=== PATIENT | male | born 1955 | race Caucasian/White ===

== ENCOUNTER 2016-12-16 14:08 | Inpatient (IN) | payer MEDICARE, MEDICAID ==
[~2016-12-16] VITALS: Ht 167.6 cm; Wt 58.5 kg
[~2016-12-16 14:08] MED LIST: AC325T PO; ACET650S13 RC; ALBU0.8322 IH; AZTH250C PO; CRANBERRY PO; DCS100C PO; MAGN64TA8 PO; MULT-963 PO; NF-ESOM40C PO; OLN10T PO; ONDAN4ODT PO; PHEN64.8 PO; PNT40TEC PO; SULF-109 PO
--- OUTSIDE RECORDS SUMMARY | 2016-12-16 14:15 | XMS REPORT | Continuity of Care Document ---
Author Author [facility] Organization [facility] Address Unknown Phone Unavailable Care Team Providers Care [employer] Helper Name Role Phone JUSTIN DUNBAR DO PP Insurance Providers Payer Name Policy Number Subscriber Name Relationship [facility] [id number] PuraJimd Bravo Self / Same As Patient [employer] Medicare [id number] [place]ha[place] Bravo Self / Same As Patient Advance Directives Directive Response Recorded Date Advance Directives N 08/20/13 7:43pm Problems No Known Problems or Medical conditions. Social History History Response Recorded Date/Time Alcohol Use Denies Use 08/08/13 12:52pm Recreational Drug Use N 08/08/13 12:52pm Allergies, Adverse Reactions, Alerts Allergen Type Severity Reaction Last Updated No Known Drug Allergies 08/08/13 Medications Medication Dose Units Route Sig Qty Days Acetaminophen (Tylenol) 650 Mg RC Q4H PRN Albuterol Sulfate (Proventil 2.5 Mg/3 Ml Ns) 2.5 Mg IH QID Pantoprazole Sodium (Protonix) 40 Mg PO DAILY Ondansetron HCl (Zofran Oral Dissolve) 4 Mg PO TID PRN Multivitamin (Multi-Vitamin Daily) 1 Each PO DAILY Phenobarbital (PHENobarbital Tab) 64.8 Mg PO TID Olanzapine (Zyprexa 10 Mg Tab) 10 Mg PO HS Esomeprazole Magnesium (Nexium) 1 Cap PO DAILY 30 Acetaminophen (Tylenol) 325 Mg PO Q6H PRN Sulfamethoxazole/Trimethoprim (Septra Ds Tablet) 1 Tab PO BID Magnesium Chloride (Mag-Sr 64) 1 Each PO TID Docusate Sodium (Colace Cap) 100 Mg PO DAILY Azithromycin (Zithromax) 1 Tab PO DAILY 5 Immunizations Name Given Type Date of Pneumonia Vaccine 08/29/09 H Date of Influenza Vaccine 08/29/13 H influenza, split (incl. purified surface antigen) 08/29/13 A influenza, split (incl. purified surface antigen) 08/29/13 A Response Recorded Date/Time Status not known Unknown Results Test Date Result Interp. Ref. Range Alanine Aminotransferase (ALT/SGPT) August 08, 2013 10: 45am 103 U/L H 30-65 Albumin August 08, 2013 10:45am 2.1 G /DL L 3.4-5.0 Alkaline Phosphatase August 08, 2013 10:45am 183 U/L H 50-136 Amylase Level August 08, 2013 10:45am 291 U/L H 25-115 Anisocytosis August 08, 2013 10:45am MODERATE - Aspartate Amino Transf (AST/SGOT) August 08, 2013 10: 45am 53 U/L H 15-37 BUN/Creatinine Ratio August 08, 2013 10:45am 19 - Band Neutrophils August 08, 2013 10:45am 38 % - Basophils # (Auto) August 08, 2013 10:45am 0.0 10^3/uL N 0.0-0.1 Basophils % (Manual) August 08, 2013 10:45am 0 % - Basophils (%) (Auto) August 08, 2013 10:45am 0 % N 0-10 Blood Urea Nitrogen August 08, 2013 10:45am 30 MG/DL H 7-18 C-Reactive Protein August 08, 2013 10:45am 13.8 MG/DL H 0.2-0.9 Calcium Level August 08, 2013 10:45am 7.6 MG/DL L 8.5-10.1 Carbon Dioxide Level August 08, 2013 10:45am 24 MMOL/L N 21-32 Chloride Level August 08, 2013 10:45am 118 MMOL/L H 101-110 Creatinine August 08, 2013 10:45am 1.6 MG/DL H 0.6-1.3 Eosinophils # (Auto) August 08, 2013 10:45am 0.0 10^3/uL N 0.0-0.3 Eosinophils % (Manual) August 08, 2013 10:45am 0 % - Eosinophils (%) (Auto) August 08, 2013 10:45am 0 % N 0-10 Glucose Level August 08, 2013 10:45am 90 MG/DL N 74-106 Hematocrit August 08, 2013 10:45am 29 % L 40-54 Hemoglobin August 08, 2013 10:45am 9.8 G/DL L 13.3-17.7 Lactic Acid Level August 08, 2013 10:45am 0.8 MMOL/L N 0.4-2.0 Lymphocytes # (Auto) August 08, 2013 10:45am 0.2 X 10^3 L 1.0-4.0 Lymphocytes % (Manual) August 08, 2013 10:45am 4 % - Lymphocytes (%) (Auto) August 08, 2013 10:45am 4 % L 12-44 Macrocytosis August 08, 2013 10:45am MODERATE - Magnesium Level August 08, 2013 10:45am 3.6 MG/DL H 1.8-2.4 Mean Corpuscular Hemoglobin August 08, 2013 10:45am 33 PG N 25-34 Mean Corpuscular Hemoglobin Concent August 08, 2013 10: 45am 33 G/DL N 32-36 Mean Corpuscular Volume August 08, 2013 10:45am 99 FL N 80-99 Mean Platelet Volume August 08, 2013 10:45am 11.6 FL H 7.4-10.4 Monocytes # (Auto) August 08, 2013 10:45am 0.3 X 10^3 N 0.0-1.0 Monocytes % (Manual) August 08, 2013 10:45am 3 % - Monocytes (%) (Auto) August 08, 2013 10:45am 6 % N 0-12 Neutrophils # (Auto) August 08, 2013 10:45am 5.0 X 10^3 N 1.8-7.8 Neutrophils % (Manual) August 08, 2013 10:45am 55 % - Neutrophils (%) (Auto) August 08, 2013 10:45am 90 % H 42-75 Platelet Count August 08, 2013 10:45am 90 10^3/uL L 130-400 Potassium Level August 08, 2013 10:45am 5.1 MMOL/L H 3.6-5.0 Red Blood Count August 08, 2013 10:45am 2.96 10^6/uL L 4.35-5.85 Red Cell Distribution Width August 08, 2013 10:45am 16.6 % H 10.0-14.5 Sodium Level August 08, 2013 10:45am 146 MMOL/L H 135-145 Total Bilirubin August 08, 2013 10:45am 0.3 MG/DL N 0.0-1.0 Total Protein August 08, 2013 10:45am 5.7 G/DL L 6.4-8.2 Urine Amorphous Sediment August 08, 2013 10:53am LARGE TITO URATES /LPF H - Urine Bacteria August 08, 2013 10:53am FEW /HPF H - Urine Bilirubin August 08, 2013 10:53am NEGATIVE - Urine Calcium Oxalate Crystals August 08, 2013 10:53am FEW /LPF H - Urine Casts August 08, 2013 10:53am NONE /LPF - Urine Clarity August 08, 2013 10:53am VERY CLOUDY H - Urine Color August 08, 2013 10:53am YELLOW - Urine Crystals August 08, 2013 10:53am NONE /LPF - Urine Culture Indicated August 08, 2013 10:53am YES - Urine Glucose (UA) August 08, 2013 10:53am NEGATIVE - Urine Hyaline Casts August 08, 2013 9:14am 0-2 /LPF H - Urine Ketones August 08, 2013 10:53am 2+ H - Urine Leukocyte Esterase August 08, 2013 10:53am 1+ H - Urine Mucus August 08, 2013 10:53am NEGATIVE /LPF - Urine Nitrite August 08, 2013 10:53am NEGATIVE - Urine Protein August 08, 2013 10:53am 2+ H - Urine RBC August 08, 2013 10:53am NONE /HPF - Urine Specific [place] August 08, 2013 10:53am 1.020 - Urine Squamous Epithelial Cells August 08, 2013 10:53am RARE /HPF - Urine Urobilinogen August 08, 2013 10:53am 1 MG/DL - Urine WBC August 08, 2013 10:53am 5- 10 /HPF H - Urine pH August 08, 2013 10:53am 6.5 - White Blood Count August 08, 2013 10:45am 5.5 10^3/uL N 4.3-11.0 Estimat Glomerular Filtration Rate August 08, 2013 10: 45am 44 - Urine RBC (Auto) August 08, 2013 10:53am NEGATIVE - Procedures Procedure Code Date EXC FACE-MM B9+FANG >4 [place] [id number] 09/05/07 Encounters Encounter Location Date/Time Discharged Inpatient [facility] 11:36am Departed Emergency Room [facility] 12 :00am
[2016-12-16] MEDS ORDERED: NS IV 1000 ML 1,000 ML IV ONE (14:38)
--- NOTE | 2016-12-16 15:00 | ED GI ---
General Chief Complaint: Abdominal/GI Problems Stated Complaint: VOMITING BLOOD Nursing Triage Note: PT BROUGHT IN BY STAFF WITH C/O VOMITING THIS AM. STAFF REPORTS THAT IT WAS DARK AND LOOKED "BLOODY". PT IS MR AND IS UNABLE TO GIVE HX OR C/O Sepsis Screen: No Definite Risk Source of Information: Caregiver Exam Limitations: Physical Impairments History of Present Illness Time Seen By Provider: 14:44 Initial Comments Patient has significant MR disease and is not able to answer questions for self. He is somewhat self functional with assistance. He apparently had red or brown vomitus this morning. She does have history of reflux disease and does take PPI for this. He has not had anything to eat today. Seen by provider today who recommended evaluation in the ER. He is here for evaluation. Does have mild fever. Caregivers report that he has had increased behaviors of acting out but is alert and walked in on his own accord. No report of breathing problems. No report of diarrhea. Timing/Duration: 4-6 Hours Severity/Quality: Mild, Moderate, Other (vomiting. Does not appear to be tender anywhere.) Modifying Factors: Worsens With Eating Associated Symptoms: Fever/Chills Nausea/VomitingNo Shortness of Air Allergies and Home Medications Allergies Coded Allergies: No Known Drug Allergies (Unverified , 08/08/13) Home Medications 1 EA PO UD Prescribed by: TIMOTHY DODGE on 02/21/14 1103 Acetaminophen 650 Mg/Supp.rect Supp 650 MG RC Q4H PRN PRN (Reported) Esomeprazole Mag Trihydrate 40 Mg Capsule. #30 1 CAP PO DAILY (Reported) Multivitamin 1 Each Tablet 1 EACH PO DAILY (Reported) Olanzapine 10 Mg Tab 10 MG PO HS (Reported) Review of Systems Constitutional: see HPINo chills, fever EENTM: No Symptoms Reported Respiratory: No Symptoms Reported Cardiovascular: No Symptoms Reported Gastrointestinal: See HPI Vomiting Musculoskeletal: no symptoms reported Other Comments Unable to complete review of systems due to patient's underlying mental condition. Past Bxwiiav-Yayctl-Otxqze Hx Patient Social History Alcohol Use: Denies Use Recreational Drug Use: No Smoking Status: Never a Smoker Recent Foreign Travel: No Contact w/Someone Who Travel: No Recent Infectious Disease Expo: No Recent Hopitalizations: No Physical Abuse Screen: No Sexual Abuse: No Immunizations Up To Date Date of Pneumonia Vaccine: Aug 29, 2009 Date of Influenza Vaccine: Aug 29, 2013 Seasonal Allergies Seasonal Allergies: No Surgeries HX Surgeries: No Respiratory Hx Respiratory Disorders: No Cardiovascular Hx Cardiac Disorders: No Neurological Hx Neurological Disorders: Yes Genitourinary Hx Genitourinary Disorders: No Gastrointestinal Hx Gastrointestinal Disorders: Yes Gastrointestinal Disorders: Gastroesophageal Reflux Musculoskeletal Hx Musculoskeletal Disorders: No Endocrine Hx Endocrine Disorders: No HEENT HX ENT Disorders: No Cancer Hx Cancer: No Psychosocial Hx Psychiatric Problems: Yes Behavioral Health Disorders: Anxiety Integumentary HX Skin/Integumentary Disorder: No Blood Transfusions Hx Blood Disorders: No Reviewed Nursing Assessment Reviewed/Agree w Nursing PMH: Yes Family Medical History Significant Family History: No Pertinent Family Hx Physical Exam Vital Signs VS - Last 72 Hours, by Label 12/16/16 14:35 Temp 99.1 Pulse 116 Resp 16 B/P 98/65 Pulse Ox 94 O2 Delivery Room Air Capillary Refill : Less Than 3 Seconds General Appearance: WD/WN no apparent distress HEENT: PERRL/EOMI TMs normal Neck: full range of motion supple Respiratory: lungs clear normal breath sounds Cardiovascular: No no murmur, tachycardia Peripheral Pulses: 2+ Dorsalis Pedis (R), 2+ Left Dors-Pedis (L), 2+ Radial Pulses (R), 2+ Radial Pulses (L) Gastrointestinal: non tender soft Extremities: non-tender normal inspection Back: normal inspection no CVA tenderness no vertebral tenderness Neurologic/Psychiatric: alert oriented x 3 Skin: normal color warm/dry Progress/Results/Core Measures Results/Orders Lab Results Laboratory Tests Test 12/16/16 15:00 Range/Units Alanine Aminotransferase (ALT/SGPT) 8 0-55 U/L Albumin 3.9 3.2-4.5 G/DL Alkaline Phosphatase 75 40-136 U/L Anion Gap 11 5-14 MMOL/L Aspartate Amino Transf (AST/SGOT) 12 5-34 U/L BUN/Creatinine Ratio 30 Basophils # (Auto) 0.0 0.0-0.1 10^3/uL Basophils (%) (Auto) 0 0-10 % Blood Urea Nitrogen 36 H 7-18 MG/DL C-Reactive Protein High Sensitivity 0.45 0.00-0.50 MG/DL Calcium Level 9.7 8.5-10.1 MG/DL Carbon Dioxide Level 26 21-32 MMOL/L Chloride Level 103 98-107 MMOL/L Creatinine 1.19 0.60-1.30 MG/DL Eosinophils # (Auto) 0.0 0.0-0.3 10^3/uL Eosinophils (%) (Auto) 0 0-10 % Estimat Glomerular Filtration Rate > 60 Glucose Level 144 H 70-105 MG/DL Hematocrit 39 L 40-54 % Hemoglobin 13.3 13.3-17.7 G/DL Lactic Acid Level 2.7 *H 0.5-2.0 MMOL/L Lymphocytes # (Auto) 1.1 1.0-4.0 X 10^3 Lymphocytes (%) (Auto) 9 L 12-44 % Mean Corpuscular Hemoglobin 31 25-34 PG Mean Corpuscular Hemoglobin Concent 34 32-36 G/DL Mean Corpuscular Volume 92 80-99 FL Mean Platelet Volume 10.5 H 7.4-10.4 FL Monocytes # (Auto) 1.4 H 0.0-1.0 X 10^3 Monocytes (%) (Auto) 12 0-12 % Neutrophils # (Auto) 9.7 H 1.8-7.8 X 10^3 Neutrophils (%) (Auto) 79 H 42-75 % Platelet Count 298 130-400 10^3/uL Potassium Level 3.8 3.6-5.0 MMOL/L Red Blood Count 4.25 L 4.35-5.85 10^6/uL Red Cell Distribution Width 12.8 10.0-14.5 % Sodium Level 140 135-145 MMOL/L Total Bilirubin 0.5 0.1-1.0 MG/DL Total Protein 7.1 6.4-8.2 G/DL White Blood Count 12.3 H 4.3-11.0 10^3/uL My Orders Orders-TALHA GILL MD Cbc With Automated Diff (12/16/16 14:38) Comprehensive Metabolic Panel (12/16/16 14:38) Hs C Reactive Protein (12/16/16 14:38) Lactic Acid Analyzer (12/16/16 14:38) Blood Culture (12/16/16 14:38) Saline Lock/Iv-Start (12/16/16 14:38) Ns Iv 1000 Ml (Sodium Chloride 0.9%) (12/16/16 14:38) Chest 1 View, Ap/Pa Only (12/16/16 14:38) Pantoprazole Injection (Protonix Injecti (12/16/16 16:00) Levofloxacin 750 Mg/150 Ml Iv (Levaquin (12/16/16 16:00) Rocephin 1g Iv (12/16/16 16:15) Medications Given in ED Current Medications Medications Dose Ordered Sig/Yoel Route Start Time Stop Time Status Last Admin Dose Admin Sodium Chloride 1,000 ml @ 0 mls/hr Q0M ONCE IV 12/16/16 14:38 12/16/16 14:40 DC 12/16/16 15:13 0 MLS/HR Vital Signs/I&O Vital Sign - Last 12Hours 12/16/16 14:35 Temp 99.1 Pulse 116 Resp 16 B/P 98/65 Pulse Ox 94 O2 Delivery Room Air Blood Pressure Mean: 76 Progress Note : Progress Note Seen and evaluated. IV, labs and chest x-ray ordered. Reviewed UA done yesterday. No acute findings on that at all and no indication of urinary tract infection. Normal saline 1 L bolus. Monitor patient. 1556: Lactic acid is elevated. Question of pneumonia. We will treat as such. Patient is in a prison. He will get IV antibiotics plus control for possible GI bleed via IV Protonix twice a day. Case discussed with Dr. Dunbar who accepts patient for admission, inpatient status. Consult Dr. Conner. 1875, discussed with Dr. Conner and he agrees with plan. Caregivers agreement with plan. Diagnostic Imaging Diagonstic Imaging: Xray Plain Films/CT/US/NM/MRI: chest Comments VIA [facility]. [place], [place] NAME: KIRT THOMPSON [facility] REC#: [id number] PT STATUS: REG ER : 1955 PHYSICIAN: TALHA GILL MD ADMIT DATE: 12/16/16/ER Draft Date of Exam:12/16/16 CHEST 1 VIEW, AP/PA ONLY Clinical indication: Patient complains of vomiting this morning. Staff reports that it was dark and looked bloody. Exam: Portable chest x-ray upright view. Comparisons: Portable chest x-ray dated 09/12/2013. Findings: Lungs/pleura: There is mild bibasilar atelectasis or scarring. There is an interval development of a small infiltrate or atelectasis in the right midlung field/lung base region. The remainder of the lungs are clear. There is no pneumothorax or pleural effusion. Pulmonary vasculature and cardiac silhouette are within normal limits. There is hypertrophic spurs seen throughout the thoracic spine. IMPRESSION: 1: There is mild atelectasis versus infiltrate involving the right midlung field/right lung base region. 2: Otherwise, there is superimposed mild bibasilar atelectasis or scarring. 3: The remainder of the exam shows no significant abnormality. Dictated on workstation # [id number] Dict: 12/16/16 1506 Trans: 12/16/16 1515 [facility] [id number] Interpreted by: ERICA LIU MD Electronically signed by: Departure Communication Time/Spoke to Admitting Phy: 16:00 Time/Spoke to Consulting Physi: 16:05 Impression Impression: Primary Impression: Pneumonia involving right lung Qualified Code: J18.1 - Lobar pneumonia, unspecified organism Additional Impression: Vomiting Qualified Code: K92.0 - Hematemesis Disposition: ADMITTED INPATIENT Condition: Stable Decision to Admit Reason: Admit from ER (General) Decision to Admit/Date: Dec 16, 2016 Time/Decision to Admit Time: 16:00 Departure-Patient Inst. Referrals: JUSTIN DUNBAR DO (PCP/Family) Primary Care Physician TALHA GLIL MD Dec 16, 2016 15:00
[2016-12-16 15:13] LABS: BASOPHILS % (AUTO) 0 % (0-10); EOSINOPHILS % (AUTO) 0 % (0-10); LYMPHOCYTES # (AUTO) 1.1 X 10^3 (1.0-4.0); LYMPHOCYTES % (AUTO) 9 % (12-44); MEAN CORPUSCULAR HEMOGLOBIN 31 PG (25-34); MEAN CORPUSCULAR HGB CONC 34 G/DL (32-36); MEAN CORPUSCULAR VOLUME 92 FL (80-99); MEAN PLATELET VOLUME 10.5 FL (7.4-10.4); MONOCYTES # (AUTO) 1.4 X 10^3 (0.0-1.0); MONOCYTES % (AUTO) 12 % (0-12); NEUTROPHILS # (AUTO) 9.7 X 10^3 (1.8-7.8); NEUTROPHILS % (AUTO) 79 % (42-75); PLATELET COUNT 298 10^3/uL (130-400); RED BLOOD COUNT 4.25 10^6/uL (4.35-5.85); RED CELL DISTRIBUTION WIDTH 12.8 % (10.0-14.5); WHITE BLOOD COUNT 12.3 10^3/uL (4.3-11.0)
--- NOTE | 2016-12-16 15:15 | Diagnostic Imaging Report ---
Clinical indication: Patient complains of vomiting this morning. Staff reports that it was dark and looked bloody. Exam: Portable chest x-ray upright view. Comparisons: Portable chest x-ray dated 09/12/2013. Findings: Lungs/pleura: There is mild bibasilar atelectasis or scarring. There is an interval development of a small infiltrate or atelectasis in the right midlung field/lung base region. The remainder of the lungs are clear. There is no pneumothorax or pleural effusion. Pulmonary vasculature and cardiac silhouette are within normal limits. There is hypertrophic spurs seen throughout the thoracic spine. IMPRESSION: 1: There is mild atelectasis versus infiltrate involving the right midlung field/right lung base region. 2: Otherwise, there is superimposed mild bibasilar atelectasis or scarring. 3: The remainder of the exam shows no significant abnormality. Dictated by: Dictated on workstation # [id number]
[2016-12-16 15:33] LABS: ALANINE AMINOTRANSFERASE 8 U/L (0-55); ALBUMIN 3.9 G/DL (3.2-4.5); ANION GAP 11 MMOL/L (5-14); ASPARTATE AMINO TRANSFERASE 12 U/L (5-34); BILIRUBIN,TOTAL 0.5 MG/DL (0.1-1.0); BLOOD UREA NITROGEN 36 MG/DL (7-18); BUN/CREATININE RATIO 30; CALCIUM 9.7 MG/DL (8.5-10.1); CARBON DIOXIDE 26 MMOL/L (21-32); CHLORIDE 103 MMOL/L (98-107); CREATININE SERUM 1.19 MG/DL (0.60-1.30); GFR ESTIMATED > 60; GLUCOSE 144 MG/DL (70-105); POTASSIUM 3.8 MMOL/L (3.6-5.0); SODIUM 140 MMOL/L (135-145); TOTAL PROTEIN 7.1 G/DL (6.4-8.2); hs C REACTIVE PROTEIN 0.45 MG/DL (0.00-0.50)
[2016-12-16] MEDS ORDERED: LEVOFLOXACIN 750 MG/150 ML IV 150 ML IV ONE (16:00)
[2016-12-16] MEDS ORDERED: PANTOPRAZOLE 40 MG/10 ML (PROTONIX) VIAL IV ONE (16:00)
[2016-12-16] MEDS ORDERED: cefTRIAXone INJECTION 1,000 MG in NORMAL SALINE (BAXTER MINI) 50 ML IV ONE (16:15)
[2016-12-16] MEDS ORDERED: ONDANSETRON 4 MG/2 ML (SDV) Z0FRAN IV ONE (18:00)
[2016-12-16] MEDS ORDERED: AZITHROMYCIN 500 MG/NS 250 ML IVPB IV NR ×2 (18:00)
[2016-12-16] MEDS ORDERED: CATHETER FLUSH 10 ML SYR IV PRN (18:00)
[2016-12-16] MEDS: NS IV 1000 ML 1,000 ML IV SCH (19:21)
[2016-12-16 20:00] VITALS: BP 118/70
[2016-12-16] MEDS ORDERED: MELA1TAB8 PO (20:21)
[2016-12-16] MEDS ORDERED: POLY17PO6 PO (20:22)
[2016-12-16] MEDS ORDERED: OMEP20CA12 PO (20:22)
[2016-12-16] MEDS ORDERED: ONDANSETRON 4 MG/2 ML (SDV) Z0FRAN ONE (21:22)
[2016-12-16] MEDS ORDERED: ACETAMINOPHEN 650 MG SUPP (TYLENOL) RC PRN (21:30)
[2016-12-16] MEDS ORDERED: RT-ALBUTEROL SULF 2.5 MG/3 ML PRE-MIX VIAL INH PRN (22:00)
[2016-12-16] MEDS: OLANZapine 5 MG (ZyPREXA) TAB PO SCH (23:22)
[2016-12-16] MEDS: MELATONIN 3 MG TABLET PO SCH (23:22)
[2016-12-16] MEDS: PANTOPRAZOLE 40 MG/10 ML (PROTONIX) VIAL IV SCH (23:56)
[2016-12-17] VITALS: BP 96/59
[2016-12-17 04:00] VITALS: BP 120/72
[2016-12-17 06:26] LABS: BASOPHILS % (AUTO) 0 % (0-10); EOSINOPHILS % (AUTO) 0 % (0-10); LYMPHOCYTES # (AUTO) 1.5 X 10^3 (1.0-4.0); LYMPHOCYTES % (AUTO) 19 % (12-44); MEAN CORPUSCULAR HEMOGLOBIN 31 PG (25-34); MEAN CORPUSCULAR HGB CONC 33 G/DL (32-36); MEAN CORPUSCULAR VOLUME 93 FL (80-99); MEAN PLATELET VOLUME 10.1 FL (7.4-10.4); MONOCYTES # (AUTO) 0.9 X 10^3 (0.0-1.0); MONOCYTES % (AUTO) 12 % (0-12); NEUTROPHILS # (AUTO) 5.5 X 10^3 (1.8-7.8); NEUTROPHILS % (AUTO) 69 % (42-75); PLATELET COUNT 195 10^3/uL (130-400)
[2016-12-17 06:45] LABS: ALANINE AMINOTRANSFERASE 10 U/L (0-55); ALBUMIN 3.3 G/DL (3.2-4.5); ANION GAP 5 MMOL/L (5-14); ASPARTATE AMINO TRANSFERASE 15 U/L (5-34); BILIRUBIN,TOTAL 0.4 MG/DL (0.1-1.0); BLOOD UREA NITROGEN 33 MG/DL (7-18); BUN/CREATININE RATIO 37; CALCIUM 8.3 MG/DL (8.5-10.1); CARBON DIOXIDE 21 MMOL/L (21-32); CHLORIDE 113 MMOL/L (98-107); CREATININE SERUM 0.89 MG/DL (0.60-1.30); GFR ESTIMATED > 60; GLUCOSE 88 MG/DL (70-105); POTASSIUM 4.1 MMOL/L (3.6-5.0); SODIUM 139 MMOL/L (135-145); TOTAL PROTEIN 5.8 G/DL (6.4-8.2)
[2016-12-17] MEDS: NS IV 1000 ML 1,000 ML IV SCH ×3 (07:05→22:29)
--- NOTE | 2016-12-17 08:18 | Progress Note-Pre Operative ---
Pre-Operative Progress Note H&P Reviewed The H&P was reviewed, patient examined and no changes noted. Date H&P Reviewed: Dec 17, 2016 Time H&P Reviewed: 08:15 Pre-Operative Diagnosis: hematamesis STEVE THOMAS MD Dec 17, 2016 08:18
--- NOTE | 2016-12-17 08:19 | Conscious Sedation/ASA ---
Conscious Sedation Pre-Proced Time Reviewed: 08:15 ASA Class: 2 Airway Mallampati Classification: (alturas appropriate class) I. II. III, IV Lungs Heart ASA score ASA 1: a normal healthy patient ASA 2: a patient with a mild systemic disease (mid diabetes, controlled hypertension, obesity ASA 3: a patient with a severe systemic disease that limits activity (angina , COPD, prior Myocardial infarction) ASA 4: a patient with an incapacitating disease that is a constant threat to life (CHF, renal failure) ASA 5: a moribund patient not expected to survive 24 hrs. (ruptured aneurysm) ASA 6: a declared brain patient whose organs are being harvested. For emergent operations, add the letter E after the classification Grade 2 Sedation Plan: Analgesia, Amnesia, Plan communicated to team members, Discussed options with patient/fam, Discussed risks with patient/fam Note The patient is an appropriate candidate to undergo the planned procedure, sedation, and anesthesia. The patient immediately re-assessed prior to indication. STEVE THOMAS MD Dec 17, 2016 08:19
[2016-12-17 08:28] VITALS: BP 137/77
--- NOTE | 2016-12-17 08:29 | History & Physicial ---
History of Present Illness History of Present Illness Reason for visit/HPI patient is resident sam Davies. Patient is MR. Patient unable to give any history. According to staff the patient vomited up which looked like blood. Patient sent out to the emergency room. Chest x-ray shows right lung pneumonia. Patient admitted Date of Admission Dec 16, 2016 at 16:14 I consulted on this patient on 12/17/16 08:27 Attending Physician Ben Dunbar DO Admitting Physician Ben Dunbar DO Consult Allergies and Home Medications Allergies Coded Allergies: No Known Drug Allergies (Unverified , 08/08/13) Home Medications Acetaminophen 650 Mg/Supp.rect Supp 650 MG RC Q4H PRN PRN (Reported) Melatonin 1 Mg Tablet 1 MG PO HS (Reported) Multivitamin 1 Each Tablet 1 EACH PO DAILY (Reported) Olanzapine 10 Mg Tab 10 MG PO HS (Reported) Omeprazole 20 Mg Capsule.dr 20 MG PO DAILY (Reported) Polyethylene Glycol 3350 17 Gm Powd.pack 17 GM PO DAILY (Reported) Past Sybnnsw-Kqguej-Kmbkuh Hx Patient Social History Marrital Status: single Employed/Student: unemployed Alcohol Use: Denies Use Recreational Drug Use: No Smoking Status: Never a Smoker Physical Abuse Screen: No Sexual Abuse: No Recent Foreign Travel: No Contact w/other who traveled: No Recent Hopitalizations: No Recent Infectious Disease Expo: No Immunizations Up To Date Date of Pneumonia Vaccine: Aug 29, 2009 Date of Influenza Vaccine: Sep 29, 2016 Seasonal Allergies Seasonal Allergies: No Surgeries HX Surgeries: No Respiratory Hx Respiratory Disorders: No Cardiovascular Hx Cardiovascular Disorders: No Neurological Hx Neurological Disorders: Yes Reproductive System Sexually Transmitted Disease: No HIV/AIDS: No Genitourinary Hx Genitourinary Disorders: No Gastrointestinal Hx Gastrointestinal Disorders: Yes Gastrointestinal Disorders: Gastroesophageal Reflux, Chronic Constipation Musculoskeletal Hx Musculoskeletal Disorders: No Endocrine Hx Endocrine Disorders: No HEENT HX ENT Disorders: No Loss of Vision: Denies Cancer Hx Cancer: No Psychosocial Hx Psychiatric Problems: Yes Behavioral Health Disorders: Anxiety Integumentary HX Skin/Integumentary Disorder: No Blood Transfusions Hx Blood Disorders: No Reviewed Nursing Assessment Reviewed/Agree w Nursing PMH: Yes Family Medical History Significant Family History: No Pertinent Family Hx Family Hx: Patient reports no known family medical history. Constitutional: no symptoms reported EENTM: no symptoms reported Respiratory: no symptoms reported Cardiovascular: no symptoms reported Gastrointestinal: vomiting other (metastasis) Genitourinary: no symptoms reported Physical Exam Vital Signs Vital Sign - Last 12Hours 12/16/16 14:35 Temp 99.1 Pulse 116 Resp 16 B/P 98/65 Pulse Ox 94 O2 Delivery Room Air Capillary Refill : Less Than 3 Seconds General Appearance: No Apparent Distress Thin Eyes: Bilateral Eye Normal Inspection HEENT: TMs Normal Normal ENT Inspection Neck: Full Range of Motion Normal Inspection Respiratory: Chest Non Tender No Accessory Muscle Use No Respiratory Distress Cardiovascular: Regular Rate, Rhythm No Murmur Gastrointestinal: No Pulsatile Mass Non Tender Soft Assessment/Plan Assessment and Plan vomiting. Hematemesis. Pneumonia. Mentally challenged. Clinical Quality Measures DVT/VTE Risk/Contraindication: Risk Factor Score Per Nursin RFS Level Per Nursing on Admit: 2=Moderate BEN DUNBAR DO Dec 17, 2016 08:29
[2016-12-17] MEDS ORDERED: AZITHROMYCIN 250 MG TAB (ZITHROMAX) PO SCH (09:00)
[2016-12-17] MEDS ORDERED: NORMAL SALINE (BAXTER MINI) 50 ML IV ONE (09:25)
[2016-12-17] MEDS ORDERED: cefTRIAXone 1 GM (ROCEPHIN) VIAL ONE (09:25)
--- NOTE | 2016-12-17 09:38 | CONSULTATION REPORT ---
DATE OF ADMISSION: 12/16/2016 DATE OF CONSULTATION: 12/16/[address] PHYSICIAN [address]. Ben Parker. Mr. Jd Neves is a 61-year-old male with history of mental developmental delay and does need assistance. He was brought in to the emergency department today by his caregivers due to nausea and vomiting and he apparently had some red or coffee-ground material within what he threw up. He does have a history of gastroesophageal reflux disease and has been taking Nexium for this. He has also had issues with weight loss and malnutrition and has had a gastrostomy tube placed in 2012 however, he did better and this was removed approximately one year later. An x-ray was performed, which did potentially show an area of consolidation, which may indicate a potential pneumonia as well. The caregivers do not report any issues with red blood per rectum or any dark tarry stools, as well as no diarrhea or constipation. PAST MEDICAL HISTORY: 1. Mental developmental delay. 2. Gastroesophageal reflux disease. 3. Anxiety. PAST SURGERIES: Gastrostomy tube placement. ALLERGIES: No known drug allergies. MEDICATIONS: 1. Nexium 40 mg daily, 2. Olanzapine 10 mg daily. 3. Acetaminophen 650 mg q.4 hours p.r.n. SOCIAL HISTORY: Negative smoke. Negative alcohol. FAMILY HISTORY: Noncontributory. VITAL SIGNS: Temperature 99.1, blood pressure 98/65, pulse 116, respirations 16, pulse oximetry is 94% on room air. REVIEW OF SYSTEMS: This is slightly thin appearing male in no acute distress. He is not experiencing shortness of breath or difficulty breathing. No chest pain, palpitations, diaphoresis. Nausea and vomiting earlier today with potential hematemesis versus coffee-ground emesis. No diarrhea, constipation. No red blood per rectum. No dark tarry stools. No fever, chills, no recent inadvertent weight loss. PHYSICAL EXAMINATION: CHEST: Good breath sounds bilaterally. HEART: Regular. EXTREMITIES: No lower extremity edema. Negative Eric sign. HEENT: No scleral icterus. No cervical lymphadenopathy. ABDOMEN: Soft, nontender, nondistended. LABS: WBC 12.3, hemoglobin 13.3, hematocrit 39, platelets 298, total bilirubin 0.5, AST 12, ALT 8. ASSESSMENT AND PLAN: 61-year-old male with possible upper GI bleed, as well as nausea and vomiting. We will continue with IV hydration as well as PPI IV on a b.i.d. basis. We will also proceed with EGD on this admission as well as biopsies as appropriate. Job ID: [id number] Dictated Date: 12/16/2016 16:50:59 Quantity Surveyor Date: 12/17/2016 09:28:44/jennifer
[2016-12-17] MEDS: PANTOPRAZOLE 40 MG/10 ML (PROTONIX) VIAL IV SCH ×2 (09:40→20:42)
[2016-12-17] MEDS: cefTRIAXone 1 GM/NS 50 ML IVPB IV SCH ×2 (09:40)
[2016-12-17] MEDS ORDERED: ACET325T38 PO (09:50)
[2016-12-17] MEDS ORDERED: CARB15DR87 EACH EAR (09:50)
[2016-12-17] MEDS ORDERED: LIDOCAINE JELLY 2% (XYLOCAINE) 5 ML TUBE ONE (10:26)
[2016-12-17] MEDS ORDERED: MIDAZOLAM 2 MG/2 ML (VERSED) VIAL ONE ×4 (10:26→10:27)
[2016-12-17] MEDS ORDERED: fentaNYL INJECTION 100 MCG/2 ML AMP ONE (10:26)
[2016-12-17] MEDS ORDERED: NS IV 500 ML 500 ML ONE (10:27)
[2016-12-17] MEDS ORDERED: HURRICAINE EXT TUBE (BENZOCAINE) ONE (10:27)
[2016-12-17] MEDS ORDERED: NS IV 500 ML 500 ML IV PRN (10:30)
[2016-12-17] MEDS: fentaNYL INJECTION 100 MCG/2 ML AMP IVP PRN ×2 (10:37→10:39)
[2016-12-17] MEDS: MIDAZOLAM 2 MG/2 ML (VERSED) VIAL IVP PRN ×2 (10:38→10:41)
--- NOTE | 2016-12-17 11:02 | Progress Note-Post Operative ---
Post-Operative Progess Note Pre-Operative Diagnosis hematamesis Post-Operative Diagnosis reflux esophagitis(class C) with previous bleed, moderate-large HH(4-5cm), moderate gastritis with linear erosion, antral polyp Post-Op Procedure Note Date of Procedure: Dec 17, 2016 Name of Procedure: EGD with bx Anesthesia Type CS Estimated blood loss (mL): minimal Specimen(s) collected GE jxn, antrum, antral polyp STEVE THOMAS MD Dec 17, 2016 11:02 am
[2016-12-17] MEDS ORDERED: PANT40TA2 PO (11:04)
[2016-12-17] MEDS ORDERED: SUCR1TAB36 PO (11:04)
--- NOTE | 2016-12-17 11:06 | Discharge Inst-Surgical ---
D/C Lap Instructions-KIDO New, Converted, or Re-Newed RX: RX on Chart Follow Up 1 year Activity as tolerated High Fiber Diet 25g or more per day Avoid Alcohol, Caffeine, Spicy [place] and Acid foods. Drink 64 fluid oz or more of fluids per day. Symptoms to Report: Fever over 101 degree F, Nausea/Vomiting If any problems/questions: Contact your physician or go to Emergency Room STEVE THOMAS MD Dec 17, 2016 11:06
[2016-12-17] MEDS ORDERED: HURRICAINE EXT TUBE (BENZOCAINE) XX PRN (11:15)
[2016-12-17] MEDS ORDERED: FLUMAZENIL (ROMAZICON) 0.1 MG/ML 5 ML VIAL INJ PRN (11:15)
[2016-12-17] MEDS ORDERED: NALOXONE 0.4 MG/ML 1 ML (NARCAN) VIAL IVP PRN (11:15)
[2016-12-17] MEDS ORDERED: LIDOCAINE JELLY 2% (XYLOCAINE) 5 ML TUBE MM PRN (11:15)
[2016-12-17 11:56] VITALS: BP 107/69
[2016-12-17 16:10] VITALS: BP 100/59
[2016-12-17] MEDS: SUCRALFATE 1 GM (CARAFATE) TAB PO SCH ×2 (17:26→20:43)
[2016-12-17 20:00] VITALS: BP 111/64
[2016-12-17] MEDS: OLANZapine 5 MG (ZyPREXA) TAB PO SCH (20:43)
[2016-12-17] MEDS: MELATONIN 3 MG TABLET PO SCH (20:43)
[2016-12-17] MEDS ORDERED: NON-FORMULARY MEDICATION 1 EA EA (Melatonin 1 MG) PO SCH (21:00)
[2016-12-17] MEDS ORDERED: OLANZAPINE 10 MG PO SCH (21:00)
[2016-12-18] VITALS: BP 121/64
[2016-12-18 03:53] VITALS: BP 123/80
[2016-12-18 04:39] LABS: BASOPHILS % (AUTO) 0 % (0-10); EOSINOPHILS # (AUTO) 0.2 10^3/uL (0.0-0.3); EOSINOPHILS % (AUTO) 3 % (0-10); LYMPHOCYTES # (AUTO) 1.9 X 10^3 (1.0-4.0); LYMPHOCYTES % (AUTO) 32 % (12-44); MEAN CORPUSCULAR HEMOGLOBIN 31 PG (25-34); MEAN CORPUSCULAR HGB CONC 33 G/DL (32-36); MEAN CORPUSCULAR VOLUME 94 FL (80-99); MONOCYTES # (AUTO) 0.7 X 10^3 (0.0-1.0); MONOCYTES % (AUTO) 11 % (0-12); NEUTROPHILS # (AUTO) 3.3 X 10^3 (1.8-7.8); NEUTROPHILS % (AUTO) 54 % (42-75); PLATELET COUNT 171 10^3/uL (130-400); RED BLOOD COUNT 3.39 10^6/uL (4.35-5.85); WHITE BLOOD COUNT 6.1 10^3/uL (4.3-11.0)
[2016-12-18 05:05] LABS: ALANINE AMINOTRANSFERASE 12 U/L (0-55); ALBUMIN 3.3 G/DL (3.2-4.5); ANION GAP 8 MMOL/L (5-14); ASPARTATE AMINO TRANSFERASE 22 U/L (5-34); BILIRUBIN,TOTAL 0.3 MG/DL (0.1-1.0); BLOOD UREA NITROGEN 18 MG/DL (7-18); BUN/CREATININE RATIO 21; CALCIUM 8.3 MG/DL (8.5-10.1); CARBON DIOXIDE 21 MMOL/L (21-32); CHLORIDE 111 MMOL/L (98-107); CREATININE SERUM 0.85 MG/DL (0.60-1.30); GFR ESTIMATED > 60; GLUCOSE 78 MG/DL (70-105); SODIUM 140 MMOL/L (135-145); TOTAL PROTEIN 5.9 G/DL (6.4-8.2)
[2016-12-18] MEDS: SUCRALFATE 1 GM (CARAFATE) TAB PO SCH ×4 (05:35→20:31)
[2016-12-18 08:00] VITALS: BP 133/78
[2016-12-18] MEDS: PANTOPRAZOLE 40 MG/10 ML (PROTONIX) VIAL IV SCH (08:31)
[2016-12-18] MEDS: cefTRIAXone 1 GM/NS 50 ML IVPB IV SCH ×2 (08:32)
--- NOTE | 2016-12-18 08:39 | Diagnostic Imaging Report ---
EXAMINATION: Portable upright radiograph of the chest. INDICATION: Followup pneumonia. COMPARISON: 12/16/2016. FINDINGS: There is increased bibasilar atelectasis or infiltrate. The heart size is normal. No effusion or pneumothorax is seen. The mediastinum and summer appear unremarkable. IMPRESSION: Increased bibasilar infiltrates and/or atelectasis. Dictated by: Dictated on workstation # [id number]
--- NOTE | 2016-12-18 08:43 | Progress Note (SOAP) ---
Subjective Subjective/Events-last exam patient doing better today. Patient had EGD. Plan to discharge today on medications. Waiting for chest x-ray report Objective Exam Vital Signs Date Time Temp Pulse Resp B/P Pulse Ox O2 Delivery O2 Flow Rate FiO2 12/18/16 03:53 98.3 87 20 123/80 95 Room Air 12/18/16 00:00 97.9 81 20 121/64 96 Room Air 12/17/16 20:40 Room Air 12/17/16 20:00 97.8 90 18 111/64 95 Room Air 12/17/16 16:10 99.3 84 20 100/59 94 Room Air 12/17/16 11:56 97.0 84 20 107/69 93 Room Air I & O 12/18/16 07:00 Intake Total 2444 ml Output Total 0 ml Balance 2444 ml Capillary Refill : Less Than 3 Seconds General Appearance: No Apparent Distress WD/WN HEENT: Normal ENT Inspection Neck: Normal Inspection Non Tender Respiratory: Chest Non Tender Lungs Clear Normal Breath Sounds No Accessory Muscle Use No Respiratory Distress Cardiovascular: Regular Rate, Rhythm Gastrointestinal: non tender soft Results Lab Laboratory Tests 12/17/16 08:45 12/17/16 12:30 12/17/16 16:10 12/18/16 04:17 Laboratory Tests 12/17/16 08:45: Hematocrit 32L, Hemoglobin 10.7L 12/17/16 12:30: Hematocrit 33L, Hemoglobin 10.9L 12/17/16 16:10: Hematocrit 32L, Hemoglobin 10.5L 12/18/16 04:17: Hematocrit 32L, Hemoglobin 10.5L, Alanine Aminotransferase (ALT/SGPT) 12, Albumin 3.3, Alkaline Phosphatase 63, Anion Gap 8, Aspartate Amino Transf (AST/ SGOT) 22, BUN/Creatinine Ratio 21, Basophils # (Auto) 0.0, Basophils (%) (Auto) 0, Blood Urea Nitrogen 18, Calcium Level 8.3L, Carbon Dioxide Level 21, Chloride Level 111H, Creatinine 0.85, Eosinophils # (Auto) 0.2, Eosinophils (%) (Auto) 3, Estimat Glomerular Filtration Rate > 60, Glucose Level 78, Lymphocytes # (Auto) 1.9, Lymphocytes (%) (Auto) 32, Mean Corpuscular Hemoglobin 31, Mean Corpuscular Hemoglobin Concent 33, Mean Corpuscular Volume 94, Mean Platelet Volume 10.0, Monocytes # (Auto) 0.7, Monocytes (%) (Auto) 11, Neutrophils # (Auto) 3.3, Neutrophils (%) (Auto) 54, Platelet Count 171, Potassium Level 4.0, Red Blood Count 3.39L, Red Cell Distribution Width 13.0, Sodium Level 140, Total Bilirubin 0.3, Total Protein 5.9L, White Blood Count 6.1 Microbiology 12/16/16 Blood Culture - Preliminary, Resulted Benja Finney Neg (Jazz Singer) Assessment/Plan Assessment/Plan Assess & Plan/Chief Complaint no active bleed. Waiting for chest x-ray report. Planning to discharge today. Diagnosis/Problems: Clinical Quality Measures DVT/VTE Risk/Contraindication: Risk Factor Score Per Nursin RFS Level Per Nursing on Admit: 2=Moderate Contraindications-Pharm: Other *list below* JUSTIN DUNBAR DO Dec 18, 2016 08:43
[2016-12-18] MEDS ORDERED: CEFD300C3 PO (10:01)
[2016-12-18] MEDS ORDERED: PANT40TA2 PO (10:06)
[2016-12-18] MEDS ORDERED: SUCR1TAB36 PO (10:06)
--- NOTE | 2016-12-18 11:09 | Progress Note (SOAP) ---
Subjective Subjective/Events-last exam doing well. tolerating diet. no nausea/vomiting, no clinical bleeding. Objective Exam Vital Signs Date Time Temp Pulse Resp B/P Pulse Ox O2 Delivery O2 Flow Rate FiO2 12/18/16 08:49 94 12/18/16 08:31 Room Air 12/18/16 08:00 97.8 89 21 133/78 12/18/16 03:53 98.3 87 20 123/80 95 Room Air 12/18/16 00:00 97.9 81 20 121/64 96 Room Air 12/17/16 20:40 Room Air 12/17/16 20:00 97.8 90 18 111/64 95 Room Air 12/17/16 16:10 99.3 84 20 100/59 94 Room Air 12/17/16 11:56 97.0 84 20 107/69 93 Room Air I & O 12/18/16 07:00 Intake Total 2444 ml Output Total 0 ml Balance 2444 ml Capillary Refill : Less Than 3 Seconds General Appearance: No Apparent Distress HEENT: PERRL/EOMI Neck: Full Range of Motion Respiratory: Chest Non Tender Lungs Clear Cardiovascular: Regular Rate, Rhythm Gastrointestinal: normal bowel sounds non tender soft Extremity: Normal Capillary Refill Neurologic/Psychiatric: Alert Oriented x3 Skin: Normal Color Lymphatic: No Adenopathy Results Lab Laboratory Tests 12/17/16 12:30: Hematocrit 33L, Hemoglobin 10.9L 12/17/16 16:10: Hematocrit 32L, Hemoglobin 10.5L 12/18/16 04:17: Hematocrit 32L, Hemoglobin 10.5L, Alanine Aminotransferase (ALT/SGPT) 12, Albumin 3.3, Alkaline Phosphatase 63, Anion Gap 8, Aspartate Amino Transf (AST/ SGOT) 22, BUN/Creatinine Ratio 21, Basophils # (Auto) 0.0, Basophils (%) (Auto) 0, Blood Urea Nitrogen 18, Calcium Level 8.3L, Carbon Dioxide Level 21, Chloride Level 111H, Creatinine 0.85, Eosinophils # (Auto) 0.2, Eosinophils (%) (Auto) 3, Estimat Glomerular Filtration Rate > 60, Glucose Level 78, Lymphocytes # (Auto) 1.9, Lymphocytes (%) (Auto) 32, Mean Corpuscular Hemoglobin 31, Mean Corpuscular Hemoglobin Concent 33, Mean Corpuscular Volume 94, Mean Platelet Volume 10.0, Monocytes # (Auto) 0.7, Monocytes (%) (Auto) 11, Neutrophils # (Auto) 3.3, Neutrophils (%) (Auto) 54, Platelet Count 171, Potassium Level 4.0, Red Blood Count 3.39L, Red Cell Distribution Width 13.0, Sodium Level 140, Total Bilirubin 0.3, Total Protein 5.9L, White Blood Count 6.1 Microbiology 12/16/16 Blood Culture - Preliminary, Resulted Staph, Coag Neg (Flat Finisher) Assessment/Plan Assessment/Plan Assess & Plan/Chief Complaint Upper GI bleed from reflux esophagitis, hiatal hernia and gastritis. no clinical bleeding. recommend adding protonix to nexium and carafate QID for 2 weeks then PRN. Diagnosis/Problems: Clinical Quality Measures DVT/VTE Risk/Contraindication: Risk Factor Score Per Nursin RFS Level Per Nursing on Admit: 2=Moderate Contraindications-Pharm: Other *list below* STEVE THOMAS MD Dec 18, 2016 11:09 am
--- NOTE | 2016-12-18 11:26 | OPERATIVE REPORT ---
PROCEDURE PHYSICIAN: STEVE CONNER DATE OF ADMISSION: 12/16/2016 DATE OF PROCEDURE: 12/17/2016 ATTENDING PHYSICIAN: Dr. Parker PREOPERATIVE DIAGNOSIS: Upper gastrointestinal bleeding. POSTOPERATIVE DIAGNOSES: 1. Reflux esophagitis, class C with signs of previous bleeding. 2. Moderate to large hiatal hernia, approximately 4 to 5 cm in size. 3. Moderate to severe gastritis with linear erosions. 4. Antral polyp. PROCEDURE: EGD with biopsy. SURGEON: Dr. Conner. ANESTHESIA: Conscious sedation. ESTIMATED BLOOD LOSS: Minimal. FINDINGS: 1. Reflux esophagitis, class C with signs of previous bleeding. 2. Moderate to large size hiatal hernia, approximately 4 to 5 cm in size. 3. Moderate to severe gastritis with linear erosions. 4. The pylorus and duodenum appeared normal. DISPOSITION: The patient tolerated the procedure well. Mr. Jd Neves is a 61-year-old male with a history mental developmental delay and does live in assisted living. He is brought to the emergency department by his caregivers due to the nausea and vomiting and coffee-ground emesis. He has a long-standing history of gastroesophageal reflux disease and has been taking Nexium for this. He has also had issues with weight loss and malnutrition and has had a gastrostomy tube placed and 2013 however, he was able to tolerate fluids and liquids better and this was removed approximately one year later. He also did have continued decrease in hemoglobin, however, no clinical bleeding. The patient was brought to endoscopy suite, laid in the left lateral decubitus position with the head slightly elevated. After adequate IV pain and sedative medications and conscious sedation anesthesia, the mouthpiece was applied. The endoscope was then placed in the mouth, visualizing the pharynx and hypopharyngeal region. Vocal cords, epiglottis and vallecula identified and appeared to be normal. The endoscope was then gently intubated into the esophageal opening and the esophagus insufflated. The endoscope was then advanced through the first, second, and 3rd portions esophagus. At the level of the GE junction, a moderate to severe reflux esophagitis, class B identified. There was significant irritation, as well as signs of previous bleeding. There was also clinical Mercer's esophagus. A biopsy was taken of the GE junction with forceps and electrocautery with visualization of good hemostasis. The endoscope was then advanced into the stomach and endoscope retroflexed visualizing a moderate to large size hiatal hernia 4 to 5 cm in size. There was also moderate to severe gastritis with linear erosions throughout the body of the stomach; however, no active bleeding. A biopsy was taken of the antrum with forceps and electrocautery with visualization of good hemostasis. There is also antral polyp which was biopsied and destroyed using forceps and electrocautery with visualization of good hemostasis. The endoscope was then advanced through the pylorus and the first and second portions of the duodenum, which appeared normal with no distal obstructions. The endoscope was slowly withdrawn while taking a second look and suctioning of residual air with no additional findings. The patient tolerated the procedure well. We will start clear liquid diet and advance as tolerated. He will need to undergo proper medical management with the necessary lifestyle and diet accommodation including smaller, more frequent meals, avoidance of eating at night, as well as head elevation while lying supine. He also needs to avoid caffeinated beverages, spicy, greasy and acidic foods. We will also have him continue to take his Nexium however, also had Protonix 40 mg daily, as well as Carafate 1 gram q.i.d. for the next 2 weeks, as well as a p.r.n. basis. Due to the severity of his reflux esophagitis and clinical Mercer's we will recommend follow-up in approximately one year. Job ID: [id number] Dictated Date: 12/17/2016 11:11:49 [employer] Applier Date: 12/18/2016 11:09:36 / jennifer
[2016-12-18 12:41] VITALS: BP 138/90
[2016-12-18 16:09] VITALS: BP 116/75
[2016-12-18 20:26] VITALS: BP 121/72
[2016-12-18] MEDS: CEFDINIR 300 MG (OMNICEF) CAP PO SCH (20:31)
[2016-12-18] MEDS: PANTOPRAZOLE 40 MG (PROTONIX) TAB PO SCH (20:31)
[2016-12-18] MEDS: OLANZapine 5 MG (ZyPREXA) TAB PO SCH (20:31)
[2016-12-18] MEDS: MELATONIN 3 MG TABLET PO SCH (20:31)
[2016-12-19] VITALS: BP 116/73
[2016-12-19 04:00] VITALS: BP 130/86
[2016-12-19] MEDS: PANTOPRAZOLE 40 MG (PROTONIX) TAB PO SCH (06:10)
[2016-12-19] MEDS: SUCRALFATE 1 GM (CARAFATE) TAB PO SCH ×2 (06:10→10:57)
[2016-12-19 08:05] VITALS: BP 134/80
[2016-12-19] MEDS: CEFDINIR 300 MG (OMNICEF) CAP PO SCH (08:53)
[2016-12-19] MEDS ORDERED: CEFD300C3 PO (10:37)
[2016-12-19] MEDS ORDERED: DOXY100C2 PO (10:37)
--- NOTE | 2016-12-19 10:40 | Progress Note (SOAP) ---
Subjective Subjective/Events-last exam Fwup pneumonia, upper GI hemorrhage. Patient back to baseline per home staff in room. Wanting to go home. Up walking around. On room air, afebrile, no cough, no respiratory difficulties. Objective Exam Vital Signs Date Time Temp Pulse Resp B/P Pulse Ox O2 Delivery O2 Flow Rate FiO2 12/19/16 08:45 Room Air 12/19/16 08:05 96.5 91 16 134/80 96 Room Air 12/19/16 08:03 95 12/19/16 04:00 97.1 74 18 130/86 95 Room Air 12/19/16 00:00 98.0 85 20 116/73 93 Room Air 12/18/16 21:00 Room Air 12/18/16 20:48 93 12/18/16 20:26 98.7 79 18 121/72 98 Room Air 12/18/16 16:09 97.7 83 18 116/75 96 Room Air 12/18/16 12:41 97.4 92 20 138/90 95 Room Air I & O 12/19/16 07:00 Intake Total 2430 ml Balance 2430 ml Capillary Refill : Less Than 3 Seconds General Appearance: No Apparent Distress Neck: Supple Respiratory: Lungs Clear Cardiovascular: Regular Rate, Rhythm Extremity: Non Tender No Calf Tenderness No Pedal Edema Neurologic/Psychiatric: Alert Results Lab Microbiology 12/16/16 Blood Culture - Preliminary, Resulted Benja Finney Neg (Vehicle Service Agent) Assessment/Plan Assessment/Plan Assess & Plan/Chief Complaint 1. Pneumonia--clinically improved so will DC home on oral cefdinir and doxycycline 2. Upper GI Hemorrhage--home on Protonix and Carafate Diagnosis/Problems: Clinical Quality Measures DVT/VTE Risk/Contraindication: Risk Factor Score Per Nursin RFS Level Per Nursing on Admit: 2=Moderate Contraindications-Pharm: Other *list below* JOAQUIN MALIK DO Dec 19, 2016 10:40
[2016-12-19] MEDS ORDERED: DOXYCYCLINE 100 MG (VIBRAMYCIN) TABLET PO SCH (10:45)
[2016-12-19 11:35] VITALS: BP 137/89
--- NOTE | 2016-12-24 10:51 | Discharge Summary ---
Diagnosis/Chief Complaint Date of Admission Dec 16, 2016 at 16:14 Date of Discharge Dec 19, 2016 at 12:45 Discharge Date: Dec 19, 2016 Admission Diagnosis Admission Diagnosis vomiting. Hematemesis. Pneumonia. Mentally challenged. Discharge Diagnosis hematemesis. Vomiting. Reflux esophagitis. Moderate gastritis. Pneumonia. GERD. Follow-up of stomach and duodenum. Mentally challenged Reason Hospital Visit patient is resident sam Davies. Patient is MR. Patient unable to give any history. According to staff the patient vomited up which looked like blood. Patient sent out to the emergency room. Chest x-ray shows right lung pneumonia. Patient admitted Discharge Summary Procedures EGD by surgeon Consultations surgeon Discharge Physical Examination Allergies: Coded Allergies: No Known Drug Allergies (Unverified , 08/08/13) Vitals & I&Os Vital Signs Date Time Temp Pulse Resp B/P Pulse Ox O2 Delivery O2 Flow Rate FiO2 12/19/16 11:35 96.3 85 20 137/89 94 Room Air Hospital Course patient in hospital did better. Patient had EGD. Patient sent on medicine for pneumonia Labs (last 24 hrs) Laboratory Tests 12/16/16 15:00: Alanine Aminotransferase (ALT/SGPT) 8, Albumin 3.9, Alkaline Phosphatase 75, Anion Gap 11, Aspartate Amino Transf (AST/SGOT) 12, BUN/Creatinine Ratio 30, Basophils # (Auto) 0.0, Basophils (%) (Auto) 0, Blood Urea Nitrogen 36H, C- Reactive Protein High Sensitivity 0.45, Calcium Level 9.7, Carbon Dioxide Level 26, Chloride Level 103, Creatinine 1.19, Eosinophils # (Auto) 0.0, Eosinophils ( %) (Auto) 0, Estimat Glomerular Filtration Rate > 60, Glucose Level 144H, Hematocrit 39L, Hemoglobin 13.3, Lactic Acid Level 2.7*H, Lymphocytes # (Auto) 1.1, Lymphocytes (%) (Auto) 9L, Mean Corpuscular Hemoglobin 31, Mean Corpuscular Hemoglobin Concent 34, Mean Corpuscular Volume 92, Mean Platelet Volume 10.5H, Monocytes # (Auto) 1.4H, Monocytes (%) (Auto) 12, Neutrophils # ( Auto) 9.7H, Neutrophils (%) (Auto) 79H, Platelet Count 298, Potassium Level 3.8 , Red Blood Count 4.25L, Red Cell Distribution Width 12.8, Sodium Level 140, Total Bilirubin 0.5, Total Protein 7.1, White Blood Count 12.3H 12/16/16 17:48: Lactic Acid Level 1.0 12/16/16 20:24: Hematocrit 36L, Hemoglobin 12.1L 12/17/16 00:41: Hematocrit 33L, Hemoglobin 11.1L 12/17/16 06:10: Alanine Aminotransferase (ALT/SGPT) 10, Albumin 3.3, Alkaline Phosphatase 59, Anion Gap 5, Aspartate Amino Transf (AST/SGOT) 15, BUN/Creatinine Ratio 37, Basophils # (Auto) 0.0, Basophils (%) (Auto) 0, Blood Urea Nitrogen 33H, Calcium Level 8.3L, Carbon Dioxide Level 21, Chloride Level 113H, Creatinine 0.89, Eosinophils # (Auto) 0.0, Eosinophils (%) (Auto) 0, Estimat Glomerular Filtration Rate > 60, Glucose Level 88, Hematocrit 33L, Hemoglobin 10.9L, Lactic Acid Level 0.5, Lymphocytes # (Auto) 1.5, Lymphocytes (%) (Auto) 19, Mean Corpuscular Hemoglobin 31, Mean Corpuscular Hemoglobin Concent 33, Mean Corpuscular Volume 93, Mean Platelet Volume 10.1, Monocytes # (Auto) 0.9, Monocytes (%) (Auto) 12, Neutrophils # (Auto) 5.5, Neutrophils (%) (Auto) 69, Platelet Count 195, Potassium Level 4.1, Red Blood Count 3.50L, Red Cell Distribution Width 13.0, Sodium Level 139, Total Bilirubin 0.4, Total Protein 5.8L, White Blood Count 8.0 12/17/16 08:45: Hematocrit 32L, Hemoglobin 10.7L 12/17/16 12:30: Hematocrit 33L, Hemoglobin 10.9L 12/17/16 16:10: Hematocrit 32L, Hemoglobin 10.5L 12/18/16 04:17: Alanine Aminotransferase (ALT/SGPT) 12, Albumin 3.3, Alkaline Phosphatase 63, Anion Gap 8, Aspartate Amino Transf (AST/SGOT) 22, BUN/Creatinine Ratio 21, Basophils # (Auto) 0.0, Basophils (%) (Auto) 0, Blood Urea Nitrogen 18, Calcium Level 8.3L, Carbon Dioxide Level 21, Chloride Level 111H, Creatinine 0.85, Eosinophils # (Auto) 0.2, Eosinophils (%) (Auto) 3, Estimat Glomerular Filtration Rate > 60, Glucose Level 78, Hematocrit 32L, Hemoglobin 10.5L, Lymphocytes # (Auto) 1.9, Lymphocytes (%) (Auto) 32, Mean Corpuscular Hemoglobin 31, Mean Corpuscular Hemoglobin Concent 33, Mean Corpuscular Volume 94, Mean Platelet Volume 10.0, Monocytes # (Auto) 0.7, Monocytes (%) (Auto) 11, Neutrophils # (Auto) 3.3, Neutrophils (%) (Auto) 54, Platelet Count 171, Potassium Level 4.0, Red Blood Count 3.39L, Red Cell Distribution Width 13.0, Sodium Level 140, Total Bilirubin 0.3, Total Protein 5.9L, White Blood Count 6.1 Microbiology 12/16/16 Blood Culture - Final, Complete Staph, Coag Neg (Parking Meter Servicer) Laboratory Tests 12/16/16 15:00 12/16/16 20:24 12/17/16 00:41 12/17/16 06:10 12/17/16 08:45 12/17/16 12:30 12/17/16 16:10 12/18/16 04:17 Pending Labs Microbiology Date/Time Source Procedure Growth Status 12/16/16 15:04 Peripheral Rt Ac Blood Culture - Final Staph, Coag Neg (Parking Meter Servicer) Complete 12/16/16 15:00 Peripheral Lt Hand Blood Culture - Final Staph, Coag Neg (Parking Meter Servicer) Complete Laboratory Tests 12/16/16 15:00: Alanine Aminotransferase (ALT/SGPT) 8, Albumin 3.9, Alkaline Phosphatase 75, Anion Gap 11, Aspartate Amino Transf (AST/SGOT) 12, BUN/Creatinine Ratio 30, Basophils # (Auto) 0.0, Basophils (%) (Auto) 0, Blood Urea Nitrogen 36, C- Reactive Protein High Sensitivity 0.45, Calcium Level 9.7, Carbon Dioxide Level 26, Chloride Level 103, Creatinine 1.19, Eosinophils # (Auto) 0.0, Eosinophils ( %) (Auto) 0, Estimat Glomerular Filtration Rate > 60, Glucose Level 144, Hematocrit 39, Hemoglobin 13.3, Lactic Acid Level 2.7, Lymphocytes # (Auto) 1.1 , Lymphocytes (%) (Auto) 9, Mean Corpuscular Hemoglobin 31, Mean Corpuscular Hemoglobin Concent 34, Mean Corpuscular Volume 92, Mean Platelet Volume 10.5, Monocytes # (Auto) 1.4, Monocytes (%) (Auto) 12, Neutrophils # (Auto) 9.7, Neutrophils (%) (Auto) 79, Platelet Count 298, Potassium Level 3.8, Red Blood Count 4.25, Red Cell Distribution Width 12.8, Sodium Level 140, Total Bilirubin 0.5, Total Protein 7.1, White Blood Count 12.3 12/16/16 17:48: Lactic Acid Level 1.0 12/16/16 20:24: Hematocrit 36, Hemoglobin 12.1 12/17/16 00:41: Hematocrit 33, Hemoglobin 11.1 12/17/16 06:10: Alanine Aminotransferase (ALT/SGPT) 10, Albumin 3.3, Alkaline Phosphatase 59, Anion Gap 5, Aspartate Amino Transf (AST/SGOT) 15, BUN/Creatinine Ratio 37, Basophils # (Auto) 0.0, Basophils (%) (Auto) 0, Blood Urea Nitrogen 33, Calcium Level 8.3, Carbon Dioxide Level 21, Chloride Level 113, Creatinine 0.89, Eosinophils # (Auto) 0.0, Eosinophils (%) (Auto) 0, Estimat Glomerular Filtration Rate > 60, Glucose Level 88, Hematocrit 33, Hemoglobin 10.9, Lactic Acid Level 0.5, Lymphocytes # (Auto) 1.5, Lymphocytes (%) (Auto) 19, Mean Corpuscular Hemoglobin 31, Mean Corpuscular Hemoglobin Concent 33, Mean Corpuscular Volume 93, Mean Platelet Volume 10.1, Monocytes # (Auto) 0.9, Monocytes (%) (Auto) 12, Neutrophils # (Auto) 5.5, Neutrophils (%) (Auto) 69, Platelet Count 195, Potassium Level 4.1, Red Blood Count 3.50, Red Cell Distribution Width 13.0, Sodium Level 139, Total Bilirubin 0.4, Total Protein 5.8, White Blood Count 8.0 12/17/16 08:45: Hematocrit 32, Hemoglobin 10.7 12/17/16 12:30: Hematocrit 33, Hemoglobin 10.9 12/17/16 16:10: Hematocrit 32, Hemoglobin 10.5 12/18/16 04:17: Alanine Aminotransferase (ALT/SGPT) 12, Albumin 3.3, Alkaline Phosphatase 63, Anion Gap 8, Aspartate Amino Transf (AST/SGOT) 22, BUN/Creatinine Ratio 21, Basophils # (Auto) 0.0, Basophils (%) (Auto) 0, Blood Urea Nitrogen 18, Calcium Level 8.3, Carbon Dioxide Level 21, Chloride Level 111, Creatinine 0.85, Eosinophils # (Auto) 0.2, Eosinophils (%) (Auto) 3, Estimat Glomerular Filtration Rate > 60, Glucose Level 78, Hematocrit 32, Hemoglobin 10.5, Lymphocytes # (Auto) 1.9, Lymphocytes (%) (Auto) 32, Mean Corpuscular Hemoglobin 31, Mean Corpuscular Hemoglobin Concent 33, Mean Corpuscular Volume 94, Mean Platelet Volume 10.0, Monocytes # (Auto) 0.7, Monocytes (%) (Auto) 11, Neutrophils # (Auto) 3.3, Neutrophils (%) (Auto) 54, Platelet Count 171, Potassium Level 4.0, Red Blood Count 3.39, Red Cell Distribution Width 13.0, Sodium Level 140, Total Bilirubin 0.3, Total Protein 5.9, White Blood Count 6.1 Radiology Reviewed chest x-ray bibasalir infiltrate Discussion & Recommendations to follow up in office Discharge Home Medications: Active Scripts Active Doxycycline Hyclate 100 Mg Capsule 100 Mg PO BID Cefdinir 300 Mg Capsule 300 Mg PO BID Carafate (Sucralfate) 1 Gm Tablet 1 Gm PO QID TAKE 1 TAB 4 TIMES DAILY FOR 2 WEEKS THEN NEEDED FOR HEARTBURN TYPE SYMPTOMS Protonix (Pantoprazole Sodium) 40 Mg Tablet.dr 40 Mg PO DAILY Reported Tylenol (Acetaminophen) 325 Mg Tablet 650 Mg PO Q6H PRN TAKES 2 (325MG) TABLETS Debrox (Carbamide Peroxide) 15 Ml Drops 10 Drops EACH EAR UD 7 Days Miralax (Polyethylene Glycol 3350) 17 Gm Powd.pack 17 Gm PO DAILY Multi-Vitamin Daily (Multivitamin) 1 Each Tablet 1 Tab PO DAILY Zyprexa 10 Mg Tab (Olanzapine) 10 Mg Tab 10 Mg PO HS Instructions to patient/family Please see electonic discharge instructions given to patient. Clinical Quality Measures DVT/VTE Risk/Contraindication: Risk Factor Score Per Nursin RFS Level Per Nursing on Admit: 2=Moderate Contraindications-Pharm: Other *list below* JUSTIN DUNBAR DO Dec 24, 2016 10:51
== END 2016-12-19 12:45 | disposition home or self-care (01) | DRG 391 ==
LOC: EDUNIT# 14:08 → ER 14:10 → 4TH 16:14
PROVIDERS: ADMIT Family Medicine; ATTEND Family Medicine
PROC: 0DB63ZX Excision of Stomach, Percutaneous Approach, Diagnostic (ICD-10-PCS; 2016-12-17)
PROC: 0DB Gastrointestinal System, Excision (ICD-10-PCS; principal; 2016-12-17 10:26)
DX: K22.8 Other specified diseases of esophagus (principal); K29.71 Gastritis, unspecified, with bleeding; J18.9 Pneumonia, unspecified organism; K21.0 Gastro-esophageal reflux disease with esophagitis; K44.9 Diaphragmatic hernia without obstruction or gangrene; K31.7 Polyp of stomach and duodenum; F79 Unspecified intellectual disabilities; K59.09 Other constipation; F41.9 Anxiety disorder, unspecified
CPT/HCPCS: 36415; 71010; 80053; 83605; 85014; 85018; 85025; 86141; 87040; 94760; 96361; 96374; 96375

== ENCOUNTER → 2017-05-20 | Outpatient (CLI) | payer MEDICARE, MEDICAID ==
[~2017-05-20] MED LIST changes: +ACET325T38 PO; +CARB15DR87 EACH EAR; +CEFD300C3 PO; +DOXY100C2 PO; +MELA1TAB8 PO; +OMEP20CA12 PO; +PANT40TA2 PO; +POLY17PO6 PO; +SUCR1TAB36 PO
== END ==
DX: S92.412A Displaced fracture of proximal phalanx of left great toe, initial encounter for closed fracture (principal); X58.XXXA Exposure to other specified factors, initial encounter; Y99.8 Other external cause status

== ENCOUNTER 2017-12-20 13:10 | Inpatient (IN) | payer MEDICARE, MEDICAID ==
[~2017-12-20] VITALS: Ht 167.6 cm; Wt 60.8 kg
[2017-12-20] MEDS ORDERED: NS 100 ML (IVPB) BAG IV ONE (14:15)
[2017-12-20] MEDS ORDERED: NS IV 1000 ML 1,000 ML IV SCH (14:15)
[2017-12-20] MEDS ORDERED: IOHEXOL 350 MG/ML 100 ML (OMNIPAQUE 350) VIAL IV ONE (14:15)
[2017-12-20 14:16] LABS: BASOPHILS % (AUTO) 0 % (0-10); EOSINOPHILS % (AUTO) 0 % (0-10); HEMATOCRIT 43 % (40-54); HEMOGLOBIN 14.9 G/DL (13.3-17.7); LYMPHOCYTES % (AUTO) 14 % (12-44); MEAN CORPUSCULAR HEMOGLOBIN 31 PG (25-34); MEAN CORPUSCULAR HGB CONC 35 G/DL (32-36); MEAN CORPUSCULAR VOLUME 88 FL (80-99); MONOCYTES # (AUTO) 0.9 X 10^3 (0.0-1.0); MONOCYTES % (AUTO) 12 % (0-12); NEUTROPHILS # (AUTO) 5.5 X 10^3 (1.8-7.8); NEUTROPHILS % (AUTO) 74 % (42-75); PLATELET COUNT 246 10^3/uL (130-400); RED BLOOD COUNT 4.89 10^6/uL (4.35-5.85); RED CELL DISTRIBUTION WIDTH 14.8 % (10.0-14.5); WHITE BLOOD COUNT 7.4 10^3/uL (4.3-11.0)
--- OUTSIDE RECORDS SUMMARY | 2017-12-20 14:29 | XMS REPORT | Continuity of Care Document ---
Author Author [facility] Organization [facility] Address Unknown Phone Unavailable Allergies Active Description Code Type Severity Reaction Onset Reported/Identified Relationship to Patient Clinical Status Yes No Known Drug Allergies [id number] Drug Allergy Unknown N/A 08/08/2013 Medications There is no data. 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 08/30/2013 JUSTIN DUNBAR DO Ot 300.00 ANXIETY STATE NOS 08/30/2013 JUSTIN DUNBAR DO Ot 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 08/30/2013 JUSTIN DUNBAR DO Ot 345.90 EPILEPSY UNSPEC W/O MENTION INTRACTABLE 08/30/2013 JUSTIN DUNBAR DO Ot 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 08/30/2013 JUSTIN DUNBAR DO Ot 416.8 CHR PULMON HEART DIS NEC 08/30/2013 JUSTIN DUNBAR DO Ot 428.0 CONGESTIVE HEART FAILURE NOS 08/30/2013 JUSTIN DUNBAR DO Ot 428.23 ACUTE CHRONIC SYSTOLIC HRT FAILURE 08/30/2013 JUSTIN DUNBAR DO Ot 507.0 FOOD/VOMIT PNEUMONITIS 08/30/2013 JUSTIN DUNBAR DO Ot 518.81 ACUTE RESPIRATORY FAILURE 08/30/2013 JUSTIN DUNBAR DO Ot 530.81 ESOPHAGEAL REFLUX 08/30/2013 GELLENDER DO, JUSTIN Kelsie Ot 577.0 ACUTE PANCREATITIS 08/30/2013 GELLENDER DO, JUSTIN Iglesias Ot 584.9 ACUTE RENAL FAILURE, UNSPECIFIED 08/30/2013 GELLENDER DO, JUSTIN Kelsie Ot 599.0 URIN TRACT INFECTION NOS 08/30/2013 GELLENDER DO, JUSTIN Iglesias Ot 780.65 HYPOTHERMIA NOT ASSOCIATED W LOW ENVIRON 08/30/2013 GELLENDER DO, JUSTIN Iglesias Ot 785.52 SEPTIC SHOCK 08/30/2013 GELLENDER DO, JUSTIN Iglesias Ot 995.92 SEVERE SEPSIS 08/30/2013 GELLENDER DO, JUSTIN Kelsie Ot E930.9 ADV EFF ANTIBIOTIC NOS 12/16/2016 GITA LEMUS, BERNARD Geramn Ot V72.84 EXAM PRE-OPERATIVE NOS 12/16/2016 GITA LEMUS, BERNARD German Ot V55.1 ATTEN TO GASTROSTOMY 12/19/2016 GELLENDER DO, JUSTIN Iglesias Ot F41.9 ANXIETY DISORDER, UNSPECIFIED 12/19/2016 GELLENDER DO, JUSTIN Iglesias Ot F79 UNSPECIFIED INTELLECTUAL DISABILITIES 12/19/2016 GELLENDER DO, JUSTIN Iglesias Ot J18.9 PNEUMONIA, UNSPECIFIED ORGANISM 12/19/2016 GELLENDER DO, JUSTIN Iglesias Ot K21.0 GASTRO-ESOPHAGEAL REFLUX DISEASE WITH ES 12/19/2016 GELLENDER DOJUSTIN Ot K21.9 GASTRO-ESOPHAGEAL REFLUX DISEASE WITHOUT 12/19/2016 GELLENDER DO, JUSTIN Iglesias Ot K22.8 OTHER SPECIFIED DISEASES OF ESOPHAGUS 12/19/2016 GELLENDER DOJUSTIN Ot K29.00 ACUTE GASTRITIS WITHOUT BLEEDING 12/19/2016 GELLENDER DO, JUSTIN Iglesias Ot K29.71 GASTRITIS, UNSPECIFIED, WITH BLEEDING 12/19/2016 GELLENDER DOJUSTIN Ot K31.7 POLYP OF STOMACH AND DUODENUM 12/19/2016 GELLENDER DO, JUSTIN Iglesias Ot K44.9 DIAPHRAGMATIC HERNIA WITHOUT OBSTRUCTION 12/19/2016 GELLENDER DOJUSTIN Ot K59.09 OTHER CONSTIPATION 12/19/2016 GELLENDER DO, JUSTIN Iglesias Ot K92.0 HEMATEMESIS 12/23/2016 GITA LEMUS, BERNARD German Ot V72.84 EXAM PRE-OPERATIVE NOS 12/23/2016 GITA LEMUS, BERNARD German Ot V55.1 ATTEN TO GASTROSTOMY 06/10/2017 GELLENDER DO, JUSTIN Iglesias Ot S92.412A DISP FX OF PROXIMAL PHALANX OF LEFT GREA 06/10/2017 GELLENDER DO, JSUTIN Iglesias Ot X58.XXXA EXPOSURE TO OTHER SPECIFIED FACTORS, INI 06/10/2017 GELLENDER DO, JUSTIN Iglesias Ot Y99.8 OTHER EXTERNAL CAUSE STATUS 06/25/2017 GELLENDER DO, JUSTIN Iglesias Ot S92.412A DISP FX OF PROXIMAL PHALANX OF LEFT GREA 06/25/2017 GELLENDER DO, JUSTIN Iglesias Ot X58.XXXA EXPOSURE TO OTHER SPECIFIED FACTORS, INI 06/25/2017 GELLENDER DO, JUSTIN Iglesias Ot Y99.8 OTHER EXTERNAL CAUSE STATUS Procedures Code Description Performed By Performed On 43.11 PERCUTANEOUS [ENDOSCOPIC] GASTROSTOMY [P 08/24/2013 [id number] EXCISION OF ESOPHAGAST JUNCT, PERC ENDO 12/17/2016 [id number] EXCISION OF STOMACH, PERCUTANEOUS APPROA 12/17/2016 Results Test Result Range Complete blood count (CBC) with automated white blood cell (WBC) differential - 12/16/16 15:00 Blood leukocytes automated count (number/volume) 12.3 10*3/uL 4.3-11.0 Blood erythrocytes automated count (number/volume) 4.25 10*6/uL 4.35-5.85 Venous blood hemoglobin measurement (mass/volume) 13.3 g/dL 13.3-17.7 Blood hematocrit (volume fraction) 39 % 40-54 Automated erythrocyte mean corpuscular volume 92 [foz_us] 80-99 Automated erythrocyte mean corpuscular hemoglobin (mass per erythrocyte) 31 pg 25-34 Automated erythrocyte mean corpuscular hemoglobin concentration measurement ( mass/volume) 34 g/dL 32-36 Automated erythrocyte distribution width ratio 12.8 % 10.0-14.5 Automated blood platelet count (count/volume) 298 10*3/uL 130-400 Automated blood platelet mean volume measurement 10.5 [foz_us] 7.4-10.4 Automated blood neutrophils/100 leukocytes 79 % 42-75 Automated blood lymphocytes/100 leukocytes 9 % 12-44 Blood monocytes/100 leukocytes 12 % 0-12 Automated blood eosinophils/100 leukocytes 0 % 0-10 Automated blood basophils/100 leukocytes 0 % 0-10 Blood neutrophils automated count (number/volume) 9.7 10*3 1.8-7.8 Blood lymphocytes automated count (number/volume) 1.1 10*3 1.0-4.0 Blood monocytes automated count (number/volume) 1.4 10*3 0.0-1.0 Automated eosinophil count 0.0 10*3/uL 0.0-0.3 Automated blood basophil count (count/volume) 0.0 10*3/uL 0.0-0.1 Blood lactic acid measurement (moles/volume) - 12/16/16 15:00 Blood lactic acid measurement (moles/volume) 2.7 mmol/L 0.5-2.0 Comprehensive metabolic panel - 12/16/16 15:00 Serum or plasma sodium measurement (moles/volume) 140 mmol/L 135-145 Serum or plasma potassium measurement (moles/volume) 3.8 mmol/L 3.6-5.0 Serum or plasma chloride measurement (moles/volume) 103 mmol/L 98-107 Carbon dioxide 26 mmol/L 21-32 Serum or plasma anion gap determination (moles/volume) 11 mmol/L 5-14 Serum or plasma urea nitrogen measurement (mass/volume) 36 mg/dL 7-18 Serum or plasma creatinine measurement (mass/volume) 1.19 mg/dL 0.60-1.30 Serum or plasma urea nitrogen/creatinine mass ratio 30 NRG Serum or plasma creatinine measurement with calculation of estimated glomerular filtration rate > NRG Serum or plasma glucose measurement (mass/volume) 144 mg/dL 70-105 Serum or plasma calcium measurement (mass/volume) 9.7 mg/dL 8.5-10.1 Serum or plasma total bilirubin measurement (mass/volume) 0.5 mg/dL 0.1-1.0 Serum or plasma alkaline phosphatase measurement (enzymatic activity/volume) 75 U/L 40-136 Serum or plasma aspartate aminotransferase measurement (enzymatic activity/ volume) 12 U/L 5-34 Serum or plasma alanine aminotransferase measurement (enzymatic activity/volume ) 8 U/L 0-55 Serum or plasma protein measurement (mass/volume) 7.1 g/dL 6.4-8.2 Serum or plasma albumin measurement (mass/volume) 3.9 g/dL 3.2-4.5 Serum or plasma C reactive protein measurement (mass/volume) - 12/16/16 15:00 Serum or plasma C reactive protein measurement (mass/volume) 0.45 mg /dL 0.00-0.50 Bacterial blood culture - 12/16/16 15:00 QUANTITY OF GROWTH Isolated NRG Bacterial blood culture [id number] NRG Bacterial blood culture - 12/16/16 15:04 QUANTITY OF GROWTH Isolated NRG Bacterial blood culture [id number] NR Serum or plasma lactate measurement (moles/volume) - 12/16/16 17:48 Serum or plasma lactate measurement (moles/volume) 1.0 mmol/L 0.5-2.0 Whole blood hemoglobin and hematocrit panel - 12/16/16 20:24 Venous blood hemoglobin measurement (mass/volume) 12.1 g/dL 13.3-17.7 Blood hematocrit (volume fraction) 36 % 40-54 Whole blood hemoglobin and hematocrit panel - 12/17/16 00:41 Venous blood hemoglobin measurement (mass/volume) 11.1 g/dL 13.3-17.7 Blood hematocrit (volume fraction) 33 % 40-54 Complete blood count (CBC) with automated white blood cell (WBC) differential - 12/17/16 06:10 Blood leukocytes automated count (number/volume) 8.0 10*3/uL 4.3-11.0 Blood erythrocytes automated count (number/volume) 3.50 10*6/uL 4.35-5.85 Venous blood hemoglobin measurement (mass/volume) 10.9 g/dL 13.3-17.7 Blood hematocrit (volume fraction) 33 % 40-54 Automated erythrocyte mean corpuscular volume 93 [foz_us] 80-99 Automated erythrocyte mean corpuscular hemoglobin (mass per erythrocyte) 31 pg 25-34 Automated erythrocyte mean corpuscular hemoglobin concentration measurement ( mass/volume) 33 g/dL 32-36 Automated erythrocyte distribution width ratio 13.0 % 10.0-14.5 Automated blood platelet count (count/volume) 195 10*3/uL 130-400 Automated blood platelet mean volume measurement 10.1 [foz_us] 7.4-10.4 Automated blood neutrophils/100 leukocytes 69 % 42-75 Automated blood lymphocytes/100 leukocytes 19 % 12-44 Blood monocytes/100 leukocytes 12 % 0-12 Automated blood eosinophils/100 leukocytes 0 % 0-10 Automated blood basophils/100 leukocytes 0 % 0-10 Blood neutrophils automated count (number/volume) 5.5 10*3 1.8-7.8 Blood lymphocytes automated count (number/volume) 1.5 10*3 1.0-4.0 Blood monocytes automated count (number/volume) 0.9 10*3 0.0-1.0 Automated eosinophil count 0.0 10*3/uL 0.0-0.3 Automated blood basophil count (count/volume) 0.0 10*3/uL 0.0-0.1 Blood lactic acid measurement (moles/volume) - 12/17/16 06:10 Blood lactic acid measurement (moles/volume) 0.5 mmol/L 0.5-2.0 Comprehensive metabolic panel - 12/17/16 06:10 Serum or plasma sodium measurement (moles/volume) 139 mmol/L 135-145 Serum or plasma potassium measurement (moles/volume) 4.1 mmol/L 3.6-5.0 Serum or plasma chloride measurement (moles/volume) 113 mmol/L 98-107 Carbon dioxide 21 mmol/L 21-32 Serum or plasma anion gap determination (moles/volume) 5 mmol/L 5-14 Serum or plasma urea nitrogen measurement (mass/volume) 33 mg/dL 7-18 Serum or plasma creatinine measurement (mass/volume) 0.89 mg/dL 0.60-1.30 Serum or plasma urea nitrogen/creatinine mass ratio 37 NRG Serum or plasma creatinine measurement with calculation of estimated glomerular filtration rate > NRG Serum or plasma glucose measurement (mass/volume) 88 mg/dL 70-105 Serum or plasma calcium measurement (mass/volume) 8.3 mg/dL 8.5-10.1 Serum or plasma total bilirubin measurement (mass/volume) 0.4 mg/dL 0.1-1.0 Serum or plasma alkaline phosphatase measurement (enzymatic activity/volume) 59 U/L 40-136 Serum or plasma aspartate aminotransferase measurement (enzymatic activity/ volume) 15 U/L 5-34 Serum or plasma alanine aminotransferase measurement (enzymatic activity/volume ) 10 U/L 0-55 Serum or plasma protein measurement (mass/volume) 5.8 g/dL 6.4-8.2 Serum or plasma albumin measurement (mass/volume) 3.3 g/dL 3.2-4.5 Whole blood hemoglobin and hematocrit panel - 12/17/16 08:45 Venous blood hemoglobin measurement (mass/volume) 10.7 g/dL 13.3-17.7 Blood hematocrit (volume fraction) 32 % 40-54 Whole blood hemoglobin and hematocrit panel - 12/17/16 12:30 Venous blood hemoglobin measurement (mass/volume) 10.9 g/dL 13.3-17.7 Blood hematocrit (volume fraction) 33 % 40-54 Whole blood hemoglobin and hematocrit panel - 12/17/16 16:10 Venous blood hemoglobin measurement (mass/volume) 10.5 g/dL 13.3-17.7 Blood hematocrit (volume fraction) 32 % 40-54 Complete blood count (CBC) with automated white blood cell (WBC) differential - 12/18/16 04:17 Blood leukocytes automated count (number/volume) 6.1 10*3/uL 4.3-11.0 Blood erythrocytes automated count (number/volume) 3.39 10*6/uL 4.35-5.85 Venous blood hemoglobin measurement (mass/volume) 10.5 g/dL 13.3-17.7 Blood hematocrit (volume fraction) 32 % 40-54 Automated erythrocyte mean corpuscular volume 94 [foz_us] 80-99 Automated erythrocyte mean corpuscular hemoglobin (mass per erythrocyte) 31 pg 25-34 Automated erythrocyte mean corpuscular hemoglobin concentration measurement ( mass/volume) 33 g/dL 32-36 Automated erythrocyte distribution width ratio 13.0 % 10.0-14.5 Automated blood platelet count (count/volume) 171 10*3/uL 130-400 Automated blood platelet mean volume measurement 10.0 [foz_us] 7.4-10.4 Automated blood neutrophils/100 leukocytes 54 % 42-75 Automated blood lymphocytes/100 leukocytes 32 % 12-44 Blood monocytes/100 leukocytes 11 % 0-12 Automated blood eosinophils/100 leukocytes 3 % 0-10 Automated blood basophils/100 leukocytes 0 % 0-10 Blood neutrophils automated count (number/volume) 3.3 10*3 1.8-7.8 Blood lymphocytes automated count (number/volume) 1.9 10*3 1.0-4.0 Blood monocytes automated count (number/volume) 0.7 10*3 0.0-1.0 Automated eosinophil count 0.2 10*3/uL 0.0-0.3 Automated blood basophil count (count/volume) 0.0 10*3/uL 0.0-0.1 Comprehensive metabolic panel - 12/18/16 04:17 Serum or plasma sodium measurement (moles/volume) 140 mmol/L 135-145 Serum or plasma potassium measurement (moles/volume) 4.0 mmol/L 3.6-5.0 Serum or plasma chloride measurement (moles/volume) 111 mmol/L 98-107 Carbon dioxide 21 mmol/L 21-32 Serum or plasma anion gap determination (moles/volume) 8 mmol/L 5-14 Serum or plasma urea nitrogen measurement (mass/volume) 18 mg/dL 7-18 Serum or plasma creatinine measurement (mass/volume) 0.85 mg/dL 0.60-1.30 Serum or plasma urea nitrogen/creatinine mass ratio 21 NRG Serum or plasma creatinine measurement with calculation of estimated glomerular filtration rate > NRG Serum or plasma glucose measurement (mass/volume) 78 mg/dL 70-105 Serum or plasma calcium measurement (mass/volume) 8.3 mg/dL 8.5-10.1 Serum or plasma total bilirubin measurement (mass/volume) 0.3 mg/dL 0.1-1.0 Serum or plasma alkaline phosphatase measurement (enzymatic activity/volume) 63 U/L 40-136 Serum or plasma aspartate aminotransferase measurement (enzymatic activity/ volume) 22 U/L 5-34 Serum or plasma alanine aminotransferase measurement (enzymatic activity/volume ) 12 U/L 0-55 Serum or plasma protein measurement (mass/volume) 5.9 g/dL 6.4-8.2 Serum or plasma albumin measurement (mass/volume) 3.3 g/dL 3.2-4.5 Encounters ACCT No. Visit Date/Time Discharge Status Pt. Type Provider Facility Loc./Unit Complaint [id number] 05/20/2017 11:43:00 05/20/2017 23:59:59 CLS Outpatient JUSTIN DUNBAR DO [facility] RAD TRAUMA TO LFT FOOT [id number] 12/16/2016 16:14:00 12/19/2016 12:45:00 DIS Inpatient JUSTIN DUNBAR DO [facility] 4TH PNEUMONIA RLL, VOMITING [id number] 02/26/2014 09:00:00 02/26/2014 23:59:59 CLS Outpatient GITA LEMUS, BERNARD German [facility] NUTRITION RESS [id number] 02/16/2014 08:09:00 02/16/2014 23:59:59 CLS Outpatient GITA LEMUS, BERNARD German [facility] PREOP RESOLVE NUTRITION [id number] 09/12/2013 08:57:00 09/12/2013 23:59:59 CLS Outpatient [id number] 08/08/2013 11:36:00 08/30/2013 15:55:00 DIS Inpatient JUSTIN DUNBAR DO [facility] 4TH SEPTIC SHOCK,RT LUNG PNA, UTI
[2017-12-20 14:35] LABS: ALBUMIN 4.2 GM/DL (3.2-4.5); BILIRUBIN,TOTAL 0.6 MG/DL (0.1-1.0); CALCIUM 9.6 MG/DL (8.5-10.1); CREATININE SERUM 2.02 MG/DL (0.60-1.30); TOTAL PROTEIN 8.3 GM/DL (6.4-8.2)
--- NOTE | 2017-12-20 14:58 | ED GI ---
General Chief Complaint: Abdominal/GI Problems Stated Complaint: POSS SBO-THROWING UP BLACK FOUL STUFF Nursing Triage Note: pt presents to ed for vomiting x 2 days and abdominal pain. [facility] staff reports pt vomit has a foul odor and is brown in color. reports pt had diahrrea yesterday. Sepsis Screen: No Definite Risk Source of Information: Patient, Caregiver Exam Limitations: Physical Impairments (mentally challenged) History of Present Illness Date Seen by Provider: Dec 20, 2017 Time Seen by Provider: 14:20 Initial Comments 62-year-old male patient presents to the emergency Department with reports of vomiting for 2 days and generalized abdominal pain. [facility] staff reports patient has been vomiting coffee-ground emesis with foul odor. Patient does have a history of similar symptoms one year ago and was found to have esophagitis and gastritis/ulcers. Staff reports patient having diarrhea yesterday. Timing/Duration: 1-2 Days, Constant Location: Generalized Abdomen Modifying Factors: Worsens With Eating, Worsens With Palpation Allergies and Home Medications Allergies Coded Allergies: No Known Drug Allergies (Unverified , 08/08/13) Home Medications Acetaminophen 325 Mg Tablet, 650 MG PO Q6H PRN for PAIN/TEMP, (Reported) TAKES 2 (325MG) TABLETS Carbamide Peroxide 15 Ml Drops, 10 DROPS EACH EAR UD for 7 Days, (Reported) Cefdinir 300 Mg Capsule, 300 MG PO BID, #14 Prescribed by: JOAQUIN MALIK on 12/19/16 1037 Doxycycline Hyclate 100 Mg Capsule, 100 MG PO BID, #14 Prescribed by: JOAQUIN MALIK on 12/19/16 1037 Multivitamin 1 Each Tablet, 1 TAB PO DAILY, (Reported) Olanzapine 10 Mg Tab, 10 MG PO HS, (Reported) Pantoprazole Sodium 40 Mg Tablet.dr, 40 MG PO DAILY, #90 Ref 5 Prescribed by: MEIR MAJOR on 12/18/16 1006 Polyethylene Glycol 3350 17 Gm Powd.pack, 17 GM PO DAILY, (Reported) Sucralfate 1 Gm Tablet, 1 GM PO QID, #120 Ref 3 TAKE 1 TAB 4 TIMES DAILY FOR 2 WEEKS THEN NEEDED FOR HEARTBURN TYPE SYMPTOMS Prescribed by: MEIR MAJOR on 12/18/16 1006 Review of Systems Constitutional: No chills, No fever, No malaise Respiratory: Denies Cough, Denies Shortness of Air Cardiovascular: Denies Chest Pain Gastrointestinal: See HPI, Abdomen Distended, Abdominal Pain, Denies Blood Streaked Stools, Denies Constipated, Diarrhea, Poor Appetite, Poor Fluid Intake , Denies Rectal Bleeding, Vomiting Genitourinary: No Symptoms Reported Skin: no symptoms reported Psychiatric/Neurological: No Symptoms Reported, Pre-Existing Deficit (mentally challenged) All Other Systems Reviewed Negative Unless Noted: Yes (Negative excepted noted.) Past Bqajqwj-Ofolxr-Pisceo Hx Patient Social History Alcohol Use: Denies Use Recreational Drug Use: No Smoking Status: Never a Smoker Recent Foreign Travel: No Contact w/Someone Who Travel: No Recent Infectious Disease Expo: No Recent Hopitalizations: No Physical Abuse: No Sexual Abuse: No Mistreated: No Fear: No Immunizations Up To Date Tetanus Booster (TDap): Unknown Date of Pneumonia Vaccine: Aug 29, 2009 Date of Influenza Vaccine: Sep 29, 2016 Seasonal Allergies Seasonal Allergies: No Surgeries History of Surgeries: No (PEG TUBE,) Respiratory History of Respiratory Disorde: No Currently Using CPAP: No Currently Using BIPAP: No Cardiovascular History of Cardiac Disorders: No Neurological History of Neurological Disord: Yes (MR) Neurological Disorders: Seizure Disorder Reproductive System Sexually Transmitted Disease: No HIV/AIDS: No Genitourinary History of Genitourinary Disor: No Gastrointestinal History of Gastrointestinal Di: Yes Gastrointestinal Disorders: Gastroesophageal Reflux, Gastrointestinal Bleed, Chronic Constipation, Esophagitis, Ulcer Musculoskeletal History of Musculoskeletal Dis: Yes (foot deforminties) Endocrine History of Endocrine Disorders: No HEENT History of HEENT Disorders: No Loss of Vision: Denies Cancer History of Cancer: No Psychosocial History of Psychiatric Problem: Yes Behavioral Health Disorders: Anxiety Suicide Risk Score: 0 Integumentary History of Skin or Integumenta: No Blood Transfusions History of Blood Disorders: No Reviewed Nursing Assessment Reviewed/Agree w Nursing PMH: Yes Family Medical History Significant Family History: No Pertinent Family Hx Family Medial History: Patient reports no known family medical history. Physical Exam Vital Signs VS - Last 72 Hours, by Label 12/20/17 14:00 Temp 97.4 Pulse 114 Resp 18 B/P (MAP) 107/82 (90) Pulse Ox 92 Capillary Refill : Less Than 3 Seconds General Appearance: WD/WN, no apparent distress HEENT: PERRL/EOMI, pharynx normal, other (oral mucosa and lips dry) Neck: supple, normal inspection Respiratory: lungs clear, normal breath sounds, no respiratory distress, no accessory muscle use Cardiovascular: normal peripheral pulses, regular rate, rhythm, no murmur Gastrointestinal: normal bowel sounds, no organomegaly, distended (abdominal exam difficult due to patient being mentally challenged. patient keeps head elevated off the bed and abdominal muscles tensed.), guarding (generalized guarding), No rebound, tenderness (generalized tenderness) Extremities: no pedal edema, normal capillary refill Neurologic/Psychiatric: alert, normal mood/affect, oriented x 3 Skin: normal color, warm/dry Progress/Results/Core Measures Results/Orders Lab Results Laboratory Tests Test 12/20/17 13:59 Range/Units White Blood Count 7.4 4.3-11.0 10^3/uL Red Blood Count 4.89 4.35-5.85 10^6/uL Hemoglobin 14.9 13.3-17.7 G/DL Hematocrit 43 40-54 % Mean Corpuscular Volume 88 80-99 FL Mean Corpuscular Hemoglobin 31 25-34 PG Mean Corpuscular Hemoglobin Concent 35 32-36 G/DL Red Cell Distribution Width 14.8 H 10.0-14.5 % Platelet Count 246 130-400 10^3/uL Mean Platelet Volume 11.0 H 7.4-10.4 FL Neutrophils (%) (Auto) 74 42-75 % Lymphocytes (%) (Auto) 14 12-44 % Monocytes (%) (Auto) 12 0-12 % Eosinophils (%) (Auto) 0 0-10 % Basophils (%) (Auto) 0 0-10 % Neutrophils # (Auto) 5.5 1.8-7.8 X 10^3 Lymphocytes # (Auto) 1.0 1.0-4.0 X 10^3 Monocytes # (Auto) 0.9 0.0-1.0 X 10^3 Eosinophils # (Auto) 0.0 0.0-0.3 10^3/uL Basophils # (Auto) 0.0 0.0-0.1 10^3/uL Sodium Level 142 135-145 MMOL/L Potassium Level 4.0 3.6-5.0 MMOL/L Chloride Level 105 98-107 MMOL/L Carbon Dioxide Level 20 L 21-32 MMOL/L Anion Gap 17 H 5-14 MMOL/L Blood Urea Nitrogen 55 H 7-18 MG/DL Creatinine 2.02 H 0.60-1.30 MG/DL Estimat Glomerular Filtration Rate 34 BUN/Creatinine Ratio 27 Glucose Level 132 H 70-105 MG/DL Calcium Level 9.6 8.5-10.1 MG/DL Total Bilirubin 0.6 0.1-1.0 MG/DL Aspartate Amino Transf (AST/SGOT) 32 5-34 U/L Alanine Aminotransferase (ALT/SGPT) 18 0-55 U/L Alkaline Phosphatase 88 40-136 U/L Total Protein 8.3 H 6.4-8.2 GM/DL Albumin 4.2 3.2-4.5 GM/DL Lipase 9 8-78 U/L My Orders Orders - BARBARA SO Ct Abdomen/Pelvis Wo (12/20/17 14:36) Vital Signs/I&O Vital Sign - Last 12Hours 12/20/17 14:00 Temp 97.4 Pulse 114 Resp 18 B/P (MAP) 107/82 (90) Pulse Ox 92 Blood Pressure Mean: 90 Diagnostic Imaging Diagonstic Imaging: CT Plain Films/CT/US/NM/MRI: abdomen, pelvis Comments CT ABDOMEN/PELVIS WO PROCEDURE: CT abdomen and pelvis without contrast. TECHNIQUE: Multiple contiguous axial images were obtained through the abdomen and pelvis without the use of intravenous contrast. INDICATION: Vomiting for two days and abdominal pain. COMPARISON: Comparison is made with prior CT from 08/08/2013. FINDINGS: There is some fluid-filled distention of the distal esophagus, similar to prior exam. There is also moderate fluid-filled distention of the stomach. There are numerous dilated and fluid-filled small bowel loops in the central and left abdomen, as well as the pelvis. There do appear to be normal caliber small bowel loops in the right abdomen. Findings are consistent with a small bowel obstruction. No definite pneumatosis or portal venous gas is identified. There is no free fluid or fluid collection. No free air is identified. The liver is unremarkable. There are multiple stones within the gallbladder. The pancreas and spleen are unremarkable. No adrenal mass is detected. Kidneys are unremarkable. The aorta is nonaneurysmal. The bladder is unremarkable. The prostate is enlarged. IMPRESSION: 1. There is moderate fluid-filled distention to the stomach and small bowel loops with transition zone in the mid to distal small bowel loops. Features are consistent with small bowel obstruction, etiology indeterminate. No free air or abscess formation is detected. 2. Cholelithiasis. Dictated on workstation # [id number] Reviewed: Reviewed by Me (radiology report reviewed by me) Departure Impression Impression: Primary Impression: Small bowel obstruction Departure-Patient Inst. Referrals: JUSTIN DUNBAR DO (PCP/Family) Primary Care Physician BARBARA SO Dec 20, 2017 14:58
--- NOTE | 2017-12-20 15:38 | Diagnostic Imaging Report ---
PROCEDURE: CT abdomen and pelvis without contrast. TECHNIQUE: Multiple contiguous axial images were obtained through the abdomen and pelvis without the use of intravenous contrast. INDICATION: Vomiting for two days and abdominal pain. COMPARISON: Comparison is made with prior CT from 08/08/2013. FINDINGS: There is some fluid-filled distention of the distal esophagus, similar to prior exam. There is also moderate fluid-filled distention of the stomach. There are numerous dilated and fluid-filled small bowel loops in the central and left abdomen, as well as the pelvis. There do appear to be normal caliber small bowel loops in the right abdomen. Findings are consistent with a small bowel obstruction. No definite pneumatosis or portal venous gas is identified. There is no free fluid or fluid collection. No free air is identified. The liver is unremarkable. There are multiple stones within the gallbladder. The pancreas and spleen are unremarkable. No adrenal mass is detected. Kidneys are unremarkable. The aorta is nonaneurysmal. The bladder is unremarkable. The prostate is enlarged. IMPRESSION: 1. There is moderate fluid-filled distention to the stomach and small bowel loops with transition zone in the mid to distal small bowel loops. Features are consistent with small bowel obstruction, etiology indeterminate. No free air or abscess formation is detected. 2. Cholelithiasis. Dictated by: Dictated on workstation # [id number]
--- OUTSIDE RECORDS SUMMARY | 2017-12-20 18:01 | XMS REPORT | Continuity of Care Document ---
Author Author [facility] Organization [facility] Address Unknown Phone Unavailable Allergies Active Description Code Type Severity Reaction Onset Reported/Identified Relationship to Patient Clinical Status Yes No Known Drug Allergies [id number] Drug Allergy Unknown N/A 08/08/2013 Medications There [...] EFF ANTIBIOTIC NOS 12/16/2016 GITA LEMUS, BERNARD German Ot V72.84 EXAM PRE-OPERATIVE NOS 12/16/2016 GITA [...] PHALANX OF LEFT GREA 06/10/2017 GELLENDER DO, JUSTIN Iglesias Ot X58.XXXA EXPOSURE [...] On 43.11 PERCUTANEOUS [ENDOSCOPIC] GASTROSTOMY [P 08/24/2013 [id number] EXCISION OF ESOPHAGAST JUNCT, PERC ENDO 12/17/2016 [id number] EXCISION OF STOMACH, PERCUTANEOUS APPROA 12/17/2016 Results [...] OF GROWTH Isolated NRG Bacterial blood culture [id number] NRG Bacterial blood culture - 12/16/16 15:04 QUANTITY OF GROWTH Isolated NRG Bacterial blood culture [id number] Serum or plasma lactate measurement (moles/volume) [...] plasma albumin measurement (mass/volume) 3.3 g/dL 3.2-4.5 Complete blood count (CBC) with automated white blood cell (WBC) differential - 12/20/17 13:59 Blood leukocytes automated count (number/volume) 7.4 10*3/uL 4.3-11.0 Blood erythrocytes automated count (number/volume) 4.89 10*6/uL 4.35-5.85 Venous blood hemoglobin measurement (mass/volume) 14.9 g/dL 13.3-17.7 Blood hematocrit (volume fraction) 43 % 40-54 Automated erythrocyte mean corpuscular volume 88 [foz_us] 80-99 Automated erythrocyte mean corpuscular hemoglobin (mass per erythrocyte) 31 pg 25-34 Automated erythrocyte mean corpuscular hemoglobin concentration measurement ( mass/volume) 35 g/dL 32-36 Automated erythrocyte distribution width ratio 14.8 % 10.0-14.5 Automated blood platelet count (count/volume) 246 10*3/uL 130-400 Automated blood platelet mean volume measurement 11.0 [foz_us] 7.4-10.4 Automated blood neutrophils/100 leukocytes 74 % 42-75 Automated blood lymphocytes/100 leukocytes 14 % 12-44 Blood monocytes/100 leukocytes 12 % 0-12 Automated blood eosinophils/100 leukocytes 0 % 0-10 Automated blood basophils/100 leukocytes 0 % 0-10 Blood neutrophils automated count (number/volume) 5.5 10*3 1.8-7.8 Blood lymphocytes automated count (number/volume) 1.0 10*3 1.0-4.0 Blood monocytes automated count (number/volume) 0.9 10*3 0.0-1.0 Automated eosinophil count 0.0 10*3/uL 0.0-0.3 Automated blood basophil count (count/volume) 0.0 10*3/uL 0.0-0.1 Comprehensive metabolic panel - 12/20/17 13:59 Serum or plasma sodium measurement (moles/volume) 142 mmol/L 135-145 Serum or plasma potassium measurement (moles/volume) 4.0 mmol/L 3.6-5.0 Serum or plasma chloride measurement (moles/volume) 105 mmol/L 98-107 Carbon dioxide 20 mmol/L 21-32 Serum or plasma anion gap determination (moles/volume) 17 mmol/L 5-14 Serum or plasma urea nitrogen measurement (mass/volume) 55 mg/dL 7-18 Serum or plasma creatinine measurement (mass/volume) 2.02 mg/dL 0.60-1.30 Serum or plasma urea nitrogen/creatinine mass ratio 27 NRG Serum or plasma creatinine measurement with calculation of estimated glomerular filtration rate 34 NRG Serum or plasma glucose measurement (mass/volume) 132 mg/dL 70-105 Serum or plasma calcium measurement (mass/volume) 9.6 mg/dL 8.5-10.1 Serum or plasma total bilirubin measurement (mass/volume) 0.6 mg/dL 0.1-1.0 Serum or plasma alkaline phosphatase measurement (enzymatic activity/volume) 88 U/L 40-136 Serum or plasma aspartate aminotransferase measurement (enzymatic activity/ volume) 32 U/L 5-34 Serum or plasma alanine aminotransferase measurement (enzymatic activity/volume ) 18 U/L 0-55 Serum or plasma protein measurement (mass/volume) 8.3 g/dL 6.4-8.2 Serum or plasma albumin measurement (mass/volume) 4.2 g/dL 3.2-4.5 Lipase - 12/20/17 13:59 Lipase 9 U/L 8-78 Encounters ACCT No. Visit Date/Time Discharge Status Pt. Type Provider Facility Loc./Unit Complaint [id number] 05/20/2017 11:43:00 05/20/2017 23:59:59 CLS Outpatient JUSTIN DUNBAR DO [facility] RAD TRAUMA TO LFT FOOT [id number] 12/16/2016 16:14:00 12/19/2016 12:45:00 DIS Inpatient JUSTIN DUNBAR DO [facility] 4TH PNEUMONIA RLL, VOMITING [id number] 02/26/2014 09:00:00 02/26/2014 23:59:59 CLS Outpatient BERNARD PELAYO MD [facility] NUTRITION RESS [id number] 02/16/2014 08:09:00 02/16/2014 23:59:59 CLS Outpatient BERNARD PELAYO MD [facility] PREOP RESOLVE NUTRITION [id number] 09/12/2013 08:57:00 09/12/2013 23:59:59 CLS Outpatient [id number] 08/08/2013 11:36:00 08/30/2013 15:55:00 DIS Inpatient JUSTIN DUNBAR DO [facility] 4TH SEPTIC SHOCK,RT LUNG PNA, UTI [id number] 12/20/2017 14:17:00 Document Registration
[2017-12-20] MEDS: NS IV 1000 ML 1,000 ML IV SCH ×2 (18:12→23:52)
[2017-12-20] MEDS ORDERED: CATHETER FLUSH 10 ML SYR IV PRN (18:15)
[2017-12-20] MEDS ORDERED: ONDANSETRON 4 MG/2 ML (SDV) Z0FRAN IV PRN (18:15)
[2017-12-20] MEDS ORDERED: fentaNYL INJECTION 100 MCG/2 ML AMP IV PRN (18:15)
[2017-12-20] MEDS ORDERED: PROMETHAZINE INJ 25 MG/ML (PHENERGAN) AMP IV PRN (18:15)
[2017-12-20] MEDS: PANTOPRAZOLE 40 MG/10 ML (PROTONIX) VIAL IV SCH (18:17)
--- NOTE | 2017-12-20 18:40 | History & Physicial ---
History of Present Illness History of Present Illness Reason for visit/HPI patient severe MR. Patient had a home. Patient had vomiting for the last few days. Yesterday diarrhea or. Patient had abdominal pain. Patient came out to the emergency room. CAT scan shows small bowel obstruction. Patient admitted Patient unable to give any history Date of Admission Dec 20, 2017 at 16:50 Time Seen by Provider: 06:37 I consulted on this patient on 12/20/17 18:35 Attending Physician Ben Dunbar DO Admitting Physician Ben Dunbar DO Consult Allergies and Home Medications Allergies Coded Allergies: No Known Drug Allergies (Unverified , 08/08/13) Home Medications Acetaminophen 325 Mg Tablet, 650 MG PO Q6H PRN for PAIN/TEMP, (Reported) TAKES 2 (325MG) TABLETS Carbamide Peroxide 15 Ml Drops, 10 DROPS EACH EAR UD for 7 Days, (Reported) Cefdinir 300 Mg Capsule, 300 MG PO BID, #14 Prescribed by: JOAQUIN MALIK on 12/19/16 1037 Doxycycline Hyclate 100 Mg Capsule, 100 MG PO BID, #14 Prescribed by: JOAQUIN MALIK on 12/19/16 1037 Multivitamin 1 Each Tablet, 1 TAB PO DAILY, (Reported) Olanzapine 10 Mg Tab, 10 MG PO HS, (Reported) Pantoprazole Sodium 40 Mg Tablet.dr, 40 MG PO DAILY, #90 Ref 5 Prescribed by: MEIR MAJOR on 12/18/16 1006 Polyethylene Glycol 3350 17 Gm Powd.pack, 17 GM PO DAILY, (Reported) Sucralfate 1 Gm Tablet, 1 GM PO QID, #120 Ref 3 TAKE 1 TAB 4 TIMES DAILY FOR 2 WEEKS THEN NEEDED FOR HEARTBURN TYPE SYMPTOMS Prescribed by: MEIR MAJOR on 12/18/16 1006 Past Cemtwsg-Dgfncq-Iqbzik Hx Patient Social History Marrital Status: single Employed/Student: unemployed Alcohol Use: Denies Use Recreational Drug Use: No Smoking Status: Never a Smoker Recent Foreign Travel: No Contact w/other who traveled: No Recent Hopitalizations: No Recent Infectious Disease Expo: No Immunizations Up To Date Tetanus Booster (TDap): Unknown Date of Pneumonia Vaccine: Aug 29, 2009 Date of Influenza Vaccine: Sep 29, 2016 Seasonal Allergies Seasonal Allergies: No Surgeries No (PEG TUBE,) Respiratory No Currently Using CPAP: No Currently Using BIPAP: No Cardiovascular No Neurological Yes (MR) Seizure Disorder Reproductive System Sexually Transmitted Disease: No HIV/AIDS: No Genitourinary No Gastrointestinal Yes Gastroesophageal Reflux, Gastrointestinal Bleed, Chronic Constipation, Esophagitis, Ulcer Musculoskeletal Yes (foot deforminties) Endocrine History of Endocrine Disorders: No HEENT History of HEENT Disorders: No Loss of Vision: Denies Cancer No Psychosocial History of Psychiatric Problem: Yes Behavioral Health Disorders: Anxiety Integumentary History of Skin or Integumenta: No Blood Transfusions History of Blood Disorders: No Reviewed Nursing Assessment Reviewed/Agree w Nursing PMH: Yes Family Medical History Significant Family History: No Pertinent Family Hx Family Hx: Patient reports no known family medical history. Constitutional: weakness EENTM: no symptoms reported Respiratory: no symptoms reported Cardiovascular: no symptoms reported Gastrointestinal: diarrhea, vomiting Genitourinary: no symptoms reported Physical Exam Vital Signs Vital Sign - Last 12Hours 12/20/17 14:00 Temp 97.4 Pulse 114 Resp 18 B/P (MAP) 107/82 (90) Pulse Ox 92 Capillary Refill : Less Than 3 Seconds General Appearance: No Apparent Distress, Thin Eyes: Bilateral Eye Normal Inspection HEENT: Normal ENT Inspection Neck: Normal Inspection Respiratory: Lungs Clear, No Accessory Muscle Use, No Respiratory Distress Cardiovascular: Regular Rate, Rhythm, No Murmur Gastrointestinal: Non Tender, Soft Assessment/Plan Assessment and Plan small bowel obstruction. Severe MR. Vomiting Problems: BEN DUNBAR DO Dec 20, 2017 18:40
[2017-12-20 18:50] VITALS: BP 99/61
[2017-12-20] MEDS ORDERED: INFLUENZA TRIvalent 2017-2018 0.5 ML/45 MCG SYR IM ONE (19:15)
[2017-12-20] MEDS ORDERED: PANTOPRAZOLE 40 MG/10 ML (PROTONIX) VIAL IV SCH (21:00)
[2017-12-21] VITALS: BP 96/54
[2017-12-21 00:20] LABS: BILIRUBIN,URINE NEGATIVE (NEGATIVE); CLARITY,URINE CLEAR; COLOR,URINE YELLOW; GLUCOSE, URINE (UA) NEGATIVE (NEGATIVE); KETONES,URINE 1+ (NEGATIVE); LEUKOCYTE ESTERASE ,URINE 1+ (NEGATIVE); NITRITE,URINE NEGATIVE (NEGATIVE); PH,URINE 5 (5-9); PROTEIN,URINE 1+ (NEGATIVE); UROBILINOGEN,URINE NORMAL (NORMAL)
[2017-12-21 00:26] LABS: BACTERIA,URINE NEGATIVE /HPF; RBC,URINE RARE /HPF; SQUAMOUS EPITHELIAL CELL,UR RARE /HPF; WBC,URINE RARE /HPF
[2017-12-21] MEDS: NS IV 1000 ML 1,000 ML IV SCH ×4 (03:52→14:17)
[2017-12-21 04:20] VITALS: BP 112/61
[2017-12-21 08:00] VITALS: BP 118/65
--- NOTE | 2017-12-21 08:13 | Progress Note (SOAP) ---
Subjective Time Seen by Provider: 08:10 Subjective/Events-last exam small bowel obstruction. Severe MR. Patient alert today. Abdomen soft. No blood tests or x-rays on chart yet Objective Exam Vital Signs Date Time Temp Pulse Resp B/P (MAP) Pulse Ox O2 Delivery O2 Flow Rate FiO2 12/21/17 04:20 96.7 77 19 112/61 (78) 98 Room Air 12/21/17 00:00 97.8 84 19 96/54 (68) 94 Room Air 12/20/17 18:50 98.7 96 20 99/61 (74) 98 Room Air 12/20/17 17:44 97.4 97 18 96 12/20/17 14:00 97.4 114 18 107/82 (90) 92 I & O 12/21/17 07:00 Intake Total 1000 ml Output Total 575 ml Balance 425 ml Capillary Refill : Less Than 3 Seconds General Appearance: No Apparent Distress, Thin HEENT: Normal ENT Inspection Neck: Normal Inspection Respiratory: Lungs Clear Cardiovascular: Regular Rate, Rhythm Gastrointestinal: non tender, soft Results Lab Laboratory Tests 12/20/17 13:59 Laboratory Tests 12/20/17 13:59: White Blood Count 7.4, Red Blood Count 4.89, Hemoglobin 14.9, Hematocrit 43, Mean Corpuscular Volume 88, Mean Corpuscular Hemoglobin 31, Mean Corpuscular Hemoglobin Concent 35, Red Cell Distribution Width 14.8H, Platelet Count 246, Mean Platelet Volume 11.0H, Neutrophils (%) (Auto) 74, Lymphocytes (%) (Auto) 14 , Monocytes (%) (Auto) 12, Eosinophils (%) (Auto) 0, Basophils (%) (Auto) 0, Neutrophils # (Auto) 5.5, Lymphocytes # (Auto) 1.0, Monocytes # (Auto) 0.9, Eosinophils # (Auto) 0.0, Basophils # (Auto) 0.0, Sodium Level 142, Potassium Level 4.0, Chloride Level 105, Carbon Dioxide Level 20L, Anion Gap 17H, Blood Urea Nitrogen 55H, Creatinine 2.02H, Estimat Glomerular Filtration Rate 34, BUN/ Creatinine Ratio 27, Glucose Level 132H, Calcium Level 9.6, Total Bilirubin 0.6 , Aspartate Amino Transf (AST/SGOT) 32, Alanine Aminotransferase (ALT/SGPT) 18, Alkaline Phosphatase 88, Total Protein 8.3H, Albumin 4.2, Lipase 9 12/20/17 23:15: Urine Color YELLOW, Urine Clarity CLEAR, Urine pH 5, Urine Specific Ronks 1.025H, Urine Protein 1+H, Urine Glucose (UA) NEGATIVE, Urine Ketones 1+H, Urine Nitrite NEGATIVE, Urine Bilirubin NEGATIVE, Urine Urobilinogen NORMAL, Urine Leukocyte Esterase 1+H, Urine RBC (Auto) 2+H, Urine RBC RARE, Urine WBC RARE, Urine Squamous Epithelial Cells RARE, Urine Crystals NONE, Urine Bacteria NEGATIVE, Urine Casts PRESENT, Urine Hyaline Casts 2-5H, Urine Mucus NEGATIVE, Urine Culture Indicated NO 12/21/17 04:30: Assessment/Plan Assessment/Plan Assess & Plan/Chief Complaint . Small bowel obstruction. Severe mental retardation. Patient not in any pain today. Eating for lab and x-ray results Clinical Quality Measures DVT/VTE Risk/Contraindication: Risk Factor Score Per Nursin RFS Level Per Nursing on Admit: 4+=Very High Contraindications-Pharm: Other *list below* JUSTIN DUNBAR DO Dec 21, 2017 08:13
[2017-12-21 08:18] LABS: BASOPHILS % (AUTO) 0 % (0-10); EOSINOPHILS # (AUTO) 0.1 10^3/uL (0.0-0.3); EOSINOPHILS % (AUTO) 1 % (0-10); HEMATOCRIT 36 % (40-54); HEMOGLOBIN 12.3 G/DL (13.3-17.7); LYMPHOCYTES # (AUTO) 1.5 X 10^3 (1.0-4.0); LYMPHOCYTES % (AUTO) 28 % (12-44); MEAN CORPUSCULAR HEMOGLOBIN 30 PG (25-34); MEAN CORPUSCULAR HGB CONC 34 G/DL (32-36); MEAN CORPUSCULAR VOLUME 89 FL (80-99); MEAN PLATELET VOLUME 10.2 FL (7.4-10.4); MONOCYTES % (AUTO) 18 % (0-12); NEUTROPHILS # (AUTO) 2.9 X 10^3 (1.8-7.8); NEUTROPHILS % (AUTO) 52 % (42-75); PLATELET COUNT 158 10^3/uL (130-400); RED BLOOD COUNT 4.07 10^6/uL (4.35-5.85); RED CELL DISTRIBUTION WIDTH 14.9 % (10.0-14.5); WHITE BLOOD COUNT 5.5 10^3/uL (4.3-11.0)
--- NOTE | 2017-12-21 08:34 | Diagnostic Imaging Report ---
INDICATION: Acute renal failure and gastric ulcer. TIME OF EXAM: 7:27 AM FINDINGS: Rectal catheter is in place. There is moderate gaseous distention to the colon. Moderate stool in the right colon is also seen. No significant small bowel distention is seen. No bowel wall thickening is identified. There is no pneumatosis. IMPRESSION: Moderate gaseous distention to the colon, perhaps on the basis of ileus. Progress films could be obtained. Dictated by: Dictated on workstation # [id number]
[2017-12-21 08:35] LABS: ALANINE AMINOTRANSFERASE 22 U/L (0-55); ALBUMIN 3.4 GM/DL (3.2-4.5); ALKALINE PHOSPHATASE 70 U/L (40-136); BILIRUBIN,TOTAL 0.7 MG/DL (0.1-1.0); BUN/CREATININE RATIO 43; CALCIUM 8.4 MG/DL (8.5-10.1); CARBON DIOXIDE 19 MMOL/L (21-32); CHLORIDE 114 MMOL/L (98-107); CREATININE SERUM 1.09 MG/DL (0.60-1.30); GFR ESTIMATED > 60; GLUCOSE 80 MG/DL (70-105); POTASSIUM 3.7 MMOL/L (3.6-5.0); SODIUM 143 MMOL/L (135-145); TOTAL PROTEIN 6.5 GM/DL (6.4-8.2)
[2017-12-21] MEDS ORDERED: PSYL0.4C2 PO (08:54)
[2017-12-21] MEDS ORDERED: OLAN10TA19 PO (08:54)
[2017-12-21] MEDS ORDERED: PSYL0.5213 PO (08:54)
[2017-12-21] MEDS ORDERED: MULT-35 PO (08:54)
[2017-12-21] MEDS ORDERED: SUCR1TAB PO (08:54)
[2017-12-21] MEDS ORDERED: PANT40TA3 PO (08:54)
[2017-12-21] MEDS ORDERED: GUAI5SYR PO (09:02)
[2017-12-21] MEDS ORDERED: DIPH25CA79 PO (09:02)
[2017-12-21] MEDS ORDERED: CALC-233 PO (09:02)
[2017-12-21] MEDS ORDERED: HYDR28.33 TP (09:02)
[2017-12-21] MEDS ORDERED: MAGN400O7 PO (09:02)
[2017-12-21] MEDS ORDERED: MUPI22OI2 TOP (09:02)
[2017-12-21] MEDS ORDERED: NEOM28.33 TP (09:02)
[2017-12-21] MEDS ORDERED: LOPE-145 PO (09:02)
[2017-12-21] MEDS ORDERED: IBUP-30 PO (09:02)
[2017-12-21] MEDS ORDERED: EUCA1LOZ28 MM (09:02)
[2017-12-21] MEDS ORDERED: TETR15DR74 OU (09:02)
[2017-12-21 09:22] LABS: BAND NEUTROPHILS 3 %; BASOPHILS % (MANUAL) 1 %; ELLIPT/OVALOCYTES SLIGHT; EOSINOPHILS % (MANUAL) 0 %; LYMPHOCYTES % (MANUAL) 30 %; MONOCYTES % (MANUAL) 11 %; NEUTROPHILS % (MANUAL) 55 %
--- NOTE | 2017-12-21 10:08 | Consultation ---
History of Present Illness History of Present Illness Patient Consulted On(taylor/time) 12/21/17 10:04 Date Seen by Provider: Dec 20, 2017 Time Seen by Provider: 17:45 Reason for Visit: Abdominal pain and vomiting History of Present Illness this gentleman, who is a resident at a local [facility] due to decreased mental function, was found to have abdominal pain and vomiting, resulting in ER visit. Evaluation including a CT scan shows evidence of distal, small bowel obstruction with a symptomatic gallstones. Allergies and Home Medications Allergies Coded Allergies: No Known Drug Allergies (Unverified , 08/08/13) Home Medications Acetaminophen 325 Mg Tablet, 650 MG PO Q6H PRN for MILD PAIN/TEMP, (Reported) TAKES 2 (325MG) TABLETS Calcium Carbonate 200 Mg Tab.chew, 500 MG PO UD PRN for INDIGESTION, (Reported) MAX OF 10 500MG TABS IN 1 DAY Carbamide Peroxide 15 Ml Drops, 5 DROPS EACH EAR UD, (Reported) INSTILL 5 DROPS INTO BOTH EARS TWICE DAILY X 10 DAYS NOW AND PRIOR TO NEXT APPOINTMENT NEEDED Diphenhydramine HCl 25 Mg Capsule, 25 MG PO Q6H PRN for ALLERGY SYMPTOMS, ( Reported) Diphenhydramine HCl 25 Mg Capsule, 50 MG PO Q6H PRN for ALLERGIC REACTIONS, ( Reported) Eucalyptus/Menthol 1 Each Lozenge, 1 LOZENGE MM Q1H PRN for COUGH, (Reported) MAX 8 DROPS PER DAY Guaifenesin/Dextromethorphan 5 Ml Syrup, 10 ML PO Q4H PRN for COUGH, (Reported) Hydrocortisone 28.35 Gm Oint...g., TP TID PRN for RASH, (Reported) 1% CREAM Ibuprofen 200 Mg Tablet, 400 MG PO Q6H PRN for PAIN-MILD, (Reported) Loperamide HCl 2 Mg Capsule, 2 MG PO UD PRN for DIARRHEA, (Reported) Magnesium Hydroxide 400 Mg/5 Ml Oral.susp, 30 ML PO BID PRN for CONSTIPATION- 7TH LINE, (Reported) Multivitamin 1 Each Tablet, 1 TAB PO DAILY, (Reported) Mupirocin 22 Gm Oint...g., TOP BID, (Reported) APPLY TOPICALLY TO GREAT TOE ON THE LEFT FOOT Neomycin Epperson/Bacitrac Zn/Poly 28.3 Gm Oint...g., TP BID PRN for CUTS/ABRASIONS, ( Reported) Olanzapine 10 Mg Tablet, 10 MG PO HS, (Reported) Pantoprazole Sodium 40 Mg Tablet.dr, 40 MG PO DAILY, (Reported) Polyethylene Glycol 3350 17 Gm Powd.pack, 17 GM PO DAILY, (Reported) Psyllium Husk 0.52 Gm Capsule, 0.52 GM PO DAILY, (Reported) Sucralfate 1 Gm Tablet, 1 GM PO ACHS, (Reported) Tetrahydrozoline HCl 15 Ml Drops, 2 DROPS OU QID PRN for REDNESS/IRRITATION, ( Reported) Past Xpzcjys-Psnvck-Sdrdqb Hx Patient Social History Alcohol Use: Denies Use Recreational Drug Use: No Smoking Status: Never a Smoker Recent Foreign Travel: No Contact w/Someone Who Travel: No Recent Infectious Disease Expo: No Recent Hopitalizations: No Physical Abuse: No Sexual Abuse: No Mistreated: No Fear: No Immunizations Up To Date Tetanus Booster (TDap): Unknown Date of Pneumonia Vaccine: Aug 29, 2009 Date of Influenza Vaccine: Sep 29, 2017 Seasonal Allergies Seasonal Allergies: No Surgeries History of Surgeries: Yes Respiratory History of Respiratory Disorde: No Currently Using CPAP: No Currently Using BIPAP: No Cardiovascular History of Cardiac Disorders: No Neurological History of Neurological Disord: Yes (MR) Neurological Disorders: Seizure Disorder Reproductive System Sexually Transmitted Disease: No HIV/AIDS: No Genitourinary History of Genitourinary Disor: No Gastrointestinal History of Gastrointestinal Di: Yes Gastrointestinal Disorders: Gastroesophageal Reflux, Gastrointestinal Bleed, Chronic Constipation, Esophagitis, Ulcer Musculoskeletal History of Musculoskeletal Dis: Yes (foot deforminties) Endocrine History of Endocrine Disorders: No HEENT History of HEENT Disorders: No Loss of Vision: Denies Cancer History of Cancer: No Psychosocial History of Psychiatric Problem: Yes Behavioral Health Disorders: Anxiety Suicide Risk Score: 0 Integumentary History of Skin or Integumenta: No Blood Transfusions History of Blood Disorders: No Reviewed Nursing Assessment Reviewed/Agree w Nursing PMH: Yes Family Medical History Significant Family History: No Pertinent Family Hx Family Medial History: Patient reports no known family medical history. Review of Systems-General Constitutional: no symptoms reported EENTM: see HPI Respiratory: no symptoms reported Gastrointestinal: see HPI Genitourinary: no symptoms reported Musculoskeletal: no symptoms reported Skin: no symptoms reported Psychiatric/Neurological: See HPI Physical Exam-General Problems Physical Exam Vital Signs Vital Sign - Last 12Hours 12/20/17 12/20/17 14:00 18:50 Temp 97.4 Pulse 114 Resp 18 B/P (MAP) 107/82 (90) Pulse Ox 92 O2 Delivery Room Air Capillary Refill : Less Than 3 Seconds General Appearance: moderate distress HEENT: normal ENT inspection Neck: limited range of motion Respiratory: lungs clear Cardiovascular: tachycardia Gastrointestinal: soft Rectal: deferred Back: other Extremities: non-tender Neurologic/Psychiatric: other Skin: warm/dry Comments unable to verbalize. Contractures of extremities. Evidence of PEG tube placement over the abdomen with no hernia. Assessment/Plan Assessment/Plan Admission Diagnosis/Plan gentleman with mental deficiency. Abdominal pain possibly due to early partial small bowel obstruction. Asymptomatic gallstones. At this point, he will be treated conservatively. A nasogastric tube was attempted by the nursing staff but he was uncooperative. Clinical Quality Measures DVT/VTE Risk/Contraindication: Risk Factor Score Per Nursin RFS Level Per Nursing on Admit: 4+=Very High Contraindications-Pharm: Other *list below* BERNARD PELAYO MD Dec 21, 2017 10:08 am
[2017-12-21] MEDS: PANTOPRAZOLE 40 MG/10 ML (PROTONIX) VIAL IV SCH ×2 (10:09→20:33)
--- NOTE | 2017-12-21 10:28 | Progress Note (SOAP) ---
Subjective Date Seen by Provider: Dec 21, 2017 Time Seen by Provider: 09:55 Subjective/Events-last exam no vomiting. Reports being hungry. Vital signs stable. Abdominal x-ray shows air and hard stools in the left colon with no dilatation of small bowel loops Review of Systems General: No Chills, No Night Sweats, No Fatigue, No Malaise HEENT: No Head Aches, No Eye Pain, No Ear Pain, No Dysphasia, No Sinus Congestion, No Post Nasal Drip, No Sore Throat Pulmonary: No Dyspnea, No Cough, No Pleuritic Chest Pain Cardiovascular: No: Chest Pain, Palpitations, Orthopnea, Paroxysmal Noc. Dyspnea, Edema, Lt Headedness Gastrointestinal: No: Nausea, Vomiting, Abdominal Pain, Diarrhea, Constipation , Melena, Hematochezia Genitourinary: No Dysuria, No Frequency, No Incontinence, No Hematuria, No Retention Musculoskeletal: No: other, neck pain, shoulder pain, arm pain, back pain, hand pain, leg pain, foot pain Neurological: Confusion Objective Exam Vital Signs Date Time Temp Pulse Resp B/P (MAP) Pulse Ox O2 Delivery O2 Flow Rate FiO2 12/21/17 08:00 97.1 77 22 118/65 (82) 98 Room Air 12/21/17 04:20 96.7 77 19 112/61 (78) 98 Room Air 12/21/17 00:00 97.8 84 19 96/54 (68) 94 Room Air 12/20/17 18:50 98.7 96 20 99/61 (74) 98 Room Air 12/20/17 17:44 97.4 97 18 96 12/20/17 14:00 97.4 114 18 107/82 (90) 92 I & O 12/21/17 07:00 Intake Total 1000 ml Output Total 575 ml Balance 425 ml Capillary Refill : Less Than 3 Seconds General Appearance: Anxious, Mild Distress HEENT: Normal ENT Inspection Neck: Supple Respiratory: Lungs Clear Cardiovascular: Regular Rate, Rhythm Gastrointestinal: non tender, soft Neurologic/Psychiatric: Other Skin: Warm/Dry Other comments abdomen soft with no distention. Results Lab Laboratory Tests 12/20/17 13:59: White Blood Count 7.4, Red Blood Count 4.89, Hemoglobin 14.9, Hematocrit 43, Mean Corpuscular Volume 88, Mean Corpuscular Hemoglobin 31, Mean Corpuscular Hemoglobin Concent 35, Red Cell Distribution Width 14.8H, Platelet Count 246, Mean Platelet Volume 11.0H, Neutrophils (%) (Auto) 74, Lymphocytes (%) (Auto) 14 , Monocytes (%) (Auto) 12, Eosinophils (%) (Auto) 0, Basophils (%) (Auto) 0, Neutrophils # (Auto) 5.5, Lymphocytes # (Auto) 1.0, Monocytes # (Auto) 0.9, Eosinophils # (Auto) 0.0, Basophils # (Auto) 0.0, Sodium Level 142, Potassium Level 4.0, Chloride Level 105, Carbon Dioxide Level 20L, Anion Gap 17H, Blood Urea Nitrogen 55H, Creatinine 2.02H, Estimat Glomerular Filtration Rate 34, BUN/ Creatinine Ratio 27, Glucose Level 132H, Calcium Level 9.6, Total Bilirubin 0.6 , Aspartate Amino Transf (AST/SGOT) 32, Alanine Aminotransferase (ALT/SGPT) 18, Alkaline Phosphatase 88, Total Protein 8.3H, Albumin 4.2, Lipase 9 12/20/17 23:15: Urine Color YELLOW, Urine Clarity CLEAR, Urine pH 5, Urine Specific Tad 1.025H, Urine Protein 1+H, Urine Glucose (UA) NEGATIVE, Urine Ketones 1+H, Urine Nitrite NEGATIVE, Urine Bilirubin NEGATIVE, Urine Urobilinogen NORMAL, Urine Leukocyte Esterase 1+H, Urine RBC (Auto) 2+H, Urine RBC RARE, Urine WBC RARE, Urine Squamous Epithelial Cells RARE, Urine Crystals NONE, Urine Bacteria NEGATIVE, Urine Casts PRESENT, Urine Hyaline Casts 2-5H, Urine Mucus NEGATIVE, Urine Culture Indicated NO 12/21/17 08:05: White Blood Count 5.5, Red Blood Count 4.07L, Hemoglobin 12.3L, Hematocrit 36L, Mean Corpuscular Volume 89, Mean Corpuscular Hemoglobin 30, Mean Corpuscular Hemoglobin Concent 34, Red Cell Distribution Width 14.9H, Platelet Count 158, Mean Platelet Volume 10.2, Neutrophils (%) (Auto) 52, Lymphocytes (%) (Auto) 28 , Monocytes (%) (Auto) 18H, Eosinophils (%) (Auto) 1, Basophils (%) (Auto) 0, Neutrophils # (Auto) 2.9, Lymphocytes # (Auto) 1.5, Monocytes # (Auto) 1.0, Eosinophils # (Auto) 0.1, Basophils # (Auto) 0.0, Sodium Level 143, Potassium Level 3.7, Chloride Level 114H, Carbon Dioxide Level 19L, Anion Gap 10, Blood Urea Nitrogen 47H, Creatinine 1.09, Estimat Glomerular Filtration Rate > 60, BUN /Creatinine Ratio 43, Glucose Level 80, Calcium Level 8.4L, Total Bilirubin 0.7 , Aspartate Amino Transf (AST/SGOT) 41H, Alanine Aminotransferase (ALT/SGPT) 22 , Alkaline Phosphatase 70, Total Protein 6.5, Albumin 3.4, Neutrophils % (Manual ) 55, Lymphocytes % (Manual) 30, Monocytes % (Manual) 11, Eosinophils % (Manual ) 0, Basophils % (Manual) 1, Band Neutrophils 3, Elliptocytes SLIGHT Assessment/Plan Assessment/Plan Assess & Plan/Chief Complaint gentleman with mental deficiency. Abdominal pain possibly due to early partial small bowel obstruction. Asymptomatic gallstones. At this point, he will be treated conservatively. A nasogastric tube was attempted by the nursing staff but he was uncooperative. gentleman with abdominal pain possibly due to chronic constipation and symptomatic gallstones. Reasonable to obtain an ultrasound first and use conservative measures. Final Diagnosis abdominal pain. Gallstone. Constipation Clinical Quality Measures DVT/VTE Risk/Contraindication: Risk Factor Score Per Nursin RFS Level Per Nursing on Admit: 4+=Very High Contraindications-Pharm: Other *list below* BERNARD PELAYO MD Dec 21, 2017 10:27 am
[2017-12-21] MEDS ORDERED: MAGNESIUM CITRATE 300 ML BTL PO NR (10:30)
[2017-12-21] MEDS ORDERED: BISACODYL 10 MG SUPP (DULCOLAX) PR NR (10:30)
[2017-12-21 12:00] VITALS: BP 116/57
--- NOTE | 2017-12-21 14:47 | Diagnostic Imaging Report ---
INDICATION: Cholelithiasis. TECHNIQUE: Multiple grayscale sonographic images were obtained of the right upper quadrant of the abdomen. CORRELATION STUDY: None. FINDINGS: LIVER: There is heterogeneous echotexture throughout the liver parenchyma. No definitive focal lesion. Echo penetration however is somewhat limited. Liver length 13 cm. GALLBLADDER: Multiple stones are noted within the gallbladder including neck and fundal aspect. No definitive gallbladder wall thickening. Some portions are shadowed by the calcification. COMMON BILE DUCT: Obscured by overlying bowel gas. PANCREAS: Obscured. RIGHT KIDNEY: Unable to be visualized. AORTA/IVC: Not well visualized. OTHER: The examination is overall fairly limited and compromised. Patient was reportedly unable to follow directions and/or remain still at time of imaging. IMPRESSION: 1. Overall fairly limited right upper quadrant ultrasound evaluation. There is presence of multiple stones including within the neck. No definitive gallbladder wall thickening. Biliary tree unable to be visualized. 2. Liver has a somewhat heterogeneous echotexture and slightly small. Possibility of underlying liver disease would be difficult to exclude. Dictated by: Dictated on workstation # [id number]
[2017-12-21 16:30] VITALS: BP 99/65
[2017-12-22] VITALS: BP 148/90
[2017-12-22] MEDS ORDERED: BISACODYL 10 MG SUPP (DULCOLAX) ONE (01:46)
[2017-12-22 07:16] LABS: BASOPHILS % (AUTO) 0 % (0-10); EOSINOPHILS # (AUTO) 0.2 10^3/uL (0.0-0.3); EOSINOPHILS % (AUTO) 3 % (0-10); HEMATOCRIT 35 % (40-54); LYMPHOCYTES # (AUTO) 1.3 X 10^3 (1.0-4.0); LYMPHOCYTES % (AUTO) 25 % (12-44); MEAN CORPUSCULAR HEMOGLOBIN 31 PG (25-34); MEAN CORPUSCULAR HGB CONC 34 G/DL (32-36); MEAN CORPUSCULAR VOLUME 89 FL (80-99); MEAN PLATELET VOLUME 10.1 FL (7.4-10.4); MONOCYTES % (AUTO) 18 % (0-12); NEUTROPHILS # (AUTO) 2.8 X 10^3 (1.8-7.8); NEUTROPHILS % (AUTO) 54 % (42-75); PLATELET COUNT 119 10^3/uL (130-400); RED BLOOD COUNT 3.91 10^6/uL (4.35-5.85); RED CELL DISTRIBUTION WIDTH 14.5 % (10.0-14.5); WHITE BLOOD COUNT 5.2 10^3/uL (4.3-11.0)
[2017-12-22 07:35] LABS: BUN/CREATININE RATIO 33; CARBON DIOXIDE 21 MMOL/L (21-32); CHLORIDE 111 MMOL/L (98-107); CREATININE SERUM 0.73 MG/DL (0.60-1.30); GFR ESTIMATED > 60; GLUCOSE 85 MG/DL (70-105); POTASSIUM 3.8 MMOL/L (3.6-5.0); SODIUM 141 MMOL/L (135-145)
--- NOTE | 2017-12-22 07:59 | Progress Note (SOAP) ---
Subjective Time Seen by Provider: 07:55 Subjective/Events-last exam small bowel obstruction. Patient doing better today. Patient afebrile and white blood cell count normal. Patient bowel movements all night long Waiting for abdominal x-ray this a.m. Objective Exam Vital Signs Date Time Temp Pulse Resp B/P (MAP) Pulse Ox O2 Delivery O2 Flow Rate FiO2 12/22/17 00:00 96.4 76 17 148/90 (109) 95 Room Air 12/21/17 16:30 100.6 96 22 99/65 (76) 95 Room Air 12/21/17 12:00 97.3 80 18 116/57 (76) 96 Room Air 12/21/17 08:00 97.1 77 22 118/65 (82) 98 Room Air I & O 12/22/17 07:00 Intake Total 790 ml Output Total 1175 ml Balance -385 ml Capillary Refill : Less Than 3 Seconds General Appearance: No Apparent Distress, WD/WN HEENT: Normal ENT Inspection Neck: Normal Inspection Respiratory: Chest Non Tender, Lungs Clear, No Accessory Muscle Use, No Respiratory Distress Cardiovascular: Regular Rate, Rhythm, No Murmur Gastrointestinal: non tender, soft Results Lab Laboratory Tests 12/21/17 08:05 12/22/17 07:06 Laboratory Tests 12/21/17 08:05: White Blood Count 5.5, Red Blood Count 4.07L, Hemoglobin 12.3L, Hematocrit 36L, Mean Corpuscular Volume 89, Mean Corpuscular Hemoglobin 30, Mean Corpuscular Hemoglobin Concent 34, Red Cell Distribution Width 14.9H, Platelet Count 158, Mean Platelet Volume 10.2, Neutrophils (%) (Auto) 52, Lymphocytes (%) (Auto) 28 , Monocytes (%) (Auto) 18H, Eosinophils (%) (Auto) 1, Basophils (%) (Auto) 0, Neutrophils # (Auto) 2.9, Lymphocytes # (Auto) 1.5, Monocytes # (Auto) 1.0, Eosinophils # (Auto) 0.1, Basophils # (Auto) 0.0, Neutrophils % (Manual) 55, Lymphocytes % (Manual) 30, Monocytes % (Manual) 11, Eosinophils % (Manual) 0, Basophils % (Manual) 1, Band Neutrophils 3, Elliptocytes SLIGHT, Sodium Level 143, Potassium Level 3.7, Chloride Level 114H, Carbon Dioxide Level 19L, Anion Gap 10, Blood Urea Nitrogen 47H, Creatinine 1.09, Estimat Glomerular Filtration Rate > 60, BUN/Creatinine Ratio 43, Glucose Level 80, Calcium Level 8.4L, Total Bilirubin 0.7, Aspartate Amino Transf (AST/SGOT) 41H, Alanine Aminotransferase ( ALT/SGPT) 22, Alkaline Phosphatase 70, Total Protein 6.5, Albumin 3.4 12/22/17 07:06: White Blood Count 5.2, Red Blood Count 3.91L, Hemoglobin 12.0L, Hematocrit 35L, Mean Corpuscular Volume 89, Mean Corpuscular Hemoglobin 31, Mean Corpuscular Hemoglobin Concent 34, Red Cell Distribution Width 14.5, Platelet Count 119L, Mean Platelet Volume 10.1, Neutrophils (%) (Auto) 54, Lymphocytes (%) (Auto) 25 , Monocytes (%) (Auto) 18H, Eosinophils (%) (Auto) 3, Basophils (%) (Auto) 0, Neutrophils # (Auto) 2.8, Lymphocytes # (Auto) 1.3, Monocytes # (Auto) 1.0, Eosinophils # (Auto) 0.2, Basophils # (Auto) 0.0, Sodium Level 141, Potassium Level 3.8, Chloride Level 111H, Carbon Dioxide Level 21, Anion Gap 9, Blood Urea Nitrogen 24H, Creatinine 0.73, Estimat Glomerular Filtration Rate > 60, BUN /Creatinine Ratio 33, Glucose Level 85, Calcium Level 8.0L Assessment/Plan Assessment/Plan Assess & Plan/Chief Complaint 123/18. Small bowel obstruction. Severe mental retardation. Patient not in any pain today. Eating for lab and x-ray resultsarea . 12/22/17. Small bowel obstruction. Patient have bowel movements all night long. Abdomen soft. Waiting for report on abdominal x-ray this a.m. Patient doing better clinically Clinical Quality Measures DVT/VTE Risk/Contraindication: Risk Factor Score Per Nursin RFS Level Per Nursing on Admit: 4+=Very High Contraindications-Pharm: Other *list below* JUSTIN DUNBAR DO Dec 22, 2017 07:58
[2017-12-22 08:00] VITALS: BP 139/70
[2017-12-22] MEDS ORDERED: CATHETER FLUSH 10 ML SYR IV PRN (08:30)
--- NOTE | 2017-12-22 08:31 | Diagnostic Imaging Report ---
INDICATION: Small bowel obstruction. Time of exam: 8:04 AM Correlation is made with prior study one day earlier. Rectal catheter has been removed. There is a mild to moderate gaseous distention of small and large bowel loops throughout the abdomen. This is similar to yesterday's exam. No bowel wall thickening or pneumatosis is seen. IMPRESSION: Continued moderate gaseous distention of small and large bowel loops. This may be on the basis of ileus. Continued progress films are recommended. Dictated by: Dictated on workstation # [id number]
[2017-12-22] MEDS: PANTOPRAZOLE 40 MG/10 ML (PROTONIX) VIAL IV SCH ×2 (09:34→21:12)
--- NOTE | 2017-12-22 13:47 | Progress Note (SOAP) ---
Subjective Date Seen by Provider: Dec 22, 2017 Time Seen by Provider: 13:44 Subjective/Events-last exam no more vomiting or nausea. Having dictated bowel movements. No small bowel dilatation on abdominal x-ray. Air within the colon and therefore mechanical obstruction less likely. Review of Systems General: No Chills, No Night Sweats, No Fatigue, No Malaise Pulmonary: No Dyspnea, No Cough, No Pleuritic Chest Pain Cardiovascular: No: Chest Pain, Palpitations, Orthopnea, Paroxysmal Noc. Dyspnea, Edema, Lt Headedness Gastrointestinal: No: Nausea, Vomiting, Abdominal Pain, Diarrhea, Constipation , Melena, Hematochezia Genitourinary: No Dysuria, No Frequency, No Incontinence, No Hematuria, No Retention Musculoskeletal: No: other, neck pain, shoulder pain, arm pain, back pain, hand pain, leg pain, foot pain Neurological: Incoordination Objective Exam Vital Signs Date Time Temp Pulse Resp B/P (MAP) Pulse Ox O2 Delivery O2 Flow Rate FiO2 12/22/17 08:00 97.2 82 18 139/70 (93) 96 Room Air 12/22/17 00:00 96.4 76 17 148/90 (109) 95 Room Air 12/21/17 16:30 100.6 96 22 99/65 (76) 95 Room Air I & O 12/22/17 07:00 Intake Total 790 ml Output Total 1175 ml Balance -385 ml Capillary Refill : Less Than 3 Seconds General Appearance: No Apparent Distress Neck: Normal Inspection Respiratory: Lungs Clear Cardiovascular: Regular Rate, Rhythm Gastrointestinal: soft Extremity: Non Tender Skin: Warm/Dry Other comments long-standing contractures. Abdomen soft Results Lab Laboratory Tests 12/22/17 07:06: White Blood Count 5.2, Red Blood Count 3.91L, Hemoglobin 12.0L, Hematocrit 35L, Mean Corpuscular Volume 89, Mean Corpuscular Hemoglobin 31, Mean Corpuscular Hemoglobin Concent 34, Red Cell Distribution Width 14.5, Platelet Count 119L, Mean Platelet Volume 10.1, Neutrophils (%) (Auto) 54, Lymphocytes (%) (Auto) 25 , Monocytes (%) (Auto) 18H, Eosinophils (%) (Auto) 3, Basophils (%) (Auto) 0, Neutrophils # (Auto) 2.8, Lymphocytes # (Auto) 1.3, Monocytes # (Auto) 1.0, Eosinophils # (Auto) 0.2, Basophils # (Auto) 0.0, Sodium Level 141, Potassium Level 3.8, Chloride Level 111H, Carbon Dioxide Level 21, Anion Gap 9, Blood Urea Nitrogen 24H, Creatinine 0.73, Estimat Glomerular Filtration Rate > 60, BUN /Creatinine Ratio 33, Glucose Level 85, Calcium Level 8.0L Assessment/Plan Assessment/Plan Assess & Plan/Chief Complaint gentleman with mental deficiency. Abdominal pain possibly due to early partial small bowel obstruction. Asymptomatic gallstones. At this point, he will be treated conservatively. A nasogastric tube was attempted by the nursing staff but he was uncooperative. gentleman with abdominal pain possibly due to chronic constipation and symptomatic gallstones. Reasonable to obtain an ultrasound first and use conservative measures. abdominal pain possibly due to chronic constipation. Response to magnesium citrate, which would be repeated. Gallstones. Could be discharged back to the facility soon. Will be brought back for outpatient colonoscopy first PR followed within a week by cholecystectomy. Final Diagnosis gallstones. Chronic constipation. Clinical Quality Measures DVT/VTE Risk/Contraindication: Risk Factor Score Per Nursin RFS Level Per Nursing on Admit: 4+=Very High Contraindications-Pharm: Other *list below* BERNARD PELAYO MD Dec 22, 2017 1:47 pm
[2017-12-22] MEDS ORDERED: MAGNESIUM CITRATE 300 ML BTL PO NR (14:30)
[2017-12-22] MEDS: CATHETER FLUSH 10 ML SYR IV SCH ×2 (14:34→21:12)
[2017-12-22 16:31] VITALS: BP 125/80
[2017-12-23 00:45] VITALS: BP 122/80
[2017-12-23 07:41] VITALS: BP 137/83
--- NOTE | 2017-12-23 07:50 | Progress Note (SOAP) ---
Subjective Time Seen by Provider: 07:50 Subjective/Events-last exam small bowel obstruction. Ileus. Patient doing better today. Patient had 2 breakfast this morning. Patient had a liquid stool last night. Patient may be discharged today Objective Exam Vital Signs Date Time Temp Pulse Resp B/P (MAP) Pulse Ox O2 Delivery O2 Flow Rate FiO2 12/23/17 07:41 97.5 88 20 137/83 (101) 96 Room Air 12/23/17 00:45 98.6 79 20 122/80 (94) 97 Room Air 12/22/17 16:31 98.2 71 20 125/80 (95) 97 Room Air 12/22/17 08:00 97.2 82 18 139/70 (93) 96 Room Air I & O 12/23/17 07:00 Intake Total 2082 ml Output Total 2300 ml Balance -218 ml Capillary Refill : Less Than 3 Seconds General Appearance: No Apparent Distress, WD/WN HEENT: Normal ENT Inspection Neck: Full Range of Motion, Normal Inspection Respiratory: Lungs Clear, No Accessory Muscle Use, No Respiratory Distress Cardiovascular: Regular Rate, Rhythm Gastrointestinal: non tender, soft Assessment/Plan Assessment/Plan Assess & Plan/Chief Complaint 123/18. Small bowel obstruction. Severe mental retardation. Patient not in any pain today. Eating for lab and x-ray resultsarea . 12/22/17. Small bowel obstruction. Patient have bowel movements all night long. Abdomen soft. Waiting for report on abdominal x-ray this a.m. Patient doing better clinically. . 12/23/17. Small bowel obstruction appears to be resolved Severe MR. patient had 2 breakfast this morning. Hand bowel movement last night Clinical Quality Measures DVT/VTE Risk/Contraindication: Risk Factor Score Per Nursin RFS Level Per Nursing on Admit: 4+=Very High Contraindications-Pharm: Other *list below* JUSTIN DUNBAR DO Dec 23, 2017 07:50
--- NOTE | 2017-12-23 07:57 | Physician Query Clarification ---
PQ-Uncertain Diagnosis Admission/Discharge Admission Date: Dec 20, 2017 at 16:50 Discharge Date: The medical record reflects the following clinical scenario: History/Risk Factors: Vomiting/Abdominal pain Clinical Findings: Gallstones Constipation Treatment: Attempted nasogastric tube. Magnesium citrate. Gallbladder ultrasound. Question: Is Partial small bowel obstruction a clinically valid diagnosis after study? Please document a response below. PHYSICIAN RESPONSE Diagnosis clinically valid: Yes, Conditon resolved In responding to this query, please exercise your independent professional judgment. The purpose of this communication is to more accurately reflect the complexity of your patients condition. The fact that a question is asked does not imply that any particular answer is desired or expected. Thank you for your timely response to this clarification. Requestors name: Hattie Florian [facility] Phone # ext [phone] or [phone] THIS PHYSICIAN QUERY FORM IS A PERMANENT PART OF THE MEDICAL RECORD HATTIE FLORIAN Dec 23, 2017 07:56 JUSTIN DUNBAR DO Dec 23, 2017 18:18
[2017-12-23] MEDS: CATHETER FLUSH 10 ML SYR IV SCH ×2 (09:05→13:46)
[2017-12-23] MEDS: PANTOPRAZOLE 40 MG/10 ML (PROTONIX) VIAL IV SCH (09:05)
--- NOTE | 2017-12-23 10:16 | Diagnostic Imaging Report ---
INDICATION: Small bowel obstruction. TIME OF EXAM: 8:28 AM. COMPARISON: 12/22/2017. FINDINGS: The degree of gaseous distention of the small and large bowel appears to be improved. There is some mild to moderate gaseous distention of the stomach. No bowel wall thickening is seen. No pneumatosis is identified. No free air is identified. IMPRESSION: There has been some mild improvement in the gaseous distention of small and large bowel loops when compared with the examination of one day earlier. Dictated by: Dictated on workstation # [id number]
[2017-12-23] MEDS ORDERED: PANTOPRAZOLE 40 MG (PROTONIX) TAB PO SCH (17:00)
--- NOTE | 2017-12-23 18:27 | Discharge Summary ---
Diagnosis/Chief Complaint Date of Admission Dec 20, 2017 at 16:50 Date of Discharge Dec 23, 2017 at 14:08 Discharge Date: Dec 23, 2017 Admission Diagnosis Admission Diagnosis small bowel obstruction. Severe MR. Vomiting Discharge Diagnosis partial small bowel obstruction. Severe mental retardation. Vomiting. Asymptomatic gallstones. Epilepsy. Constipation. severe intellectual disability Reason Hospital Visit patient severe MRRosemary Patient had a home. Patient had vomiting for the last few days. Yesterday diarrhea or. Patient had abdominal pain. Patient came out to the emergency room. CAT scan shows small bowel obstruction. Patient admitted Patient unable to give any history Discharge Summary Consultations surgery Discharge Physical Examination Allergies: Coded Allergies: No Known Drug Allergies (Unverified , 08/08/13) Vitals & I&Os Vital Signs Date Time Temp Pulse Resp B/P (MAP) Pulse Ox O2 Delivery O2 Flow Rate FiO2 12/23/17 14:08 12/23/17 07:41 97.5 88 20 96 Room Air Hospital Course patient hospital did better. Patient able to eat. Patient had bowel movements. X-ray of the abdomen improved Labs (last 24 hrs) Laboratory Tests 12/20/17 13:59: White Blood Count 7.4, Red Blood Count 4.89, Hemoglobin 14.9, Hematocrit 43, Mean Corpuscular Volume 88, Mean Corpuscular Hemoglobin 31, Mean Corpuscular Hemoglobin Concent 35, Red Cell Distribution Width 14.8H, Platelet Count 246, Mean Platelet Volume 11.0H, Neutrophils (%) (Auto) 74, Lymphocytes (%) (Auto) 14 , Monocytes (%) (Auto) 12, Eosinophils (%) (Auto) 0, Basophils (%) (Auto) 0, Neutrophils # (Auto) 5.5, Lymphocytes # (Auto) 1.0, Monocytes # (Auto) 0.9, Eosinophils # (Auto) 0.0, Basophils # (Auto) 0.0, Sodium Level 142, Potassium Level 4.0, Chloride Level 105, Carbon Dioxide Level 20L, Anion Gap 17H, Blood Urea Nitrogen 55H, Creatinine 2.02H, Estimat Glomerular Filtration Rate 34, BUN/ Creatinine Ratio 27, Glucose Level 132H, Calcium Level 9.6, Total Bilirubin 0.6 , Aspartate Amino Transf (AST/SGOT) 32, Alanine Aminotransferase (ALT/SGPT) 18, Alkaline Phosphatase 88, Total Protein 8.3H, Albumin 4.2, Lipase 9 12/20/17 23:15: Urine Color YELLOW, Urine Clarity CLEAR, Urine pH 5, Urine Specific [place] 1.025H, Urine Protein 1+H, Urine Glucose (UA) NEGATIVE, Urine Ketones 1+H, Urine Nitrite NEGATIVE, Urine Bilirubin NEGATIVE, Urine Urobilinogen NORMAL, Urine Leukocyte Esterase 1+H, Urine RBC (Auto) 2+H, Urine RBC RARE, Urine WBC RARE, Urine Squamous Epithelial Cells RARE, Urine Crystals NONE, Urine Bacteria NEGATIVE, Urine Casts PRESENT, Urine Hyaline Casts 2-5H, Urine Mucus NEGATIVE, Urine Culture Indicated NO 12/21/17 08:05: White Blood Count 5.5, Red Blood Count 4.07L, Hemoglobin 12.3L, Hematocrit 36L, Mean Corpuscular Volume 89, Mean Corpuscular Hemoglobin 30, Mean Corpuscular Hemoglobin Concent 34, Red Cell Distribution Width 14.9H, Platelet Count 158, Mean Platelet Volume 10.2, Neutrophils (%) (Auto) 52, Lymphocytes (%) (Auto) 28 , Monocytes (%) (Auto) 18H, Eosinophils (%) (Auto) 1, Basophils (%) (Auto) 0, Neutrophils # (Auto) 2.9, Lymphocytes # (Auto) 1.5, Monocytes # (Auto) 1.0, Eosinophils # (Auto) 0.1, Basophils # (Auto) 0.0, Sodium Level 143, Potassium Level 3.7, Chloride Level 114H, Carbon Dioxide Level 19L, Anion Gap 10, Blood Urea Nitrogen 47H, Creatinine 1.09, Estimat Glomerular Filtration Rate > 60, BUN /Creatinine Ratio 43, Glucose Level 80, Calcium Level 8.4L, Total Bilirubin 0.7 , Aspartate Amino Transf (AST/SGOT) 41H, Alanine Aminotransferase (ALT/SGPT) 22 , Alkaline Phosphatase 70, Total Protein 6.5, Albumin 3.4, Neutrophils % (Manual ) 55, Lymphocytes % (Manual) 30, Monocytes % (Manual) 11, Eosinophils % (Manual ) 0, Basophils % (Manual) 1, Band Neutrophils 3, Elliptocytes SLIGHT 12/22/17 07:06: White Blood Count 5.2, Red Blood Count 3.91L, Hemoglobin 12.0L, Hematocrit 35L, Mean Corpuscular Volume 89, Mean Corpuscular Hemoglobin 31, Mean Corpuscular Hemoglobin Concent 34, Red Cell Distribution Width 14.5, Platelet Count 119L, Mean Platelet Volume 10.1, Neutrophils (%) (Auto) 54, Lymphocytes (%) (Auto) 25 , Monocytes (%) (Auto) 18H, Eosinophils (%) (Auto) 3, Basophils (%) (Auto) 0, Neutrophils # (Auto) 2.8, Lymphocytes # (Auto) 1.3, Monocytes # (Auto) 1.0, Eosinophils # (Auto) 0.2, Basophils # (Auto) 0.0, Sodium Level 141, Potassium Level 3.8, Chloride Level 111H, Carbon Dioxide Level 21, Anion Gap 9, Blood Urea Nitrogen 24H, Creatinine 0.73, Estimat Glomerular Filtration Rate > 60, BUN /Creatinine Ratio 33, Glucose Level 85, Calcium Level 8.0L Laboratory Tests 12/20/17 13:59 12/21/17 08:05 12/22/17 07:06 Pending Labs Laboratory Tests 12/20/17 13:59: White Blood Count 7.4, Red Blood Count 4.89, Hemoglobin 14.9, Hematocrit 43, Mean Corpuscular Volume 88, Mean Corpuscular Hemoglobin 31, Mean Corpuscular Hemoglobin Concent 35, Red Cell Distribution Width 14.8, Platelet Count 246, Mean Platelet Volume 11.0, Neutrophils (%) (Auto) 74, Lymphocytes (%) (Auto) 14 , Monocytes (%) (Auto) 12, Eosinophils (%) (Auto) 0, Basophils (%) (Auto) 0, Neutrophils # (Auto) 5.5, Lymphocytes # (Auto) 1.0, Monocytes # (Auto) 0.9, Eosinophils # (Auto) 0.0, Basophils # (Auto) 0.0, Sodium Level 142, Potassium Level 4.0, Chloride Level 105, Carbon Dioxide Level 20, Anion Gap 17, Blood Urea Nitrogen 55, Creatinine 2.02, Estimat Glomerular Filtration Rate 34, BUN/ Creatinine Ratio 27, Glucose Level 132, Calcium Level 9.6, Total Bilirubin 0.6, Aspartate Amino Transf (AST/SGOT) 32, Alanine Aminotransferase (ALT/SGPT) 18, Alkaline Phosphatase 88, Total Protein 8.3, Albumin 4.2, Lipase 9 12/20/17 23:15: Urine Color YELLOW, Urine Clarity CLEAR, Urine pH 5, Urine Specific [place] 1.025, Urine Protein 1+, Urine Glucose (UA) NEGATIVE, Urine Ketones 1+, Urine Nitrite NEGATIVE, Urine Bilirubin NEGATIVE, Urine Urobilinogen NORMAL, Urine Leukocyte Esterase 1+, Urine RBC (Auto) 2+, Urine RBC RARE, Urine WBC RARE, Urine Squamous Epithelial Cells RARE, Urine Crystals NONE, Urine Bacteria NEGATIVE, Urine Casts PRESENT, Urine Hyaline Casts 2-5, Urine Mucus NEGATIVE, Urine Culture Indicated NO 12/21/17 08:05: White Blood Count 5.5, Red Blood Count 4.07, Hemoglobin 12.3, Hematocrit 36, Mean Corpuscular Volume 89, Mean Corpuscular Hemoglobin 30, Mean Corpuscular Hemoglobin Concent 34, Red Cell Distribution Width 14.9, Platelet Count 158, Mean Platelet Volume 10.2, Neutrophils (%) (Auto) 52, Lymphocytes (%) (Auto) 28 , Monocytes (%) (Auto) 18, Eosinophils (%) (Auto) 1, Basophils (%) (Auto) 0, Neutrophils # (Auto) 2.9, Lymphocytes # (Auto) 1.5, Monocytes # (Auto) 1.0, Eosinophils # (Auto) 0.1, Basophils # (Auto) 0.0, Sodium Level 143, Potassium Level 3.7, Chloride Level 114, Carbon Dioxide Level 19, Anion Gap 10, Blood Urea Nitrogen 47, Creatinine 1.09, Estimat Glomerular Filtration Rate > 60, BUN/ Creatinine Ratio 43, Glucose Level 80, Calcium Level 8.4, Total Bilirubin 0.7, Aspartate Amino Transf (AST/SGOT) 41, Alanine Aminotransferase (ALT/SGPT) 22, Alkaline Phosphatase 70, Total Protein 6.5, Albumin 3.4, Neutrophils % (Manual) 55, Lymphocytes % (Manual) 30, Monocytes % (Manual) 11, Eosinophils % (Manual) 0 , Basophils % (Manual) 1, Band Neutrophils 3, Elliptocytes SLIGHT 12/22/17 07:06: White Blood Count 5.2, Red Blood Count 3.91, Hemoglobin 12.0, Hematocrit 35, Mean Corpuscular Volume 89, Mean Corpuscular Hemoglobin 31, Mean Corpuscular Hemoglobin Concent 34, Red Cell Distribution Width 14.5, Platelet Count 119, Mean Platelet Volume 10.1, Neutrophils (%) (Auto) 54, Lymphocytes (%) (Auto) 25 , Monocytes (%) (Auto) 18, Eosinophils (%) (Auto) 3, Basophils (%) (Auto) 0, Neutrophils # (Auto) 2.8, Lymphocytes # (Auto) 1.3, Monocytes # (Auto) 1.0, Eosinophils # (Auto) 0.2, Basophils # (Auto) 0.0, Sodium Level 141, Potassium Level 3.8, Chloride Level 111, Carbon Dioxide Level 21, Anion Gap 9, Blood Urea Nitrogen 24, Creatinine 0.73, Estimat Glomerular Filtration Rate > 60, BUN/ Creatinine Ratio 33, Glucose Level 85, Calcium Level 8.0 Radiology Reviewed gallbladder sonogram positive for multiple gallstones and in the neck of the gallbladder Discharge Home Medications: Active Scripts Active Reported Imodium A-D (Loperamide HCl) 2 Mg Capsule 2 Mg PO UD PRN Guaifenesin Dm Syrup (Guaifenesin/Dextromethorphan) 5 Ml Syrup 10 Ml PO Q4H PRN Milk of Magnesia (Magnesium Hydroxide) 400 Mg/5 Ml Oral.susp 30 Ml PO BID PRN Benadryl (Diphenhydramine HCl) 25 Mg Capsule 50 Mg PO Q6H PRN Benadryl (Diphenhydramine HCl) 25 Mg Capsule 25 Mg PO Q6H PRN Cough Drops (Eucalyptus/Menthol) 1 Each Lozenge 1 Lozenge MM Q1H PRN MAX 8 DROPS PER DAY Antacid (Calcium Carbonate) 200 Mg Tab.chew 500 Mg PO UD PRN MAX OF 10 500MG TABS IN 1 DAY Neosporin Ointment (Neomycin Epperson/Bacitrac Zn/Poly) 28.3 Gm Oint...g. TP BID PRN Visine (Tetrahydrozoline HCl) 15 Ml Drops 2 Drops OU QID PRN Hydrocortisone 28.35 Gm Oint...g. TP TID PRN 1% CREAM Mupirocin 22 Gm Oint...g. TOP BID APPLY TOPICALLY TO GREAT TOE ON THE LEFT FOOT Fiber Laxative (Psyllium Husk) 0.52 Gm Capsule 0.52 Gm PO DAILY Sucralfate 1 Gm Tablet 1 Gm PO ACHS Pantoprazole Sodium 40 Mg Tablet.dr 40 Mg PO DAILY Olanzapine 10 Mg Tablet 10 Mg PO HS Daily Multiple Vitamin (Multivitamin) 1 Each Tablet 1 Tab PO DAILY Tylenol (Acetaminophen) 325 Mg Tablet 650 Mg PO Q6H PRN TAKES 2 (325MG) TABLETS Debrox (Carbamide Peroxide) 15 Ml Drops 5 Drops EACH EAR UD INSTILL 5 DROPS INTO BOTH EARS TWICE DAILY X 10 DAYS NOW AND PRIOR TO NEXT APPOINTMENT NEEDED Miralax (Polyethylene Glycol 3350) 17 Gm Powd.pack 17 Gm PO DAILY Instructions to patient/family Please see electronic discharge instructions given to patient. Clinical Quality Measures DVT/VTE Risk/Contraindication: Risk Factor Score Per Nursin RFS Level Per Nursing on Admit: 4+=Very High Contraindications-Pharm: Other *list below* JUSTIN DUNBAR DO Dec 23, 2017 18:27
== END 2017-12-23 14:08 | DRG 389 ==
LOC: EDUNIT# 13:10 → ER 13:12 → 4TH 16:50
PROVIDERS: ADMIT Family Medicine; ATTEND Family Medicine
DX: K56.690 Other partial intestinal obstruction (principal); K80.20 Calculus of gallbladder without cholecystitis without obstruction; K59.09 Other constipation; F72 Severe intellectual disabilities; G40.909 Epilepsy, unspecified, not intractable, without status epilepticus; K21.9 Gastro-esophageal reflux disease without esophagitis; F41.9 Anxiety disorder, unspecified; Z87.11 Personal history of peptic ulcer disease; Z87.19 Personal history of other diseases of the digestive system
CPT/HCPCS: 36415; 74018; 74176; 76705; 80048; 80053; 81000; 83690; 85007; 85025; 85027; 96360

== ENCOUNTER 2017-12-30 10:00 | Outpatient (CLI) | payer MEDICARE, MEDICAID ==
[~2017-12-30] VITALS: Ht 167.6 cm; Wt 60.8 kg
[~2017-12-30 10:00] MED LIST changes: +CALC-233 PO; +DIPH25CA79 PO; +EUCA1LOZ28 MM; +GUAI5SYR PO; +HYDR28.33 TP; +IBUP-30 PO; +LOPE-145 PO; +MAGN400O7 PO; +MULT-35 PO; +MUPI22OI2 TOP; +NEOM28.33 TP; +OLAN10TA19 PO; +PANT40TA3 PO; +PSYL0.4C2 PO; +PSYL0.5213 PO; +SUCR1TAB PO; +TETR15DR74 OU
== END 2017-12-30 10:46 ==
LOC: PREOP 10:00
PROVIDERS: ATTEND Surgery
DX: Z01.818 Encounter for other preprocedural examination (principal); R19.4 Change in bowel habit

== ENCOUNTER 2018-01-03 05:35 | Outpatient (CLI) | payer MEDICARE, MEDICAID ==
[~2018-01-03] VITALS: Ht 167.6 cm; Wt 60.8 kg
== END 2018-01-03 09:34 ==
LOC: PREOP 05:35
PROVIDERS: ATTEND Surgery
DX: Z01.818 Encounter for other preprocedural examination (principal); Z11.2 Encounter for screening for other bacterial diseases; K80.20 Calculus of gallbladder without cholecystitis without obstruction
CPT/HCPCS: 87081

== ENCOUNTER 2018-01-03 08:38 | Day surgery (SDC) | payer MEDICARE, MEDICAID ==
[~2018-01-03] VITALS: Ht 167.6 cm; Wt 60.8 kg
--- OUTSIDE RECORDS SUMMARY | 2018-01-03 08:42 | XMS REPORT | Continuity of Care Document ---
Author Author [facility] Organization [facility] Address Unknown Phone Unavailable Allergies Active Description Code Type Severity Reaction Onset Reported/Identified Relationship to Patient Clinical Status Yes No Known Drug Allergies [id number] Drug Allergy Unknown N/A 08/08/2013 Medications There [...] Iglesias Ot Y99.8 OTHER EXTERNAL CAUSE STATUS 12/23/2017 GELLENDER DO, JUSTIN Iglesias Ot F41.9 ANXIETY DISORDER, UNSPECIFIED 12/23/2017 GELLENDER DO, JUSTIN Kelsie Ot F72 SEVERE INTELLECTUAL DISABILITIES 12/23/2017 GELLENDER DO, JUSTIN Kelsie Ot G40.909 EPILEPSY, UNSP, NOT INTRACTABLE, WITHOUT 12/23/2017 GELLENDER DO, JUSTIN Kelsie Ot K21.9 GASTRO-ESOPHAGEAL REFLUX DISEASE WITHOUT 12/23/2017 GELLENDER DO, JUSTIN Kelsie Ot K56.690 OTHER PARTIAL INTESTINAL OBSTRUCTION 12/23/2017 GELLENDER DO, JUSTIN Kelsie Ot K59.09 OTHER CONSTIPATION 12/23/2017 GELLENDER DO, JUSTIN Iglesias Ot K80.20 CALCULUS OF GALLBLADDER W/O CHOLECYSTITI 12/23/2017 GELLENDER DO, JUSTIN Iglesias Ot Z87.11 PERSONAL HISTORY OF PEPTIC ULCER DISEASE 12/23/2017 GELLENDER DO, JUSTIN Iglesias Ot Z87.19 PERSONAL HISTORY OF OTHER DISEASES OF TH 12/28/2017 GITA LEMUS, BERNARD German Ot R19.4 CHANGE IN BOWEL HABIT 12/28/2017 GITA LEMUS, BERNARD German Ot Z01.818 ENCOUNTER FOR OTHER PREPROCEDURAL EXAMIN 12/29/2017 GITA LEMUS, BERNARD German Ot R19.4 CHANGE IN BOWEL HABIT 12/29/2017 GITA LEMUS, BERNARD German Ot Z01.818 ENCOUNTER FOR OTHER PREPROCEDURAL EXAMIN 12/29/2017 GITA LEMUS, BERNARD German Ot R19.4 CHANGE IN BOWEL HABIT 12/29/2017 GITA LEMUS, BERNARD German Ot Z01.818 ENCOUNTER FOR OTHER PREPROCEDURAL EXAMIN 12/30/2017 GITA LEMUS, BERNARD German Ot R19.4 CHANGE IN BOWEL HABIT 12/30/2017 GITA LEMUS, BERNARD German Ot Z01.818 ENCOUNTER FOR OTHER PREPROCEDURAL EXAMIN 12/31/2017 BERNARD PELAYO MD Ot R19.4 CHANGE IN BOWEL HABIT 12/31/2017 BERNARD PELAYO MD, Ot Z01.818 ENCOUNTER FOR OTHER PREPROCEDURAL EXAMIN Procedures Code Description Performed By Performed On 43.11 PERCUTANEOUS [ENDOSCOPIC] GASTROSTOMY [P 08/24/2013 [id number] EXCISION OF ESOPHAGAST JUNCT, PERC ENDO 12/17/2016 [id number] EXCISION OF STOMACH, PERCUTANEOUS APPROA 12/17/2016 Results [...] - 12/16/16 15:00 QUANTITY OF GROWTH Isolated [facility] Bacterial blood culture [id number] [facility] Bacterial blood culture - 12/16/16 15:04 QUANTITY OF GROWTH Isolated [facility] Bacterial blood culture [id number] [facility] Serum or plasma lactate measurement (moles/volume) - [...] - 12/20/17 13:59 Lipase 9 U/L 8-78 Complete urinalysis with reflex to culture - 12/20/17 23:15 Urine color determination YELLOW NR[facility] Urine clarity determination CLEAR NRG Urine pH measurement by test strip 5 5-9 Specific gravity of urine by test strip 1.025 1.016- 1.022 Urine protein assay by test strip, semi-quantitative 1+ NEGATIVE Urine glucose detection by automated test strip NEGATIVE NEGATIVE Erythrocytes detection in urine sediment by light microscopy 2+ NEGATIVE Urine ketones detection by automated test strip 1+ NEGATIVE Urine nitrite detection by test strip NEGATIVE NEGATIVE Urine total bilirubin detection by test strip NEGATIVE NEGATIVE Urine urobilinogen measurement by automated test strip (mass/volume) NORMAL NORMAL Urine leukocyte esterase detection by dipstick 1+ NEGATIVE Automated urine sediment erythrocyte count by microscopy (number/high power field) RARE NRG Automated urine sediment leukocyte count by microscopy (number/high power field ) RARE NRG Bacteria detection in urine sediment by light microscopy NEGATIVE NRG Squamous epithelial cells detection in urine sediment by light microscopy RARE NRG Crystals detection in urine sediment by light microscopy NONE NRG Casts detection in urine sediment by light microscopy PRESENT NRG Mucus detection in urine sediment by light microscopy NEGATIVE NRG Complete urinalysis with reflex to culture NO NRG Hyaline casts detection in urine sediment by light microscopy 2-5 NRG Complete blood count (CBC) with automated white blood cell (WBC) differential - 12/21/17 08:05 Blood leukocytes automated count (number/volume) 5.5 10*3/uL 4.3-11.0 Blood erythrocytes automated count (number/volume) 4.07 10*6/uL 4.35-5.85 Venous blood hemoglobin measurement (mass/volume) 12.3 g/dL 13.3-17.7 Blood hematocrit (volume fraction) 36 % 40-54 Automated erythrocyte mean corpuscular volume 89 [foz_us] 80-99 Automated erythrocyte mean corpuscular hemoglobin (mass per erythrocyte) 30 pg 25-34 Automated erythrocyte mean corpuscular hemoglobin concentration measurement ( mass/volume) 34 g/dL 32-36 Automated erythrocyte distribution width ratio 14.9 % 10.0-14.5 Automated blood platelet count (count/volume) 158 10*3/uL 130-400 Automated blood platelet mean volume measurement 10.2 [foz_us] 7.4-10.4 Automated blood neutrophils/100 leukocytes 52 % 42-75 Automated blood lymphocytes/100 leukocytes 28 % 12-44 Blood monocytes/100 leukocytes 18 % 0-12 Automated blood eosinophils/100 leukocytes 1 % 0-10 Automated blood basophils/100 leukocytes 0 % 0-10 Blood neutrophils automated count (number/volume) 2.9 10*3 1.8-7.8 Blood lymphocytes automated count (number/volume) 1.5 10*3 1.0-4.0 Blood monocytes automated count (number/volume) 1.0 10*3 0.0-1.0 Automated eosinophil count 0.1 10*3/uL 0.0-0.3 Automated blood basophil count (count/volume) 0.0 10*3/uL 0.0-0.1 Comprehensive metabolic panel - 12/21/17 08:05 Serum or plasma sodium measurement (moles/volume) 143 mmol/L 135-145 Serum or plasma potassium measurement (moles/volume) 3.7 mmol/L 3.6-5.0 Serum or plasma chloride measurement (moles/volume) 114 mmol/L 98-107 Carbon dioxide 19 mmol/L 21-32 Serum or plasma anion gap determination (moles/volume) 10 mmol/L 5-14 Serum or plasma urea nitrogen measurement (mass/volume) 47 mg/dL 7-18 Serum or plasma creatinine measurement (mass/volume) 1.09 mg/dL 0.60-1.30 Serum or plasma urea nitrogen/creatinine mass ratio 43 NRG Serum or plasma creatinine measurement with calculation of estimated glomerular filtration rate > NRG Serum or plasma glucose measurement (mass/volume) 80 mg/dL 70-105 Serum or plasma calcium measurement (mass/volume) 8.4 mg/dL 8.5-10.1 Serum or plasma total bilirubin measurement (mass/volume) 0.7 mg/dL 0.1-1.0 Serum or plasma alkaline phosphatase measurement (enzymatic activity/volume) 70 U/L 40-136 Serum or plasma aspartate aminotransferase measurement (enzymatic activity/ volume) 41 U/L 5-34 Serum or plasma alanine aminotransferase measurement (enzymatic activity/volume ) 22 U/L 0-55 Serum or plasma protein measurement (mass/volume) 6.5 g/dL 6.4-8.2 Serum or plasma albumin measurement (mass/volume) 3.4 g/dL 3.2-4.5 Blood manual differential performed detection - 01/23/18 08:05 Blood monocytes/100 leukocytes 11 % NR Manual blood segmented neutrophils/100 leukocytes 55 % NRG Blood band neutrophils/100 leukocytes 3 % NRG Manual blood lymphocytes/100 leukocytes 30 % NRG Manual eosinophils/100 leukocytes in nose 0 % NRG Manual blood basophils/100 leukocytes 1 % NRG Blood ovalocytes detection by light microscopy SLIGHT NR Whole blood basic metabolic panel - 12/22/17 07:06 Serum or plasma sodium measurement (moles/volume) 141 mmol/L 135-145 Serum or plasma potassium measurement (moles/volume) 3.8 mmol/L 3.6-5.0 Serum or plasma chloride measurement (moles/volume) 111 mmol/L 98-107 Carbon dioxide 21 mmol/L 21-32 Serum or plasma anion gap determination (moles/volume) 9 mmol/L 5-14 Serum or plasma urea nitrogen measurement (mass/volume) 24 mg/dL 7-18 Serum or plasma creatinine measurement (mass/volume) 0.73 mg/dL 0.60-1.30 Serum or plasma urea nitrogen/creatinine mass ratio 33 NRG Serum or plasma creatinine measurement with calculation of estimated glomerular filtration rate > NRG Serum or plasma glucose measurement (mass/volume) 85 mg/dL 70-105 Serum or plasma calcium measurement (mass/volume) 8.0 mg/dL 8.5-10.1 Complete blood count (CBC) with automated white blood cell (WBC) differential - 12/22/17 07:06 Blood leukocytes automated count (number/volume) 5.2 10*3/uL 4.3-11.0 Blood erythrocytes automated count (number/volume) 3.91 10*6/uL 4.35-5.85 Venous blood hemoglobin measurement (mass/volume) 12.0 g/dL 13.3-17.7 Blood hematocrit (volume fraction) 35 % 40-54 Automated erythrocyte mean corpuscular volume 89 [foz_us] 80-99 Automated erythrocyte mean corpuscular hemoglobin (mass per erythrocyte) 31 pg 25-34 Automated erythrocyte mean corpuscular hemoglobin concentration measurement ( mass/volume) 34 g/dL 32-36 Automated erythrocyte distribution width ratio 14.5 % 10.0-14.5 Automated blood platelet count (count/volume) 119 10*3/uL 130-400 Automated blood platelet mean volume measurement 10.1 [foz_us] 7.4-10.4 Automated blood neutrophils/100 leukocytes 54 % 42-75 Automated blood lymphocytes/100 leukocytes 25 % 12-44 Blood monocytes/100 leukocytes 18 % 0-12 Automated blood eosinophils/100 leukocytes 3 % 0-10 Automated blood basophils/100 leukocytes 0 % 0-10 Blood neutrophils automated count (number/volume) 2.8 10*3 1.8-7.8 Blood lymphocytes automated count (number/volume) 1.3 10*3 1.0-4.0 Blood monocytes automated count (number/volume) 1.0 10*3 0.0-1.0 Automated eosinophil count 0.2 10*3/uL 0.0-0.3 Automated blood basophil count (count/volume) 0.0 10*3/uL 0.0-0.1 Encounters ACCT No. Visit Date/Time Discharge Status Pt. Type Provider Facility Loc./Unit Complaint [id number] 12/30/2017 10:00:00 12/30/2017 10:46:00 DIS Outpatient BERNARD PELAYO MD [facility] PREOP COLONOSCOPY [id number] 12/20/2017 16:50:00 12/23/2017 14:08:00 DIS Inpatient JUSTIN DUNBAR DO [facility] 4TH SBO,ACUTE RENAL FAILURE,H/O GASTRIC ULCERS [id number] 05/20/2017 11:43:00 05/20/2017 23:59:59 CLS Outpatient JUSTIN DUNBAR DO [facility] RAD TRAUMA TO LFT FOOT [id number] 12/16/2016 16:14:00 12/19/2016 12:45:00 DIS Inpatient JUSTIN DUNBAR DO [facility] 4TH PNEUMONIA RLL, VOMITING [id number] 02/26/2014 09:00:00 02/26/2014 23:59:59 CLS Outpatient BERNARD PELAYO MD [facility] NUTRITION RESS [id number] 02/16/2014 08:09:00 02/16/2014 23:59:59 CLS Outpatient BERNARD PELAYO MD [facility] PREOP RESOLVE NUTRITION [id number] 09/12/2013 08:57:00 09/12/2013 23:59:59 CLS Outpatient [id number] 08/08/2013 11:36:00 08/30/2013 15:55:00 DIS Inpatient MANJINDER JUSTIN WALLACE [facility] 4TH SEPTIC SHOCK,RT LUNG PNA, UTI [id number] 01/07/2018 08:00:00 PEN Preadmit BERNARD PELAYO MD [facility] SDC GALLSTONES [id number] 01/03/2018 08:38:00 ACT Outpatient BERNARD PELAYO MD [facility] ENDO IRREGULAR BM [id number] 01/03/2018 05:35:00 ACT Outpatient BERNARD PELAYO MD [facility] PREOP GALLSTONES
[2018-01-03 08:50] VITALS: BP 105/81
[2018-01-03] MEDS ORDERED: NS IV 500 ML 500 ML IV PRN (08:50)
--- NOTE | 2018-01-03 08:55 | Conscious Sedation/ASA ---
Conscious Sedation Pre-Proced Time Reviewed: 08:55 ASA Class: 3 Airway Mallampati Classification: ([place] appropriate class) I. II. III, IV Lungs Heart ASA score ASA 1: a normal healthy patient ASA 2: a patient with a mild systemic disease (mid diabetes, controlled hypertension, obesity ASA 3: a patient with a severe systemic disease that limits activity (angina , COPD, prior Myocardial infarction) ASA 4: a patient with an incapacitating disease that is a constant threat to life (CHF, renal failure) ASA 5: a moribund patient not expected to survive 24 hrs. (ruptured aneurysm) ASA 6: a declared brain patient whose organs are being harvested. For emergent operations, add the letter E after the classification Grade 2 Sedation Plan: Plan communicated to team members, Discussed options with patient/fam Note The patient is an appropriate candidate to undergo the planned procedure, sedation, and anesthesia. The patient immediately re-assessed prior to indication. BERNARD PELAYO MD Jan 03, 2018 8:55 am
--- NOTE | 2018-01-03 08:55 | History & Physicial ---
History of Present Illness History of Present Illness Reason for visit/HPI To undergo colonoscopy for screening purposes follow-up on recent admission with partial bowel obstruction. In addition, he has gallstones that would be addressed by cholecystectomy using minimally invasive technique and robotic assistance to this week. Date of Admission 01/03/18 Date Seen by Provider: Jan 03, 2018 Time Seen by Provider: 08:52 I consulted on this patient on 01/03/18 08:52 Attending Physician Bernard Pelayo MD Admitting Physician Ben Parker DO Consult Allergies and Home Medications Allergies Coded Allergies: No Known Drug Allergies (Unverified , 08/08/13) Home Medications Acetaminophen 325 Mg Tablet, 650 MG PO Q6H PRN for MILD PAIN/TEMP, (Reported) TAKES 2 (325MG) TABLETS Calcium Carbonate 200 Mg Tab.chew, 500 MG PO UD PRN for INDIGESTION, (Reported) MAX OF 10 500MG TABS IN 1 DAY Carbamide Peroxide 15 Ml Drops, 5 DROPS EACH EAR UD, (Reported) INSTILL 5 DROPS INTO BOTH EARS TWICE DAILY X 10 DAYS NOW AND PRIOR TO NEXT APPOINTMENT NEEDED Diphenhydramine HCl 25 Mg Capsule, 25 MG PO Q6H PRN for ALLERGY SYMPTOMS, ( Reported) Diphenhydramine HCl 25 Mg Capsule, 50 MG PO Q6H PRN for ALLERGIC REACTIONS, ( Reported) Eucalyptus/Menthol 1 Each Lozenge, 1 LOZENGE MM Q1H PRN for COUGH, (Reported) MAX 8 DROPS PER DAY Guaifenesin/Dextromethorphan 5 Ml Syrup, 10 ML PO Q4H PRN for COUGH, (Reported) Hydrocortisone 28.35 Gm Oint...g., TP TID PRN for RASH, (Reported) 1% CREAM Loperamide HCl 2 Mg Capsule, 2 MG PO UD PRN for DIARRHEA, (Reported) Magnesium Hydroxide 400 Mg/5 Ml Oral.susp, 30 ML PO BID PRN for CONSTIPATION- 7TH LINE, (Reported) Multivitamin 1 Each Tablet, 1 TAB PO DAILY, (Reported) Mupirocin 22 Gm Oint...g., TOP BID, (Reported) APPLY TOPICALLY TO GREAT TOE ON THE LEFT FOOT Neomycin Epperson/Bacitrac Zn/Poly 28.3 Gm Oint...g., TP BID PRN for CUTS/ABRASIONS, ( Reported) Olanzapine 10 Mg Tablet, 10 MG PO HS, (Reported) Pantoprazole Sodium 40 Mg Tablet.dr, 40 MG PO DAILY, (Reported) Polyethylene Glycol 3350 17 Gm Powd.pack, 17 GM PO DAILY, (Reported) Psyllium Husk 0.52 Gm Capsule, 0.52 GM PO DAILY, (Reported) Sucralfate 1 Gm Tablet, 1 GM PO ACHS, (Reported) Tetrahydrozoline HCl 15 Ml Drops, 2 DROPS OU QID PRN for REDNESS/IRRITATION, ( Reported) Past Oxsrndk-Etyydd-Dghrzg Hx Patient Social History Marrital Status: single Employed/Student: unemployed Recent Foreign Travel: No Contact w/other who traveled: No Recent Hopitalizations: No Immunizations Up To Date Tetanus Booster (TDap): Unknown Date of Pneumonia Vaccine: Aug 29, 2009 Date of Influenza Vaccine: Sep 29, 2017 Seasonal Allergies Seasonal Allergies: No Surgeries Yes Respiratory No Currently Using CPAP: No Currently Using BIPAP: No Cardiovascular No Neurological Yes (MR) Seizure Disorder Reproductive System Hx Reproductive Disorders: No Sexually Transmitted Disease: No HIV/AIDS: No Genitourinary No Gastrointestinal Yes Gastroesophageal Reflux, Gastrointestinal Bleed, Chronic Constipation, Esophagitis, Ulcer, Gall Bladder Disease Musculoskeletal Yes (foot deforminties) Endocrine History of Endocrine Disorders: No HEENT History of HEENT Disorders: No Loss of Vision: Denies Cancer No Psychosocial History of Psychiatric Problem: Yes Behavioral Health Disorders: Anxiety Integumentary History of Skin or Integumenta: No Blood Transfusions History of Blood Disorders: No Family Medical History Significant Family History: No Pertinent Family Hx Family Hx: Patient reports no known family medical history. Constitutional: no symptoms reported EENTM: no symptoms reported Respiratory: no symptoms reported Cardiovascular: no symptoms reported Gastrointestinal: see HPI Genitourinary: no symptoms reported Musculoskeletal: no symptoms reported Skin: no symptoms reported Psychiatric/Neurological: See HPI Physical Exam Vital Signs Capillary Refill : General Appearance: Anxious HEENT: TMs Normal Neck: Normal Inspection Respiratory: Lungs Clear Cardiovascular: Regular Rate, Rhythm Gastrointestinal: Non Tender, Soft Rectal: Deferred Extremity: Other Neurologic/Psychiatric: Other Skin: Warm/Dry Comments changes of chronic mental retardation. Some contractures of the extremities. Previous PEG tube placement on the abdomen evident Assessment/Plan Assessment and Plan gentleman with recent symptoms of partial obstruction, resolved. Screening for colon cancer. Gallstones found to be addressed by cholecystectomy Problems: BERNARD PELAYO MD Jan 03, 2018 8:55 am
[2018-01-03] MEDS ORDERED: MIDAZOLAM 2 MG/2 ML (VERSED) VIAL ONE ×3 (09:11)
[2018-01-03] MEDS ORDERED: fentaNYL INJECTION 100 MCG/2 ML AMP ONE (09:11)
[2018-01-03] MEDS: fentaNYL INJECTION 100 MCG/2 ML AMP IVP PRN ×2 (09:18→09:26)
[2018-01-03] MEDS: MIDAZOLAM 2 MG/2 ML (VERSED) VIAL IVP PRN ×2 (09:20→09:28)
--- NOTE | 2018-01-03 09:54 | Endo Procedure Record ---
Endo Procedure Report Date of Procedure Last Colonoscopy: Yes (UNSURE) Jan 03, 2018 Surgeon (s) BERNARD PELAYO MD Post Procedure/Op Diagnosis Poor bowel prep Procedure Performed Colonoscopy to cecum Description of Procedure Anesthesia Type: Conscious Sedation Specimen(s) collected/removed none Description of the Procedure indication for procedure: This gentleman was brought in for colonoscopy to evaluate a change in his bowel habits. Informed consent was obtained from his legal guardian, due to mental deficiency. Description of procedure: He was placed in left lateral position and his vital signs were monitored. Conscious sedation was achieved using Versed and fentanyl. Digital rectal examination was unremarkable. The colonoscope was then introduced into the rectum and advanced to the cecum Quality of bowel preparation was rather poor The scope was then withdrawn slowly and the mucosa examined to the degree of possible visualization. There was no obvious abnormality He tolerated the procedure well and was taken back to the nursing area in a stable condition Impression: Change in bowel habits. Normal colonoscopy to the extend of visibility Note: He has gallstones and cholecystectomy is scheduled for this Wednesday Copies To: JUSTIN DUNBAR XAVIER M MD Jan 03, 2018 9:54 am
--- NOTE | 2018-01-03 09:55 | Discharge Inst-Simple/Standard ---
Discharge Inst-Standard Discharge Medications New, Converted or Re-Newed RX: Other Patient Instructions/Follow Up Plan of Care/Instructions/FU: To return this Wednesday, 07 January for cholecystectomy Activity as Tolerated: Yes Discharge Diet: No Restrictions BERNARD PELAYO MD Jan 03, 2018 9:55 am
[2018-01-03 10:10] VITALS: BP 99/64
[2018-01-03 10:50] VITALS: BP 119/87
== END 2018-01-03 10:55 | disposition home or self-care (01) ==
LOC: ENDO 08:38
PROVIDERS: ATTEND Surgery
DX: Z12.11 Encounter for screening for malignant neoplasm of colon (principal); R19.4 Change in bowel habit; K80.20 Calculus of gallbladder without cholecystitis without obstruction; G40.909 Epilepsy, unspecified, not intractable, without status epilepticus; F79 Unspecified intellectual disabilities; K21.9 Gastro-esophageal reflux disease without esophagitis; F41.9 Anxiety disorder, unspecified; Z79.899 Other long term (current) drug therapy

== ENCOUNTER 2018-01-07 06:30 | Day surgery (SDC) | payer MEDICARE, MEDICAID ==
[~2018-01-07] VITALS: Ht 167.6 cm; Wt 60.8 kg
[2018-01-07] MEDS ORDERED: metroNIDAZOLE 500MG/100ML IVPB 100 ML ONE (06:58)
[2018-01-07] MEDS ORDERED: DEXAMETHASONE 10 MG/ML (DECADRON) 1 ML VIAL ONE (06:58)
[2018-01-07] MEDS ORDERED: ROCURONIUM 50 MG/5 ML (ZEMURON) VIAL IV ONE (06:58)
[2018-01-07] MEDS ORDERED: proPOfol 200 MG/20 ML (DIPRIVAN) VIAL IV ONE (06:58)
[2018-01-07] MEDS ORDERED: NS (IVPB) 50 ML ONE (06:58)
[2018-01-07] MEDS ORDERED: SEVOFLURANE (ULTANE) 15 ML INHAL SOLN ONE ×7 (06:58→09:47)
[2018-01-07] MEDS ORDERED: LIDOCAINE PF 2% 5 ML (XYLOCAINE) VIAL ONE (06:58)
[2018-01-07] MEDS ORDERED: FAMOTIDINE 20MG/2ML IV (PEPCID) ONE (06:58)
[2018-01-07] MEDS ORDERED: ONDANSETRON 4 MG/2 ML (SDV) Z0FRAN ONE (06:58)
[2018-01-07] MEDS ORDERED: ceFAZolin 1,000 MG (ANCEF) VIAL ONE (06:58)
[2018-01-07] MEDS ORDERED: MIDAZOLAM 2 MG/2 ML (VERSED) VIAL ONE (06:59)
[2018-01-07] MEDS ORDERED: fentaNYL INJECTION 100 MCG/2 ML AMP ONE ×2 (06:59→09:44)
[2018-01-07] MEDS: LACTATED RINGERS 1,000 ML IV PRN ×2 (07:00→09:04)
[2018-01-07 07:08] VITALS: BP 120/80
[2018-01-07] MEDS ORDERED: BUPIVACAINE 0.25% 30 ML (SENSORCAINE) VIAL ONE ×2 (07:12→07:13)
[2018-01-07] MEDS ORDERED: LIDOCAINE/EPI 1%-1:200,000 (XYLOCAINE) 10 ML VIAL ONE ×2 (07:12→07:13)
[2018-01-07] MEDS ORDERED: ceFAZolin INJECTION 1,000 MG in NS (IVPB) 50 ML IV ONE (07:15)
[2018-01-07] MEDS ORDERED: FAMOTIDINE 20MG/2ML IV (PEPCID) IV ONE (07:15)
[2018-01-07] MEDS ORDERED: metroNIDAZOLE 500MG/100ML IVPB 100 ML IV ONE (07:15)
[2018-01-07] MEDS ORDERED: BUP/EPI 0.5% 1:200,000 (SENSORCAINE) 30 ML VIAL ONE (07:27)
[2018-01-07] MEDS ORDERED: BUP/EPI 0.5% 1:200,000 (SENSORCAINE) 30 ML VIAL INJ ONE (07:45)
--- NOTE | 2018-01-07 08:01 | Progress Note-Pre Operative ---
Pre-Operative Progress Note H&P Reviewed The H&P was reviewed, patient examined and no changes noted. Date Seen by Provider: Jan 03, 2018 Time Seen by Provider: 09:55 Date H&P Reviewed: Jan 07, 2018 Time H&P Reviewed: 08:00 Pre-Operative Diagnosis: Gallstones BERNARD PELAYO MD Jan 07, 2018 8:01 am
[2018-01-07] MEDS ORDERED: NEOSTIGMINE (BLOXIVERZ ) 1 MG/1ML 10 ML VIAL ONE (08:42)
[2018-01-07] MEDS ORDERED: GLYCOPYRROLATE 0.2 MG/ML (ROBINUL) 2 ML VIAL ONE (08:42)
[2018-01-07] MEDS ORDERED: PHENYLEPHRINE 100 MCG/ML 10 ML (ANESTHESIA) SYR ONE (08:42)
[2018-01-07] MEDS ORDERED: ACHD5005 PO (09:50)
--- NOTE | 2018-01-07 09:50 | Operative Report ---
Operative Report Date of Procedure/Surgery Jan 07, 2018 Surgeon (s) BERNARD PELAYO MD [employer] (s): N/A Post-Operative Diagnosis 1. Gallstones 2. Chronic cholecystitis Procedure Performed Robotic-assisted cholecystectomy Description of Procedure Anesthesia Type: General Estimated blood loss (mL): Minimal Specimen(s) collected/removed Gallbladder with stones Description of the Procedure Indication for the procedure: This gentleman was found to have gallstones edges of chronic cholecystitis. Therefore, cholecystomy using minimally invasive technique with the robotic assistance was offered. Informed consent was obtained after reviewing the procedure with his guardian Description of the procedure: He was placed supine on the operating table and general anesthesia induced using an endotracheal tube. A gram of Ancef and 500 mg of Flagyl were administered intravenously as prophylaxis against wound infection. Sequential compression devices were placed around his legs, to minimize the risk of venous thrombosis. Abdomen was prepared and draped in the usual sterile manner. Pneumoperitoneum was established using a Veress needle introduced over the left subcostal region. Intra-abdominal pressure was maintained at 15 mmHg using carbon dioxide insufflation. A 5 mm trocar was placed and anatomy visualized using the conventional, laparoscope. There was no adherence of the stomach to the anterior abdominal wall(previous PEG tube placement). Under direct view, I placed a 12 mm trocar over the infraumbilical region, followed by 2, 8 mm trocars over each side of the abdomen. We, then switched to the robotic system. The trocars were docked in place. Omentum was densely adherent to the gallbladder, which was initially obscured; by careful dissection, we were able to identify the gallbladder. The fundus was retracted cephalad and thickened tissue around the body of the gallbladder incised using hook cautery, leading to the identification of the cystic duct and artery. Both were divided between locking clips. Cholecystectomy was then completed using hook cautery. Gallbladder was then placed in an Endo catch bag and removed via the subumbilical trocar site. Subsequently, linea alba was closed using #1 Vicryl under direct view. The fascia over the 8 mm incisions was also closed using the same suture material. Skin incisions were closed using 4-0 Vicryl, in a subcuticular fashion A combination 1 percent lidocaine with epinephrine and 0.5 percent Marcaine dictated on the incisions both pre-preemptively and at the conclusion of the operation He tolerated the procedure well, was extubated in the operating room and taken to the recovery room in a stable condition. Findings of the Procedure See op report Allergies and Home Medications Allergies Coded Allergies: No Known Drug Allergies (Unverified , 08/08/13) Home Medications Acetaminophen 325 Mg Tablet, 650 MG PO Q6H PRN for MILD PAIN/TEMP, (Reported) TAKES 2 (325MG) TABLETS Calcium Carbonate 200 Mg Tab.chew, 500 MG PO UD PRN for INDIGESTION, (Reported) MAX OF 10 500MG TABS IN 1 DAY Diphenhydramine HCl 25 Mg Capsule, 25 MG PO Q6H PRN for ALLERGY SYMPTOMS, ( Reported) Diphenhydramine HCl 25 Mg Capsule, 50 MG PO Q6H PRN for ALLERGIC REACTIONS, ( Reported) Eucalyptus/Menthol 1 Each Lozenge, 1 LOZENGE MM Q1H PRN for COUGH, (Reported) MAX 8 DROPS PER DAY Guaifenesin/Dextromethorphan 5 Ml Syrup, 10 ML PO Q4H PRN for COUGH, (Reported) Hydrocortisone 28.35 Gm Oint...g., TP TID PRN for RASH, (Reported) 1% CREAM Loperamide HCl 2 Mg Capsule, 2 MG PO UD PRN for DIARRHEA, (Reported) Magnesium Hydroxide 400 Mg/5 Ml Oral.susp, 30 ML PO BID PRN for CONSTIPATION- 7TH LINE, (Reported) Multivitamin 1 Each Tablet, 1 TAB PO DAILY, (Reported) Mupirocin 22 Gm Oint...g., TOP BID, (Reported) APPLY TOPICALLY TO GREAT TOE ON THE LEFT FOOT Neomycin Epperson/Bacitrac Zn/Poly 28.3 Gm Oint...g., TP BID PRN for CUTS/ABRASIONS, ( Reported) Olanzapine 10 Mg Tablet, 10 MG PO HS, (Reported) Pantoprazole Sodium 40 Mg Tablet.dr, 40 MG PO DAILY, (Reported) Polyethylene Glycol 3350 17 Gm Powd.pack, 17 GM PO DAILY, (Reported) Psyllium Husk 0.52 Gm Capsule, 0.52 GM PO DAILY, (Reported) Sucralfate 1 Gm Tablet, 1 GM PO ACHS, (Reported) Tetrahydrozoline HCl 15 Ml Drops, 2 DROPS OU QID PRN for REDNESS/IRRITATION, ( Reported) BERNARD PELAYO MD Jan 07, 2018 9:49 am
--- NOTE | 2018-01-07 09:51 | Discharge Inst-Simple/Standard ---
Discharge Inst-Standard Discharge Medications New, Converted or Re-Newed RX: RX on Chart Patient Instructions/Follow Up Plan of Care/Instructions/FU: Band-Aids off in 48 hours. Incentive spirometry. Follow-up in 3 weeks. Activity as Tolerated: Yes Discharge Diet: No Restrictions BERNARD PELAYO MD Jan 07, 2018 9:51 am
[2018-01-07] MEDS ORDERED: morphine INJ 10 MG/ML 1ML (SYR OR VIAL) IVP PRN (10:15)
[2018-01-07] MEDS ORDERED: ONDANSETRON 4 MG/2 ML (SDV) Z0FRAN IVP PRN (10:15)
[2018-01-07 11:00] VITALS: BP 129/80
[2018-01-07 11:30] VITALS: BP 129/78
[2018-01-07 12:00] VITALS: BP 133/79
[2018-01-07 12:37] VITALS: BP 133/79
== END 2018-01-07 12:37 | disposition home or self-care (01) ==
LOC: SDC 06:30
PROVIDERS: ATTEND Surgery
DX: K80.10 Calculus of gallbladder with chronic cholecystitis without obstruction (principal); G40.909 Epilepsy, unspecified, not intractable, without status epilepticus; K21.9 Gastro-esophageal reflux disease without esophagitis; K59.00 Constipation, unspecified; F41.9 Anxiety disorder, unspecified; F79 Unspecified intellectual disabilities; Z79.899 Other long term (current) drug therapy

== ENCOUNTER 2018-03-23 09:16 | Emergency (ER) | payer MEDICARE, MEDICAID ==
[~2018-03-23] VITALS: Ht 167.6 cm; Wt 63.0 kg
[~2018-03-23 09:16] MED LIST changes: +ACHD5005 PO
[2018-03-23 10:37] LABS: BASOPHILS % (AUTO) 1 % (0-10); EOSINOPHILS # (AUTO) 0.1 10^3/uL (0.0-0.3); EOSINOPHILS % (AUTO) 2 % (0-10); HEMATOCRIT 41 % (40-54); HEMOGLOBIN 13.8 G/DL (13.3-17.7); LYMPHOCYTES # (AUTO) 1.2 X 10^3 (1.0-4.0); LYMPHOCYTES % (AUTO) 20 % (12-44); MEAN CORPUSCULAR HEMOGLOBIN 30 PG (25-34); MEAN CORPUSCULAR HGB CONC 34 G/DL (32-36); MEAN CORPUSCULAR VOLUME 87 FL (80-99); MEAN PLATELET VOLUME 10.5 FL (7.4-10.4); MONOCYTES # (AUTO) 1.1 X 10^3 (0.0-1.0); MONOCYTES % (AUTO) 19 % (0-12); NEUTROPHILS # (AUTO) 3.5 X 10^3 (1.8-7.8); NEUTROPHILS % (AUTO) 59 % (42-75); PLATELET COUNT 234 10^3/uL (130-400); RED BLOOD COUNT 4.64 10^6/uL (4.35-5.85); RED CELL DISTRIBUTION WIDTH 15.3 % (10.0-14.5); WHITE BLOOD COUNT 5.9 10^3/uL (4.3-11.0)
[2018-03-23 10:56] LABS: BILIRUBIN,TOTAL 0.7 MG/DL (0.1-1.0); CALCIUM 9.6 MG/DL (8.5-10.1); CREATININE SERUM 1.24 MG/DL (0.60-1.30); POTASSIUM 3.7 MMOL/L (3.6-5.0); TOTAL PROTEIN 7.7 GM/DL (6.4-8.2)
[2018-03-23 11:20] LABS: ANISOCYTOSIS SLIGHT; BAND NEUTROPHILS 3 %; BASOPHILS % (MANUAL) 1 %; EOSINOPHILS % (MANUAL) 0 %; LYMPHOCYTES % (MANUAL) 22 %; MONOCYTES % (MANUAL) 19 %; NEUTROPHILS % (MANUAL) 55 %
--- NOTE | 2018-03-23 11:55 | Diagnostic Imaging Report ---
Indication: Constipation. Time of exam: 11:57 AM Comparison is made with prior abdominal radiograph from 12/23/2017. Findings: There is some mild to moderate gaseous distention of small bowel loops in the central abdomen. There also appears to be gas within the colon. No significant bowel wall thickening is seen. No pneumatosis is identified. No definite free air is detected. No significant stool load is detected. Impression: There is some mild gaseous distention of small bowel loops central abdomen, similar to examination from November 2017. No significant constipation is seen. Dictated by: Dictated on workstation # [id number]
--- NOTE | 2018-03-23 12:30 | ED GI ---
General Chief Complaint: Abdominal/GI Problems Stated Complaint: UNABLE TO BM,UNABLE TO EAT Nursing Triage Note: pt accompanied to ed with david guardado worker. pt ambulated to rm 1 w/o difficulties. debby states he is unsure of when the pt had a last bm. debby states pt has not been eating for the last two days. pt unable to verbalize pain but it guarding abdomen. Sepsis Screen: No Definite Risk Source of Information: Caregiver Exam Limitations: No Limitations History of Present Illness Date Seen by Provider: Mar 23, 2018 Time Seen by Provider: 11:27 Initial Comments The patient is a 63-year-old intellectually disabled white male and resident of [place]. He has been eating poorly for several days. He has had trouble with constipation and takes MiraLAX on a daily basis. It is not known exactly when he had his last bowel movement. He tells the staff that he wants to eat but then does not when he is provided with food. He is not able to give any useful history relative to time or localized pain Timing/Duration: 4-5 Days Severity/Quality: Mild Location: Generalized Abdomen Allergies and Home Medications Allergies Coded Allergies: No Known Drug Allergies (Unverified , 08/08/13) Home Medications Acetaminophen 325 Mg Tablet, 650 MG PO Q6H PRN for MILD PAIN/TEMP, (Reported) TAKES 2 (325MG) TABLETS Calcium Carbonate 200 Mg Tab.chew, 500 MG PO UD PRN for INDIGESTION, (Reported) MAX OF 10 500MG TABS IN 1 DAY Diphenhydramine HCl 25 Mg Capsule, 25 MG PO Q6H PRN for ALLERGY SYMPTOMS, ( Reported) Diphenhydramine HCl 25 Mg Capsule, 50 MG PO Q6H PRN for ALLERGIC REACTIONS, ( Reported) Eucalyptus/Menthol 1 Each Lozenge, 1 LOZENGE MM Q1H PRN for COUGH, (Reported) MAX 8 DROPS PER DAY Guaifenesin/Dextromethorphan 5 Ml Syrup, 10 ML PO Q4H PRN for COUGH, (Reported) Hydrocodone Bit/Acetaminophen 1 Tab Tab, 1-2 TAB PO 4-6HR PRN for PAIN Prescribed by: BERNARD PELAYO on 01/07/18 0950 Hydrocortisone 28.35 Gm Oint...g., TP TID PRN for RASH, (Reported) 1% CREAM Loperamide HCl 2 Mg Capsule, 2 MG PO UD PRN for DIARRHEA, (Reported) Magnesium Hydroxide 400 Mg/5 Ml Oral.susp, 30 ML PO BID PRN for CONSTIPATION- 7TH LINE, (Reported) Multivitamin 1 Each Tablet, 1 TAB PO DAILY, (Reported) Mupirocin 22 Gm Oint...g., TOP BID, (Reported) APPLY TOPICALLY TO GREAT TOE ON THE LEFT FOOT Neomycin Epperson/Bacitrac Zn/Poly 28.3 Gm Oint...g., TP BID PRN for CUTS/ABRASIONS, ( Reported) Olanzapine 10 Mg Tablet, 10 MG PO HS, (Reported) Pantoprazole Sodium 40 Mg Tablet.dr, 40 MG PO DAILY, (Reported) Polyethylene Glycol 3350 17 Gm Powd.pack, 17 GM PO DAILY, (Reported) Psyllium Husk 0.52 Gm Capsule, 0.52 GM PO DAILY, (Reported) Sucralfate 1 Gm Tablet, 1 GM PO ACHS, (Reported) Tetrahydrozoline HCl 15 Ml Drops, 2 DROPS OU QID PRN for REDNESS/IRRITATION, ( Reported) Patient Home Medication List Home Medication List Reviewed: Yes Review of Systems Constitutional: see HPI Past Qxwvgnl-Nvkzll-Apjsff Hx Patient Social History Alcohol Use: Denies Use Recreational Drug Use: No Smoking Status: Never a Smoker Recent Foreign Travel: No Contact w/Someone Who Travel: No Recent Infectious Disease Expo: No Recent Hopitalizations: No Physical Abuse: No Sexual Abuse: No Immunizations Up To Date Tetanus Booster (TDap): Unknown PED Vaccines UTD: No Date of Pneumonia Vaccine: Aug 29, 2009 Date of Influenza Vaccine: Sep 29, 2017 Seasonal Allergies Seasonal Allergies: No Past Medical History Surgeries: Yes (CYST FROM CHEEK, PEG TUBE) Respiratory: No Currently Using CPAP: No Currently Using BIPAP: No Cardiac: No Neurological: Yes (MR) Seizure Disorder Reproductive Disorders: No Sexually Transmitted Disease: No HIV/AIDS: No Genitourinary: No Gastrointestinal: Yes Gastroesophageal Reflux, Gastrointestinal Bleed, Chronic Constipation, Esophagitis, Ulcer, Gall Bladder Disease Musculoskeletal: Yes (foot deforminties) Endocrine: No HEENT: No Loss of Vision: Denies Cancer: No Psychosocial: Yes Anxiety Nursing Suicide Risk Score: 0 Integumentary: No Blood Disorders: No Family Medical History Patient reports no known family medical history. No Pertinent Family Hx Physical Exam Vital Signs Vital Signs - First Documented 03/23/18 09:45 Temp 98.6 Pulse 97 Resp 20 B/P (MAP) 104/69 (81) O2 Delivery Room Air Capillary Refill : Less Than 3 Seconds General Appearance: mild distress HEENT: normal ENT inspection Neck: full range of motion Respiratory: chest non-tender, lungs clear, normal breath sounds, no respiratory distress, no accessory muscle use Cardiovascular: normal peripheral pulses, regular rate, rhythm, no edema, no gallop, no JVD, no murmur Gastrointestinal: abnormal bowel sounds (bowel sounds are hypoactive. The patient does not reveal guarding or rebound but tries to remove my hands when palpating.) Progress/Results/Core Measures Lab Results Laboratory Tests Test 03/23/18 10:28 Range/Units White Blood Count 5.9 4.3-11.0 10^3/uL Red Blood Count 4.64 4.35-5.85 10^6/uL Hemoglobin 13.8 13.3-17.7 G/DL Hematocrit 41 40-54 % Mean Corpuscular Volume 87 80-99 FL Mean Corpuscular Hemoglobin 30 25-34 PG Mean Corpuscular Hemoglobin Concent 34 32-36 G/DL Red Cell Distribution Width 15.3 H 10.0-14.5 % Platelet Count 234 130-400 10^3/uL Mean Platelet Volume 10.5 H 7.4-10.4 FL Neutrophils (%) (Auto) 59 42-75 % Lymphocytes (%) (Auto) 20 12-44 % Monocytes (%) (Auto) 19 H 0-12 % Eosinophils (%) (Auto) 2 0-10 % Basophils (%) (Auto) 1 0-10 % Neutrophils # (Auto) 3.5 1.8-7.8 X 10^3 Lymphocytes # (Auto) 1.2 1.0-4.0 X 10^3 Monocytes # (Auto) 1.1 H 0.0-1.0 X 10^3 Eosinophils # (Auto) 0.1 0.0-0.3 10^3/uL Basophils # (Auto) 0.0 0.0-0.1 10^3/uL Neutrophils % (Manual) 55 % Lymphocytes % (Manual) 22 % Monocytes % (Manual) 19 % Eosinophils % (Manual) 0 % Basophils % (Manual) 1 % Band Neutrophils 3 % Anisocytosis SLIGHT Sodium Level 142 135-145 MMOL/L Potassium Level 3.7 3.6-5.0 MMOL/L Chloride Level 108 H 98-107 MMOL/L Carbon Dioxide Level 21 21-32 MMOL/L Anion Gap 13 5-14 MMOL/L Blood Urea Nitrogen 52 H 7-18 MG/DL Creatinine 1.24 0.60-1.30 MG/DL Estimat Glomerular Filtration Rate 59 BUN/Creatinine Ratio 42 Glucose Level 112 H 70-105 MG/DL Calcium Level 9.6 8.5-10.1 MG/DL Total Bilirubin 0.7 0.1-1.0 MG/DL Aspartate Amino Transf (AST/SGOT) 19 5-34 U/L Alanine Aminotransferase (ALT/SGPT) 12 0-55 U/L Alkaline Phosphatase 87 40-136 U/L Total Protein 7.7 6.4-8.2 GM/DL Albumin 4.0 3.2-4.5 GM/DL My Orders Orders - ANASTASIIA CORTES MD Cbc With Automated Diff (03/23/18 10:09) Comprehensive Metabolic Panel (03/23/18 10:09) Ua Culture If Indicated (03/23/18 10:09) Manual Differential (03/23/18 10:28) Abdomen/Kub 1view (03/23/18 11:26) Vital Signs/I&O 03/23/18 09:45 Temp 98.6 Pulse 97 Resp 20 B/P (MAP) 104/69 (81) O2 Delivery Room Air Blood Pressure Mean: 81 Departure Communication (Admissions) The KUB shows distention of the small bowel without evidence of obstruction. There is also gas in the colon and some stool in the rectum. This is very similar to a KUB done here in November. Impression Primary Impression: hypomotility Disposition: HOME, SELF-CARE Condition: Stable/Unchanged Departure-Patient Inst. Decision time for Depature: 12:31 Referrals: JUSTIN DUNBAR DO (PCP/Family) Primary Care Physician Patient Instructions: Constipation, Adult (DC) Add. Discharge Instructions: All discharge instructions reviewed with patient and/or family. Voiced understanding. Is my understanding the patient takes MiraLAX daily in the morning plus Dulcolax. I would add a second dose of MiraLAX in the evening to today and even for a few additional days until you can document a bowel movement or relief of pain. ANASTASIIA CORTES MD Mar 23, 2018 12:30
[2018-03-23 12:39] VITALS: BP 107/70
== END 2018-03-23 12:39 | disposition home or self-care (01) ==
LOC: EDUNIT# 09:16 → ER 09:18
DX: K31.89 Other diseases of stomach and duodenum (principal); K21.9 Gastro-esophageal reflux disease without esophagitis; F41.9 Anxiety disorder, unspecified; K59.09 Other constipation; Z87.19 Personal history of other diseases of the digestive system; Z98.890 Other specified postprocedural states
CPT/HCPCS: 36415; 74018; 80053; 85007; 85027

== ENCOUNTER 2019-01-20 13:05 | Emergency (ER) | payer MEDICARE, MEDICAID ==
[~2019-01-20] VITALS: Ht 167.6 cm; Wt 63.0 kg
--- NOTE | 2019-01-20 13:44 | NUR ---
WALKED TO ROOM 05 WITHOUT DIFFICULTY WITH SENIOR ERP CONSULTANT FOLLOWING.
--- NOTE | 2019-01-20 14:14 | ED Abdominal Pain ---
General Chief Complaint: Abdominal/GI Problems Stated Complaint: N/V Nursing Triage Note: PATIENT AMBULATORY TO ER WITH CAREGIVER WITH COMPLAINT OF NOT EATING WELL SINCE WEDNESDAY AND EPISODES OF VOMITING. CAREGIVER IS UNABLE TO REPORT HOW MANY EPISODES OF VOMITING AND IF HE HAS HAD ANY VOMITING TODAY. PATIENT IS DEVELOPMENTALLY DELAYED, HX OF MENTAL RETARDATION, AND UNABLE TO GIVE ANY INFORMATION ON HOW HE FEELS AND WHAT SYMPTOMS HE IS HAVING TODAY. PATIENT RESIDES AT [facility]. Sepsis Screen: No Definite Risk Source of Information: Caregiver Exam Limitations: Other (diagnosed with MR) (BERNARDO HANLEY STUDENT) Source of Information: Caregiver Exam Limitations: Other (diagnosed with MR) (TALHA GILL MD) History of Present Illness Date Seen by Provider: Jan 20, 2019 Time Seen by Provider: 13:52 Initial Comments 64 y/o M with MR presented from [place] with his caregiver for decreased appetite and vomiting x1 yesterday. His caregiver was one of the staff on Wednesday night and noted that he was not eating well that night, which is unusual for him. She noted that yesterday, he vomited once and refused food throughout the day. He is often constipated, so nursing at the facility tried to give him Miralax, but he refused it. His log from yesterday states that he did have a small bowel movement yesterday. She states that today, he seems to be acting more normally. In the exam room, he is laying on the bed holding his stomach and saying "food" to the staff. Timing/Duration: 1-2 Days Location: Unknown (due to patient's diagnosis of MR, grasping whole abdomen) Activities at Onset: None Modifying Factors: Worsens With Eating Associated Symptoms: No Fever/Chills; Nausea/Vomiting; No Rash; Other ( decreased food and liquid intake, malaise) (BERNARDO HANLEY STUDENT) Initial Comments Difficult history due to patient's MR status. Patient does have history of constipation. Apparently vomited yesterday but not today. He is not eating as well. Staff reports that is improved today. Timing/Duration: 1-2 Days Severity/Quality: Mild Location: Generalized Abdomen, Unknown (due to patient's diagnosis of MR, grasping whole abdomen) Activities at Onset: None Modifying Factors: Worsens With Eating Associated Symptoms: Nausea/Vomiting, Other (decreased food and liquid intake, malaise) (TALHA GILL MD) Allergies and Home Medications Allergies Coded Allergies: No Known Drug Allergies (Unverified , 08/08/13) Home Medications Acetaminophen 325 Mg Tablet, 650 MG PO Q6H PRN for MILD PAIN/TEMP, (Reported) TAKES 2 (325MG) TABLETS Calcium Carbonate 200 Mg Tab.chew, 500 MG PO UD PRN for INDIGESTION, (Reported) MAX OF 10 500MG TABS IN 1 DAY Diphenhydramine HCl 25 Mg Capsule, 25 MG PO Q6H PRN for ALLERGY SYMPTOMS, ( Reported) Diphenhydramine HCl 25 Mg Capsule, 50 MG PO Q6H PRN for ALLERGIC REACTIONS, ( Reported) Eucalyptus/Menthol 1 Each Lozenge, 1 LOZENGE MM Q1H PRN for COUGH, (Reported) MAX 8 DROPS PER DAY Guaifenesin/Dextromethorphan 5 Ml Syrup, 10 ML PO Q4H PRN for COUGH, (Reported) Hydrocodone Bit/Acetaminophen 1 Tab Tab, 1-2 TAB PO 4-6HR PRN for PAIN Prescribed by: BERNARD PELAYO on 01/07/18 0950 Hydrocortisone 28.35 Gm Oint...g., TP TID PRN for RASH, (Reported) 1% CREAM Loperamide HCl 2 Mg Capsule, 2 MG PO UD PRN for DIARRHEA, (Reported) Magnesium Hydroxide 400 Mg/5 Ml Oral.susp, 30 ML PO BID PRN for CONSTIPATION- 7TH LINE, (Reported) Multivitamin 1 Each Tablet, 1 TAB PO DAILY, (Reported) Mupirocin 22 Gm Oint...g., TOP BID, (Reported) APPLY TOPICALLY TO GREAT TOE ON THE LEFT FOOT Neomycin Epperson/Bacitrac Zn/Poly 28.3 Gm Oint...g., TP BID PRN for CUTS/ABRASIONS, ( Reported) Olanzapine 10 Mg Tablet, 10 MG PO HS, (Reported) Pantoprazole Sodium 40 Mg Tablet.dr, 40 MG PO DAILY, (Reported) Polyethylene Glycol 3350 17 Gm Powd.pack, 17 GM PO DAILY, (Reported) Psyllium Husk 0.52 Gm Capsule, 0.52 GM PO DAILY, (Reported) Sucralfate 1 Gm Tablet, 1 GM PO ACHS, (Reported) Tetrahydrozoline HCl 15 Ml Drops, 2 DROPS OU QID PRN for REDNESS/IRRITATION, ( Reported) Patient Home Medication List Home Medication List Reviewed: Yes (BERNARDO HANLEY) Home Medication List Reviewed: Yes (TALHA GILL MD) Review of Systems Review of Systems Constitutional: No fever; malaise, other (ROS difficult to obtain due to diagnosis of MR, ROS as reported by staff observation) EENTM: No Symptoms Reported Respiratory: Denies Cough Gastrointestinal: Constipated (did have 1 small bm yesterday); Denies Diarrhea ; Poor Appetite (for the past 3 days), Poor Fluid Intake, Vomiting (x1 yesterday ) Skin: No lesions, No rash (BERNARDO HANLEY) Constitutional: see HPI Respiratory: No Symptoms Reported Gastrointestinal: See HPI Musculoskeletal: no symptoms reported Skin: no symptoms reported (TALHA GILL MD) Past Auuhivt-Owokef-Gvorha Hx Past Med/Social Hx: Reviewed Nursing Past Med/Soc Hx (BERNARDO HANLEY) Past Med/Social Hx: Reviewed Nursing Past Med/Soc Hx (TALHA GILL MD) Patient Social History Alcohol Use: Denies Use Recreational Drug Use: No Smoking Status: Never a Smoker 2nd Hand Smoke Exposure: No Recent Foreign Travel: No Contact w/Someone Who Travel: No Recent Infectious Disease Expo: No Recent Hopitalizations: No (BERNARDO HANLEY) Immunizations Up To Date Tetanus Booster (TDap): Unknown PED Vaccines UTD: No Date of Pneumonia Vaccine: Aug 29, 2009 Date of Influenza Vaccine: Sep 29, 2017 (BERNARDO HANLEY) Seasonal Allergies Seasonal Allergies: No (BERNARDO HANLEY) Past Medical History Surgeries: Yes (CYST FROM CHEEK, PEG TUBE) Respiratory: No Currently Using CPAP: No Currently Using BIPAP: No Cardiac: No Neurological: Yes (MR) Developmental Disorder, Seizure Disorder Reproductive Disorders: No Sexually Transmitted Disease: No HIV/AIDS: No Genitourinary: No Gastrointestinal: Yes Gastroesophageal Reflux, Gastrointestinal Bleed, Chronic Constipation, Esophagitis, Ulcer, Gall Bladder Disease Musculoskeletal: Yes (foot deforminties) Endocrine: No HEENT: No Loss of Vision: Denies Cancer: No Psychosocial: Yes Anxiety Integumentary: No Blood Disorders: No (BERNARDO HANLEY STUDENT) Family Medical History Reviewed Nursing Family Hx (BERNARDO HANLEY) Reviewed Nursing Family Hx (TALHA GILL MD) Patient reports no known family medical history. No Pertinent Family Hx (NONIKennyDIEGOBERNARDO Clifton MELARA) Physical Exam Vital Signs Vital Signs - First Documented 01/20/19 13:28 Temp 97.0 Pulse 100 Resp 14 B/P (MAP) 140/90 (107) (TALHA GILL MD) Vital Signs Capillary Refill : Less Than 3 Seconds (DAYANBERNARDO Clifton MELARA) Height/Weight/BMI Height: 5'6.00" Weight: 139lbs. 0.0oz. 63.368184op; 21.6 BMI Method:Actual General Appearance: WD/WN, mild distress, other (patient laying in bed grasping his abdomen) HEENT: PERRL/EOMI, pharynx normal Neck: full range of motion, normal inspection Respiratory: chest non-tender, lungs clear, normal breath sounds, no respiratory distress, no accessory muscle use Cardiovascular: regular rate, rhythm, no edema, no JVD, no murmur Gastrointestinal: normal bowel sounds, no organomegaly, no pulsatile mass, guarding (unknown if guarding due to pain or general discomfort with touch) Extremities: normal range of motion, normal inspection, no pedal edema Back: normal inspection, no CVA tenderness, no vertebral tenderness Neurologic/Psychiatric: no motor/sensory deficits, alert, depressed affect Skin: normal color, warm/dry (DAYANBERNARDO Clifton MELARA) General Appearance: WD/WN, no apparent distress (on my exam, patient sitting in chair in no distress he is saying food and go home.), other (patient laying in bed grasping his abdomen) Respiratory: lungs clear, normal breath sounds Cardiovascular: regular rate, rhythm, no murmur Gastrointestinal: non tender, soft, guarding (unknown if guarding due to pain or general discomfort with touch) Extremities: normal range of motion, normal inspection Neurologic/Psychiatric: alert, other (normal for patient per care provider) ( TALHA GILL MD) Progress/Results/Core Measures Results/Orders Lab Results Laboratory Tests Test 2/22/19 15:25 Range/Units White Blood Count 10.3 4.3-11.0 10^3/uL Red Blood Count 4.38 4.35-5.85 10^6/uL Hemoglobin 14.0 13.3-17.7 G/DL Hematocrit 42 40-54 % Mean Corpuscular Volume 95 80-99 FL Mean Corpuscular Hemoglobin 32 25-34 PG Mean Corpuscular Hemoglobin Concent 34 32-36 G/DL Red Cell Distribution Width 13.7 10.0-14.5 % Platelet Count 194 130-400 10^3/uL Mean Platelet Volume 10.5 H 7.4-10.4 FL Neutrophils (%) (Auto) 75 42-75 % Lymphocytes (%) (Auto) 14 12-44 % Monocytes (%) (Auto) 11 0-12 % Eosinophils (%) (Auto) 0 0-10 % Basophils (%) (Auto) 0 0-10 % Neutrophils # (Auto) 7.7 1.8-7.8 X 10^3 Lymphocytes # (Auto) 1.4 1.0-4.0 X 10^3 Monocytes # (Auto) 1.1 H 0.0-1.0 X 10^3 Eosinophils # (Auto) 0.0 0.0-0.3 10^3/uL Basophils # (Auto) 0.0 0.0-0.1 10^3/uL Sodium Level 138 135-145 MMOL/L Potassium Level 4.5 3.6-5.0 MMOL/L Chloride Level 104 98-107 MMOL/L Carbon Dioxide Level 26 21-32 MMOL/L Anion Gap 8 5-14 MMOL/L Blood Urea Nitrogen 28 H 7-18 MG/DL Creatinine 1.18 0.60-1.30 MG/DL Estimat Glomerular Filtration Rate > 60 BUN/Creatinine Ratio 24 Glucose Level 100 70-105 MG/DL Calcium Level 9.8 8.5-10.1 MG/DL Corrected Calcium 9.7 8.5-10.1 MG/DL Total Bilirubin 0.7 0.1-1.0 MG/DL Aspartate Amino Transf (AST/SGOT) 20 5-34 U/L Alanine Aminotransferase (ALT/SGPT) 11 0-55 U/L Alkaline Phosphatase 89 40-136 U/L C-Reactive Protein High Sensitivity 0.48 0.00-0.50 MG/DL Total Protein 7.5 6.4-8.2 GM/DL Albumin 4.1 3.2-4.5 GM/DL Lipase 10 8-78 U/L (TALHA GILL MD) My Orders Orders - TALHA GILL MD Cbc With Automated Diff (01/20/19 13:59) Comprehensive Metabolic Panel (01/20/19 13:59) Hs C Reactive Protein (01/20/19 13:59) Lipase (01/20/19 13:59) Ua Culture If Indicated (01/20/19 13:59) Acute Abd Series (01/20/19 13:59) (TALHA GILL MD) Vital Signs/I&O 01/20/19 13:28 Temp 97.0 Pulse 100 Resp 14 B/P (MAP) 140/90 (107) (TALHA GILL MD) Blood Pressure Mean: 107 Progress Progress Note : Progress Note I have seen and evaluated the patient and agree with above except as indicated. I directed the plan of care. We will check acute abdominal series due to history constipation and to rule out small bowel obstruction. Also get basic labs and UA were able to obtain that. Monitor patient. 1600: Labs pending. We' re unable to get urine studies. X-ray does show colonic moderate stool consistent with constipation. 1629: Labs reviewed. No significant abnormality. Discharged home with return precautions. Caregiver verbalized understanding instructions and agreement with plan. (TALHA GILL MD) Diagnostic Imaging Diagonstic Imaging: Xray Plain Films/CT/US/NM/MRI: abdomen Comments [facility], [place] NAME: KIRT THOMPSON [facility] REC#: [id number] PT STATUS: REG ER : 1955 PHYSICIAN: TALHA GILL MD ADMIT DATE: 01/20/19/ER Draft Date of Exam:01/20/19 ACUTE ABD SERIES INDICATION: Vomiting, poor appetite. FINDINGS: There is an elevated colonic fecal load suggestive of at least moderate constipation. No small bowel dilatation or fluid levels. No free gas. The lungs themselves are clear. There is no failure, effusion, or pneumothorax. IMPRESSION: Colonic constipation. Negative chest. Dictated on workstation # [id number] Dict: 01/20/19 1459 Trans: 01/20/19 1504 [id number] Interpreted by: KELI AGUILAR Electronically signed by: (BERNARDO HANLEY STUDENT) Departure Impression Primary Impression: Diffuse abdominal pain Additional Impression: Colonic constipation Disposition: HOME, SELF-CARE Condition: Improved Departure-Patient Inst. Decision time for Depature: 16:30 (TALHA GILL MD) Referrals: JUSTIN DUNBAR DO (PCP/Family) Primary Care Physician Patient Instructions: Acute Abdomen (Belly Pain), Adult (DC), Constipation, Adult (DC) Add. Discharge Instructions: All discharge instructions reviewed with patient and/or family. Voiced understanding. Increase MiraLAX to twice daily for the next 3 days and then daily thereafter as needed to keep normal stools. Follow-up with your Dr. on Wednesday for recheck and further evaluation. Return for worse pain, weakness, vomiting, breathing problems or other concerns as needed. Encourage plenty of fluids. BERNARDO HANLEY STUDENT Jan 20, 2019 14:14 TALHA GILL MD Jan 20, 2019 16:03
--- OUTSIDE RECORDS SUMMARY | 2019-01-20 14:26 | XMS REPORT | Continuity of Care Document ---
Author Author [facility] Organization [facility] Address Unknown Phone Unavailable Allergies Active Description Code Type Severity Reaction Onset Reported/Identified Relationship to Patient Clinical Status Yes No Known Drug Allergies [id number] Drug Allergy Unknown N/A 08/08/2013 Medications There [...] Z01.818 ENCOUNTER FOR OTHER PREPROCEDURAL EXAMIN 12/30/2017 BERNARD PELAYO MD Ot R19.4 CHANGE IN BOWEL HABIT 12/30/2017 BERNARD PELAYO MD Ot Z01.818 ENCOUNTER FOR OTHER PREPROCEDURAL EXAMIN 12/31/2017 BERNARD PELAYO MD Ot R19.4 CHANGE IN BOWEL HABIT 12/31/2017 BERNARD PELAYO MD Ot Z01.818 ENCOUNTER FOR OTHER PREPROCEDURAL EXAMIN 01/03/2018 BERNARD PELAYO MD Ot F41.9 ANXIETY DISORDER, UNSPECIFIED 01/03/2018 BERNARD PELAYO MD Ot F79 UNSPECIFIED INTELLECTUAL DISABILITIES 01/03/2018 BERNARD PELAYO MD Ot G40.909 EPILEPSY, UNSP, NOT INTRACTABLE, WITHOUT 01/03/2018 BERNARD PELAYO MD Ot K21.9 GASTRO-ESOPHAGEAL REFLUX DISEASE WITHOUT 01/03/2018 BERNARD PELAYO MD Ot K80.20 CALCULUS OF GALLBLADDER W/O CHOLECYSTITI 01/03/2018 BERNARD PELAYO MD Ot R19.4 CHANGE IN BOWEL HABIT 01/03/2018 BERNARD PELAYO MD Ot Z12.11 ENCOUNTER FOR SCREENING FOR MALIGNANT NE 01/03/2018 BERNARD PELAYO MD M Ot Z79.899 OTHER JAIL (CURRENT) DRUG THERAPY 01/04/2018 BERNARD PELAYO MD Ot K80.20 CALCULUS OF GALLBLADDER W/O CHOLECYSTITI 01/04/2018 BERNARD PELAYO MD Ot Z01.818 ENCOUNTER FOR OTHER PREPROCEDURAL EXAMIN 01/04/2018 BERNARD PELAYO MD Ot Z11.2 ENCOUNTER FOR SCREENING FOR OTHER BACTER 01/04/2018 BERNARD PELAYO MD Ot F41.9 ANXIETY DISORDER, UNSPECIFIED 01/04/2018 BERNARD PELAYO MD Ot F79 UNSPECIFIED INTELLECTUAL DISABILITIES 01/04/2018 BERNARD PELAYO MD Ot G40.909 EPILEPSY, UNSP, NOT INTRACTABLE, WITHOUT 01/04/2018 BERNARD PELAYO MD Ot K21.9 GASTRO-ESOPHAGEAL REFLUX DISEASE WITHOUT 01/04/2018 BERNARD PELAYO MD Ot K80.20 CALCULUS OF GALLBLADDER W/O CHOLECYSTITI 01/04/2018 BERNARD PELAYO MD Ot R19.4 CHANGE IN BOWEL HABIT 01/04/2018 DIAZ PELAYO MDVIER M Ot Z12.11 ENCOUNTER FOR SCREENING FOR MALIGNANT NE 01/04/2018 GITA LEMUS, BERNARD German Ot 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 01/07/2018 GITA LEMUS, BERNARD German Ot F41.9 ANXIETY DISORDER, UNSPECIFIED 01/07/2018 GITA LEMUS, BERNARD German Ot F79 UNSPECIFIED INTELLECTUAL DISABILITIES 01/07/2018 GITA LEMUS, BERNARD German Ot G40.909 EPILEPSY, UNSP, NOT INTRACTABLE, WITHOUT 01/07/2018 GITA LEMUS, BERNARD German Ot K21.9 GASTRO-ESOPHAGEAL REFLUX DISEASE WITHOUT 01/07/2018 GITA LEMUS, BERNARD German Ot K59.00 CONSTIPATION, UNSPECIFIED 01/07/2018 GITA LEMUS, BERNARD German Ot K80.10 CALCULUS OF GALLBLADDER W CHRONIC CHOLEC 01/07/2018 GITA LEMUS, BERNARD German Ot Z79.899 OTHER JAIL (CURRENT) DRUG THERAPY 01/10/2018 GITA LEMUS, BERNARD German Ot F41.9 ANXIETY DISORDER, UNSPECIFIED 01/10/2018 GITA LEMUS, BERNARD German Ot F79 UNSPECIFIED INTELLECTUAL DISABILITIES 01/10/2018 GITA LEMUS, BERNARD German Ot G40.909 EPILEPSY, UNSP, NOT INTRACTABLE, WITHOUT 01/10/2018 GITA LEMUS, BERNARD German Ot K21.9 GASTRO-ESOPHAGEAL REFLUX DISEASE WITHOUT 01/10/2018 GITA LEMUS, BERNARD German Ot K59.00 CONSTIPATION, UNSPECIFIED 01/10/2018 GITA LEMUS, BERNARD German Ot K80.10 CALCULUS OF GALLBLADDER W CHRONIC CHOLEC 01/10/2018 GITA LEMUS, BERNARD German Ot Z79.899 OTHER JAIL (CURRENT) DRUG THERAPY 03/23/2018 ANASTASIIA CORTES MD Ot F41.9 ANXIETY DISORDER, UNSPECIFIED 03/23/2018 ANASTASIIA CORTES MD Ot K21.9 GASTRO-ESOPHAGEAL REFLUX DISEASE WITHOUT 03/23/2018 ANASTASIIA CORTES MD Ot K31.89 OTHER DISEASES OF STOMACH AND DUODENUM 03/23/2018 ANASTASIIA CORTES MD Ot K59.09 OTHER CONSTIPATION 03/23/2018 ANASTASIIA CORTES MD Ot R10.84 GENERALIZED ABDOMINAL PAIN 03/23/2018 ANASTASIIA CORTES MD Ot Z87.19 PERSONAL HISTORY OF OTHER DISEASES OF TH 03/23/2018 ANASTASIIA CORTES MD Ot Z98.890 OTHER SPECIFIED POSTPROCEDURAL STATES 03/25/2018 ANASTASIIA CORTES MD Ot F41.9 ANXIETY DISORDER, UNSPECIFIED 03/25/2018 ANASTASIIA CORTES MD Ot K21.9 GASTRO-ESOPHAGEAL REFLUX DISEASE WITHOUT 03/25/2018 ANASTASIIA CORTES MD Ot K31.89 OTHER DISEASES OF STOMACH AND DUODENUM 03/25/2018 ANASTASIIA CORTES MD Ot K59.09 OTHER CONSTIPATION 03/25/2018 ANASTASIIA CORTES MD Ot R10.84 GENERALIZED ABDOMINAL PAIN 03/25/2018 ANASTASIIA CORTES MD Ot Z87.19 PERSONAL HISTORY OF OTHER DISEASES OF 03/25/2018 ANASTASIIA CORTES MD Ot Z98.890 OTHER SPECIFIED POSTPROCEDURAL STATES Procedures Code Description Performed By Performed On 43.11 PERCUTANEOUS [ENDOSCOPIC] GASTROSTOMY [P 08/24/2013 [id number] EXCISION OF ESOPHAGAST JUNCT, PERC ENDO 12/17/2016 [id number] EXCISION OF STOMACH, PERCUTANEOUS APPROA 12/17/2016 Results [...] OF GROWTH Isolated NRG Bacterial blood culture [id number] NRG Bacterial blood culture - 12/16/16 15:04 QUANTITY OF GROWTH Isolated NRG Bacterial blood culture [id number] NRG Serum or plasma lactate measurement (moles/volume) - [...] 3.2-4.5 Blood manual differential performed detection - 12/21/17 08:05 Blood monocytes/100 leukocytes 11 % NRG Manual blood segmented neutrophils/100 leukocytes 55 % NRG Blood band neutrophils/100 leukocytes 3 % NRG Manual blood lymphocytes/100 leukocytes 30 % NRG Manual eosinophils/100 leukocytes in nose 0 % NRG Manual blood basophils/100 leukocytes 1 % NRG Blood ovalocytes detection by light microscopy SLIGHT NRG Whole blood basic metabolic panel - 12/22/17 [...] blood basophil count (count/volume) 0.0 10*3/uL 0.0-0.1 Methicillin resistant Staphylococcus aureus (MRSA) screening culture - 10:00 MRSA SCREEN RESULT MRSA ISOLATED [facility] Complete blood count (CBC) with automated white blood cell (WBC) differential - 03/23/18 10:28 Blood leukocytes automated count (number/volume) 5.9 10*3/uL 4.3-11.0 Blood erythrocytes automated count (number/volume) 4.64 10*6/uL 4.35-5.85 Venous blood hemoglobin measurement (mass/volume) 13.8 g/dL 13.3-17.7 Blood hematocrit (volume fraction) 41 % 40-54 Automated erythrocyte mean corpuscular volume 87 [foz_us] 80-99 Automated erythrocyte mean corpuscular hemoglobin (mass per erythrocyte) 30 pg 25-34 Automated erythrocyte mean corpuscular hemoglobin concentration measurement ( mass/volume) 34 g/dL 32-36 Automated erythrocyte distribution width ratio 15.3 % 10.0-14.5 Automated blood platelet count (count/volume) 234 10*3/uL 130-400 Automated blood platelet mean volume measurement 10.5 [foz_us] 7.4-10.4 Automated blood neutrophils/100 leukocytes 59 % 42-75 Automated blood lymphocytes/100 leukocytes 20 % 12-44 Blood monocytes/100 leukocytes 19 % 0-12 Automated blood eosinophils/100 leukocytes 2 % 0-10 Automated blood basophils/100 leukocytes 1 % 0-10 Blood neutrophils automated count (number/volume) 3.5 10*3 1.8-7.8 Blood lymphocytes automated count (number/volume) 1.2 10*3 1.0-4.0 Blood monocytes automated count (number/volume) 1.1 10*3 0.0-1.0 Automated eosinophil count 0.1 10*3/uL 0.0-0.3 Automated blood basophil count (count/volume) 0.0 10*3/uL 0.0-0.1 Comprehensive metabolic panel - 03/23/18 10:28 Serum or plasma sodium measurement (moles/volume) 142 mmol/L 135-145 Serum or plasma potassium measurement (moles/volume) 3.7 mmol/L 3.6-5.0 Serum or plasma chloride measurement (moles/volume) 108 mmol/L 98-107 Carbon dioxide 21 mmol/L 21-32 Serum or plasma anion gap determination (moles/volume) 13 mmol/L 5-14 Serum or plasma urea nitrogen measurement (mass/volume) 52 mg/dL 7-18 Serum or plasma creatinine measurement (mass/volume) 1.24 mg/dL 0.60-1.30 Serum or plasma urea nitrogen/creatinine mass ratio 42 NRG Serum or plasma creatinine measurement with calculation of estimated glomerular filtration rate 59 NRG Serum or plasma glucose measurement (mass/volume) 112 mg/dL 70-105 Serum or plasma calcium measurement (mass/volume) 9.6 mg/dL 8.5-10.1 Serum or plasma total bilirubin measurement (mass/volume) 0.7 mg/dL 0.1-1.0 Serum or plasma alkaline phosphatase measurement (enzymatic activity/volume) 87 U/L 40-136 Serum or plasma aspartate aminotransferase measurement (enzymatic activity/ volume) 19 U/L 5-34 Serum or plasma alanine aminotransferase measurement (enzymatic activity/volume ) 12 U/L 0-55 Serum or plasma protein measurement (mass/volume) 7.7 g/dL 6.4-8.2 Serum or plasma albumin measurement (mass/volume) 4.0 g/dL 3.2-4.5 Blood manual differential performed detection - 03/23/18 10:28 Blood monocytes/100 leukocytes 19 % NRG Manual blood segmented neutrophils/100 leukocytes 55 % NRG Blood band neutrophils/100 leukocytes 3 % NRG Manual blood lymphocytes/100 leukocytes 22 % NRG Manual eosinophils/100 leukocytes in nose 0 % NRG Manual blood basophils/100 leukocytes 1 % NRG Blood anisocytosis detection by light microscopy SLIGHT NRG Encounters ACCT No. Visit Date/Time Discharge Status Pt. Type Provider Facility Loc./Unit Complaint [id number] 03/23/2018 09:18:00 03/23/2018 12:39:00 DIS Emergency SEBASTIAN LEMUS, ANASTASIIA Lazo [facility] ER UNABLE TO BM,UNABLE TO EAT [id number] 01/07/2018 06:30:00 01/07/2018 12:37:00 DIS Outpatient BERNARD PELAYO MD [facility] SDC GALLSTONES [id number] 01/03/2018 08:38:00 01/03/2018 10:55:00 DIS Outpatient BERNARD PELAYO MD [facility] ENDO IRREGULAR BM [id number] 01/03/2018 05:35:00 01/03/2018 09:34:00 DIS Outpatient BERNARD PELAYO MD [facility] PREOP GALLSTONES [id number] 12/30/2017 10:00:00 12/30/2017 10:46:00 DIS Outpatient BERNARD PELAYO MD [facility] PREOP COLONOSCOPY [id number] 12/20/2017 16:50:00 12/23/2017 14:08:00 DIS Inpatient JUSTIN DUNBAR DO [facility] 4TH SBO,ACUTE RENAL FAILURE,H/O GASTRIC ULCERS [id number] 05/20/2017 11:43:00 05/20/2017 23:59:59 CLS Outpatient JUSTIN DUNBAR DO [facility] RAD TRAUMA TO LFT FOOT [id number] 12/16/2016 16:14:00 12/19/2016 12:45:00 DIS Inpatient JUSTIN DUNBAR DO [facility] 4TH PNEUMONIA RLL, VOMITING [id number] 02/26/2014 09:00:00 02/26/2014 23:59:59 CLS Out[facility] [id number] 02/16/2014 08:09:00 02/16/2014 23:59:59 CLS Outpatient GITA LEMUS, BERNARD German [facility] PREOP RESOLVE NUTRITION [id number] 09/12/2013 08:57:00 09/12/2013 23:59:59 CLS Outpatient [id number] 08/08/2013 11:36:00 08/30/2013 15:55:00 DIS Inpatient JUSTIN DUNBAR DO [facility] 4TH SEPTIC SHOCK,RT LUNG PNA, UTI [id number] 01/20/2019 13:10:00 ACT Emergency BRIDGET LEMUS, TALHA Lopez [facility] ER N/V
--- NOTE | 2019-01-20 15:05 | Diagnostic Imaging Report ---
INDICATION: Vomiting, poor appetite. FINDINGS: There is an elevated colonic fecal load suggestive of at least moderate constipation. No small bowel dilatation or fluid levels. No free gas. The lungs themselves are clear. There is no failure, effusion, or pneumothorax. IMPRESSION: Colonic constipation. Negative chest. Dictated by: Dictated on workstation # [id number]
--- NOTE | 2019-01-20 15:17 | NUR ---
AT THIS TIME PT IS REFUSING LAB AND TO GIVE A URINE.
--- NOTE | 2019-01-20 15:26 | NUR ---
LAB IN ROOM DRAWING BLOOD.
[2019-01-20 16:06] LABS: BASOPHILS % (AUTO) 0 % (0-10); EOSINOPHILS % (AUTO) 0 % (0-10); HEMATOCRIT 42 % (40-54); LYMPHOCYTES # (AUTO) 1.4 X 10^3 (1.0-4.0); LYMPHOCYTES % (AUTO) 14 % (12-44); MEAN CORPUSCULAR HEMOGLOBIN 32 PG (25-34); MEAN CORPUSCULAR HGB CONC 34 G/DL (32-36); MEAN CORPUSCULAR VOLUME 95 FL (80-99); MEAN PLATELET VOLUME 10.5 FL (7.4-10.4); MONOCYTES # (AUTO) 1.1 X 10^3 (0.0-1.0); MONOCYTES % (AUTO) 11 % (0-12); NEUTROPHILS # (AUTO) 7.7 X 10^3 (1.8-7.8); NEUTROPHILS % (AUTO) 75 % (42-75); PLATELET COUNT 194 10^3/uL (130-400); RED CELL DISTRIBUTION WIDTH 13.7 % (10.0-14.5); WHITE BLOOD COUNT 10.3 10^3/uL (4.3-11.0)
[2019-01-20 16:23] LABS: ALANINE AMINOTRANSFERASE 11 U/L (0-55); ALBUMIN 4.1 GM/DL (3.2-4.5); ALKALINE PHOSPHATASE 89 U/L (40-136); BILIRUBIN,TOTAL 0.7 MG/DL (0.1-1.0); BUN/CREATININE RATIO 24; CALCIUM 9.8 MG/DL (8.5-10.1); CARBON DIOXIDE 26 MMOL/L (21-32); CHLORIDE 104 MMOL/L (98-107); CREATININE SERUM 1.18 MG/DL (0.60-1.30); GFR ESTIMATED > 60; GLUCOSE 100 MG/DL (70-105); LIPASE 10 U/L (8-78); POTASSIUM 4.5 MMOL/L (3.6-5.0); SODIUM 138 MMOL/L (135-145); TOTAL PROTEIN 7.5 GM/DL (6.4-8.2)
[2019-01-20 16:39] VITALS: BP 136/85
== END 2019-01-20 16:39 | disposition home or self-care (01) ==
LOC: EDUNIT# 13:05 → ER 13:10
DX: K59.09 Other constipation (principal); G40.909 Epilepsy, unspecified, not intractable, without status epilepticus; F81.9 Developmental disorder of scholastic skills, unspecified; K21.9 Gastro-esophageal reflux disease without esophagitis; F41.9 Anxiety disorder, unspecified; Z87.19 Personal history of other diseases of the digestive system; Z98.890 Other specified postprocedural states
CPT/HCPCS: 36415; 74022; 80053; 83690; 85025; 86141

== ENCOUNTER → 2019-05-23 | Outpatient (CLI) | payer MEDICARE, MEDICAID | LOC: WOUNDCARE 08:16 | PROVIDERS: ATTEND Surgery | DX: L22 Diaper dermatitis (principal); R41.83 Borderline intellectual functioning | CPT/HCPCS: 99213 ==

== ENCOUNTER 2020-06-10 11:44 | Emergency (ER) | payer MEDICARE, MEDICAID ==
[~2020-06-10] VITALS: Ht 160 cm; Wt 59.0 kg
[~2020-06-10 11:44] MED LIST changes: -LOPE-145 PO; +LOPE-175 PO; -OMEP20CA12 PO; +OMEP20CA18 PO
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
[2020-06-10] MEDS ORDERED: clonazePAM 0.5 MG (KlonoPIN) TAB PO ONE (12:15)
[2020-06-10 12:17] LABS: BASOPHILS % (AUTO) 1 % (0-10); EOSINOPHILS % (AUTO) 1 % (0-10); HEMATOCRIT 32 % (40-54); HEMOGLOBIN 10.6 G/DL (13.3-17.7); LYMPHOCYTES # (AUTO) 0.6 X 10^3 (1.0-4.0); LYMPHOCYTES % (AUTO) 29 % (12-44); MEAN CORPUSCULAR HEMOGLOBIN 31 PG (25-34); MEAN CORPUSCULAR HGB CONC 33 G/DL (32-36); MEAN CORPUSCULAR VOLUME 94 FL (80-99); MEAN PLATELET VOLUME 10.3 FL (7.4-10.4); MONOCYTES # (AUTO) 0.2 X 10^3 (0.0-1.0); MONOCYTES % (AUTO) 12 % (0-12); NEUTROPHILS # (AUTO) 1.2 X 10^3 (1.8-7.8); NEUTROPHILS % (AUTO) 59 % (42-75); PLATELET COUNT 208 10^3/uL (130-400); RED CELL DISTRIBUTION WIDTH 13.5 % (10.0-14.5); WHITE BLOOD COUNT 2.1 10^3/uL (4.3-11.0)
[2020-06-10 12:29] LABS: ALBUMIN 3.6 GM/DL (3.2-4.5)
[2020-06-10 12:30] LABS: CHLORIDE 106 MMOL/L (98-107); POTASSIUM 4.1 MMOL/L (3.6-5.0); SODIUM 138 MMOL/L (135-145)
[2020-06-10 12:31] LABS: CALCIUM 9.2 MG/DL (8.5-10.1)
[2020-06-10 12:32] LABS: GLUCOSE 90 MG/DL (70-105); TOTAL PROTEIN 6.7 GM/DL (6.4-8.2)
[2020-06-10 12:33] LABS: CARBON DIOXIDE 22 MMOL/L (21-32)
[2020-06-10 12:34] LABS: BILIRUBIN,TOTAL 0.3 MG/DL (0.1-1.0)
[2020-06-10 12:36] LABS: ALKALINE PHOSPHATASE 86 U/L (40-136); CREATININE SERUM 0.97 MG/DL (0.60-1.30); GFR ESTIMATED > 60
[2020-06-10 12:37] LABS: BUN/CREATININE RATIO 16
[2020-06-10 12:39] LABS: ALANINE AMINOTRANSFERASE 16 U/L (0-55)
--- NOTE | 2020-06-10 12:40 | NUR ---
Meal tray delivered to room. [place] facility staff assisted pt with eating meal.
[2020-06-10] MEDS ORDERED: NS IV 500 ML 500 ML IV SCH (13:15)
[2020-06-10 14:15] LABS: BILIRUBIN,URINE NEGATIVE (NEGATIVE); CLARITY,URINE SL CLOUDY; COLOR,URINE YELLOW; GLUCOSE, URINE (UA) NEGATIVE (NEGATIVE); KETONES,URINE NEGATIVE (NEGATIVE); LEUKOCYTE ESTERASE ,URINE NEGATIVE (NEGATIVE); NITRITE,URINE NEGATIVE (NEGATIVE); PROTEIN,URINE NEGATIVE (NEGATIVE)
[2020-06-10 14:28] LABS: RBC,URINE >100 /HPF
[2020-06-10 14:31] LABS: WBC,URINE 0-2 /HPF
[2020-06-10 14:32] LABS: AMORPHOUS SEDIMENT,UR FEW AMOR PHOSPHATE /LPF; BACTERIA,URINE TRACE /HPF
[2020-06-10] MEDS ORDERED: POLY17PO6 PO (15:32)
--- NOTE | 2020-06-10 15:41 | Diagnostic Imaging Report ---
PROCEDURE: CT urinary tract, rule out kidney stone. TECHNIQUE: Multiple contiguous axial images were obtained through the abdomen and pelvis without the use of intravenous contrast. Auto Exposure Controls were utilized during the CT exam to meet ALARA standards for radiation dose reduction. INDICATION: Hematuria. Correlation is made with prior CT 12/20/2017. FINDINGS: Lung bases are clear of acute infiltrates. There is a large hiatal hernia present. No discrete liver mass is identified. Pancreas is mostly obscured. Spleen is unremarkable. No adrenal mass is identified. No renal calculus or hydronephrosis is detected. There is a large stool load throughout the colon consistent with constipation. The colon is diffusely distended. Small bowel does not appear to be appreciably dilated. There is no free fluid or fluid collection. No definite free air is detected. Bladder is unremarkable. Prostate is enlarged. A right inguinal hernia is noted. IMPRESSION: 1. Large hiatal hernia. 2. Colonic distention which contains large amount of stool suggestive of constipation. No definite small bowel obstruction is identified. There is no free air, free fluid, or fluid collection. Dictated by: Dictated on workstation # [id number]
[2020-06-10 15:55] VITALS: BP 98/65
== END 2020-06-10 15:55 | disposition home or self-care (01) ==
LOC: EDUNIT# 11:44 → ER 11:45
DX: R25.3 Fasciculation (principal); G40.909 Epilepsy, unspecified, not intractable, without status epilepticus; K21.0 Gastro-esophageal reflux disease with esophagitis; K59.09 Other constipation; F41.9 Anxiety disorder, unspecified; F89 Unspecified disorder of psychological development
CPT/HCPCS: 36415; 51701; 74176; 80053; 81000; 85025

== ENCOUNTER 2020-11-07 14:00 | Inpatient (IN) | payer MEDICARE, MEDICAID ==
[~2020-11-07] VITALS: Ht 165.1 cm; Wt 48.4 kg
[~2020-11-07 14:00] MED LIST changes: -PANT40TA3 PO; +PANT40TA52 PO
[2020-11-07 15:08] LABS: BASOPHILS % (AUTO) 0 % (0-10); EOSINOPHILS % (AUTO) 0 % (0-10); HEMATOCRIT 33 % (40-54); LYMPHOCYTES # (AUTO) 0.3 10^3/uL (1.0-4.0); LYMPHOCYTES % (AUTO) 11 % (12-44); MEAN CORPUSCULAR HEMOGLOBIN 29 pg (25-34); MEAN CORPUSCULAR HGB CONC 31 g/dL (32-36); MEAN CORPUSCULAR VOLUME 93 fL (80-99); MONOCYTES # (AUTO) 0.2 10^3/uL (0.0-1.0); MONOCYTES % (AUTO) 5 % (0-12); NEUTROPHILS # (AUTO) 2.7 10^3/uL (1.8-7.8); NEUTROPHILS % (AUTO) 83 % (42-75); PLATELET COUNT 78 10^3/uL (130-400); WHITE BLOOD COUNT 3.3 10^3/uL (4.3-11.0)
[2020-11-07 15:11] LABS: BILIRUBIN,URINE NEGATIVE (NEGATIVE); CLARITY,URINE CLEAR; COLOR,URINE YELLOW; GLUCOSE, URINE (UA) NEGATIVE (NEGATIVE); KETONES,URINE NEGATIVE (NEGATIVE); LEUKOCYTE ESTERASE ,URINE NEGATIVE (NEGATIVE); NITRITE,URINE NEGATIVE (NEGATIVE); PROTEIN,URINE NEGATIVE (NEGATIVE)
[2020-11-07] MEDS ORDERED: NS IV 1000 ML 1,000 ML ONE (15:14)
[2020-11-07] MEDS ORDERED: NS IV 1000 ML 1,000 ML IV SCH (15:15)
[2020-11-07] MEDS ORDERED: NS IV 500 ML 500 ML IV SCH (15:15)
[2020-11-07 15:17] LABS: BACTERIA,URINE NEGATIVE /HPF; RBC,URINE 0-2 /HPF; SQUAMOUS EPITHELIAL CELL,UR RARE /HPF; WBC,URINE RARE /HPF
[2020-11-07 15:18] LABS: AMORPHOUS SEDIMENT,UR RARE AMOR PHOSPHATE /LPF
[2020-11-07 15:20] LABS: ALBUMIN 3.2 GM/DL (3.2-4.5); CHLORIDE 110 MMOL/L (98-107); SODIUM 144 MMOL/L (135-145)
[2020-11-07 15:21] LABS: AMYLASE 504 U/L (25-125)
[2020-11-07 15:22] LABS: CALCIUM 9.4 MG/DL (8.5-10.1)
[2020-11-07 15:23] LABS: GLUCOSE 75 MG/DL (70-105); TOTAL PROTEIN 6.9 GM/DL (6.4-8.2)
[2020-11-07 15:24] LABS: CARBON DIOXIDE 27 MMOL/L (21-32)
[2020-11-07 15:25] LABS: BILIRUBIN,TOTAL 0.4 MG/DL (0.1-1.0)
[2020-11-07 15:26] LABS: ALKALINE PHOSPHATASE 141 U/L (40-136)
[2020-11-07 15:27] LABS: CREATININE SERUM 0.92 MG/DL (0.60-1.30); GFR ESTIMATED > 60
[2020-11-07 15:28] LABS: BUN/CREATININE RATIO 32
[2020-11-07 15:29] LABS: ALANINE AMINOTRANSFERASE 38 U/L (0-55)
[2020-11-07 15:30] LABS: LIPASE 523 U/L (8-78)
--- NOTE | 2020-11-07 15:48 | ED General ---
General Chief Complaint: General Problems/Pain Stated Complaint: LATHARGIC Nursing Triage Note: THE PT ARRIVAL BY EMS. LOC IS NORMAL FOR THE PT. NO DISTRESS IS SEEN. EMS REPORT POOR INTAKE PER NURSING STAFF. Nursing Sepsis Screen: No Definite Risk Source of Information: Patient Exam Limitations: No Limitations History of Present Illness Date Seen by Provider: Nov 07, 2020 Time Seen by Provider: 14:14 Initial Comments 65-year-old male who was brought to the emergency room for complaints of not acting his normal self, lethargic, and has been vomiting after his meals for the past month. The patient is a resident of a [facility] and staff report that he has not had as much urine output over the past few days. He is nonverbal and has profound intellectual disabilities. He is a patient of Dr. Rm. Timing/Duration: 1-2 Days Associated Systoms: Nausea/Vomiting Allergies and Home Medications Allergies Coded Allergies: No Known Drug Allergies (Unverified , 08/08/13) Home Medications Acetaminophen 325 Mg Tablet, 650 MG PO Q6H PRN for MILD PAIN/TEMP, (Reported) TAKES 2 (325MG) TABLETS Calcium Carbonate 200 Mg Tab.chew, 500 MG PO UD PRN for INDIGESTION, (Reported) MAX OF 10 500MG TABS IN 1 DAY Diphenhydramine HCl 25 Mg Capsule, 25 MG PO Q6H PRN for ALLERGY SYMPTOMS, (Reported) Diphenhydramine HCl 25 Mg Capsule, 50 MG PO Q6H PRN for ALLERGIC REACTIONS, (Reported) Eucalyptus/Menthol 1 Each Lozenge, 1 LOZENGE MM Q1H PRN for COUGH, (Reported) MAX 8 DROPS PER DAY Guaifenesin/Dextromethorphan 5 Ml Syrup, 10 ML PO Q4H PRN for COUGH, (Reported) Hydrocodone Bit/Acetaminophen 1 Tab Tab, 1-2 TAB PO 4-6HR PRN for PAIN Prescribed by: BERNARD PELAYO on 01/07/18 0950 Hydrocortisone 28.35 Gm Oint...g., TP TID PRN for RASH, (Reported) 1% CREAM Loperamide HCl 2 Mg Capsule, 2 MG PO UD PRN for DIARRHEA, (Reported) Magnesium Hydroxide 400 Mg/5 Ml Oral.susp, 30 ML PO BID PRN for CONSTIPATION-7TH LINE, (Reported) Multivitamin 1 Each Tablet, 1 TAB PO DAILY, (Reported) Mupirocin 22 Gm Oint...g., TOP BID, (Reported) APPLY TOPICALLY TO GREAT TOE ON THE LEFT FOOT Neomycin Epperson/Bacitrac Zn/Poly 28.3 Gm Oint...g., TP BID PRN for CUTS/ABRASIONS, (Reported) Olanzapine 10 Mg Tablet, 10 MG PO HS, (Reported) Pantoprazole Sodium 40 Mg Tablet.dr, 40 MG PO DAILY, (Reported) Polyethylene Glycol 3350 17 Gm Powd.pack, 17 GM PO DAILY, (Reported) Polyethylene Glycol 3350 17 Gm Powd.pack, 17 GM PO TID Prescribed by: MASON SWAIN on 06/10/20 1532 Psyllium Husk 0.52 Gm Capsule, 0.52 GM PO DAILY, (Reported) Sucralfate 1 Gm Tablet, 1 GM PO ACHS, (Reported) Tetrahydrozoline HCl 15 Ml Drops, 2 DROPS OU QID PRN for REDNESS/IRRITATION, (Reported) Patient Home Medication List Home Medication List Reviewed: Yes Review of Systems Review of Systems Constitutional: see HPI, weakness Gastrointestinal: see HPI, nausea, vomiting All Other Systems Reviewed Negative Unless Noted: Yes Past Gbdscuv-Dhwwjr-Cffwfl Hx Past Med/Social Hx: Reviewed Nursing Past Med/Soc Hx Patient Social History 2nd Hand Smoke Exposure: No Recent Foreign Travel: No Contact w/Someone Who Travel: No Recent Infectious Disease Expo: No Recent Hopitalizations: No Physical Abuse: No Sexual Abuse: No Mistreated: No Fear: No Immunizations Up To Date Tetanus Booster (TDap): Unknown PED Vaccines UTD: No Date of Pneumonia Vaccine: Aug 29, 2009 Date of Influenza Vaccine: Sep 29, 2017 Seasonal Allergies Seasonal Allergies: No Past Medical History Surgeries: Yes (CYST FROM CHEEK, PEG TUBE) Respiratory: No Currently Using CPAP: No Currently Using BIPAP: No Cardiac: No Neurological: Yes (MR) Developmental Disorder, Seizure Disorder Reproductive Disorders: No Sexually Transmitted Disease: No HIV/AIDS: No Genitourinary: No Gastrointestinal: Yes Gastroesophageal Reflux, Gastrointestinal Bleed, Chronic Constipation, Esophagitis, Ulcer, Gall Bladder Disease Musculoskeletal: Yes (foot deforminties) Endocrine: No HEENT: No Loss of Vision: Denies Cancer: No Psychosocial: Yes Anxiety Integumentary: No Blood Disorders: No Family Medical History Reviewed Nursing Family Hx Patient reports no known family medical history. No Pertinent Family Hx Physical Exam Vital Signs Vital Signs - First Documented 11/07/20 11/07/20 11/07/20 15:04 20:12 20:41 Temp 35.0 Pulse 60 Resp 18 B/P (MAP) 85/62 (70) Pulse Ox 100 O2 Delivery Room Air Capillary Refill : Less Than 3 Seconds Height, Weight, BMI Height: 5'6.00" Weight: 139lbs. 0.0oz. [id number]; 15.00 BMI Method:Actual General Appearance: No Apparent Distress, WD/WN Respiratory: Chest Non Tender, Lungs Clear, Normal Breath Sounds, No Accessory Muscle Use, No Respiratory Distress Cardiovascular: Regular Rate, Rhythm, No Edema, No Gallop, No JVD, No Murmur, Normal Peripheral Pulses Gastrointestinal: Normal Bowel Sounds, No Organomegaly, No Pulsatile Mass, Non Tender, Soft, Other (Patient does not elicit any nonverbal signs of pain on abdominal exam) Neurologic/Psychiatric: Alert, Oriented x3, Normal Mood/Affect Skin: Normal Color, Warm/Dry Focused Exam Lactate Level 11/07/20 19:30: Lactic Acid Level 0.56 Lactic Acid Level Laboratory Tests Test 11/07/20 19:30 Lactic Acid Level 0.56 MMOL/L (0.50-2.00) Progress/Results/Core Measures Suspected Sepsis Recent Fever Within 48 Hours: No Infection Criteria Present: None New/Unexplained Altered Menta: No Sepsis Screen: No Definite Risk SIRS Temperature: Pulse: 60 Respiratory Rate: 18 Laboratory Tests 11/07/20 14:57: White Blood Count 3.3L Blood Pressure 85 /62 Mean: 70 11/07/20 19:30: Lactic Acid Level 0.56 Laboratory Tests 11/07/20 14:57: Creatinine 0.92, Platelet Count 78L, Total Bilirubin 0.4 Results/Orders Lab Results Laboratory Tests Test 11/07/20 14:45 11/07/20 14:57 11/07/20 18:30 11/07/20 19:30 Range/Units Urine Color YELLOW Urine Clarity CLEAR Urine pH 7.0 5-9 Urine Specific [place] 1.020 1.016-1.022 Urine Protein NEGATIVE NEGATIVE Urine Glucose (UA) NEGATIVE NEGATIVE Urine Ketones NEGATIVE NEGATIVE Urine Nitrite NEGATIVE NEGATIVE Urine Bilirubin NEGATIVE NEGATIVE Urine Urobilinogen 0.2 < = 1.0 MG/DL Urine Leukocyte Esterase NEGATIVE NEGATIVE Urine RBC (Auto) NEGATIVE NEGATIVE Urine RBC 0-2 /HPF Urine WBC RARE /HPF Urine Squamous Epithelial Cells RARE /HPF Urine Crystals PRESENT H /LPF Urine Amorphous Sediment RARE TITO PHOSPHATE H /LPF Urine Bacteria NEGATIVE /HPF Urine Casts NONE /LPF Urine Mucus NEGATIVE /LPF Urine Culture Indicated NO White Blood Count 3.3 L 4.3-11.0 10^3/uL Red Blood Count 3.49 L 4.30-5.52 10^6/uL Hemoglobin 10.0 L 13.3-17.7 g/dL Hematocrit 33 L 40-54 % Mean Corpuscular Volume 93 80-99 fL Mean Corpuscular Hemoglobin 29 25-34 pg Mean Corpuscular Hemoglobin Concent 31 L 32-36 g/dL Red Cell Distribution Width 16.2 H 10.0-14.5 % Platelet Count 78 L 130-400 10^3/uL Mean Platelet Volume 11.0 9.0-12.2 fL Immature Granulocyte % (Auto) 1 % Neutrophils (%) (Auto) 83 H 42-75 % Lymphocytes (%) (Auto) 11 L 12-44 % Monocytes (%) (Auto) 5 0-12 % Eosinophils (%) (Auto) 0 0-10 % Basophils (%) (Auto) 0 0-10 % Neutrophils # (Auto) 2.7 1.8-7.8 10^3/uL Lymphocytes # (Auto) 0.3 L 1.0-4.0 10^3/uL Monocytes # (Auto) 0.2 0.0-1.0 10^3/uL Eosinophils # (Auto) 0.0 0.0-0.3 10^3/uL Basophils # (Auto) 0.0 0.0-0.1 10^3/uL Immature Granulocyte # (Auto) 0.0 0.0-0.1 10^3/uL Sodium Level 144 135-145 MMOL/L Potassium Level 5.0 3.6-5.0 MMOL/L Chloride Level 110 H 98-107 MMOL/L Carbon Dioxide Level 27 21-32 MMOL/L Anion Gap 7 5-14 MMOL/L Blood Urea Nitrogen 29 H 7-18 MG/DL Creatinine 0.92 0.60-1.30 MG/DL Estimat Glomerular Filtration Rate > 60 BUN/Creatinine Ratio 32 Glucose Level 75 70-105 MG/DL Calcium Level 9.4 8.5-10.1 MG/DL Corrected Calcium 10.0 8.5-10.1 MG/DL Total Bilirubin 0.4 0.1-1.0 MG/DL Aspartate Amino Transf (AST/SGOT) 34 5-34 U/L Alanine Aminotransferase (ALT/SGPT) 38 0-55 U/L Alkaline Phosphatase 141 H 40-136 U/L Total Protein 6.9 6.4-8.2 GM/DL Albumin 3.2 3.2-4.5 GM/DL Amylase Level 504 H 25-125 U/L Lipase 523 H 8-78 U/L Coronavirus 2019 (GIULIANA) Negative Negative Lactic Acid Level 0.56 0.50-2.00 MMOL/L My Orders Orders - LUCY ELLSWORTH Comprehensive Metabolic Panel (11/07/20 14:14) Lipase (11/07/20 14:14) Amylase (11/07/20 14:14) Ua Culture If Indicated (11/07/20 14:14) Ed Iv/Invasive Line Start (11/07/20 14:14) Cbc With Automated Diff (11/07/20 14:14) Ns Iv 1000 Ml (Sodium Chloride 0.9%) (11/07/20 15:15) Ns Iv 1000 Ml (Sodium Chloride 0.9%) (11/07/20 15:14) Ct Abdomen/Pelvis W (11/07/20 15:35) Iohexol Injection (Omnipaque 350 Mg/Ml 1 (11/07/20 16:15) Received Contrast (Hold Metformin- Contr (11/07/20 16:15) Sodium Chloride Flush (Catheter Flush Sy (11/07/20 16:15) Ns (Ivpb) (Sodium Chloride 0.9% Ivpb Bag (11/07/20 16:15) Covid 19 Inhouse Test (11/07/20 18:25) Chest 1 View, Ap/Pa Only (11/07/20 18:25) Blood Culture (11/07/20 18:25) Lactic Acid Analyzer (11/07/20 18:25) Medications Given in ED Current Medications Medications Dose Ordered Sig/Yoel Route Start Time Stop Time Status Last Admin Dose Admin Iohexol 100 ml ONCE ONCE IV 11/07/20 16:15 11/07/20 16:16 DC 11/07/20 17:42 70 ML Sodium Chloride 100 ml ONCE ONCE IV 11/07/20 16:15 11/07/20 16:16 DC 11/07/20 17:43 80 ML Vital Signs/I&O 11/07/20 11/07/20 11/07/20 15:04 20:12 20:41 Temp 35.0 36.3 Pulse 60 60 58 Resp 18 16 16 B/P (MAP) 85/62 (70) 103/75 116/63 Pulse Ox 100 96 O2 Delivery Room Air Capillary Refill : Less Than 3 Seconds Blood Pressure Mean: 70 Departure Communication (Admissions) Time/Spoke to Admitting Phy: 16:10 Discussed the case with Dr. Pearl and Dr. Smith. They agree with plans for admission. Dr. Smith recommends normal saline at 125 an hour n.p.o. status and Protonix [address] Pearl recommends IV vancomycin and Zosyn, repeat lab s, Lovenox daily SCDs Tylenol suppository Zofran fentanyl and a speech swallow evaluation. [place] staff notified. Impression Primary Impression: Aspiration pneumonia Additional Impressions: Gastritis Esophagitis Disposition: HOME, SELF-CARE Condition: Stable/Unchanged Admissions Decision to Admit Reason: Admit from ER (General) Decision to Admit/Date: Nov 07, 2020 Time/Decision to Admit Time: 19:00 Departure-Patient Inst. Referrals: JUSTIN DUNBAR DO (PCP/Family) Primary Care Physician LUCY ELLSWORTH Nov 07, 2020 15:47
[2020-11-07] MEDS ORDERED: IOHEXOL 350 MG/ML 100 ML (OMNIPAQUE 350) VIAL IV ONE (16:15)
[2020-11-07] MEDS ORDERED: HOLD METFORMIN - RECEIVED CONTRAST 20 ML VIAL IV SCH (16:15)
[2020-11-07] MEDS ORDERED: NS 100 ML (IVPB) BAG IV ONE (16:15)
[2020-11-07] MEDS ORDERED: CATHETER FLUSH 10 ML SYR IV PRN (16:15)
--- NOTE | 2020-11-07 18:01 | Diagnostic Imaging Report ---
PROCEDURE: CT abdomen and pelvis with contrast. TECHNIQUE: Multiple contiguous axial images were obtained through the abdomen and pelvis after administration of intravenous contrast. Auto Exposure Controls were utilized during the CT exam to meet ALARA standards for radiation dose reduction. All CT scans use one or more of the following dose optimizing techniques: automated exposure control, MA and/or KvP adjustment based on patient size and exam type or iterative reconstruction. DATE: November 07, 2020. COMPARISON: CT abdomen and pelvis June 10, 2020. INDICATION: 65-year-old male, elevated amylase and lipase. Abdominal pain. FINDINGS: There is airspace consolidation in the right lower lobe. There are predominantly linear opacities in the left lower lobe which most likely relate to atelectasis. The heart is not enlarged. There is no identified pericardial effusion. There is prominent abnormal wall thickening of the distal esophagus. This extends to the level of the gastroesophageal junction. There does appear to be abnormal mucosal enhancement of the stomach. The liver is unremarkable in size and contour. The main, right and left portal veins are patent. There is no identified intrahepatic or extrahepatic bile duct dilation. The main pancreatic duct is not abnormally dilated. Unremarkable appearance of the pancreatic parenchyma. The spleen is normal in size. The adrenal glands are unremarkable. Unremarkable appearance of the renal parenchyma. The urinary collecting systems are not distended. There is no identified renal or ureteral stone. There is prominent distention of the urinary bladder without identified abnormal urinary bladder wall thickening. There is a large amount of stool in the colon. There is mild distention of the colon measuring up to approximately 6.9 cm in diameter. There is no identified abnormal distention of small bowel segments. There is no identified free intracranial air. There is no identified focal drainable fluid collection. There is no identified sizable volume ascites. There is no identified abnormal enlarged lymph node in the abdomen or pelvis meeting CT size criteria for adenopathy. There is scoliosis. There are degenerative changes of the spine. There is no identified acute bony abnormality. IMPRESSION: CT ABDOMEN AND PELVIS. 1. Abnormal consolidation in the right lower lobe likely relating to aspiration and/or pneumonia. Other alveolar consolidative processes are also in the differential diagnosis. 2. Prominent abnormal wall thickening of the distal esophagus extending to the gastroesophageal junction. Esophagitis and malignancy are in the differential diagnosis. 3. Abnormal mucosal enhancement of the stomach which potentially could relate to gastritis. 4. A large volume stool in the colon with moderate distention of the colon. 5. Prominent distention of the urinary bladder without identified abnormal urinary bladder wall thickening. Dictated by: Dictated on workstation # [id number]
--- NOTE | 2020-11-07 18:53 | Diagnostic Imaging Report ---
EXAMINATION: Chest radiograph, portable AP view. DATE: 11/07/2020 6:36 PM INDICATION: 65-year-old male, shortness of breath. Concern for pneumonia. COMPARISON: December 18, 2016. FINDINGS: Heart size and mediastinal contours are unchanged. There is no identified pneumothorax. There is no large pleural effusion. There is nonspecific airspace consolidation in the right lower lobe. This appears similar in appearance dating back to November 2016. IMPRESSION: Nonspecific right lower lobe airspace consolidation with similar appearance dating back to November 2016. This could relate to aspiration or pneumonia. Other chronic airspace consolidative processes are considered, especially given that this appearance is similar dating back to 2016. There is no obvious radiographic progression, however, since November 2016. Dictated by: Dictated on workstation # [id number]
--- NOTE | 2020-11-07 20:25 | NUR ---
KIRT THOMPSON admitted to room 406-1, with an admitting diagnosis of ESOPHAGITIS, GASTRITIS, AND ASPIRATION PRECAUTIONS on 11/07/20 from ER via [facility], accompanied by ER STAFF. KIRT THOMPSON introduced to surroundings, call light, bed controls, phone, TV, temperature control, lights, meal times, smoking policy, visitor policy, side rail policy, bathrooms and showers. Patient Rights given to patient in the handbook. KIRT THOMPSON verbalizes understanding that [facility] is not responsible for the loss or damage to any personal effects or valuables that are kept in the patients posession during their hospitalization. Patient and/or family were informed about the Rapid Response Team and its purpose.
[2020-11-07 20:41] VITALS: BP 116/63
[2020-11-07] MEDS ORDERED: ONDANSETRON 4 MG/2 ML (SDV) Z0FRAN IV PRN (22:00)
[2020-11-07] MEDS ORDERED: ACETAMINOPHEN 650 MG SUPP (TYLENOL) PR PRN (22:00)
[2020-11-07] MEDS ORDERED: ENOXAPARIN 30 MG/0.3 ML (LOVENOX) SYR SC SCH (22:00)
[2020-11-07] MEDS ORDERED: VANCOMYCIN 1 GM/NS 250 ML IVPB IV SCH ×2 (22:00)
[2020-11-07] MEDS ORDERED: fentaNYL INJECTION 100 MCG/2 ML AMP IV PRN (22:15)
[2020-11-07] MEDS ORDERED: NS (IVPB) 100 ML ONE (22:30)
[2020-11-07] MEDS ORDERED: PIPERACILLIN/TAZO 4.5 GM VIAL (ZOSYN) IV ONE (22:30)
[2020-11-07] MEDS ORDERED: VANCOMYCIN 1000 MG/VIAL ONE (22:30)
[2020-11-07] MEDS ORDERED: PIPERACILLIN/TAZO 4.5 GM/NS 100 ML IV ONE ×2 (22:30)
[2020-11-07] MEDS ORDERED: NS (IVPB) 250 ML ONE (22:30)
[2020-11-07] MEDS: NS IV 1000 ML 1,000 ML IV SCH (23:00)
[2020-11-07 23:49] VITALS: BP 97/52
[2020-11-08 04:30] VITALS: BP 100/60
[2020-11-08] MEDS ORDERED: PIPERACILLIN/TAZO 4.5 GM VIAL (ZOSYN) IV ONE (04:55)
[2020-11-08] MEDS ORDERED: NS (IVPB) 100 ML ONE (04:55)
[2020-11-08 05:00] LABS: BASOPHILS % (AUTO) 0 % (0-10); HEMOGLOBIN 8.8 g/dL (13.3-17.7); MEAN CORPUSCULAR HEMOGLOBIN 29 pg (25-34); MEAN CORPUSCULAR VOLUME 92 fL (80-99)
[2020-11-08 05:02] LABS: EOSINOPHILS % (AUTO) 1 % (0-10); HEMATOCRIT 28 % (40-54); LYMPHOCYTES # (AUTO) 0.5 10^3/uL (1.0-4.0); LYMPHOCYTES % (AUTO) 15 % (12-44); MEAN CORPUSCULAR HGB CONC 31 g/dL (32-36); MEAN PLATELET VOLUME 11.2 fL (9.0-12.2); MONOCYTES # (AUTO) 0.3 10^3/uL (0.0-1.0); MONOCYTES % (AUTO) 9 % (0-12); NEUTROPHILS # (AUTO) 2.3 10^3/uL (1.8-7.8); NEUTROPHILS % (AUTO) 74 % (42-75); PLATELET COUNT 58 10^3/uL (130-400); WHITE BLOOD COUNT 3.1 10^3/uL (4.3-11.0)
[2020-11-08] MEDS: PIPERACILLIN/TAZO 4.5 GM/NS 100 ML IV SCH ×6 (05:45→22:12)
[2020-11-08 05:47] LABS: ALBUMIN 2.7 GM/DL (3.2-4.5); CHLORIDE 114 MMOL/L (98-107); POTASSIUM 4.8 MMOL/L (3.6-5.0); SODIUM 144 MMOL/L (135-145)
[2020-11-08 05:48] LABS: CALCIUM 8.3 MG/DL (8.5-10.1)
[2020-11-08 05:49] LABS: GLUCOSE 61 MG/DL (70-105); TOTAL PROTEIN 5.8 GM/DL (6.4-8.2)
[2020-11-08 05:50] LABS: CARBON DIOXIDE 26 MMOL/L (21-32)
[2020-11-08 05:51] LABS: BILIRUBIN,TOTAL 0.3 MG/DL (0.1-1.0)
[2020-11-08 05:53] LABS: ALKALINE PHOSPHATASE 121 U/L (40-136); CREATININE SERUM 0.81 MG/DL (0.60-1.30); GFR ESTIMATED > 60
[2020-11-08 05:54] LABS: BUN/CREATININE RATIO 30
[2020-11-08 05:56] LABS: ALANINE AMINOTRANSFERASE 31 U/L (0-55)
[2020-11-08] MEDS: NS IV 1000 ML 1,000 ML IV SCH ×3 (07:17→17:18)
[2020-11-08] MEDS: PANTOPRAZOLE 40 MG (PROTONIX) VIAL IV SCH (07:18)
[2020-11-08 08:00] VITALS: BP 102/65
--- NOTE | 2020-11-08 08:15 | Consultation - Surgery ---
DONNIE BUI MED STUDENT 11/08/20 0815: History of Present Illness History of Present Illness Patient Consulted On(taylor/time) 11/07/20 22:07 Date Seen by Provider: Nov 08, 2020 Time Seen by Provider: 07:05 History of Present Illness Pt is a 65yo male being consulted for changes in behavior, lethargy, decreased urine output, decreased oral intake, and post-prandial vomiting for the past mo nth. He is a resident of [facility] and presented to the ED yesterday. Pt was seen and examined, NAD. He was awake, and alert, but unresponsive to verbal commands. He did not appear be in pain or discomfort. Allergies and Home Medications Allergies Coded Allergies: No Known Drug Allergies (Unverified , 08/08/13) Home Medications Acetaminophen 325 Mg Tablet, 650 MG PO Q6H PRN for PAIN-MILD (1-4), (Reported) TAKES 2 (325MG) TABLETS Calcium Carbonate 500 Mg Tablet, 1,000 MG PO Q4H PRN for HOLMAN, (Reported) Cholecalciferol (Vitamin D3) 50 Mcg Capsule, 50 MCG PO DAILY, (Reported) Diphenhydramine HCl 25 Mg Capsule, 25-50 MG PO Q6H PRN for ALLERGY SYMPTOMS, (Reported) Docusate Sodium 100 Mg Tablet, 100 MG PO BID, (Reported) Guaifenesin/Dextromethorphan 5 Ml Syrup, 10 ML PO Q4H PRN for COUGH, (Reported) Ibuprofen 200 Mg Tablet, 400 MG PO Q6H PRN for PAIN-MILD (1-4), (Reported) Loperamide HCl 2 Mg Capsule, 1-2 MG PO UD PRN for DIARRHEA, (Reported) GIVE 2 TABS AFTER FIRST WATERY STOOL, GIVE AN ADDITIONAL 1 TAB AFTER EACH WATERY STOOL. DO NOT EXCEED 4 DOSES PER 24 HOURS Magnesium Hydroxide 400 Mg/5 Ml Oral.susp, 30 ML PO Q12H PRN for CONSTIPATION- 7TH LINE, (Reported) Melatonin 5 Mg Tablet, 5 MG PO HS, (Reported) Menthol 5 Mg Lozenge, 5 MG MM Q1H PRN for COUGH, (Reported) Multivitamin 1 Each Tablet, 1 EACH PO DAILY, (Reported) Olanzapine 10 Mg Tablet, 10 MG PO HS, (Reported) Ondansetron 8 Mg Tab.rapdis, 16 MG PO TIDAC, (Reported) TAKES 2 (8MG) TABS Ondansetron 4 Mg Tab.rapdis, 4 MG PO Q8H PRN for NAUSEA/VOMITING-1ST LINE, (Reported) Pantoprazole Sodium 40 Mg Tablet.dr, 40 MG PO DAILY, (Reported) Polyethylene Glycol 3350 17 Gm Powd.pack, 17 GM PO DAILY, (Reported) Psyllium Husk 0.52 Gm Capsule, 0.52 GM PO DAILY, (Reported) Tetrahydrozoline HCl 15 Ml Drops, 2 DROP OU Q6H PRN for REDNESS/IRRITATION, (Reported) Patient Home Medication List Home Medication List Reviewed: Yes Past Zgjqylc-Bgqpqb-Hbpxli Hx Patient Social History 2nd Hand Smoke Exposure: No Recent Foreign Travel: No Contact w/Someone Who Travel: No Recent Infectious Disease Expo: No Recent Hopitalizations: No Immunizations Up To Date Tetanus Booster (TDap): Unknown PED Vaccines UTD: No Date of Pneumonia Vaccine: Aug 29, 2009 Date of Influenza Vaccine: Sep 29, 2017 Seasonal Allergies Seasonal Allergies: No Surgeries History of Surgeries: Yes (CYST FROM CHEEK, PEG TUBE) Respiratory History of Respiratory Disorde: No Cardiovascular History of Cardiac Disorders: No Neurological History of Neurological Disord: Yes (MR) Neurological Disorders: Developmental Disorder, Seizure Disorder Reproductive System Hx Reproductive Disorders: No Sexually Transmitted Disease: No HIV/AIDS: No Genitourinary History of Genitourinary Disor: No Gastrointestinal History of Gastrointestinal Di: Yes Gastrointestinal Disorders: Gastroesophageal Reflux, Gastrointestinal Bleed, Chronic Constipation, Esophagitis, Ulcer, Gall Bladder Disease Musculoskeletal History of Musculoskeletal Dis: Yes (foot deforminties) Endocrine History of Endocrine Disorders: No HEENT History of HEENT Disorders: No Loss of Vision: Denies Cancer History of Cancer: No Psychosocial History of Psychiatric Problem: Yes Behavioral Health Disorders: Anxiety Integumentary History of Skin or Integumenta: No Blood Transfusions History of Blood Disorders: No Family Medical History Significant Family History: No Pertinent Family Hx Family Medial History: Patient reports no known family medical history. Review of Systems-General ROS-Unable to Obtain: pt not responsive to questions Physical Exam-General Problems Physical Exam Vital Signs Vital Signs - First Documented 11/07/20 11/07/20 11/07/20 15:04 20:12 20:35 Temp 35.0 Pulse 60 Resp 18 B/P (MAP) 85/62 (70) Pulse Ox 100 O2 Delivery Room Air Capillary Refill : Less Than 3 Seconds General Appearance: no apparent distress, thin Eyes: Bilateral Eye Normal Inspection, Bilateral Eye PERRL, Bilateral Eye EOMI HEENT: PERRL/EOMI Neck: full range of motion, normal inspection Respiratory: chest non-tender, no respiratory distress, no accessory muscle use, rhonchi (bilaterally) Cardiovascular: normal peripheral pulses, regular rate, rhythm, no edema, no gallop, no JVD, no murmur Gastrointestinal: normal bowel sounds, non tender, soft Back: normal inspection, no CVA tenderness Extremities: non-tender, normal inspection, no pedal edema Neurologic/Psychiatric: no motor/sensory deficits, alert, other (unable to assess orientation) Skin: normal color, warm/dry Data Review Labs Laboratory Tests 11/07/20 14:45: Urine Color YELLOW, Urine Clarity CLEAR, Urine pH 7.0, Urine Specific Fiatt 1.020, Urine Protein NEGATIVE, Urine Glucose (UA) NEGATIVE, Urine Ketones NEGATIVE, Urine Nitrite NEGATIVE, Urine Bilirubin NEGATIVE, Urine Urobilinogen 0.2, Urine Leukocyte Esterase NEGATIVE, Urine RBC (Auto) NEGATIVE, Urine RBC 0- 2, Urine WBC RARE, Urine Squamous Epithelial Cells RARE, Urine Crystals PRESENTH , Urine Amorphous Sediment RARE TITO PHOSPHATEH, Urine Bacteria NEGATIVE, Urine Casts NONE, Urine Mucus NEGATIVE, Urine Culture Indicated NO 11/07/20 14:57: White Blood Count 3.3L, Red Blood Count 3.49L, Hemoglobin 10.0L, Hematocrit 33L, Mean Corpuscular Volume 93, Mean Corpuscular Hemoglobin 29, Mean Corpuscular Hemoglobin Concent 31L, Red Cell Distribution Width 16.2H, Platelet Count 78L, Mean Platelet Volume 11.0, Immature Granulocyte % (Auto) 1, Neutrophils (%) (Auto) 83H, Lymphocytes (%) (Auto) 11L, Monocytes (%) (Auto) 5, Eosinophils (%) (Auto) 0, Basophils (%) (Auto) 0, Neutrophils # (Auto) 2.7, Lymphocytes # (Auto) 0.3L, Monocytes # (Auto) 0.2, Eosinophils # (Auto) 0.0, Basophils # (Auto) 0.0, Immature Granulocyte # (Auto) 0.0, Sodium Level 144, Potassium Level 5.0, Chloride Level 110H, Carbon Dioxide Level 27, Anion Gap 7, Blood Urea Nitrogen 29H, Creatinine 0.92, Estimat Glomerular Filtration Rate > 60, BUN/Creatinine Ratio 32, Glucose Level 75, Calcium Level 9.4, Corrected Calcium 10.0, Total Bilirubin 0.4, Aspartate Amino Transf (AST/SGOT) 34, Alanine Aminotransferase (ALT/SGPT) 38, Alkaline Phosphatase 141H, Total Protein 6.9, Albumin 3.2, Amylase Level 504H, Lipase 523H 11/07/20 18:30: Coronavirus 2019 (GIULIANA) Negative 11/07/20 19:30: Lactic Acid Level 0.56 11/08/20 04:20: White Blood Count 3.1L, Red Blood Count 3.05L, Hemoglobin 8.8L, Hematocrit 28L, Mean Corpuscular Volume 92, Mean Corpuscular Hemoglobin 29, Mean Corpuscular Hemoglobin Concent 31L, Red Cell Distribution Width 16.2H, Platelet Count 58L, Mean Platelet Volume 11.2, Immature Granulocyte % (Auto) 1, Neutrophils (%) (Auto) 74, Lymphocytes (%) (Auto) 15, Monocytes (%) (Auto) 9, Eosinophils (%) (Auto) 1, Basophils (%) (Auto) 0, Neutrophils # (Auto) 2.3, Lymphocytes # (Auto) 0.5L, Monocytes # (Auto) 0.3, Eosinophils # (Auto) 0.0, Basophils # (Auto) 0.0, Immature Granulocyte # (Auto) 0.0, Sodium Level 144, Potassium Level 4.8, Chloride Level 114H, Carbon Dioxide Level 26, Anion Gap 4L, Blood Urea Nitrogen 24H, Creatinine 0.81, Estimat Glomerular Filtration Rate > 60, BUN/Creatinine Ratio 30, Glucose Level 61L, Calcium Level 8.3L, Corrected Calcium 9.3, Total Bilirubin 0.3, Aspartate Amino Transf (AST/SGOT) 29, Alanine Aminotransferase (ALT/SGPT) 31, Alkaline Phosphatase 121, Total Protein 5.8L, Albumin 2.7L Assessment/Plan Assessment/Plan Assessment/Plan Lethargy GERD Esophagitis Gastritis Hypoglycemia - Gl Intellectual disability Seizure disorder Anemia - Hgb 8.8 Leukopenia - WBC 3.1 Thrombocytopenia - Plt 58 NPO status, IV fluids, protonix IV. Continue to monitor labs/mental status. Clinical Quality Measures DVT/VTE Risk/Contraindication: Risk Factor Score Per Nursin RFS Level Per Nursing on Admit: 2=Moderate KARYN MENDOZA DO 11/08/201916: History of Present Illness History of Present Illness History of Present Illness Consult requested for nausea vomiting abnormal CT scan by Dr. Pearl. Patient is a 65-year-old male who lives in a nursing home. He is nonverbal. Unable to provide any information. Patient has been having nausea and vomiting reported after eating. His symptoms have been going on for approximately 1 month. He apparently has had some slight behavioral changes lethargy and decreased intake and urine output. Again patient is unable to provide any information chart reviewed. CT scan was performed demonstratin. Abnormal consolidation in the right lower lobe likely relating to aspiration and/or pneumonia. Other alveolar consolidative processes are also in the differential diagnosis. 2. Prominent abnormal wall thickening of the distal esophagus extending to the gastroesophageal junction. Esophagitis and malignancy are in the differential diagnosis. 3. Abnormal mucosal enhancement of the stomach which potentially could relate to gastritis. 4. A large volume stool in the colon with moderate distention of the colon. 5. Prominent distention of the urinary bladder without identified abnormal urinary bladder wall thickening. Allergies and Home Medications Allergies Coded Allergies: No Known Drug Allergies (Unverified , 08/08/13) Home Medications Acetaminophen 325 Mg Tablet, 650 MG PO Q6H PRN for PAIN-MILD (1-4), (Reported) TAKES 2 (325MG) TABLETS Calcium Carbonate 500 Mg Tablet, 1,000 MG PO Q4H PRN for HOLMAN, (Reported) Cholecalciferol (Vitamin D3) 50 Mcg Capsule, 50 MCG PO DAILY, (Reported) Diphenhydramine HCl 25 Mg Capsule, 25-50 MG PO Q6H PRN for ALLERGY SYMPTOMS, (Reported) Docusate Sodium 100 Mg Tablet, 100 MG PO BID, (Reported) Guaifenesin/Dextromethorphan 5 Ml Syrup, 10 ML PO Q4H PRN for COUGH, (Reported) Ibuprofen 200 Mg Tablet, 400 MG PO Q6H PRN for PAIN-MILD (1-4), (Reported) Loperamide HCl 2 Mg Capsule, 1-2 MG PO UD PRN for DIARRHEA, (Reported) GIVE 2 TABS AFTER FIRST WATERY STOOL, GIVE AN ADDITIONAL 1 TAB AFTER EACH WATERY STOOL. DO NOT EXCEED 4 DOSES PER 24 HOURS Magnesium Hydroxide 400 Mg/5 Ml Oral.susp, 30 ML PO Q12H PRN for CONSTIPATION- 7TH LINE, (Reported) Melatonin 5 Mg Tablet, 5 MG PO HS, (Reported) Menthol 5 Mg Lozenge, 5 MG MM Q1H PRN for COUGH, (Reported) Multivitamin 1 Each Tablet, 1 EACH PO DAILY, (Reported) Olanzapine 10 Mg Tablet, 10 MG PO HS, (Reported) Ondansetron 8 Mg Tab.rapdis, 16 MG PO TIDAC, (Reported) TAKES 2 (8MG) TABS Ondansetron 4 Mg Tab.rapdis, 4 MG PO Q8H PRN for NAUSEA/VOMITING-1ST LINE, (Reported) Pantoprazole Sodium 40 Mg Tablet.dr, 40 MG PO DAILY, (Reported) Polyethylene Glycol 3350 17 Gm Powd.pack, 17 GM PO DAILY, (Reported) Psyllium Husk 0.52 Gm Capsule, 0.52 GM PO DAILY, (Reported) Tetrahydrozoline HCl 15 Ml Drops, 2 DROP OU Q6H PRN for REDNESS/IRRITATION, (Reported) Patient Home Medication List Home Medication List Reviewed: Yes Past Hhwqfin-Cfyokk-Jxxrbz Hx Reviewed Nursing Assessment Reviewed/Agree w Nursing PMH: Yes Family Medical History Significant Family History: No Pertinent Family Hx Family Medial History: Patient reports no known family medical history. Review of Systems-General ROS-Unable to Obtain: unable to provide,nonverbal Physical Exam-General Problems Physical Exam General Appearance: no apparent distress, thin HEENT: PERRL/EOMI, normal ENT inspection Neck: full range of motion, normal inspection Respiratory: chest non-tender, no respiratory distress, no accessory muscle use, rhonchi (bilaterally) Cardiovascular: normal peripheral pulses, regular rate, rhythm, no edema Gastrointestinal: non tender, soft Rectal: deferred Back: normal inspection, no CVA tenderness Extremities: non-tender, normal inspection, no pedal edema Neurologic/Psychiatric: alert, other (unable to assess orientation, nonverbal) Skin: normal color, warm/dry Lymphatic: no adenopathy Assessment/Plan Assessment/Plan Assessment/Plan Right lower lobe pneumonia Nausea/vomiting GERD Esophagitis/Gastritis by ct Hypoglycemia Intellectual disability Seizure disorder Anemia - Hgb 8.8 Leukopenia - WBC 3.1 Thrombocytopenia - Plt 58 Elevated amylase/lipase Dysphagia by swallow eval Would continue PPI IV hydration Repeat labs Would recommend endoscopy inpatient vs outpatient Follow labs Does not seem to have any pain or discomfort with abdomen No acute surgical issues at this time Consider bowel regimen. Supervisory-Addendum Brief Verification & Attestation Participated in pt care: history, MDM, physical Personally performed: exam, history, MDM, supervision of care Care discussed with: Medical Student Procedures: n/a Results interpretation: Verified all documentation Verification and Attestation of Medical Student E/M Service A medical student performed and documented this service in my presence. I reviewed and verified all information documented by the medical student and made modifications to such information, when appropriate. I personally performed the physical exam and medical decision making. Karyn Mendoza, Nov 08, 2020,19:17 DONNIE BUI MED STUDENT Nov 08, 2020 08:15 KARYN MENDOZA DO Nov 08, 2020 19:17
--- NOTE | 2020-11-08 08:27 | ST Dysphagia Evaluation ---
Speech Evaluation-General Medical Diagnosis Aspiration Pneumonia Onset Date: Nov 08, 2020 Therapy Diagnosis Therapy Diagnosis: Oropharyngeal Dysphagia Precautions Precautions: Aspiration Referral Referring Physician: Dr. Pearl Medical History Reviewed History: Yes Social History Home: Current Living Status: Speech PLF/Current-Dysphagia Prior Level of Function Patient lives in a snf where he is assisted with all of his daily needs. Patient is non-verbal. Subjective Patient was cooperative with the Bedside Dysphagia Evaluation. Cognitive Status Patient Orientation: Person, Unable to Assess, Non-Verbal/Aphasic Oral Motor Skills Dentition: Edentalous Ability to Follow Directions: Fair Patient was NPO pending BDE. Oral Expression Ability: Unable Face Facial Symmetry: Symmetrical Oral-Facial Assessment Oral-Facial Dentition: Normal Labial Seal Description: Normal Lingual Protrusion: Normal Lingual ROM: Normal Lingual Strength: Normal Pharynx Velopharyngeal Move.: Normal Volitional Dry Swallow: Yes Productive Cough: Yes Audible movement of phlegm with cough Dysphagia Evaluation Consistencies Presented: Thin Liquid, Mechanical Soft, [place] Thick Liquid, Pureed Oral phase is within normal limits for 1/2 tsp puree and nectar consistency liquids. Immediate cough with 1/2 tsp of thin liquids. Poor bolus management for 1/2 tsp mechanical soft. Pharyngeal Phase: Decreased A/P Bolus Transit, Multiple Swallow Attempts Pharyngeal phase is within normal limits with nectar and puree. Patient exhibit immediate cough with 1/2 tsp thin. Patient has difficulty swallowing mechanical soft, requiring multiple attempts to clear. Dietary Recommendations: Pureed Liquid Recommendations: [place] Consistancy Swallowing Precautions: Alternate Liquids/Solids, Double Swallow, Decreased Bolus 1/2 Tsp, Liquids from Spoon, No Straw, Small Bites and Sips, Sitting Upright 90 Degrees, Sitting 90 Degrees 30 Post Intake Dysphagia Evaluation Summary Patient is a resident of a snf who was brought to the ED following several days of vomiting and decreased intake. The patient is nonverbal with profound intellectual disabilities. He was referred by for a Bedside Dysphagia Evaluation which was completed this am. Patient was presented 1/2 tsp of thin liquids with immediate cough following swallow. Patient was given nectar consistency liquids at 1/2 tsp x2 without cough noted. Patient was also given 1/2 tsp bites x2 of puree without difficulty. Mechanical soft was also presented at 1/2 tsp which he demonstrated difficulty with bolus formation. He required mu ltiple swallows for clearing. The patient is recommended for a Dysphagia I diet level with nectar consistency liquids. This information was provided to his nurse, Niya as well as written on the white board in his room. Barriers to Learning Patient's profound intellectual disabilities Speech-Plan Patient/Family Goals Patient/Family Goals: Patient will return to his snf upon discharge. Treatment Plan Speech Therapy Treatment Plan: Discontinue ST Treatment Duration: Nov 08, 2020 Frequency: 1 time per week Estimated Hrs Per Day: .25 hour per day Rehab Potential: Poor Barriers to Learning: Patient's profound intellectual disabilities Pt/Family Agrees to Plan: Yes Safety Risks/Education Teaching Recipient: Patient Teaching Methods: Discussion Response to Teaching: Unable to Comprehend Education Topics Provided: Diet level, safety of oral intake Time Speech Therapy Time In: 08:00 Speech Therapy Time Out: 08:20 Total Billed Time: 20 Billed Treatment Time 1, [facility] [address] Nov 08, 2020 08:27
[2020-11-08] MEDS ORDERED: IBUP-2473 PO (09:04)
[2020-11-08] MEDS ORDERED: ONDA4TAB11 PO (09:04)
[2020-11-08] MEDS ORDERED: MULT-1136 PO (09:04)
[2020-11-08] MEDS ORDERED: MENT5LOZ3 MM (09:04)
[2020-11-08] MEDS ORDERED: MELA5TAB14 PO (09:04)
[2020-11-08] MEDS ORDERED: TETR15DR49 OU (09:04)
[2020-11-08] MEDS ORDERED: PSYL0.525 PO (09:04)
[2020-11-08] MEDS ORDERED: ONDA8TAB13 PO (09:04)
[2020-11-08] MEDS ORDERED: CALC500T64 PO (09:04)
[2020-11-08] MEDS ORDERED: CHOL200074 PO (09:04)
[2020-11-08] MEDS ORDERED: DOCU100T2 PO (09:04)
--- NOTE | 2020-11-08 09:19 | NUR ---
MED REC WAS ENTERED USING THE MAR FROM [facility]
[2020-11-08 12:00] VITALS: BP 102/71
--- NOTE | 2020-11-08 14:10 | NUR ---
"RD ASSESSMENT PMHx: developmental disorder; seizure disorder; GERD; chronic constipation; esophagitis; PT INTERACTION: Note pt was alert and acknowledged my presence during consult for MST score. Note pt was non-responsive and non-verbal to diet questions asked during consult. Note report of decreased PO intake and episodes of post-prandial vomiting, per chart review. Note no BM has been recorded, and pt not currently on bowel regimen. Note recent 23% wt loss x5mon, per chart review. Note this is significant wt loss at 19% x5mon. Upon visual assessment, pt appears undernourished with some visible signs of muscle/fat wasting that may or may not be attributed to pt's age. Note pt has BMI of 17.8 (Underweight BMI for age). Given reports of PO intake, wt hx, and visual assessment, pt meets criteria for malnutrition, per ASPEN guidelines. ABNORMAL NUTRITION-RELATED LAB VALUES LOW: glu 61; CA 8.3; Pro 6.3; alb 2.7; HIGH: Cl 114; BUN 24; amylase 504; lipase 523; Est. kcal needs: 5869-4702 kcal | 30-35 kcal/kg Est. Pro needs: 58-67 g Pro | 1.2-1.4 g Pro/kg PES STATEMENT: Inadequate oral intake (NI-2.1) related to loss of appetite, and post-prandial vomiting, as evidenced by chart review. Chronic disease or condition related malnutrition [undernutrition] (NC-4.1.2) related to diminished PO intake as evidenced by 19% wt loss x5mon, visual assessment, and chart review. INTERVENTION: Continue with current diet order of DYS1 Pureed diet. Add Ensure Enlive (vary) to meals TID, for increased kcal intake. Provides 350 kcal and 20 g Pro per serving. Pt may need feeding assistance with meals. Will continue to follow and reassess as pt needs, intake, and status change. Tia FARR, MS RD LD [phone] cell"
--- NOTE | 2020-11-08 15:08 | History & Physical-Hospitalist ---
History of Present Illness HPI/Chief Complaint Jd Neves is a 65-year-old male with intellectual disability residing in a [place] [facility] who presented with lethargy, nausea, and vomiting. Due to his intellectual disability has a poor historian and is unable to provide any history. His reportedly been having issues with nausea and vomiting for quite some time. This seems to be associated with meals. He has also had decreased urine output. He has had previous admissions with esophagitis and gastritis. He has also had an admission due to a small bowel obstruction. Source: RN/MD Exam Limitations: no limitations Date Seen 11/08/20 Time Seen by a Provider: 09:55 Attending Physician Lori Pearl DO PCP Ben Parker DO Referring Physician Date of Admission Nov 07, 2020 at 19:56 Home Medications & Allergies Home Medications Reviewed patient Home Medication Reconciliation performed by pharmacy medication reconciliations instructor adjunct pharmacy technician and/or nursing. Patients Allergies have been reviewed. Allergies Allergies Coded Allergies No Known Drug Allergies (Unverified08/08/13) Past Mvnjmxa-Dnstmr-Ebuhxs Hx Past Med/Social Hx: Reviewed Nursing Past Med/Soc Hx Patient Social History 2nd Hand Smoke Exposure: No Recent Foreign Travel: No Contact w/other who traveled: No Recent Hopitalizations: No Recent Infectious Disease Expo: No Immunizations Up To Date Tetanus Booster (TDap): Unknown Pediatric: No Date of Pneumonia Vaccine: Aug 29, 2009 Date of Influenza Vaccine: Sep 29, 2017 Seasonal Allergies Seasonal Allergies: No Past Medical History Currently Using CPAP: No Currently Using BIPAP: No Neurological: Developmental Disorder, Seizure Disorder Reproductive: No Sexually Transmitted Disease: No HIV/AIDS: No Gastrointestinal: Gastroesophageal Reflux, Gastrointestinal Bleed, Chronic Constipation, Esophagitis, Ulcer, Gall Bladder Disease Loss of Vision: Denies Psychosocial: Anxiety History of Blood Disorders: No Family History Reviewed Nursing Family Hx Patient reports no known family medical history. No Pertinent Family Hx Review of Systems ROS-Unable to Obtain: nonverbal Constitutional: no symptoms reported, see HPI Physical Exam Physical Exam Vital Signs Vital Signs - First Documented 11/07/20 11/07/20 11/07/20 15:04 20:12 20:35 Temp 35.0 Pulse 60 Resp 18 B/P (MAP) 85/62 (70) Pulse Ox 100 O2 Delivery Room Air Capillary Refill : Less Than 3 Seconds Height, Weight, BMI Height: 5'6.00" Weight: 139lbs. 0.0oz. 63.220356rx; 17.75 BMI Method:Actual General Appearance: No Apparent Distress, Chronically ill HEENT: PERRL/EOMI, Other (dry mucous membranes) Neck: Normal Inspection, Supple Respiratory: No Respiratory Distress, Other (coarse breath sounds bilaterally) Cardiovascular: Regular Rate, Rhythm, No Edema, No Murmur Gastrointestinal: Normal Bowel Sounds, Non Tender, Soft Extremity: Normal Inspection, Non Tender, No Pedal Edema Neurologic/Psychiatric: Alert, Oriented x3, No Motor/Sensory Deficits, Normal Mood/Affect Skin: Normal Color, Warm/Dry Results Results/Procedures Labs Laboratory Tests 11/07/20 14:57 11/08/20 04:20 Patient resulted labs reviewed. Imaging: Reviewed Imaging Report Assessment/Plan Admission Diagnosis Aspiration pneumonia Admission Status: Inpatient Order (span 2 midnights) Reason for Inpatient Admission: Aspiration PNA requiring IV antibiotics Assessment and Plan Aspiration pneumonia Not septic Chest xray and CT revealed right lower lobe pneumonia, likely aspiration Swallow evaluation revealed dysphagia, recommend pureed diet with nectar thick liquids Started on Vanc and Zosyn Esophageal thickening Esophagitis Gastritis GERD Consult general surgery, appreciate assistance PPI Pancytopenia WBC 3.1, Hgb 8.8, Plt 58 Check iron studies and folate Continue to monitor Hematuria Likely due to traumatic luciano Continue to monitor Consult urology if persists Intellectual disability Clinically significant, no acute management needs DVT Prophylaxis: held due to hematuria Diagnosis/Problems Diagnosis/Problems (1) Aspiration pneumonia Status: Acute (2) Esophageal thickening Status: Acute (3) Gastritis Status: Acute (4) Esophagitis Status: Acute (5) Pancytopenia Status: Acute (6) Intellectual disability Status: Chronic Clinical Quality Measures DVT/VTE Risk/Contraindication: Risk Factor Score Per Nursin RFS Level Per Nursing on Admit: 2=Moderate ELYSSA ANTUNEZ MD Nov 08, 2020 15:08
[2020-11-08 15:58] VITALS: BP 82/54
[2020-11-08 18:13] VITALS: BP 102/67
[2020-11-08 19:41] VITALS: BP 96/61
[2020-11-08] MEDS: VANCOMYCIN 1 GM/NS 250 ML IVPB IV SCH ×2 (21:06)
[2020-11-09 00:04] VITALS: BP 111/74
[2020-11-09 04:00] VITALS: BP 117/74
[2020-11-09] MEDS: NS IV 1000 ML 1,000 ML IV SCH ×4 (05:20→17:45)
[2020-11-09] MEDS: PIPERACILLIN/TAZO 4.5 GM/NS 100 ML IV SCH ×6 (05:20→19:56)
[2020-11-09 08:00] VITALS: BP 99/70
[2020-11-09] MEDS: PANTOPRAZOLE 40 MG (PROTONIX) VIAL IV SCH (08:42)
--- NOTE | 2020-11-09 11:33 | Progress Note - Hospitalist ---
Subjective HPI/CC On Admission Date Seen by Provider: Nov 09, 2020 Time Seen by Provider: 09:30 Jd Neves is a 65-year-old male with intellectual disability residing in a [facility] who presented with lethargy, nausea, and vomiting. Due to his intellectual disability has a poor historian and is unable to provide any history. His reportedly been having issues with nausea and vomiting for quite some time. This seems to be associated with meals. He has also had decreased urine output. He has had previous admissions with esophagitis and gastritis. He has also had an admission due to a small bowel obstruction. Subjective/Events-last exam Patient nonverbal respiratory rates around 10 appears to be in no acute distress. Focused Exam Lactate Level 11/07/20 19:30: Lactic Acid Level 0.56 Objective Exam Vital Signs Vital Signs Date Time Temp Pulse Resp B/P (MAP) Pulse Ox O2 Delivery O2 Flow Rate FiO2 11/09/20 08:00 36.0 58 16 99/70 (80) 94 Room Air Capillary Refill : Less Than 3 SecondsLess Than 3 Seconds General Appearance: No Apparent Distress Respiratory: Chest Non Tender, Lungs Clear, Normal Breath Sounds, No Accessory Muscle Use, No Respiratory Distress Cardiovascular: Regular Rate, Rhythm, No Edema, No Gallop, No JVD, No Murmur, Normal Peripheral Pulses Gastrointestinal: Normal Bowel Sounds, No Organomegaly, No Pulsatile Mass, Non Tender, Soft Results/Procedures Lab Patient resulted labs reviewed. Imaging: Reviewed Imaging Report Assessment/Plan Assessment and Plan Assess & Plan/Chief Complaint Aspiration pneumonia Not septic Chest xray and CT revealed right lower lobe pneumonia, likely aspiration Swallow evaluation revealed dysphagia, recommend pureed diet with nectar thick liquids Started on Vanc and Zosyn Esophageal thickening Esophagitis Gastritis GERD Consult general surgery, appreciate assistance PPI Pancytopenia WBC 3.1, Hgb 8.8, Plt 58 Check iron studies and folate Continue to monitor Hematuria Likely due to traumatic luciano Continue to monitor Consult urology if persists Intellectual disability Clinically significant, no acute management needs DVT Prophylaxis: held due to hematuria And pancytopenia Clinical Quality Measures DVT/VTE Risk/Contraindication: Risk Factor Score Per Nursin RFS Level Per Nursing on Admit: 2=Moderate NATHANAEL CASTILLO MD Nov 09, 2020 11:33
--- NOTE | 2020-11-09 11:56 | Progress Note ---
Subjective Date Seen by a Provider: Nov 09, 2020 Time Seen by a Provider: 10:15 Subjective/Events-last exam Patient seen with Dr. Conner. Unable to obtain any information from patient. RN reports patient has been doing well with no nausea or vomiting. Focused Exam Lactate Level 11/07/20 19:30: Lactic Acid Level 0.56 Objective Exam Vital Signs Date Time Temp Pulse Resp B/P (MAP) Pulse Ox O2 Delivery O2 Flow Rate FiO2 11/09/20 08:00 36.0 58 16 99/70 (80) 94 Room Air 11/09/20 04:00 36.6 60 18 117/74 (88) 96 Room Air 11/09/20 00:04 36.0 61 18 111/74 (86) 98 Room Air 11/08/20 20:30 Room Air 11/08/20 19:41 35.8 69 16 96/61 (73) 98 Room Air 11/08/20 18:13 76 102/67 (79) 11/08/20 15:58 35.7 63 16 82/54 (63) 98 Room Air 11/08/20 12:00 35.5 66 16 102/71 (81) 100 Room Air I & O 11/09/20 07:00 Intake Total 700 ml Output Total 650 ml Balance 50 ml Capillary Refill : Less Than 3 SecondsLess Than 3 Seconds General Appearance: No Apparent Distress, WD/WN Neck: Full Range of Motion, Normal Inspection Respiratory: Normal Breath Sounds, No Accessory Muscle Use, No Respiratory Distress Cardiovascular: Regular Rate, Rhythm, No Edema Gastrointestinal: normal bowel sounds, non tender, soft Extremity: Normal Inspection, Normal Range of Motion Neurologic/Psychiatric: Alert, Other Skin: Normal Color, Warm/Dry Results Lab Microbiology 11/07/20 Blood Culture - Preliminary, Resulted No growth Assessment/Plan Assessment/Plan Assess & Plan/Chief Complaint A 65 year old male with intellectual disability, Right lower lobe pneumonia, Nausea/vomiting, GERD, Esophagitis/Gastritis, Hypoglycemia, Seizure disorder, Anemia, Leukopenia, Thrombocytopenia, Elevated amylase/lipase, Dysphagia by swallow eval VSS Continue PPI IV hydration Repeat labs Would recommend endoscopy inpatient vs outpatient Follow labs No acute surgical issues at this time Clinical Quality Measures DVT/VTE Risk/Contraindication: Risk Factor Score Per Nursin RFS Level Per Nursing on Admit: 2=Moderate ALICIA BARRIOS PROCESSING ENGINEER Nov 09, 2020 11:56
[2020-11-09 12:00] VITALS: BP 114/72
[2020-11-09 16:26] VITALS: BP 96/58
[2020-11-09 19:43] VITALS: BP 111/62
[2020-11-09] MEDS ORDERED: TROUGH ORDER-PHARMACY XX NR (21:00)
[2020-11-09] MEDS: VANCOMYCIN 1 GM/NS 250 ML IVPB IV SCH ×2 (23:09)
[2020-11-10] VITALS (7 sets, daily range): BP systolic 92–115; BP diastolic 53–68
[2020-11-10] MEDS: NS IV 1000 ML 1,000 ML IV SCH ×3 (02:55→19:17)
[2020-11-10] MEDS: PIPERACILLIN/TAZO 4.5 GM/NS 100 ML IV SCH ×6 (04:07→20:29)
[2020-11-10 07:09] LABS: BASOPHILS % (AUTO) 0 % (0-10); EOSINOPHILS % (AUTO) 1 % (0-10); HEMATOCRIT 28 % (40-54); HEMOGLOBIN 8.3 g/dL (13.3-17.7); LYMPHOCYTES # (AUTO) 0.5 10^3/uL (1.0-4.0); LYMPHOCYTES % (AUTO) 14 % (12-44); MEAN CORPUSCULAR HEMOGLOBIN 29 pg (25-34); MEAN CORPUSCULAR HGB CONC 30 g/dL (32-36); MEAN CORPUSCULAR VOLUME 95 fL (80-99); MEAN PLATELET VOLUME 12.2 fL (9.0-12.2); MONOCYTES # (AUTO) 0.2 10^3/uL (0.0-1.0); MONOCYTES % (AUTO) 7 % (0-12); NEUTROPHILS # (AUTO) 2.7 10^3/uL (1.8-7.8); NEUTROPHILS % (AUTO) 77 % (42-75); PLATELET COUNT 47 10^3/uL (130-400); WHITE BLOOD COUNT 3.5 10^3/uL (4.3-11.0)
[2020-11-10] MEDS: PANTOPRAZOLE 40 MG (PROTONIX) VIAL IV SCH (07:56)
--- NOTE | 2020-11-10 10:30 | Progress Note ---
Subjective Date Seen by a Provider: Nov 10, 2020 Time Seen by a Provider: 09:45 Subjective/Events-last exam Patient seen with Dr. Conner. Patient nonverbal and unable to obtain ROS. RN reports no vomiting and signs of pain. Focused Exam Lactate Level 11/07/20 19:30: Lactic Acid Level 0.56 Objective Exam Vital Signs Date Time Temp Pulse Resp B/P (MAP) Pulse Ox O2 Delivery O2 Flow Rate FiO2 11/10/20 08:57 Room Air 11/10/20 08:00 35.9 54 16 101/60 (74) 94 Room Air 11/10/20 04:00 35.8 54 16 92/53 (66) 95 Room Air 11/10/20 00:00 35.8 55 18 92/53 (66) 94 Room Air 11/09/20 19:45 Room Air 11/09/20 19:43 36.2 68 20 111/62 (78) 96 Room Air 11/09/20 16:26 36.1 71 16 96/58 (71) 97 Room Air 11/09/20 12:00 36.3 64 16 114/72 (86) 95 Room Air I & O 11/10/20 07:00 Intake Total 3870 ml Output Total 775 ml Balance 3095 ml Capillary Refill : Less Than 3 SecondsLess Than 3 Seconds General Appearance: No Apparent Distress, WD/WN Neck: Full Range of Motion, Normal Inspection Respiratory: Normal Breath Sounds, No Accessory Muscle Use, No Respiratory Distress Cardiovascular: Regular Rate, Rhythm, No Edema Gastrointestinal: normal bowel sounds, non tender, soft Extremity: Normal Inspection, Normal Range of Motion Neurologic/Psychiatric: Alert, Other Skin: Normal Color, Warm/Dry Results Lab Laboratory Tests 11/09/20 20:50: Vancomycin Level Trough 11.5 11/10/20 06:25: White Blood Count 3.5L, Red Blood Count 2.91L, Hemoglobin 8.3L, Hematocrit 28L, Mean Corpuscular Volume 95, Mean Corpuscular Hemoglobin 29, Mean Corpuscular Hemoglobin Concent 30L, Red Cell Distribution Width 16.8H, Platelet Count 47L, Mean Platelet Volume 12.2, Immature Granulocyte % (Auto) 1, Neutrophils (%) (Auto) 77H, Lymphocytes (%) (Auto) 14, Monocytes (%) (Auto) 7, Eosinophils (%) (Auto) 1, Basophils (%) (Auto) 0, Neutrophils # (Auto) 2.7, Lymphocytes # (Auto) 0.5L, Monocytes # (Auto) 0.2, Eosinophils # (Auto) 0.0, Basophils # (Auto) 0.0, Immature Granulocyte # (Auto) 0.0 Microbiology 11/07/20 Blood Culture - Preliminary, Resulted No growth Assessment/Plan Assessment/Plan Assess & Plan/Chief Complaint A 65 year old male with intellectual disability, Right lower lobe pneumonia, Nausea/vomiting, GERD, Esophagitis/Gastritis, Hypoglycemia, Seizure disorder, Anemia, Leukopenia, Thrombocytopenia, Elevated amylase/lipase, Dysphagia by swallow eval VSS Continue PPI IV hydration Repeat labs Outpatient upper endoscopy unless patient's symptoms become worse Follow labs No acute surgical issues at this time Clinical Quality Measures DVT/VTE Risk/Contraindication: Risk Factor Score Per Nursin RFS Level Per Nursing on Admit: 2=Moderate ALICIA BARRIOS SOCCER PLAYER Nov 10, 2020 10:30
--- NOTE | 2020-11-10 10:33 | Progress Note - Hospitalist ---
Subjective HPI/CC On Admission Date Seen by Provider: Nov 10, 2020 Time Seen by Provider: 09:00 Jd Neves is a 65-year-old male with intellectual disability residing in a skilled nursing who presented with lethargy, nausea, and vomiting. Due to his intellectual disability has a poor historian and is unable to provide any history. His reportedly been having issues with nausea and vomiting for quite some time. This seems to be associated with meals. He has also had decreased urine output. He has had previous admissions with esophagitis and gastritis. He has also had an admission due to a small bowel obstruction. Subjective/Events-last exam Patient noncommunicative which is his baseline appears to be in no acute distress and staff report he has not appear to be in any type of pain with no agitation. Appetite has been poor with no vomiting. Focused Exam Lactate Level 11/07/20 19:30: Lactic Acid Level 0.56 Objective Exam Vital Signs Vital Signs Date Time Temp Pulse Resp B/P (MAP) Pulse Ox O2 Delivery O2 Flow Rate FiO2 11/10/20 08:57 Room Air 11/10/20 08:00 35.9 54 16 101/60 (74) 94 Capillary Refill : Less Than 3 SecondsLess Than 3 Seconds General Appearance: No Apparent Distress Respiratory: Chest Non Tender, Lungs Clear, Normal Breath Sounds, No Accessory Muscle Use, No Respiratory Distress Cardiovascular: Regular Rate, Rhythm, No Edema, No Gallop, No JVD, No Murmur, Normal Peripheral Pulses Gastrointestinal: Normal Bowel Sounds, No Organomegaly, No Pulsatile Mass, Non Tender (No distention is noted and there is no reaction by the patient to palpation of the abdomen.), Soft Results/Procedures Lab Laboratory Tests 11/10/20 06:25 Patient resulted labs reviewed. Imaging: Reviewed Imaging Report Assessment/Plan Assessment and Plan Assess & Plan/Chief Complaint Aspiration pneumonia Not septic Chest xray and CT revealed right lower lobe pneumonia, likely aspiration Swallow evaluation revealed dysphagia, recommend pureed diet with nectar thick liquids Started on Vanc and Zosyn Esophageal thickening Esophagitis Gastritis GERD Consult general surgery, appreciate assistance PPI Pancytopenia Counts improving slightly Continue to monitor Check iron studies and folate Continue to monitor Hematuria Likely due to traumatic luciano Continue to monitor Consult urology if persists Intellectual disability Clinically significant, no acute management needs DVT Prophylaxis: held due to hematuria And pancytopenia Presumed acute pancreatitis due to elevated amylase and lipase levels appears to be minimally symptomatic repeat levels in the morning CT scan of the abdomen did not reveal pancreatic abnormality. Clinical Quality Measures DVT/VTE Risk/Contraindication: Risk Factor Score Per Nursin RFS Level Per Nursing on Admit: 2=Moderate NATHANAEL CASTILLO MD Nov 10, 2020 10:33
--- NOTE | 2020-11-10 12:51 | NUR ---
ATTEMPTED TO FEED DYS 1 LUNCH. APPEARS TO HAVE DIFFICULTY SWALLOWING AND IS COUGHING UP PUDDING. UNSURE IF IT WAS PUDDING FROM MOUTH OR IF PT ASPIRATING. ONLY GIVEN 2 BITES OF PUDDING AND SLOW TO SWALLOW, BUT DID EVENTUALLY SWALLOW EACH TIME. MADE NPO PRECAUTION AND ST DYS EVAL REORDERED.
[2020-11-10] MEDS ORDERED: TROUGH ORDER-PHARMACY XX NR (21:00)
[2020-11-10] MEDS ORDERED: VANCOMYCIN INJECTION 1,250 MG in NS (IVPB) 250 ML IV SCH (22:00)
[2020-11-11 03:48] VITALS: BP 104/63
[2020-11-11] MEDS: PIPERACILLIN/TAZO 4.5 GM/NS 100 ML IV SCH ×6 (04:32→19:54)
[2020-11-11 05:23] LABS: BASOPHILS % (AUTO) 0 % (0-10); EOSINOPHILS % (AUTO) 1 % (0-10); HEMATOCRIT 27 % (40-54); HEMOGLOBIN 8.4 g/dL (13.3-17.7); LYMPHOCYTES # (AUTO) 0.5 10^3/uL (1.0-4.0); LYMPHOCYTES % (AUTO) 14 % (12-44); MEAN CORPUSCULAR HEMOGLOBIN 29 pg (25-34); MEAN CORPUSCULAR HGB CONC 31 g/dL (32-36); MEAN CORPUSCULAR VOLUME 92 fL (80-99); MEAN PLATELET VOLUME 12.9 fL (9.0-12.2); MONOCYTES # (AUTO) 0.2 10^3/uL (0.0-1.0); MONOCYTES % (AUTO) 5 % (0-12); NEUTROPHILS # (AUTO) 2.5 10^3/uL (1.8-7.8); NEUTROPHILS % (AUTO) 79 % (42-75); PLATELET COUNT 47 10^3/uL (130-400); WHITE BLOOD COUNT 3.1 10^3/uL (4.3-11.0)
[2020-11-11 05:41] LABS: ALBUMIN 2.3 GM/DL (3.2-4.5)
[2020-11-11 05:42] LABS: CHLORIDE 122 MMOL/L (98-107); POTASSIUM 4.7 MMOL/L (3.6-5.0); SODIUM 148 MMOL/L (135-145)
[2020-11-11 05:43] LABS: CALCIUM 8.1 MG/DL (8.5-10.1)
[2020-11-11 05:44] LABS: TOTAL PROTEIN 5.3 GM/DL (6.4-8.2)
[2020-11-11 05:45] LABS: CARBON DIOXIDE 17 MMOL/L (21-32)
[2020-11-11 05:46] LABS: BILIRUBIN,TOTAL 0.3 MG/DL (0.1-1.0)
[2020-11-11 05:47] LABS: ALKALINE PHOSPHATASE 106 U/L (40-136)
[2020-11-11 05:48] LABS: CREATININE SERUM 0.82 MG/DL (0.60-1.30)
[2020-11-11 05:49] LABS: BUN/CREATININE RATIO 32
[2020-11-11 05:51] LABS: ALANINE AMINOTRANSFERASE 28 U/L (0-55); LIPASE 46 U/L (8-78)
[2020-11-11 05:55] LABS: GFR ESTIMATED > 60
[2020-11-11 05:58] LABS: GLUCOSE 45 MG/DL (70-105)
[2020-11-11] MEDS ORDERED: D5 NS 1000 ML IV SOLUTION 1,000 ML IV ONE (06:07)
[2020-11-11] MEDS ORDERED: DEXTROSE 50% 50 ML (IMS) SYR ONE (06:07)
[2020-11-11] MEDS: D5 NS 1000 ML IV SOLUTION 1,000 ML IV SCH ×3 (06:10→19:54)
[2020-11-11] MEDS ORDERED: DEXTROSE 50% 50 ML (IMS) SYR IV ONE (06:15)
--- NOTE | 2020-11-11 07:00 | NUR ---
Notified by lab that patient glucose is 45. This nurse notified Dr Rosado and received an order for 1/2 amp of D50 once now and change fluids to D5NS at 100ml/hr. Recheck of glucose is 114.
[2020-11-11] MEDS: PANTOPRAZOLE 40 MG (PROTONIX) VIAL IV SCH (07:38)
--- NOTE | 2020-11-11 07:48 | Progress Note - Surgery ---
DONNIE BUI MED STUDENT 11/11/20 0748: Subjective Date Seen by a Provider: Nov 11, 2020 Time Seen by a Provider: 07:20 Subjective/Events-last exam Pt seen and examined. Resting in bed, NAD. Pt has intellectual disability and does not respond to questioning. Pt did not appear to be in distress. Continues to have trouble feeding per staff Review of Systems Unable to obtain, pt is noncommunicative Objective Exam Vital Signs Date Time Temp Pulse Resp B/P (MAP) Pulse Ox O2 Delivery O2 Flow Rate FiO2 11/11/20 03:48 36.0 51 16 104/63 (77) 90 Room Air 11/10/20 23:47 36.0 54 16 102/64 (77) 93 Room Air 11/10/20 20:45 36.4 58 20 106/54 (71) 96 Room Air 11/10/20 20:41 Room Air 11/10/20 16:18 36.1 55 18 102/56 (71) 95 Room Air 11/10/20 12:00 36.2 52 16 115/68 (84) 96 Room Air 11/10/20 08:57 Room Air 11/10/20 08:00 35.9 54 16 101/60 (74) 94 Room Air I & O 11/11/20 07:00 Intake Total 1240 ml Output Total 625 ml Balance 615 ml Capillary Refill : Less Than 3 SecondsLess Than 3 Seconds General Appearance: No Apparent Distress, Thin HEENT: PERRL/EOMI, Other (dry mucous membranes) Neck: Full Range of Motion, Normal Inspection Respiratory: Chest Non Tender, Lungs Clear, Normal Breath Sounds, No Accessory Muscle Use, No Respiratory Distress Cardiovascular: Regular Rate, Rhythm, No Gallop, No JVD, No Murmur, Normal Peripheral Pulses, Other (mild non-pitting edema to B hands/feet) Gastrointestinal: normal bowel sounds, non tender, soft Extremity: Normal Inspection, Normal Range of Motion Neurologic/Psychiatric: Alert, No Motor/Sensory Deficits Skin: Normal Color, Warm/Dry Results Lab Laboratory Tests 11/11/20 04:35: White Blood Count 3.1L, Red Blood Count 2.93L, Hemoglobin 8.4L, Hematocrit 27L, Mean Corpuscular Volume 92, Mean Corpuscular Hemoglobin 29, Mean Corpuscular Hemoglobin Concent 31L, Red Cell Distribution Width 16.7H, Platelet Count 47L, Mean Platelet Volume 12.9H, Immature Granulocyte % (Auto) 1, Neutrophils (%) (Auto) 79H, Lymphocytes (%) (Auto) 14, Monocytes (%) (Auto) 5, Eosinophils (%) (Auto) 1, Basophils (%) (Auto) 0, Neutrophils # (Auto) 2.5, Lymphocytes # (Auto) 0.5L, Monocytes # (Auto) 0.2, Eosinophils # (Auto) 0.0, Basophils # (Auto) 0.0, Immature Granulocyte # (Auto) 0.0, Sodium Level 148H, Potassium Level 4.7, Chloride Level 122H, Carbon Dioxide Level 17L, Anion Gap 9, Blood Urea Nitrogen 26H, Creatinine 0.82, Estimat Glomerular Filtration Rate > 60, BUN/Creatinine Ratio 32, Glucose Level 45*L, Calcium Level 8.1L, Corrected Calcium 9.5, Total Bilirubin 0.3, Aspartate Amino Transf (AST/SGOT) 29, Alanine Aminotransferase (ALT/SGPT) 28, Alkaline Phosphatase 106, Total Protein 5.3L, Albumin 2.3L, Lipase 46 11/11/20 07:04: Glucometer 114H Microbiology 11/07/20 Blood Culture - Preliminary, Resulted No growth Assessment/Plan Assessment/Plan Assessment/Plan Right lower lobe pneumonia Nausea/vomiting GERD Esophagitis/Gastritis by CT Hypoglycemia Intellectual disability Seizure disorder Anemia Leukopenia Thrombocytopenia Elevated amylase/lipase Dysphagia by swallow eval Continue PPI, IV hydration, repeat labs. No apparent pain/discomfort associated with abd. No acute surgical issues noted at this time. Would recommend endoscopy inpatient vs outpatient Follow labs Clinical Quality Measures DVT/VTE Risk/Contraindication: Risk Factor Score Per Nursin RFS Level Per Nursing on Admit: 2=Moderate KARYN SMITH DO 11/12/20 0806: Subjective Subjective/Events-last exam Patient nonverbal. In no acute distress. Difficulty eating. Objective Exam General Appearance: No Apparent Distress HEENT: PERRL/EOMI Neck: Normal Inspection Respiratory: Chest Non Tender, No Accessory Muscle Use, No Respiratory Distress Cardiovascular: Regular Rate, Rhythm Gastrointestinal: non tender, soft Neurologic/Psychiatric: Alert, Other (nonverbal) Skin: Normal Color, Warm/Dry Lymphatic: No Adenopathy Assessment/Plan Assessment/Plan Assessment/Plan Right lower lobe pneumonia Nausea/vomiting GERD Esophagitis/Gastritis by CT Hypoglycemia Intellectual disability Seizure disorder Anemia Leukopenia Thrombocytopenia Elevated amylase/lipase Dysphagia by swallow eval Discussed with Dr. Gage would like PEG tube placed and EGD. Will arrange for tomorrow. Obtain consent. NPO after midnight Supervisory-Addendum Brief Verification & Attestation Participated in pt care: history, MDM, physical Personally performed: exam, history, MDM, supervision of care Care discussed with: Medical Student Procedures: n/a Results interpretation: Verified all documentation Verification and Attestation of Medical Student E/M Service A medical student performed and documented this service in my presence. I reviewed and verified all information documented by the medical student and made modifications to such information, when appropriate. I personally performed the physical exam and medical decision making. Karyn Smith, Nov 11, 2020,18:06 DONNIE BUI MED STUDENT Nov 11, 2020 07:48 KARYN SMITH DO Nov 12, 2020 08:06
[2020-11-11 08:00] VITALS: BP 160/61
--- NOTE | 2020-11-11 08:26 | NUR ---
Received dietary consult for MST score. Pt meets criteria for malnutrition, per ASPEN guidelines. Refer for nutrition note on 11/08 for assessment. Malorie Brooks MS RD LD [phone] cell
--- NOTE | 2020-11-11 10:28 | Progress Note - Hospitalist ---
PRATIK EVANGELISTA MED STUDENT 11/11/20 1028: Subjective HPI/CC On Admission Date Seen by Provider: Nov 11, 2020 Time Seen by Provider: 10:00 Jd Neves is a 65-year-old male with intellectual disability residing in a correction who presented with lethargy, nausea, and vomiting. Due to his intellectual disability has a poor historian and is unable to provide any history. His reportedly been having issues with nausea and vomiting for quite some time. This seems to be associated with meals. He has also had decreased urine output. He has had previous admissions with esophagitis and gastritis. He has also had an admission due to a small bowel obstruction. Subjective/Events-last exam Per chart review, Jd is here for lethargy, nausea and vomiting. He has also been having trouble with post-prandial vomiting, as well as, swallowing. He has had a decreased oral intake and has been put on NPO status for coughing while drinking and eating. He has an intellectual disability and is non-verbal. Pt is a poor historian. Past medical history includes esophageal thickening, gastritis, GERD, small bowel obstruction and chronic constipation. Today, pt was unresponsive, but slightly awake. He denied any pain. Pt has not had a bowel movement today. Review of Systems General: Other (Unable to obtain due to non-verbal status ) HEENT: Other (Unable to obtain due to non-verbal status ) Pulmonary: Other (Unable to obtain due to non-verbal status ) Cardiovascular: Other (Unable to obtain due to non-verbal status ) Gastrointestinal: Other (Unable to obtain due to non-verbal status ) Genitourinary: Other (Unable to obtain due to non-verbal status ) Objective Exam Vital Signs Vital Signs Date Time Temp Pulse Resp B/P (MAP) Pulse Ox O2 Delivery O2 Flow Rate FiO2 11/11/20 03:48 36.0 51 16 104/63 (77) 90 Room Air Capillary Refill : Less Than 3 SecondsLess Than 3 Seconds General Appearance: No Apparent Distress, Thin HEENT: PERRL/EOMI; No Scleral Icterus (L), No Scleral Icterus (R) Neck: Non Tender, Supple; No Lymphadenopathy (L), No Lymphadenopathy (R) Respiratory: Chest Non Tender, No Accessory Muscle Use, No Respiratory Distress, Other (Bradytachypnea ) Cardiovascular: No Edema, No Murmur, Normal Peripheral Pulses, Bradycardia Gastrointestinal: Normal Bowel Sounds, Non Tender, Soft Extremity: Normal Capillary Refill, No Pedal Edema Neurologic/Psychiatric: Other (Intellectual Disability ) Skin: Normal Color, Cool; No Diaphoresis Lymphatic: No Adenopathy Results/Procedures Lab Laboratory Tests 11/11/20 04:35 Patient resulted labs reviewed. Imaging: Reviewed Imaging Report Assessment/Plan Assessment and Plan Assess & Plan/Chief Complaint Aspiration Pneumonia Chest x-ray- RLL consolidation Continue piperacillin/tazobactam @30 mls/hr currently on Evaluation by Speech therapy being done today for swallowing Hypoglycemia Currently on D5w/NaCl @100 mls/hr Switch to D5w Consider central line placement and transition to total parenteral nutrition Gastroesophageal Reflux disease Continue Protonix injection, 40 mg, IV, qd Pancytopenia Most likely due to nutritional status Continue D5w Consider central line placement and transition to total parenteral nutrition Thrombocytopenia could be due to Protonix, monitor platelet levels closely History of Esophageal thickening Surgery is already on board, appreciate consultation EGD being considered as outpatient, most likely needs to be done during inpatient status History of Gastritis Surgery is already on board, appreciate consultation EGD being considered as outpatient, most likely needs to be done during inpatient status Intellectual Disability No acute management needed DVT Prophylaxis Continue use of sequential compression devices Clinical Quality Measures DVT/VTE Risk/Contraindication: Risk Factor Score Per Nursin RFS Level Per Nursing on Admit: 2=Moderate YANDY GAGE MD 11/11/20 2764: Assessment/Plan Assessment and Plan Assess & Plan/Chief Complaint Will switch to D5W for hypglycemia and hyperchloremia. Discussed with surgery and goal is for EGD and PEG placement at the same time. Discussed with his brother who is the guardian and he agrees with this plan. Overall still has a poor prognosis and informed brother of continued risk of aspiration following PEG but that we could provide appropriate nutrition with PEG. Supervisory-Addendum Brief Verification & Attestation Participated in pt care: history, MDM, physical Personally performed: exam, history, MDM, supervision of care Care discussed with: Medical Student Procedures: n/a Results interpretation: Verified all documentation Verification and Attestation of Medical Student E/M Service A medical student performed and documented this service in my presence. I reviewed and verified all information documented by the medical student and made modifications to such information, when appropriate. I personally performed the physical exam and medical decision making. Yandy Gage, Nov 11, 2020,19:08 PRATIK EVANGELISTA MED STUDENT Nov 11, 2020 10:28 YANDY GAGE MD Nov 11, 2020 19:08
[2020-11-11 12:00] VITALS: BP 93/54
--- NOTE | 2020-11-11 12:54 | NUR ---
REMAINS NPO. BLOOD SUGAR 125. MOUTH CARE DONE. TURNED AND REPOSITIONED. SKIN CARE GIVEN.
[2020-11-11] MEDS: NS IV 1000 ML 1,000 ML IV SCH ×2 (14:23→19:36)
--- NOTE | 2020-11-11 14:50 | NUR ---
CLARKE CATH WITH 50 CC REDDISH URINE IN CLARKE BAG. LEAKING MOD. AMT URINE REDDISH AROUND CLARKE CATH. REMOVED CLARKE CATH AND LARGE BLOOD CLOT AT END OF CATHETER. DR. ELENA NOTIFIED.
--- NOTE | 2020-11-11 14:52 | NUR ---
Discussed with Dr. Gage about of plan of care. Plan of care is for the pt to possibly receive a PEG tube as he is consuming very little orally. If pt does receive PEG tube, would recommend the following TF: Jevity 1.5 at goal rate of 45ml/hr. Begin at 15ml/hr and increase by 10ml q12h as tolerated. At goal rate, provides 1620 kcal (34 kcal/kg); 69 g Pro (1.4 g Pro/kg); and 821ml free water. Flush with 125ml free water, for hydration status. With flushes, provides 1571ml free water. Will continue to follow and reassess as pt needs, intake, and status change. MS DANO Vázquez [phone] cell Addendum: 11/13/20 at [address] Recommend flush with 125ml free water q4h for hydration status. MS DANO EVANS
--- NOTE | 2020-11-11 15:16 | NUR ---
# 16 CLARKE CATH INSERTED EASILY WITH 10 CC BALLOON. 10 CC REDDISH URINE RETURNED AND LARGE AMT. REDDISH URINE LEAKED AROUND CLARKE CATH AFTER INSERTION. FLUSHED CLARKE CATH WITH 20 CC STERILE WATER. NO LEAKAGE AT THIS TIME. 10 CC PINKISH URINE RETURNED IN CLARKE CATH, MARITO. WELL.
--- NOTE | 2020-11-11 15:40 | Speech Therapy Progress Note ---
Therapy Progress Note Bedside Dysphagia evaluation order received. Notified nurse that MARZIPAN MAKER is not available today. Educated nurse on the nursing bedside swallow assessment. MARZIPAN MAKER to follow 11/12/2020 RON HILLIARD PT Nov 11, 2020 15:40
[2020-11-11 16:00] VITALS: BP 104/56
--- NOTE | 2020-11-11 17:30 | NUR ---
URINE CLOUDY ORANGES/REDDISH.
[2020-11-11 19:42] VITALS: BP 99/57
[2020-11-12] VITALS (9 sets, daily range): BP systolic 79–111; BP diastolic 48–72
[2020-11-12] MEDS: NS IV 1000 ML 1,000 ML IV SCH (01:18)
[2020-11-12] MEDS: PIPERACILLIN/TAZO 4.5 GM/NS 100 ML IV SCH ×4 (04:39→13:22)
--- NOTE | 2020-11-12 06:44 | Progress Note - Surgery ---
DONNIE BUI MED STUDENT 11/12/20 0644: Subjective Date Seen by a Provider: Nov 12, 2020 Time Seen by a Provider: 06:10 Subjective/Events-last exam Pt seen and examined. Resting in bed, NAD. Pt is nonverbal and does not respond to questioning, but does not appear to be in pain or distress. Review of Systems Genitourinary: Hematuria Unable to obtain, pt is noncommunicative Objective Exam Vital Signs Date Time Temp Pulse Resp B/P (MAP) Pulse Ox O2 Delivery O2 Flow Rate FiO2 11/12/20 03:50 36.0 58 20 111/60 (77) 93 Room Air 11/12/20 00:01 36.1 54 16 109/62 (78) 94 Room Air 11/11/20 19:54 Room Air 11/11/20 19:42 35.5 48 18 99/57 (71) 95 Room Air 11/11/20 16:00 35.6 48 16 104/56 (72) 95 Room Air 11/11/20 12:00 35.8 49 16 93/54 (67) 90 Room Air 11/11/20 08:00 Room Air 11/11/20 08:00 35.9 44 16 160/61 (94) 90 Room Air I & O 11/12/20 07:00 Intake Total 2360 ml Output Total 425 ml Balance 1935 ml Capillary Refill : Less Than 3 SecondsLess Than 3 Seconds General Appearance: No Apparent Distress, Thin HEENT: PERRL/EOMI Neck: Normal Inspection, Non Tender, Supple Respiratory: Chest Non Tender, No Accessory Muscle Use, No Respiratory Distress, Other (coarse breath sounds bilaterally) Cardiovascular: No Murmur, Normal Peripheral Pulses, Bradycardia, Other (Moderate nonpitting edema to hands/feet) Gastrointestinal: normal bowel sounds, non tender, soft Extremity: Normal Capillary Refill, No Pedal Edema Neurologic/Psychiatric: Alert, Other (Intellectual Disability) Skin: Normal Color, Warm/Dry Lymphatic: No Adenopathy Results Lab Laboratory Tests 11/11/20 07:04: Glucometer 114H 11/11/20 12:54: Glucometer 125H Microbiology 11/07/20 Blood Culture - Preliminary, Resulted No growth Assessment/Plan Assessment/Plan Assessment/Plan Right lower lobe pneumonia Nausea/vomiting GERD Esophagitis/Gastritis by CT Hypoglycemia Hematuria Oliguria Intellectual disability Seizure disorder Anemia Leukopenia Thrombocytopenia Elevated amylase/lipase Dysphagia by swallow eval Continue PPI, IV hydration, repeat labs. No apparent pain/discomfort associated with abd. Plan for PEG tube placement due to poor oral feeding. NPO status Would recommend endoscopy inpatient vs outpatient Follow labs Clinical Quality Measures DVT/VTE Risk/Contraindication: Risk Factor Score Per Nursin RFS Level Per Nursing on Admit: 2=Moderate KARYN SMITH DO 11/12/20 1429: Subjective Subjective/Events-last exam Patient no new issues. nonverbal. NPO. For EGD/PEG tube today. Objective Exam General Appearance: No Apparent Distress HEENT: PERRL/EOMI Neck: Normal Inspection, Non Tender, Supple Respiratory: Chest Non Tender, No Accessory Muscle Use, No Respiratory Distress Cardiovascular: Bradycardia Gastrointestinal: normal bowel sounds, non tender, soft Extremity: Normal Capillary Refill Neurologic/Psychiatric: Alert, Other (Intellectual Disability) Skin: Normal Color, Warm/Dry Lymphatic: No Adenopathy Assessment/Plan Assessment/Plan Assessment/Plan Right lower lobe pneumonia Nausea/vomiting GERD Esophagitis/Gastritis by CT Hypoglycemia Hematuria Oliguria Intellectual disability Seizure disorder Anemia Leukopenia Thrombocytopenia Elevated amylase/lipase Dysphagia by swallow eval NPO, EGD To further evaluate. Peg for nutrition. Consent obtained. Supervisory-Addendum Brief Verification & Attestation Participated in pt care: history, MDM, physical Personally performed: exam, history, MDM, supervision of care Care discussed with: Medical Student Procedures: n/a Results interpretation: Verified all documentation Verification and Attestation of Medical Student E/M Service A medical student performed and documented this service in my presence. I reviewed and verified all information documented by the medical student and made modifications to such information, when appropriate. I personally performed the physical exam and medical decision making. Karyn Smith, Nov 12, 2020,14:00 DONNIE BUI MED STUDENT Nov 12, 2020 06:44 KARYN SMITH DO Nov 12, 2020 14:29
[2020-11-12] MEDS: PANTOPRAZOLE 40 MG (PROTONIX) VIAL IV SCH (08:05)
--- NOTE | 2020-11-12 09:48 | Progress Note - Hospitalist ---
PRATIK EVANGELISTA MED STUDENT 11/12/20 0948: Subjective HPI/CC On Admission Date Seen by Provider: Nov 12, 2020 Jd Neves is a 65-year-old male with intellectual disability residing in a long term who presented with lethargy, nausea, and vomiting. Due to his intellectual disability has a poor historian and is unable to provide any history. His reportedly been having issues with nausea and vomiting for quite some time. This seems to be associated with meals. He has also had decreased urine output. He has had previous admissions with esophagitis and gastritis. He has also had an admission due to a small bowel obstruction. Subjective/Events-last exam Per chart review, Jd is here for lethargy, nausea and vomiting. He has also been having trouble with post-prandial vomiting, as well as, swallowing. He has had a decreased oral intake and has been put on NPO status for coughing while drinking and eating. He has an intellectual disability and is non-verbal. Pt is a poor historian. Past medical history includes esophageal thickening, gastritis, GERD, small bowel obstruction and chronic constipation. Today, pt was alert, looked comfortable, but was unresponsive. Pt tolerated physical exam without expressing any tenderness to palpation. Pt has not had a bowel movement today. Review of Systems General: Other (Unable to obtain due to non-verbal status ) Objective Exam Vital Signs Vital Signs Date Time Temp Pulse Resp B/P (MAP) Pulse Ox O2 Delivery O2 Flow Rate FiO2 11/12/20 08:00 Room Air 11/12/20 08:00 34.9 50 12 103/67 (79) 94 Capillary Refill : Less Than 3 SecondsLess Than 3 Seconds General Appearance: No Apparent Distress, Thin HEENT: PERRL/EOMI; No Scleral Icterus (L), No Scleral Icterus (R) Neck: Non Tender; No Lymphadenopathy (L), No Lymphadenopathy (R) Respiratory: Chest Non Tender, Normal Breath Sounds, No Accessory Muscle Use, No Respiratory Distress, Crackles (RLL), Other Cardiovascular: Regular Rate, Rhythm, Bradycardia Gastrointestinal: Normal Bowel Sounds, Non Tender, Soft, Abnormal Bowel Sounds (Decreased bowel sounds) Extremity: Normal Capillary Refill, Non Tender, No Pedal Edema Neurologic/Psychiatric: Alert, Other (Intellectual Diasbility) Skin: Cool; No Diaphoresis, No Jaundice Lymphatic: No Adenopathy Results/Procedures Lab Laboratory Tests 12/15/20 09:50 Patient resulted labs reviewed. Imaging: Reviewed Imaging Report Assessment/Plan Assessment and Plan Assess & Plan/Chief Complaint Aspiration Pneumonia Chest x-ray- RLL consolidation Continue piperacillin/tazobactam @30 mls/hr currently on bag 13 of 14 Evaluation by Speech therapy being done today (11/12/20) for swallowing Blood cultures show no preliminary growth Hypoglycemia Currently on D5w/NaCl @100 mls/hr Switch to D5w Peg tube placement today, start regular tube feeds Dysphagia Bedside evaluation by Speech therapy being done tooday (11/12/20). Gastroesophageal Reflux disease Continue Protonix injection, 40 mg, IV, qd Pancytopenia Most likely due to nutritional status Continue D5w Thrombocytopenia could be due to Protonix, monitor platelet levels closely History of Esophageal thickening Surgery is already on board, appreciate consultation EGD being done today (11/12/20) History of Gastritis Surgery is already on board, appreciate consultation EGD being done today (11/12/20) Intellectual Disability No acute management needed Left Arm Contracture No acute management needed. DVT Prophylaxis Continue use of sequential compression devices Clinical Quality Measures DVT/VTE Risk/Contraindication: Risk Factor Score Per Nursin RFS Level Per Nursing on Admit: 2=Moderate YANDY GAGE MD 11/12/20 1512: Subjective HPI/CC On Admission Time Seen by Provider: 10:30 Assessment/Plan Assessment and Plan Assess & Plan/Chief Complaint Plan for EGD and PEG today. More alert today and watching TV but did not respond to me. Will complete antibiotic course today. If procedure goes well will plan to DC back to [place] tomorrow or next day. Supervisory-Addendum Brief Verification & Attestation Participated in pt care: history, MDM, physical Personally performed: exam, history, MDM, supervision of care Care discussed with: Medical Student Procedures: n/a Results interpretation: Verified all documentation Verification and Attestation of Medical Student E/M Service A medical student performed and documented this service in my presence. I reviewed and verified all information documented by the medical student and made modifications to such information, when appropriate. I personally performed the physical exam and medical decision making. Yandy Gage, Nov 12, 2020,15:08 PRATIK EVANGELISTA MED STUDENT Nov 12, 2020 09:48 YANDY GAGE MD Nov 12, 2020:12
[2020-11-12 10:12] LABS: CHLORIDE 121 MMOL/L (98-107); POTASSIUM 3.7 MMOL/L (3.6-5.0); SODIUM 144 MMOL/L (135-145)
[2020-11-12 10:13] LABS: CALCIUM 7.7 MG/DL (8.5-10.1)
[2020-11-12 10:14] LABS: GLUCOSE 108 MG/DL (70-105)
[2020-11-12 10:15] LABS: CARBON DIOXIDE 20 MMOL/L (21-32)
[2020-11-12 10:18] LABS: BUN/CREATININE RATIO 26; CREATININE SERUM 0.81 MG/DL (0.60-1.30); GFR ESTIMATED > 60
[2020-11-12] MEDS: D5 NS 1000 ML IV SOLUTION 1,000 ML IV SCH (10:19)
--- NOTE | 2020-11-12 11:41 | Physical Therapy Evaluation ---
PT Evaluation-General Medical Diagnosis Admission Date Nov 07, 2020 at 19:56 Medical Diagnosis: Aspiration Pneumonia Onset Date: Nov 08, 2020 Therapy Diagnosis Therapy Diagnosis: debility Height/Weight Height (Feet): 5 Height (Inches): 6.00 Weight (Pounds): 139 Weight (Ounces): 0.0 Precautions Precautions/Isolations: Fall Prevention, Standard Precautions Referral Physician: Too Reason for Referral: Evaluation/Treatment Medical History Pertinent Medical History: GERD Additional Medical History MR/seizure disorder/nonverbal Current History Admit secondary to aspiration pneumonia Reviewed History: Yes Social History Current Living Status: assisted Prior Prior Level of Function SCALE: Activities may be completed with or without assistive devices. 2-Swmpfoxlwf-bwtkagc completes the activity by him/herself with no assistance from a helper. 5-Set-up or Clean-up Assistance-helper sets up or cleans up; patient completes activity. [place] assists only prior to or following the activity. 4-Supervision or Touching Assistance-helper provides verbal cues and/or touching/steadying and/or contact guard assistance as patient completes activity. Assistance may be provided throughout the activity or intermittently. 3-Partial/Moderate Assistance-helper does LESS THAN HALF the effort. [place] lifts, holds or supports trunk or limbs, but provides less than half the effort. 2-Substantial/Maximal Assistance-helper does MORE THAN HALF the effort. [place] lifts or holds trunk or limbs and provides more than half the effort. 6-Xpunulnnc-zpzzbv does ALL the effort. Patient does none of the effort to complete the activity. Or, the assistance of 2 or more helpers is required for the patient to complete the activity. If activity was not attempted, code reason: 7-Patient Refused. 9-Not Applicable-not attempted and the patient did not perform the activity before the current illness, exacerbation or injury. 10-Not Attempted due to Environmental Limitations-(lack of equipment, weather restraints, etc.). 88-Not Attempted due to Medical Conditions or Safety Concerns. Bed Mobility: 1 Transfers (B,C,W/C): 1 Gait: 9 Stairs: 9 Wheelchair Mobility: 1 Indoor Mobility (Ambulation): Not Applicalbe Stairs: Not Applicalbe PT Evaluation-Current Subjective Patient is non verbal Objective Patient Orientation: MR, Non-Verbal/Aphasic Attachments: Nunez Catheter, IV ROM/Strength ROM Lower Extremities bilateral knee flexion and ankle plantarflexion contractures Strength Lower Extremities NT Integumentary/Posture Bowel Incontinence: Yes Bladder Incontinence: Nunez Cath Sensory Vision: Unable to Assess Hearing: Unable to Assess Assessment/Needs Patient is dependent PLOF with all mobility. No skilled therapy indicated. Physician notified and voices understanding. Rehab Potential: Guarded PT Plan Treatment/Plan Treatment Plan: Discontinue PT Treatment Duration: Nov 12, 2020 Frequency: 1 time per week Estimated Hrs Per Day: .25 hour per day Time/GCodes Time In: 1045 Time Out: 1053 Total Billed Treatment Time: 8 Total Billed Treatment 1 visit EVLowC 8 min MACIE YOUNG PT Nov 12, 2020 11:41
--- NOTE | 2020-11-12 13:04 | Physician Query Clarification ---
"Physician Query-General Query to Physician: The medical record reflects the following clinical scenario: History/Risk factors: Intellectual disability, Aspiration, ongoing Nausea and Vomiting, Pancreatitis Clinical Findings: BMI 17.7, Pancytopenia, Albumin 2.3, Poor oral intake, 13 Kg Wt loss since 05/2020, hypoglycemia Treatment: Nutritional monitoring, D5W, Plans for TPN and or Peg Tube Question: What condition best reflects the above clinical scenario? Please document response in the Progress notes or Discharge Summary. 1. Severe Protein/Calorie Malnutrition 2. Hypoglycemia/Pancytopenia most likely due to nutritional status (as currently documented) 3. Other , with explanation of the clinical findings 4. Clinically undetermined, no explanation for the clinical findings Please remember a lack of response to the above will prompt a phone page by CDI/coding staff In responding to this query, please exercise your independent professional judgment. The purpose of this communication is to more accurately reflect the complexity of your patients condition. The fact that a question is asked does not imply that any particular answer is desired or expected. Thank you for timely response to this clarification. Ny Mike, MSN, RN RN Specialist-Clinical Doc Improvement CD -Health Info Mgmt Operations [address] [facility] t: [phone] | f: [phone] If you are unable to reach me at my extension, I may be working from home. Please contact me at [phone] PHYSICIAN RESPONSE: Based on the clinical findings in the record, please respond to the query above on this document as an addendum. Physician Response: Physician Response 1 If you have questions please contact: School Bus Driver/Teacher Assistant: Ext: Thank you for your time and cooperation. Clinical Vault Person/School Bus Driver/Teacher Assistant This is a permanent part of the medical re cord [place] MIKE Nov 12, 2020 13:04 BETH ELENA MD Nov 12, 2020 18:25"
--- NOTE | 2020-11-12 13:30 | NUR ---
PATIENT TAKEN FOR PROCEDURE AT THIS TIME.
[2020-11-12] MEDS ORDERED: LACTATED RINGERS 1,000 ML IV ONE ×2 (13:34→14:15)
[2020-11-12] MEDS ORDERED: MIDAZOLAM 2 MG/2 ML (VERSED) VIAL ONE (13:51)
[2020-11-12] MEDS ORDERED: proPOfol 200 MG/20 ML (DIPRIVAN) VIAL IV ONE (13:51)
--- NOTE | 2020-11-12 14:33 | Anesthesia-General Post-Op ---
MAC Patient Condition Mental Status/LOC: Same as Preop Cardiovascular: Satisfactory Nausea/Vomiting: Absent Respiratory: Satisfactory Pain: Controlled Complications: Absent Post Op Complications Complications None Follow Up Care/Instructions Patient Instructions None needed. Anesthesiology Discharge Order Discharge Order Patient is doing well, no complaints, stable vital signs, no apparent adverse anesthesia problems. No complications reported per nursing. CHRISTIN SPEAR CRNA Nov 12, 2020 14:33
--- NOTE | 2020-11-12 14:33 | Progress Note-Post Operative ---
Post-Operative Progess Note Surgeon (s)/Official Greeter (s) Surgeon KARYN SMITH DO Official Greeter: na Pre-Operative Diagnosis esophagitis, dysphagia Post-Operative Diagnosis healing antral ulcer, esophageal ulceration, hiatal hernia Procedure & Operative Findings Date of Procedure 11/12/20 Procedure Performed/Findings EGD c biopsies- Dr. Smith Gastrostomy tube- Dr. Govea Anesthesia Type per sweatband decorating machine operator Estimated Blood Loss Estimated blood loss (mL): scant Specimens/Packing Specimens Removed antrum, distal esophagus KARYN SMITH DO Nov 12, 2020 14:33
--- NOTE | 2020-11-12 19:17 | OPERATIVE REPORT ---
DATE OF SERVICE: 11/12/2020 PREOPERATIVE DIAGNOSIS: Esophagitis, dysphagia. POSTOPERATIVE DIAGNOSES: Healing antral ulcers, esophageal ulceration, hiatal hernia. PROCEDURE: EGD with biopsies by myself. The gastrostomy tube placement by Dr. Govea. ANESTHESIA: Per AIRCRAFT ARMAMENT MECHANIC. ESTIMATED BLOOD LOSS: Scant. COMPLICATIONS: None. INDICATIONS: The patient is a 65-year-old male esophagitis changes by CT scan and the patient having dysphagia symptoms, not passing swallow study. The patient's family wishes to have gastrostomy tube placement to assist in providing nutrition. Consent was signed in the chart. DESCRIPTION OF PROCEDURE: The patient was taken to the endoscopy suite, placed in left lateral recumbent position. Timeout was performed. Scope was inserted in mouth, down the esophagus, stomach and into the duodenum without difficulty. There were no polyps, masses or ulcerations within the duodenum. Scope was slowly retracted back to stomach where it was further insufflated. The antrum appeared to be healing ulceration was present. A biopsy of this area was obtained. No other pathology noted. Scope was retroflexed noting a moderate hiatal hernia. Scope was returned to its normal position. Dr. Govea inserted the Angiocath needle, which was used to snare the catheter. The wire was inserted, which was then snared and the wire was then brought out through the mouth. The gastrostomy tube was attached to it. Dr. Govea pulled it through which the scope was then inserted, following the gastrostomy tube was assuring it was in the proper placement. Please see his dictation for his part of the procedure. Scope was then slowly retracted back into the distal esophagus, had appearance of a hard and firm ulcerations in the distal esophagus. Biopsy of this area was obtained. Scope was then slowly retracted back until completely removed, noting no other pathology. The patient tolerated procedure well without any complications, taken to recovery room in stable condition. RECOMMENDATIONS: The patient to continue PPI. We will follow up on biopsy results. Job ID: [id number] DocumentID: [id number] Dictated Date: 11/12/2020 14:37:06 Mobile Home Technician Date: 11/12/2020 19:16:30 Dictated By: KARYN MENDOZA DO
[2020-11-13] MEDS: D5 NS 1000 ML IV SOLUTION 1,000 ML IV SCH ×2 (00:31→12:40)
[2020-11-13 00:39] VITALS: BP 109/70
[2020-11-13] MEDS: NS IV 1000 ML 1,000 ML IV SCH ×2 (00:41→06:00)
--- NOTE | 2020-11-13 01:35 | OPERATIVE REPORT ---
DATE OF SERVICE: PREOPERATIVE DIAGNOSIS: Trouble swallowing, inability to eat. POSTOPERATIVE DIAGNOSIS: Trouble swallowing, inability to eat. PROCEDURE: Gastrostomy tube placement. SURGEON: Sukhi Govea DO DELIVERY STOCK CLERK: Jorgito Smith DO ANESTHESIA: IV sedation by the SECURITY INSTALLER. SPECIMENS: None. BLOOD LOSS: Scant. FLUIDS: Per anesthesia. POSTOPERATIVE CONDITION: Stable. INDICATION FOR PROCEDURE: The patient is a 65-year-old male, who has been unable to eat and trouble swallowing and needs a PEG tube placement. Dr. Smith did the EGD portion and I did the gastrostomy tube portion. PROCEDURE NOTE: After informed consent was obtained, the patient was brought to the endoscopy suite, placed in bed in the left lateral decubitus position. Dr. Smith did an EGD, able to insufflate the stomach, could see a light on the abdomen. The patient actually had a previous gastrostomy tube and the light was right near this, elected to sterilely prep and drape this area in normal fashion and then local lidocaine was used to infiltrate the skin. I then used the same needle and able to get into the stomach. I made a small stab incision with #11 blade and then advanced a larger needle through the skin into the stomach, watched it go in and Dr. Smith will grab this and then I fed the wire through and he will pull this out attach to the PEG tube and then I pulled the PEG tube down through the mouth through the esophagus into the stomach, locked in place to the locking mechanism over the PEG tube and then put povidine ointment as well as a small drain sponge under locking mechanism. This held this in place tight, but not too tight, could still twist a little bit and at this area was then cleaned and dried, dressing placed. The patient tolerated the procedure. Dr. Smith finished his portion of the procedure. Job ID: [id number] DocumentID: [id number] Dictated Date: 11/12/2020 16:07:55 Welding Machine Operator Gas Date: 11/12/2020 21:26:03 Dictated By: SUKHI GOVEA DO [id number]
[2020-11-13 04:39] VITALS: BP 106/71
[2020-11-13 05:59] LABS: CHLORIDE 122 MMOL/L (98-107); POTASSIUM 3.7 MMOL/L (3.6-5.0); SODIUM 146 MMOL/L (135-145)
[2020-11-13 06:01] LABS: CALCIUM 7.7 MG/DL (8.5-10.1); GLUCOSE 113 MG/DL (70-105)
[2020-11-13 06:03] LABS: CARBON DIOXIDE 21 MMOL/L (21-32)
[2020-11-13 06:05] LABS: CREATININE SERUM 0.76 MG/DL (0.60-1.30); GFR ESTIMATED > 60
[2020-11-13 06:06] LABS: BUN/CREATININE RATIO 21
--- NOTE | 2020-11-13 07:24 | Progress Note - Surgery ---
DONNIE BUI MED STUDENT 11/13/20 0723: Subjective Date Seen by a Provider: Nov 13, 2020 Time Seen by a Provider: 06:35 Subjective/Events-last exam Pt seen and examined. Resting in bed comfortably, NAD. Pt is nonverbal, but was alert. Review of Systems Unable to obtain, pt is noncommunicative Objective Exam Vital Signs Date Time Temp Pulse Resp B/P (MAP) Pulse Ox O2 Delivery O2 Flow Rate FiO2 11/13/20 04:39 35.2 49 18 106/71 (83) 97 Nasal Cannula 3.00 11/13/20 00:39 36.2 50 18 109/70 (83) 96 Nasal Cannula 3.00 11/12/20 20:00 Room Air 11/12/20 20:00 35.0 46 16 106/63 (77) 97 Nasal Cannula 3.00 11/12/20 16:00 35.0 45 18 110/72 (85) 97 Nasal Cannula 3.00 11/12/20 14:35 48 16 92 Room Air 11/12/20 14:30 48 16 95 OxyMask 6 11/12/20 14:25 48 16 95 OxyMask 8 11/12/20 12:00 34.8 49 16 100/55 (70) 93 Room Air 11/12/20 08:00 Room Air 11/12/20 08:00 34.9 50 12 103/67 (79) 94 Room Air I & O 11/13/20 07:00 Intake Total 600 ml Output Total 725 ml Balance -125 ml Capillary Refill : Less Than 3 SecondsLess Than 3 Seconds General Appearance: No Apparent Distress, Thin HEENT: PERRL/EOMI Neck: Normal Inspection, Non Tender, Supple Respiratory: Chest Non Tender, No Accessory Muscle Use, No Respiratory Distress Cardiovascular: Bradycardia Gastrointestinal: normal bowel sounds, non tender, soft Extremity: Normal Capillary Refill Neurologic/Psychiatric: Alert, Other (Intellectual Disability) Skin: Normal Color, Warm/Dry Lymphatic: No Adenopathy Results Lab Laboratory Tests 11/12/20 09:50: Sodium Level 144, Potassium Level 3.7, Chloride Level 121H, Carbon Dioxide Level 20L, Anion Gap 3L, Blood Urea Nitrogen 21H, Creatinine 0.81, Estimat Glomerular Filtration Rate > 60, BUN/Creatinine Ratio 26, Glucose Level 108H, Calcium Level 7.7L 11/13/20 04:44: Sodium Level 146H, Potassium Level 3.7, Chloride Level 122H, Carbon Dioxide Level 21, Anion Gap 3L, Blood Urea Nitrogen 16, Creatinine 0.76, Estimat Glomerular Filtration Rate > 60, BUN/Creatinine Ratio 21, Glucose Level 113H, Calcium Level 7.7L Microbiology 11/11/20 MRSA Screen - Final, Complete MRSA not isolated 11/07/20 Blood Culture - Preliminary, Resulted No growth Assessment/Plan Assessment/Plan Assessment/Plan Right lower lobe pneumonia Nausea/vomiting GERD Esophagitis/Gastritis by CT Hypoglycemia Hematuria Oliguria Intellectual disability Seizure disorder Anemia Leukopenia Thrombocytopenia Elevated amylase/lipase Dysphagia by swallow eval PEG tube placed yesterday, not yet being utilized Enteral feeds can begin per residential mortgage manager protocol Clinical Quality Measures DVT/VTE Risk/Contraindication: Risk Factor Score Per Nursin RFS Level Per Nursing on Admit: 2=Moderate KARYN SMITH DO 11/13/20 1315: Subjective Subjective/Events-last exam Nonverbal. No acute distress. Objective Exam General Appearance: No Apparent Distress HEENT: PERRL/EOMI Neck: Normal Inspection, Non Tender, Supple Respiratory: Chest Non Tender, No Accessory Muscle Use, No Respiratory Distress Cardiovascular: Regular Rate, Rhythm, No JVD, Bradycardia Gastrointestinal: normal bowel sounds, non tender, soft, other (gastrostomy tube luq) Extremity: Normal Capillary Refill Neurologic/Psychiatric: Alert, Other (Intellectual Disability) Skin: Normal Color, Warm/Dry Lymphatic: No Adenopathy Assessment/Plan Assessment/Plan Assessment/Plan Right lower lobe pneumonia Nausea/vomiting GERD Esophagitis/Gastritis by CT ulcer healing antrum, hiatal hernia esophageal ulceration Hypoglycemia Hematuria Oliguria Intellectual disability Seizure disorder Anemia Leukopenia Thrombocytopenia Elevated amylase/lipase Dysphagia by swallow eval PEG tube placed yesterday, not yet being utilized can use peg tube as needed await biopsy results continue protonix Supervisory-Addendum Brief Verification & Attestation Participated in pt care: history, MDM, physical Personally performed: exam, history, MDM, supervision of care Care discussed with: Medical Student Procedures: n/a Results interpretation: Verified all documentation Verification and Attestation of Medical Student E/M Service A medical student performed and documented this service in my presence. I reviewed and verified all information documented by the medical student and made modifications to such information, when appropriate. I personally performed the physical exam and medical decision making. Karyn Smith, Nov 13, 2020,13:15 DONNIE BUI MED STUDENT Nov 13, 2020 07:23 KARYN SMITH DO Nov 13, 2020 13:15
[2020-11-13 08:00] VITALS: BP 113/78
--- NOTE | 2020-11-13 09:45 | Progress Note - Hospitalist ---
PRATIK EVANGELISTA MED STUDENT 11/13/20 0945: Subjective HPI/CC On Admission Date Seen by Provider: Nov 13, 2020 Time Seen by Provider: 09:00 Jd Neves is a 65-year-old male with intellectual disability residing in a senior living who presented with lethargy, nausea, and vomiting. Due to his intellectual disability has a poor historian and is unable to provide any history. His reportedly been having issues with nausea and vomiting for quite some time. This seems to be associated with meals. He has also had decreased urine output. He has had previous admissions with esophagitis and gastritis. He has also had an admission due to a small bowel obstruction. Subjective/Events-last exam Jd is alert and watching tv, but is unresponsive. There is no tenderness to palpation on the physical exam. Peg tube was placed yesterday (11/12/20). There is no swelling or erythema at the peg tube insertion site. Review of Systems Unable to obtain ROS due to non-verbal status Objective Exam Vital Signs Vital Signs Date Time Temp Pulse Resp B/P (MAP) Pulse Ox O2 Delivery O2 Flow Rate FiO2 11/13/20 04:39 35.2 49 18 106/71 (83) 97 Nasal Cannula 3.00 Capillary Refill : Less Than 3 SecondsLess Than 3 Seconds General Appearance: No Apparent Distress, Thin HEENT: No Scleral Icterus (L), No Scleral Icterus (R) Neck: No Lymphadenopathy (L), No Lymphadenopathy (R) Respiratory: Chest Non Tender, Lungs Clear, Other (bradypnea ) Cardiovascular: No Edema, No Murmur, Bradycardia Gastrointestinal: Non Tender, Soft, Abnormal Bowel Sounds (hypoactive bowel sounds ) Extremity: Normal Capillary Refill, No Pedal Edema Neurologic/Psychiatric: Alert; No Oriented x3 Skin: Normal Color, Cool; No Diaphoresis Lymphatic: No Adenopathy Results/Procedures Lab Laboratory Tests 11/12/20 09:50 11/13/20 04:44 Patient resulted labs reviewed. Imaging: Reviewed Imaging Report Assessment/Plan Assessment and Plan Assess & Plan/Chief Complaint Aspiration Pneumonia Chest x-ray- RLL consolidation Discontinue piperacillin/tazobactam bag 14 of 14 adminstered on 11/13/20 Blood cultures show no preliminary growth Hypoglycemia Currently on D5w/NaCl @100 mls/hr Switch to D5w @100 mls/hr today S/P Peg tube placement (11/12/20), start regular tube feeds at 24 hours post-op Dysphagia Bedside evaluation by Speech therapy being done tooday (11/13/20) Gastroesophageal Reflux disease Continue Protonix injection, 40 mg, IV, qd Surgery is consulted, appreciate recommendations Pancytopenia Most likely due to nutritional status Continue D5w Start tube feeds today Thrombocytopenia could be due to Protonix, monitor platelet levels closely Platelet level 47. Low, but stable History of Esophageal thickening Surgery is already on board, appreciate consultation S/P EGD (11/12/20) History of Gastritis Surgery is already on board, appreciate consultation S/P EGD (11/12/20) Intellectual Disability No acute management needed Left Arm Contracture No acute management needed. DVT Prophylaxis Continue use of sequential compression devices Clinical Quality Measures DVT/VTE Risk/Contraindication: Risk Factor Score Per Nursin RFS Level Per Nursing on Admit: 2=Moderate YANDY GAGE MD 11/13/20 1625: Assessment/Plan Assessment and Plan Assess & Plan/Chief Complaint Pt tolerated PEG placement well. Will start tube feeding this afternoon. Hope fully will be able to return to the [place] soon. Supervisory-Addendum Brief Verification & Attestation Participated in pt care: history, MDM, physical Personally performed: exam, history, MDM, supervision of care Care discussed with: Medical Student Procedures: n/a Results interpretation: Verified all documentation Verification and Attestation of Medical Student E/M Service A medical student performed and documented this service in my presence. I reviewed and verified all information documented by the medical student and made modifications to such information, when appropriate. I personally performed the physical exam and medical decision making. Yandy Gage, Nov 13, 2020,16:16 PRATIK EVANGELISTA MED STUDENT Nov 13, 2020 09:45 YANDY GAGE MD Nov 13, 2020 16:25
[2020-11-13 12:00] VITALS: BP 113/70
[2020-11-13] MEDS ORDERED: D5 NS 1000 ML IV SOLUTION 1,000 ML IV ONE (12:35)
[2020-11-13] MEDS: PANTOPRAZOLE 40 MG (PROTONIX) VIAL IV SCH (12:49)
--- NOTE | 2020-11-13 14:28 | ST Dysphagia Evaluation ---
Speech Evaluation-General Medical Diagnosis Aspiration Pneumonia Onset Date: Nov 08, 2020 Therapy Diagnosis Therapy Diagnosis: Oropharyngeal Dysphagia Precautions Precautions: Aspiration Precautions/Isolations: Aspiration Referral Referring Physician: Dr. Gage Medical History Pertinent Medical History: GERD Reviewed History: Yes Social History Home: Current Living Status: long term Speech PLF/Current-Dysphagia Prior Level of Function Patient lives in a long term where he is assisted with all his daily needs. Subjective Patient was cooperative with the Bedside Dysphagia Evaluation Cognitive Status Patient Orientation: Unable to Assess, MR, Non-Verbal/Aphasic Oral Motor Skills Dentition: Edentalous Ability to Follow Directions: Poor NPO pending BDE Oral Expression Ability: Unable Face Facial Symmetry: Symmetrical Oral-Facial Assessment Labial Seal Description: Weak Lingual Protrusion: Normal Lingual ROM: Normal Lingual Strength: Normal Dysphagia Evaluation Consistencies Presented: Thin Liquid, Pudding Thick Liquid Oral Phase: Oral Residue, Unable to Suck Straw Dietary Recommendations: Pureed Liquid Recommendations: Thin Swallowing Precautions: Alternate Liquids/Solids, Decreased Bolus 1/2 Tsp, Decreased Rate of Oral Intake, Liquids from Straw, Liquids from Spoon, Oral Supervision Staff, Oral Supervision Caregiver, Small Bites and Sips, Sitting Upright 90 Degrees, Sitting 90 Degrees 30 Post Intake Dysphagia Evaluation Summary Patient is a 65 y/o male who was admitted to the hospital with pneumonia. Patient was referred for a BDE although he had a PEG placed on 11/12/2020. Patient was presented with 1/2 tsp of water x2 with oral transit and swallow normal. He was presented 1/2 tsp of puree which he swallowed with 2 swallows to clear. No coughing observed. Patient was not presented mechanical soft or regular textures due to beingt edentulous and decreased bolus management. Patient is recommended for a Dysphagia I diet level with thin liquids. This information was provided for his nurse as well as written on the white board in his room. Barriers to Learning Patient is profoundly intellectually challenged, patient is nonverbal Speech Short Term Goals Short Term Goals Short Term Goals 1) Patient will tolerate least restrictive diet level without s/s of aspiration at 80% or greater. 2) Caregivers will utilize compensatory strategies as trained at 90% or greater with minimal cues. Speech-Plan Patient/Family Goals Patient/Family Goals: Patient will return to his long term upon discharge. Treatment Plan Speech Therapy Treatment Plan: Discontinue ST Treatment Duration: Nov 13, 2020 Frequency: 1 time per week Estimated Hrs Per Day: .25 hour per day Rehab Potential: Guarded Barriers to Learning: Patient is profoundly intellectually challeged, patient is nonverbal Pt/Family Agrees to Plan: Yes Safety Risks/Education Teaching Recipient: Patient Teaching Methods: Discussion Response to Teaching: Reinforcement Needed Time Speech Therapy Time In: 10:00 Speech Therapy Time Out: 10:30 Total Billed Time: 30 Billed Treatment Time 1, [facility] [address] Nov 13, 2020 14:28
--- NOTE | 2020-11-13 15:51 | NUR ---
CALL PLACED TO DIETARY FOR JEVITY
--- NOTE | 2020-11-13 15:56 | NUR ---
CM/SS: Telephone call to [place] - Senior Quality Engineer - [phone] - Opal Saucedo. She is unavailable at this time. A voice mail message is left for her to return this workers call.
[2020-11-13 16:00] VITALS: BP 110/75
--- NOTE | 2020-11-13 16:18 | NUR ---
CLARIFIED IVF ORDERS W DR. ELENA, ORDERS FOR D5W AT 100.
[2020-11-13 20:00] VITALS: BP 82/54
[2020-11-13] MEDS: D5W 1000 ML IV SOLUTION 1,000 ML IV SCH (23:02)
[2020-11-14 00:48] VITALS: BP 117/63
[2020-11-14 04:09] VITALS: BP 103/61
[2020-11-14] MEDS: D5W 1000 ML IV SOLUTION 1,000 ML IV SCH ×3 (05:21→19:52)
--- NOTE | 2020-11-14 07:34 | Progress Note - Surgery ---
HAODONNIE MED STUDENT 11/14/20 0734: Subjective Date Seen by a Provider: Nov 14, 2020 Time Seen by a Provider: 06:45 Subjective/Events-last exam Pt seen and examined. Pt was laying in bed resting, NAD. Pt is alert but noncommunicative. He does not appear to be in any pain/discomfort. No reports of intolerance to enteral feeds through PEG tube per nursing. Review of Systems Unable to obtain, pt is noncommunicative Objective Exam Vital Signs Date Time Temp Pulse Resp B/P (MAP) Pulse Ox O2 Delivery O2 Flow Rate FiO2 11/14/20 04:09 35.1 54 18 103/61 (75) 96 Nasal Cannula 3.00 11/14/20 00:48 35.9 58 18 117/63 (81) 97 Nasal Cannula 3.00 11/13/20 20:00 35.3 52 16 82/54 (63) 96 Nasal Cannula 3.00 11/13/20 20:00 97 Nasal Cannula 3.00 11/13/20 16:00 35.1 50 16 110/75 (87) 93 Nasal Cannula 3.00 11/13/20 12:00 35.2 51 16 113/70 (84) 96 Nasal Cannula 3.00 11/13/20 08:55 Room Air 11/13/20 08:00 35.2 51 16 113/78 (90) 95 Nasal Cannula 3.00 I & O 11/14/20 06:59 Intake Total 30 ml Output Total 925 ml Balance -895 ml Capillary Refill : Less Than 3 SecondsLess Than 3 Seconds General Appearance: No Apparent Distress, Thin HEENT: PERRL/EOMI Neck: Full Range of Motion, Normal Inspection, Non Tender, Supple Respiratory: Chest Non Tender, No Accessory Muscle Use, No Respiratory Distress Cardiovascular: Regular Rate, Rhythm, No JVD, Bradycardia Gastrointestinal: normal bowel sounds, non tender, soft, other (gastrostomy tube luq) Extremity: Normal Capillary Refill, Swelling (mild-mod edema to B hands/feet) Neurologic/Psychiatric: Alert, Other (Intellectual Disability) Skin: Normal Color, Warm/Dry Lymphatic: No Adenopathy Results Lab Microbiology 11/11/20 MRSA Screen - Final, Complete MRSA not isolated 11/07/20 Blood Culture - Final, Complete No growth Assessment/Plan Assessment/Plan Assessment/Plan Right lower lobe pneumonia Nausea/vomiting GERD Esophagitis/Gastritis by CT ulcer healing antrum, hiatal hernia esophageal ulceration Hypoglycemia Hematuria Oliguria Intellectual disability Seizure disorder Anemia Leukopenia Thrombocytopenia Elevated amylase/lipase Dysphagia by swallow eval PEG tube placed 2 days ago, enteral feeds started yesterday, pt appears to be tolerating well await biopsy results continue protonix Clinical Quality Measures DVT/VTE Risk/Contraindication: Risk Factor Score Per Nursin RFS Level Per Nursing on Admit: 2=Moderate KARYN SMITH DO 11/14/202103: Subjective Subjective/Events-last exam Patient lying in bed. Patient is alert but noncommunicating. Patient has been starting on tube feeds no issues at this time. Objective Exam General Appearance: No Apparent Distress HEENT: PERRL/EOMI Neck: Full Range of Motion, Normal Inspection, Non Tender Respiratory: Chest Non Tender, No Accessory Muscle Use, No Respiratory Distress Cardiovascular: No JVD, Bradycardia Gastrointestinal: normal bowel sounds, non tender, soft, other (gastrostomy tube luq) Extremity: Normal Capillary Refill, Swelling (mild-mod edema to B hands/feet) Neurologic/Psychiatric: Alert, Other (Intellectual Disability) Skin: Normal Color, Warm/Dry Lymphatic: No Adenopathy Assessment/Plan Assessment/Plan Assessment/Plan Right lower lobe pneumonia Nausea/vomiting GERD Esophagitis/Gastritis by CT ulcer healing antrum, hiatal hernia esophageal ulceration Hypoglycemia Hematuria Oliguria Intellectual disability Seizure disorder Anemia Leukopenia Thrombocytopenia Elevated amylase/lipase Dysphagia by swallow eval PEG tube placed 2 days ago, enteral feeds started yesterday, pt appears to be tolerating well await biopsy results continue protonix will sign off call if needed will have f/u outpatient. Supervisory-Addendum Brief Verification & Attestation Participated in pt care: history, MDM, physical Personally performed: exam, history, MDM, supervision of care Care discussed with: Medical Student Procedures: n/a Results interpretation: Verified all documentation Verification and Attestation of Medical Student E/M Service A medical student performed and documented this service in my presence. I reviewed and verified all information documented by the medical student and made modifications to such information, when appropriate. I personally performed the physical exam and medical decision making. Karyn Smith, Nov 14, 2020,21:03 DONNIE BUI MED STUDENT Nov 14, 2020 07:34 KARYN SMITH DO Nov 14, 2020 21:04
[2020-11-14] MEDS: PANTOPRAZOLE 40 MG (PROTONIX) VIAL IV SCH (08:22)
[2020-11-14 08:43] VITALS: BP 92/58
--- NOTE | 2020-11-14 10:34 | Progress Note - Hospitalist ---
Subjective HPI/CC On Admission Date Seen by Provider: Nov 14, 2020 Time Seen by Provider: 10:25 Jd Neves is a 65-year-old male with intellectual disability residing in a snf who presented with lethargy, nausea, and vomiting. Due to his intellectual disability has a poor historian and is unable to provide any history. His reportedly been having issues with nausea and vomiting for quite some time. This seems to be associated with meals. He has also had decreased urine output. He has had previous admissions with esophagitis and gastritis. He has also had an admission due to a small bowel obstruction. Subjective/Events-last exam Pt laying in bed. More alert today. Oxygen off and cannula laying in his lap. I checked his sat and it was 93%. Discussed with RN. Objective Exam Vital Signs Vital Signs Date Time Temp Pulse Resp B/P (MAP) Pulse Ox O2 Delivery O2 Flow Rate FiO2 11/14/20 08:43 35.2 88 16 92/58 (69) 94 Nasal Cannula 3.00 Capillary Refill : Less Than 3 SecondsLess Than 3 Seconds General Appearance: No Apparent Distress, Chronically ill, Thin Respiratory: Lungs Clear, No Respiratory Distress Cardiovascular: Regular Rate, Rhythm, No Murmur Neurologic/Psychiatric: Other (more alert today, makes eye contact but does not otherwise interact or respond to me but is watching TV at times and looking around the room) Results/Procedures Lab Patient resulted labs reviewed. Imaging: Reviewed Imaging Report Assessment/Plan Assessment and Plan Assess & Plan/Chief Complaint Aspiration pneumonia Esophagitis Gastritis GERD Hiatal hernia Chest xray and CT revealed right lower lobe pneumonia, likely aspiration Swallow evaluation revealed dysphagia, recommend pureed diet with nectar thick liquids Completed antibiotics Surgery consulted, appreciate recs s/p PEG tube- continue tube feeds, will be at goal rate tomorrow PPI Pancytopenia stable, labs from today pending Hematuria Likely due to traumatic luciano Continue to monitor Intellectual disability Clinically significant, no acute management needs DVT Prophylaxis: held due to hematuria and pancytopenia Clinical Quality Measures DVT/VTE Risk/Contraindication: Risk Factor Score Per Nursin RFS Level Per Nursing on Admit: 2=Moderate BETH ELENA MD Nov 14, 2020 10:34
[2020-11-14 10:43] LABS: BUN/CREATININE RATIO 16; CALCIUM 7.9 MG/DL (8.5-10.1); CARBON DIOXIDE 23 MMOL/L (21-32); CHLORIDE 118 MMOL/L (98-107); GFR ESTIMATED > 60; GLUCOSE 82 MG/DL (70-105); POTASSIUM 3.5 MMOL/L (3.6-5.0); SODIUM 145 MMOL/L (135-145)
--- NOTE | 2020-11-14 10:55 | NUR ---
Note pt currently receiving Jevity 1.5 at 25ml/hr with 125ml water flushes q4h for hydration. Pt appears to be tolerating well. Recommend continue to increase TF by 10ml q12h as tolerated, toward goal rate of 45ml/hr. Will continue to follow and reassess as pt needs, intake, and status change. Tia Brooks, MS RD LD [phone] cell
[2020-11-14 11:15] LABS: HEMOGLOBIN 7.5 g/dL (13.3-17.7)
[2020-11-14 11:17] LABS: MEAN PLATELET VOLUME 11.5 fL (9.0-12.2); WHITE BLOOD COUNT 2.1 10^3/uL (4.3-11.0)
[2020-11-14 11:25] VITALS: BP 128/62
--- NOTE | 2020-11-14 14:06 | NUR ---
CM/SS: Telephone call to [facility]. Talk with CHARLES Venegas. She is updated on the status of the pt and that he will be discharged on tomorrow. She is given the information on the tube feedings to ensure that they can get it ordered so they will have it for pt. She report they can brass pickler pt on tomorrow, however they prefer to brass pickler the pt prior to 12noon. Dr Gage is notified of the request to be discharged prior to 12noon. Information is faxed [phone] to [facility] on the feedings and information related to pt's hospital stay.
[2020-11-14 16:00] VITALS: BP 100/58
[2020-11-14 20:00] VITALS: BP 96/54
[2020-11-15] VITALS: BP 100/56
[2020-11-15 04:00] VITALS: BP 123/61
[2020-11-15 05:09] LABS: CHLORIDE 114 MMOL/L (98-107); POTASSIUM 3.5 MMOL/L (3.6-5.0); SODIUM 141 MMOL/L (135-145)
[2020-11-15 05:11] LABS: GLUCOSE 91 MG/DL (70-105)
[2020-11-15 05:13] LABS: CARBON DIOXIDE 21 MMOL/L (21-32)
[2020-11-15 05:15] LABS: CREATININE SERUM 0.66 MG/DL (0.60-1.30); GFR ESTIMATED > 60
[2020-11-15 05:16] LABS: BUN/CREATININE RATIO 17
[2020-11-15] MEDS: D5W 1000 ML IV SOLUTION 1,000 ML IV SCH (06:15)
[2020-11-15 08:00] VITALS: BP 91/54
--- NOTE | 2020-11-15 09:07 | Discharge Inst-Simple/Standard ---
Discharge Inst-Standard Patient Instructions/Follow Up Plan of Care/Instructions/FU: Please continue to take your medications as written. Please follow up with your primary care physician to follow up this hospital stay. Please continue your tube feeds. Activity as Tolerated: Yes Discharge Diet: Tube Feeding (Jevity 1.5 at 45ml/hr with 125ml of free water flushes qQ4h) Return to The Hospital For: Chest pain, confusion, fevers, if you feel you are getting worse. BETH ELENA MD Nov 15, 2020 09:05
[2020-11-15] MEDS: PANTOPRAZOLE 40 MG (PROTONIX) VIAL IV SCH (09:10)
--- NOTE | 2020-11-15 09:13 | Discharge Summary ---
Diagnosis/Chief Complaint Date of Admission Nov 07, 2020 at 19:56 Date of Discharge Discharge Date: Nov 15, 2020 Admission Diagnosis Aspiration pneumonia Primary Care Ben Parker DO Discharge Diagnosis (1) Aspiration pneumonia Status: Acute (2) Esophageal thickening Status: Acute (3) Gastritis Status: Acute (4) Esophagitis Status: Acute (5) Pancytopenia Status: Acute (6) Intellectual disability Status: Chronic Discharge Summary Discharge Physical Exam Allergies: Coded Allergies: No Known Drug Allergies (Unverified , 08/08/13) Vitals & I&Os Vital Signs Date Time Temp Pulse Resp B/P (MAP) Pulse Ox O2 Delivery O2 Flow Rate FiO2 11/15/20 15:10 36.1 62 18 91/54 93 Room Air 11/14/20 08:43 3.00 General Appearance: No Apparent Distress, Chronically ill, Thin Cardiovascular: Regular Rate, Rhythm, No Murmur Neurologic/Psychiatric: Alert Hospital Course Pt as admitted due to aspiration pneumonia. CT chest was done which revealed esophageal thickening and surgery as consulted. Speech therapy saw patient and he was found to need a dysphagia diet and was unable to take in adequate nutrition to maintain caloric need. He underwent EGD for evaluation of esophageal thickening and PEG tube as placed as well. I discussed the case with his brother who is he guardian and consented to PEG placement. He was started on tube feeds and tolerated them well and reach goal rate prior to discharge. He completed a course of Zosyn to treat aspiration pneumonia. He was discharged back to the [facility] in stable and improved condition. Labs (last 24 hrs) Microbiology 11/11/20 MRSA Screen - Final, Complete MRSA not isolated 11/07/20 Blood Culture - Final, Complete No growth Patient resulted labs reviewed. Pending Labs Imaging: Reviewed Imaging Report Discussion & Recommendations Discharge Planning: >30 minutes discharge planning Discharge Home Medications: Active Scripts Active Reported Ondansetron Odt (Ondansetron) 4 Mg Tab.rapdis 4 Mg PO Q8H PRN Ibuprofen 200 Mg Tablet 400 Mg PO Q6H PRN Ondansetron Odt (Ondansetron) 8 Mg Tab.rapdis 16 Mg PO TIDAC TAKES 2 (8MG) TABS Docusate Sodium 100 Mg Tablet 100 Mg PO BID Vitamin D3 (Cholecalciferol (Vitamin D3)) 50 Mcg Capsule 50 Mcg PO DAILY Psyllium Fiber (Psyllium Husk) 0.52 Gm Capsule 0.52 Gm PO DAILY Melatonin 5 Mg Tablet 5 Mg PO HS Cough Drops (Menthol) 5 Mg Lozenge 5 Mg MM Q1H PRN MDD 8 LOZENGES Calcium Carbonate 500 Mg Tablet 1,000 Mg PO Q4H PRN Tetrahydrozoline HCl 15 Ml Drops 2 Drop OU Q6H PRN Multivitamin 1 Each Tablet 1 Each PO DAILY Imodium A-D (Loperamide HCl) 2 Mg Capsule 1-2 Mg PO UD PRN MDD 4 TABS GIVE 2 TABS AFTER FIRST WATERY STOOL, GIVE AN ADDITIONAL 1 TAB AFTER EACH WATERY STOOL. DO NOT EXCEED 4 DOSES PER 24 HOURS Guaifenesin Dm Syrup (Guaifenesin/Dextromethorphan) 5 Ml Syrup 10 Ml PO Q4H PRN Milk of Magnesia (Magnesium Hydroxide) 400 Mg/5 Ml Oral.susp 30 Ml PO Q12H PRN Benadryl (Diphenhydramine HCl) 25 Mg Capsule 25-50 Mg PO Q6H PRN Pantoprazole Sodium 40 Mg Tablet.dr 40 Mg PO DAILY Olanzapine 10 Mg Tablet 10 Mg PO HS Tylenol (Acetaminophen) 325 Mg Tablet 650 Mg PO Q6H PRN TAKES 2 (325MG) TABLETS Miralax (Polyethylene Glycol 3350) 17 Gm Powd.pack 17 Gm PO DAILY Instructions to patient/family Please see electronic discharge instructions given to patient. Clinical Quality Measures DVT/VTE Risk/Contraindication: Risk Factor Score Per Nursin RFS Level Per Nursing on Admit: 2=Moderate Problem Qualifiers (1) Gastritis: Gastritis type: unspecified gastritis Chronicity: unspecified Gastritis bleeding: presence of bleeding unspecified Qualified Codes: K29.70 - Gastritis, unspecified, without bleeding BETH ELENA MD Nov 15, 2020 09:13
--- NOTE | 2020-11-15 09:55 | NUR ---
Received phone call from Tosha DENG about TF regimen upon discharge. She states that the facility he is going to does not have any TF equipment on hand and wanted to know what they would need for Mr. Neves. Called and spoke with Rubi at the [facility] and discussed different tube feeding options (Continuous vs Bolus feeds). Rubi stated they did not have a pump and probably could not get one before the first of next week. Discussed options for bolus feeding. For bolus feeding, would recommend 1 can Jevity 1.5 x4cans/day (0800/1200/1600/1999). Flush with 100ml free water before/after each bolus for hydration and to prevent the tube from clogging. This provides 1420 kcal (30 kcal/kg); 60 g Pro (1.3 g Pro/kg); and 1520ml free water (with flushes). For continuous feeding, would recommend Jevity 1.5 at goal rate of 40ml/hr, with flushes of 125ml free water q4h, for hydration. At goal rate, provides 1440 kcal (30 kcal/kg); 61 g Pro (1.3 g Pro/kg); and 1480ml free water (with flushes). Notified Rubi of recommendations and equipment needed in email on 11/15. For continuous feeds, pt would need a pump, TF bag and necessary tubing. For bolus feeds, pt would need just a TF bag and tubing to connect bag to PEG tube. Will continue to follow and reassess as pt needs, intake, and status change. Malorie Brooks, MS RD [phone] cell
--- NOTE | 2020-11-15 10:59 | NUR ---
CM/SS: Telephone call from Rubi - nurse from [facility]. She is unable to order the Jevity as the person that orders from [employer] is out today. They can order it on Wednesday. She is informed that pt will be leaving today. This worker will reach out to Dietitian and see if he can make contact with Rubi as to the feeds. Contact made with Reji - Dietitian - he is able to reach out to to Rubi to provided information and related to the tube feed.
--- NOTE | 2020-11-15 11:13 | NUR ---
CM/SS: This worker is able to obtain the Ensure plus for the tube feeding as well as the tube feeling supplies needed. This will allow Merrill time to get it ordered, and pt will have it through the weekend. Rubi is informed of this. She is also faxed the information and discharge orders [phone]. Rubi's cell phone number [phone] is given to CHARLES Samano for report and to call with pt is ready to leave. Rubi thanks this worker for her help and information.
[2020-11-15 12:00] VITALS: BP 101/55
[2020-11-15 12:05] VITALS: BP 91/54
--- NOTE | 2020-11-15 13:58 | NUR ---
REPORT CALLED TO BRANDIE SOTO AT [facility]
[2020-11-15 15:10] VITALS: BP 91/54
== END 2020-11-15 15:00 | disposition home or self-care (01) | DRG 177 ==
LOC: EDUNIT# 14:12 → ER 14:13 → 4TH 19:56
PROVIDERS: ADMIT Internal Medicine; ATTEND Family Medicine
PROC: 0DB38ZX Excision of Lower Esophagus, Via Natural or Artificial Opening Endoscopic, Diagnostic (ICD-10-PCS; 2020-11-12)
PROC: 0DB68ZX Excision of Stomach, Via Natural or Artificial Opening Endoscopic, Diagnostic (ICD-10-PCS; 2020-11-12)
PROC: 0DH63UZ Insertion of Feeding Device into Stomach, Percutaneous Approach (ICD-10-PCS; principal; 2020-11-12 13:50)
DX: J69.0 Pneumonitis due to inhalation of food and vomit (principal); E43 Unspecified severe protein-calorie malnutrition; Z68.1 Body mass index [BMI] 19.9 or less, adult; D61.818 Other pancytopenia; K22.10 Ulcer of esophagus without bleeding; F89 Unspecified disorder of psychological development; G40.909 Epilepsy, unspecified, not intractable, without status epilepticus; K21.9 Gastro-esophageal reflux disease without esophagitis; K59.09 Other constipation; K29.70 Gastritis, unspecified, without bleeding; F41.9 Anxiety disorder, unspecified; K22.8 Other specified diseases of esophagus; R31.9 Hematuria, unspecified; F79 Unspecified intellectual disabilities; E16.2 Hypoglycemia, unspecified; D64.9 Anemia, unspecified; D69.6 Thrombocytopenia, unspecified; R13.10 Dysphagia, unspecified; K29.00 Acute gastritis without bleeding; K44.9 Diaphragmatic hernia without obstruction or gangrene
CPT/HCPCS: 36415; 51702; 71045; 74177; 80048; 80053; 80202; 81000; 82150; 82962; 83605; 83690; 85025; 85027; 87040; 87081; 87635

== ENCOUNTER 2020-11-16 13:08 | Inpatient (IN) | payer MEDICARE, MEDICAID ==
[~2020-11-16] VITALS: Ht 167.6 cm; Wt 63.0 kg
[~2020-11-16 13:08] MED LIST changes: +CALC500T64 PO; +CHOL200074 PO; +DOCU100T2 PO; +IBUP-2473 PO; +MELA5TAB14 PO; +MENT5LOZ3 MM; +MULT-1136 PO; +ONDA4TAB11 PO; +ONDA8TAB13 PO; +PSYL0.525 PO; +TETR15DR49 OU
--- NOTE | 2020-11-16 13:23 | ED Cough/URI ---
General Chief Complaint: Respiratory Problems Stated Complaint: SOB Source: EMS Exam Limitations: no limitations History of Present Illness Date Seen by Provider: Nov 16, 2020 Time Seen by Provider: 13:21 Initial Comments this intellectually disabled gentleman arrives to ER by EMS from [facility] after they were unable to obtain oxygen saturation. On arrival EMS found a SPO2 above 87% on room air. He was admitted to the hospital from 11/07/20//11/15/20 for diagnosis of aspiration pneumonia. Timing/Duration: constant Severity/Quality: moderate Associated Symptoms: cough Allergies and Home Medications Allergies Coded Allergies: No Known Drug Allergies (Unverified , 08/08/13) Home Medications Acetaminophen 325 Mg Tablet, 650 MG PO Q6H PRN for PAIN-MILD (1-4), (Reported) TAKES 2 (325MG) TABLETS Calcium Carbonate 500 Mg Tablet, 1,000 MG PO Q4H PRN for HOLMAN, (Reported) Cholecalciferol (Vitamin D3) 50 Mcg Capsule, 50 MCG PO DAILY, (Reported) Diphenhydramine HCl 25 Mg Capsule, 25-50 MG PO Q6H PRN for ALLERGY SYMPTOMS, (Reported) Docusate Sodium 100 Mg Tablet, 100 MG PO BID, (Reported) Guaifenesin/Dextromethorphan 5 Ml Syrup, 10 ML PO Q4H PRN for COUGH, (Reported) Ibuprofen 200 Mg Tablet, 400 MG PO Q6H PRN for PAIN-MILD (1-4), (Reported) Loperamide HCl 2 Mg Capsule, 1-2 MG PO UD PRN for DIARRHEA, (Reported) GIVE 2 TABS AFTER FIRST WATERY STOOL, GIVE AN ADDITIONAL 1 TAB AFTER EACH WATERY STOOL. DO NOT EXCEED 4 DOSES PER 24 HOURS Magnesium Hydroxide 400 Mg/5 Ml Oral.susp, 30 ML PO Q12H PRN for CONSTIPATION- 7TH LINE, (Reported) Melatonin 5 Mg Tablet, 5 MG PO HS, (Reported) Menthol 5 Mg Lozenge, 5 MG MM Q1H PRN for COUGH, (Reported) Multivitamin 1 Each Tablet, 1 EACH PO DAILY, (Reported) Olanzapine 10 Mg Tablet, 10 MG PO HS, (Reported) Ondansetron 8 Mg Tab.rapdis, 16 MG PO TIDAC, (Reported) TAKES 2 (8MG) TABS Ondansetron 4 Mg Tab.rapdis, 4 MG PO Q8H PRN for NAUSEA/VOMITING-1ST LINE, (Reported) Pantoprazole Sodium 40 Mg Tablet.dr, 40 MG PO DAILY, (Reported) Polyethylene Glycol 3350 17 Gm Powd.pack, 17 GM PO DAILY, (Reported) Psyllium Husk 0.52 Gm Capsule, 0.52 GM PO DAILY, (Reported) Tetrahydrozoline HCl 15 Ml Drops, 2 DROP OU Q6H PRN for REDNESS/IRRITATION, (Reported) Patient Home Medication List Home Medication List Reviewed: Yes Review of Systems Review of Systems Constitutional: see HPI, other (unable to obtain) Past Uizpbml-Lmewmy-Burnsd Hx Patient Social History Alcohol Use: Denies Use Recreational Drug Use: No Smoking Status: Unknown if Ever Smoked 2nd Hand Smoke Exposure: No Recent Hopitalizations: No Immunizations Up To Date Tetanus Booster (TDap): Unknown PED Vaccines UTD: No Date of Pneumonia Vaccine: Aug 29, 2009 Date of Influenza Vaccine: Sep 29, 2017 Seasonal Allergies Seasonal Allergies: No Past Medical History Surgeries: Yes (CYST FROM CHEEK, PEG TUBE) Respiratory: No Currently Using CPAP: No Currently Using BIPAP: No Cardiac: No Neurological: Yes (MR) Developmental Disorder, Seizure Disorder Reproductive Disorders: No Sexually Transmitted Disease: No HIV/AIDS: No Genitourinary: No Gastrointestinal: Yes Gastroesophageal Reflux, Gastrointestinal Bleed, Chronic Constipation, Esophagitis, Ulcer, Gall Bladder Disease Musculoskeletal: Yes (foot deforminties) Endocrine: No HEENT: No Loss of Vision: Denies Cancer: No Psychosocial: Yes Anxiety Integumentary: No Blood Disorders: No Family Medical History Patient reports no known family medical history. No Pertinent Family Hx Physical Exam Capillary Refill : Height: 5'6.00" Weight: 139lbs. 0.0oz. 63.255182xm; 17.75 BMI Method:Actual General Appearance: WD/WN, no apparent distress, other (93% on room air. No respiratory distress. Nonverbal.) Eyes: Bilateral Eye Normal Inspection, Bilateral Eye PERRL, Bilateral Eye EOMI Neck: non-tender, full range of motion Respiratory: no respiratory distress, no accessory muscle use, crackles Cardiovascular: regular rate, rhythm, no murmur Gastrointestinal: normal bowel sounds, non tender, soft Neurologic/Psychiatric: alert Skin: normal color, warm/dry Focused Exam Lactate Level 11/16/20 14:05: Lactic Acid Level 1.65 Lactic Acid Level Laboratory Tests Test 11/16/20 14:05 Lactic Acid Level 1.65 MMOL/L (0.50-2.00) Progress/Results/Core Measures Suspected Sepsis SIRS Temperature: Pulse: Respiratory Rate: Laboratory Tests 11/16/20 14:05: White Blood Count 6.7 Blood Pressure / Mean: 11/16/20 14:05: Lactic Acid Level 1.65 Laboratory Tests 11/16/20 14:05: Creatinine 0.79, Platelet Count 89L, Total Bilirubin 0.4 Results/Orders Lab Results Laboratory Tests Test 11/16/20 13:39 11/16/20 14:05 Range/Units Coronavirus 2019 (GIULIANA) Negative Negative White Blood Count 6.7 4.3-11.0 10^3/uL Red Blood Count 2.34 L 4.30-5.52 10^6/uL Hemoglobin 6.9 *L 13.3-17.7 g/dL Hematocrit 21 L 40-54 % Mean Corpuscular Volume 89 80-99 fL Mean Corpuscular Hemoglobin 29 25-34 pg Mean Corpuscular Hemoglobin Concent 33 32-36 g/dL Red Cell Distribution Width 17.8 H 10.0-14.5 % Platelet Count 89 L 130-400 10^3/uL Mean Platelet Volume 11.9 9.0-12.2 fL Immature Granulocyte % (Auto) 1 % Neutrophils (%) (Auto) 85 H 42-75 % Lymphocytes (%) (Auto) 8 L 12-44 % Monocytes (%) (Auto) 6 0-12 % Eosinophils (%) (Auto) 0 0-10 % Basophils (%) (Auto) 0 0-10 % Neutrophils # (Auto) 5.7 1.8-7.8 10^3/uL Lymphocytes # (Auto) 0.5 L 1.0-4.0 10^3/uL Monocytes # (Auto) 0.4 0.0-1.0 10^3/uL Eosinophils # (Auto) 0.0 0.0-0.3 10^3/uL Basophils # (Auto) 0.0 0.0-0.1 10^3/uL Immature Granulocyte # (Auto) 0.1 0.0-0.1 10^3/uL D-Dimer 3.32 H 0.00-0.49 UG/ML Sodium Level 141 135-145 MMOL/L Potassium Level 4.0 3.6-5.0 MMOL/L Chloride Level 111 H 98-107 MMOL/L Carbon Dioxide Level 23 21-32 MMOL/L Anion Gap 7 5-14 MMOL/L Blood Urea Nitrogen 14 7-18 MG/DL Creatinine 0.79 0.60-1.30 MG/DL Estimat Glomerular Filtration Rate > 60 BUN/Creatinine Ratio 18 Glucose Level 69 L 70-105 MG/DL Lactic Acid Level 1.65 0.50-2.00 MMOL/L Calcium Level 8.3 L 8.5-10.1 MG/DL Corrected Calcium 9.7 8.5-10.1 MG/DL Total Bilirubin 0.4 0.1-1.0 MG/DL Aspartate Amino Transf (AST/SGOT) 28 5-34 U/L Alanine Aminotransferase (ALT/SGPT) 23 0-55 U/L Alkaline Phosphatase 108 40-136 U/L B-Type Natriuretic Peptide 278.8 H <100.0 PG/ML Total Protein 5.3 L 6.4-8.2 GM/DL Albumin 2.2 L 3.2-4.5 GM/DL Procalcitonin 0.58 H <0.10 NG/ML My Orders Orders - MASON SWAIN APRN Cbc With Automated Diff (11/16/20 13:17) Comprehensive Metabolic Panel (11/16/20 13:17) BNP (11/16/20 13:17) Ekg Tracing (11/16/20 13:17) Chest 1 View, Ap/Pa Only (11/16/20 13:17) Procalcitonin (Pct) (11/16/20 13:17) Fibrin Degradation Products (11/16/20 13:17) Blood Culture (11/16/20 13:17) Lactic Acid Analyzer (11/16/20 13:17) Covid 19 Inhouse Test (11/16/20 13:23) Red Cells Leukocytes Reduced (11/16/20 14:17) Pantoprazole Injection (Protonix Injecti (11/16/20 14:30) Type And Screen (11/16/20 14:17) Medications Given in ED Current Medications Medications Dose Ordered Sig/Yoel Route Start Time Stop Time Status Last Admin Dose Admin Pantoprazole 80 mg ONCE ONCE IV 11/16/20 14:30 11/16/20 14:31 DC 12/19/20 14:40 80 MG Vital Signs/I&O Capillary Refill : Diagnostic Imaging Diagonstic Imaging: Xray Comments NAME: KIRT THOMPSON [facility] REC#: [id number] PT STATUS: REG ER : 1955 PHYSICIAN: MASON SWAIN APRN ADMIT DATE: 11/16/20/ER Draft Date of Exam:11/16/20 CHEST 1 VIEW, AP/PA ONLY INDICATION: Shortness of breath COMPARISON: 11/07/2020 FINDINGS: There is severe 5 lobed airspace disease, new from the prior. There is blunting of the right angle which suggests a small right pleural effusion. The heart size unremarkable. IMPRESSION: New 5 lobed infiltrates and airspace disease with likely small right pleural effusion. Dictated on workstation # [id number] Dict: 11/16/20 1356 Trans: 11/16/20 1408 [facility] [id number] Interpreted by: KELI AGUILAR Electronically signed by: Departure Impression Primary Impression: Pneumonia Additional Impression: Anemia Disposition: ADMITTED INPATIENT Condition: Stable Admissions Decision to Admit Reason: Admit from ER (General) Decision to Admit/Date: Nov 16, 2020 Time/Decision to Admit Time: 17:38 Departure-Patient Inst. Referrals: JUSTIN DUNBAR DO (PCP/Family) Primary Care Physician MASON SWAIN APRN Nov 16, 2020 13:23
--- NOTE | 2020-11-16 14:09 | Diagnostic Imaging Report ---
INDICATION: Shortness of breath COMPARISON: 11/07/2020 FINDINGS: There is severe 5 lobed airspace disease, new from the prior. There is blunting of the right angle which suggests a small right pleural effusion. The heart size unremarkable. IMPRESSION: New 5 lobed infiltrates and airspace disease with likely small right pleural effusion. Dictated by: Dictated on workstation # [id number]
[2020-11-16 14:15] LABS: BASOPHILS % (AUTO) 0 % (0-10); EOSINOPHILS % (AUTO) 0 % (0-10)
[2020-11-16 14:17] LABS: HEMATOCRIT 21 % (40-54); LYMPHOCYTES # (AUTO) 0.5 10^3/uL (1.0-4.0); LYMPHOCYTES % (AUTO) 8 % (12-44); MEAN CORPUSCULAR HEMOGLOBIN 29 pg (25-34); MEAN CORPUSCULAR HGB CONC 33 g/dL (32-36); MEAN CORPUSCULAR VOLUME 89 fL (80-99); MEAN PLATELET VOLUME 11.9 fL (9.0-12.2); MONOCYTES # (AUTO) 0.4 10^3/uL (0.0-1.0); MONOCYTES % (AUTO) 6 % (0-12); NEUTROPHILS # (AUTO) 5.7 10^3/uL (1.8-7.8); NEUTROPHILS % (AUTO) 85 % (42-75); WHITE BLOOD COUNT 6.7 10^3/uL (4.3-11.0)
[2020-11-16 14:19] LABS: HEMOGLOBIN 6.9 g/dL (13.3-17.7); PLATELET COUNT 89 10^3/uL (130-400)
[2020-11-16] MEDS ORDERED: PANTOPRAZOLE 40 MG (PROTONIX) VIAL IV ONE (14:30)
[2020-11-16 14:33] LABS: ALBUMIN 2.2 GM/DL (3.2-4.5); CHLORIDE 111 MMOL/L (98-107); SODIUM 141 MMOL/L (135-145)
[2020-11-16 14:35] LABS: CALCIUM 8.3 MG/DL (8.5-10.1)
[2020-11-16 14:36] LABS: GLUCOSE 69 MG/DL (70-105); TOTAL PROTEIN 5.3 GM/DL (6.4-8.2)
[2020-11-16 14:37] LABS: CARBON DIOXIDE 23 MMOL/L (21-32)
[2020-11-16 14:38] LABS: BILIRUBIN,TOTAL 0.4 MG/DL (0.1-1.0)
[2020-11-16 14:39] LABS: ALKALINE PHOSPHATASE 108 U/L (40-136); CREATININE SERUM 0.79 MG/DL (0.60-1.30); GFR ESTIMATED > 60
[2020-11-16 14:40] LABS: BUN/CREATININE RATIO 18
[2020-11-16 14:42] LABS: ALANINE AMINOTRANSFERASE 23 U/L (0-55)
--- NOTE | 2020-11-16 15:48 | History & Physical-Hospitalist ---
History of Present Illness HPI/Chief Complaint Pt is a 65yoCM with a PMH of ID who lives at [place] who presented to the ER due to hypoxia. He was just discharged from the hospital yesterday after being admitted for aspiration pneumonia and PEG tube placement. He completed a week long course of IV abx prior to discharge. He was doing well off oxygen. Today he developed some shortness of breath and hypoxia prompting evaluation in the ER. He was mildly hypoxic at 87& and placed on 2-3lpm NC and was up to 95%. He is unable to provide me any history due to baseline mentation. Source: patient Date Seen 11/16/20 Time Seen by a Provider: 15:40 Attending Physician Beth Gage MD PCP Ben Parker DO Referring Physician Date of Admission Nov 16, 2020 at 15:20 Home Medications & Allergies Home Medications Reviewed patient Home Medication Reconciliation performed by pharmacy medication reconciliations computer field technician and/or nursing. Patients Allergies have been reviewed. Allergies Allergies Coded Allergies No Known Drug Allergies (Unverified08/08/13) Past Lhmdmer-Jkppbg-Nwqlri Hx Past Med/Social Hx: Reviewed Nursing Past Med/Soc Hx Patient Social History Marrital Status: single Employed/Student: unemployed Alcohol Use: Denies Use Recreational Drug Use: No Smoking Status: Unknown if Ever Smoked 2nd Hand Smoke Exposure: No Recent Foreign Travel: No Recent Hopitalizations: No Immunizations Up To Date Tetanus Booster (TDap): Unknown Pediatric: No Date of Pneumonia Vaccine: Aug 29, 2009 Date of Influenza Vaccine: Sep 29, 2017 Seasonal Allergies Seasonal Allergies: No Past Medical History Currently Using CPAP: No Currently Using BIPAP: No Neurological: Developmental Disorder, Seizure Disorder Reproductive: No Sexually Transmitted Disease: No HIV/AIDS: No Gastrointestinal: Gastroesophageal Reflux, Gastrointestinal Bleed, Chronic Constipation, Esophagitis, Ulcer, Gall Bladder Disease Loss of Vision: Denies Psychosocial: Anxiety History of Blood Disorders: No Family History Reviewed Nursing Family Hx Patient reports no known family medical history. No Pertinent Family Hx Review of Systems ROS-Unable to Obtain: nonverbal, ko snot communicate Constitutional: see HPI Physical Exam Physical Exam Vital Signs Vital Signs - First Documented 11/16/20 11/16/20 11/17/20 13:15 15:46 03:16 Temp 35.8 Pulse 90 Resp 22 B/P (MAP) 122/63 (82) Pulse Ox 94 O2 Delivery Nasal Cannula O2 Flow Rate 2.00 FiO2 28 Capillary Refill : Height, Weight, BMI Height: 5'6.00" Weight: 139lbs. 0.0oz. 63.224363hn; 17.75 BMI Method:Actual General Appearance: Chronically ill, Thin HEENT: PERRL/EOMI, Moist Mucous Membranes; No Scleral Icterus (L), No Scleral Icterus (R) Neck: Normal Inspection, Supple Respiratory: Lungs Clear, No Accessory Muscle Use, No Respiratory Distress Cardiovascular: Regular Rate, Rhythm, No JVD, No Murmur Neurologic/Psychiatric: Alert, Oriented x3, Normal Mood/Affect Results Results/Procedures Labs Laboratory Tests 11/16/20 14:05 11/17/20 08:30 Patient resulted labs reviewed. Imaging: Reviewed Imaging Report [facility] [place], [place] NAME: KIRT THOMPSON [facility] REC#: [id number] PT STATUS: REG ER : 1955 PHYSICIAN: MASON SWAIN APRN ADMIT DATE: 11/16/20/ER Signed Date of Exam:11/16/20 CHEST 1 VIEW, AP/PA ONLY INDICATION: Shortness of breath COMPARISON: 11/07/2020 FINDINGS: There is severe 5 lobed airspace disease, new from the prior. There is blunting of the right angle which suggests a small right pleural effusion. The heart size unremarkable. IMPRESSION: New 5 lobed infiltrates and airspace disease with likely small right pleural effusion. Dictated by: Dictated on workstation # [id number] Dict: 11/16/20 1356 Trans: 11/16/20 1425 [facility] [id number] Interpreted by: KELI AGUILAR Electronically signed by: KELI AGUILAR 11/16/20 1425 Assessment/Plan Admission Diagnosis Acute respiratory failure due to aspiration pneumonia Admission Status: Inpatient Order (span 2 midnights) Reason for Inpatient Admission: see below Assessment and Plan Acute respiratory failure likely due to aspiration pneumonia COVID PUI Vanc and Merrem as just completed Zosyn Cultures pending COVID swab pending, rapid negative MAT protocol Maintain sats >90 Intellectual Disability Dysphagia PEM- moderate Hypoglycemia PEG placed last week Jevity 1.5 at 45ml/hr with 125ml Q4 FWF per previous nutrition note Speech therapy consult Anemia Thrombocyotpenia 1 unit pRBCs ordered in ER, trend Surgery consulted, appreciate recs Plts up from last admission, trend DVT ppx: SCDs due to anemi and thrombocytopenia Diagnosis/Problems Diagnosis/Problems (1) Aspiration pneumonia Status: Acute (2) Gastritis Status: Acute (3) Pancytopenia Status: Acute (4) Intellectual disability Status: Chronic BETH GAGE MD Nov 16, 2020 15:48
[2020-11-16] MEDS ORDERED: NS IV 500 ML 500 ML ONE ×2 (15:55→16:00)
[2020-11-16 16:40] VITALS: BP 123/71
[2020-11-16 16:42] VITALS: BP 119/45
[2020-11-16 16:59] VITALS: BP 123/93
--- NOTE | 2020-11-16 19:02 | Consultation - Surgery ---
History of Present Illness History of Present Illness Patient Consulted On(taylor/time) 11/16/20 18:54 Date Seen by Provider: Nov 16, 2020 Time Seen by Provider: 16:00 History of Present Illness Consult requested by Dr. Gage for anemia Patient is a 65-year-old male with intellectual disability unable to discuss. Patient was brought by EMS due to hypoxia. Patient just discharged from hospital yesterday. Patient had gastrostomy tube during last admission due to dysphagia. Patient unable to provide any information. During gastrostomy tube patient was noted to have healing antral ulcer and erosive esophagitis. Allergies and Home Medications Allergies Coded Allergies: No Known Drug Allergies (Unverified , 08/08/13) Home Medications Acetaminophen 325 Mg Tablet, 650 MG PO Q6H PRN for PAIN-MILD (1-4), (Reported) TAKES 2 (325MG) TABLETS Calcium Carbonate 500 Mg Tablet, 1,000 MG PO Q4H PRN for HOLMAN, (Reported) Cholecalciferol (Vitamin D3) 50 Mcg Capsule, 50 MCG PO DAILY, (Reported) Diphenhydramine HCl 25 Mg Capsule, 25-50 MG PO Q6H PRN for ALLERGY SYMPTOMS, (Reported) Docusate Sodium 100 Mg Tablet, 100 MG PO BID, (Reported) Guaifenesin/Dextromethorphan 5 Ml Syrup, 10 ML PO Q4H PRN for COUGH, (Reported) Ibuprofen 200 Mg Tablet, 400 MG PO Q6H PRN for PAIN-MILD (1-4), (Reported) Loperamide HCl 2 Mg Capsule, 1-2 MG PO UD PRN for DIARRHEA, (Reported) GIVE 2 TABS AFTER FIRST WATERY STOOL, GIVE AN ADDITIONAL 1 TAB AFTER EACH WATERY STOOL. DO NOT EXCEED 4 DOSES PER 24 HOURS Magnesium Hydroxide 400 Mg/5 Ml Oral.susp, 30 ML PO Q12H PRN for CONSTIPATION- 7TH LINE, (Reported) Melatonin 5 Mg Tablet, 5 MG PO HS, (Reported) Menthol 5 Mg Lozenge, 5 MG MM Q1H PRN for COUGH, (Reported) Multivitamin 1 Each Tablet, 1 EACH PO DAILY, (Reported) Olanzapine 10 Mg Tablet, 10 MG PO HS, (Reported) Ondansetron 8 Mg Tab.rapdis, 16 MG PO TIDAC, (Reported) TAKES 2 (8MG) TABS Ondansetron 4 Mg Tab.rapdis, 4 MG PO Q8H PRN for NAUSEA/VOMITING-1ST LINE, (Reported) Pantoprazole Sodium 40 Mg Tablet.dr, 40 MG PO DAILY, (Reported) Polyethylene Glycol 3350 17 Gm Powd.pack, 17 GM PO DAILY, (Reported) Psyllium Husk 0.52 Gm Capsule, 0.52 GM PO DAILY, (Reported) Tetrahydrozoline HCl 15 Ml Drops, 2 DROP OU Q6H PRN for REDNESS/IRRITATION, (Reported) Patient Home Medication List Home Medication List Reviewed: Yes Past Emxoxag-Zfzbqo-Cxutjn Hx Patient Social History Alcohol Use: Denies Use Recreational Drug Use: No Smoking Status: Unknown if Ever Smoked 2nd Hand Smoke Exposure: No Recent Foreign Travel: No Contact w/Someone Who Travel: No Recent Infectious Disease Expo: No Recent Hopitalizations: No Immunizations Up To Date Tetanus Booster (TDap): Unknown PED Vaccines UTD: No Date of Pneumonia Vaccine: Aug 29, 2009 Date of Influenza Vaccine: Sep 29, 2017 Seasonal Allergies Seasonal Allergies: No Surgeries History of Surgeries: Yes (CYST FROM CHEEK, PEG TUBE) Respiratory History of Respiratory Disorde: No Cardiovascular History of Cardiac Disorders: No Neurological History of Neurological Disord: Yes (MR) Neurological Disorders: Developmental Disorder, Seizure Disorder Reproductive System Hx Reproductive Disorders: No Sexually Transmitted Disease: No HIV/AIDS: No Genitourinary History of Genitourinary Disor: No Gastrointestinal History of Gastrointestinal Di: Yes Gastrointestinal Disorders: Gastroesophageal Reflux, Gastrointestinal Bleed, Chronic Constipation, Esophagitis, Ulcer, Gall Bladder Disease Musculoskeletal History of Musculoskeletal Dis: Yes (foot deforminties) Endocrine History of Endocrine Disorders: No HEENT History of HEENT Disorders: No Loss of Vision: Denies Cancer History of Cancer: No Psychosocial History of Psychiatric Problem: Yes Behavioral Health Disorders: Anxiety Integumentary History of Skin or Integumenta: No Blood Transfusions History of Blood Disorders: No Reviewed Nursing Assessment Reviewed/Agree w Nursing PMH: Yes Family Medical History Significant Family History: No Pertinent Family Hx Family Medial History: Patient reports no known family medical history. Review of Systems-General ROS-Unable to Obtain: Unable to obtain due to patient condition Physical Exam-General Problems Physical Exam Vital Signs Vital Signs - First Documented 11/16/20 15:46 Pulse 76 Resp 14 B/P (MAP) 123/71 Pulse Ox 98 O2 Delivery Nasal Cannula O2 Flow Rate 2.00 Capillary Refill : General Appearance: no apparent distress, thin HEENT: PERRL/EOMI, normal ENT inspection Neck: non-tender, supple Respiratory: chest non-tender, no respiratory distress, no accessory muscle use Cardiovascular: regular rate, rhythm, no JVD Gastrointestinal: non tender, soft, no organomegaly, other (Gastrostomy tube left upper quadrant) Rectal: deferred Back: no CVA tenderness, no vertebral tenderness Extremities: non-tender, normal inspection Neurologic/Psychiatric: alert; No oriented x 3 Skin: warm/dry, pallor Lymphatic: no adenopathy Data Review Labs Laboratory Tests 11/16/20 13:39: Coronavirus 2019 (GIULIANA) Negative 11/16/20 14:05: White Blood Count 6.7, Red Blood Count 2.34L, Hemoglobin 6.9*L, Hematocrit 21L, Mean Corpuscular Volume 89, Mean Corpuscular Hemoglobin 29, Mean Corpuscular Hemoglobin Concent 33, Red Cell Distribution Width 17.8H, Platelet Count 89L, Mean Platelet Volume 11.9, Immature Granulocyte % (Auto) 1, Neutrophils (%) (Auto) 85H, Lymphocytes (%) (Auto) 8L, Monocytes (%) (Auto) 6, Eosinophils (%) (Auto) 0, Basophils (%) (Auto) 0, Neutrophils # (Auto) 5.7, Lymphocytes # (Auto) 0.5L, Monocytes # (Auto) 0.4, Eosinophils # (Auto) 0.0, Basophils # (Auto) 0.0, Immature Granulocyte # (Auto) 0.1, D-Dimer 3.32H, Sodium Level 141, Potassium Level 4.0, Chloride Level 111H, Carbon Dioxide Level 23, Anion Gap 7, Blood Urea Nitrogen 14, Creatinine 0.79, Estimat Glomerular Filtration Rate > 60, BUN/Creatinine Ratio 18, Glucose Level 69L, Lactic Acid Level 1.65, Calcium Level 8.3L, Corrected Calcium 9.7, Total Bilirubin 0.4, Aspartate Amino Transf (AST/SGOT) 28, Alanine Aminotransferase (ALT/SGPT) 23, Alkaline Phosphatase 108, B-Type Natriuretic Peptide 278.8H, Total Protein 5.3L, Albumin 2.2L, Procalcitonin 0.58H Assessment/Plan Assessment/Plan Assessment/Plan Aspiration pneumonia-chest x-ray with 5 lobed infiltrates and airspace disease with likely small right pleural effusion. Anemia Healing antral ulcer, erosive esophagitis Intellectual disability Patient currently n.p.o. Being transfused packed red blood cells Follow hemoglobin and transfusing as needed Protonix Tube feeds as tolerates No surgical intervention at this time. Clinical Quality Measures DVT/VTE Risk/Contraindication: Risk Factor Score Per Nursin RFS Level Per Nursing on Admit: 4+=Very High KARYN MENDOZA DO Nov 16, 2020 19:02
[2020-11-16 20:00] VITALS: BP 128/77
[2020-11-17] VITALS (12 sets, daily range): BP systolic 89–125; BP diastolic 42–96
[2020-11-17] MEDS ORDERED: RT-ALBUTEROL INHALER HFA (VENTOLIN HFA) 18 GM IH PRN (03:30)
[2020-11-17] MEDS ORDERED: FLU QUAD HIGH DOSE 240 MCG/0.7 ML 2020-21 (FLUZONE) IM ONE (07:00)
[2020-11-17] MEDS: PANTOPRAZOLE 40 MG (PROTONIX) VIAL IV SCH (08:30)
[2020-11-17] MEDS: HALOPERIDOL 5 MG/ML (HALDOL) VIAL IM PRN ×2 (08:30→12:03)
[2020-11-17 08:39] LABS: BASOPHILS % (AUTO) 0 % (0-10); MONOCYTES # (AUTO) 0.4 10^3/uL (0.0-1.0)
[2020-11-17 08:40] LABS: EOSINOPHILS % (AUTO) 1 % (0-10); HEMATOCRIT 23 % (40-54); HEMOGLOBIN 7.7 g/dL (13.3-17.7); LYMPHOCYTES # (AUTO) 0.6 10^3/uL (1.0-4.0); LYMPHOCYTES % (AUTO) 13 % (12-44); MEAN CORPUSCULAR HEMOGLOBIN 29 pg (25-34); MEAN CORPUSCULAR HGB CONC 33 g/dL (32-36); MEAN CORPUSCULAR VOLUME 89 fL (80-99); MEAN PLATELET VOLUME 12.1 fL (9.0-12.2); MONOCYTES % (AUTO) 8 % (0-12); NEUTROPHILS # (AUTO) 3.7 10^3/uL (1.8-7.8); NEUTROPHILS % (AUTO) 79 % (42-75); PLATELET COUNT 70 10^3/uL (130-400); WHITE BLOOD COUNT 4.7 10^3/uL (4.3-11.0)
[2020-11-17 09:02] LABS: ALANINE AMINOTRANSFERASE 23 U/L (0-55); ALBUMIN 2.3 GM/DL (3.2-4.5); ALKALINE PHOSPHATASE 104 U/L (40-136); BILIRUBIN,TOTAL 0.5 MG/DL (0.1-1.0); BUN/CREATININE RATIO 20; CALCIUM 8.4 MG/DL (8.5-10.1); CARBON DIOXIDE 23 MMOL/L (21-32); CHLORIDE 111 MMOL/L (98-107); CREATININE SERUM 0.79 MG/DL (0.60-1.30); GFR ESTIMATED > 60; GLUCOSE 72 MG/DL (70-105); SODIUM 140 MMOL/L (135-145); TOTAL PROTEIN 5.6 GM/DL (6.4-8.2)
--- NOTE | 2020-11-17 10:12 | Progress Note - Hospitalist ---
Subjective HPI/CC On Admission Date Seen by Provider: Nov 17, 2020 Time Seen by Provider: 10:06 Pt is a 65yoCM with a PMH of ID who lives at [place] who presented to the ER due to hypoxia. He was just discharged from the hospital yesterday after being admitted for aspiration pneumonia and PEG tube placement. He completed a week lo ng course of IV abx prior to discharge. He was doing well off oxygen. Today he developed some shortness of breath and hypoxia prompting evaluation in the ER. He was mildly hypoxic at 87& and placed on 2-3lpm NC and was up to 95%. He is unable to provide me any history due to baseline mentation. Subjective/Events-last exam Pt laying in bed and resting. Was agitated overnight and responded well to Haldol. Laying comfortably in bed. Focused Exam Lactate Level 11/16/20 14:05: Lactic Acid Level 1.65 Objective Exam Vital Signs Vital Signs Date Time Temp Pulse Resp B/P (MAP) Pulse Ox O2 Delivery O2 Flow Rate FiO2 11/17/20 07:48 35.2 52 16 123/67 (85) 95 Nasal Cannula 2.00 11/17/20 03:16 28 Capillary Refill : Less Than 3 Seconds General Appearance: No Apparent Distress, Chronically ill, Thin Respiratory: Decreased Breath Sounds; No Wheezing; Other (on NC) Cardiovascular: Regular Rate, Rhythm, No Murmur Gastrointestinal: Normal Bowel Sounds, Non Tender, Soft Genital/Rectal: Other (luciano in place) Neurologic/Psychiatric: Alert, Disoriented, Other (noncommunicative) Results/Procedures Lab Laboratory Tests 11/16/20 14:05 11/17/20 08:30 Patient resulted labs reviewed. Imaging: Reviewed Imaging Report Assessment/Plan Assessment and Plan Assess & Plan/Chief Complaint Acute respiratory failure likely due to aspiration pneumonia COVID PUI Vanc and Merrem as just completed Zosyn Cultures pending COVID PCR still pending, rapid negative MAT protocol Maintain sats >90 Pulm consulted, appreciate recs D-dimer elevated, will check CTA Chest Intellectual Disability Dysphagia PEM- moderate Hypoglycemia PEG placed last week Jevity 1.5 at 45ml/hr with 125ml Q4 FWF per previous nutrition note Speech therapy consult- will likely need barium swallow Anemia Thrombocyotpenia Hgb up appropriately to 7.7 after 1 unit pRBCs Surgery consulted, appreciate recs Plts down to 70, trend DVT ppx: SCDs due to anemia and thrombocytopenia Diagnosis/Problems Diagnosis/Problems (1) Aspiration pneumonia Status: Acute (2) Gastritis Status: Acute (3) Pancytopenia Status: Acute (4) Intellectual disability Status: Chronic Clinical Quality Measures DVT/VTE Risk/Contraindication: Risk Factor Score Per Nursin RFS Level Per Nursing on Admit: 4+=Very High BETH ELENA MD Nov 17, 2020 10:12
[2020-11-17] MEDS ORDERED: MILK OF MAGNESIA 400 MG/5 ML 30 ML UDC PO PRN (10:15)
[2020-11-17] MEDS ORDERED: ACETAMINOPHEN 325 MG TABLET PO PRN (10:15)
[2020-11-17] MEDS ORDERED: IBUPROFEN TABLET 200 MG TAB PO PRN (10:15)
[2020-11-17] MEDS ORDERED: LIDOCAINE 1% INJ 20 ML 20 ML VIAL ONE (11:12)
[2020-11-17] MEDS ORDERED: IOHEXOL 350 MG/ML 100 ML (OMNIPAQUE 350) VIAL IV ONE (11:45)
[2020-11-17] MEDS ORDERED: HOLD METFORMIN - RECEIVED CONTRAST 20 ML VIAL IV SCH (11:45)
[2020-11-17] MEDS ORDERED: NS 100 ML (IVPB) BAG IV ONE (11:45)
[2020-11-17] MEDS ORDERED: LORazepam INJ 2 MG/ML (ATIVAN) VIAL ONE (12:27)
--- NOTE | 2020-11-17 13:30 | Progress Note - Surgery ---
Subjective Date Seen by a Provider: Nov 17, 2020 Time Seen by a Provider: 13:25 Subjective/Events-last exam Patient laying in bed comfortably. Just pulled out gastrostomy tube it appears. Patient nonverbal. Does not seem to be in any acute distress. Hemoglobin increased. Focused Exam Lactate Level 11/16/20 14:05: Lactic Acid Level 1.65 Objective Exam Vital Signs Date Time Temp Pulse Resp B/P (MAP) Pulse Ox O2 Delivery O2 Flow Rate FiO2 11/17/20 11:32 35.2 67 18 118/75 (89) 91 Nasal Cannula 2.00 11/17/20 07:48 35.2 52 16 123/67 (85) 95 Nasal Cannula 2.00 11/17/20 07:00 51 11/17/20 04:00 93 Nasal Cannula 2.00 11/17/20 03:35 36.0 60 16 113/96 (102) 93 Nasal Cannula 2.00 11/17/20 03:16 33.4 61 97 28 11/17/20 01:00 60 11/17/20 00:34 61 11/16/20 23:46 97 Nasal Cannula 2.00 11/16/20 23:39 33.3 61 18 97 Nasal Cannula 2.00 11/16/20 21:00 98 Nasal Cannula 2.50 11/16/20 20:00 98 Nasal Cannula 2.50 11/16/20 20:00 36.0 60 16 128/77 (94) 98 Nasal Cannula 2.50 11/16/20 19:00 61 11/16/20 17:07 73 11/16/20 16:59 36.2 73 18 123/93 97 Nasal Cannula 2.00 11/16/20 16:42 36.0 75 18 119/45 (69) 98 Nasal Cannula 2.00 11/16/20 16:42 36.0 75 18 119/45 98 Nasal Cannula 2.00 11/16/20 16:40 98 Nasal Cannula 2.00 11/16/20 16:40 36.0 76 14 123/71 98 Nasal Cannula 2.00 2.00 11/16/20 15:46 76 14 123/71 98 Nasal Cannula 2.00 11/16/20 14:05 35.8 82 20 106/76 98 Nasal Cannula I & O 11/17/20 06:59 Intake Total 0 ml Output Total 1050 ml Balance -1050 ml Capillary Refill : Less Than 3 Seconds General Appearance: No Apparent Distress, Chronically ill, Thin HEENT: PERRL/EOMI, Moist Mucous Membranes; No Scleral Icterus (L), No Scleral Icterus (R) Neck: Normal Inspection, Supple Respiratory: Chest Non Tender, Lungs Clear, No Accessory Muscle Use, No Respiratory Distress Cardiovascular: Regular Rate, Rhythm, No JVD Gastrointestinal: non tender, soft, no organomegaly, other (Gastrostomy tube left upper quadrant has been pulled out) Neurologic/Psychiatric: Alert, Oriented x3, Normal Mood/Affect Skin: Normal Color, Warm/Dry Lymphatic: No Adenopathy Results Lab Laboratory Tests 11/16/20 13:39: Coronavirus 2019 ([facility]ULIANA) Negative 11/16/20 14:05: White Blood Count 6.7, Red Blood Count 2.34L, Hemoglobin 6.9*L, Hematocrit 21L, Mean Corpuscular Volume 89, Mean Corpuscular Hemoglobin 29, Mean Corpuscular Hemoglobin Concent 33, Red Cell Distribution Width 17.8H, Platelet Count 89L, Mean Platelet Volume 11.9, Immature Granulocyte % (Auto) 1, Neutrophils (%) (Auto) 85H, Lymphocytes (%) (Auto) 8L, Monocytes (%) (Auto) 6, Eosinophils (%) (Auto) 0, Basophils (%) (Auto) 0, Neutrophils # (Auto) 5.7, Lymphocytes # (Auto) 0.5L, Monocytes # (Auto) 0.4, Eosinophils # (Auto) 0.0, Basophils # (Auto) 0.0, Immature Granulocyte # (Auto) 0.1, D-Dimer 3.32H, Sodium Level 141, Potassium Level 4.0, Chloride Level 111H, Carbon Dioxide Level 23, Anion Gap 7, Blood Urea Nitrogen 14, Creatinine 0.79, Estimat Glomerular Filtration Rate > 60, BUN/Creatinine Ratio 18, Glucose Level 69L, Lactic Acid Level 1.65, Calcium Level 8.3L, Corrected Calcium 9.7, Total Bilirubin 0.4, Aspartate Amino Transf (AST/SGOT) 28, Alanine Aminotransferase (ALT/SGPT) 23, Alkaline Phosphatase 108, B-Type Natriuretic Peptide 278.8H, Total Protein 5.3L, Albumin 2.2L, Procalcitonin 0.58H 11/16/20 16:55: 11/17/20 08:30: White Blood Count 4.7, Red Blood Count 2.62L, Hemoglobin 7.7L, Hematocrit 23L, Mean Corpuscular Volume 89, Mean Corpuscular Hemoglobin 29, Mean Corpuscular Hemoglobin Concent 33, Red Cell Distribution Width 17.1H, Platelet Count 70L, Mean Platelet Volume 12.1, Immature Granulocyte % (Auto) 0, Neutrophils (%) (Auto) 79H, Lymphocytes (%) (Auto) 13, Monocytes (%) (Auto) 8, Eosinophils (%) (Auto) 1, Basophils (%) (Auto) 0, Neutrophils # (Auto) 3.7, Lymphocytes # (Auto) 0.6L, Monocytes # (Auto) 0.4, Eosinophils # (Auto) 0.0, Basophils # (Auto) 0.0, Immature Granulocyte # (Auto) 0.0, Sodium Level 140, Potassium Level 4.0, Chloride Level 111H, Carbon Dioxide Level 23, Anion Gap 6, Blood Urea Nitrogen 16, Creatinine 0.79, Estimat Glomerular Filtration Rate > 60, BUN/Creatinine Ratio 20, Glucose Level 72, Calcium Level 8.4L, Corrected Calcium 9.8, Total Bilirubin 0.5, Aspartate Amino Transf (AST/SGOT) 29, Alanine Aminotransferase (ALT/SGPT) 23, Alkaline Phosphatase 104, Total Protein 5.6L, Albumin 2.3L Assessment/Plan Assessment/Plan Assessment/Plan Aspiration pneumonia-chest x-ray with 5 lobed infiltrates and airspace disease with likely small right pleural effusion. Dysphagia, had gastrostomy tube at pulled out today Anemia Healing antral ulcer, erosive esophagitis Intellectual disability Patient currently n.p.o. Follow hemoglobin and transfusing as needed Protonix Placed a NABEEL tube through opening without difficulty. Will get imaging to confirm proper placement. If not improper placement would need intervention to replace, such as exploratory laparotomy with placement of gastrostomy tube Clinical Quality Measures DVT/VTE Risk/Contraindication: Risk Factor Score Per Nursin RFS Level Per Nursing on Admit: 4+=Very High KARYN MENDOZA DO Nov 17, 2020 13:30
[2020-11-17] MEDS: RT-ALBUTEROL INHALER HFA (VENTOLIN HFA) 18 GM IH SCH ×2 (14:34→22:19)
--- NOTE | 2020-11-17 14:43 | Diagnostic Imaging Report ---
PROCEDURE: CT angiography of the chest with contrast. TECHNIQUE: Multiple contiguous axial images were obtained through the chest after uneventful bolus administration of intravenous contrast. 3D reconstructed CTA MIP acquisitions were also performed. Auto Exposure Controls were utilized during the CT exam to meet ALARA standards for radiation dose reduction. INDICATION: Person under investigation for Covid. Unable to communicate. Rule out pulmonary embolus. EXAMINATION: CTA of the chest with contrast, 11/17/2020. FINDINGS: No central or proximal segmental pulmonary emboli appreciated. Peripheral vessels are somewhat difficult to characterize due to respiratory motion. There are patchy scattered airspace opacities diffusely throughout both lungs especially in the upper lobes, right worse than left, consistent with infiltrates. There is atelectasis versus infiltrate at the right lung base as well. There are bilateral large pleural effusions, right worse than left. There is a moderate-sized hiatal hernia. Adenopathy within the mediastinum is suspected as well as within the right hilum. There is anasarca throughout the soft tissues. Visualized upper abdomen poorly characterized as it is not well opacified. Changes of constipation within the visualized bowel noted. Free air is noted of uncertain etiology. There is a feeding tube present and the free air could be iatrogenic depending on placement, correlate clinically. Otherwise dedicated imaging of the abdomen and pelvis recommended to exclude a visceral perforation. IMPRESSION: 1. No pulmonary embolus appreciated in the central or proximal segmental vessels with the peripheral vessels not well opacified. 2. Bilateral infiltrates. 3. Bilateral large pleural effusions, right worse than left. 4. Free air beneath the diaphragm with a PEG tube present. This could be iatrogenic but clinical correlation with timing of placement recommended to exclude an acute abdominal abnormality. 5. A PEG tube is noted and the balloon appears to be inflated within the lumen of the stomach. Per history contrast was injected through the PEG tube however contrast in the region is not visualized. Findings called to Dr. Yandy Gage by Dr. Bautista 11/17/2020 2:04 p.m. Dictated by: Dictated on workstation # [id number]
--- NOTE | 2020-11-17 15:23 | Pulmonary Consultation ---
History of Present Illness History of Present Illness Date Seen by Provider: Nov 17, 2020 Time Seen by Provider: 15:18 Date of Admission Allergies and Home Medications Allergies Coded Allergies: No Known Drug Allergies (Unverified , 08/08/13) Home Medications Acetaminophen 325 Mg Tablet, 650 MG PO Q6H PRN for PAIN-MILD (1-4), (Reported) TAKES 2 (325MG) TABLETS Calcium Carbonate 500 Mg Tablet, 1,000 MG PO Q4H PRN for HOLMAN, (Reported) Cholecalciferol (Vitamin D3) 50 Mcg Capsule, 50 MCG PO DAILY, (Reported) Diphenhydramine HCl 25 Mg Capsule, 25-50 MG PO Q6H PRN for ALLERGY SYMPTOMS, (Reported) Docusate Sodium 100 Mg Tablet, 100 MG PO BID, (Reported) Guaifenesin/Dextromethorphan 5 Ml Syrup, 10 ML PO Q4H PRN for COUGH, (Reported) Ibuprofen 200 Mg Tablet, 400 MG PO Q6H PRN for PAIN-MILD (1-4), (Reported) Loperamide HCl 2 Mg Capsule, 1-2 MG PO UD PRN for DIARRHEA, (Reported) GIVE 2 TABS AFTER FIRST WATERY STOOL, GIVE AN ADDITIONAL 1 TAB AFTER EACH WATERY STOOL. DO NOT EXCEED 4 DOSES PER 24 HOURS Magnesium Hydroxide 400 Mg/5 Ml Oral.susp, 30 ML PO Q12H PRN for CONSTIPATION- 7TH LINE, (Reported) Melatonin 5 Mg Tablet, 5 MG PO HS, (Reported) Menthol 5 Mg Lozenge, 5 MG MM Q1H PRN for COUGH, (Reported) Multivitamin 1 Each Tablet, 1 EACH PO DAILY, (Reported) Olanzapine 10 Mg Tablet, 10 MG PO HS, (Reported) Ondansetron 8 Mg Tab.rapdis, 16 MG PO TIDAC, (Reported) TAKES 2 (8MG) TABS Ondansetron 4 Mg Tab.rapdis, 4 MG PO Q8H PRN for NAUSEA/VOMITING-1ST LINE, (Reported) Pantoprazole Sodium 40 Mg Tablet.dr, 40 MG PO DAILY, (Reported) Polyethylene Glycol 3350 17 Gm Powd.pack, 17 GM PO DAILY, (Reported) Psyllium Husk 0.52 Gm Capsule, 0.52 GM PO DAILY, (Reported) Tetrahydrozoline HCl 15 Ml Drops, 2 DROP OU Q6H PRN for REDNESS/IRRITATION, (Reported) Past Hydwnoy-Jhwqgf-Mrdowt Hx Past Med/Social Hx: Reviewed Nursing Past Med/Soc Hx Patient Social History Alcohol Use: Denies Use Recreational Drug Use: No Smoking Status: Unknown if Ever Smoked 2nd Hand Smoke Exposure: No Recent Foreign Travel: No Contact w/Someone Who Travel: No Recent Infectious Disease Expo: No Recent Hopitalizations: No Immunizations Up To Date Tetanus Booster (TDap): Unknown PED Vaccines UTD: No Date of Pneumonia Vaccine: Aug 29, 2009 Date of Influenza Vaccine: Sep 29, 2017 Seasonal Allergies Seasonal Allergies: No Past Medical History Surgeries: Yes (CYST FROM CHEEK, PEG TUBE) Respiratory: No Currently Using CPAP: No Currently Using BIPAP: No Cardiac: No Neurological: Yes (MR) Developmental Disorder, Seizure Disorder Reproductive Disorders: No Sexually Transmitted Disease: No HIV/AIDS: No Genitourinary: No Gastrointestinal: Yes Gastroesophageal Reflux, Gastrointestinal Bleed, Chronic Constipation, Esophagitis, Ulcer, Gall Bladder Disease Musculoskeletal: Yes (foot deforminties) Endocrine: No HEENT: No Loss of Vision: Denies Cancer: No Psychosocial: Yes Anxiety Integumentary: No Blood Disorders: No Family Medical History Reviewed Nursing Family Hx Patient reports no known family medical history. No Pertinent Family Hx Sepsis Event Evaluation Height, Weight, BMI Height: 5'6.00" Weight: 139lbs. 0.0oz. 63.976785ps; 134.37 BMI Method:Actual Exam Exam Vital Signs Date Time Temp Pulse Resp B/P (MAP) Pulse Ox O2 Delivery O2 Flow Rate FiO2 11/17/20 11:32 35.2 67 18 118/75 (89) 91 Nasal Cannula 2.00 11/17/20 07:48 35.2 52 16 123/67 (85) 95 Nasal Cannula 2.00 11/17/20 07:00 51 11/17/20 04:00 93 Nasal Cannula 2.00 11/17/20 03:35 36.0 60 16 113/96 (102) 93 Nasal Cannula 2.00 11/17/20 03:16 33.4 61 97 28 11/17/20 01:00 60 11/17/20 00:34 61 11/16/20 23:46 97 Nasal Cannula 2.00 11/16/20 23:39 33.3 61 18 97 Nasal Cannula 2.00 11/16/20 21:00 98 Nasal Cannula 2.50 11/16/20 20:00 98 Nasal Cannula 2.50 11/16/20 20:00 36.0 60 16 128/77 (94) 98 Nasal Cannula 2.50 11/16/20 19:00 61 11/16/20 17:07 73 11/16/20 16:59 36.2 73 18 123/93 97 Nasal Cannula 2.00 11/16/20 16:42 36.0 75 18 119/45 (69) 98 Nasal Cannula 2.00 11/16/20 16:42 36.0 75 18 119/45 98 Nasal Cannula 2.00 11/16/20 16:40 98 Nasal Cannula 2.00 11/16/20 16:40 36.0 76 14 123/71 98 Nasal Cannula 2.00 2.00 11/16/20 15:46 76 14 123/71 98 Nasal Cannula 2.00 I & O 11/17/20 07:00 Intake Total 0 ml Output Total 1050 ml Balance -1050 ml Height & Weight Height: 5'6.00" Weight: 139lbs. 0.0oz. 63.553759md; 134.37 BMI Method:Actual General Appearance: No Apparent Distress, Chronically ill, Thin HEENT: PERRL/EOMI, Moist Mucous Membranes; No Scleral Icterus (L), No Scleral Icterus (R) Neck: Normal Inspection, Supple Respiratory: Chest Non Tender, Lungs Clear, No Accessory Muscle Use, No Respiratory Distress Cardiovascular: Regular Rate, Rhythm, No JVD Capillary Refill: Less Than 3 Seconds Gastrointestinal: non tender, soft, no organomegaly, other (Gastrostomy tube left upper quadrant has been pulled out) Neurologic/Psychiatric: Alert, Oriented x3, Normal Mood/Affect Skin: Normal Color, Warm/Dry Lymphatic: No Adenopathy Results Lab Laboratory Tests 11/16/20 14:05 11/17/20 08:30 Assessment/Plan Assessment/Plan Acute respiratory failure likely due to aspiration pneumonia -Vanc and Merrem as just completed Zosyn -Cultures pending -CT chest reveiwed Pulmonary edema with R> L pleural effusion and elevated BNP -Will give 80mg of Lasix x 1 -Check echocardiogram tomorrow COVID PUI COVID PCR still pending, rapid negative MAT protocol Oxygen Intellectual Disability Dysphagia PEM- moderate Hypoglycemia PEG placed last week -Peg tube became dislodged today and then replaced TF with Jevity 1.5 at 45ml/hr with 125ml Q4 Anemia with Thrombocyotpenia S/p 1 unit pRBCs Surgery following Monitor CHRISTIANO DARLING DO Nov 17, 2020 15:23
[2020-11-17] MEDS ORDERED: FUROSEMIDE 40 MG/4 ML INJ (LASIX) IVP ONE (15:30)
[2020-11-17] MEDS ORDERED: ATROPINE INJECTION 1 MG/10 ML SYR (ABBOTT) ONE (16:34)
[2020-11-17] MEDS: DOCUSATE SODIUM 100 MG (COLACE) CAP PO SCH ×2 (17:17→20:26)
[2020-11-17] MEDS: polyethylene glycoL POWDER 17 GM (MIRALAX) PACK PO SCH (17:17)
[2020-11-17] MEDS: MULTIVITAMINS LIQUID 15 ML UDC PO SCH (17:17)
[2020-11-17] MEDS ORDERED: FUROSEMIDE 40 MG/4 ML INJ (LASIX) ONE (18:44)
[2020-11-17] MEDS ORDERED: NS (IVPB) 250 ML ONE (18:58)
[2020-11-17] MEDS: POTASSIUM CL 10MEQ/50ML IVPB 50 ML IV SCH ×2 (18:58→20:24)
[2020-11-17] MEDS: LORazepam INJ 2 MG/ML (ATIVAN) VIAL IVP PRN (20:33)
[2020-11-17] MEDS: MELATONIN 10 MG TABLET PO SCH (20:38)
[2020-11-17] MEDS: OLANZapine 5 MG (ZyPREXA) TAB PO SCH (20:38)
[2020-11-18] VITALS (13 sets, daily range): BP systolic 85–123; BP diastolic 57–77
[2020-11-18] MEDS: POTASSIUM CL 10MEQ/50ML IVPB 50 ML IV SCH ×7 (00:01→08:53)
[2020-11-18 03:59] LABS: BASOPHILS % (AUTO) 0 % (0-10); HEMATOCRIT 24 % (40-54); MEAN CORPUSCULAR VOLUME 89 fL (80-99)
[2020-11-18 04:01] LABS: EOSINOPHILS % (AUTO) 1 % (0-10); HEMOGLOBIN 7.8 g/dL (13.3-17.7); LYMPHOCYTES # (AUTO) 0.5 10^3/uL (1.0-4.0); LYMPHOCYTES % (AUTO) 12 % (12-44); MEAN CORPUSCULAR HEMOGLOBIN 29 pg (25-34); MEAN CORPUSCULAR HGB CONC 32 g/dL (32-36); MEAN PLATELET VOLUME 12.2 fL (9.0-12.2); MONOCYTES # (AUTO) 0.3 10^3/uL (0.0-1.0); MONOCYTES % (AUTO) 8 % (0-12); NEUTROPHILS # (AUTO) 3.4 10^3/uL (1.8-7.8); NEUTROPHILS % (AUTO) 80 % (42-75); PLATELET COUNT 91 10^3/uL (130-400); WHITE BLOOD COUNT 4.3 10^3/uL (4.3-11.0)
[2020-11-18 04:18] LABS: CHLORIDE 108 MMOL/L (98-107); POTASSIUM 3.9 MMOL/L (3.6-5.0); SODIUM 142 MMOL/L (135-145)
[2020-11-18 04:19] LABS: CALCIUM 8.7 MG/DL (8.5-10.1)
[2020-11-18 04:20] LABS: GLUCOSE 71 MG/DL (70-105)
[2020-11-18 04:22] LABS: CARBON DIOXIDE 22 MMOL/L (21-32)
[2020-11-18 04:24] LABS: CREATININE SERUM 0.77 MG/DL (0.60-1.30); GFR ESTIMATED > 60; PHOSPHORUS 3.3 MG/DL (2.3-4.7)
[2020-11-18 04:25] LABS: BUN/CREATININE RATIO 22
[2020-11-18 04:26] LABS: MAGNESIUM 1.8 MG/DL (1.6-2.4)
[2020-11-18] MEDS ORDERED: FUROSEMIDE 40 MG/4 ML INJ (LASIX) IVP ONE (04:45)
--- NOTE | 2020-11-18 04:47 | Pulmonary Progress Note ---
Subjective Time Seen by a Provider: 04:41 Subjective/Events-last exam Pt transferred to ICU yesterday secondary to [facility] Sepsis Event Evaluation Height, Weight, BMI Height: 5'6.00" Weight: 139lbs. 0.0oz. 63.495762fh; 134.37 BMI Method:Actual Focused Exam Lactate Level 11/16/20 14:05: Lactic Acid Level 1.65 Exam Exam Vital Signs Date Time Temp Pulse Resp B/P (MAP) Pulse Ox O2 Delivery O2 Flow Rate FiO2 11/18/20 04:00 65 39 111/74 (86) Nasal Cannula 4.00 11/18/20 03:00 51 23 114/70 (85) 91 Nasal Cannula 4.00 11/18/20 02:00 44 16 117/75 (89) 98 Nasal Cannula 4.00 11/18/20 01:00 48 25 119/71 (87) 94 Nasal Cannula 4.00 11/18/20 01:00 48 11/18/20 00:00 42 29 118/77 (91) 99 Nasal Cannula 4.00 11/17/20 23:00 41 122/72 (89) 100 Nasal Cannula 4.00 11/17/20 22:19 Nasal Cannula 2.00 11/17/20 22:00 48 17 113/70 (84) 87 Nasal Cannula 4.00 11/17/20 22:00 Nasal Cannula 4.00 11/17/20 21:00 49 20 116/77 (90) 97 Nasal Cannula 2.00 11/17/20 21:00 98 Nasal Cannula 4.00 11/17/20 20:00 50 21 121/94 (103) 94 Nasal Cannula 2.00 11/17/20 19:53 35.0 11/17/20 19:00 47 14 118/80 (93) 94 Nasal Cannula 2.00 11/17/20 19:00 47 11/17/20 18:00 50 15 106/78 (87) 94 Nasal Cannula 2.00 11/17/20 17:00 57 21 123/85 (98) 92 Nasal Cannula 2.00 11/17/20 16:51 57 9 89/42 (58) 88 Nasal Cannula 2.00 11/17/20 16:43 53 14 125/92 (103) 95 Nasal Cannula 2.00 11/17/20 11:32 35.2 67 18 118/75 (89) 91 Nasal Cannula 2.00 11/17/20 07:48 35.2 52 16 123/67 (85) 95 Nasal Cannula 2.00 11/17/20 07:00 51 l I & O 11/18/20 07:00 Intake Total 60 ml Output Total 650 ml Balance -590 ml Height & Weight Height: 5'6.00" Weight: 139lbs. 0.0oz. 63.738258yd; 134.37 BMI Method:Actual General Appearance: No Apparent Distress, Chronically ill, Thin HEENT: PERRL/EOMI, Moist Mucous Membranes; No Scleral Icterus (L), No Scleral Icterus (R) Neck: Normal Inspection, Supple Respiratory: Chest Non Tender, Lungs Clear, No Accessory Muscle Use, No Respiratory Distress Cardiovascular: Regular Rate, Rhythm, No JVD Capillary Refill: Less Than 3 Seconds Gastrointestinal: non tender, soft, no organomegaly, other (Gastrostomy tube left upper quadrant has been pulled out) Neurologic/Psychiatric: Alert, Oriented x3, Normal Mood/Affect Skin: Normal Color, Warm/Dry Lymphatic: No Adenopathy Results Lab Laboratory Tests 11/16/20 14:05 11/17/20 08:30 11/18/20 03:20 Assessment/Plan Assessment/Plan Acute respiratory failure likely due to aspiration pneumonia -Cultures pending -CT chest reveiwed -S/p Abx Pulmonary edema with R> L pleural effusion and elevated BNP -s/p 80mg of Lasix x 1 -will give another 40mg of Lasix -Check echocardiogram tomorrow Sinus bradycardia -Continue to monitor COVID PUI COVID PCR still pending, rapid negative MAT protocol Oxygen Intellectual Disability Dysphagia PEM- moderate Hypoglycemia PEG placed last week -Peg tube became dislodged today and then replaced TF with Jevity 1.5 at 45ml/hr with 125ml Q4 Anemia with Thrombocyotpenia S/p 1 unit pRBCs Surgery following Monitor CHRISTIANO DARLING DO Nov 18, 2020 04:47
[2020-11-18] MEDS: MAGNESIUM 1 GM/100 ML IVPB 100 ML IV SCH (05:21)
[2020-11-18] MEDS: KCL 20 MEQ TAB (K-DUR) PO SCH (05:21)
[2020-11-18] MEDS: RT-ALBUTEROL INHALER HFA (VENTOLIN HFA) 18 GM IH SCH ×2 (07:02→21:14)
--- NOTE | 2020-11-18 07:29 | Progress Note - Surgery ---
HAODONNIE MED STUDENT 11/18/20 0729: Subjective Date Seen by a Provider: Nov 18, 2020 Time Seen by a Provider: 07:00 Subjective/Events-last exam Pt seen and examined. He was resting in bed in NAD. He is noncommunicative with intellectual disability. He is not agitated this morning and there were no issues overnight, per nursing. He does not appear to be in pain or distress Review of Systems unable to obtain, noncommunicative Focused Exam Lactate Level 11/16/20 14:05: Lactic Acid Level 1.65 Objective Exam Vital Signs Date Time Temp Pulse Resp B/P (MAP) Pulse Ox O2 Delivery O2 Flow Rate FiO2 11/18/20 07:03 98 Nasal Cannula 2.00 11/18/20 06:00 49 15 114/74 (87) 98 Nasal Cannula 4.00 11/18/20 05:15 49 17 123/65 (84) 97 Nasal Cannula 4.00 11/18/20 04:00 65 39 111/74 (86) Nasal Cannula 4.00 11/18/20 03:00 51 23 114/70 (85) 91 Nasal Cannula 4.00 11/18/20 02:00 44 16 117/75 (89) 98 Nasal Cannula 4.00 11/18/20 01:00 48 25 119/71 (87) 94 Nasal Cannula 4.00 11/18/20 01:00 48 11/18/20 00:00 42 29 118/77 (91) 99 Nasal Cannula 4.00 11/17/20 23:00 41 122/72 (89) 100 Nasal Cannula 4.00 11/17/20 22:19 Nasal Cannula 2.00 11/17/20 22:00 48 17 113/70 (84) 87 Nasal Cannula 4.00 11/17/20 22:00 Nasal Cannula 4.00 11/17/20 21:00 49 20 116/77 (90) 97 Nasal Cannula 2.00 11/17/20 21:00 98 Nasal Cannula 4.00 11/17/20 20:00 50 21 121/94 (103) 94 Nasal Cannula 2.00 11/17/20 19:53 35.0 11/17/20 19:00 47 14 118/80 (93) 94 Nasal Cannula 2.00 11/17/20 19:00 47 11/17/20 18:00 50 15 106/78 (87) 94 Nasal Cannula 2.00 11/17/20 17:00 57 21 123/85 (98) 92 Nasal Cannula 2.00 11/17/20 16:51 57 9 89/42 (58) 88 Nasal Cannula 2.00 11/17/20 16:43 53 14 125/92 (103) 95 Nasal Cannula 2.00 11/17/20 11:32 35.2 67 18 118/75 (89) 91 Nasal Cannula 2.00 11/17/20 07:48 35.2 52 16 123/67 (85) 95 Nasal Cannula 2.00 I & O 11/18/20 07:00 Intake Total 455 ml Output Total 2650 ml Balance -2195 ml Capillary Refill : Less Than 3 Seconds General Appearance: No Apparent Distress, Chronically ill, Thin HEENT: PERRL/EOMI, Moist Mucous Membranes; No Scleral Icterus (L), No Scleral Icterus (R) Neck: Normal Inspection, Supple Respiratory: Chest Non Tender, No Accessory Muscle Use, No Respiratory Distress, Rhonci (Bilateral) Cardiovascular: Regular Rate, Rhythm, No JVD, No Murmur, Normal Peripheral Pulses Gastrointestinal: non tender, soft, no organomegaly, other (Gastrostomy tube in place to LUQ, being utilized for feeds) Extremity: Pedal Edema (mild edema to B feet) Neurologic/Psychiatric: Alert, Other (intellectual disability, nonverbal) Skin: Normal Color, Warm/Dry Lymphatic: No Adenopathy Results Lab Laboratory Tests 11/17/20 08:30: White Blood Count 4.7, Red Blood Count 2.62L, Hemoglobin 7.7L, Hematocrit 23L, Mean Corpuscular Volume 89, Mean Corpuscular Hemoglobin 29, Mean Corpuscular Hemoglobin Concent 33, Red Cell Distribution Width 17.1H, Platelet Count 70L, Mean Platelet Volume 12.1, Immature Granulocyte % (Auto) 0, Neutrophils (%) (Auto) 79H, Lymphocytes (%) (Auto) 13, Monocytes (%) (Auto) 8, Eosinophils (%) (Auto) 1, Basophils (%) (Auto) 0, Neutrophils # (Auto) 3.7, Lymphocytes # (Auto) 0.6L, Monocytes # (Auto) 0.4, Eosinophils # (Auto) 0.0, Basophils # (Auto) 0.0, Immature Granulocyte # (Auto) 0.0, Sodium Level 140, Potassium Level 4.0, Chloride Level 111H, Carbon Dioxide Level 23, Anion Gap 6, Blood Urea Nitrogen 16, Creatinine 0.79, Estimat Glomerular Filtration Rate > 60, BUN/Creatinine Ratio 20, Glucose Level 72, Calcium Level 8.4L, Corrected Calcium 9.8, Total Bilirubin 0.5, Aspartate Amino Transf (AST/SGOT) 29, Alanine Aminotransferase (ALT/SGPT) 23, Alkaline Phosphatase 104, Total Protein 5.6L, Albumin 2.3L 11/17/20 16:56: Glucometer 74 11/18/20 03:20: White Blood Count 4.3, Red Blood Count 2.73L, Hemoglobin 7.8L, Hematocrit 24L, Mean Corpuscular Volume 89, Mean Corpuscular Hemoglobin 29, Mean Corpuscular Hemoglobin Concent 32, Red Cell Distribution Width 17.2H, Platelet Count 91L, Mean Platelet Volume 12.2, Immature Granulocyte % (Auto) 1, Neutrophils (%) (Auto) 80H, Lymphocytes (%) (Auto) 12, Monocytes (%) (Auto) 8, Eosinophils (%) (Auto) 1, Basophils (%) (Auto) 0, Neutrophils # (Auto) 3.4, Lymphocytes # (Auto) 0.5L, Monocytes # (Auto) 0.3, Eosinophils # (Auto) 0.0, Basophils # (Auto) 0.0, Immature Granulocyte # (Auto) 0.0, Sodium Level 142, Potassium Level 3.9, Chloride Level 108H, Carbon Dioxide Level 22, Anion Gap 12, Blood Urea Nitrogen 17, Creatinine 0.77, Estimat Glomerular Filtration Rate > 60, BUN/Creatinine Ratio 22, Glucose Level 71, Calcium Level 8.7, Phosphorus Level 3.3, Magnesium Level 1.8, Procalcitonin 0.28H Assessment/Plan Assessment/Plan Assessment/Plan Aspiration pneumonia-chest x-ray with 5 lobed infiltrates and airspace disease with likely small right pleural effusion. Dysphagia - gastrostomy tube was pulled out by pt yesterday, replaced yesterday Anemia - Hgb 7.8 Bradycardia Healing antral ulcer, erosive esophagitis Intellectual disability Patient currently n.p.o., receiving feeds through gastrostomy tube Follow hemoglobin and transfusing as needed Continue Protonix NABEEL tube replaced yesterday with no difficulty after pt pulled it out, placement confirmed by CTA Continue to monitor labs, VS, agitation Clinical Quality Measures DVT/VTE Risk/Contraindication: Risk Factor Score Per Nursin RFS Level Per Nursing on Admit: 4+=Very High KARYN SMITH DO 11/18/20 1501: Subjective Subjective/Events-last exam Laying in bed. No acute distress. Nonverbal. Hgb stable. Chest x ray small amount of free air. Gastrostomy tube functioning. Was replaced and CTA demonstrated in stomach. Objective Exam General Appearance: No Apparent Distress, Chronically ill HEENT: PERRL/EOMI, Moist Mucous Membranes Neck: Normal Inspection, Supple Respiratory: Chest Non Tender, No Accessory Muscle Use, No Respiratory Distress Cardiovascular: Bradycardia Gastrointestinal: non tender, soft, no organomegaly, other (Gastrostomy tube in place to LUQ, being utilized for feeds) Extremity: Pedal Edema (mild edema to B feet) Neurologic/Psychiatric: Alert; No Oriented x3; Other (intellectual disability, nonverbal) Skin: Warm/Dry, Pallor Lymphatic: No Adenopathy Assessment/Plan Assessment/Plan Assessment/Plan Aspiration pneumonia-chest x-ray with 5 lobed infiltrates and airspace disease with likely small right pleural effusion. Dysphagia - gastrostomy tube was pulled out by pt yesterday, replaced yesterday Anemia - Hgb 7.8 Bradycardia Healing antral ulcer, erosive esophagitis Intellectual disability Patient currently n.p.o., receiving feeds through gastrostomy tube Follow hemoglobin and transfusing as needed Continue Protonix NABEEL tube replaced yesterday with no difficulty after pt pulled it out, placement confirmed by CTA Continue to monitor labs, VS, agitation Supervisory-Addendum Brief Verification & Attestation Participated in pt care: history, MDM, physical Personally performed: exam, history, MDM, supervision of care Care discussed with: Medical Student Procedures: n/a Results interpretation: Verified all documentation Verification and Attestation of Medical Student E/M Service A medical student performed and documented this service in my presence. I reviewed and verified all information documented by the medical student and made modifications to such information, when appropriate. I personally performed the physical exam and medical decision making. Karyn Smith, Nov 18, 2020,15:01 DONNIE BUI MED STUDENT Nov 18, 2020 07:29 KARYN SMITH DO Nov 18, 2020 15:01
[2020-11-18] MEDS ORDERED: NS IV 1000 ML 1,000 ML ONE (07:40)
--- NOTE | 2020-11-18 08:17 | Diagnostic Imaging Report ---
EXAMINATION: Chest 1 view HISTORY: GI bleed. Hypoxia. Followup. COMPARISON: 11/17/2020, 11/16/2020. FINDINGS: Diffuse opacities are again seen throughout both lungs, right greater than left. Bilateral layering pleural effusions are again noted, right greater than left. Small amount of free air is seen under the left hemidiaphragm. No evidence of pneumothorax. The cardiac silhouette is stable. No acute osseous abnormalities. IMPRESSION: 1. Relatively unchanged diffuse opacities throughout the lungs with bilateral layering pleural effusions. 2. Small amount of free air under the left hemidiaphragm. Dictated by: Dictated on workstation # [id number]
[2020-11-18] MEDS: DOCUSATE SODIUM 100 MG (COLACE) CAP PO SCH ×2 (08:40→20:11)
[2020-11-18] MEDS: polyethylene glycoL POWDER 17 GM (MIRALAX) PACK PO SCH (08:41)
[2020-11-18] MEDS: PANTOPRAZOLE 40 MG (PROTONIX) VIAL IV SCH (08:47)
[2020-11-18] MEDS: MULTIVITAMINS LIQUID 15 ML UDC PO SCH (08:47)
--- NOTE | 2020-11-18 12:43 | Progress Note - Hospitalist ---
Subjective HPI/CC On Admission Date Seen by Provider: Nov 18, 2020 Time Seen by Provider: 09:00 Pt is a 65yoCM with a PMH of ID who lives at [facility] who presented to the ER due to hypoxia. He was just discharged from the hospital yesterday after being admitted for aspiration pneumonia and PEG tube placement. He completed a week lo ng course of IV abx prior to discharge. He was doing well off oxygen. Today he developed some shortness of breath and hypoxia prompting evaluation in the ER. He was mildly hypoxic at 87& and placed on 2-3lpm NC and was up to 95%. He is unable to provide me any history due to baseline mentation. Subjective/Events-last exam He is unresponsive and unable to provide any history. Focused Exam Lactate Level 11/16/20 14:05: Lactic Acid Level 1.65 Objective Exam Vital Signs Vital Signs Date Time Temp Pulse Resp B/P (MAP) Pulse Ox O2 Delivery O2 Flow Rate FiO2 11/18/20 12:24 48 11/18/20 11:50 35.8 14 100/67 (78) 97 Nasal Cannula 11/18/20 11:23 2.00 11/17/20 03:16 28 Capillary Refill : Less Than 3 Seconds General Appearance: Chronically ill, Cachetic Respiratory: No Respiratory Distress, Other (coarse breath sounds bilaterally) Cardiovascular: Regular Rate, Rhythm, No Edema, No Murmur Gastrointestinal: Normal Bowel Sounds, Soft Extremity: Normal Inspection, No Pedal Edema Neurologic/Psychiatric: Other (unresponsive) Skin: Warm/Dry, Pallor Results/Procedures Lab Laboratory Tests 11/18/20 03:20 Patient resulted labs reviewed. Imaging: Reviewed Imaging Report Assessment/Plan Assessment and Plan Assess & Plan/Chief Complaint Acute respiratory failure likely due to aspiration pneumonia Continue Vanc and Merrem Blood cultures with coag negative staph COVID GIULIANA and PCR negative MAT protocol Maintain sats >90 Pulm consulted, appreciate recs CT without evidence of PE, bilateral infiltrates NPO PEG tube feeding Intellectual Disability Dysphagia Malnutrition PEG tube malfunction Poor prognosis PEG placed last week, dislodged by patient, replaced by surgery Continue tube feeds and free water NPO Speech therapy consult- will likely need barium swallow Palliative care consult Anemia Thrombocyotpenia Hgb stable after 1 unit pRBCs Surgery consulted, appreciate recs Platelets increasing, 91 DVT ppx: SCDs due to anemia and thrombocytopenia Hypoglycemia, resolved Diagnosis/Problems Diagnosis/Problems (1) Aspiration pneumonia Status: Acute (2) Intellectual disability Status: Chronic (3) Pancytopenia Status: Acute Clinical Quality Measures DVT/VTE Risk/Contraindication: Risk Factor Score Per Nursin RFS Level Per Nursing on Admit: 4+=Very High ELYSSA ANTUNEZ MD Nov 18, 2020 12:43
--- NOTE | 2020-11-18 14:32 | ST Dysphagia Evaluation ---
Speech Evaluation-General Medical Diagnosis Pneumonia Onset Date: Nov 18, 2020 Therapy Diagnosis Therapy Diagnosis: Oropharyngeal Dysphagia Precautions Precautions: Aspiration Referral Referring Physician: Dr. Gage Medical History Pertinent Medical History: GERD Social History Home: Speech PLF/Current-Dysphagia Prior Level of Function Patient resides in a long-term due to decreased mentation. Subjective Patient was cooperative with the Bedside Dysphagia Evaluation. Cognitive Status Patient Orientation: Person, Unable to Assess Oral Motor Skills Dentition: Edentalous Patient is NPO, however he does have a PEG tube for nutrition/hydration. Other Contributing Factors: PEG Tube Face Facial Symmetry: Symmetrical Oral-Facial Assessment Oral-Facial Dentition: Normal Labial Seal Description: Weak Lingual Protrusion: Abnormal Lingual ROM: Abnormal Lingual Strength: Abnormal Pharynx Velopharyngeal Move.: Absent Volitional Dry Swallow: Yes Dysphagia Evaluation Attempted thin, however the liquid ran back out of his mouth Unable to swallow 1/2 tsp of thin liquid trial Pharyngeal Phase: Abs Laryngeal Elevation Dietary Recommendations: NPO Liquid Recommendations: NPO Dysphagia Evaluation Summary Patient was readmitted due to pneumonia. He was discharged from the hospital last week following admit for aspiration pneumonia. During that admission he had a PEG tube place for intake. He was on puree and thin liquids for oral intake. Due to his decreased alert level and history of repeated pneumonia, recommendation is for NPO with all intake via PEG tube. This was relayed to his nurse. Speech-Plan Patient/Family Goals Patient/Family Goals: Patient will return to the long-term upon discharge. Treatment Plan Speech Therapy Treatment Plan: Discontinue ST Treatment Duration: Nov 18, 2020 Frequency: 1 time per week Estimated Hrs Per Day: .25 hour per day Rehab Potential: Guarded Barriers to Learning: Patient's decreased intellectual ability Pt/Family Agrees to Plan: Yes Safety Risks/Education Teaching Recipient: Patient Teaching Methods: Discussion Response to Teaching: Reinforcement Needed Education Topics Provided: Diet level, Dysphagia Time Speech Therapy Time In: 10:00 Speech Therapy Time Out: 10:20 Total Billed Time: 20 Billed Treatment Time PRESTON [facility]ILLAL[facility] [address] ST Nov 18, 2020 14:32
[2020-11-18] MEDS: AMPICILLIN/SULBACTAM INJECTION 1.5 GM in NS (IVPB) 100 ML IV SCH (16:01)
[2020-11-18] MEDS: MELATONIN 10 MG TABLET PO SCH (20:11)
[2020-11-18] MEDS: OLANZapine 5 MG (ZyPREXA) TAB PO SCH (20:11)
[2020-11-19] VITALS (15 sets, daily range): BP systolic 71–132; BP diastolic 45–78
[2020-11-19] MEDS: AMPICILLIN/SULBACTAM INJECTION 1.5 GM in NS (IVPB) 100 ML IV SCH ×4 (00:59→23:21)
[2020-11-19 03:38] LABS: BASOPHILS % (AUTO) 0 % (0-10); HEMOGLOBIN 7.3 g/dL (13.3-17.7); MONOCYTES # (AUTO) 0.4 10^3/uL (0.0-1.0)
[2020-11-19 03:40] LABS: EOSINOPHILS # (AUTO) 0.1 10^3/uL (0.0-0.3); EOSINOPHILS % (AUTO) 1 % (0-10); HEMATOCRIT 22 % (40-54); LYMPHOCYTES # (AUTO) 0.6 10^3/uL (1.0-4.0); LYMPHOCYTES % (AUTO) 18 % (12-44); MEAN CORPUSCULAR HEMOGLOBIN 29 pg (25-34); MEAN CORPUSCULAR HGB CONC 33 g/dL (32-36); MEAN CORPUSCULAR VOLUME 88 fL (80-99); MEAN PLATELET VOLUME 11.7 fL (9.0-12.2); MONOCYTES % (AUTO) 11 % (0-12); NEUTROPHILS # (AUTO) 2.4 10^3/uL (1.8-7.8); NEUTROPHILS % (AUTO) 69 % (42-75); PLATELET COUNT 119 10^3/uL (130-400); WHITE BLOOD COUNT 3.5 10^3/uL (4.3-11.0)
[2020-11-19 03:58] LABS: CHLORIDE 105 MMOL/L (98-107); POTASSIUM 3.6 MMOL/L (3.6-5.0); SODIUM 141 MMOL/L (135-145)
[2020-11-19 03:59] LABS: CALCIUM 8.3 MG/DL (8.5-10.1); GLUCOSE 77 MG/DL (70-105)
[2020-11-19 04:01] LABS: CARBON DIOXIDE 26 MMOL/L (21-32)
[2020-11-19 04:03] LABS: CREATININE SERUM 0.76 MG/DL (0.60-1.30); GFR ESTIMATED > 60; PHOSPHORUS 3.3 MG/DL (2.3-4.7)
[2020-11-19 04:04] LABS: BUN/CREATININE RATIO 22
[2020-11-19 04:05] LABS: MAGNESIUM 1.9 MG/DL (1.6-2.4)
--- NOTE | 2020-11-19 06:21 | Pulmonary Progress Note ---
Subjective Time Seen by a Provider: 06:19 Sepsis Event Evaluation Height, Weight, BMI Height: 5'6.00" Weight: 139lbs. 0.0oz. 63.267977gj; 134.37 BMI Method:Actual Focused Exam Lactate Level 11/16/20 14:05: Lactic Acid Level 1.65 Exam Exam Vital Signs Date Time Temp Pulse Resp B/P (MAP) Pulse Ox O2 Delivery O2 Flow Rate FiO2 11/19/20 04:06 35.4 60 18 93/67 (76) 97 Nasal Cannula 2.00 11/19/20 01:00 51 11/19/20 00:04 35.4 55 15 103/51 (68) 99 Nasal Cannula 2.00 11/18/20 21:14 96 Nasal Cannula 2.00 11/18/20 20:58 95 Nasal Cannula 2.00 11/18/20 19:10 35.7 53 18 101/74 (83) 97 Nasal Cannula 2.00 11/18/20 19:01 54 11/18/20 16:20 100/58 (72) 11/18/20 15:33 35.6 54 19 85/57 (66) 94 Nasal Cannula 2.00 11/18/20 12:53 48 11/18/20 12:24 48 11/18/20 11:50 35.8 49 14 100/67 (78) 97 Nasal Cannula 11/18/20 11:23 35.2 54 16 92/64 (73) 92 Nasal Cannula 2.00 11/18/20 09:52 100 Nasal Cannula 2.00 11/18/20 07:46 35.4 54 15 107/71 (83) 100 Nasal Cannula 4.00 11/18/20 07:03 98 Nasal Cannula 2.00 11/18/20 07:00 76 I & O 11/19/20 07:00 Intake Total 860 ml Output Total 2475 ml Balance -1615 ml Height & Weight Height: 5'6.00" Weight: 139lbs. 0.0oz. 63.144473fm; 134.37 BMI Method:Actual General Appearance: No Apparent Distress, Chronically ill HEENT: PERRL/EOMI, Moist Mucous Membranes Neck: Normal Inspection, Supple Respiratory: Chest Non Tender, No Accessory Muscle Use, No Respiratory Distress Cardiovascular: Bradycardia Capillary Refill: Less Than 3 Seconds Gastrointestinal: non tender, soft, no organomegaly, other (Gastrostomy tube in place to LUQ, being utilized for feeds) Extremity: Pedal Edema (mild edema to B feet) Neurologic/Psychiatric: Alert; No Oriented x3; Other (intellectual disability, nonverbal) Skin: Warm/Dry, Pallor Lymphatic: No Adenopathy Results Lab Laboratory Tests 11/17/20 08:30 11/18/20 03:20 11/19/20 03:29 Assessment/Plan Assessment/Plan Acute respiratory failure likely due to aspiration pneumonia -Cultures pending -CT chest reveiwed -S/p Abx Pulmonary edema with R> L pleural effusion and elevated BNP echocardiogram tomorrow Sinus bradycardia -Continue to monitor COVID PUI COVID PCR still pending, rapid negative MAT protocol Oxygen Intellectual Disability Dysphagia PEM- moderate Hypoglycemia PEG placed last week -Peg tube became dislodged today and then replaced TF with Jevity 1.5 at 45ml/hr with 125ml Q4 Anemia with Thrombocyotpenia S/p 1 unit pRBCs Surgery following Monitor CHRISTIANO DARLING DO Nov 19, 2020 06:21
[2020-11-19] MEDS: POTASSIUM CL 10MEQ/50ML IVPB 50 ML IV SCH (06:44)
[2020-11-19] MEDS: MAGNESIUM 1 GM/100 ML IVPB 100 ML IV SCH (06:44)
[2020-11-19] MEDS: KCL 20 MEQ TAB (K-DUR) PO SCH (06:44)
--- NOTE | 2020-11-19 07:08 | Progress Note - Surgery ---
DONNIE BUI MED STUDENT 11/19/20 0708: Subjective Date Seen by a Provider: Nov 19, 2020 Time Seen by a Provider: 06:50 Subjective/Events-last exam Pt seen and examined. Pt was awake, in NAD. He had blood around his L arm and partially soaking his abd binder; upon inspection, PEG tube was intact and a disconnected IV was found to be the source of bleeding. He is noncommunicative r/t intellectual disability. Review of Systems unable to obtain, noncommunicative Focused Exam Lactate Level 11/16/20 14:05: Lactic Acid Level 1.65 Objective Exam Vital Signs Date Time Temp Pulse Resp B/P (MAP) Pulse Ox O2 Delivery O2 Flow Rate FiO2 11/19/20 04:06 35.4 60 18 93/67 (76) 97 Nasal Cannula 2.00 11/19/20 01:00 51 11/19/20 00:04 35.4 55 15 103/51 (68) 99 Nasal Cannula 2.00 11/18/20 21:14 96 Nasal Cannula 2.00 11/18/20 20:58 95 Nasal Cannula 2.00 11/18/20 19:10 35.7 53 18 101/74 (83) 97 Nasal Cannula 2.00 11/18/20 19:01 54 11/18/20 16:20 100/58 (72) 11/18/20 15:33 35.6 54 19 85/57 (66) 94 Nasal Cannula 2.00 11/18/20 12:53 48 11/18/20 12:24 48 11/18/20 11:50 35.8 49 14 100/67 (78) 97 Nasal Cannula 11/18/20 11:23 35.2 54 16 92/64 (73) 92 Nasal Cannula 2.00 11/18/20 09:52 100 Nasal Cannula 2.00 11/18/20 07:46 35.4 54 15 107/71 (83) 100 Nasal Cannula 4.00 I & O 11/19/20 06:59 Intake Total 1470 ml Output Total 2925 ml Balance -1455 ml Capillary Refill : Less Than 3 Seconds General Appearance: No Apparent Distress, Chronically ill, Thin HEENT: PERRL/EOMI Neck: Normal Inspection, Non Tender, Supple Respiratory: Chest Non Tender, No Accessory Muscle Use, No Respiratory Distress Cardiovascular: Regular Rate, Rhythm, No JVD, Bradycardia, Other (mild swelling B feet) Gastrointestinal: non tender, soft, no organomegaly, other (Gastrostomy tube in place to LUQ, being utilized for feeds) Extremity: Pedal Edema (mild edema to B feet) Neurologic/Psychiatric: Alert; No Oriented x3; Other (intellectual disability, nonverbal) Skin: Warm/Dry, Pallor Lymphatic: No Adenopathy Results Lab Laboratory Tests 11/19/20 03:29: White Blood Count 3.5L, Red Blood Count 2.50L, Hemoglobin 7.3L, Hematocrit 22L, Mean Corpuscular Volume 88, Mean Corpuscular Hemoglobin 29, Mean Corpuscular Hemoglobin Concent 33, Red Cell Distribution Width 17.1H, Platelet Count 119L, Mean Platelet Volume 11.7, Immature Granulocyte % (Auto) 1, Neutrophils (%) (Auto) 69, Lymphocytes (%) (Auto) 18, Monocytes (%) (Auto) 11, Eosinophils (%) (Auto) 1, Basophils (%) (Auto) 0, Neutrophils # (Auto) 2.4, Lymphocytes # (Auto) 0.6L, Monocytes # (Auto) 0.4, Eosinophils # (Auto) 0.1, Basophils # (Auto) 0.0, Immature Granulocyte # (Auto) 0.0, Sodium Level 141, Potassium Level 3.6, Chloride Level 105, Carbon Dioxide Level 26, Anion Gap 10, Blood Urea Nitrogen 17, Creatinine 0.76, Estimat Glomerular Filtration Rate > 60, BUN/Creatinine Ratio 22, Glucose Level 77, Calcium Level 8.3L, Phosphorus Level 3.3, Magnesium Level 1.9 11/19/20 05:19: Glucometer 79 Microbiology 11/16/20 Blood Culture - Preliminary, Resulted Staphylococcus epidermidis Assessment/Plan Assessment/Plan Assessment/Plan Aspiration pneumonia - chest x-ray with 5 lobed infiltrates and airspace disease with likely small right pleural effusion. Dysphagia - gastrostomy tube was pulled out by pt 2 days ago, replaced 2 days ago Anemia - Hgb 7.3 Bradycardia Healing antral ulcer, erosive esophagitis Intellectual disability Patient currently NPO, receiving feeds through gastrostomy tube Follow hemoglobin and transfusing as needed Continue Protonix Continue to monitor labs, VS, agitation Clinical Quality Measures DVT/VTE Risk/Contraindication: Risk Factor Score Per Nursin RFS Level Per Nursing on Admit: 4+=Very High KARYN SMITH DO 11/19/20 2157: Subjective Subjective/Events-last exam Patient is alert. Nonverbal. Patient bradycardic and hypotensive. Objective Exam General Appearance: No Apparent Distress, Chronically ill, Thin Neck: Normal Inspection, Non Tender Respiratory: Chest Non Tender, No Accessory Muscle Use, No Respiratory Distress Cardiovascular: No JVD, Bradycardia, Other (mild swelling B feet) Gastrointestinal: non tender, soft, other (Gastrostomy tube in place to LUQ, sutured in place) Extremity: Pedal Edema (mild edema to B feet) Neurologic/Psychiatric: Alert; No Oriented x3 Skin: Warm/Dry Lymphatic: No Adenopathy Assessment/Plan Assessment/Plan Assessment/Plan Aspiration pneumonia - chest x-ray with 5 lobed infiltrates and airspace disease withpleural effusion. Dysphagia - gastrostomy tube was pulled out by pt 2 days ago, replaced 2 days ago Anemia - Hgb 7.3 Bradycardia Healing antral ulcer, erosive esophagitis Intellectual disability Bradycardia Hypotension Patient currently NPO, receiving feeds through gastrostomy tube Follow hemoglobin and transfusing as needed Continue Protonix Continue to monitor labs, VS, agitation Central line to be placed Supervisory-Addendum Brief Verification & Attestation Participated in pt care: history, MDM, physical Personally performed: exam, history, MDM, supervision of care Care discussed with: Medical Student Procedures: n/a Results interpretation: Verified all documentation Verification and Attestation of Medical Student E/M Service A medical student performed and documented this service in my presence. I reviewed and verified all information documented by the medical student and made modifications to such information, when appropriate. I personally performed the physical exam and medical decision making. Karyn Smith, Nov 19, 2020,21:57 DONNIE BUI MED STUDENT Nov 19, 2020 07:08 KARYN SMITH DO Nov 19, 2020 21:57
[2020-11-19] MEDS: MULTIVITAMINS LIQUID 15 ML UDC PO SCH (08:24)
[2020-11-19] MEDS: DOCUSATE SODIUM 100 MG (COLACE) CAP PO SCH ×2 (08:25→21:00)
[2020-11-19] MEDS: polyethylene glycoL POWDER 17 GM (MIRALAX) PACK PO SCH (08:25)
[2020-11-19] MEDS: PANTOPRAZOLE 40 MG (PROTONIX) VIAL IV SCH (08:25)
[2020-11-19] MEDS: RT-ALBUTEROL INHALER HFA (VENTOLIN HFA) 18 GM IH SCH ×2 (09:49→21:22)
[2020-11-19] MEDS ORDERED: NS IV 1000 ML 1,000 ML ONE (10:25)
[2020-11-19] MEDS ORDERED: NS IV 1000 ML 1,000 ML IV ONE (10:45)
[2020-11-19] MEDS ORDERED: VANCOMYCIN INJECTION 0.1 MG in NS (IVPB) 250 ML IV SCH (11:15)
[2020-11-19] MEDS ORDERED: VANCOMYCIN 1 GM/NS 250 ML IVPB IV NR ×2 (12:00)
[2020-11-19] MEDS ORDERED: NOREPINEPHRINE 4 MG/250 ML 250 ML IV ONE (12:01)
[2020-11-19 12:09] LABS: HEMOGLOBIN 7.1 g/dL (13.3-17.7); MEAN CORPUSCULAR VOLUME 89 fL (80-99)
[2020-11-19] MEDS: NOREPINEPHRINE 4 MG/250 ML 250 ML IV SCH (12:09)
[2020-11-19 12:11] LABS: BASOPHILS % (AUTO) 0 % (0-10); EOSINOPHILS % (AUTO) 1 % (0-10); HEMATOCRIT 22 % (40-54); LYMPHOCYTES # (AUTO) 0.3 10^3/uL (1.0-4.0); LYMPHOCYTES % (AUTO) 13 % (12-44); MEAN CORPUSCULAR HEMOGLOBIN 29 pg (25-34); MEAN CORPUSCULAR HGB CONC 33 g/dL (32-36); MEAN PLATELET VOLUME 11.3 fL (9.0-12.2); MONOCYTES # (AUTO) 0.2 10^3/uL (0.0-1.0); MONOCYTES % (AUTO) 8 % (0-12); NEUTROPHILS % (AUTO) 78 % (42-75); PLATELET COUNT 122 10^3/uL (130-400); WHITE BLOOD COUNT 2.5 10^3/uL (4.3-11.0)
[2020-11-19] MEDS: NS IV 1000 ML 1,000 ML IV SCH ×2 (12:15→20:45)
[2020-11-19] MEDS ORDERED: ATROPINE INJECTION 1 MG/10 ML SYR (ABBOTT) ONE ×2 (12:17→14:26)
--- NOTE | 2020-11-19 13:18 | Diagnostic Imaging Report ---
INDICATION: Central line placement. COMPARISON: 11/18/2020 FINDINGS: Single frontal radiographic view of the chest was obtained and demonstrates interval placement of right internal jugular central venous catheter, tip which terminates in the low SVC. Lungs continue to show diffuse infiltrates, although there is slight improved aeration compared to prior exam. There is no pneumothorax. Bibasilar effusions are also suspected. Cardiac silhouette is within normal limits. IMPRESSION: 1. New right internal jugular central venous catheter with tip in the low SVC. 2. Persistent, but improved bilateral diffuse infiltrates. 3. Bibasilar effusions. Dictated by: Dictated on workstation # [id number]
--- NOTE | 2020-11-19 17:02 | Progress Note - Hospitalist ---
Subjective HPI/CC On Admission Date Seen by Provider: Nov 19, 2020 Time Seen by Provider: 09:40 Pt is a 65yoCM with a PMH of ID who lives at [facility] who presented to the ER due to hypoxia. He was just discharged from the hospital yesterday after being admitted for aspiration pneumonia and PEG tube placement. He completed a week lo ng course of IV abx prior to discharge. He was doing well off oxygen. Today he developed some shortness of breath and hypoxia prompting evaluation in the ER. He was mildly hypoxic at 87& and placed on 2-3lpm NC and was up to 95%. He is unable to provide me any history due to baseline mentation. Subjective/Events-last exam He is unresponsive. Focused Exam Lactate Level 11/19/20 12:00: Lactic Acid Level 0.59 Objective Exam Vital Signs Vital Signs Date Time Temp Pulse Resp B/P (MAP) Pulse Ox O2 Delivery O2 Flow Rate FiO2 11/19/20 16:00 52 11 120/75 (90) 98 Room Air 11/19/20 16:00 35.8 11/19/20 15:00 2.00 11/17/20 03:16 28 Capillary Refill : Less Than 3 Seconds General Appearance: No Apparent Distress, Chronically ill, Cachetic HEENT: PERRL/EOMI, Other (dry mucous membranes) Respiratory: Lungs Clear, Normal Breath Sounds, No Respiratory Distress Cardiovascular: No Edema, No Murmur, Bradycardia Gastrointestinal: Normal Bowel Sounds, Soft Extremity: Normal Inspection, No Pedal Edema Neurologic/Psychiatric: Other (unresponsive) Skin: Normal Color, Warm/Dry Results/Procedures Lab Laboratory Tests 11/19/20 03:29 11/19/20 12:00 Patient resulted labs reviewed. Imaging: Reviewed Imaging Report Assessment/Plan Assessment and Plan Assess & Plan/Chief Complaint Acute respiratory failure likely due to aspiration pneumonia MRSE bacteremia Hypotension Bradycardia Transitioned to Unasyn yesterday Blood cultures positive for Staph epidermidis, MRSE Started Vancomycin today Transferred to ICU due to hypotension Repeat blood cultures drawn Central line placed by surgery, appreciate assistance Started on Levophed Required Atropine due to bradycardia Intellectual Disability Dysphagia Malnutrition PEG tube malfunction Poor prognosis PEG placed last week, dislodged by patient, replaced by surgery Continue tube feeds and free water NPO Speech therapy consult- will likely need barium swallow Palliative care consulted, appreciate assistance Anemia Thrombocyotpenia s/p 1 unit pRBC Hgb trending down again, 7.3 Platelets increasing, 119 DVT ppx: Lovenox Hypoglycemia, resolved Diagnosis/Problems Diagnosis/Problems (1) Hypotension Status: Acute (2) Bacteremia due to methicillin resistant Staphylococcus epidermidis Status: Acute (3) Aspiration pneumonia Status: Acute (4) Intellectual disability Status: Chronic (5) Pancytopenia Status: Acute (6) Bradycardia with 31-40 beats per minute Clinical Quality Measures DVT/VTE Risk/Contraindication: Risk Factor Score Per Nursin RFS Level Per Nursing on Admit: 4+=Very High ELYSSA ANTUNEZ MD Nov 19, 2020 17:02
[2020-11-19] MEDS: ENOXAPARIN 30 MG/0.3 ML (LOVENOX) SYR SC SCH (17:29)
--- NOTE | 2020-11-19 20:31 | OPERATIVE REPORT ---
DATE OF SERVICE: 11/19/2020 PREOPERATIVE DIAGNOSES: Bradycardia and hypotension, needing emergent central line. POSTOPERATIVE DIAGNOSES: Bradycardia and hypotension, needing emergent central line. PROCEDURE: Ultrasound-guided right internal jugular vein central line placement. SURGEON: Karyn Smith DO ANESTHESIA: 2 mL of 1% lidocaine. ESTIMATED BLOOD LOSS: Minimal. COMPLICATIONS: None. INDICATIONS: The patient is a 65-year-old male who is hypotensive and bradycardic needing a central line for better access. Central line placed emergently. DESCRIPTION OF PROCEDURE: The patient was prepped and draped in sterile fashion. Ultrasound was used to isolate the right internal jugular vein. Local anesthetic was infiltrated just above it. The right internal jugular vein was then accessed under ultrasound guidance. Dark nonpulsatile blood was withdrawn. The guidewire was inserted through the needle and the needle was removed. A #11 blade scalpel was used to make a small stab incision at the insertion site. Dilator was then advanced over the wire and removed. The triple lumen catheter was advanced over the wire and the wire was removed. All ports flushed and accessed without difficulty. The catheter was secured in the usual fashion. The area was then washed and dried and sterile bandage was applied. The patient tolerated procedure well without any complications. Chest x-ray pending. Job ID: [id number] DocumentID: [id number] Dictated Date: 11/19/2020 16:18:32 Leisure Studies Professor Date: 11/19/2020 20:30:55 Dictated By: KARYN SMITH DO [facility]
[2020-11-19] MEDS: OLANZapine 5 MG (ZyPREXA) TAB PO SCH (20:46)
[2020-11-19] MEDS: MELATONIN 10 MG TABLET PO SCH (21:10)
[2020-11-20] VITALS (65 sets, daily range): BP systolic 73–121; BP diastolic 38–106
[2020-11-20 01:59] LABS: BASOPHILS % (AUTO) 0 % (0-10); EOSINOPHILS % (AUTO) 2 % (0-10); HEMATOCRIT 21 % (40-54); LYMPHOCYTES # (AUTO) 0.4 10^3/uL (1.0-4.0); LYMPHOCYTES % (AUTO) 18 % (12-44); MEAN CORPUSCULAR HEMOGLOBIN 30 pg (25-34); MEAN CORPUSCULAR HGB CONC 33 g/dL (32-36); MEAN CORPUSCULAR VOLUME 90 fL (80-99); MEAN PLATELET VOLUME 10.7 fL (9.0-12.2); MONOCYTES # (AUTO) 0.2 10^3/uL (0.0-1.0); MONOCYTES % (AUTO) 7 % (0-12); NEUTROPHILS # (AUTO) 1.8 10^3/uL (1.8-7.8); NEUTROPHILS % (AUTO) 73 % (42-75); PLATELET COUNT 98 10^3/uL (130-400); WHITE BLOOD COUNT 2.5 10^3/uL (4.3-11.0)
[2020-11-20 02:02] LABS: HEMOGLOBIN 6.8 g/dL (13.3-17.7)
[2020-11-20 02:08] LABS: CHLORIDE 111 MMOL/L (98-107); POTASSIUM 3.3 MMOL/L (3.6-5.0); SODIUM 144 MMOL/L (135-145)
[2020-11-20 02:09] LABS: CALCIUM 7.8 MG/DL (8.5-10.1); GLUCOSE 70 MG/DL (70-105)
[2020-11-20 02:11] LABS: CARBON DIOXIDE 25 MMOL/L (21-32)
[2020-11-20 02:13] LABS: CREATININE SERUM 0.63 MG/DL (0.60-1.30); GFR ESTIMATED > 60; PHOSPHORUS 2.7 MG/DL (2.3-4.7)
[2020-11-20 02:14] LABS: BUN/CREATININE RATIO 21
[2020-11-20 02:16] LABS: MAGNESIUM 1.9 MG/DL (1.6-2.4)
[2020-11-20] MEDS: MAGNESIUM 1 GM/100 ML IVPB 100 ML IV SCH (02:22)
[2020-11-20] MEDS: KCL 20 MEQ TAB (K-DUR) PO SCH (02:23)
[2020-11-20] MEDS: POTASSIUM CL 10MEQ/50ML IVPB 50 ML IV SCH ×3 (02:23→04:03)
--- NOTE | 2020-11-20 04:12 | Pulmonary Progress Note ---
Subjective Time Seen by a Provider: 04:06 Sepsis Event Evaluation Height, Weight, BMI Height: 5'6.00" Weight: 139lbs. 0.0oz. 63.671776do; 134.37 BMI Method:Actual Focused Exam Lactate Level 11/19/20 12:00: Lactic Acid Level 0.59 Exam Exam Vital Signs Date Time Temp Pulse Resp B/P (MAP) Pulse Ox O2 Delivery O2 Flow Rate FiO2 11/20/20 01:53 53 105/63 11/19/20 23:30 Nasal Cannula 1.00 11/19/20 23:00 50 13 122/76 (91) 94 Room Air 11/19/20 22:00 50 14 132/78 (96) 96 Room Air 11/19/20 21:22 96 Nasal Cannula 2.00 11/19/20 21:00 51 13 116/67 (83) 97 Room Air 11/19/20 21:00 98 Nasal Cannula 2.00 11/19/20 20:00 55 12 119/76 (90) 97 Room Air 11/19/20 19:00 52 13 118/73 (88) 97 Room Air 11/19/20 19:00 52 11/19/20 18:55 35.3 11/19/20 18:00 54 13 117/75 (89) 96 Room Air 11/19/20 17:48 53 97/63 11/19/20 17:29 51 126/78 11/19/20 17:00 51 11 108/69 (82) 98 Room Air 11/19/20 16:00 52 11 120/75 (90) 98 Room Air 11/19/20 16:00 35.8 11/19/20 15:42 51 130/80 11/19/20 15:36 49 123/80 11/19/20 15:35 53 87/58 11/19/20 15:14 Room Air 11/19/20 15:00 52 13 93/67 (76) 99 Nasal Cannula 2.00 11/19/20 14:37 Nasal Cannula 2.00 11/19/20 14:36 52 88/57 11/19/20 14:29 55 139/79 11/19/20 14:00 53 12 98 Nasal Cannula 4.00 11/19/20 13:00 55 11/19/20 13:00 Nasal Cannula 4.00 11/19/20 13:00 56 13 100 Nasal Cannula 4.00 11/19/20 12:56 53 153/91 11/19/20 12:36 56 170/98 11/19/20 12:35 35.0 11/19/20 12:32 56 180/105 11/19/20 12:15 35 80/58 11/19/20 12:09 56 88/61 11/19/20 12:03 Nasal Cannula 7.00 11/19/20 12:00 55 16 105/66 (79) 90 Nasal Cannula 4.00 11/19/20 11:23 11/19/20 11:23 Nasal Cannula 4.00 11/19/20 11:00 64 13 98 Nasal Cannula 2.00 11/19/20 11:00 71/45 (54) Nasal Cannula 2.00 11/19/20 10:37 35.8 65 16 78/49 (59) 93 Nasal Cannula 2.00 11/19/20 09:50 98 Room Air 11/19/20 08:36 Room Air 11/19/20 08:34 100 Room Air 11/19/20 07:48 35.3 56 18 103/66 (78) 98 Nasal Cannula 2.00 11/19/20 07:00 63 I & O 11/20/20 06:59 Intake Total 1545 ml Output Total 1405 ml Balance 140 ml Height & Weight Height: 5'6.00" Weight: 139lbs. 0.0oz. 63.527740aw; 134.37 BMI Method:Actual General Appearance: No Apparent Distress, Chronically ill, Thin HEENT: PERRL/EOMI, Other (dry mucous membranes) Neck: Normal Inspection, Non Tender Respiratory: Chest Non Tender, No Accessory Muscle Use, No Respiratory Distress Cardiovascular: No JVD, Bradycardia, Other (mild swelling B feet) Capillary Refill: Less Than 3 Seconds Gastrointestinal: non tender, soft, other (Gastrostomy tube in place to LUQ, sutured in place) Extremity: Pedal Edema (mild edema to B feet) Neurologic/Psychiatric: Alert; No Oriented x3 Skin: Warm/Dry Lymphatic: No Adenopathy Results Lab Laboratory Tests 11/19/20 03:29 11/19/20 12:00 11/20/20 01:51 Assessment/Plan Assessment/Plan Acute respiratory failure-- Improved -Pt is only requiring 2 liters of oxygen -Cultures pending -CT chest reveiwed -S/p Abx Pulmonary edema with R> L pleural effusion and elevated BNP echocardiogram 55-60% Sepis secondary to bacteremia with staph epi -Continue abx Sinus bradycardia - currently HR in th 50's -Continue to monitor -S/p atropine yesterday. Hypotension -Levophed is off -NS is currently at 125 -Check BNP and PCT COVID PUI COVID PCR still pending, rapid negative MAT protocol Oxygen Intellectual Disability Dysphagia PEM- moderate Hypoglycemia PEG placed last week -Peg tube became dislodged today and then replaced TF with Jevity 1.5 at 45ml/hr with 125ml Q4 Anemia with Thrombocyotpenia -Check DIC panel S/p 1 unit pRBCs -Will give another unit of PRBC secondary to Hb of 6.8 Surgery following Monitor CHRISTIANO DARLING DO Nov 20, 2020 04:12
[2020-11-20] MEDS: NOREPINEPHRINE 4 MG/250 ML 250 ML IV SCH ×2 (04:56→16:28)
[2020-11-20] MEDS ORDERED: NS IV 500 ML 500 ML IV SCH (05:15)
[2020-11-20 05:16] LABS: FIBRIN DEGRADATION PRODUCTS 2.06 UG/ML (0.00-0.49)
[2020-11-20] MEDS: NS IV 1000 ML 1,000 ML IV SCH ×3 (06:29→21:16)
[2020-11-20] MEDS: MULTIVITAMINS LIQUID 15 ML UDC PO SCH (06:41)
[2020-11-20] MEDS: RT-ALBUTEROL INHALER HFA (VENTOLIN HFA) 18 GM IH SCH ×2 (07:18→20:47)
--- NOTE | 2020-11-20 07:41 | Progress Note - Surgery ---
DONNIE BUI MED STUDENT 11/20/20 0741: Subjective Date Seen by a Provider: Nov 20, 2020 Time Seen by a Provider: 06:50 Subjective/Events-last exam Pt seen and examined. He was laying in bed, NAD. He in unresponsive. Per nursing, he pulled out his central line but she was able to get IV access. Review of Systems unable to obtain, noncommunicative Focused Exam Lactate Level 11/19/20 12:00: Lactic Acid Level 0.59 Objective Exam Vital Signs Date Time Temp Pulse Resp B/P (MAP) Pulse Ox O2 Delivery O2 Flow Rate FiO2 11/20/20 07:19 92 Nasal Cannula 2.00 11/20/20 06:00 50 19 99/64 (76) 92 Nasal Cannula 1.00 11/20/20 05:00 52 20 90/58 (69) 95 Nasal Cannula 1.00 11/20/20 04:00 52 22 91/63 (72) 91 Nasal Cannula 1.00 11/20/20 03:00 57 13 92/64 (73) 94 Nasal Cannula 1.00 11/20/20 02:45 59 111/72 11/20/20 02:00 53 13 91/63 (72) 91 Nasal Cannula 1.00 11/20/20 01:53 53 105/63 11/20/20 01:00 51 17 116/69 (85) 91 Nasal Cannula 1.00 11/20/20 01:00 53 11/20/20 00:00 48 13 118/98 (105) 93 Nasal Cannula 1.00 11/19/20 23:30 Nasal Cannula 1.00 11/19/20 23:00 50 13 122/76 (91) 94 Room Air 11/19/20 22:00 50 14 132/78 (96) 96 Room Air 11/19/20 21:22 96 Nasal Cannula 2.00 11/19/20 21:00 51 13 116/67 (83) 97 Room Air 11/19/20 21:00 98 Nasal Cannula 2.00 11/19/20 20:00 55 12 119/76 (90) 97 Room Air 11/19/20 19:00 52 13 118/73 (88) 97 Room Air 11/19/20 19:00 52 11/19/20 18:55 35.3 11/19/20 18:00 54 13 117/75 (89) 96 Room Air 11/19/20 17:48 53 97/63 11/19/20 17:29 51 126/78 11/19/20 17:00 51 11 108/69 (82) 98 Room Air 11/19/20 16:00 52 11 120/75 (90) 98 Room Air 11/19/20 16:00 35.8 11/19/20 15:42 51 130/80 11/19/20 15:36 49 123/80 11/19/20 15:35 53 87/58 11/19/20 15:14 Room Air 11/19/20 15:00 52 13 93/67 (76) 99 Nasal Cannula 2.00 11/19/20 14:37 Nasal Cannula 2.00 11/19/20 14:36 52 88/57 11/19/20 14:29 55 139/79 11/19/20 14:00 53 12 98 Nasal Cannula 4.00 11/19/20 13:00 55 11/19/20 13:00 Nasal Cannula 4.00 11/19/20 13:00 56 13 100 Nasal Cannula 4.00 11/19/20 12:56 53 153/91 11/19/20 12:36 56 170/98 11/19/20 12:35 35.0 11/19/20 12:32 56 180/105 11/19/20 12:15 35 80/58 11/19/20 12:09 56 88/61 11/19/20 12:03 Nasal Cannula 7.00 11/19/20 12:00 55 16 105/66 (79) 90 Nasal Cannula 4.00 11/19/20 11:23 11/19/20 11:23 Nasal Cannula 4.00 11/19/20 11:00 64 13 98 Nasal Cannula 2.00 11/19/20 11:00 71/45 (54) Nasal Cannula 2.00 11/19/20 10:37 35.8 65 16 78/49 (59) 93 Nasal Cannula 2.00 11/19/20 09:50 98 Room Air 11/19/20 08:36 Room Air 11/19/20 08:34 100 Room Air 11/19/20 07:48 35.3 56 18 103/66 (78) 98 Nasal Cannula 2.00 I & O 11/20/20 07:00 Intake Total 2885 ml Output Total 1755 ml Balance 1130 ml Capillary Refill : Less Than 3 Seconds General Appearance: No Apparent Distress, Chronically ill, Thin HEENT: PERRL/EOMI, Other (dry mucous membranes) Neck: Normal Inspection, Non Tender Respiratory: Chest Non Tender, No Accessory Muscle Use, No Respiratory Distr ess, Decreased Breath Sounds, Rhonci Cardiovascular: No JVD, Bradycardia, Other (mild swelling B feet) Gastrointestinal: non tender, soft, other (Gastrostomy tube in place to LUQ, sutured in place) Extremity: Pedal Edema (mild edema to B feet) Neurologic/Psychiatric: Alert; No Oriented x3 Skin: Warm/Dry Lymphatic: No Adenopathy Results Lab Laboratory Tests 11/19/20 12:00: White Blood Count 2.5L, Red Blood Count 2.42L, Hemoglobin 7.1L, Hematocrit 22L, Mean Corpuscular Volume 89, Mean Corpuscular Hemoglobin 29, Mean Corpuscular Hemoglobin Concent 33, Red Cell Distribution Width 17.1H, Platelet Count 122L, Mean Platelet Volume 11.3, Immature Granulocyte % (Auto) 0, Neutrophils (%) (Auto) 78H, Lymphocytes (%) (Auto) 13, Monocytes (%) (Auto) 8, Eosinophils (%) (Auto) 1, Basophils (%) (Auto) 0, Neutrophils # (Auto) 2.0, Lymphocytes # (Auto) 0.3L, Monocytes # (Auto) 0.2, Eosinophils # (Auto) 0.0, Basophils # (Auto) 0.0, Immature Granulocyte # (Auto) 0.0, Lactic Acid Level 0.59 11/20/20 01:51: White Blood Count 2.5L, Red Blood Count 2.30L, Hemoglobin 6.8*L, Hematocrit 21L, Mean Corpuscular Volume 90, Mean Corpuscular Hemoglobin 30, Mean Corpuscular Hemoglobin Concent 33, Red Cell Distribution Width 17.2H, Platelet Count 98L, Mean Platelet Volume 10.7, Immature Granulocyte % (Auto) 0, Neutrophils (%) (Auto) 73, Lymphocytes (%) (Auto) 18, Monocytes (%) (Auto) 7, Eosinophils (%) (Auto) 2, Basophils (%) (Auto) 0, Neutrophils # (Auto) 1.8, Lymphocytes # (Auto) 0.4L, Monocytes # (Auto) 0.2, Eosinophils # (Auto) 0.0, Basophils # (Auto) 0.0, Immature Granulocyte # (Auto) 0.0, Sodium Level 144, Potassium Level 3.3L, Chloride Level 111H, Carbon Dioxide Level 25, Anion Gap 8, Blood Urea Nitrogen 13, Creatinine 0.63, Estimat Glomerular Filtration Rate > 60, BUN/Creatinine Ratio 21, Glucose Level 70, Calcium Level 7.8L, Phosphorus Level 2.7, Magnesium Level 1.9 11/20/20 04:40: Prothrombin Time 14.0, INR Comment 1.0, Activated Partial Thromboplast Time 63H, Fibrinogen 676H, D-Dimer 2.06H Microbiology 11/19/20 Blood Culture, Received Pending Assessment/Plan Assessment/Plan Assessment/Plan Aspiration pneumonia - chest x-ray with 5 lobed infiltrates and airspace disease with pleural effusion. Dysphagia - gastrostomy tube was pulled out by pt 3 days ago, replaced 3 days ago Anemia - Hgb 6.8 Bradycardia Healing antral ulcer, erosive esophagitis Intellectual disability Bradycardia Hypotension Patient currently NPO, receiving feeds through gastrostomy tube Follow hemoglobin and transfusing as needed Central line was placed yesterday but pulled out by pt. Nursing was able to start/maintain peripheral IV access Continue Protonix Continue to monitor labs, VS, agitation Clinical Quality Measures DVT/VTE Risk/Contraindication: Risk Factor Score Per Nursin RFS Level Per Nursing on Admit: 4+=Very High KARYN SMITH DO 11/21/202053: Subjective Subjective/Events-last exam Patient alert, but more sedated than usual. Patient pulled central line. Has IV access. Objective Exam General Appearance: No Apparent Distress, Chronically ill HEENT: PERRL/EOMI Neck: Normal Inspection, Non Tender Respiratory: No Accessory Muscle Use, No Respiratory Distress, Decreased Breath Sounds Cardiovascular: No JVD, Bradycardia Gastrointestinal: non tender, soft, other (Gastrostomy tube in place to LUQ, sutured in place) Extremity: Pedal Edema (mild edema to B feet) Neurologic/Psychiatric: Alert; No Oriented x3 Skin: Warm/Dry, Pallor Lymphatic: No Adenopathy Assessment/Plan Assessment/Plan Assessment/Plan Aspiration pneumonia - chest x-ray with 5 lobed infiltrates and airspace disease with pleural effusion. Dysphagia - gastrostomy tube was pulled out by pt 3 days ago, replaced 3 days ago Anemia Bradycardia Healing antral ulcer, erosive esophagitis Intellectual disability Bradycardia Hypotension Patient currently NPO, receiving feeds through gastrostomy tube Follow hemoglobin and transfusing as needed Central line was placed yesterday but pulled out by pt. Nursing was able to start/maintain peripheral IV access Continue Protonix Continue to monitor labs, VS, agitation Supervisory-Addendum Brief Verification & Attestation Participated in pt care: history, MDM, physical Personally performed: exam, history, MDM, supervision of care Care discussed with: Medical Student Procedures: n/a Results interpretation: Verified all documentation Verification and Attestation of Medical Student E/M Service A medical student performed and documented this service in my presence. I reviewed and verified all information documented by the medical student and made modifications to such information, when appropriate. I personally performed the physical exam and medical decision making. Karyn Smith, Nov 20, 2020,20:53 DONNIE BUI MED STUDENT Nov 20, 2020 07:41 KARYN SMITH DO Nov 21, 2020 20:54
[2020-11-20] MEDS: PANTOPRAZOLE 40 MG (PROTONIX) VIAL IV SCH (08:26)
[2020-11-20] MEDS: AMPICILLIN/SULBACTAM INJECTION 1.5 GM in NS (IVPB) 100 ML IV SCH ×2 (08:26→16:34)
[2020-11-20] MEDS: polyethylene glycoL POWDER 17 GM (MIRALAX) PACK PO SCH (08:27)
[2020-11-20] MEDS: DOCUSATE SODIUM 100 MG (COLACE) CAP PO SCH ×2 (08:27→21:16)
--- NOTE | 2020-11-20 08:35 | Diagnostic Imaging Report ---
INDICATION: Dyspnea and gastrointestinal bleed. Time of exam: 3:33 AM Correlation is made with prior exam one day earlier. Extensive bilateral infiltrates particularly on the right persists. No significant effusion is seen. There is no effusion or pneumothorax identified. IMPRESSION: No significant change in diffuse bilateral pulmonary infiltrates when compared with examination one day earlier. Dictated by: Dictated on workstation # [id number]
[2020-11-20] MEDS ORDERED: NS IV 500 ML 500 ML ONE (10:23)
--- NOTE | 2020-11-20 11:05 | Progress Note - Hospitalist ---
Subjective HPI/CC On Admission Date Seen by Provider: Nov 20, 2020 Time Seen by Provider: 09:10 Pt is a 65yoCM with a PMH of ID who lives at [facility] who presented to the ER due to hypoxia. He was just discharged from the hospital yesterday after being admitted for aspiration pneumonia and PEG tube placement. He completed a week lo ng course of IV abx prior to discharge. He was doing well off oxygen. Today he developed some shortness of breath and hypoxia prompting evaluation in the ER. He was mildly hypoxic at 87& and placed on 2-3lpm NC and was up to 95%. He is unable to provide me any history due to baseline mentation. Subjective/Events-last exam He is more awake today. He is lethargic but arousable. He opens his eyes. Focused Exam Lactate Level 11/19/20 12:00: Lactic Acid Level 0.59 Objective Exam Vital Signs Vital Signs Date Time Temp Pulse Resp B/P (MAP) Pulse Ox O2 Delivery O2 Flow Rate FiO2 11/20/20 10:51 36.0 53 16 87/52 91 Nasal Cannula 2.00 11/17/20 03:16 28 Capillary Refill : Less Than 3 Seconds General Appearance: No Apparent Distress, WD/WN Respiratory: No Respiratory Distress, Other (coarse breath sounds bilaterally) Cardiovascular: Regular Rate, Rhythm, No Edema, No Murmur Gastrointestinal: Normal Bowel Sounds, Soft, Other (PEG tube in place) Extremity: Normal Inspection, No Pedal Edema Neurologic/Psychiatric: Other (lethargic, arousable, opens eyes to verbal stimuli) Skin: Normal Color, Warm/Dry Results/Procedures Lab Laboratory Tests 11/19/20 12:00 11/20/20 01:51 Patient resulted labs reviewed. Imaging: Reviewed Imaging Report Assessment/Plan Assessment and Plan Assess & Plan/Chief Complaint Acute respiratory failure likely due to aspiration pneumonia MRSE bacteremia Hypotension Bradycardia Transitioned to Unasyn yesterday Blood cultures positive for Staph epidermidis, MRSE Started Vancomycin today Transferred to ICU due to hypotension Repeat blood cultures drawn Central line placed by surgery, appreciate assistance Started on Levophed Required Atropine due to bradycardia Intellectual Disability Dysphagia Malnutrition PEG tube malfunction Poor prognosis PEG placed last week, dislodged by patient, replaced by surgery Continue tube feeds and free water NPO Speech therapy consult- will likely need barium swallow Palliative care consulted, appreciate assistance Anemia Thrombocyotpenia s/p 1 unit pRBC Hgb trending down again, 7.3 Platelets increasing, 119 DVT ppx: Lovenox Hypoglycemia, resolved Diagnosis/Problems Diagnosis/Problems (1) Hypotension Status: Acute (2) Bacteremia due to methicillin resistant Staphylococcus epidermidis Status: Acute (3) Aspiration pneumonia Status: Acute (4) Intellectual disability Status: Chronic (5) Pancytopenia Status: Acute (6) Bradycardia with 31-40 beats per minute Clinical Quality Measures DVT/VTE Risk/Contraindication: Risk Factor Score Per Nursin RFS Level Per Nursing on Admit: 4+=Very High ELYSSA ANTUNEZ MD Nov 20, 2020 11:04
[2020-11-20] MEDS: VANCOMYCIN 750 MG/NS 250 ML IVPB IV SCH ×2 (11:58)
[2020-11-20] MEDS: ENOXAPARIN 30 MG/0.3 ML (LOVENOX) SYR SC SCH (16:34)
[2020-11-20] MEDS: OLANZapine 5 MG (ZyPREXA) TAB PO SCH (21:16)
[2020-11-20] MEDS: MELATONIN 10 MG TABLET PO SCH (21:16)
[2020-11-21] VITALS (13 sets, daily range): BP systolic 95–120; BP diastolic 60–77
[2020-11-21] MEDS: NS IV 1000 ML 1,000 ML IV SCH ×3 (00:29→21:20)
[2020-11-21] MEDS: AMPICILLIN/SULBACTAM INJECTION 1.5 GM in NS (IVPB) 100 ML IV SCH ×3 (00:29→17:14)
[2020-11-21 03:27] LABS: BASOPHILS % (AUTO) 0 % (0-10); EOSINOPHILS % (AUTO) 1 % (0-10); MEAN CORPUSCULAR VOLUME 90 fL (80-99)
[2020-11-21 03:29] LABS: HEMATOCRIT 24 % (40-54); LYMPHOCYTES # (AUTO) 0.3 10^3/uL (1.0-4.0); LYMPHOCYTES % (AUTO) 13 % (12-44); MEAN CORPUSCULAR HEMOGLOBIN 30 pg (25-34); MEAN CORPUSCULAR HGB CONC 33 g/dL (32-36); MEAN PLATELET VOLUME 11.6 fL (9.0-12.2); MONOCYTES # (AUTO) 0.1 10^3/uL (0.0-1.0); MONOCYTES % (AUTO) 5 % (0-12); NEUTROPHILS # (AUTO) 2.1 10^3/uL (1.8-7.8); NEUTROPHILS % (AUTO) 81 % (42-75); PLATELET COUNT 112 10^3/uL (130-400); WHITE BLOOD COUNT 2.6 10^3/uL (4.3-11.0)
[2020-11-21 03:37] LABS: CHLORIDE 114 MMOL/L (98-107); POTASSIUM 3.5 MMOL/L (3.6-5.0); SODIUM 143 MMOL/L (135-145)
[2020-11-21 03:39] LABS: CALCIUM 7.7 MG/DL (8.5-10.1); GLUCOSE 119 MG/DL (70-105)
[2020-11-21 03:41] LABS: CARBON DIOXIDE 23 MMOL/L (21-32)
[2020-11-21 03:43] LABS: CREATININE SERUM 0.58 MG/DL (0.60-1.30); GFR ESTIMATED > 60; PHOSPHORUS 2.3 MG/DL (2.3-4.7)
[2020-11-21 03:44] LABS: BUN/CREATININE RATIO 17
[2020-11-21 03:45] LABS: MAGNESIUM 1.9 MG/DL (1.6-2.4)
[2020-11-21] MEDS: POTASSIUM CL 10MEQ/50ML IVPB 50 ML IV SCH ×3 (03:57→05:34)
[2020-11-21] MEDS: MAGNESIUM 1 GM/100 ML IVPB 100 ML IV SCH (03:57)
[2020-11-21] MEDS: KCL 20 MEQ TAB (K-DUR) PO SCH (03:57)
[2020-11-21] MEDS: NOREPINEPHRINE 4 MG/250 ML 250 ML IV SCH (05:59)
[2020-11-21] MEDS: MULTIVITAMINS LIQUID 15 ML UDC PO SCH (06:26)
[2020-11-21] MEDS: RT-ALBUTEROL INHALER HFA (VENTOLIN HFA) 18 GM IH SCH (06:47)
--- NOTE | 2020-11-21 07:15 | Progress Note - Surgery ---
DONNIE BUI MED STUDENT 11/21/20 0715: Subjective Date Seen by a Provider: Nov 21, 2020 Time Seen by a Provider: 06:50 Subjective/Events-last exam Pt seen and examined. Resting in bed, NAD. Pt is alert but unresponsive. Review of Systems unable to obtain, noncommunicative Focused Exam Lactate Level 11/19/20 12:00: Lactic Acid Level 0.59 Objective Exam Vital Signs Date Time Temp Pulse Resp B/P (MAP) Pulse Ox O2 Delivery O2 Flow Rate FiO2 11/21/20 06:51 Nasal Cannula 2.00 11/21/20 06:47 88 Nasal Cannula 1.00 11/21/20 06:00 60 15 95/64 (74) Nasal Cannula 1.00 11/21/20 05:00 59 15 103/67 (79) 91 Nasal Cannula 1.00 11/21/20 04:00 35.0 11/21/20 04:00 54 18 106/77 (87) 95 Nasal Cannula 1.00 11/21/20 03:00 54 14 100/70 (80) 92 Nasal Cannula 1.00 11/21/20 02:00 52 15 107/76 (86) 92 Nasal Cannula 1.00 11/21/20 01:00 55 11/21/20 01:00 54 17 111/68 (82) 91 Nasal Cannula 1.00 11/21/20 00:00 35.1 11/21/20 00:00 51 15 107/71 (83) 94 Nasal Cannula 1.00 11/20/20 23:00 52 13 107/68 (81) 94 Nasal Cannula 1.00 11/20/20 22:00 52 13 110/69 (83) 95 Nasal Cannula 1.00 11/20/20 21:00 53 14 96/63 (74) 94 Nasal Cannula 1.00 11/20/20 21:00 94 Nasal Cannula 2.00 11/20/20 20:47 96 Nasal Cannula 2.00 11/20/20 20:07 35.6 11/20/20 20:00 51 20 108/61 (77) 94 Nasal Cannula 1.00 11/20/20 19:00 50 11/20/20 19:00 48 15 120/75 (90) 93 Nasal Cannula 1.00 11/20/20 18:00 49 13 108/68 (83) 93 Nasal Cannula 1.00 11/20/20 17:52 94 Nasal Cannula 2.00 11/20/20 17:45 50 14 101/70 (81) 94 11/20/20 17:30 49 12 111/76 (92) 96 11/20/20 17:15 49 12 106/71 (88) 95 11/20/20 17:00 48 13 112/76 (91) 97 Nasal Cannula 1.00 11/20/20 16:45 47 14 109/75 (91) 95 11/20/20 16:30 49 17 102/73 (85) 92 11/20/20 16:28 106/75 11/20/20 16:15 49 106/75 (86) 93 11/20/20 16:00 48 102/76 (86) 97 Nasal Cannula 1.00 11/20/20 15:45 46 112/67 (86) 93 11/20/20 15:30 48 104/72 (85) 93 11/20/20 15:15 48 104/71 (83) 93 11/20/20 15:00 48 0 105/73 (84) 93 Nasal Cannula 1.00 11/20/20 14:45 49 30 121/106 (117) 93 11/20/20 14:30 46 13 100/64 (76) 95 11/20/20 14:15 47 14 108/68 (83) 93 11/20/20 14:00 49 17 110/70 (86) 95 Nasal Cannula 1.00 11/20/20 13:45 52 44 110/76 (84) 92 11/20/20 13:30 50 12 108/73 (86) 90 11/20/20 13:15 50 15 104/65 (78) 92 Nasal Cannula 1.00 11/20/20 13:00 53 11 100/68 (77) 92 11/20/20 12:56 50 11/20/20 12:50 36.0 49 15 105/69 93 Nasal Cannula 2.00 11/20/20 12:45 49 15 105/69 (75) 92 11/20/20 12:30 49 13 113/70 (81) 94 11/20/20 12:15 49 12 96/74 (81) 94 11/20/20 12:00 53 21 111/72 (86) 92 Nasal Cannula 1.00 11/20/20 11:56 35.4 11/20/20 11:45 48 15 103/68 (80) 94 11/20/20 11:30 106/62 (77) 11/20/20 11:15 52 10 108/62 (76) 94 11/20/20 11:00 49 11 100/66 (80) 95 11/20/20 10:51 36.0 53 16 87/52 91 Nasal Cannula 2.00 11/20/20 10:45 53 23 87/52 (65) 97 Nasal Cannula 1.00 11/20/20 10:36 36.0 54 16 92/58 92 Nasal Cannula 2.00 11/20/20 10:30 53 16 92/58 (73) 93 11/20/20 10:18 56 15 88/59 (67) 90 11/20/20 10:15 53 14 93/88 (92) 87 11/20/20 10:00 53 13 73/38 (42) 91 Nasal Cannula 1.00 11/20/20 09:45 58 18 85/55 (63) 92 11/20/20 09:30 54 22 90/52 (68) 92 11/20/20 09:15 53 17 97/60 (76) 91 11/20/20 09:00 54 29 94/60 (73) 93 Nasal Cannula 1.00 11/20/20 09:00 98 Nasal Cannula 2.00 11/20/20 08:45 54 15 98/64 (75) 91 11/20/20 08:30 58 14 96/71 (79) 93 11/20/20 08:15 57 30 98/63 (81) 88 11/20/20 08:00 58 8 116/74 (87) 96 Nasal Cannula 1.00 11/20/20 07:45 53 13 87/59 (69) 89 11/20/20 07:44 35.3 11/20/20 07:30 53 16 86/59 (69) 87 11/20/20 07:19 92 Nasal Cannula 2.00 11/20/20 07:15 47 23 98/62 (77) 95 I & O 11/21/20 07:00 Intake Total 1300 ml Output Total 1200 ml Balance 100 ml Capillary Refill : Less Than 3 Seconds General Appearance: No Apparent Distress, Chronically ill, Thin HEENT: PERRL/EOMI, Other (dry mucous membranes) Neck: Normal Inspection, Non Tender Respiratory: Chest Non Tender, No Accessory Muscle Use, No Respiratory Distress, Rhonci Cardiovascular: No Gallop, No JVD, No Murmur, Normal Peripheral Pulses, Bradycardia, Other (Mild edema BLE) Gastrointestinal: non tender, soft, other (Gastrostomy tube in place to LUQ, sutured in place) Extremity: Normal Capillary Refill, Non Tender, Pedal Edema Neurologic/Psychiatric: Alert, Motor Weakness Skin: Normal Color, Warm/Dry Lymphatic: No Adenopathy Results Lab Laboratory Tests 11/21/20 03:09: White Blood Count 2.6L, Red Blood Count 2.71L, Hemoglobin 8.0L, Hematocrit 24L, Mean Corpuscular Volume 90, Mean Corpuscular Hemoglobin 30, Mean Corpuscular Hemoglobin Concent 33, Red Cell Distribution Width 16.4H, Platelet Count 112L, Mean Platelet Volume 11.6, Immature Granulocyte % (Auto) 0, Neutrophils (%) (Aut o) 81H, Lymphocytes (%) (Auto) 13, Monocytes (%) (Auto) 5, Eosinophils (%) (Auto) 1, Basophils (%) (Auto) 0, Neutrophils # (Auto) 2.1, Lymphocytes # (Auto) 0.3L, Monocytes # (Auto) 0.1, Eosinophils # (Auto) 0.0, Basophils # (Auto) 0.0, Immature Granulocyte # (Auto) 0.0, Sodium Level 143, Potassium Level 3.5L, Chloride Level 114H, Carbon Dioxide Level 23, Anion Gap 6, Blood Urea Nitrogen 10, Creatinine 0.58L, Estimat Glomerular Filtration Rate > 60, BUN/Creatinine Ratio 17, Glucose Level 119H, Calcium Level 7.7L, Phosphorus Level 2.3, Magnesium Level 1.9 Microbiology 11/19/20 Blood Culture - Preliminary, Resulted No growth Assessment/Plan Assessment/Plan Assessment/Plan Aspiration pneumonia - chest x-ray with 5 lobed infiltrates and airspace disease with pleural effusion. Dysphagia - gastrostomy tube was pulled out by pt 4 days ago, replaced 4 days ago Anemia - Hgb 8.0, 1U transfused yesterday Bradycardia Healing antral ulcer, erosive esophagitis Intellectual disability Bradycardia Hypotension Patient currently NPO, receiving feeds through gastrostomy tube. No residuals per nursing Follow Hgb and transfusing as needed Continue Protonix Continue to monitor labs, VS, agitation No surgical intervention indicated at this time Clinical Quality Measures DVT/VTE Risk/Contraindication: Risk Factor Score Per Nursin RFS Level Per Nursing on Admit: 4+=Very High KARYN SMITH DO 11/21/202056: Subjective Subjective/Events-last exam More alert today. Laying in bed. Hgb 8 Nonverbal. Objective Exam General Appearance: No Apparent Distress, Chronically ill HEENT: PERRL/EOMI, Other (dry mucous membranes) Neck: Normal Inspection, Non Tender Respiratory: Chest Non Tender, No Accessory Muscle Use, No Respiratory Distress Cardiovascular: No JVD, Bradycardia, Other (Mild edema BLE) Gastrointestinal: non tender, soft Extremity: Normal Capillary Refill, Non Tender Neurologic/Psychiatric: Alert; No Oriented x3 Skin: Normal Color, Warm/Dry Lymphatic: No Adenopathy Assessment/Plan Assessment/Plan Assessment/Plan Aspiration pneumonia - chest x-ray with 5 lobed infiltrates and airspace disease with pleural effusion. Dysphagia - gastrostomy tube was pulled out by pt 4 days ago, replaced 4 days ago Anemia - Hgb 8.0, 1U transfused yesterday Bradycardia Healing antral ulcer, erosive esophagitis Intellectual disability Bradycardia Hypotension Patient currently NPO, receiving feeds through gastrostomy tube. No residuals pe r nursing Follow Hgb and transfusing as needed Continue Protonix Continue to monitor labs, VS, agitation No surgical intervention indicated at this time will sign off, call if needed Supervisory-Addendum Brief Verification & Attestation Participated in pt care: history, MDM, physical Personally performed: exam, history, MDM, supervision of care Care discussed with: Medical Student Procedures: n/a Results interpretation: Verified all documentation Verification and Attestation of Medical Student E/M Service A medical student performed and documented this service in my presence. I reviewed and verified all information documented by the medical student and made modifications to such information, when appropriate. I personally performed the physical exam and medical decision making. Karyn Smith, Nov 21, 2020,20:57 DONNIE BUI MED STUDENT Nov 21, 2020 07:15 KARYN SMITH DO Nov 21, 2020 20:57
--- NOTE | 2020-11-21 07:52 | Diagnostic Imaging Report ---
INDICATION: Hypoxemia, gastrointestinal bleeding Portable chest 1:13 AM Heart size and pulmonary vascularity are normal. There are diffuse pulmonary infiltrates in the lungs. There are no effusions or pneumothoraces. IMPRESSION: Diffuse pulmonary infiltrates consistent with ARDS. These appear slightly worse in the left lung compared to the previous day. Dictated by: Dictated on workstation # [id number]
[2020-11-21] MEDS: PANTOPRAZOLE 40 MG (PROTONIX) VIAL IV SCH (08:37)
[2020-11-21] MEDS: polyethylene glycoL POWDER 17 GM (MIRALAX) PACK PO SCH (08:37)
[2020-11-21] MEDS: DOCUSATE SODIUM 100 MG (COLACE) CAP PO SCH ×2 (08:37→21:20)
[2020-11-21] MEDS: VANCOMYCIN 750 MG/NS 250 ML IVPB IV SCH ×2 (11:24)
--- NOTE | 2020-11-21 15:25 | Progress Note - Hospitalist ---
Subjective HPI/CC On Admission Date Seen by Provider: Nov 21, 2020 Time Seen by Provider: 09:10 Pt is a 65yoCM with a PMH of ID who lives at [facility] who presented to the ER due to hypoxia. He was just discharged from the hospital yesterday after being admitted for aspiration pneumonia and PEG tube placement. He completed a week lo ng course of IV abx prior to discharge. He was doing well off oxygen. Today he developed some shortness of breath and hypoxia prompting evaluation in the ER. He was mildly hypoxic at 87& and placed on 2-3lpm NC and was up to 95%. He is unable to provide me any history due to baseline mentation. Subjective/Events-last exam He is sleeping on my arrival. He is easily arousable. He is nonverbal and uncooperative. Focused Exam Lactate Level 11/19/20 12:00: Lactic Acid Level 0.59 Objective Exam Vital Signs Vital Signs Date Time Temp Pulse Resp B/P (MAP) Pulse Ox O2 Delivery O2 Flow Rate FiO2 11/21/20 12:47 64 11/21/20 12:15 Nasal Cannula 2.00 11/21/20 11:21 35.0 11/21/20 10:00 19 111/67 (82) 91 11/17/20 03:16 28 Capillary Refill : Less Than 3 SecondsLess Than 3 Seconds General Appearance: No Apparent Distress, Chronically ill, Thin Respiratory: No Respiratory Distress, Other (coarse breath sounds bilaterally) Cardiovascular: No Edema, No Murmur, Bradycardia Gastrointestinal: Normal Bowel Sounds, Soft Extremity: Normal Inspection, Pedal Edema Neurologic/Psychiatric: Alert, Aphasia, Depressed Affect Skin: Normal Color, Warm/Dry Results/Procedures Lab Laboratory Tests 11/21/20 03:09 Patient resulted labs reviewed. Imaging: Reviewed Imaging Report Assessment/Plan Assessment and Plan Assess & Plan/Chief Complaint Acute respiratory failure likely due to aspiration pneumonia MRSE bacteremia Blood cultures positive for Staph epidermidis, MRSE Repeat blood cultures with no growth Continue Vancomycin and Unasyn Intellectual Disability Dysphagia Severe protein-calorie malnutrition Poor prognosis Continue tube feeds and free water NPO Palliative care consulted, appreciate assistance Anemia Thrombocyotpenia s/p 2 units pRBC Hgb improved post-transfusion, 8 Platelets stable, 112 DVT ppx: Lovenox Hypoglycemia, resolved Hypotension, resolved PEG tube malfunction, resolved Bradycardia, resolved Diagnosis/Problems Diagnosis/Problems (1) Hypotension Status: Acute (2) Bacteremia due to methicillin resistant Staphylococcus epidermidis Status: Acute (3) Aspiration pneumonia Status: Acute (4) Intellectual disability Status: Chronic (5) Pancytopenia Status: Acute (6) Bradycardia with 31-40 beats per minute Clinical Quality Measures DVT/VTE Risk/Contraindication: Risk Factor Score Per Nursin RFS Level Per Nursing on Admit: 4+=Very High ELYSSA ANTUNEZ MD Nov 21, 2020 15:24
[2020-11-21] MEDS: ENOXAPARIN 30 MG/0.3 ML (LOVENOX) SYR SC SCH (17:14)
[2020-11-21] MEDS: MELATONIN 10 MG TABLET PO SCH (21:20)
[2020-11-21] MEDS: OLANZapine 5 MG (ZyPREXA) TAB PO SCH (21:20)
[2020-11-22] VITALS: BP 105/57
[2020-11-22] MEDS: RT-ALBUTEROL INHALER HFA (VENTOLIN HFA) 18 GM IH SCH ×3 (00:19→22:26)
[2020-11-22] MEDS: AMPICILLIN/SULBACTAM INJECTION 1.5 GM in NS (IVPB) 100 ML IV SCH ×3 (00:34→16:53)
[2020-11-22 04:00] VITALS: BP 100/55
[2020-11-22] MEDS: MULTIVITAMINS LIQUID 15 ML UDC PO SCH (04:12)
[2020-11-22 04:34] LABS: BASOPHILS % (AUTO) 0 % (0-10); EOSINOPHILS # (AUTO) 0.1 10^3/uL (0.0-0.3); EOSINOPHILS % (AUTO) 1 % (0-10); HEMATOCRIT 25 % (40-54); HEMOGLOBIN 7.9 g/dL (13.3-17.7); LYMPHOCYTES # (AUTO) 0.4 10^3/uL (1.0-4.0); LYMPHOCYTES % (AUTO) 11 % (12-44); MEAN CORPUSCULAR HEMOGLOBIN 29 pg (25-34); MEAN CORPUSCULAR HGB CONC 32 g/dL (32-36); MEAN CORPUSCULAR VOLUME 91 fL (80-99); MONOCYTES # (AUTO) 0.3 10^3/uL (0.0-1.0); MONOCYTES % (AUTO) 7 % (0-12); NEUTROPHILS % (AUTO) 80 % (42-75); PLATELET COUNT 121 10^3/uL (130-400); WHITE BLOOD COUNT 3.7 10^3/uL (4.3-11.0)
[2020-11-22 04:42] LABS: CHLORIDE 114 MMOL/L (98-107); POTASSIUM 3.6 MMOL/L (3.6-5.0); SODIUM 144 MMOL/L (135-145)
[2020-11-22 04:44] LABS: CALCIUM 7.9 MG/DL (8.5-10.1); GLUCOSE 80 MG/DL (70-105)
[2020-11-22 04:45] LABS: CARBON DIOXIDE 24 MMOL/L (21-32)
[2020-11-22 04:48] LABS: CREATININE SERUM 0.62 MG/DL (0.60-1.30); GFR ESTIMATED > 60
[2020-11-22 04:49] LABS: BUN/CREATININE RATIO 15
[2020-11-22] MEDS: NS IV 1000 ML 1,000 ML IV SCH ×3 (05:34→21:59)
[2020-11-22 07:50] VITALS: BP 124/76
--- NOTE | 2020-11-22 08:04 | Progress Note - Hospitalist ---
Subjective HPI/CC On Admission Date Seen by Provider: Nov 22, 2020 Time Seen by Provider: 06:45 Pt is a 65yoCM with a PMH of ID who lives at [facility] who presented to the ER due to hypoxia. He was just discharged from the hospital yesterday after being admitted for aspiration pneumonia and PEG tube placement. He completed a week lo ng course of IV abx prior to discharge. He was doing well off oxygen. Today he developed some shortness of breath and hypoxia prompting evaluation in the ER. He was mildly hypoxic at 87& and placed on 2-3lpm NC and was up to 95%. He is unable to provide me any history due to baseline mentation. Subjective/Events-last exam he is sleeping upon my arrival. He is easily arousable. He opens his eyes to verbal stimuli. He is speaking unintelligible words. Focused Exam Lactate Level 11/19/20 12:00: Lactic Acid Level 0.59 Objective Exam Vital Signs Vital Signs Date Time Temp Pulse Resp B/P (MAP) Pulse Ox O2 Delivery O2 Flow Rate FiO2 11/22/20 07:47 92 Nasal Cannula 2.00 11/22/20 07:00 68 11/22/20 04:00 36.2 18 100/55 (70) 11/17/20 03:16 28 Capillary Refill : Less Than 3 SecondsLess Than 3 Seconds General Appearance: No Apparent Distress, Chronically ill Respiratory: No Respiratory Distress, Other (coarse breath sounds bilaterally) Cardiovascular: Regular Rate, Rhythm, No Edema, No Murmur Gastrointestinal: Normal Bowel Sounds, Soft, Other (PEG tube in place, abdominal binder) Extremity: Normal Inspection, Pedal Edema Neurologic/Psychiatric: Alert, Other (speaks unintelligible words, does not follow commands) Skin: Normal Color, Warm/Dry Results/Procedures Lab Laboratory Tests 11/22/20 04:10 Patient resulted labs reviewed. Imaging: Reviewed Imaging Report Assessment/Plan Assessment and Plan Assess & Plan/Chief Complaint Acute respiratory failure likely due to aspiration pneumonia MRSE bacteremia Blood cultures positive for Staph epidermidis, MRSE Repeat blood cultures with no growth Continue Vancomycin and Unasyn Intellectual Disability Dysphagia Severe protein-calorie malnutrition Poor prognosis Continue tube feeds and free water NPO Palliative care consulted, appreciate assistance Anemia Thrombocyotpenia s/p 2 units pRBC Hgb improved post-transfusion, 7.9 Platelets improving, 121 DVT ppx: Lovenox Hypoglycemia, resolved Hypotension, resolved PEG tube malfunction, resolved Bradycardia, resolved Diagnosis/Problems Diagnosis/Problems (1) Bacteremia due to methicillin resistant Staphylococcus epidermidis Status: Acute (2) Aspiration pneumonia Status: Acute (3) Intellectual disability Status: Chronic (4) Pancytopenia Status: Acute (5) Bradycardia with 31-40 beats per minute Status: Resolved Resolution Date/Time: 11/22/20 @ 08:04 (6) Hypotension Status: Resolved Resolution Date/Time: 11/22/20 @ 08:04 Clinical Quality Measures DVT/VTE Risk/Contraindication: Risk Factor Score Per Nursin RFS Level Per Nursing on Admit: 4+=Very High ELYSSA ANTUNEZ MD Nov 22, 2020 08:04
[2020-11-22] MEDS: PANTOPRAZOLE 40 MG (PROTONIX) VIAL IV SCH (09:07)
[2020-11-22] MEDS: DOCUSATE SODIUM 100 MG (COLACE) CAP PO SCH ×2 (09:07→20:37)
[2020-11-22] MEDS: polyethylene glycoL POWDER 17 GM (MIRALAX) PACK PO SCH (09:08)
--- NOTE | 2020-11-22 09:10 | Diagnostic Imaging Report ---
INDICATION: Dyspnea EXAMINATION: Chest from 11/22/2020 COMPARISON: 11/21/2020 FINDINGS: The heart is stable. Pulmonary vasculature is congested. Diffuse scattered infiltrates seen throughout both lungs with findings of edema as well. Overall findings have worsened since previous imaging. There are no significant effusions. There is no pneumothorax. IMPRESSION: 1. Pulmonary edema with worsening bilateral infiltrates. Dictated by: Dictated on workstation # [id number]
[2020-11-22] MEDS ORDERED: TROUGH ORDER-PHARMACY XX NR (11:00)
[2020-11-22] MEDS: VANCOMYCIN INJECTION 1,000 MG in NS (IVPB) 250 ML IV SCH (11:24)
[2020-11-22 11:45] VITALS: BP 114/71
[2020-11-22 15:40] VITALS: BP 112/66
[2020-11-22] MEDS: LORazepam INJ 2 MG/ML (ATIVAN) VIAL IVP PRN (16:53)
[2020-11-22] MEDS: ENOXAPARIN 30 MG/0.3 ML (LOVENOX) SYR SC SCH (17:00)
[2020-11-22 19:50] VITALS: BP 95/59
[2020-11-22] MEDS: OLANZapine 5 MG (ZyPREXA) TAB PO SCH (20:38)
[2020-11-22] MEDS: MELATONIN 10 MG TABLET PO SCH (20:38)
[2020-11-23] VITALS: BP 110/67
[2020-11-23] MEDS: AMPICILLIN/SULBACTAM INJECTION 1.5 GM in NS (IVPB) 100 ML IV SCH ×2 (00:48→08:37)
[2020-11-23] MEDS: LORazepam INJ 2 MG/ML (ATIVAN) VIAL IVP PRN ×2 (01:34→18:48)
[2020-11-23 04:00] VITALS: BP 110/67
[2020-11-23] MEDS: MULTIVITAMINS LIQUID 15 ML UDC PO SCH (06:17)
[2020-11-23] MEDS: NS IV 1000 ML 1,000 ML IV SCH (06:17)
[2020-11-23 06:49] LABS: BASOPHILS % (AUTO) 0 % (0-10); EOSINOPHILS % (AUTO) 1 % (0-10); HEMATOCRIT 22 % (40-54); LYMPHOCYTES # (AUTO) 0.5 10^3/uL (1.0-4.0); LYMPHOCYTES % (AUTO) 17 % (12-44); MEAN CORPUSCULAR HEMOGLOBIN 29 pg (25-34); MEAN CORPUSCULAR HGB CONC 32 g/dL (32-36); MEAN CORPUSCULAR VOLUME 91 fL (80-99); MEAN PLATELET VOLUME 11.7 fL (9.0-12.2); MONOCYTES # (AUTO) 0.3 10^3/uL (0.0-1.0); MONOCYTES % (AUTO) 9 % (0-12); NEUTROPHILS % (AUTO) 72 % (42-75); PLATELET COUNT 124 10^3/uL (130-400); WHITE BLOOD COUNT 2.8 10^3/uL (4.3-11.0)
[2020-11-23 07:07] LABS: CHLORIDE 114 MMOL/L (98-107); POTASSIUM 3.5 MMOL/L (3.6-5.0); SODIUM 143 MMOL/L (135-145)
[2020-11-23 07:08] LABS: CALCIUM 7.6 MG/DL (8.5-10.1); GLUCOSE 89 MG/DL (70-105)
[2020-11-23 07:10] LABS: CARBON DIOXIDE 23 MMOL/L (21-32)
[2020-11-23 07:12] LABS: CREATININE SERUM 0.59 MG/DL (0.60-1.30); GFR ESTIMATED > 60
[2020-11-23 07:13] LABS: BUN/CREATININE RATIO 19
[2020-11-23] MEDS: polyethylene glycoL POWDER 17 GM (MIRALAX) PACK PO SCH (07:41)
[2020-11-23] MEDS: DOCUSATE SODIUM 100 MG (COLACE) CAP PO SCH ×2 (07:41→20:31)
[2020-11-23] MEDS: RT-ALBUTEROL INHALER HFA (VENTOLIN HFA) 18 GM IH SCH ×2 (08:03→19:58)
--- NOTE | 2020-11-23 08:09 | Diagnostic Imaging Report ---
EXAM: CHEST 1 VIEW, AP/PA ONLY INDICATION: Dyspnea. COMPARISON: Chest radiograph 11/22/2020. FINDINGS: Normal heart size and central pulmonary vascularity. Dense airspace opacities throughout both lungs, greatest in the right upper lobe. Increasing right pleural effusion along the right lung apex. No pneumothorax. IMPRESSION: 1. Dense airspace opacities throughout both lungs, greatest in the right upper lobe. 2. Increasing right pleural effusion superiorly. Dictated by: Dictated on workstation # [id number]
[2020-11-23] MEDS: PANTOPRAZOLE 40 MG (PROTONIX) VIAL IV SCH (08:38)
[2020-11-23 08:40] VITALS: BP 122/70
--- NOTE | 2020-11-23 09:05 | Progress Note - Hospitalist ---
Subjective HPI/CC On Admission Date Seen by Provider: Nov 23, 2020 Time Seen by Provider: 06:50 Pt is a 65yoCM with a PMH of ID who lives at [facility] who presented to the ER due to hypoxia. He was just discharged from the hospital yesterday after being admitted for aspiration pneumonia and PEG tube placement. He completed a week lo ng course of IV abx prior to discharge. He was doing well off oxygen. Today he developed some shortness of breath and hypoxia prompting evaluation in the ER. He was mildly hypoxic at 87& and placed on 2-3lpm NC and was up to 95%. He is unable to provide me any history due to baseline mentation. Subjective/Events-last exam he is sleeping upon my arrival. He is uncooperative. Objective Exam Vital Signs Vital Signs Date Time Temp Pulse Resp B/P (MAP) Pulse Ox O2 Delivery O2 Flow Rate FiO2 11/23/20 08:40 94 High Flow N/C 10.00 11/23/20 08:40 36.4 73 22 122/70 (87) 11/17/20 03:16 28 Capillary Refill : Less Than 3 SecondsLess Than 3 Seconds General Appearance: No Apparent Distress, Chronically ill, Thin Respiratory: No Respiratory Distress, Other (coarse breath sounds bilaterally) Cardiovascular: Regular Rate, Rhythm, No Murmur Gastrointestinal: Normal Bowel Sounds, Soft, Other (PEG tube in place, abdominal binder) Extremity: Normal Inspection, Pedal Edema Neurologic/Psychiatric: Other (uncooperative, flat affect) Skin: Normal Color, Warm/Dry Results/Procedures Lab Laboratory Tests 11/23/20 06:35 Patient resulted labs reviewed. Imaging: Reviewed Imaging Report Assessment/Plan Assessment and Plan Assess & Plan/Chief Complaint Acute respiratory failure likely due to aspiration pneumonia MRSE bacteremia Blood cultures positive for Staph epidermidis, MRSE Repeat blood cultures with no growth Continue Vancomycin day 514 Stop Unasyn Intellectual Disability Dysphagia Severe protein-calorie malnutrition Poor prognosis Continue tube feeds and free water NPO Palliative care consulted, appreciate assistance Anemia Thrombocyotpenia s/p 2 units pRBC Hgb trending down again, 7 this morning Platelets improving, 124 DVT ppx: Lovenox Hypoglycemia, resolved Hypotension, resolved PEG tube malfunction, resolved Bradycardia, resolved Diagnosis/Problems Diagnosis/Problems (1) Bacteremia due to methicillin resistant Staphylococcus epidermidis Status: Acute (2) Aspiration pneumonia Status: Acute (3) Intellectual disability Status: Chronic (4) Pancytopenia Status: Acute (5) Bradycardia with 31-40 beats per minute Status: Resolved Resolution Date/Time: 11/22/20 @ 08:04 (6) Hypotension Status: Resolved Resolution Date/Time: 11/22/20 @ 08:04 Clinical Quality Measures DVT/VTE Risk/Contraindication: Risk Factor Score Per Nursin RFS Level Per Nursing on Admit: 4+=Very High ELYSSA ANTUNEZ MD Nov 23, 2020 09:05
[2020-11-23] MEDS: D5 1/2 NS W/KCL 20 MEQ/L 1,000 ML IV SCH ×2 (09:56→23:59)
[2020-11-23] MEDS ORDERED: TROUGH ORDER-PHARMACY XX NR (11:00)
[2020-11-23 11:10] VITALS: BP 119/76
[2020-11-23] MEDS: VANCOMYCIN INJECTION 1,000 MG in NS (IVPB) 250 ML IV SCH (13:00)
[2020-11-23 17:00] VITALS: BP 121/81
[2020-11-23] MEDS: ENOXAPARIN 30 MG/0.3 ML (LOVENOX) SYR SC SCH (18:37)
[2020-11-23 19:00] VITALS: BP 111/67
[2020-11-23] MEDS: OLANZapine 5 MG (ZyPREXA) TAB PO SCH (20:30)
[2020-11-23] MEDS: MELATONIN 10 MG TABLET PO SCH (20:31)
[2020-11-24 00:03] VITALS: BP 128/78
[2020-11-24] MEDS: VANCOMYCIN INJECTION 1,000 MG in NS (IVPB) 250 ML IV SCH ×2 (00:17→12:35)
[2020-11-24] MEDS: LORazepam INJ 2 MG/ML (ATIVAN) VIAL IVP PRN ×4 (00:18→18:11)
[2020-11-24] MEDS: HALOPERIDOL 5 MG/ML (HALDOL) VIAL IM PRN (03:07)
[2020-11-24 04:00] VITALS: BP 130/84
[2020-11-24 05:54] LABS: BASOPHILS % (AUTO) 0 % (0-10); EOSINOPHILS % (AUTO) 1 % (0-10); HEMATOCRIT 23 % (40-54); HEMOGLOBIN 7.3 g/dL (13.3-17.7); LYMPHOCYTES # (AUTO) 0.5 10^3/uL (1.0-4.0); LYMPHOCYTES % (AUTO) 15 % (12-44); MEAN CORPUSCULAR HEMOGLOBIN 29 pg (25-34); MEAN CORPUSCULAR HGB CONC 32 g/dL (32-36); MEAN CORPUSCULAR VOLUME 92 fL (80-99); MEAN PLATELET VOLUME 11.2 fL (9.0-12.2); MONOCYTES # (AUTO) 0.2 10^3/uL (0.0-1.0); MONOCYTES % (AUTO) 8 % (0-12); NEUTROPHILS # (AUTO) 2.4 10^3/uL (1.8-7.8); NEUTROPHILS % (AUTO) 76 % (42-75); PLATELET COUNT 121 10^3/uL (130-400); WHITE BLOOD COUNT 3.2 10^3/uL (4.3-11.0)
[2020-11-24 06:08] LABS: CHLORIDE 111 MMOL/L (98-107); POTASSIUM 3.8 MMOL/L (3.6-5.0); SODIUM 141 MMOL/L (135-145)
[2020-11-24 06:09] LABS: CALCIUM 7.9 MG/DL (8.5-10.1); GLUCOSE 124 MG/DL (70-105)
[2020-11-24 06:11] LABS: CARBON DIOXIDE 24 MMOL/L (21-32)
[2020-11-24 06:13] LABS: CREATININE SERUM 0.58 MG/DL (0.60-1.30); GFR ESTIMATED > 60
[2020-11-24 06:14] LABS: BUN/CREATININE RATIO 17
[2020-11-24] MEDS: MULTIVITAMINS LIQUID 15 ML UDC PO SCH (06:37)
[2020-11-24 08:00] VITALS: BP 165/74
[2020-11-24] MEDS: RT-ALBUTEROL INHALER HFA (VENTOLIN HFA) 18 GM IH SCH ×2 (08:06→21:39)
--- NOTE | 2020-11-24 08:32 | Diagnostic Imaging Report ---
EXAM: CHEST 1 VIEW, AP/PA ONLY INDICATION: Dyspnea. COMPARISON: Chest radiograph 11/23/2020. FINDINGS: Dense airspace opacities throughout both lungs are similar to yesterday. Small to moderate right pleural effusion has slightly progressed. Normal heart size. Central pulmonary vascularity is obscured. No acute osseous findings IMPRESSION: 1. Dense airspace opacities throughout both lungs are similar to yesterday. 2. Small to moderate right pleural effusion has mildly progressed. Dictated by: Dictated on workstation # [id number]
[2020-11-24] MEDS: polyethylene glycoL POWDER 17 GM (MIRALAX) PACK PO SCH (10:02)
[2020-11-24] MEDS: PANTOPRAZOLE 40 MG (PROTONIX) VIAL IV SCH (10:03)
[2020-11-24] MEDS ORDERED: TROUGH ORDER-PHARMACY XX NR (11:00)
[2020-11-24] MEDS: DOCUSATE SODIUM 100 MG (COLACE) CAP PO SCH ×2 (11:24→21:45)
[2020-11-24 12:00] VITALS: BP 127/80
[2020-11-24] MEDS: D5 1/2 NS W/KCL 20 MEQ/L 1,000 ML IV SCH (12:35)
--- NOTE | 2020-11-24 14:36 | Progress Note - Hospitalist ---
Subjective HPI/CC On Admission Date Seen by Provider: Nov 24, 2020 Time Seen by Provider: 09:45 Pt is a 65yoCM with a PMH of ID who lives at [place] who presented to the ER due to hypoxia. He was just discharged from the hospital yesterday after being admitted for aspiration pneumonia and PEG tube placement. He completed a week lo ng course of IV abx prior to discharge. He was doing well off oxygen. Today he developed some shortness of breath and hypoxia prompting evaluation in the ER. He was mildly hypoxic at 87& and placed on 2-3lpm NC and was up to 95%. He is unable to provide me any history due to baseline mentation. Subjective/Events-last exam he is sleeping and unresponsive. Objective Exam Vital Signs Vital Signs Date Time Temp Pulse Resp B/P (MAP) Pulse Ox O2 Delivery O2 Flow Rate FiO2 11/24/20 12:28 67 11/24/20 12:00 35.6 20 127/80 (96) 95 High Flow N/C 10.00 Capillary Refill : Less Than 3 SecondsLess Than 3 Seconds General Appearance: No Apparent Distress, Thin Respiratory: No Respiratory Distress, Other (coarse breath sounds bilaterally) Cardiovascular: Regular Rate, Rhythm, No Murmur Gastrointestinal: Normal Bowel Sounds, Soft Extremity: Normal Inspection, Pedal Edema Neurologic/Psychiatric: Other (lethargic, unresponsive) Skin: Normal Color, Warm/Dry Results/Procedures Lab Laboratory Tests 11/24/20 05:45 Patient resulted labs reviewed. Imaging: Reviewed Imaging Report Assessment/Plan Assessment and Plan Assess & Plan/Chief Complaint Acute respiratory failure likely due to aspiration pneumonia MRSE bacteremia Blood cultures positive for Staph epidermidis, MRSE Repeat blood cultures with no growth Continue Vancomycin day 05/12 Add Muxinex Intellectual Disability Dysphagia Severe protein-calorie malnutrition Poor prognosis Continue tube feeds and free water NPO Palliative care consulted, appreciate assistance Anemia Thrombocyotpenia s/p 2 units pRBC Hgb stable, 7.3 this morning Platelets stable, 121 DVT ppx: Lovenox Hypoglycemia, resolved Hypotension, resolved PEG tube malfunction, resolved Bradycardia, resolved Diagnosis/Problems Diagnosis/Problems (1) Bacteremia due to methicillin resistant Staphylococcus epidermidis Status: Acute (2) Aspiration pneumonia Status: Acute (3) Intellectual disability Status: Chronic (4) Pancytopenia Status: Acute (5) Bradycardia with 31-40 beats per minute Status: Resolved Resolution Date/Time: 11/22/20 @ 08:04 (6) Hypotension Status: Resolved Resolution Date/Time: 11/22/20 @ 08:04 Clinical Quality Measures DVT/VTE Risk/Contraindication: Risk Factor Score Per Nursin RFS Level Per Nursing on Admit: 4+=Very High ELYSSA ANTUNEZ MD Nov 24, 2020 14:36
[2020-11-24] MEDS ORDERED: guaiFENesin (MUCINEX) 600 MG TAB PO NR (14:45)
[2020-11-24 15:56] VITALS: BP 121/80
[2020-11-24] MEDS: ENOXAPARIN 30 MG/0.3 ML (LOVENOX) SYR SC SCH (18:11)
[2020-11-24 20:59] VITALS: BP 127/79
[2020-11-24] MEDS: MELATONIN 10 MG TABLET PO SCH (21:46)
[2020-11-24] MEDS: OLANZapine 5 MG (ZyPREXA) TAB PO SCH (21:46)
[2020-11-24] MEDS: guaiFENesin (MUCINEX) 600 MG TAB PO SCH (21:46)
[2020-11-25 00:18] VITALS: BP 115/72
[2020-11-25] MEDS: D5 1/2 NS W/KCL 20 MEQ/L 1,000 ML IV SCH (01:20)
[2020-11-25] MEDS: VANCOMYCIN INJECTION 1,000 MG in NS (IVPB) 250 ML IV SCH ×3 (01:20→23:26)
[2020-11-25] MEDS: LORazepam INJ 2 MG/ML (ATIVAN) VIAL IVP PRN ×3 (02:17→13:44)
[2020-11-25 04:15] VITALS: BP 131/79
[2020-11-25 05:06] LABS: BASOPHILS % (AUTO) 0 % (0-10); EOSINOPHILS % (AUTO) 1 % (0-10); HEMATOCRIT 24 % (40-54); HEMOGLOBIN 7.5 g/dL (13.3-17.7); LYMPHOCYTES # (AUTO) 0.5 10^3/uL (1.0-4.0); LYMPHOCYTES % (AUTO) 13 % (12-44); MEAN CORPUSCULAR HEMOGLOBIN 29 pg (25-34); MEAN CORPUSCULAR HGB CONC 32 g/dL (32-36); MEAN CORPUSCULAR VOLUME 92 fL (80-99); MEAN PLATELET VOLUME 11.2 fL (9.0-12.2); MONOCYTES # (AUTO) 0.3 10^3/uL (0.0-1.0); MONOCYTES % (AUTO) 8 % (0-12); NEUTROPHILS # (AUTO) 3.1 10^3/uL (1.8-7.8); NEUTROPHILS % (AUTO) 78 % (42-75); PLATELET COUNT 131 10^3/uL (130-400); WHITE BLOOD COUNT 3.9 10^3/uL (4.3-11.0)
[2020-11-25 05:36] LABS: BUN/CREATININE RATIO 19; CALCIUM 8.2 MG/DL (8.5-10.1); CARBON DIOXIDE 28 MMOL/L (21-32); CHLORIDE 110 MMOL/L (98-107); CREATININE SERUM 0.58 MG/DL (0.60-1.30); GFR ESTIMATED > 60; GLUCOSE 111 MG/DL (70-105); POTASSIUM 4.1 MMOL/L (3.6-5.0); SODIUM 141 MMOL/L (135-145)
[2020-11-25] MEDS: MULTIVITAMINS LIQUID 15 ML UDC PO SCH (06:09)
[2020-11-25] MEDS ORDERED: KCL 20 MEQ TAB (K-DUR) PO NR (07:30)
[2020-11-25] MEDS ORDERED: FUROSEMIDE 40 MG/4 ML INJ (LASIX) IVP NR (07:30)
--- NOTE | 2020-11-25 07:34 | Pulmonary Progress Note ---
Subjective Time Seen by a Provider: 07:25 Subjective/Events-last exam PT is requiring more oxygen. CXR and labs reviewed. Sepsis Event Evaluation Height, Weight, BMI Height: 5'6.00" Weight: 139lbs. 0.0oz. 63.343133sz; 134.37 BMI Method:Actual Exam Exam Vital Signs Date Time Temp Pulse Resp B/P (MAP) Pulse Ox O2 Delivery O2 Flow Rate FiO2 11/25/20 04:15 36.0 78 22 131/79 (96) 93 High Flow N/C 10.00 11/25/20 01:00 75 11/25/20 00:18 35.8 70 24 115/72 (86) 93 High Flow N/C 10.00 11/24/20 21:39 High Flow N/C 6.00 11/24/20 20:59 36.0 71 20 127/79 (95) 95 High Flow N/C 10.00 11/24/20 20:31 High Flow N/C 7.00 11/24/20 19:00 69 11/24/20 15:56 36.1 75 16 121/80 (94) 93 High Flow N/C 10.00 11/24/20 12:28 67 11/24/20 12:00 35.6 63 20 127/80 (96) 95 High Flow N/C 10.00 11/24/20 09:00 High Flow N/C 12.00 11/24/20 08:06 98 High Flow N/C 6.00 11/24/20 08:00 35.2 80 20 165/74 (104) 94 High Flow N/C 10.00 I & O 11/25/20 07:00 Intake Total 0 ml Output Total 1125 ml Balance -1125 ml Height & Weight Height: 5'6.00" Weight: 139lbs. 0.0oz. 63.615878id; 134.37 BMI Method:Actual General Appearance: No Apparent Distress, Thin HEENT: PERRL/EOMI, Other (dry mucous membranes) Neck: Normal Inspection, Non Tender Respiratory: No Respiratory Distress, Other (coarse breath sounds bilaterally) Cardiovascular: Regular Rate, Rhythm, No Murmur Capillary Refill: Less Than 3 Seconds Gastrointestinal: non tender, soft Extremity: Normal Inspection, Pedal Edema Neurologic/Psychiatric: Other (lethargic, unresponsive) Skin: Normal Color, Warm/Dry Lymphatic: No Adenopathy Results Lab Laboratory Tests 11/24/20 05:45 11/25/20 04:25 Assessment/Plan Assessment/Plan Acute respiratory failure-- worsening -CXR shows extensive infiltration bilaterally -Repeat CXR -Give 40mg of Lasix x 1 and check BNP -Repeat BNP, PCT, and DDIMer -Pt is only requiring 10 liters of oxygen -COVID is negative -Cultures pending echocardiogram 55-60% Sepis secondary to bacteremia with staph epi -Currently on Vanco Intellectual Disability Dysphagia PEM- moderate Hypoglycemia PEG placed last week -Peg tube became dislodged today and then replaced TF with Jevity 1.5 at 45ml/hr with 125ml Q4 Anemia with Thrombocyotpenia Monitor CHRISTIANO DARLING DO Nov 25, 2020 07:34
[2020-11-25 07:49] VITALS: BP 117/71
[2020-11-25] MEDS ORDERED: POTASSIUM BICARB 20 MEQ (EFFER-K) TABLET PO NR (08:43)
[2020-11-25] MEDS: polyethylene glycoL POWDER 17 GM (MIRALAX) PACK PO SCH (09:13)
[2020-11-25] MEDS: guaiFENesin (MUCINEX) 600 MG TAB PO SCH ×2 (09:13→21:29)
[2020-11-25] MEDS: PANTOPRAZOLE 40 MG (PROTONIX) VIAL IV SCH (09:13)
[2020-11-25] MEDS: DOCUSATE SODIUM 100 MG (COLACE) CAP PO SCH ×2 (09:16→21:29)
[2020-11-25] MEDS: RT-ALBUTEROL INHALER HFA (VENTOLIN HFA) 18 GM IH SCH ×2 (09:26→18:20)
--- NOTE | 2020-11-25 10:41 | Progress Note - Hospitalist ---
Subjective HPI/CC On Admission Date Seen by Provider: Nov 25, 2020 Time Seen by Provider: 10:35 Pt is a 65yoCM with a PMH of ID who lives at [place] who presented to the ER due to hypoxia. He was just discharged from the hospital yesterday after being admitted for aspiration pneumonia and PEG tube placement. He completed a week lo ng course of IV abx prior to discharge. He was doing well off oxygen. Today he developed some shortness of breath and hypoxia prompting evaluation in the ER. He was mildly hypoxic at 87& and placed on 2-3lpm NC and was up to 95%. He is unable to provide me any history due to baseline mentation. Subjective/Events-last exam Pt laying in bed. Minimally responsive. RN at bedside giving tube feeds. Still on 10lpm. I called and spoke with his guardian, his brother Maile about current status. brother status he's happy to hear he is out of the ICU and is understanding of his issues with aspiration. We discussed his prison prognosis is poor given the chronic aspiration and recurrent pneumonia. Informed Maile that I was still worried that he may not survive this stay but that one of these times he will likely not survive one of these episodes. He expressed understanding. Is electing to keep him a full code for now but expressed awareness that if he codes he likely won't survive. Objective Exam Vital Signs Vital Signs Date Time Temp Pulse Resp B/P (MAP) Pulse Ox O2 Delivery O2 Flow Rate FiO2 11/25/20 07:49 36.4 89 24 117/71 (86) 96 High Flow N/C 10.00 Capillary Refill : Less Than 3 SecondsLess Than 3 Seconds General Appearance: No Apparent Distress, Chronically ill Respiratory: Lungs Clear, No Respiratory Distress Cardiovascular: Regular Rate, Rhythm, No Murmur Gastrointestinal: Normal Bowel Sounds, Soft Neurologic/Psychiatric: Alert, Oriented x3 Results/Procedures Lab Laboratory Tests 11/25/20 04:25 Patient resulted labs reviewed. Imaging: Reviewed Imaging Report Assessment/Plan Assessment and Plan Assess & Plan/Chief Complaint Acute respiratory failure likely due to aspiration pneumonia MRSE bacteremia Blood cultures positive for Staph epidermidis, MRSE Repeat blood cultures with no growth Continue Vancomycin day 7/14 Mucinex BNP was up slightly- Lasix given this AM Intellectual Disability Dysphagia Severe protein-calorie malnutrition Poor prognosis Continue tube feeds and free water Speech consulted Palliative care consulted, appreciate assistance To remain a full code Anemia Thrombocyotpenia s/p 2 units pRBC Hgb stable, 7.5 Platelets stable, 131 DVT ppx: Lovenox Hypoglycemia, resolved Hypotension, resolved PEG tube malfunction, resolved Bradycardia, resolved Diagnosis/Problems Diagnosis/Problems (1) Aspiration pneumonia Status: Acute (2) Gastritis Status: Acute (3) Pancytopenia Status: Acute (4) Intellectual disability Status: Chronic Clinical Quality Measures DVT/VTE Risk/Contraindication: Risk Factor Score Per Nursin RFS Level Per Nursing on Admit: 4+=Very High BETH ELENA MD Nov 25, 2020 10:41
[2020-11-25 11:09] VITALS: BP 112/72
[2020-11-25] MEDS: guaiFENesin/DM (ROBITUSSIN DM) 10 ML UDC PO PRN (13:44)
--- NOTE | 2020-11-25 14:35 | ST Dysphagia Evaluation ---
Speech Evaluation-General Medical Diagnosis Pneumonia Onset Date: Nov 18, 2020 Therapy Diagnosis Therapy Diagnosis: Oropharyngeal Dysphagia Precautions Precautions: Aspiration Precautions/Isolations: Aspiration Referral Referring Physician: Dr. Gage Medical History Pertinent Medical History: GERD Social History Home: Speech PLF/Current-Dysphagia Prior Level of Function Patient lives in a residential home where his needs are met by staff. Subjective Patient continues to be nonverbal, eyes were partially open, noted to be breathing very hard. Cognitive Status Patient Orientation: Unable to Assess, Non-Verbal/Aphasic Oral Motor Skills Dentition: Edentalous Ability to Follow Directions: Unable Oral Expression Ability: Unable Other Contributing Factors: PEG Tube Oral-Facial Assessment Lingual Protrusion: Abnormal Lingual ROM: Abnormal Lingual Strength: Abnormal Volitional Dry Swallow: No Voluntary Cough: No Can Clear Throat Volitionally: No Dysphagia Evaluation Patient is unable to consume anything at this time. Unable to take anything by mouth. Pharyngeal phase was not able to be assessed. Dietary Recommendations: NPO Liquid Recommendations: NPO Dysphagia Evaluation Summary Patient is an admit from a residential home. Patient has been admitted to the hospital multiple times in the past few months due to aspiration pneumonia. Patient had a PEG tube placed within the past month. Patient continues to be unable to complete evaluation due to decreased responsive state. Patient was presented a few drops of water via spoon, however patient was unable to retrieve from the spoon and the liquids ran off his lips. Patient is to remain NPO due to his current state he is unsafe for any oral intake. Barriers to Learning Patient is unable to communicate Speech-Plan Patient/Family Goals Patient/Family Goals: Patient will return to the residential home upon discharge. Treatment Plan Speech Therapy Treatment Plan: Discontinue ST Treatment Duration: Nov 18, 2020 Frequency: 1 time per week Estimated Hrs Per Day: .25 hour per day Rehab Potential: Guarded Barriers to Learning: Patient is unable to communicate Pt/Family Agrees to Plan: Yes Safety Risks/Education Response to Teaching: Reinforcement Needed Education Topics Provided: Safety of oral intake Time Speech Therapy Time In: 14:40 Speech Therapy Time Out: 14:55 Total Billed Time: 15 Billed Treatment Time 1, [facility] [address] Nov 25, 2020 14:35
[2020-11-25 16:26] VITALS: BP 91/57
[2020-11-25] MEDS: ENOXAPARIN 40 MG/0.4 ML (LOVENOX) SYR SC SCH (18:50)
[2020-11-25 19:49] VITALS: BP 107/57
[2020-11-25] MEDS: MELATONIN 10 MG TABLET PO SCH (21:29)
[2020-11-25] MEDS: OLANZapine 5 MG (ZyPREXA) TAB PO SCH (21:29)
[2020-11-26] VITALS: BP 99/62
[2020-11-26] MEDS: LORazepam INJ 2 MG/ML (ATIVAN) VIAL IVP PRN ×2 (00:15→20:59)
[2020-11-26 03:55] VITALS: BP 102/64
[2020-11-26] MEDS: MULTIVITAMINS LIQUID 15 ML UDC PO SCH (06:22)
[2020-11-26 06:27] LABS: BUN/CREATININE RATIO 21; CALCIUM 8.3 MG/DL (8.5-10.1); CARBON DIOXIDE 33 MMOL/L (21-32); CHLORIDE 107 MMOL/L (98-107); CREATININE SERUM 0.62 MG/DL (0.60-1.30); GFR ESTIMATED > 60; GLUCOSE 69 MG/DL (70-105); POTASSIUM 3.7 MMOL/L (3.6-5.0); SODIUM 143 MMOL/L (135-145)
[2020-11-26] MEDS: RT-ALBUTEROL INHALER HFA (VENTOLIN HFA) 18 GM IH SCH ×2 (07:01→18:36)
--- NOTE | 2020-11-26 07:05 | Pulmonary Progress Note ---
Subjective Time Seen by a Provider: 07:01 Subjective/Events-last exam No complications noted. Sepsis Event Evaluation Height, Weight, BMI Height: 5'6.00" Weight: 139lbs. 0.0oz. 63.501784rw; 134.37 BMI Method:Actual Exam Exam Vital Signs Date Time Temp Pulse Resp B/P (MAP) Pulse Ox O2 Delivery O2 Flow Rate FiO2 11/26/20 03:55 35.7 68 17 102/64 (77) 95 High Flow N/C 10.00 11/26/20 01:01 72 11/26/20 00:00 35.7 67 19 99/62 (74) 96 High Flow N/C 12.00 11/25/20 20:18 High Flow N/C 12.00 11/25/20 19:49 35.7 73 24 107/57 (74) 96 High Flow N/C 12.00 11/25/20 19:00 79 11/25/20 18:21 92 High Flow N/C 11.00 11/25/20 16:26 35.7 91 20 91/57 (68) 95 High Flow N/C 10.00 11/25/20 13:57 71 11/25/20 12:31 71 11/25/20 11:09 36.2 76 22 112/72 (85) 94 High Flow N/C 10.00 11/25/20 10:59 98 High Flow N/C 6.00 11/25/20 09:00 High Flow N/C 7.00 11/25/20 07:49 36.4 89 24 117/71 (86) 96 High Flow N/C 10.00 I & O 11/26/20 07:00 Intake Total 2220 ml Output Total 5300 ml Balance -3080 ml Height & Weight Height: 5'6.00" Weight: 139lbs. 0.0oz. 63.091282ll; 134.37 BMI Method:Actual General Appearance: No Apparent Distress, Chronically ill HEENT: PERRL/EOMI, Other Neck: Normal Inspection, Non Tender Respiratory: Lungs Clear, No Respiratory Distress Cardiovascular: Regular Rate, Rhythm, No Murmur Capillary Refill: Less Than 3 Seconds Gastrointestinal: non tender, soft Extremity: Normal Inspection, Pedal Edema Neurologic/Psychiatric: Alert, Oriented x3 Skin: Normal Color, Warm/Dry Lymphatic: No Adenopathy Results Lab Laboratory Tests 11/25/20 04:25 11/26/20 05:32 Assessment/Plan Assessment/Plan Acute respiratory failure-- worsening -CXR shows extensive infiltration bilaterally -Repeat CXR shows improvement. -Cont Lasix BNP is eleveated at 298 -Pt is only requiring 10 liters of oxygen -COVID is negative -Cultures pending echocardiogram 55-60% Sepis secondary to bacteremia with staph epi -Currently on Vanco Intellectual Disability Dysphagia PEM- moderate Hypoglycemia PEG placed last week -Peg tube became dislodged today and then replaced TF with Jevity 1.5 at 45ml/hr with 125ml Q4 Anemia with Thrombocyotpenia Monitor CHRISTIANO DARLING DO Nov 26, 2020 07:05
[2020-11-26 08:00] VITALS: BP 120/60
--- NOTE | 2020-11-26 08:50 | Diagnostic Imaging Report ---
INDICATION: Dyspnea. TECHNIQUE: Single view chest 4:31 AM. CORRELATION STUDY: 11/24/2020 FINDINGS: Extensive bilateral pulmonary opacities do persist. Perhaps minimally improved. A moderate right pleural effusion. Heart size and mediastinum are generally stable. Vasculature is largely obscured. IMPRESSION: 1. Extensive, dense consolidation throughout both lung liu persisting but overall perhaps slightly improved. Moderate right pleural effusion persisting. Dictated by: Dictated on workstation # [id number]
[2020-11-26] MEDS ORDERED: FUROSEMIDE 40 MG/4 ML INJ (LASIX) IVP SCH (09:00)
[2020-11-26] MEDS: guaiFENesin (MUCINEX) 600 MG TAB PO SCH ×2 (09:09→20:56)
[2020-11-26] MEDS: PANTOPRAZOLE 40 MG (PROTONIX) VIAL IV SCH (09:09)
[2020-11-26] MEDS: polyethylene glycoL POWDER 17 GM (MIRALAX) PACK PO SCH (09:09)
[2020-11-26] MEDS: DOCUSATE SODIUM 100 MG (COLACE) CAP PO SCH ×2 (09:09→20:58)
--- NOTE | 2020-11-26 11:57 | Progress Note - Hospitalist ---
Subjective HPI/CC On Admission Date Seen by Provider: Nov 26, 2020 Time Seen by Provider: 11:52 Pt is a 65yoCM with a PMH of ID who lives at [place] who presented to the ER due to hypoxia. He was just discharged from the hospital yesterday after being admitted for aspiration pneumonia and PEG tube placement. He completed a week lo ng course of IV abx prior to discharge. He was doing well off oxygen. Today he developed some shortness of breath and hypoxia prompting evaluation in the ER. He was mildly hypoxic at 87& and placed on 2-3lpm NC and was up to 95%. He is unable to provide me any history due to baseline mentation. Subjective/Events-last exam Pt laying in bed. Resting comfortably. Nasal cannula had follow off and I checked sats he was 85%. I placed it back on at 10lpm and he immediately mindy to 94%. I titrated down to 9lpm and he tolerated that well. Objective Exam Vital Signs Vital Signs Date Time Temp Pulse Resp B/P (MAP) Pulse Ox O2 Delivery O2 Flow Rate FiO2 11/26/20 08:00 35.3 80 18 120/60 (80) 93 High Flow N/C 10.00 Capillary Refill : Less Than 3 SecondsLess Than 3 Seconds General Appearance: No Apparent Distress, Chronically ill, Cachetic Respiratory: Lungs Clear, No Respiratory Distress Cardiovascular: Regular Rate, Rhythm, No Murmur Gastrointestinal: Normal Bowel Sounds, Soft Neurologic/Psychiatric: Other (sleeping soundly, did try to remove nasal cannula at first but calmed ) Results/Procedures Lab Laboratory Tests 11/26/20 05:32 Patient resulted labs reviewed. Imaging: Reviewed Imaging Report Assessment/Plan Assessment and Plan Assess & Plan/Chief Complaint Acute respiratory failure likely due to aspiration pneumonia MRSE bacteremia Blood cultures positive for Staph epidermidis, MRSE Repeat blood cultures with no growth Continue Vancomycin day 07/12 Mucinex Intellectual Disability Dysphagia Severe protein-calorie malnutrition Poor prognosis Continue tube feeds and free water per dietary recs Speech consulted Palliative care consulted, appreciate assistance To remain a full code Anemia Thrombocyotpenia s/p 2 units pRBC Hgb stable, 7.5 Platelets stable DVT ppx: Lovenox Hypoglycemia, resolved Hypotension, resolved PEG tube malfunction, resolved Bradycardia, resolved Diagnosis/Problems Diagnosis/Problems (1) Aspiration pneumonia Status: Acute (2) Gastritis Status: Acute (3) Pancytopenia Status: Acute (4) Intellectual disability Status: Chronic Clinical Quality Measures DVT/VTE Risk/Contraindication: Risk Factor Score Per Nursin RFS Level Per Nursing on Admit: 4+=Very High BETH ELENA MD Nov 26, 2020 11:57
[2020-11-26 12:00] VITALS: BP 110/56
[2020-11-26] MEDS: VANCOMYCIN INJECTION 1,000 MG in NS (IVPB) 250 ML IV SCH (13:22)
[2020-11-26 15:52] VITALS: BP 132/76
[2020-11-26] MEDS: ENOXAPARIN 40 MG/0.4 ML (LOVENOX) SYR SC SCH (18:27)
[2020-11-26 19:44] VITALS: BP 94/59
[2020-11-26] MEDS: MELATONIN 10 MG TABLET PO SCH (20:56)
[2020-11-26] MEDS: OLANZapine 5 MG (ZyPREXA) TAB PO SCH (20:59)
[2020-11-27] VITALS (10 sets, daily range): BP systolic 63–111; BP diastolic 55–69
[2020-11-27] MEDS: VANCOMYCIN INJECTION 1,000 MG in NS (IVPB) 250 ML IV SCH ×2 (00:22→13:16)
[2020-11-27] MEDS: LORazepam INJ 2 MG/ML (ATIVAN) VIAL IVP PRN (01:14)
[2020-11-27 05:41] LABS: CHLORIDE 101 MMOL/L (98-107); POTASSIUM 3.7 MMOL/L (3.6-5.0); SODIUM 138 MMOL/L (135-145)
[2020-11-27 05:42] LABS: CALCIUM 8.6 MG/DL (8.5-10.1)
[2020-11-27 05:43] LABS: GLUCOSE 71 MG/DL (70-105)
[2020-11-27 05:44] LABS: CARBON DIOXIDE 29 MMOL/L (21-32)
[2020-11-27 05:47] LABS: CREATININE SERUM 0.64 MG/DL (0.60-1.30); GFR ESTIMATED > 60
[2020-11-27 05:48] LABS: BUN/CREATININE RATIO 23
[2020-11-27] MEDS: MULTIVITAMINS LIQUID 15 ML UDC PO SCH (06:09)
[2020-11-27] MEDS ORDERED: ALBUMIN 25% 25 GM/100 ML 100 ML IV NR (07:30)
--- NOTE | 2020-11-27 07:30 | Pulmonary Progress Note ---
Subjective Time Seen by a Provider: 07:25 Subjective/Events-last exam PT is still requiring 10liters of oxygen NC. Sepsis Event Evaluation Height, Weight, BMI Height: 5'6.00" Weight: 139lbs. 0.0oz. 63.029775zu; 134.37 BMI Method:Actual Exam Exam Vital Signs Date Time Temp Pulse Resp B/P (MAP) Pulse Ox O2 Delivery O2 Flow Rate FiO2 11/27/20 04:50 79 22 92/55 (67) High Flow N/C 10.00 11/27/20 03:58 36.0 76 17 63/55 (58) 92 High Flow N/C 10.00 11/27/20 01:00 73 11/27/20 00:00 35.8 74 19 96/55 (69) 94 High Flow N/C 10.00 11/26/20 21:00 High Flow N/C 10.00 11/26/20 19:44 36.1 78 20 94/59 (71) 95 High Flow N/C 10.00 11/26/20 19:00 79 11/26/20 18:36 93 High Flow N/C 10.00 11/26/20 15:52 35.4 75 18 132/76 (94) 98 High Flow N/C 10.00 11/26/20 12:38 73 11/26/20 12:00 36.0 68 18 110/56 (74) 93 High Flow N/C 10.00 11/26/20 09:00 High Flow N/C 12.00 11/26/20 08:00 35.3 80 18 120/60 (80) 93 High Flow N/C 10.00 I & O 11/27/20 07:00 Intake Total 0 ml Output Total 6225 ml Balance -6225 ml Height & Weight Height: 5'6.00" Weight: 139lbs. 0.0oz. 63.629267rc; 134.37 BMI Method:Actual General Appearance: No Apparent Distress, Chronically ill, Cachetic HEENT: PERRL/EOMI, Other Neck: Normal Inspection, Non Tender Respiratory: Lungs Clear, No Respiratory Distress Cardiovascular: Regular Rate, Rhythm, No Murmur Capillary Refill: Less Than 3 Seconds Gastrointestinal: non tender, soft Extremity: Normal Inspection, Pedal Edema Neurologic/Psychiatric: Other (sleeping soundly, did try to remove nasal cannu la at first but calmed ) Skin: Normal Color, Warm/Dry Lymphatic: No Adenopathy Results Lab Laboratory Tests 11/26/20 05:32 11/27/20 04:45 Assessment/Plan Assessment/Plan Acute respiratory failure-- worsening -CXR Reviewed -Repeat BNP -Hold Lasix secondary to hypotension -Check ABG -10 liters of oxygen -COVID is negative -Cultures pending echocardiogram 55-60% Hypotension -Monitor -Hold Lasix -Will give Albumin 25gms x 1 Hypokalemia -Monitor Anemia -Transfuse 1 unit of PRBC -Monitor Agitation -Pt was given ativan last night Sepsis secondary to bacteremia with staph epi -Currently on Vanco Intellectual Disability Dysphagia PEM- moderate Hypoglycemia PEG placed last week -Peg tube became dislodged today and then replaced TF with Jevity 1.5 at 45ml/hr with 125ml Q4 Anemia with Thrombocyotpenia Monitor CHRISTIANO DARLING DO Nov 27, 2020 07:30
[2020-11-27 07:56] LABS: BASOPHILS % (AUTO) 0 % (0-10); EOSINOPHILS # (AUTO) 0.1 10^3/uL (0.0-0.3); EOSINOPHILS % (AUTO) 1 % (0-10); HEMATOCRIT 22 % (40-54); LYMPHOCYTES # (AUTO) 0.5 10^3/uL (1.0-4.0); LYMPHOCYTES % (AUTO) 6 % (12-44); MEAN CORPUSCULAR HEMOGLOBIN 30 pg (25-34); MEAN CORPUSCULAR HGB CONC 32 g/dL (32-36); MEAN CORPUSCULAR VOLUME 92 fL (80-99); MEAN PLATELET VOLUME 11.1 fL (9.0-12.2); MONOCYTES # (AUTO) 0.6 10^3/uL (0.0-1.0); MONOCYTES % (AUTO) 7 % (0-12); NEUTROPHILS # (AUTO) 7.5 10^3/uL (1.8-7.8); NEUTROPHILS % (AUTO) 86 % (42-75); PLATELET COUNT 137 10^3/uL (130-400); WHITE BLOOD COUNT 8.7 10^3/uL (4.3-11.0)
[2020-11-27 08:04] LABS: HEMOGLOBIN 6.9 g/dL (13.3-17.7)
[2020-11-27] MEDS ORDERED: NS IV 500 ML 500 ML ONE (08:07)
[2020-11-27] MEDS: POTASSIUM CL 10MEQ/50ML IVPB 50 ML IV SCH ×4 (08:11→11:28)
[2020-11-27] MEDS: guaiFENesin/DM (ROBITUSSIN DM) 10 ML UDC PO PRN (08:12)
[2020-11-27] MEDS: guaiFENesin (MUCINEX) 600 MG TAB PO SCH ×2 (08:12→22:31)
[2020-11-27] MEDS: PANTOPRAZOLE 40 MG (PROTONIX) VIAL IV SCH (08:12)
[2020-11-27] MEDS: polyethylene glycoL POWDER 17 GM (MIRALAX) PACK PO SCH (08:12)
[2020-11-27] MEDS: DOCUSATE SODIUM 100 MG (COLACE) CAP PO SCH ×2 (08:12→22:35)
[2020-11-27 08:17] LABS: ANISOCYTOSIS MODERATE; BAND NEUTROPHILS 27 %; BASOPHILS % (MANUAL) 1 %; LYMPHOCYTES % (MANUAL) 7 %; MONOCYTES % (MANUAL) 6 %; NEUTROPHILS % (MANUAL) 59 %
[2020-11-27 08:18] LABS: HYPOCHROMASIA MODERATE
--- NOTE | 2020-11-27 08:22 | Diagnostic Imaging Report ---
INDICATION: Dyspnea COMPARISON STUDY: Chest from yesterday. FINDINGS: Frontal view chest demonstrates diffuse bilateral infiltrates which have increased in density. There is some sparing of the right apex. A small right pleural effusion is stable. IMPRESSION: There are increasing diffuse bilateral pulmonary infiltrates with stable right pleural effusion. Dictated by: Dictated on workstation # [id number]
[2020-11-27] MEDS: RT-ALBUTEROL INHALER HFA (VENTOLIN HFA) 18 GM IH SCH ×2 (08:44→19:39)
[2020-11-27 08:47] LABS: ABG BASE EXCESS 8.4 MMOL/L (-2.5-2.5); ABG OXYGEN SATURATION 99 % (94-100); ABG PCO2 41 MMHG (35-45); ABG PO2 92 MMHG (79-93); ABG TCO2 33.6 MMOL/L (21.0-31.0); ALLENS TEST POSITIVE; INSPIRED O2 10 L; PATIENT TEMP 36; VENTILATOR NO
--- NOTE | 2020-11-27 10:27 | Progress Note - Hospitalist ---
Subjective HPI/CC On Admission Date Seen by Provider: Nov 27, 2020 Time Seen by Provider: 10:24 Pt is a 65yoCM with a PMH of ID who lives at [place] who presented to the ER due to hypoxia. He was just discharged from the hospital yesterday after being admitted for aspiration pneumonia and PEG tube placement. He completed a week lo ng course of IV abx prior to discharge. He was doing well off oxygen. Today he developed some shortness of breath and hypoxia prompting evaluation in the ER. He was mildly hypoxic at 87& and placed on 2-3lpm NC and was up to 95%. He is unable to provide me any history due to baseline mentation. Subjective/Events-last exam Pt more alert today. When I walked in room he opened his eyes and said "bye bye!" otherwise did not speak but more alert. Objective Exam Vital Signs Vital Signs Date Time Temp Pulse Resp B/P (MAP) Pulse Ox O2 Delivery O2 Flow Rate FiO2 11/27/20 08:45 94 High Flow N/C 10.00 11/27/20 04:50 79 22 92/55 (67) 11/27/20 03:58 36.0 Capillary Refill : Less Than 3 SecondsLess Than 3 Seconds General Appearance: Chronically ill, Thin Respiratory: Decreased Breath Sounds, Other (on 6lpm NC) Cardiovascular: Regular Rate, Rhythm, No Murmur Neurologic/Psychiatric: Alert (more responsive today) Results/Procedures Lab Laboratory Tests 11/27/20 04:45 11/27/20 07:37 Patient resulted labs reviewed. Imaging: Reviewed Imaging Report Assessment/Plan Assessment and Plan Assess & Plan/Chief Complaint Acute respiratory failure likely due to aspiration pneumonia MRSE bacteremia Blood cultures positive for Staph epidermidis, MRSE Repeat blood cultures with no growth Continue Vancomycin day 08/12 Mucinex Intellectual Disability Dysphagia Severe protein-calorie malnutrition Poor prognosis Continue tube feeds and free water per dietary recs Speech consulted, hopefully will have better evaluation as more alert today Palliative care consulted, appreciate assistance To remain a full code Anemia Thrombocyotpenia s/p 2 units pRBC Hgb stable, 6.9, 1 unit ordered Platelets stable DVT ppx: Lovenox Hypoglycemia, resolved Hypotension, resolved PEG tube malfunction, resolved Bradycardia, resolved Diagnosis/Problems Diagnosis/Problems (1) Aspiration pneumonia Status: Acute (2) Gastritis Status: Acute (3) Pancytopenia Status: Acute (4) Intellectual disability Status: Chronic Clinical Quality Measures DVT/VTE Risk/Contraindication: Risk Factor Score Per Nursin RFS Level Per Nursing on Admit: 4+=Very High BETH ELENA MD Nov 27, 2020 10:27
[2020-11-27] MEDS ORDERED: NS IV 500 ML 500 ML IV SCH (13:45)
[2020-11-27] MEDS: ENOXAPARIN 40 MG/0.4 ML (LOVENOX) SYR SC SCH (17:09)
[2020-11-27] MEDS: MELATONIN 10 MG TABLET PO SCH (22:31)
[2020-11-27] MEDS: OLANZapine 5 MG (ZyPREXA) TAB PO SCH (22:31)
[2020-11-28] VITALS (7 sets, daily range): BP systolic 84–118; BP diastolic 45–60
[2020-11-28] MEDS: VANCOMYCIN INJECTION 1,000 MG in NS (IVPB) 250 ML IV SCH ×3 (01:53→23:45)
[2020-11-28] MEDS: MULTIVITAMINS LIQUID 15 ML UDC PO SCH (05:59)
[2020-11-28 06:52] LABS: CHLORIDE 103 MMOL/L (98-107); POTASSIUM 4.2 MMOL/L (3.6-5.0); SODIUM 137 MMOL/L (135-145)
[2020-11-28 06:53] LABS: CALCIUM 8.7 MG/DL (8.5-10.1)
[2020-11-28 06:54] LABS: GLUCOSE 95 MG/DL (70-105)
[2020-11-28 06:55] LABS: CARBON DIOXIDE 26 MMOL/L (21-32)
[2020-11-28 06:58] LABS: BUN/CREATININE RATIO 21; GFR ESTIMATED > 60
[2020-11-28] MEDS: RT-ALBUTEROL INHALER HFA (VENTOLIN HFA) 18 GM IH SCH ×2 (07:50→20:20)
--- NOTE | 2020-11-28 08:42 | Pulmonary Progress Note ---
Subjective Time Seen by a Provider: 08:38 Subjective/Events-last exam No complications noted. Sepsis Event Evaluation Height, Weight, BMI Height: 5'6.00" Weight: 139lbs. 0.0oz. 63.367255xm; 134.37 BMI Method:Actual Exam Exam Vital Signs Date Time Temp Pulse Resp B/P (MAP) Pulse Ox O2 Delivery O2 Flow Rate FiO2 11/28/20 08:00 36.3 79 20 94/60 (71) 90 High Flow N/C 7.00 11/28/20 07:00 75 11/28/20 03:48 36.0 74 22 97/58 (71) 95 High Flow N/C 7.00 11/28/20 01:00 75 11/28/20 00:00 36.2 78 20 91/52 (65) 91 High Flow N/C 7.00 11/27/20 22:31 High Flow N/C 7.00 11/27/20 20:04 35.9 78 22 111/69 (83) 95 High Flow N/C 8.00 11/27/20 19:39 97 High Flow N/C 7.00 11/27/20 19:00 76 11/27/20 18:02 36.4 80 20 103/61 97 High Flow N/C 7.00 11/27/20 16:09 36.4 77 22 99/62 (74) 97 High Flow N/C 8.00 11/27/20 15:49 36.2 79 22 101/68 94 High Flow N/C 7.00 11/27/20 15:27 36.4 77 22 99/62 93 Nasal Cannula 7.00 11/27/20 12:42 80 11/27/20 12:00 35.9 77 22 109/69 (82) 97 High Flow N/C 10.00 11/27/20 08:45 94 High Flow N/C 10.00 I & O 11/28/20 07:00 Intake Total 300 ml Output Total 1400 ml Balance -1100 ml Height & Weight Height: 5'6.00" Weight: 139lbs. 0.0oz. 63.587006hk; 134.37 BMI Method:Actual General Appearance: Chronically ill, Thin HEENT: PERRL/EOMI, Other Neck: Normal Inspection, Non Tender Respiratory: Decreased Breath Sounds, Other (on 6lpm NC) Cardiovascular: Regular Rate, Rhythm, No Murmur Capillary Refill: Less Than 3 Seconds Gastrointestinal: non tender, soft Extremity: Normal Inspection, Pedal Edema Neurologic/Psychiatric: Alert (more responsive today) Skin: Normal Color, Warm/Dry Lymphatic: No Adenopathy Results Lab Laboratory Tests 11/27/20 04:45 11/27/20 07:37 11/27/20 18:40 11/28/20 05:40 Assessment/Plan Assessment/Plan Acute respiratory failure--improved oxygenation -7 liters of oxygen -COVID is negative -Cultures pending echocardiogram 55-60% Pulmonary edema -Will give lasix and albumin together. -Repeat PCT Hypotension -Monitor -Will give Albumin 25gms x 1 Anemia -s/p 1 unit of PRBC -Repeat CBC pending -Monitor Agitation Sepsis secondary to bacteremia with staph epi -Currently on Vanco Intellectual Disability Dysphagia PEM- moderate Hypoglycemia PEG placed last week -Peg tube became dislodged today and then replaced TF with Jevity 1.5 at 45ml/hr with 125ml Q4 Anemia with Thrombocyotpenia Monitor CHRISTIANO DARLING DO Nov 28, 2020 08:42
[2020-11-28 08:45] LABS: BASOPHILS % (AUTO) 0 % (0-10); EOSINOPHILS # (AUTO) 0.1 10^3/uL (0.0-0.3); EOSINOPHILS % (AUTO) 1 % (0-10); HEMATOCRIT 24 % (40-54); HEMOGLOBIN 7.4 g/dL (13.3-17.7); LYMPHOCYTES # (AUTO) 0.7 10^3/uL (1.0-4.0); LYMPHOCYTES % (AUTO) 7 % (12-44); MEAN CORPUSCULAR HEMOGLOBIN 30 pg (25-34); MEAN CORPUSCULAR HGB CONC 31 g/dL (32-36); MEAN CORPUSCULAR VOLUME 95 fL (80-99); MEAN PLATELET VOLUME 12.3 fL (9.0-12.2); MONOCYTES # (AUTO) 0.8 10^3/uL (0.0-1.0); MONOCYTES % (AUTO) 9 % (0-12); NEUTROPHILS # (AUTO) 7.8 10^3/uL (1.8-7.8); NEUTROPHILS % (AUTO) 83 % (42-75); PLATELET COUNT 104 10^3/uL (130-400); WHITE BLOOD COUNT 9.4 10^3/uL (4.3-11.0)
[2020-11-28] MEDS ORDERED: ALBUMIN 25% 25 GM/100 ML 100 ML IV NR (08:45)
[2020-11-28] MEDS ORDERED: FUROSEMIDE 40 MG/4 ML INJ (LASIX) IVP NR (08:45)
[2020-11-28 08:56] LABS: PHOSPHORUS 2.9 MG/DL (2.3-4.7)
[2020-11-28 08:58] LABS: MAGNESIUM 1.8 MG/DL (1.6-2.4)
[2020-11-28] MEDS: polyethylene glycoL POWDER 17 GM (MIRALAX) PACK PO SCH (09:03)
[2020-11-28] MEDS: DOCUSATE SODIUM 100 MG (COLACE) CAP PO SCH ×2 (09:03→20:09)
[2020-11-28] MEDS: PANTOPRAZOLE 40 MG (PROTONIX) VIAL IV SCH (09:03)
[2020-11-28] MEDS: guaiFENesin (MUCINEX) 600 MG TAB PO SCH ×2 (09:09→20:11)
--- NOTE | 2020-11-28 13:51 | Progress Note - Hospitalist ---
Subjective HPI/CC On Admission Date Seen by Provider: Nov 28, 2020 Time Seen by Provider: 13:48 Pt is a 65yoCM with a PMH of ID who lives at [place] who presented to the ER due to hypoxia. He was just discharged from the hospital yesterday after being admitted for aspiration pneumonia and PEG tube placement. He completed a week lo ng course of IV abx prior to discharge. He was doing well off oxygen. Today he developed some shortness of breath and hypoxia prompting evaluation in the ER. He was mildly hypoxic at 87& and placed on 2-3lpm NC and was up to 95%. He is unable to provide me any history due to baseline mentation. Subjective/Events-last exam Pt laying in bed. More alert today but did not speak. Was laying flat in bed and noticed to be coughing. I raised head of bed which helped. Objective Exam Vital Signs Vital Signs Date Time Temp Pulse Resp B/P (MAP) Pulse Ox O2 Delivery O2 Flow Rate FiO2 11/28/20 12:31 68 11/28/20 12:00 36.8 28 94/54 (67) 90 High Flow N/C 8.00 Capillary Refill : Less Than 3 SecondsLess Than 3 Seconds General Appearance: Chronically ill Respiratory: No Respiratory Distress, Decreased Breath Sounds Cardiovascular: Regular Rate, Rhythm, No Murmur Extremity: Other (mittens in place) Neurologic/Psychiatric: Alert, Aphasia, Disoriented Results/Procedures Lab Laboratory Tests 11/27/20 18:40 11/28/20 05:40 Patient resulted labs reviewed. Imaging: Reviewed Imaging Report Assessment/Plan Assessment and Plan Assess & Plan/Chief Complaint Acute respiratory failure likely due to aspiration pneumonia MRSE bacteremia Blood cultures positive for Staph epidermidis, MRSE Repeat blood cultures with no growth Continue Vancomycin day 09/11 Mucinex Continue to wean oxygen Intellectual Disability Dysphagia Severe protein-calorie malnutrition Poor prognosis Continue tube feeds and free water per dietary recs Speech consulted, hopefully will have better evaluation as more alert today Palliative care consulted, appreciate assistance To remain a full code Anemia Thrombocyotpenia s/p 3 units pRBC Hgb improved with transfusion Platelets down some today, trend DVT ppx: Lovenox Hypoglycemia, resolved Hypotension, resolved PEG tube malfunction, resolved Bradycardia, resolved Diagnosis/Problems Diagnosis/Problems (1) Aspiration pneumonia Status: Acute (2) Gastritis Status: Acute (3) Pancytopenia Status: Acute (4) Intellectual disability Status: Chronic Clinical Quality Measures DVT/VTE Risk/Contraindication: Risk Factor Score Per Nursin RFS Level Per Nursing on Admit: 4+=Very High BETH ELENA MD Nov 28, 2020 13:51
[2020-11-28] MEDS: ENOXAPARIN 40 MG/0.4 ML (LOVENOX) SYR SC SCH (17:07)
[2020-11-28] MEDS: guaiFENesin/DM (ROBITUSSIN DM) 10 ML UDC PO PRN (20:06)
[2020-11-28] MEDS: MELATONIN 10 MG TABLET PO SCH (20:09)
[2020-11-28] MEDS: OLANZapine 5 MG (ZyPREXA) TAB PO SCH (20:09)
[2020-11-29 00:58] VITALS: BP 114/57
[2020-11-29 04:48] VITALS: BP 116/55
[2020-11-29 05:22] LABS: EOSINOPHILS % (AUTO) 0 % (0-10); HEMOGLOBIN 7.3 g/dL (13.3-17.7); MEAN CORPUSCULAR HEMOGLOBIN 30 pg (25-34)
[2020-11-29 05:24] LABS: BASOPHILS % (AUTO) 0 % (0-10); HEMATOCRIT 23 % (40-54); LYMPHOCYTES # (AUTO) 0.4 10^3/uL (1.0-4.0); LYMPHOCYTES % (AUTO) 8 % (12-44); MEAN CORPUSCULAR HGB CONC 32 g/dL (32-36); MEAN CORPUSCULAR VOLUME 93 fL (80-99); MEAN PLATELET VOLUME 11.8 fL (9.0-12.2); MONOCYTES # (AUTO) 0.5 10^3/uL (0.0-1.0); MONOCYTES % (AUTO) 9 % (0-12); NEUTROPHILS # (AUTO) 4.5 10^3/uL (1.8-7.8); NEUTROPHILS % (AUTO) 82 % (42-75); PLATELET COUNT 123 10^3/uL (130-400); WHITE BLOOD COUNT 5.5 10^3/uL (4.3-11.0)
[2020-11-29 05:46] LABS: CHLORIDE 101 MMOL/L (98-107); POTASSIUM 3.8 MMOL/L (3.6-5.0); SODIUM 137 MMOL/L (135-145)
[2020-11-29 05:47] LABS: CALCIUM 8.6 MG/DL (8.5-10.1); GLUCOSE 94 MG/DL (70-105)
[2020-11-29 05:49] LABS: CARBON DIOXIDE 28 MMOL/L (21-32)
[2020-11-29 05:51] LABS: CREATININE SERUM 0.79 MG/DL (0.60-1.30); GFR ESTIMATED > 60; PHOSPHORUS 3.1 MG/DL (2.3-4.7)
[2020-11-29 05:52] LABS: BUN/CREATININE RATIO 27
[2020-11-29 05:53] LABS: MAGNESIUM 1.8 MG/DL (1.6-2.4)
[2020-11-29] MEDS: MULTIVITAMINS LIQUID 15 ML UDC PO SCH (07:00)
--- NOTE | 2020-11-29 07:40 | Pulmonary Progress Note ---
Subjective Time Seen by a Provider: 07:40 Sepsis Event Evaluation Height, Weight, BMI Height: 5'6.00" Weight: 139lbs. 0.0oz. 63.329748qk; 134.37 BMI Method:Actual Exam Exam Vital Signs Date Time Temp Pulse Resp B/P (MAP) Pulse Ox O2 Delivery O2 Flow Rate FiO2 11/29/20 04:48 37.2 87 20 116/55 (75) 93 High Flow N/C 10.00 11/29/20 04:35 94 High Flow N/C 10.00 11/29/20 01:36 72 11/29/20 00:58 37.2 75 20 114/57 (76) 91 High Flow N/C 6.00 11/28/20 20:20 94 High Flow N/C 8.00 11/28/20 20:00 High Flow N/C 7.00 11/28/20 19:51 36.8 78 20 84/45 (58) 94 11/28/20 19:00 77 11/28/20 17:18 118/59 (78) 11/28/20 16:02 36.8 70 16 86/50 (62) 94 High Flow N/C 8.00 11/28/20 12:31 68 11/28/20 12:00 36.8 78 28 94/54 (67) 90 High Flow N/C 8.00 11/28/20 09:00 High Flow N/C 7.00 11/28/20 08:00 36.3 79 20 94/60 (71) 90 High Flow N/C 7.00 11/28/20 07:50 94 High Flow N/C 7.00 I & O 11/29/20 07:00 Intake Total 260 ml Output Total 2850 ml Balance -2590 ml Height & Weight Height: 5'6.00" Weight: 139lbs. 0.0oz. 63.548943kf; 134.37 BMI Method:Actual General Appearance: Chronically ill HEENT: PERRL/EOMI, Other Neck: Normal Inspection, Non Tender Respiratory: No Respiratory Distress, Decreased Breath Sounds Cardiovascular: Regular Rate, Rhythm, No Murmur Capillary Refill: Less Than 3 Seconds Gastrointestinal: non tender, soft Extremity: Other (mittens in place) Neurologic/Psychiatric: Alert, Aphasia, Disoriented Skin: Normal Color, Warm/Dry Lymphatic: No Adenopathy Results Lab Laboratory Tests 11/27/20 18:40 11/28/20 05:40 11/29/20 04:25 Assessment/Plan Assessment/Plan Acute respiratory failure--improved oxygenation -7 liters of oxygen -COVID is negative -Cultures pending echocardiogram 55-60% Pulmonary edema -Repeat LAsix 40mg IV Hypotension -Monitor -Will give Albumin 25gms x 1 Anemia -s/p 1 unit of PRBC -Repeat CBC pending -Monitor Agitation Sepsis secondary to bacteremia with staph epi -Currently on Vanco Intellectual Disability Dysphagia PEM- moderate Hypoglycemia PEG placed last week -Peg tube became dislodged today and then replaced TF with Jevity 1.5 at 45ml/hr with 125ml Q4 Anemia with Thrombocyotpenia Monitor CHRISTIANO DARLING DO Nov 29, 2020 07:40
[2020-11-29] MEDS: RT-ALBUTEROL INHALER HFA (VENTOLIN HFA) 18 GM IH SCH ×2 (07:41→19:19)
[2020-11-29] MEDS ORDERED: FUROSEMIDE 40 MG/4 ML INJ (LASIX) IVP ONE (07:45)
[2020-11-29 08:00] VITALS: BP 126/60
[2020-11-29] MEDS: DOCUSATE SODIUM 100 MG (COLACE) CAP PO SCH ×3 (09:00→20:06)
[2020-11-29] MEDS: polyethylene glycoL POWDER 17 GM (MIRALAX) PACK PO SCH ×2 (09:00→10:29)
[2020-11-29] MEDS: POTASSIUM CL 10MEQ/50ML IVPB 50 ML IV SCH ×4 (09:01→12:41)
[2020-11-29] MEDS: NS IV 500 ML 500 ML IV SCH (09:23)
[2020-11-29] MEDS: guaiFENesin (MUCINEX) 600 MG TAB PO SCH ×2 (10:29→21:34)
[2020-11-29] MEDS: PANTOPRAZOLE 40 MG (PROTONIX) VIAL IV SCH (10:29)
--- NOTE | 2020-11-29 10:29 | Progress Note - Hospitalist ---
Subjective HPI/CC On Admission Date Seen by Provider: Nov 29, 2020 Time Seen by Provider: 10:25 Pt is a 65yoCM with a PMH of ID who lives at [place] who presented to the ER due to hypoxia. He was just discharged from the hospital yesterday after being admitted for aspiration pneumonia and PEG tube placement. He completed a week long course of IV abx prior to discharge. He was doing well off oxygen. Today he developed some shortness of breath and hypoxia prompting evaluation in the ER. He was mildly hypoxic at 87& and placed on 2-3lpm NC and was up to 95%. He is unable to provide me any history due to baseline mentation. Subjective/Events-last exam Pt laying in bed. Alert but does not speak today. No ROS possible. Objective Exam Vital Signs Vital Signs Date Time Temp Pulse Resp B/P (MAP) Pulse Ox O2 Delivery O2 Flow Rate FiO2 11/29/20 08:00 37.4 78 24 126/60 (82) 94 High Flow N/C 10.00 Capillary Refill : Less Than 3 SecondsLess Than 3 Seconds General Appearance: No Apparent Distress, Chronically ill Respiratory: No Respiratory Distress, Decreased Breath Sounds, Other (on 10lpm NC) Cardiovascular: Regular Rate, Rhythm, No Murmur Neurologic/Psychiatric: Alert, Aphasia, Disoriented Results/Procedures Lab Laboratory Tests 11/29/20 04:25 Patient resulted labs reviewed. Imaging: Reviewed Imaging Report Assessment/Plan Assessment and Plan Assess & Plan/Chief Complaint Acute respiratory failure likely due to aspiration pneumonia MRSE bacteremia Blood cultures positive for Staph epidermidis, MRSE Repeat blood cultures with no growth Continue Vancomycin day 10/12 Mucinex Continue to wean oxygen as able, went up some last night Intellectual Disability Dysphagia Severe protein-calorie malnutrition Poor prognosis Continue tube feeds and free water per dietary recs Speech consulted, is to remain NPO as unable to safely take PO Palliative care consulted, appreciate assistance To remain a full code Anemia Thrombocyotpenia s/p 3 units pRBC Hgb improved with transfusion Platelets up, relatviely stable DVT ppx: Lovenox Hypoglycemia, resolved Hypotension, resolved PEG tube malfunction, resolved Bradycardia, resolved Diagnosis/Problems Diagnosis/Problems (1) Aspiration pneumonia Status: Acute (2) Gastritis Status: Acute (3) Pancytopenia Status: Acute (4) Intellectual disability Status: Chronic Clinical Quality Measures DVT/VTE Risk/Contraindication: Risk Factor Score Per Nursin RFS Level Per Nursing on Admit: 4+=Very High BETH ELENA MD Nov 29, 2020 10:29
[2020-11-29 12:00] VITALS: BP 128/78
[2020-11-29] MEDS: VANCOMYCIN INJECTION 1,000 MG in NS (IVPB) 250 ML IV SCH (12:42)
[2020-11-29 16:00] VITALS: BP 96/41
[2020-11-29] MEDS: ENOXAPARIN 40 MG/0.4 ML (LOVENOX) SYR SC SCH (17:09)
[2020-11-29 20:00] VITALS: BP 114/60
[2020-11-29] MEDS: MELATONIN 10 MG TABLET PO SCH (21:34)
[2020-11-29] MEDS: OLANZapine 5 MG (ZyPREXA) TAB PO SCH (21:34)
[2020-11-30] VITALS: BP 116/57
[2020-11-30] MEDS: VANCOMYCIN INJECTION 1,000 MG in NS (IVPB) 250 ML IV SCH ×2 (00:24→12:36)
[2020-11-30] MEDS: NS IV 500 ML 500 ML IV SCH (01:40)
[2020-11-30 06:24] LABS: BASOPHILS % (AUTO) 0 % (0-10); HEMATOCRIT 24 % (40-54); HEMOGLOBIN 7.4 g/dL (13.3-17.7); MEAN CORPUSCULAR HGB CONC 32 g/dL (32-36)
[2020-11-30] MEDS: MULTIVITAMINS LIQUID 15 ML UDC PO SCH (06:24)
[2020-11-30 06:26] LABS: EOSINOPHILS % (AUTO) 1 % (0-10); LYMPHOCYTES # (AUTO) 0.5 10^3/uL (1.0-4.0); LYMPHOCYTES % (AUTO) 17 % (12-44); MEAN CORPUSCULAR HEMOGLOBIN 30 pg (25-34); MEAN CORPUSCULAR VOLUME 94 fL (80-99); MEAN PLATELET VOLUME 11.4 fL (9.0-12.2); MONOCYTES # (AUTO) 0.4 10^3/uL (0.0-1.0); MONOCYTES % (AUTO) 13 % (0-12); NEUTROPHILS % (AUTO) 67 % (42-75); PLATELET COUNT 106 10^3/uL (130-400)
[2020-11-30 06:49] LABS: CHLORIDE 104 MMOL/L (98-107); POTASSIUM 3.9 MMOL/L (3.6-5.0); SODIUM 139 MMOL/L (135-145)
[2020-11-30 06:51] LABS: CALCIUM 8.5 MG/DL (8.5-10.1); GLUCOSE 86 MG/DL (70-105)
[2020-11-30 06:53] LABS: CARBON DIOXIDE 27 MMOL/L (21-32)
[2020-11-30 06:55] LABS: CREATININE SERUM 0.86 MG/DL (0.60-1.30); GFR ESTIMATED > 60; PHOSPHORUS 3.5 MG/DL (2.3-4.7)
[2020-11-30 06:56] LABS: BUN/CREATININE RATIO 27
[2020-11-30 06:57] LABS: MAGNESIUM 1.9 MG/DL (1.6-2.4)
[2020-11-30] MEDS: RT-ALBUTEROL INHALER HFA (VENTOLIN HFA) 18 GM IH SCH (07:07)
[2020-11-30] MEDS: DOCUSATE SODIUM 100 MG (COLACE) CAP PO SCH ×2 (07:44→19:48)
[2020-11-30] MEDS: polyethylene glycoL POWDER 17 GM (MIRALAX) PACK PO SCH (07:50)
[2020-11-30 08:00] VITALS: BP 96/52
[2020-11-30] MEDS: guaiFENesin (MUCINEX) 600 MG TAB PO SCH ×2 (08:44→20:04)
[2020-11-30] MEDS: PANTOPRAZOLE 40 MG (PROTONIX) VIAL IV SCH (08:44)
--- NOTE | 2020-11-30 12:04 | Progress Note - Hospitalist ---
Subjective HPI/CC On Admission Date Seen by Provider: Nov 30, 2020 Time Seen by Provider: 12:02 Pt is a 65yoCM with a PMH of ID who lives at [place] who presented to the ER due to hypoxia. He was just discharged from the hospital yesterday after being admitted for aspiration pneumonia and PEG tube placement. He completed a week long course of IV abx prior to discharge. He was doing well off oxygen. Today he developed some shortness of breath and hypoxia prompting evaluation in the ER. He was mildly hypoxic at 87& and placed on 2-3lpm NC and was up to 95%. He is unable to provide me any history due to baseline mentation. Subjective/Events-last exam Pt alert and looking around. Nurse doing oral care and says "bye bye" otherwise no communication. Objective Exam Vital Signs Vital Signs Date Time Temp Pulse Resp B/P (MAP) Pulse Ox O2 Delivery O2 Flow Rate FiO2 11/30/20 09:04 High Flow N/C 5.00 11/30/20 08:00 36.9 82 22 96/52 (67) 98 Capillary Refill : Less Than 3 SecondsLess Than 3 Seconds General Appearance: Chronically ill, Cachetic Respiratory: Decreased Breath Sounds, Other (on 5lpm) Cardiovascular: Regular Rate, Rhythm, No Murmur Gastrointestinal: Normal Bowel Sounds, Other (PEG in place) Neurologic/Psychiatric: Alert, Aphasia, Disoriented Results/Procedures Lab Laboratory Tests 11/30/20 05:45 Patient resulted labs reviewed. Imaging: Reviewed Imaging Report Assessment/Plan Assessment and Plan Assess & Plan/Chief Complaint Acute respiratory failure likely due to aspiration pneumonia MRSE bacteremia Blood cultures positive for Staph epidermidis, MRSE Repeat blood cultures with no growth Continue Vancomycin day 11/11 Mucinex Continue to wean oxygen as able, down to 5lpm today Hopeful to be able to DC back to [place] early next week if he continues to improve oxygen mukherjee Intellectual Disability Dysphagia Severe protein-calorie malnutrition Poor prognosis Continue tube feeds and free water per dietary recs Speech consulted, is to remain NPO as unable to safely take PO Palliative care consulted, appreciate assistance To remain a full code per brother Anemia Thrombocyotpenia s/p 3 units pRBC Hgb improved with transfusion Platelets up, relatviely stable DVT ppx: Lovenox Hypoglycemia, resolved Hypotension, resolved PEG tube malfunction, resolved Bradycardia, resolved Diagnosis/Problems Diagnosis/Problems (1) Aspiration pneumonia Status: Acute (2) Gastritis Status: Acute (3) Pancytopenia Status: Acute (4) Intellectual disability Status: Chronic Clinical Quality Measures DVT/VTE Risk/Contraindication: Risk Factor Score Per Nursin RFS Level Per Nursing on Admit: 4+=Very High BETH ELENA MD Nov 30, 2020 12:04
[2020-11-30 16:00] VITALS: BP 105/61
[2020-11-30] MEDS: ENOXAPARIN 40 MG/0.4 ML (LOVENOX) SYR SC SCH (16:38)
[2020-11-30] MEDS: MELATONIN 10 MG TABLET PO SCH (20:04)
[2020-11-30] MEDS: OLANZapine 5 MG (ZyPREXA) TAB PO SCH (20:04)
[2020-11-30 23:50] VITALS: BP 102/60
[2020-12-01] MEDS: VANCOMYCIN INJECTION 1,000 MG in NS (IVPB) 250 ML IV SCH ×2 (00:55→12:08)
[2020-12-01 04:00] VITALS: BP 96/57
[2020-12-01] MEDS: MULTIVITAMINS LIQUID 15 ML UDC PO SCH (06:34)
--- NOTE | 2020-12-01 06:52 | Progress Note - Hospitalist ---
Subjective HPI/CC On Admission Date Seen by Provider: Dec 01, 2020 Time Seen by Provider: 06:49 Pt is a 65yoCM with a PMH of ID who lives at [place] who presented to the ER due to hypoxia. He was just discharged from the hospital yesterday after being admitted for aspiration pneumonia and PEG tube placement. He completed a week long course of IV abx prior to discharge. He was doing well off oxygen. Today he developed some shortness of breath and hypoxia prompting evaluation in the ER. He was mildly hypoxic at 87& and placed on 2-3lpm NC and was up to 95%. He is unable to provide me any history due to baseline mentation. Subjective/Events-last exam Pt laying in bed. Awake. Tube feeds being given. No concerns per ROS. Objective Exam Vital Signs Vital Signs Date Time Temp Pulse Resp B/P (MAP) Pulse Ox O2 Delivery O2 Flow Rate FiO2 12/01/20 04:00 37.1 59 20 96/57 (70) 94 Room Air 11/30/20 09:04 5.00 Capillary Refill : Less Than 3 SecondsLess Than 3 Seconds General Appearance: Chronically ill Respiratory: Lungs Clear, No Respiratory Distress, Other (off oxygen) Cardiovascular: Regular Rate, Rhythm, No Murmur Neurologic/Psychiatric: Alert, Aphasia, Disoriented Results/Procedures Lab Patient resulted labs reviewed. Imaging: Reviewed Imaging Report Assessment/Plan Assessment and Plan Assess & Plan/Chief Complaint Acute respiratory failure likely due to aspiration pneumonia MRSE bacteremia Blood cultures positive for Staph epidermidis, MRSE Repeat blood cultures with no growth Continue Vancomycin day Mucinex On room air today, home oxygen study ordered Intellectual Disability Dysphagia Severe protein-calorie malnutrition Poor prognosis Continue tube feeds and free water per dietary recs Speech consulted, is to remain NPO as unable to safely take PO Palliative care consulted, appreciate assistance To remain a full code per brother I discussed this with his brother on 11/30 and concerns that eventually he will get a recurrent pneumonia and will not survive. Also discussed NPO status and patients occasional requests to take in orally and how if we are not geared towards comfort only then we cannot safely feed him. Brother expressed understanding. Anemia Thrombocyotpenia s/p 3 units pRBC Hgb stable DVT ppx: Lovenox Hypoglycemia, resolved Hypotension, resolved PEG tube malfunction, resolved Bradycardia, resolved Diagnosis/Problems Diagnosis/Problems (1) Aspiration pneumonia Status: Acute (2) Gastritis Status: Acute (3) Pancytopenia Status: Acute (4) Intellectual disability Status: Chronic Clinical Quality Measures DVT/VTE Risk/Contraindication: Risk Factor Score Per Nursin RFS Level Per Nursing on Admit: 4+=Very High BETH ELENA MD Dec 01, 2020 06:52
[2020-12-01] MEDS: RT-ALBUTEROL INHALER HFA (VENTOLIN HFA) 18 GM IH SCH ×2 (07:08→20:42)
[2020-12-01 08:00] VITALS: BP 111/63
[2020-12-01] MEDS: guaiFENesin (MUCINEX) 600 MG TAB PO SCH ×2 (09:14→21:32)
[2020-12-01] MEDS: polyethylene glycoL POWDER 17 GM (MIRALAX) PACK PO SCH (09:14)
[2020-12-01] MEDS: DOCUSATE SODIUM 100 MG (COLACE) CAP PO SCH ×2 (09:16→21:27)
[2020-12-01] MEDS: PANTOPRAZOLE 40 MG (PROTONIX) VIAL IV SCH (09:16)
[2020-12-01 12:00] VITALS: BP 121/66
[2020-12-01 16:00] VITALS: BP 94/43
[2020-12-01] MEDS: ENOXAPARIN 40 MG/0.4 ML (LOVENOX) SYR SC SCH (17:09)
[2020-12-01 20:01] VITALS: BP 105/61
[2020-12-01] MEDS: guaiFENesin/DM (ROBITUSSIN DM) 10 ML UDC PO PRN (21:27)
[2020-12-01] MEDS: OLANZapine 5 MG (ZyPREXA) TAB PO SCH (21:27)
[2020-12-01] MEDS: MELATONIN 10 MG TABLET PO SCH (21:27)
[2020-12-02] VITALS: BP 110/72
[2020-12-02] MEDS: VANCOMYCIN INJECTION 1,000 MG in NS (IVPB) 250 ML IV SCH ×2 (00:43→12:36)
[2020-12-02 04:00] VITALS: BP 94/57
[2020-12-02] MEDS: MULTIVITAMINS LIQUID 15 ML UDC PO SCH (06:42)
--- NOTE | 2020-12-02 07:22 | Pulmonary Progress Note ---
Subjective Time Seen by a Provider: 07:21 Subjective/Events-last exam PT appears to be doing better. Sepsis Event Evaluation Height, Weight, BMI Height: 5'6.00" Weight: 139lbs. 0.0oz. 63.782777ic; 134.37 BMI Method:Actual Exam Exam Vital Signs Date Time Temp Pulse Resp B/P (MAP) Pulse Ox O2 Delivery O2 Flow Rate FiO2 12/02/20 04:00 36.4 79 20 94/57 (69) 91 High Flow N/C 2.00 12/02/20 01:00 69 12/02/20 00:00 36.6 66 19 110/72 (85) 93 Room Air 12/01/20 21:32 92 Room Air 12/01/20 20:01 36.8 61 18 105/61 (76) 92 Room Air 12/01/20 19:00 60 12/01/20 16:00 36.8 75 18 94/43 (60) 93 Room Air 12/01/20 12:57 61 12/01/20 12:00 37.0 61 22 121/66 (84) 95 Room Air 12/01/20 10:04 Room Air 12/01/20 08:00 37.0 77 22 111/63 (79) 91 Room Air I & O 12/02/20 07:00 Intake Total 560 ml Output Total 750 ml Balance -190 ml Height & Weight Height: 5'6.00" Weight: 139lbs. 0.0oz. 63.761039uo; 134.37 BMI Method:Actual General Appearance: Chronically ill HEENT: PERRL/EOMI, Other Neck: Normal Inspection, Non Tender Respiratory: Lungs Clear, No Respiratory Distress, Other (off oxygen) Cardiovascular: Regular Rate, Rhythm, No Murmur Capillary Refill: Less Than 3 Seconds Gastrointestinal: non tender, soft Extremity: Other (mittens in place) Neurologic/Psychiatric: Alert, Aphasia, Disoriented Skin: Normal Color, Warm/Dry Lymphatic: No Adenopathy Assessment/Plan Assessment/Plan Acute respiratory failure--improved oxygenation -2 liters of oxygen -COVID is negative -Cultures pending echocardiogram 55-60% Pulmonary edema -monitor -Repeat BNP Anemia -s/p 1 unit of PRBC -Monitor Agitation Sepsis secondary to bacteremia with staph epi -Currently on Vanco Intellectual Disability Dysphagia PEM- moderate Hypoglycemia PEG placed last week -Peg tube became dislodged today and then replaced TF with Jevity 1.5 at 45ml/hr with 125ml Q4 Anemia with Thrombocyotpenia Monitor CHRISTIANO DARLING DO Dec 02, 2020 07:22
[2020-12-02] MEDS: RT-ALBUTEROL INHALER HFA (VENTOLIN HFA) 18 GM IH SCH ×2 (07:25→19:56)
[2020-12-02] MEDS: polyethylene glycoL POWDER 17 GM (MIRALAX) PACK PO SCH (07:44)
[2020-12-02] MEDS: DOCUSATE SODIUM 100 MG (COLACE) CAP PO SCH ×2 (07:44→20:09)
[2020-12-02 08:00] VITALS: BP 102/60
[2020-12-02] MEDS: guaiFENesin (MUCINEX) 600 MG TAB PO SCH ×2 (08:52→21:51)
[2020-12-02] MEDS: PANTOPRAZOLE 40 MG (PROTONIX) VIAL IV SCH (08:52)
[2020-12-02 12:00] VITALS: BP 103/61
[2020-12-02 16:00] VITALS: BP 117/67
[2020-12-02] MEDS: ENOXAPARIN 40 MG/0.4 ML (LOVENOX) SYR SC SCH (17:51)
[2020-12-02 20:00] VITALS: BP 115/64
[2020-12-02] MEDS: OLANZapine 5 MG (ZyPREXA) TAB PO SCH (21:51)
[2020-12-02] MEDS: MELATONIN 10 MG TABLET PO SCH (21:51)
--- NOTE | 2020-12-02 22:02 | Progress Note - Hospitalist ---
Subjective HPI/CC On Admission Date Seen by Provider: Dec 02, 2020 Time Seen by Provider: 09:35 Pt is a 65yoCM with a PMH of ID who lives at [place] who presented to the ER due to hypoxia. He was just discharged from the hospital yesterday after being admitted for aspiration pneumonia and PEG tube placement. He completed a week long course of IV abx prior to discharge. He was doing well off oxygen. Today he developed some shortness of breath and hypoxia prompting evaluation in the ER. He was mildly hypoxic at 87& and placed on 2-3lpm NC and was up to 95%. He is unable to provide me any history due to baseline mentation. Subjective/Events-last exam He is nonverbal. He is sleeping. Objective Exam Vital Signs Vital Signs Date Time Temp Pulse Resp B/P (MAP) Pulse Ox O2 Delivery O2 Flow Rate FiO2 12/03/20 08:00 36.8 70 20 102/57 (72) 95 High Flow N/C 2.00 Capillary Refill : Less Than 3 SecondsLess Than 3 Seconds General Appearance: No Apparent Distress, Chronically ill Respiratory: No Respiratory Distress, Other (coarse breath sounds) Cardiovascular: Regular Rate, Rhythm, No Murmur Gastrointestinal: Normal Bowel Sounds, Non Tender, Soft Extremity: Normal Inspection, Non Tender, Pedal Edema Neurologic/Psychiatric: Disoriented, Other (nonverbal) Skin: Normal Color, Warm/Dry Results/Procedures Lab Laboratory Tests 12/03/20 07:37 Patient resulted labs reviewed. Imaging: Reviewed Imaging Report Assessment/Plan Assessment and Plan Assess & Plan/Chief Complaint Acute respiratory failure likely due to aspiration pneumonia MRSE bacteremia Blood cultures positive for Staph epidermidis, MRSE Repeat blood cultures with no growth Vancomycin day Continue supplemental oxygen as needed Intellectual Disability Dysphagia Severe protein-calorie malnutrition Poor prognosis Continue tube feeds and free water per dietary recs Speech consulted, is to remain NPO as unable to safely take PO Palliative care consulted, appreciate assistance To remain a full code per brother Pancytopenia s/p 3 units pRBC Hgb stable DVT ppx: Lovenox Hypoglycemia, resolved Hypotension, resolved PEG tube malfunction, resolved Bradycardia, resolved Diagnosis/Problems Diagnosis/Problems (1) Bacteremia due to methicillin resistant Staphylococcus epidermidis Status: Acute (2) Aspiration pneumonia Status: Acute (3) Intellectual disability Status: Chronic (4) Pancytopenia Status: Acute (5) Bradycardia with 31-40 beats per minute Status: Resolved Resolution Date/Time: 11/22/20 @ 08:04 (6) Hypotension Status: Resolved Resolution Date/Time: 11/22/20 @ 08:04 Clinical Quality Measures DVT/VTE Risk/Contraindication: Risk Factor Score Per Nursin RFS Level Per Nursing on Admit: 4+=Very High ELYSSA ANTUNEZ MD Dec 02, 2020 22:02
[2020-12-03] VITALS: BP 112/62
[2020-12-03 04:00] VITALS: BP 111/59
[2020-12-03] MEDS: MULTIVITAMINS LIQUID 15 ML UDC PO SCH (06:21)
[2020-12-03] MEDS: RT-ALBUTEROL INHALER HFA (VENTOLIN HFA) 18 GM IH SCH (06:59)
--- NOTE | 2020-12-03 07:15 | Pulmonary Progress Note ---
Subjective Time Seen by a Provider: 07:13 Subjective/Events-last exam No complications noted. Sepsis Event Evaluation Height, Weight, BMI Height: 5'6.00" Weight: 139lbs. 0.0oz. 63.052502gi; 134.37 BMI Method:Actual Exam Exam Vital Signs Date Time Temp Pulse Resp B/P (MAP) Pulse Ox O2 Delivery O2 Flow Rate FiO2 12/03/20 07:00 93 High Flow N/C 2.00 12/03/20 04:00 36.8 68 18 111/59 (76) 97 High Flow N/C 2.00 12/03/20 01:00 70 12/03/20 00:00 36.4 80 19 112/62 (79) 96 High Flow N/C 2.00 12/02/20 21:51 95 Nasal Cannula 2.00 12/02/20 20:00 36.9 68 20 115/64 (81) 98 12/02/20 19:56 95 High Flow N/C 3.00 12/02/20 19:00 73 12/02/20 16:00 36.6 66 20 117/67 (84) 94 12/02/20 12:55 71 12/02/20 12:00 36.4 72 18 103/61 (75) 99 High Flow N/C 2.00 12/02/20 09:00 Nasal Cannula 2.00 12/02/20 08:00 36.6 59 16 102/60 (74) 97 High Flow N/C 2.00 12/02/20 07:26 95 Room Air I & O 12/03/20 07:00 Intake Total 0 ml Output Total 1475 ml Balance -1475 ml Height & Weight Height: 5'6.00" Weight: 139lbs. 0.0oz. 63.610044ac; 134.37 BMI Method:Actual General Appearance: Chronically ill HEENT: PERRL/EOMI, Other Neck: Normal Inspection, Non Tender Respiratory: Lungs Clear, No Respiratory Distress, Other (off oxygen) Cardiovascular: Regular Rate, Rhythm, No Murmur Capillary Refill: Less Than 3 Seconds Gastrointestinal: non tender, soft Extremity: Other (mittens in place) Neurologic/Psychiatric: Alert, Aphasia, Disoriented Skin: Normal Color, Warm/Dry Lymphatic: No Adenopathy Assessment/Plan Assessment/Plan Acute respiratory failure--improved oxygenation -2 liters of oxygen -COVID is negative -Cultures pending echocardiogram 55-60% Pulmonary edema -monitor -Start Lasix 40mg daily Anemia -s/p 1 unit of PRBC -Monitor Agitation Sepsis secondary to bacteremia with staph epi -Currently on Vanco Intellectual Disability Dysphagia -PEG tube PEM- moderate Hypoglycemia Anemia with Thrombocyotpenia Monitor CHRISTIANO DARLING DO Dec 03, 2020 07:15
[2020-12-03 07:46] LABS: BASOPHILS % (AUTO) 1 % (0-10); EOSINOPHILS # (AUTO) 0.1 10^3/uL (0.0-0.3); EOSINOPHILS % (AUTO) 4 % (0-10); HEMATOCRIT 24 % (40-54); HEMOGLOBIN 7.4 g/dL (13.3-17.7); LYMPHOCYTES # (AUTO) 0.9 10^3/uL (1.0-4.0); LYMPHOCYTES % (AUTO) 24 % (12-44); MEAN CORPUSCULAR HEMOGLOBIN 30 pg (25-34); MEAN CORPUSCULAR HGB CONC 31 g/dL (32-36); MEAN CORPUSCULAR VOLUME 96 fL (80-99); MEAN PLATELET VOLUME 10.9 fL (9.0-12.2); MONOCYTES # (AUTO) 0.5 10^3/uL (0.0-1.0); MONOCYTES % (AUTO) 15 % (0-12); NEUTROPHILS % (AUTO) 55 % (42-75); PLATELET COUNT 146 10^3/uL (130-400); WHITE BLOOD COUNT 3.7 10^3/uL (4.3-11.0)
[2020-12-03 08:00] VITALS: BP 102/57
[2020-12-03 08:02] LABS: BUN/CREATININE RATIO 24; CARBON DIOXIDE 24 MMOL/L (21-32); CHLORIDE 109 MMOL/L (98-107); CREATININE SERUM 0.86 MG/DL (0.60-1.30); GFR ESTIMATED > 60; GLUCOSE 125 MG/DL (70-105); POTASSIUM 3.8 MMOL/L (3.6-5.0); SODIUM 141 MMOL/L (135-145)
[2020-12-03] MEDS ORDERED: FUROSEMIDE 40 MG (LASIX) TAB PO SCH (09:00)
[2020-12-03] MEDS: PANTOPRAZOLE 40 MG (PROTONIX) VIAL IV SCH (10:17)
[2020-12-03] MEDS: guaiFENesin (MUCINEX) 600 MG TAB PO SCH (10:25)
[2020-12-03] MEDS: polyethylene glycoL POWDER 17 GM (MIRALAX) PACK PO SCH (10:25)
[2020-12-03] MEDS: DOCUSATE SODIUM 100 MG (COLACE) CAP PO SCH (10:25)
--- NOTE | 2020-12-03 11:48 | Progress Note - Hospitalist ---
Subjective HPI/CC On Admission Date Seen by Provider: Dec 03, 2020 Time Seen by Provider: 08:45 Pt is a 65yoCM with a PMH of ID who lives at [place] who presented to the ER due to hypoxia. He was just discharged from the hospital yesterday after being admitted for aspiration pneumonia and PEG tube placement. He completed a week long course of IV abx prior to discharge. He was doing well off oxygen. Today he developed some shortness of breath and hypoxia prompting evaluation in the ER. He was mildly hypoxic at 87& and placed on 2-3lpm NC and was up to 95%. He is unable to provide me any history due to baseline mentation. Subjective/Events-last exam He is awake and alert. He says noncomprehensible words. He does not follow commands. Objective Exam Vital Signs Vital Signs Date Time Temp Pulse Resp B/P (MAP) Pulse Ox O2 Delivery O2 Flow Rate FiO2 12/03/20 08:00 36.8 70 20 102/57 (72) 95 High Flow N/C 2.00 Capillary Refill : Less Than 3 SecondsLess Than 3 Seconds General Appearance: No Apparent Distress Respiratory: No Respiratory Distress, Other (coarse breath sounds) Cardiovascular: Regular Rate, Rhythm, No Murmur Gastrointestinal: Normal Bowel Sounds, Non Tender, Soft, Other (PEG tube in place) Extremity: Normal Inspection, Non Tender, Pedal Edema Neurologic/Psychiatric: Alert, Disoriented Skin: Normal Color, Warm/Dry Results/Procedures Lab Laboratory Tests 12/03/20 07:37 Patient resulted labs reviewed. Imaging: Reviewed Imaging Report Assessment/Plan Assessment and Plan Assess & Plan/Chief Complaint Acute respiratory failure likely due to aspiration pneumonia MRSE bacteremia Blood cultures positive for Staph epidermidis, MRSE Repeat blood cultures with no growth Completed course of Vancomycin Continue supplemental oxygen as needed Intellectual Disability Dysphagia Severe protein-calorie malnutrition Poor prognosis Continue tube feeds and free water per dietary recs Speech consulted, is to remain NPO as unable to safely take PO Palliative care consulted, appreciate assistance To remain a full code per brother Pancytopenia s/p 3 units pRBC Hgb stable DVT ppx: Lovenox Hypoglycemia, resolved Hypotension, resolved PEG tube malfunction, resolved Bradycardia, resolved Diagnosis/Problems Diagnosis/Problems (1) Bacteremia due to methicillin resistant Staphylococcus epidermidis Status: Acute (2) Aspiration pneumonia Status: Acute (3) Intellectual disability Status: Chronic (4) Pancytopenia Status: Acute (5) Bradycardia with 31-40 beats per minute Status: Resolved Resolution Date/Time: 11/22/20 @ 08:04 (6) Hypotension Status: Resolved Resolution Date/Time: 11/22/20 @ 08:04 Clinical Quality Measures DVT/VTE Risk/Contraindication: Risk Factor Score Per Nursin RFS Level Per Nursing on Admit: 4+=Very High ELYSSA ANTUNEZ MD Dec 03, 2020 11:48
[2020-12-03] MEDS ORDERED: GUAI600T43 PO (11:53)
[2020-12-03] MEDS ORDERED: POTA20TA8 PO (11:53)
[2020-12-03] MEDS ORDERED: FURO40TA4 PO (11:53)
[2020-12-03 12:00] VITALS: BP 95/52
[2020-12-03] MEDS ORDERED: GUAI100L13 PEG (12:06)
[2020-12-03] MEDS ORDERED: POTA40LI3 PEG (12:06)
[2020-12-03] MEDS ORDERED: FAMO-119 PEG (12:08)
--- NOTE | 2020-12-03 12:36 | Discharge Summary ---
Discharge Summary Reconcile Patient Problems Problems Reviewed?: Yes Instructions for Patient Via [employer], Assessment/Instructions Take medications as prescribed. Follow-up with your primary care physician. Return with worsening shortness of breath. Physician to follow Patient: Elena Discharge Diet for Home: other diet (tube feeds only, nothing by mouth) Hospital Course Date of Admission: Nov 16, 2020 at 15:20 Admission Diagnosis: Acute hypoxic respiratory failure due to aspiration pneumonia Family Physician/Provider: Ben Parker DO Date of Discharge: 12/03/20 Discharge Diagnosis: Acute hypoxic respiratory failure due to aspiration pneumonia Hospital Course: Jd Neves is a 65-year-old male with intellectual disability who presented with acute hypoxic respiratory failure due to recurrent aspiration pneumonia. He had recently been hospitalized and had a PEG tube placed. He was treated with antibiotics for a recurrent aspiration pneumonia. He was also found to have a methicillin-resistant staph epidermidis bacteremia. He received a two- week course of vancomycin for this infection. His course was complicated by hypotension and bradycardia which required ICU level care. He also had his PEG tube displaced and this was replaced by general surgery. He also had pancytopenia and required 3 units PRBC transfusion during his stay. Due to his chronic medical conditions and recurrent aspirations and hospitalizations, we discussed palliative care with his brother. He is a [place] of the state and the court would need to be petitioned to change his CODE STATUS. This was began but the brother changed his mind when he began to show slight improvement. He will remain a full code despite the irreversible nature of his chronic medical conditions and his poor prognosis. [facility]. He was requiring 2 L of supplemental oxygen at the time of discharge. He is at high risk for readmission as he will inevitably develop a recurrent aspiration pneumonia. Labs and Pending Lab Test: Laboratory Tests 12/03/20 07:37: White Blood Count 3.7L, Red Blood Count 2.49L, Hemoglobin 7.4L, Hematocrit 24L, Mean Corpuscular Volume 96, Mean Corpuscular Hemoglobin 30, Mean Corpuscular Hemoglobin Concent 31L, Red Cell Distribution Width 17.4H, Platelet Count 146, Mean Platelet Volume 10.9, Immature Granulocyte % (Auto) 2, Neutrophils (%) (Auto) 55, Lymphocytes (%) (Auto) 24, Monocytes (%) (Auto) 15H, Eosinophils (%) (Auto) 4, Basophils (%) (Auto) 1, Neutrophils # (Auto) 2.0, Lymphocytes # (Auto) 0.9L, Monocytes # (Auto) 0.5, Eosinophils # (Auto) 0.1, Basophils # (Auto) 0.0, Immature Granulocyte # (Auto) 0.1, Sodium Level 141, Potassium Level 3.8, Chloride Level 109H, Carbon Dioxide Level 24, Anion Gap 8, Blood Urea Nitrogen 21H, Creatinine 0.86, Estimat Glomerular Filtration Rate > 60, BUN/Creatinine Ratio 24, Glucose Level 125H, Calcium Level 8.0L Microbiology 11/19/20 Blood Culture - Final, Complete No growth Home Meds Active Pepcid (Famotidine) 20 Mg Tablet 20 Mg PEG DAILY 30 Days Guaifenesin 100 Mg/5 Ml Liquid 400 Mg PEG TID 30 Days Potassium Chloride 40 Meq/15 Ml Liquid 20 Meq PEG DAILY 30 Days Furosemide 40 Mg Tablet 40 Mg PO DAILY 30 Days Reported Ondansetron Odt (Ondansetron) 4 Mg Tab.rapdis 4 Mg PO Q8H PRN Ibuprofen 200 Mg Tablet 400 Mg PO Q6H PRN Ondansetron Odt (Ondansetron) 8 Mg Tab.rapdis 16 Mg PO TIDAC TAKES 2 (8MG) TABS Docusate Sodium 100 Mg Tablet 100 Mg PO BID Vitamin D3 (Cholecalciferol (Vitamin D3)) 50 Mcg Capsule 50 Mcg PO DAILY Psyllium Fiber (Psyllium Husk) 0.52 Gm Capsule 0.52 Gm PO DAILY Melatonin 5 Mg Tablet 5 Mg PO HS Cough Drops (Menthol) 5 Mg Lozenge 5 Mg MM Q1H PRN MDD 8 LOZENGES Calcium Carbonate 500 Mg Tablet 1,000 Mg PO Q4H PRN Tetrahydrozoline HCl 15 Ml Drops 2 Drop OU Q6H PRN Multivitamin 1 Each Tablet 1 Each PO DAILY Imodium A-D (Loperamide HCl) 2 Mg Capsule 1-2 Mg PO UD PRN MDD 4 TABS GIVE 2 TABS AFTER FIRST WATERY STOOL, GIVE AN ADDITIONAL 1 TAB AFTER EACH WATERY STOOL. DO NOT EXCEED 4 DOSES PER 24 HOURS Guaifenesin Dm Syrup (Guaifenesin/Dextromethorphan) 5 Ml Syrup 10 Ml PO Q4H PRN Milk of Magnesia (Magnesium Hydroxide) 400 Mg/5 Ml Oral.susp 30 Ml PO Q12H PRN Benadryl (Diphenhydramine HCl) 25 Mg Capsule 25-50 Mg PO Q6H PRN Pantoprazole Sodium 40 Mg Tablet.dr 40 Mg PO DAILY Olanzapine 10 Mg Tablet 10 Mg PO HS Tylenol (Acetaminophen) 325 Mg Tablet 650 Mg PO Q6H PRN TAKES 2 (325MG) TABLETS Miralax (Polyethylene Glycol 3350) 17 Gm Powd.pack 17 Gm PO DAILY Consulations Pulmonology, Surgery Patient Allergies: Coded Allergies: No Known Drug Allergies (Unverified , 08/08/13) Height (Feet): 5 Height (Inches): 6.00 Weight (Pounds): 139 Weight (Ounces): 0.0 Home Health Need/Face to Face Date of Face to Face: Dec 03, 2020 Clinical Findings: Muscle weakness, Shortness of breath I have seen Pt [id number]: Yes Discharged To: Home Diagnosis/Conditions: Dysphagia Recurrent aspiration pneumonia Debility Intellectual disability Problems/Diagnosis/Condition: (1) Debility (2) Dysphagia (3) Aspiration pneumonia (4) Intellectual disability Patient is Homebound due to: CognItive deficits, Shortness of breath/distress Homebound Status Due to the above stated illness, injury or surgical procedure (medical condition or diagnosis) and associated clinical findings, the patient is homebound because of his/her inability to leave home except with aid of a supportive device and/or person AND leaving the home requires a considerable and taxing effort or is medically contraindicated. Pt req the following assistanc: Aid of another person Home Health Nursing Orders Home Health Services Order: Nursing Services, Orthopaedic Technologist-Evaluate & Treat, Physical Therapy-Evaluate & Treat, Speech Language-Evaluate & Treat Home Health Infusion Therapy Line Start Date: Nov 19, 2020 Therapy Orders Therapy Orders: OT (must have SN or PT order), Physical Therapy Therapy Specific Orders: Teach strategies/cognitive deficits, Eval & treat dysphagia, Eval & treat aphasia, Restore ROM Certify Stmt I certify that this patient is under my care and that I, a nurse practitioner or a physician; a high school assistant principal working with me, had a face to face encounter that - meets the physician face to face encounter requirements with this patient as dated. Discharge Physical Exam General: Alert, No Acute Distress Lungs: Other (coarse breath sounds, no distress) Abdomen: Normal Bowel Sounds, Soft, No Tenderness, Other (PEG tube in place) Extremities: Other (edema) Neuro: Other (paraplegia) Psych/Mental Status: Other (uncooperative, nonverbal) ELYSSA ANTUNEZ MD Dec 03, 2020 12:31
[2020-12-03 15:32] VITALS: BP 95/52
[2020-12-04] MEDS ORDERED: KCL 20 MEQ TAB (K-DUR) PO SCH (09:00)
== END 2020-12-03 15:33 | DRG 177 ==
LOC: EDUNIT# 13:08 → ER 13:09 → CSD 15:20 → ICU 11-17 16:49 → CSD 11-18 07:05 → 4TH 11-19 10:14 → ICU 11-19 11:18 → 4TH 11-21 12:15
PROVIDERS: ADMIT Family Medicine; ATTEND Internal Medicine
PROC: 02HV33Z Insertion of Infusion Device into Superior Vena Cava, Percutaneous Approach (ICD-10-PCS; principal; 2020-11-19)
DX: J69.0 Pneumonitis due to inhalation of food and vomit (principal); J96.00 Acute respiratory failure, unspecified whether with hypoxia or hypercapnia; E43 Unspecified severe protein-calorie malnutrition; D61.818 Other pancytopenia; J90 Pleural effusion, not elsewhere classified; K94.23 Gastrostomy malfunction; R78.81 Bacteremia; G40.909 Epilepsy, unspecified, not intractable, without status epilepticus; Z20.822 Contact with and (suspected) exposure to COVID-19; F89 Unspecified disorder of psychological development; K21.9 Gastro-esophageal reflux disease without esophagitis; F41.9 Anxiety disorder, unspecified; F79 Unspecified intellectual disabilities; R13.10 Dysphagia, unspecified; E16.2 Hypoglycemia, unspecified; D64.9 Anemia, unspecified; D69.6 Thrombocytopenia, unspecified; I95.9 Hypotension, unspecified; R00.1 Bradycardia, unspecified; K20.80 Other esophagitis without bleeding; K25.9 Gastric ulcer, unspecified as acute or chronic, without hemorrhage or perforation; Z68.22 Body mass index [BMI] 22.0-22.9, adult
CPT/HCPCS: 36415; 71045; 71275; 80048; 80053; 80202; 82274; 82805; 82962; 83605; 83735; 83880; 84100; 84145; 85007; 85018; 85025; 85027; 85379; 85384; 85610; 85730; 86850; 86900; 86901; 86920; 87040; 87077; 87186; 87635; 93005; 93306; 94640; 94760; 96374

== ENCOUNTER 2020-12-25 12:23 | Emergency (ER) | payer MEDICARE, MEDICAID ==
[~2020-12-25] VITALS: Ht 160.2 cm; Wt 40.9 kg
[~2020-12-25 12:23] MED LIST changes: +FAMO-119 PEG; +FURO40TA4 PO; +GUAI100L13 PEG; +GUAI600T43 PO; +MELA1TAB51 PO; -MELA1TAB8 PO; +POTA20TA8 PO; +POTA40LI3 PEG
[2020-12-25 12:43] LABS: BASOPHILS % (AUTO) 0 % (0-10); EOSINOPHILS % (AUTO) 0 % (0-10); HEMATOCRIT 37 % (40-54); HEMOGLOBIN 11.7 g/dL (13.3-17.7); LYMPHOCYTES # (AUTO) 0.5 10^3/uL (1.0-4.0); LYMPHOCYTES % (AUTO) 6 % (12-44); MEAN CORPUSCULAR HEMOGLOBIN 30 pg (25-34); MEAN CORPUSCULAR HGB CONC 32 g/dL (32-36); MEAN CORPUSCULAR VOLUME 94 fL (80-99); MEAN PLATELET VOLUME 10.4 fL (9.0-12.2); MONOCYTES # (AUTO) 0.5 10^3/uL (0.0-1.0); MONOCYTES % (AUTO) 6 % (0-12); NEUTROPHILS # (AUTO) 8.4 10^3/uL (1.8-7.8); NEUTROPHILS % (AUTO) 88 % (42-75); PLATELET COUNT 296 10^3/uL (130-400); WHITE BLOOD COUNT 9.6 10^3/uL (4.3-11.0)
[2020-12-25 12:54] LABS: ALBUMIN 3.3 GM/DL (3.2-4.5)
[2020-12-25 12:55] LABS: CHLORIDE 101 MMOL/L (98-107); POTASSIUM 6.4 MMOL/L (3.6-5.0); SODIUM 141 MMOL/L (135-145)
[2020-12-25 12:56] LABS: CALCIUM 10.1 MG/DL (8.5-10.1)
[2020-12-25 12:57] LABS: GLUCOSE 99 MG/DL (70-105)
[2020-12-25 12:58] LABS: CARBON DIOXIDE 32 MMOL/L (21-32)
[2020-12-25 12:59] LABS: BILIRUBIN,TOTAL 0.3 MG/DL (0.1-1.0)
[2020-12-25 13:00] LABS: ALKALINE PHOSPHATASE 124 U/L (40-136)
[2020-12-25 13:01] LABS: CREATININE SERUM 0.74 MG/DL (0.60-1.30); GFR ESTIMATED > 60
[2020-12-25 13:02] LABS: BUN/CREATININE RATIO 55
[2020-12-25 13:03] LABS: ALANINE AMINOTRANSFERASE 36 U/L (0-55)
[2020-12-25 13:04] LABS: LIPASE 320 U/L (8-78)
[2020-12-25 13:05] LABS: BAND NEUTROPHILS 3 %; NEUTROPHILS % (MANUAL) 85 %
[2020-12-25 13:06] LABS: ANISOCYTOSIS SLIGHT; LYMPHOCYTES % (MANUAL) 7 %; MONOCYTES % (MANUAL) 5 %
--- NOTE | 2020-12-25 13:23 | Diagnostic Imaging Report ---
INDICATION: Hemoptysis. EXAMINATION: Portable chest at 1:02 PM. FINDINGS: There are some peripheral infiltrates in both lungs which have improved considerably since 11/27/2020. There is no effusion or pneumothorax. There is no appreciable retroperitoneal free air. IMPRESSION: Marked improvement in the lungs since 11/27/2020 with minimal faint residual interstitial infiltrate. Dictated by: Dictated on workstation # [id number]
--- NOTE | 2020-12-25 13:52 | ED Abdominal Pain ---
General Chief Complaint: Abdominal/GI Problems Stated Complaint: POSSIBLE GI BLEED Nursing Triage Note: TO ED PER EMS FROM [place] STAFF REPORT HAS BEEN VOMITING COFFEE GROUND THIS AM. HAS FEEDNG TUBE IN PLACE Sepsis Screen: No Definite Risk Source of Information: Patient Exam Limitations: No Limitations History of Present Illness Date Seen by Provider: Dec 25, 2020 Time Seen by Provider: 12:33 Initial Comments 65-year-old intellectually disabled male patient was brought to the emergency room by [facility] from [facility] for nausea and vomiting that started around 9:00 this morning. EMS and nursing staff report that the patient had 3 episodes of vomiting with the last one being of coffee-ground appearance. Patient has history of recent feeding tube placement and GI bleeds. Patient is nonverbal. Patient does have coffee-ground emesis on getting that was brought in with him. Timing/Duration: 1-3 Hours Associated Symptoms: Nausea/Vomiting Allergies and Home Medications Allergies Coded Allergies: No Known Drug Allergies (Unverified , 08/08/13) Home Medications Acetaminophen 325 Mg Tablet, 650 MG PO Q6H PRN for PAIN-MILD (1-4), (Reported) TAKES 2 (325MG) TABLETS Calcium Carbonate 500 Mg Tablet, 1,000 MG PO Q4H PRN for HOLMAN, (Reported) Cholecalciferol (Vitamin D3) 50 Mcg Capsule, 50 MCG PO DAILY, (Reported) Diphenhydramine HCl 25 Mg Capsule, 25-50 MG PO Q6H PRN for ALLERGY SYMPTOMS, (Reported) Docusate Sodium 100 Mg Tablet, 100 MG PO BID, (Reported) Famotidine 20 Mg Tablet, 20 MG PEG DAILY Prescribed by: ELYSSA ANTUNEZ on 12/03/20 1208 Furosemide 40 Mg Tablet, 40 MG PO DAILY Prescribed by: ELYSSA ANTUNEZ on 12/03/20 1153 Guaifenesin 100 Mg/5 Ml Liquid, 400 MG PEG TID Prescribed by: ELYSSA ANTUNEZ on 12/03/20 1206 Guaifenesin/Dextromethorphan 5 Ml Syrup, 10 ML PO Q4H PRN for COUGH, (Reported) Ibuprofen 200 Mg Tablet, 400 MG PO Q6H PRN for PAIN-MILD (1-4), (Reported) Loperamide HCl 2 Mg Capsule, 1-2 MG PO UD PRN for DIARRHEA, (Reported) GIVE 2 TABS AFTER FIRST WATERY STOOL, GIVE AN ADDITIONAL 1 TAB AFTER EACH WATERY STOOL. DO NOT EXCEED 4 DOSES PER 24 HOURS Magnesium Hydroxide 400 Mg/5 Ml Oral.susp, 30 ML PO Q12H PRN for CONSTIPATION- 7TH LINE, (Reported) Melatonin 5 Mg Tablet, 5 MG PO HS, (Reported) Menthol 5 Mg Lozenge, 5 MG MM Q1H PRN for COUGH, (Reported) Multivitamin 1 Each Tablet, 1 EACH PO DAILY, (Reported) Olanzapine 10 Mg Tablet, 10 MG PO HS, (Reported) Ondansetron 8 Mg Tab.rapdis, 16 MG PO TIDAC, (Reported) TAKES 2 (8MG) TABS Ondansetron 4 Mg Tab.rapdis, 4 MG PO Q8H PRN for NAUSEA/VOMITING-1ST LINE, (Reported) Ondansetron 4 Mg Tab.rapdis, 4 MG PO Q4H Prescribed by: LUCY ELLSWORTH on 12/25/20 1525 Polyethylene Glycol 3350 17 Gm Powd.pack, 17 GM PO DAILY, (Reported) Potassium Chloride 40 Meq/15 Ml Liquid, 20 MEQ PEG DAILY Prescribed by: ELYSSA ANTUNEZ on 12/03/20 1206 Tetrahydrozoline HCl 15 Ml Drops, 2 DROP OU Q6H PRN for REDNESS/IRRITATION, (Reported) Patient Home Medication List Home Medication List Reviewed: Yes Review of Systems Review of Systems Constitutional: see HPI; No chills, No fever Gastrointestinal: See HPI, Vomiting, Other (Coffee-ground emesis) All Other Systems Reviewed Negative Unless Noted: Yes Past Ythbvsw-Mpfbrc-Gssyci Hx Past Med/Social Hx: Reviewed Nursing Past Med/Soc Hx Patient Social History Alcohol Use: Denies Use Smoking Status: Unknown if Ever Smoked 2nd Hand Smoke Exposure: No Recent Infectious Disease Expo: No Recent Hopitalizations: No Immunizations Up To Date Tetanus Booster (TDap): Unknown PED Vaccines UTD: No Date of Pneumonia Vaccine: Aug 29, 2009 Date of Influenza Vaccine: Sep 29, 2017 Seasonal Allergies Seasonal Allergies: No Past Medical History Surgeries: Yes (CYST FROM CHEEK, PEG TUBE) Respiratory: No Currently Using CPAP: No Currently Using BIPAP: No Cardiac: No Neurological: Yes (MR) Developmental Disorder, Seizure Disorder Reproductive Disorders: No Sexually Transmitted Disease: No HIV/AIDS: No Genitourinary: No Gastrointestinal: Yes Gastroesophageal Reflux, Gastrointestinal Bleed, Chronic Constipation, Esophagitis, Ulcer, Gall Bladder Disease Musculoskeletal: Yes (foot deforminties) Endocrine: No HEENT: No Loss of Vision: Denies Cancer: No Psychosocial: Yes Anxiety Integumentary: No Blood Disorders: No Family Medical History Reviewed Nursing Family Hx Patient reports no known family medical history. No Pertinent Family Hx Physical Exam Vital Signs Vital Signs - First Documented 12/25/20 12:28 Temp 35.6 Pulse 65 Resp 18 B/P (MAP) 108/65 (79) Pulse Ox 100 Capillary Refill : Less Than 3 Seconds Height/Weight/BMI Height: 5'6.00" Weight: 139lbs. 0.0oz. [id number]; 15.00 BMI Method:Actual General Appearance: WD/WN, no apparent distress Respiratory: chest non-tender, lungs clear, normal breath sounds, no respiratory distress, no accessory muscle use Cardiovascular: normal peripheral pulses, regular rate, rhythm, no edema, no gallop, no JVD, no murmur Gastrointestinal: normal bowel sounds, non tender, soft, no organomegaly, no pulsatile mass Skin: normal color, warm/dry Progress/Results/Core Measures Results/Orders Lab Results Laboratory Tests Test 12/25/20 12:36 12/25/20 15:15 Range/Units White Blood Count 9.6 4.3-11.0 10^3/uL Red Blood Count 3.90 L 4.30-5.52 10^6/uL Hemoglobin 11.7 L 13.3-17.7 g/dL Hematocrit 37 L 40-54 % Mean Corpuscular Volume 94 80-99 fL Mean Corpuscular Hemoglobin 30 25-34 pg Mean Corpuscular Hemoglobin Concent 32 32-36 g/dL Red Cell Distribution Width 16.8 H 10.0-14.5 % Platelet Count 296 130-400 10^3/uL Mean Platelet Volume 10.4 9.0-12.2 fL Immature Granulocyte % (Auto) 0 % Neutrophils (%) (Auto) 88 H 42-75 % Lymphocytes (%) (Auto) 6 L 12-44 % Monocytes (%) (Auto) 6 0-12 % Eosinophils (%) (Auto) 0 0-10 % Basophils (%) (Auto) 0 0-10 % Neutrophils # (Auto) 8.4 H 1.8-7.8 10^3/uL Lymphocytes # (Auto) 0.5 L 1.0-4.0 10^3/uL Monocytes # (Auto) 0.5 0.0-1.0 10^3/uL Eosinophils # (Auto) 0.0 0.0-0.3 10^3/uL Basophils # (Auto) 0.0 0.0-0.1 10^3/uL Immature Granulocyte # (Auto) 0.0 0.0-0.1 10^3/uL Neutrophils % (Manual) 85 % Lymphocytes % (Manual) 7 % Monocytes % (Manual) 5 % Band Neutrophils 3 % Anisocytosis SLIGHT Sodium Level 141 135-145 MMOL/L Potassium Level 6.4 H 5.0 3.6-5.0 MMOL/L Chloride Level 101 98-107 MMOL/L Carbon Dioxide Level 32 21-32 MMOL/L Anion Gap 8 5-14 MMOL/L Blood Urea Nitrogen 41 H 7-18 MG/DL Creatinine 0.74 0.60-1.30 MG/DL Estimat Glomerular Filtration Rate > 60 BUN/Creatinine Ratio 55 Glucose Level 99 70-105 MG/DL Calcium Level 10.1 8.5-10.1 MG/DL Corrected Calcium 10.7 H 8.5-10.1 MG/DL Total Bilirubin 0.3 0.1-1.0 MG/DL Aspartate Amino Transf (AST/SGOT) 49 H 5-34 U/L Alanine Aminotransferase (ALT/SGPT) 36 0-55 U/L Alkaline Phosphatase 124 40-136 U/L Total Protein 8.0 6.4-8.2 GM/DL Albumin 3.3 3.2-4.5 GM/DL Lipase 320 H 8-78 U/L My Orders Orders - LUCY ELLSWORTH Comprehensive Metabolic Panel (12/25/20 12:33) Lipase (12/25/20 12:33) Ua Culture If Indicated (12/25/20 12:33) Ed Iv/Invasive Line Start (12/25/20 12:33) Cbc With Automated Diff (12/25/20 12:33) Chest 1 View, Ap/Pa Only (12/25/20 12:33) Type And Screen (12/25/20 12:43) Manual Differential (12/25/20 12:36) Potassium (12/25/20 14:58) Pantoprazole Injection (Protonix Injecti (12/25/20 15:30) Medications Given in ED Current Medications Medications Dose Ordered Sig/Yoel Route Start Time Stop Time Status Last Admin Dose Admin Pantoprazole 40 mg ONCE ONCE IV 12/25/20 15:30 12/25/20 15:31 DC 12/25/20 15:39 40 MG Vital Signs/I&O 12/25/20 12:28 Temp 35.6 Pulse 65 Resp 18 B/P (MAP) 108/65 (79) Pulse Ox 100 Blood Pressure Mean: 79 Progress Progress Note : Time: 15:10 Progress Note I have seen and evaluated the patient. I have discussed the case with Dr. THOMAS. He recommends since the patient's hemoglobin is stable to give him a dose of Protonix IV here and have him follow-up outpatient within 1 week. He believes that the patient is having gastritis. He recommends sending nausea medication home for the patient and continue normal feedings through feeding tube. Patient has chronic elevated amylase and lipase. Departure Impression Primary Impression: Gastritis Additional Impression: Nausea and vomiting Disposition: HOME, SELF-CARE Condition: Stable/Unchanged Departure-Patient Inst. Decision time for Depature: 15:24 Referrals: JUSTIN DUNBAR DO (PCP/Family) Primary Care Physician Patient Instructions: Gastritis Add. Discharge Instructions: You may resume tube feedings once the patient's nausea and vomiting is under control. Give the patient has nausea medicine 30 minutes before feedings. Call Dr. THOMAS's office today to schedule an appointment for follow-up and to schedule a scope. Return back to the emergency room for worsening symptoms or concerns as needed. All discharge instructions reviewed with patient and/or family. Voiced understanding. Scripts Ondansetron (Ondansetron Odt) 4 Mg Tab.rapdis 4 MG PO Q4H, #30 TAB Prov: LUCY ELLSWORTH 12/25/20 LUCY ELLSWORTH Dec 25, 2020 13:52
[2020-12-25] MEDS ORDERED: ONDA4TAB11 PO (15:25)
[2020-12-25] MEDS ORDERED: PANTOPRAZOLE 40 MG (PROTONIX) VIAL IV ONE (15:30)
--- NOTE | 2020-12-25 16:12 | NUR ---
STAFF CALLED TO COME GET HIM BY LUCY ELLSWORTH APRN
[2020-12-25 16:38] VITALS: BP 93/66
== END 2020-12-25 16:37 | disposition home or self-care (01) ==
LOC: EDUNIT# 12:23 → ER 12:25
DX: K29.70 Gastritis, unspecified, without bleeding (principal); R11.2 Nausea with vomiting, unspecified; K21.9 Gastro-esophageal reflux disease without esophagitis
CPT/HCPCS: 36415; 71045; 80053; 83690; 84132; 85007; 85027; 86850; 86900; 86901

== ENCOUNTER 2020-12-31 10:30 | Inpatient (IN) | payer MEDICARE, MEDICAID ==
[~2020-12-31] VITALS: Ht 160 cm; Wt 51.1 kg
[~2020-12-31 10:30] MED LIST changes: +MAGN400O7 PEG; -MAGN400O7 PO; +MELA5TAB14 PEG; -MELA5TAB14 PO; +OLAN10TA19 PEG; -OLAN10TA19 PO; +POLY17PO6 PEG
[2020-12-31] MEDS ORDERED: NS IV 500 ML 500 ML IV ONE (10:45)
[2020-12-31 11:15] LABS: CLARITY,URINE SLIGHTLY CLOUDY; COLOR,URINE YELLOW; GLUCOSE, URINE (UA) NEGATIVE (NEGATIVE); PH,URINE 7.5 (5-9); PROTEIN,URINE 1+ (NEGATIVE)
[2020-12-31 11:16] LABS: BACTERIA,URINE LARGE /HPF; BILIRUBIN,URINE NEGATIVE (NEGATIVE); KETONES,URINE NEGATIVE (NEGATIVE); LEUKOCYTE ESTERASE ,URINE 3+ (NEGATIVE); NITRITE,URINE NEGATIVE (NEGATIVE); WBC,URINE >100 /HPF
--- NOTE | 2020-12-31 11:46 | ED General ---
General Chief Complaint: Altered Mental Status Stated Complaint: AMS Nursing Triage Note: PT BROUGHT IN BY [facility] WITH COMPLAINT OF ALT MENTAL STATUS AND HYPOTENSION. PER [facility], PTS BP WAS 60/30. FOR EMS, BP WAS IN THE 90s. PT IS NONVERBAL. Nursing Sepsis Screen: No Definite Risk Source of Information: Patient Exam Limitations: No Limitations History of Present Illness Date Seen by Provider: Dec 31, 2020 Time Seen by Provider: 11:41 Initial Comments Here by EMS from [facility] facility where patient was noted to be hypotensive and not acting himself. Patient is severely mentally disabled with feeding tube. No report of fever or other illness from the facility. Has been seen previously for similar. EMS reports BP in the 90s. Patient is nonverbal and this is typical. No report of vomiting or diarrhea. Unable to get history from the patient due to underlying medical condition. Per brother, patient remains full code. Timing/Duration: 1 Week, Getting Worse Severity: Moderate, Severe Associated Systoms: No Fever/Chills, No Nausea/Vomiting Allergies and Home Medications Allergies Coded Allergies: No Known Drug Allergies (Unverified , 08/08/13) Home Medications Acetaminophen 325 Mg Tablet, 650 MG PO Q6H PRN for PAIN-MILD (1-4), (Reported) TAKES 2 (325MG) TABLETS Calcium Carbonate 500 Mg Tablet, 1,000 MG PO Q4H PRN for HOLMAN, (Reported) Cholecalciferol (Vitamin D3) 50 Mcg Capsule, 50 MCG PO DAILY, (Reported) Diphenhydramine HCl 25 Mg Capsule, 25-50 MG PO Q6H PRN for ALLERGY SYMPTOMS, (Reported) Docusate Sodium 100 Mg Tablet, 100 MG PO BID, (Reported) Famotidine 20 Mg Tablet, 20 MG PEG DAILY Prescribed by: ELYSSA ANTUNEZ on 12/03/20 1208 Furosemide 40 Mg Tablet, 40 MG PO DAILY Prescribed by: ELYSSA ANTUNEZ on 12/03/20 1153 Guaifenesin 100 Mg/5 Ml Liquid, 400 MG PEG TID Prescribed by: ELYSSA ANTUNEZ on 12/03/20 1206 Guaifenesin/Dextromethorphan 5 Ml Syrup, 10 ML PO Q4H PRN for COUGH, (Reported) Ibuprofen 200 Mg Tablet, 400 MG PO Q6H PRN for PAIN-MILD (1-4), (Reported) Loperamide HCl 2 Mg Capsule, 1-2 MG PO UD PRN for DIARRHEA, (Reported) GIVE 2 TABS AFTER FIRST WATERY STOOL, GIVE AN ADDITIONAL 1 TAB AFTER EACH WATERY STOOL. DO NOT EXCEED 4 DOSES PER 24 HOURS Magnesium Hydroxide 400 Mg/5 Ml Oral.susp, 30 ML PO Q12H PRN for CONSTIPATION- 7TH LINE, (Reported) Melatonin 5 Mg Tablet, 5 MG PO HS, (Reported) Menthol 5 Mg Lozenge, 5 MG MM Q1H PRN for COUGH, (Reported) Multivitamin 1 Each Tablet, 1 EACH PO DAILY, (Reported) Olanzapine 10 Mg Tablet, 10 MG PO HS, (Reported) Ondansetron 8 Mg Tab.rapdis, 16 MG PO TIDAC, (Reported) TAKES 2 (8MG) TABS Ondansetron 4 Mg Tab.rapdis, 4 MG PO Q8H PRN for NAUSEA/VOMITING-1ST LINE, (Reported) Ondansetron 4 Mg Tab.rapdis, 4 MG PO Q4H Prescribed by: LUCY ELLSWORTH on 12/25/20 1525 Polyethylene Glycol 3350 17 Gm Powd.pack, 17 GM PO DAILY, (Reported) Potassium Chloride 40 Meq/15 Ml Liquid, 20 MEQ PEG DAILY Prescribed by: ELYSSA ANTUNEZ on 12/03/20 1206 Tetrahydrozoline HCl 15 Ml Drops, 2 DROP OU Q6H PRN for REDNESS/IRRITATION, (Reported) Patient Home Medication List Home Medication List Reviewed: Yes Review of Systems Review of Systems Constitutional: see HPI; No fever Gastrointestinal: No diarrhea, No vomiting Unable to complete review of systems due to underlying medical condition Past Ojitphf-Ylqsbx-Hmebth Hx Past Med/Social Hx: Reviewed Nursing Past Med/Soc Hx Patient Social History Alcohol Use: Denies Use Smoking Status: Never a Smoker 2nd Hand Smoke Exposure: No Recent Infectious Disease Expo: No Recent Hopitalizations: No Immunizations Up To Date Tetanus Booster (TDap): Unknown PED Vaccines UTD: No Date of Pneumonia Vaccine: Aug 29, 2009 Date of Influenza Vaccine: Sep 29, 2017 Seasonal Allergies Seasonal Allergies: No Past Medical History Surgeries: Yes (CYST FROM CHEEK, PEG TUBE) Respiratory: No Currently Using CPAP: No Currently Using BIPAP: No Cardiac: No Neurological: Yes (MR) Developmental Disorder, Seizure Disorder Reproductive Disorders: No Sexually Transmitted Disease: No HIV/AIDS: No Genitourinary: No Gastrointestinal: Yes Gastroesophageal Reflux, Gastrointestinal Bleed, Chronic Constipation, Esophagitis, Ulcer, Gall Bladder Disease Musculoskeletal: Yes (foot deforminties) Endocrine: No HEENT: No Loss of Vision: Denies Cancer: No Psychosocial: Yes Anxiety Integumentary: No Blood Disorders: No Family Medical History Reviewed Nursing Family Hx Patient reports no known family medical history. No Pertinent Family Hx Physical Exam-Suspected Sepsis Physical Exam Vital Signs Vital Signs - First Documented 12/31/20 12/31/20 12/31/20 10:32 15:30 16:26 Temp 35.0 Pulse 55 Resp 21 B/P (MAP) 88/60 (69) Pulse Ox 99 O2 Delivery Room Air FiO2 21 Capillary Refill : Less Than 3 Seconds Blood Pressure Mean: 69 Height, Weight, BMI Height: 5'6.00" Weight: 139lbs. 0.0oz. 63.899275pb; 15.00 BMI Method:Actual General Appearance: No Apparent Distress, Chronically ill HEENT: PERRL/EOMI, Other (Mucous membranes dry) Neck: Non Tender; No Lymphadenopathy (L), No Lymphadenopathy (R) Respiratory: Lungs Clear, Normal Breath Sounds Cardiovascular: Regular Rate, Rhythm, No Murmur Gastrointestinal: Non Tender, Soft Back: No CVA Tenderness, No Vertebral Tenderness Extremity: Normal Capillary Refill, Other (Cachectic appearing limbs. Labs drawn up x4.) Neurologic/Psychiatric: Other (Eyes open and nonverbal. Does not follow commands. Reported as baseline.) Skin: warm/dry; No ulcerations Focused Exam Lactate Level 12/31/20 11:55: Lactic Acid Level 0.93 Lactic Acid Level Progress/Results/Core Measures Suspected Sepsis Recent Fever Within 48 Hours: No Infection Criteria Present: None New/Unexplained Altered Menta: No Sepsis Screen: No Definite Risk SIRS Temperature: Pulse: 55 Respiratory Rate: 21 Laboratory Tests 12/31/20 11:42: White Blood Count 5.0 Blood Pressure 88 /60 Mean: 69 12/31/20 11:55: Lactic Acid Level 0.93 Laboratory Tests 12/31/20 11:42: Creatinine 0.77, INR Comment 1.0, Platelet Count 104L, Total Bilirubin 0.3 Results/Orders Lab Results Laboratory Tests Test 12/31/20 10:52 12/31/20 11:42 12/31/20 11:55 Range/Units Urine Color YELLOW Urine Clarity SLIGHTLY CLOUDY Urine pH 7.5 5-9 Urine Specific [place] 1.010 L 1.016-1.022 Urine Protein 1+ H NEGATIVE Urine Glucose (UA) NEGATIVE NEGATIVE Urine Ketones NEGATIVE NEGATIVE Urine Nitrite NEGATIVE NEGATIVE Urine Bilirubin NEGATIVE NEGATIVE Urine Urobilinogen 0.2 < = 1.0 MG/DL Urine Leukocyte Esterase 3+ H NEGATIVE Urine RBC (Auto) 1+ H NEGATIVE Urine RBC 10-25 H /HPF Urine WBC >100 H /HPF Urine Crystals NONE /LPF Urine Bacteria LARGE H /HPF Urine Casts NONE /LPF Urine Mucus NEGATIVE /LPF Urine Culture Indicated YES White Blood Count 5.0 4.3-11.0 10^3/uL Red Blood Count 2.76 L 4.30-5.52 10^6/uL Hemoglobin 8.5 #L 13.3-17.7 g/dL Hematocrit 27 L 40-54 % Mean Corpuscular Volume 98 80-99 fL Mean Corpuscular Hemoglobin 31 25-34 pg Mean Corpuscular Hemoglobin Concent 32 32-36 g/dL Red Cell Distribution Width 16.9 H 10.0-14.5 % Platelet Count 104 L 130-400 10^3/uL Mean Platelet Volume 11.2 9.0-12.2 fL Immature Granulocyte % (Auto) 0 % Neutrophils (%) (Auto) 73 42-75 % Lymphocytes (%) (Auto) 17 12-44 % Monocytes (%) (Auto) 7 0-12 % Eosinophils (%) (Auto) 3 0-10 % Basophils (%) (Auto) 0 0-10 % Neutrophils # (Auto) 3.7 1.8-7.8 10^3/uL Lymphocytes # (Auto) 0.9 L 1.0-4.0 10^3/uL Monocytes # (Auto) 0.4 0.0-1.0 10^3/uL Eosinophils # (Auto) 0.1 0.0-0.3 10^3/uL Basophils # (Auto) 0.0 0.0-0.1 10^3/uL Immature Granulocyte # (Auto) 0.0 0.0-0.1 10^3/uL Prothrombin Time 13.6 12.2-14.7 SEC INR Comment 1.0 0.8-1.4 Activated Partial Thromboplast Time 40 H 24-35 SEC Sodium Level 146 H 135-145 MMOL/L Potassium Level 4.4 3.6-5.0 MMOL/L Chloride Level 109 H 98-107 MMOL/L Carbon Dioxide Level 31 21-32 MMOL/L Anion Gap 6 5-14 MMOL/L Blood Urea Nitrogen 54 H 7-18 MG/DL Creatinine 0.77 0.60-1.30 MG/DL Estimat Glomerular Filtration Rate > 60 BUN/Creatinine Ratio 70 Glucose Level 74 70-105 MG/DL Calcium Level 9.6 8.5-10.1 MG/DL Corrected Calcium 10.6 H 8.5-10.1 MG/DL Total Bilirubin 0.3 0.1-1.0 MG/DL Aspartate Amino Transf (AST/SGOT) 29 5-34 U/L Alanine Aminotransferase (ALT/SGPT) 33 0-55 U/L Alkaline Phosphatase 105 40-136 U/L C-Reactive Protein High Sensitivity 2.69 H 0.00-0.50 MG/DL Total Protein 7.0 6.4-8.2 GM/DL Albumin 2.8 L 3.2-4.5 GM/DL Procalcitonin 0.10 H <0.10 NG/ML Lactic Acid Level 0.93 0.50-2.00 MMOL/L My Orders Orders - TALHA GILL MD Cbc With Automated Diff (12/31/20 10:35) Comprehensive Metabolic Panel (12/31/20 10:35) Hs C Reactive Protein (12/31/20 10:35) Procalcitonin (Pct) (12/31/20 10:35) Ua Culture If Indicated (12/31/20 10:35) Ed Iv/Invasive Line Start (12/31/20 10:35) Ns Iv 500 Ml (Sodium Chloride 0.9%) (12/31/20 10:45) Urine Culture (12/31/20 10:52) Blood Culture (12/31/20 11:34) Protime With Inr (12/31/20 11:34) Partial Thromboplastin Time (12/31/20 11:34) Chest 1 View, Ap/Pa Only (12/31/20 11:34) Vital Signs Adult Sepsis Patie Q15M (12/31/20 11:34) O2 (12/31/20 11:34) Remove Rings In Anticipation O (12/31/20 11:34) Lactic Acid Analyzer (12/31/20 11:34) Ns Iv 1000 Ml (Sodium Chloride 0.9%) (12/31/20 12:15) Iohexol Injection (Omnipaque 350 Mg/Ml 1 (12/31/20 13:45) Received Contrast (Hold Metformin- Contr (12/31/20 13:45) Sodium Chloride Flush (Catheter Flush Sy (12/31/20 13:45) Ns (Ivpb) (Sodium Chloride 0.9% Ivpb Bag (12/31/20 13:45) Piperacillin Sodium/Tazobactam (Zosyn Vi (12/31/20 13:45) Ns Iv 1000 Ml (Sodium Chloride 0.9%) (12/31/20 14:23) Venous Access Request Order (12/31/20 14:28) Medications Given in ED Current Medications Medications Dose Ordered Sig/Yoel Route Start Time Stop Time Status Last Admin Dose Admin Iohexol 66 ml ONCE ONCE IV 12/31/20 13:45 12/31/20 13:46 DC 12/31/20 13:58 66 ML Piperacillin Sod/ Tazobactam Sod 4.5 gm/Sodium Chloride 100 ml @ 200 mls/hr ONCE ONCE IV 12/31/20 13:45 12/31/20 14:14 DC 12/31/20 14:32 200 MLS/HR Sodium Chloride 10 ml NEEDED PRN IV 12/31/20 13:45 12/31/20 13:59 10 ML Sodium Chloride 100 ml ONCE ONCE IV 12/31/20 13:45 12/31/20 13:46 DC 12/31/20 13:59 80 ML Sodium Chloride 500 ml @ 0 mls/hr Q0M ONCE IV 12/31/20 10:45 12/31/20 10:46 DC 12/31/20 10:41 500 MLS/HR Sodium Chloride 1,000 ml @ 0 mls/hr Q0M ONCE IV 12/31/20 12:15 12/31/20 12:16 DC 12/31/20 12:06 0 MLS/HR Vital Signs/I&O 12/31/20 12/31/20 12/31/20 12/31/20 10:32 14:54 15:30 15:37 Temp 35.0 Pulse 55 52 Resp 21 16 B/P (MAP) 88/60 (69) 106/65 Pulse Ox 99 100 100 O2 Delivery Room Air Room Air Room Air 12/31/20 12/31/20 12/31/20 12/31/20 15:45 16:00 16:26 16:45 Temp 35.0 Pulse 49 49 55 47 Resp 17 21 B/P (MAP) 100/56 (71) 96/56 (69) Pulse Ox 100 100 99 O2 Delivery Room Air Room Air FiO2 21 12/31/20 18:00 Pulse 47 Resp 7 B/P (MAP) 94/59 (71) Pulse Ox 100 O2 Delivery Room Air Capillary Refill : Less Than 3 Seconds Blood Pressure Mean: 69 Progress Note : Progress Note Seen and evaluated. IV, labs, UA and normal saline 500 mL bolus ordered. Monitor patient. 1130: Patient noted to have UTI. Blood cultures and lactic acid as well as sepsis protocol initiated. 1315: Patient has findings of concern of free air under the diaphragm on chest x-ray. CT abdomen pelvis ordered. We will continue IV fluid bolus 1 L due to intermittent hypotension. Monitor patient. 1330: I did discuss the case with Dr. Antunez and he accepts patient for admission pending CT scan for UTI and left lower lobe pneumonia. Can hassan well-known to Dr. Antunez and patient does have history of aspiration pneumonia. We will initiate Zosyn and vancomycin. 1430: Patient's blood pressure has improved to the 110s systolic with a MAP greater than 65. Normal saline at 250 an hour as running with Zosyn 4.5 g IV. Patient to be admitted to the ICU. Patient remains full code and is julien of the community health. Nursing to notify brother of admission. We will order PICC line in case pressors are needed and for administration of multiple antibiotics and requirements for frequent blood draws. Admit to the ICU, inpatient status. I attest to focused exam at this time. Blood pressure remained greater than 90 systolic and greater than 65 MAP on fluids and pressors not required currently but will be consideration for future if blood pressure worsens. Diagnostic Imaging Diagonstic Imaging: Xray Plain Films/CT/US/NM/MRI: chest Comments [facility]. [place], [place] NAME: [facility]IRT [facility] REC#: [id number] PT STATUS: REG ER : 1955 PHYSICIAN: TALHA GILL MD ADMIT DATE: 12/31/20/ER Draft Date of Exam:12/31/20 CHEST 1 VIEW, AP/PA ONLY INDICATION: Sepsis. COMPARISON: 12/25/2020. TECHNIQUE: Single radiograph of the chest dated 12/31/2020. FINDINGS: The cardiac silhouette is within normal limits in size. No significant pulmonary vascular congestion. Bilateral predominantly interstitial infiltrates are again identified. This appears improved within the right upper lung although slightly worsened within the left lung base. No significant pleural effusion. Crescentic lucency is noted overlying the right lung base/right upper abdomen, not definitely seen on the most recent radiographs of the chest. No apical pneumothorax. No acute osseous abnormality. IMPRESSION: Crescentic lucency overlying the right lung base/right upper abdomen. Findings are concerning for free intraperitoneal air. Recommend clinical correlation for recent surgery. Subpulmonic pneumothorax would be an additional consideration. If there is no clinical reason for free intraperitoneal gas, a CT of the abdomen and pelvis would be recommended for further evaluation. Persistent bilateral pulmonary interstitial opacities, improved within the right upper lung although worsened within the left lower lung. The report was called to Khang Heath APRN, in the ER by lisa@1:15 PM. Dictated on workstation # [id number] Dict: 12/31/20 1303 Trans: 12/31/20 1314 [id number] Interpreted by: ARIEL PACE MD Electronically signed by: Diagonstic Imaging: CT Plain Films/CT/US/NM/MRI: abdomen, pelvis Comments [facility] [place] [place] NAME: KIRT THOMPSON [facility] REC#: [id number] PT STATUS: REG ER : 1955 PHYSICIAN: KHANG HEATH APRN ADMIT DATE: 12/31/20/ER Draft Date of Exam:12/31/20 CT CHEST/ABDOMEN/PELVIS W PROCEDURE: CT chest, abdomen, and pelvis with contrast. TECHNIQUE: Multiple contiguous axial images were obtained through the chest, abdomen, and pelvis after the administration of intravenous contrast. Auto Exposure Controls were utilized during the CT exam to meet ALARA standards for radiation dose reduction. INDICATION: Questionable pneumoperitoneum noted on today's chest radiograph. The study is performed for further evaluation. COMPARISON: Correlation is made with chest radiograph from earlier the same day. Correlation is also made with prior CT angiogram of the chest from 11/17/[address] abdomen and pelvis from 11/07/2020. FINDINGS: CT chest: No definite axillary, hilar or mediastinal lymphadenopathy is detected. No pericardial or pleural fluid is identified. Parenchymal evaluation does demonstrate some patchy infiltrates in bilateral upper lobes. There is some patchy groundglass infiltrates in bilateral lower lobes as well as lingula. IMPRESSION: Patchy bilateral pulmonary infiltrates suggestive of pneumonia. CT abdomen and pelvis: No definite free air is identified. Air density noted on chest radiograph most likely represented colon interposed between the liver and hemidiaphragm. The liver and spleen are unremarkable. Pancreas, adrenal glands and kidneys are unremarkable. There is a large stool load throughout the colon consistent with constipation. Small bowel does not appear to be appreciably dilated. Patient does have a G-tube in place. There is no free fluid or fluid collection. Bladder is unremarkable. Prostate is enlarged. IMPRESSION: 1. No evidence of pneumoperitoneum. 2. Large stool load consistent with constipation. 3. Prostatomegaly. Dictated on workstation # [id number] Dict: 12/31/20 1413 Trans: 12/31/20 1420 [facility] [id number] Interpreted by: NAVI ERICKSON MD Electronically signed by: Departure Communication (Admissions) Time/Spoke to Admitting Phy: 13:30 Impression Primary Impression: Left lower lobe pneumonia Qualified Codes: J18.9 - Pneumonia, unspecified organism Additional Impressions: Urinary tract infection Qualified Codes: N30.00 - Acute cystitis without hematuria Severe sepsis Disposition: ADMITTED INPATIENT Condition: Critical Admissions Decision to Admit Reason: Admit from ER (General) Decision to Admit/Date: Dec 31, 2020 Time/Decision to Admit Time: 13:30 Departure-Patient Inst. Referrals: JUSTIN DUNBAR DO (PCP/Family) Primary Care Physician TALHA GILL MD Dec 31, 2020 11:46
[2020-12-31 12:03] LABS: HEMOGLOBIN 8.5 g/dL (13.3-17.7); MEAN CORPUSCULAR VOLUME 98 fL (80-99)
[2020-12-31 12:05] LABS: BASOPHILS % (AUTO) 0 % (0-10); EOSINOPHILS # (AUTO) 0.1 10^3/uL (0.0-0.3); EOSINOPHILS % (AUTO) 3 % (0-10); HEMATOCRIT 27 % (40-54); LYMPHOCYTES # (AUTO) 0.9 10^3/uL (1.0-4.0); LYMPHOCYTES % (AUTO) 17 % (12-44); MEAN CORPUSCULAR HEMOGLOBIN 31 pg (25-34); MEAN CORPUSCULAR HGB CONC 32 g/dL (32-36); MEAN PLATELET VOLUME 11.2 fL (9.0-12.2); MONOCYTES # (AUTO) 0.4 10^3/uL (0.0-1.0); MONOCYTES % (AUTO) 7 % (0-12); NEUTROPHILS # (AUTO) 3.7 10^3/uL (1.8-7.8); NEUTROPHILS % (AUTO) 73 % (42-75); PLATELET COUNT 104 10^3/uL (130-400)
[2020-12-31 12:14] LABS: ALBUMIN 2.8 GM/DL (3.2-4.5); CHLORIDE 109 MMOL/L (98-107); POTASSIUM 4.4 MMOL/L (3.6-5.0); PROTHROMBIN TIME PATIENT 13.6 SEC (12.2-14.7); SODIUM 146 MMOL/L (135-145)
[2020-12-31 12:15] LABS: CALCIUM 9.6 MG/DL (8.5-10.1)
[2020-12-31] MEDS ORDERED: NS IV 1000 ML 1,000 ML IV ONE (12:15)
[2020-12-31 12:16] LABS: GLUCOSE 74 MG/DL (70-105)
[2020-12-31 12:17] LABS: CARBON DIOXIDE 31 MMOL/L (21-32)
[2020-12-31 12:18] LABS: BILIRUBIN,TOTAL 0.3 MG/DL (0.1-1.0)
[2020-12-31 12:19] LABS: ALKALINE PHOSPHATASE 105 U/L (40-136)
[2020-12-31 12:20] LABS: CREATININE SERUM 0.77 MG/DL (0.60-1.30); GFR ESTIMATED > 60
[2020-12-31 12:21] LABS: BUN/CREATININE RATIO 70
[2020-12-31 12:23] LABS: ALANINE AMINOTRANSFERASE 33 U/L (0-55)
--- NOTE | 2020-12-31 13:14 | Diagnostic Imaging Report ---
INDICATION: Sepsis. COMPARISON: 12/25/2020. TECHNIQUE: Single radiograph of the chest dated 12/31/2020. FINDINGS: The cardiac silhouette is within normal limits in size. No significant pulmonary vascular congestion. Bilateral predominantly interstitial infiltrates are again identified. This appears improved within the right upper lung although slightly worsened within the left lung base. No significant pleural effusion. Crescentic lucency is noted overlying the right lung base/right upper abdomen, not definitely seen on the most recent radiographs of the chest. No apical pneumothorax. No acute osseous abnormality. IMPRESSION: Crescentic lucency overlying the right lung base/right upper abdomen. Findings are concerning for free intraperitoneal air. Recommend clinical correlation for recent surgery. Subpulmonic pneumothorax would be an additional consideration. If there is no clinical reason for free intraperitoneal gas, a CT of the abdomen and pelvis would be recommended for further evaluation. Persistent bilateral pulmonary interstitial opacities, improved within the right upper lung although worsened within the left lower lung. The report was called to Khang Heath APRN, in the ER by lisa@1:15 PM. Dictated by: Dictated on workstation # [id number]
[2020-12-31] MEDS ORDERED: IOHEXOL 350 MG/ML 100 ML (OMNIPAQUE 350) VIAL IV ONE (13:45)
[2020-12-31] MEDS ORDERED: PIPERACILLIN SODIUM/TAZOBACTAM 4.5 GM in NS (IVPB) 100 ML IV ONE (13:45)
[2020-12-31] MEDS ORDERED: CATHETER FLUSH 10 ML SYR IV PRN (13:45)
[2020-12-31] MEDS ORDERED: NS 100 ML (IVPB) BAG IV ONE (13:45)
[2020-12-31] MEDS ORDERED: HOLD METFORMIN - RECEIVED CONTRAST 20 ML VIAL IV SCH (13:45)
--- NOTE | 2020-12-31 14:20 | Diagnostic Imaging Report ---
PROCEDURE: CT chest, abdomen, and pelvis with contrast. TECHNIQUE: Multiple contiguous axial images were obtained through the chest, abdomen, and pelvis after the administration of intravenous contrast. Auto Exposure Controls were utilized during the CT exam to meet ALARA standards for radiation dose reduction. INDICATION: Questionable pneumoperitoneum noted on today's chest radiograph. The study is performed for further evaluation. COMPARISON: Correlation is made with chest radiograph from earlier the same day. Correlation is also made with prior CT angiogram of the chest from 11/17/[address] abdomen and pelvis from 11/07/2020. FINDINGS: CT chest: No definite axillary, hilar or mediastinal lymphadenopathy is detected. No pericardial or pleural fluid is identified. Parenchymal evaluation does demonstrate some patchy infiltrates in bilateral upper lobes. There is some patchy groundglass infiltrates in bilateral lower lobes as well as lingula. IMPRESSION: Patchy bilateral pulmonary infiltrates suggestive of pneumonia. CT abdomen and pelvis: No definite free air is identified. Air density noted on chest radiograph most likely represented colon interposed between the liver and hemidiaphragm. The liver and spleen are unremarkable. Pancreas, adrenal glands and kidneys are unremarkable. There is a large stool load throughout the colon consistent with constipation. Small bowel does not appear to be appreciably dilated. Patient does have a G-tube in place. There is no free fluid or fluid collection. Bladder is unremarkable. Prostate is enlarged. IMPRESSION: 1. No evidence of pneumoperitoneum. 2. Large stool load consistent with constipation. 3. Prostatomegaly. Dictated by: Dictated on workstation # [id number]
[2020-12-31] MEDS ORDERED: NS IV 1000 ML 1,000 ML ONE (14:23)
[2020-12-31] MEDS ORDERED: NS IV 1000 ML 1,000 ML IV SCH (14:30)
[2020-12-31] MEDS ORDERED: ONDANSETRON 4 MG/2 ML (SDV) Z0FRAN IVP PRN (15:30)
[2020-12-31] MEDS ORDERED: EPINEPHrine 1 MG INJECTION 4 MG in NS (IVPB) 248 ML IV SCH (15:30)
[2020-12-31] MEDS ORDERED: VANCOMYCIN INJECTION 0.1 MG in NS (IVPB) 250 ML IV SCH (15:30)
[2020-12-31] MEDS: NOREPINEPHRINE 4 MG/250 ML 250 ML IV SCH (15:50)
[2020-12-31] MEDS: VASOPRESSIN INJECTION 20 UNIT in NS (IVPB) 100 ML IV SCH (15:50)
[2020-12-31] MEDS ORDERED: VANCOMYCIN 1 GM/NS 250 ML IVPB IV NR ×2 (16:00)
[2020-12-31 16:26] VITALS: BP 88/60
--- NOTE | 2020-12-31 16:40 | NUR ---
[id number] picc right upper arm unsuccessful x 2. unable to advance guide wire et catheter, much resistance. unsuccessful x 3 to left upper arm. unable to access vein et advance guidewire. nurse notified.
[2020-12-31] MEDS ORDERED: RT-ALBUTEROL SULF 2.5 MG/3 ML PRE-MIX VIAL INH PRN (17:00)
[2020-12-31] MEDS: RT-ALBUTEROL SULF 2.5 MG/3 ML PRE-MIX VIAL INH SCH (18:30)
[2020-12-31] MEDS: NS IV 1000 ML 1,000 ML IV SCH ×2 (19:39→22:54)
[2020-12-31] MEDS: PIPERACILLIN/TAZOBACTAM (BULK) 4.5 GM in NS (IVPB) 100 ML IV SCH (19:55)
--- NOTE | 2020-12-31 23:44 | Consultation - Surgery ---
History of Present Illness History of Present Illness Patient Consulted On(taylor/time) 12/31/20 23:40 Date Seen by Provider: Dec 31, 2020 Time Seen by Provider: 23:40 History of Present Illness Consult requested by Dr Dorman for central line Patient is a 65 year old male that was found to have low blood pressure at [place]. Was found to have altered mental status for him. He has cognitive impairment. Patient has was in ICU and has been hypotensive. Picc line was attempted earlier in the day and was unsuccessful. He is requiring pressors. Found to have pneumonia and UTI. Patient nonverbal. Allergies and Home Medications Allergies Coded Allergies: No Known Drug Allergies (Unverified , 08/08/13) Home Medications Acetaminophen 160 Mg/5 Ml Liquid, 20 ML PEG Q6H PRN for PAIN-MILD (1-4) OR TEMPATURE, (Reported) FLUSH WITH 30ML OF WATER AFTER GIVING A DOSE Famotidine 20 Mg Tablet, 20 MG PEG DAILY, (Reported) Furosemide 40 Mg Tablet, 40 MG PEG DAILY, (Reported) CRUSH TAB AND GIVE PER GTUBE Guaifenesin 100 Mg/5 Ml Liquid, 20 ML PEG TID, (Reported) Ibuprofen 100 Mg/5 Ml Oral.susp, 20 ML PEG Q6H PRN for RESTLESSNESS, (Reported) Magnesium Hydroxide 400 Mg/5 Ml Oral.susp, 30 ML PEG Q12H PRN for CONSTIPATION- 7TH LINE, (Reported) Melatonin 5 Mg Tablet, 5 MG PEG HS, (Reported) Olanzapine 10 Mg Tablet, 10 MG PEG HS, (Reported) Ondansetron 4 Mg Tab.rapdis, 4 MG PO Q8H PRN for NAUSEA/VOMITING-1ST LINE, (Reported) Polyethylene Glycol 3350 17 Gm Powd.pack, 17 GM PEG DAILY, (Reported) Potassium Chloride 40 Meq/15 Ml Liquid, 7.5 ML PEG DAILY, (Reported) Tetrahydrozoline HCl 15 Ml Drops, 2 DROP OU Q6H PRN for REDNESS/IRRITATION, (Reported) Patient Home Medication List Home Medication List Reviewed: Yes Past Asnihzx-Xfkntv-Ooukha Hx Patient Social History Smoking Status: Never a Smoker 2nd Hand Smoke Exposure: No Recent Hopitalizations: No Alcohol Use?: No Have you traveled recently?: No Immunizations Up To Date Tetanus Booster (TDap): Unknown PED Vaccines UTD: No Date of Pneumonia Vaccine: Aug 29, 2009 Date of Influenza Vaccine: Sep 29, 2020 Seasonal Allergies Seasonal Allergies: No Surgeries History of Surgeries: Yes (CYST FROM CHEEK, PEG TUBE) Respiratory History of Respiratory Disorde: No Cardiovascular History of Cardiac Disorders: No Neurological History of Neurological Disord: Yes (MR) Neurological Disorders: Developmental Disorder, Seizure Disorder Reproductive System Hx Reproductive Disorders: No Sexually Transmitted Disease: No HIV/AIDS: No Genitourinary History of Genitourinary Disor: No Gastrointestinal History of Gastrointestinal Di: Yes Gastrointestinal Disorders: Gastroesophageal Reflux, Gastrointestinal Bleed, Chronic Constipation, Esophagitis, Ulcer, Gall Bladder Disease Musculoskeletal History of Musculoskeletal Dis: Yes (foot deforminties) Endocrine History of Endocrine Disorders: No HEENT History of HEENT Disorders: No Loss of Vision: Denies Cancer History of Cancer: No Psychosocial History of Psychiatric Problem: Yes Behavioral Health Disorders: Anxiety Integumentary History of Skin or Integumenta: No Blood Transfusions History of Blood Disorders: No Reviewed Nursing Assessment Reviewed/Agree w Nursing PMH: Yes Family Medical History Significant Family History: No Pertinent Family Hx Family Medial History: Patient reports no known family medical history. Review of Systems-General ROS-Unable to Obtain: nonverbal Physical Exam-General Problems Physical Exam Vital Signs Vital Signs - First Documented 12/31/20 12/31/20 12/31/20 10:32 15:30 16:26 Temp 35.0 Pulse 55 Resp 21 B/P (MAP) 88/60 (69) Pulse Ox 99 O2 Delivery Room Air FiO2 21 Capillary Refill : Less Than 3 Seconds General Appearance: thin, other (nonverbal) HEENT: PERRL/EOMI, normal ENT inspection Neck: supple, normal inspection Respiratory: chest non-tender, no respiratory distress, no accessory muscle use Cardiovascular: regular rate, rhythm, no JVD Gastrointestinal: non tender, soft, no organomegaly, other (gastrostomy tube) Rectal: deferred Back: other Extremities: other (contracted slightly) Neurologic/Psychiatric: sausage canner II-XII nml as tested, alert; No oriented x 3 Skin: normal color, warm/dry, other (areas of skin breakdown) Lymphatic: no adenopathy Data Review Labs Laboratory Tests 12/31/20 10:52: Urine Color YELLOW, Urine Clarity SLIGHTLY CLOUDY, Urine pH 7.5, Urine Specific [place] 1.010L, Urine Protein 1+H, Urine Glucose (UA) NEGATIVE, Urine Ketones NEGATIVE, Urine Nitrite NEGATIVE, Urine Bilirubin NEGATIVE, Urine Urobilinogen 0.2, Urine Leukocyte Esterase 3+H, Urine RBC (Auto) 1+H, Urine RBC 10-25H, Urine WBC >100H, Urine Crystals NONE, Urine Bacteria LARGEH, Urine Casts NONE, Urine Mucus NEGATIVE, Urine Culture Indicated YES 12/31/20 11:42: White Blood Count 5.0, Red Blood Count 2.76L, Hemoglobin 8.5#L, Hematocrit 27L, Mean Corpuscular Volume 98, Mean Corpuscular Hemoglobin 31, Mean Corpuscular Hemoglobin Concent 32, Red Cell Distribution Width 16.9H, Platelet Count 104L, Mean Platelet Volume 11.2, Immature Granulocyte % (Auto) 0, Neutrophils (%) (Auto) 73, Lymphocytes (%) (Auto) 17, Monocytes (%) (Auto) 7, Eosinophils (%) (Auto) 3, Basophils (%) (Auto) 0, Neutrophils # (Auto) 3.7, Lymphocytes # (Auto) 0.9L, Monocytes # (Auto) 0.4, Eosinophils # (Auto) 0.1, Basophils # (Auto) 0.0, Immature Granulocyte # (Auto) 0.0, Prothrombin Time 13.6, INR Comment 1.0, Activated Partial Thromboplast Time 40H, Sodium Level 146H, Potassium Level 4.4, Chloride Level 109H, Carbon Dioxide Level 31, Anion Gap 6, Blood Urea Nitrogen 54H, Creatinine 0.77, Estimat Glomerular Filtration Rate > 60, BUN/Creatinine Ra lelia 70, Glucose Level 74, Calcium Level 9.6, Corrected Calcium 10.6H, Total Bilirubin 0.3, Aspartate Amino Transf (AST/SGOT) 29, Alanine Aminotransferase (ALT/SGPT) 33, Alkaline Phosphatase 105, C-Reactive Protein High Sensitivity 2.69H, Total Protein 7.0, Albumin 2.8L, Procalcitonin 0.10H 12/31/20 11:55: Lactic Acid Level 0.93 Assessment/Plan Assessment/Plan Assessment/Plan Sepsis Pneumonia UTI Hyopotensive requiring pressors (levophed) Consent obtained for central line placement Chest x ray following line placement medical management Procedure: Right internal jugular vein ultrasound-guided central line placement Patient was prepped and draped in a sterile fashion. Timeout was performed. Ultrasound was used to isolate the right internal jugular vein and local anesthetic was infiltrated. A total of 3 mL of 1% lidocaine. Under ultrasound guidance the right internal jugular vein was accessed dark nonpulsatile blood was withdrawn. The wire was inserted through the needle and the needle was removed. 11 blade scalpel was used to make a small skin incision at the insertion point. The dilator was then advanced over the wire and removed. The triple-lumen catheter was inserted over the guidewire and the wire was removed. The catheter was then secured using 3-0 silk suture. All ports were accessed and flushed without difficulty. The area was washed and dried and sterile bandage was applied. Chest x-ray pending KARYN MENDOZA DO Dec 31, 2020 23:43
[2021-01-01] MEDS: VASOPRESSIN INJECTION 20 UNIT in NS (IVPB) 100 ML IV SCH ×4 (00:11→23:30)
[2021-01-01] MEDS ORDERED: NS IV 1000 ML 1,000 ML IV SCH ×2 (00:15→00:30)
[2021-01-01] MEDS: NOREPINEPHRINE 4 MG/250 ML 250 ML IV SCH ×2 (00:26→21:43)
--- NOTE | 2021-01-01 02:22 | NUR ---
2229 - Pts BP dropped to the 70s sys, EICU notified, orders to start pressors and get central access. This RN along with another RN called the pts brother who is the guardian to obtain consent for a central line. Dr. Smith called and updated on pts condition and need for central access. 2329- Dr. Smith at bedside to place central line. Pt tolerated procedure well. Xray was taken at this time to confirm placement. EICU called to look at the xray and verify placement. Per EICU central line in good placement, okay to use.
[2021-01-01 03:23] LABS: MEAN CORPUSCULAR VOLUME 98 fL (80-99)
[2021-01-01 03:25] LABS: BASOPHILS % (AUTO) 0 % (0-10); EOSINOPHILS % (AUTO) 1 % (0-10); HEMATOCRIT 26 % (40-54); LYMPHOCYTES # (AUTO) 0.8 10^3/uL (1.0-4.0); LYMPHOCYTES % (AUTO) 17 % (12-44); MEAN CORPUSCULAR HEMOGLOBIN 30 pg (25-34); MEAN CORPUSCULAR HGB CONC 31 g/dL (32-36); MONOCYTES # (AUTO) 0.4 10^3/uL (0.0-1.0); MONOCYTES % (AUTO) 7 % (0-12); NEUTROPHILS # (AUTO) 3.7 10^3/uL (1.8-7.8); NEUTROPHILS % (AUTO) 75 % (42-75)
[2021-01-01 03:31] LABS: ALBUMIN 2.6 GM/DL (3.2-4.5)
[2021-01-01 03:32] LABS: CHLORIDE 117 MMOL/L (98-107); POTASSIUM 4.9 MMOL/L (3.6-5.0); SODIUM 147 MMOL/L (135-145)
[2021-01-01 03:33] LABS: CALCIUM 8.4 MG/DL (8.5-10.1)
[2021-01-01 03:34] LABS: GLUCOSE 63 MG/DL (70-105); TOTAL PROTEIN 6.1 GM/DL (6.4-8.2)
[2021-01-01 03:35] LABS: CARBON DIOXIDE 24 MMOL/L (21-32)
[2021-01-01 03:36] LABS: BILIRUBIN,TOTAL 0.4 MG/DL (0.1-1.0)
[2021-01-01 03:37] LABS: ALKALINE PHOSPHATASE 90 U/L (40-136); PHOSPHORUS 2.9 MG/DL (2.3-4.7)
[2021-01-01 03:38] LABS: CREATININE SERUM 0.81 MG/DL (0.60-1.30); GFR ESTIMATED > 60
[2021-01-01 03:39] LABS: BUN/CREATININE RATIO 53
[2021-01-01 03:41] LABS: ALANINE AMINOTRANSFERASE 31 U/L (0-55)
[2021-01-01 03:54] LABS: BAND NEUTROPHILS 1 %; EOSINOPHILS % (MANUAL) 1 %; LYMPHOCYTES % (MANUAL) 17 %; MONOCYTES % (MANUAL) 7 %; NEUTROPHILS % (MANUAL) 73 %
[2021-01-01 03:55] LABS: ATYPICAL LYMPHOCYTES 1 %; MICROCYTOSIS SLIGHT; PLATELET COUNT 102 10^3/uL (130-400)
--- NOTE | 2021-01-01 04:52 | Pulmonary Consultation ---
History of Present Illness History of Present Illness Date Seen by Provider: Jan 01, 2021 Time Seen by Provider: 04:45 Date of Admission Allergies and Home Medications Allergies Coded Allergies: No Known Drug Allergies (Unverified , 08/08/13) Home Medications Acetaminophen 325 Mg Tablet, 650 MG PO Q6H PRN for PAIN-MILD (1-4), (Reported) TAKES 2 (325MG) TABLETS Calcium Carbonate 500 Mg Tablet, 1,000 MG PO Q4H PRN for [place], (Reported) Cholecalciferol (Vitamin D3) 50 Mcg Capsule, 50 MCG PO DAILY, (Reported) Diphenhydramine HCl 25 Mg Capsule, 25-50 MG PO Q6H PRN for ALLERGY SYMPTOMS, (Reported) Docusate Sodium 100 Mg Tablet, 100 MG PO BID, (Reported) Famotidine 20 Mg Tablet, 20 MG PEG DAILY Prescribed by: ELYSSA ANTUNEZ on 12/03/20 1208 Furosemide 40 Mg Tablet, 40 MG PO DAILY Prescribed by: ELYSSA ANTUNEZ on 12/03/20 1153 Guaifenesin 100 Mg/5 Ml Liquid, 400 MG PEG TID Prescribed by: ELYSSA ANTUNEZ on 12/03/20 1206 Guaifenesin/Dextromethorphan 5 Ml Syrup, 10 ML PO Q4H PRN for COUGH, (Reported) Ibuprofen 200 Mg Tablet, 400 MG PO Q6H PRN for PAIN-MILD (1-4), (Reported) Loperamide HCl 2 Mg Capsule, 1-2 MG PO UD PRN for DIARRHEA, (Reported) GIVE 2 TABS AFTER FIRST WATERY STOOL, GIVE AN ADDITIONAL 1 TAB AFTER EACH WATERY STOOL. DO NOT EXCEED 4 DOSES PER 24 HOURS Magnesium Hydroxide 400 Mg/5 Ml Oral.susp, 30 ML PO Q12H PRN for CONSTIPATION- 7TH LINE, (Reported) Melatonin 5 Mg Tablet, 5 MG PO HS, (Reported) Menthol 5 Mg Lozenge, 5 MG MM Q1H PRN for COUGH, (Reported) Multivitamin 1 Each Tablet, 1 EACH PO DAILY, (Reported) Olanzapine 10 Mg Tablet, 10 MG PO HS, (Reported) Ondansetron 8 Mg Tab.rapdis, 16 MG PO TIDAC, (Reported) TAKES 2 (8MG) TABS Ondansetron 4 Mg Tab.rapdis, 4 MG PO Q8H PRN for NAUSEA/VOMITING-1ST LINE, (Reported) Ondansetron 4 Mg Tab.rapdis, 4 MG PO Q4H Prescribed by: LUCY ELLSWORTH on 12/25/20 1525 Polyethylene Glycol 3350 17 Gm Powd.pack, 17 GM PO DAILY, (Reported) Potassium Chloride 40 Meq/15 Ml Liquid, 20 MEQ PEG DAILY Prescribed by: ELYSSA ANTUNEZ on 12/03/20 1206 Tetrahydrozoline HCl 15 Ml Drops, 2 DROP OU Q6H PRN for REDNESS/IRRITATION, (Reported) Past Vegzzsw-Fvswbj-Pkwydc Hx Past Med/Social Hx: Reviewed Nursing Past Med/Soc Hx Patient Social History Alcohol Use: Denies Use Smoking Status: Never a Smoker 2nd Hand Smoke Exposure: No Recent Infectious Disease Expo: No Recent Hopitalizations: No Have you traveled recently?: No Alcohol Use?: No Immunizations Up To Date Tetanus Booster (TDap): Unknown PED Vaccines UTD: No Date of Pneumonia Vaccine: Aug 29, 2009 Date of Influenza Vaccine: Sep 29, 2020 Seasonal Allergies Seasonal Allergies: No Past Medical History Surgeries: Yes (CYST FROM CHEEK, PEG TUBE) Respiratory: No Currently Using CPAP: No Currently Using BIPAP: No Cardiac: No Neurological: Yes (MR) Developmental Disorder, Seizure Disorder Reproductive Disorders: No Sexually Transmitted Disease: No HIV/AIDS: No Genitourinary: No Gastrointestinal: Yes Gastroesophageal Reflux, Gastrointestinal Bleed, Chronic Constipation, Esophagitis, Ulcer, Gall Bladder Disease Musculoskeletal: Yes (foot deforminties) Endocrine: No HEENT: No Loss of Vision: Denies Cancer: No Psychosocial: Yes Anxiety Integumentary: No Blood Disorders: No Family Medical History Reviewed Nursing Family Hx Patient reports no known family medical history. No Pertinent Family Hx Review of Systems Time Seen by Provider: 04:52 Sepsis Event Evaluation Height, Weight, BMI Height: 5'6.00" Weight: 139lbs. 0.0oz. 63.166877yi; 17.10 BMI Method:Actual Exam Exam Vital Signs Date Time Temp Pulse Resp B/P (MAP) Pulse Ox O2 Delivery O2 Flow Rate FiO2 01/01/21 03:00 36.5 72 13 95/58 (70) 98 Room Air 01/01/21 02:00 36.3 72 13 112/68 (83) 96 Room Air 01/01/21 01:00 36.3 72 22 103/59 (74) 99 Room Air 01/01/21 01:00 72 01/01/21 00:26 93/51 01/01/21 00:00 36.6 74 11 101/50 (67) 100 Room Air 12/31/20 23:28 95 21 12/31/20 23:00 36.1 69 11 84/51 (62) 94 Room Air 12/31/20 22:00 34.5 66 78/52 (61) 98 Room Air 12/31/20 21:00 32.7 57 9 90/58 (69) 100 Room Air 12/31/20 20:17 100 Room Air 12/31/20 20:15 32.0 51 8 98/61 (73) 100 Room Air 12/31/20 19:56 32.0 52 8 101/62 (75) 100 Room Air 12/31/20 19:00 51 12/31/20 19:00 51 93/58 (70) 100 Room Air 12/31/20 18:00 47 7 94/59 (71) 100 Room Air 12/31/20 17:00 47 11 79/49 (59) 100 Room Air 12/31/20 16:45 47 12/31/20 16:26 35.0 55 99 21 12/31/20 16:00 49 21 96/56 (69) 100 Room Air 12/31/20 15:45 49 17 100/56 (71) 100 Room Air 12/31/20 15:37 100 Room Air 12/31/20 15:30 35.0 12/31/20 14:54 52 16 106/65 100 Room Air 12/31/20 10:32 55 21 88/60 (69) 99 Room Air I & O 01/01/21 06:59 Intake Total 2600 ml Output Total 1100 ml Balance 1500 ml Height & Weight Height: 5'6.00" Weight: 139lbs. 0.0oz. 63.962151wt; 17.10 BMI Method:Actual General Appearance: No Apparent Distress, Chronically ill HEENT: PERRL/EOMI, Other (Mucous membranes dry) Neck: Non Tender; No Lymphadenopathy (L), No Lymphadenopathy (R) Respiratory: Lungs Clear, Normal Breath Sounds Cardiovascular: Regular Rate, Rhythm, No Murmur Capillary Refill: Less Than 3 Seconds Extremity: Normal Capillary Refill, Other (Cachectic appearing limbs. Labs drawn up x4.) Neurologic/Psychiatric: Other (Eyes open and nonverbal. Does not follow commands. Reported as baseline.) Results Lab Laboratory Tests 12/31/20 11:42 01/01/21 03:15 Assessment/Plan Assessment/Plan LLL PNA with sepsis -Zosyn and Vancomycin -IVF Septic shock -Currently on Levophed -Give a liter bolus of LR Hypernatremia -Change NS to LR Hypoglycemia -Start D5LR UTI Hx of MR from Pep PEG tube -Hold TF today. CHRISTIANO DARLING DO Jan 01, 2021 04:52
[2021-01-01] MEDS ORDERED: LACTATED RINGERS 1,000 ML IV SCH ×2 (05:00)
[2021-01-01] MEDS: HYDROCORTISONE 100 MG/2 ML (Solu-CORTEF) VIAL IV SCH ×3 (05:17→21:44)
[2021-01-01] MEDS: PIPERACILLIN/TAZOBACTAM (BULK) 4.5 GM in NS (IVPB) 100 ML IV SCH ×3 (05:17→19:32)
[2021-01-01] MEDS: D5 LR IV SOLUTION 1,000 ML IV SCH ×4 (05:18→20:21)
--- NOTE | 2021-01-01 08:31 | Diagnostic Imaging Report ---
INDICATION: Line placement. TECHNIQUE: Single view chest 12:07 AM. CORRELATION STUDY: 12/31/2020 FINDINGS: Right IJ central line has been placed. Tip projects over the expected location at the cavoatrial junction. Given patient rotation and position, mediastinal structures appear generally stable. Likely perihilar and left basilar atelectasis. No appreciable pneumothorax. IMPRESSION: 1. Placement of the right IJ central line tip at the cavoatrial junction. No post-line placement complication. 2. Minimal perihilar and left basilar atelectasis and/or infiltrate present. Dictated by: Dictated on workstation # [id number]
[2021-01-01] MEDS ORDERED: ACET160L40 PEG (10:01)
[2021-01-01] MEDS ORDERED: GUAI-981 PEG (10:01)
[2021-01-01] MEDS ORDERED: POTA40LI3 PEG (10:01)
[2021-01-01] MEDS ORDERED: IBP100U5 PEG (10:01)
[2021-01-01] MEDS ORDERED: FAMO20TA5 PEG (10:01)
[2021-01-01] MEDS ORDERED: FURO40TA4 PEG (10:01)
--- NOTE | 2021-01-01 10:10 | NUR ---
MED REC WAS ENTERED USING THE MAR FROM [facility]
--- NOTE | 2021-01-01 11:48 | History & Physical-Hospitalist ---
History of Present Illness HPI/Chief Complaint Jd Neves is a 65-year-old male with past medical history of cognitive impairment, chronic aspiration with PEG tube in place, who presented with altered mental status. He is unable to provide any history. He was reportedly found to have a low blood pressure at his residence, [place]. He had not had any fevers. [place] and his brother is unable to make any changes to his medical plan without petitioning the court. His brother does not wish to make any changes at this time though, and wishes for him to remain a full code. Source: RN/MD Exam Limitations: clinical condition Date Seen 01/01/21 Time Seen by a Provider: 09:00 Attending Physician Cris Antunez MD PCP Ben Parker DO Referring Physician Date of Admission Dec 31, 2020 at 14:31 Home Medications & Allergies Home Medications Reviewed patient Home Medication Reconciliation performed by pharmacy medication reconciliations support technician and/or nursing. Patients Allergies have been reviewed. Allergies Allergies Coded Allergies No Known Drug Allergies (Unverified08/08/13) Past Ytzwles-Vjkefg-Cxobjy Hx Past Med/Social Hx: Reviewed Nursing Past Med/Soc Hx Patient Social History Alcohol Use: Denies Use Recreational Drug Use: No Smoking Status: Never a Smoker 2nd Hand Smoke Exposure: No Recent Foreign Travel: No Contact w/other who traveled: No Recent Hopitalizations: No Recent Infectious Disease Expo: No Immunizations Up To Date Tetanus Booster (TDap): Unknown Pediatric: No Date of Pneumonia Vaccine: Aug 29, 2009 Date of Influenza Vaccine: Sep 29, 2020 Seasonal Allergies Seasonal Allergies: No Past Medical History Currently Using CPAP: No Currently Using BIPAP: No Neurological: Developmental Disorder, Seizure Disorder Reproductive: No Sexually Transmitted Disease: No HIV/AIDS: No Gastrointestinal: Gastroesophageal Reflux, Gastrointestinal Bleed, Chronic Constipation, Esophagitis, Ulcer, Gall Bladder Disease Loss of Vision: Denies Psychosocial: Anxiety History of Blood Disorders: No Family History Reviewed Nursing Family Hx Patient reports no known family medical history. No Pertinent Family Hx Review of Systems ROS-Unable to Obtain: cognitive impairment Constitutional: see HPI Physical Exam Physical Exam Vital Signs Vital Signs - First Documented 12/31/20 12/31/20 12/31/20 10:32 15:30 16:26 Temp 35.0 Pulse 55 Resp 21 B/P (MAP) 88/60 (69) Pulse Ox 99 O2 Delivery Room Air FiO2 21 Capillary Refill : Less Than 3 Seconds Height, Weight, BMI Height: 5'6.00" Weight: 139lbs. 0.0oz. 63.119870jj; 17.10 BMI Method:Actual General Appearance: No Apparent Distress, WD/WN HEENT: PERRL/EOMI, Other (dry mucous membranes) Neck: Normal Inspection, Supple Respiratory: Lungs Clear, Normal Breath Sounds, No Respiratory Distress Cardiovascular: Regular Rate, Rhythm, No Edema, No Murmur Gastrointestinal: Normal Bowel Sounds, Non Tender, Soft Extremity: Normal Inspection, No Pedal Edema Neurologic/Psychiatric: Alert, Disoriented, Motor Weakness Skin: Warm/Dry, Pallor Results Results/Procedures Labs Laboratory Tests 12/31/20 11:42 01/01/21 03:15 Patient resulted labs reviewed. Imaging: Reviewed Imaging Report Assessment/Plan Admission Diagnosis Septic shock Admission Status: Inpatient Order (span 2 midnights) Reason for Inpatient Admission: Septic shock requiring pressors and antibiotics Assessment and Plan Septic shock UTI Aspiration pneumonia Hypotensive requiring Levophed UA consistent with UTI Urine culture with E coli, final ID and sensitivities pending CT chest with patchy bilateral infiltrates Started on Vancomycin and Zosyn Blood cultures pending Pulmonology and TeleICU consulted Pancytopenia Chronic, monitor Hypernatremia PEG in place Chronic aspiration Cognitive impairment PEG tube feeding held IV fluids DVT prophylaxis: Lovenox Diagnosis/Problems Diagnosis/Problems (1) Septic shock Status: Acute (2) UTI (urinary tract infection) Status: Acute (3) PNA (pneumonia) Status: Acute Qualifiers: Pneumonia type: aspiration pneumonia Aspiration pneumonia type: unspecified Laterality: bilateral Lung location: unspecified part of lung Qualified Codes: J69.0 - Pneumonitis due to inhalation of food and vomit (4) Hypernatremia (5) Cognitive impairment Status: Chronic (6) PEG (percutaneous endoscopic gastrostomy) status Status: Chronic (7) Pancytopenia Status: Chronic CRIS ANTUNEZ MD Jan 01, 2021 11:48
--- NOTE | 2021-01-01 13:42 | NUR ---
Note pt has PEG tube placed in previous admission. Would recommend initiation of TF when medically able and as tolerated. Would recommend Jevity 1.5 via 60ml bolus feeds q4h, with 30ml free water flushes before/after each bolus. Recommend increase TF by 30ml q8h as tolerated toward goal of 175ml bolus feeds q4h. Will continue to follow and reassess as pt needs, intake, and status change. Malorie Brooks, RD LD [phone] cell
[2021-01-01] MEDS: RT-ALBUTEROL SULF 2.5 MG/3 ML PRE-MIX VIAL INH SCH ×2 (13:47→18:33)
[2021-01-01] MEDS ORDERED: ATROPINE INJECTION 1 MG/10 ML SYR (ABBOTT) ONE (14:41)
--- NOTE | 2021-01-01 14:41 | NUR ---
THIS RN SPOKE WITH DR ANTUNEZ REGARDING PT BRADYCARDIA. THIS RN INFORMED DR THAT PT HEART RATE HAS BEEN LOW 40'S AND HAS DROPPED TO 38 TWICE IN THE LAST FEW MIN, ORDER RECEIVED FOR ATROPINE PRN FOR HEART RATE THAT DROPS LESS THAN 30.
[2021-01-01] MEDS ORDERED: ATROPINE INJECTION 1 MG/10 ML SYR (ABBOTT) IV PRN (15:00)
[2021-01-01] MEDS: DOPamine DRIP 250 ML IV SCH (15:44)
[2021-01-01] MEDS ORDERED: VANCOMYCIN 750 MG/NS 250 ML IVPB IV SCH ×2 (16:00)
[2021-01-02 02:18] LABS: EOSINOPHILS % (AUTO) 0 % (0-10); HEMOGLOBIN 8.4 g/dL (13.3-17.7); MEAN PLATELET VOLUME 10.8 fL (9.0-12.2)
[2021-01-02 02:20] LABS: BASOPHILS % (AUTO) 0 % (0-10); HEMATOCRIT 27 % (40-54); LYMPHOCYTES # (AUTO) 0.6 10^3/uL (1.0-4.0); LYMPHOCYTES % (AUTO) 10 % (12-44); MEAN CORPUSCULAR HEMOGLOBIN 30 pg (25-34); MEAN CORPUSCULAR HGB CONC 32 g/dL (32-36); MEAN CORPUSCULAR VOLUME 96 fL (80-99); MONOCYTES # (AUTO) 0.1 10^3/uL (0.0-1.0); MONOCYTES % (AUTO) 2 % (0-12); NEUTROPHILS # (AUTO) 5.4 10^3/uL (1.8-7.8); NEUTROPHILS % (AUTO) 86 % (42-75); PLATELET COUNT 98 10^3/uL (130-400); WHITE BLOOD COUNT 6.2 10^3/uL (4.3-11.0)
[2021-01-02 02:29] LABS: CHLORIDE 115 MMOL/L (98-107); POTASSIUM 3.6 MMOL/L (3.6-5.0); SODIUM 147 MMOL/L (135-145)
[2021-01-02 02:30] LABS: CALCIUM 8.6 MG/DL (8.5-10.1)
[2021-01-02 02:31] LABS: GLUCOSE 199 MG/DL (70-105)
[2021-01-02 02:33] LABS: CARBON DIOXIDE 23 MMOL/L (21-32)
[2021-01-02 02:35] LABS: CREATININE SERUM 0.82 MG/DL (0.60-1.30); GFR ESTIMATED > 60; PHOSPHORUS 1.7 MG/DL (2.3-4.7)
[2021-01-02 02:36] LABS: BUN/CREATININE RATIO 29
[2021-01-02 02:37] LABS: MAGNESIUM 1.7 MG/DL (1.6-2.4)
[2021-01-02] MEDS: PIPERACILLIN/TAZOBACTAM (BULK) 4.5 GM in NS (IVPB) 100 ML IV SCH (03:36)
--- NOTE | 2021-01-02 05:22 | Pulmonary Progress Note ---
Subjective Time Seen by a Provider: 05:18 Subjective/Events-last exam Pt is on Dopamine gtt secondary to bradycardia and Hypotension. Sepsis Event Evaluation Height, Weight, BMI Height: 5'6.00" Weight: 139lbs. 0.0oz. 63.038281ex; 17.10 BMI Method:Actual Focused Exam Lactate Level 12/31/20 11:55: Lactic Acid Level 0.93 Exam Exam Vital Signs Date Time Temp Pulse Resp B/P (MAP) Pulse Ox O2 Delivery O2 Flow Rate FiO2 01/02/21 04:00 36.5 46 14 162/73 (102) 100 Room Air 01/02/21 03:00 36.5 45 14 157/73 (101) 100 Room Air 01/02/21 02:00 36.6 43 15 139/65 (89) 100 Room Air 01/02/21 01:00 36.6 45 13 162/74 (103) 100 Room Air 01/02/21 01:00 50 01/02/21 00:00 36.6 48 15 155/76 (102) 100 Room Air 01/01/21 23:00 36.7 53 13 150/77 (101) 99 Room Air 01/01/21 22:00 36.9 61 12 101/70 (80) 100 Room Air 01/01/21 21:43 116/60 01/01/21 21:00 37.1 40 15 110/62 (78) 100 Room Air 01/01/21 20:00 37.1 41 15 106/64 (78) 100 Room Air 01/01/21 20:00 99 Room Air 01/01/21 19:14 37.0 44 19 139/69 (92) 99 Room Air 01/01/21 19:00 50 01/01/21 18:33 99 21 01/01/21 18:00 36.8 42 11 112/64 (80) 100 Room Air 01/01/21 17:00 36.7 42 14 117/65 (82) 99 Room Air 01/01/21 16:00 36.5 37 116/57 (76) 99 Room Air 01/01/21 15:44 43 92/54 01/01/21 15:01 36.4 01/01/21 15:00 36.4 37 12 95/55 (68) 99 Room Air 01/01/21 14:00 36.4 43 11 97/58 (71) 100 Room Air 01/01/21 13:00 36.4 44 11 93/60 (71) 100 Room Air 01/01/21 12:46 48 01/01/21 12:00 36.4 50 46 93/55 (68) 100 Room Air 01/01/21 11:37 36.3 01/01/21 11:00 36.5 55 42 92/58 (69) 97 Room Air 01/01/21 10:00 36.4 55 24 101/65 (77) 100 Room Air 01/01/21 09:00 36.5 60 16 98/62 (74) 100 Room Air 01/01/21 08:00 100 Room Air 01/01/21 08:00 36.8 01/01/21 08:00 36.7 60 14 101/64 (76) 100 Room Air 01/01/21 07:00 37.0 66 12 102/62 (75) 100 Room Air 01/01/21 06:54 58 01/01/21 06:00 37.3 75 14 99/58 (72) 98 Room Air I & O 01/02/21 07:00 Intake Total 0 ml Output Total 1800 ml Balance -1800 ml Height & Weight Height: 5'6.00" Weight: 139lbs. 0.0oz. 63.070967ng; 17.10 BMI Method:Actual General Appearance: No Apparent Distress, WD/WN HEENT: PERRL/EOMI, Other (dry mucous membranes) Neck: Normal Inspection, Supple Respiratory: Lungs Clear, Normal Breath Sounds, No Respiratory Distress Cardiovascular: Regular Rate, Rhythm, No Edema, No Murmur Capillary Refill: Less Than 3 Seconds Gastrointestinal: non tender, soft, no organomegaly, other (gastrostomy tube) Extremity: Normal Inspection, No Pedal Edema Neurologic/Psychiatric: Alert, Disoriented, Motor Weakness Skin: Warm/Dry, Pallor Results Lab Laboratory Tests 12/31/20 11:42 01/01/21 03:15 01/02/21 02:10 Assessment/Plan Assessment/Plan LLL PNA with sepsis -Zosyn and Vancomycin -IVF -Start TF per dietary recommendations Septic shock -Now off Levophed and on Dopamine Bradycardia -Currently on Dopamine gtt Hypernatremia -Change NS to LR Hypoglycemia - D5LR UTI Hx of MR from [place] PEG tube -Hold TF today. CHRISTIANO DARLING DO Jan 02, 2021 05:22
[2021-01-02] MEDS ORDERED: POTASSIUM PHOSPHATE INJ 30 MM in NS (IVPB) 250 ML IV ONE (05:30)
[2021-01-02] MEDS: HYDROCORTISONE 100 MG/2 ML (Solu-CORTEF) VIAL IV SCH ×3 (05:47→22:19)
[2021-01-02] MEDS: MAGNESIUM 1 GM/100 ML IVPB 100 ML IV SCH ×2 (05:47→07:00)
[2021-01-02] MEDS: D5 LR IV SOLUTION 1,000 ML IV SCH ×3 (05:47→20:23)
--- NOTE | 2021-01-02 07:46 | Diagnostic Imaging Report ---
EXAM: CHEST 1 VIEW, AP/PA ONLY INDICATION: Pneumonia. COMPARISON: Chest radiograph 01/01/2021. FINDINGS: Normal heart size and central pulmonary vascularity. Patchy interstitial airspace and opacities in both lungs have slightly progressed. No large pleural effusion or pneumothorax. Right IJ CVC tip mid SVC. IMPRESSION: Mild interstitial airspace opacities bilaterally have mildly progressed since yesterday. Dictated by: Dictated on workstation # [id number]
[2021-01-02] MEDS: DOPamine DRIP 250 ML IV SCH ×2 (08:28→22:19)
[2021-01-02] MEDS: RT-ALBUTEROL SULF 2.5 MG/3 ML PRE-MIX VIAL INH SCH ×2 (08:44→18:13)
[2021-01-02] MEDS: VASOPRESSIN INJECTION 20 UNIT in NS (IVPB) 100 ML IV SCH ×2 (09:10→17:32)
--- NOTE | 2021-01-02 10:10 | NUR ---
[facility] Laboratory Assistant responded to palliative care consult and attempted to engage pt. He had his eyes open but did not respond verbally. [employer] Laboratory Assistant offered blessing.
--- NOTE | 2021-01-02 10:32 | Progress Note - Hospitalist ---
Subjective HPI/CC On Admission Date Seen by Provider: Jan 02, 2021 Time Seen by Provider: 08:40 Jd Neves is a 65-year-old male with past medical history of cognitive impairment, chronic aspiration with PEG tube in place, who presented with altered mental status. He is unable to provide any history. He was reportedly found to have a low blood pressure at his residence, [place]. He had not had any fevers. [place] and his brother is unable to make any changes to his medical plan without petitioning the court. His brother does not wish to make any changes at this time though, and wishes for him to remain a full code. Subjective/Events-last exam He is awake but non-communicative. Focused Exam Lactate Level 12/31/20 11:55: Lactic Acid Level 0.93 Objective Exam Vital Signs Vital Signs Date Time Temp Pulse Resp B/P (MAP) Pulse Ox O2 Delivery O2 Flow Rate FiO2 01/02/21 08:45 98 Room Air 01/02/21 08:28 44 153/77 01/02/21 07:00 36.3 12 01/01/21 18:33 21 Capillary Refill : Less Than 3 Seconds General Appearance: No Apparent Distress, Chronically ill, Thin Respiratory: No Respiratory Distress, Decreased Breath Sounds Cardiovascular: Regular Rate, Rhythm, No Edema, No Murmur Gastrointestinal: Normal Bowel Sounds, Soft Extremity: Normal Inspection, No Pedal Edema Neurologic/Psychiatric: Alert, Aphasia Skin: Normal Color, Warm/Dry Results/Procedures Lab Laboratory Tests 01/02/21 02:10 Patient resulted labs reviewed. Imaging: Reviewed Imaging Report Assessment/Plan Assessment and Plan Assess & Plan/Chief Complaint Septic shock UTI Aspiration pneumonia Transitioned to Dopamine UA consistent with UTI Urine culture with E coli, final ID and sensitivities pending CT chest with patchy bilateral infiltrates Blood cultures with no growth to date Transition to Unasyn Pulmonology and TeleICU consulted Pancytopenia Chronic, monitor Hypernatremia PEG in place Chronic aspiration Cognitive impairment Resume tube feeds IV fluids DVT prophylaxis: Lovenox Diagnosis/Problems Diagnosis/Problems (1) Septic shock Status: Acute (2) UTI (urinary tract infection) Status: Acute (3) PNA (pneumonia) Status: Acute Qualifiers: Pneumonia type: aspiration pneumonia Aspiration pneumonia type: unspecified Laterality: bilateral Lung location: unspecified part of lung Qualified Codes: J69.0 - Pneumonitis due to inhalation of food and vomit (4) Hypernatremia (5) Cognitive impairment Status: Chronic (6) PEG (percutaneous endoscopic gastrostomy) status Status: Chronic (7) Pancytopenia Status: Chronic ELYSSA ANTUNEZ MD Jan 02, 2021 10:32
[2021-01-02] MEDS: ENOXAPARIN 40 MG/0.4 ML (LOVENOX) SYR SC SCH (11:22)
[2021-01-02] MEDS: AMPICILLIN/SULBACTAM INJECTION 3 GM in NS (IVPB) 100 ML IV SCH ×2 (11:22→17:31)
--- NOTE | 2021-01-02 14:32 | NUR ---
Note pt is currently NPO. Note pt currently receiving TF of Jevity 1.5 via 60ml bolus feeds q4h, with 30ml free water flushes before/after each bolus feed. Continue to increase TF by 30ml q8h as medically able and as tolerated, toward goal of 175ml bolus feeds q4h. Will continue to follow and reassess as pt needs, intake, and status change. Malorie Brooks, MS RD LD [phone] cell
[2021-01-02] MEDS: NOREPINEPHRINE 4 MG/250 ML 250 ML IV SCH (16:24)
--- NOTE | 2021-01-02 16:57 | NUR ---
Follow up visit to pt. Pt made eye contact and attempted to hold this kaiawhina kohanga reo's hand. Cutter Machine Tender spoke with reassuring tone and offered prayer.
[2021-01-03] MEDS: AMPICILLIN/SULBACTAM INJECTION 3 GM in NS (IVPB) 100 ML IV SCH ×5 (00:03→22:11)
[2021-01-03] MEDS: VASOPRESSIN INJECTION 20 UNIT in NS (IVPB) 100 ML IV SCH ×3 (00:46→17:51)
[2021-01-03 03:19] LABS: BASOPHILS % (AUTO) 0 % (0-10); EOSINOPHILS % (AUTO) 0 % (0-10)
[2021-01-03 03:21] LABS: HEMATOCRIT 23 % (40-54); HEMOGLOBIN 7.6 g/dL (13.3-17.7); LYMPHOCYTES # (AUTO) 0.7 10^3/uL (1.0-4.0); LYMPHOCYTES % (AUTO) 10 % (12-44); MEAN CORPUSCULAR HEMOGLOBIN 31 pg (25-34); MEAN CORPUSCULAR HGB CONC 33 g/dL (32-36); MEAN CORPUSCULAR VOLUME 93 fL (80-99); MEAN PLATELET VOLUME 10.7 fL (9.0-12.2); MONOCYTES # (AUTO) 0.4 10^3/uL (0.0-1.0); MONOCYTES % (AUTO) 7 % (0-12); NEUTROPHILS # (AUTO) 5.4 10^3/uL (1.8-7.8); NEUTROPHILS % (AUTO) 83 % (42-75); PLATELET COUNT 86 10^3/uL (130-400); WHITE BLOOD COUNT 6.5 10^3/uL (4.3-11.0)
[2021-01-03 03:30] LABS: CHLORIDE 107 MMOL/L (98-107); POTASSIUM 2.9 MMOL/L (3.6-5.0); SODIUM 144 MMOL/L (135-145)
[2021-01-03 03:32] LABS: CALCIUM 8.1 MG/DL (8.5-10.1); GLUCOSE 141 MG/DL (70-105)
[2021-01-03 03:34] LABS: CARBON DIOXIDE 28 MMOL/L (21-32)
[2021-01-03 03:36] LABS: CREATININE SERUM 0.68 MG/DL (0.60-1.30); GFR ESTIMATED > 60
[2021-01-03 03:37] LABS: BUN/CREATININE RATIO 29
[2021-01-03 03:38] LABS: MAGNESIUM 1.7 MG/DL (1.6-2.4)
[2021-01-03] MEDS: D5 LR IV SOLUTION 1,000 ML IV SCH ×3 (03:46→17:51)
--- NOTE | 2021-01-03 04:31 | Pulmonary Progress Note ---
Subjective Time Seen by a Provider: 04:29 Subjective/Events-last exam Pt is still requiring Dopamine. Sepsis Event Evaluation Height, Weight, BMI Height: 5'6.00" Weight: 139lbs. 0.0oz. 63.759412xt; 17.10 BMI Method:Actual Focused Exam Lactate Level 12/31/20 11:55: Lactic Acid Level 0.93 Exam Exam Vital Signs Date Time Temp Pulse Resp B/P (MAP) Pulse Ox O2 Delivery O2 Flow Rate FiO2 01/03/21 04:00 68 11 102/61 (75) 100 Room Air 01/03/21 03:45 36.5 01/03/21 03:00 69 18 103/67 (79) 100 Room Air 01/03/21 02:31 71 104/63 01/03/21 02:00 61 14 113/70 (84) 95 Room Air 01/03/21 01:00 65 01/03/21 01:00 64 13 116/72 (87) 100 Room Air 01/03/21 00:00 58 17 116/69 (85) 99 Room Air 01/02/21 23:00 36.1 55 12 114/67 (83) 98 Room Air 01/02/21 22:19 106/71 01/02/21 22:00 36.1 51 13 106/71 (83) 100 Room Air 01/02/21 21:00 36.2 52 15 139/78 (98) 99 Room Air 01/02/21 20:00 36.3 66 13 114/67 (83) 100 Room Air 01/02/21 20:00 100 Room Air 01/02/21 19:00 51 01/02/21 19:00 36.3 51 10 149/85 (106) 100 Room Air 01/02/21 18:13 100 Room Air 01/02/21 18:00 36.5 50 14 152/81 (104) 100 Room Air 01/02/21 17:00 36.6 52 12 153/82 (105) 100 Room Air 01/02/21 16:00 36.5 50 14 150/86 (107) 100 Room Air 01/02/21 15:00 36.5 51 14 156/83 (107) 100 Room Air 01/02/21 14:00 36.5 48 14 156/82 (106) 100 Room Air 01/02/21 13:00 36.4 48 14 138/74 (95) 100 Room Air 01/02/21 13:00 50 01/02/21 12:00 36.4 48 16 150/79 (102) 100 Room Air 01/02/21 11:00 36.3 42 14 152/79 (103) 100 Room Air 01/02/21 10:00 36.3 44 18 149/76 (100) 100 Room Air 01/02/21 09:00 36.3 41 16 139/81 (100) 100 Room Air 01/02/21 08:45 98 Room Air 01/02/21 08:44 100 Room Air 01/02/21 08:28 44 153/77 01/02/21 08:00 36.3 42 14 147/82 (103) 100 Room Air 01/02/21 07:00 36.3 43 12 155/81 (105) 100 Room Air 01/02/21 07:00 42 01/02/21 06:00 36.3 42 11 154/76 (102) 100 Room Air 01/02/21 05:00 36.3 42 13 164/78 (106) 100 Room Air I & O 01/03/21 07:00 Intake Total 1230 ml Output Total 3150 ml Balance -1920 ml Height & Weight Height: 5'6.00" Weight: 139lbs. 0.0oz. 63.660698hd; 17.10 BMI Method:Actual General Appearance: No Apparent Distress, Chronically ill, Thin HEENT: PERRL/EOMI, Other (dry mucous membranes) Neck: Normal Inspection, Supple Respiratory: No Respiratory Distress, Decreased Breath Sounds Cardiovascular: Regular Rate, Rhythm, No Edema, No Murmur Capillary Refill: Less Than 3 Seconds Gastrointestinal: non tender, soft, no organomegaly, other (gastrostomy tube) Extremity: Normal Inspection, No Pedal Edema Neurologic/Psychiatric: Alert, Aphasia Skin: Normal Color, Warm/Dry Results Lab Laboratory Tests 01/02/21 02:10 01/03/21 03:10 Assessment/Plan Assessment/Plan LLL PNA with sepsis -Zosyn and Vancomycin -IVF -Start TF per dietary recommendations Septic shock -Now off Levophed and on Dopamine Bradycardia -Currently on Dopamine gtt Hypernatremia - improving - LR Hypoglycemia - D5LR UTI Hx of MR from [facility] PEG tube -Hold TF today. CHRISTIANO DARLING DO Jan 03, 2021 04:31
[2021-01-03] MEDS: MAGNESIUM 1 GM/100 ML IVPB 100 ML IV SCH ×2 (05:13→06:12)
[2021-01-03] MEDS: POTASSIUM CL 10MEQ/50ML IVPB 50 ML IV SCH ×3 (05:13→06:13)
[2021-01-03] MEDS: HYDROCORTISONE 100 MG/2 ML (Solu-CORTEF) VIAL IV SCH ×3 (05:14→22:11)
--- NOTE | 2021-01-03 07:25 | Diagnostic Imaging Report ---
INDICATION: Line placement. TECHNIQUE: Single view chest 12:52 AM. CORRELATION STUDY: 01/02/2021 FINDINGS: Right IJ central line tip at cavoatrial junction. Heart size and mediastinum are generally stable given difference in technique. Bilateral pulmonary opacities particularly in the central and basilar distribution left greater than right persist but overall are at least partially cleared and improved. IMPRESSION: 1. Bilateral pulmonary opacities particularly in the perihilar and basilar regions left greater than right persisting but overall slightly improved from previous. Dictated by: Dictated on workstation # [id number]
[2021-01-03] MEDS: RT-ALBUTEROL SULF 2.5 MG/3 ML PRE-MIX VIAL INH SCH ×2 (07:58→18:46)
[2021-01-03] MEDS ORDERED: POTASSIUM PHOSPHATE INJ 30 MM in NS (IVPB) 250 ML IV ONE (08:00)
[2021-01-03] MEDS: NOREPINEPHRINE 4 MG/250 ML 250 ML IV SCH (08:45)
--- NOTE | 2021-01-03 09:43 | Progress Note - Hospitalist ---
Subjective HPI/CC On Admission Date Seen by Provider: Jan 03, 2021 Time Seen by Provider: 08:40 Jd Neves is a 65-year-old male with past medical history of cognitive impairment, chronic aspiration with PEG tube in place, who presented with altered mental status. He is unable to provide any history. He was reportedly found to have a low blood pressure at his residence, [place]. He had not had any fevers. [place] and his brother is unable to make any changes to his medical plan without petitioning the court. His brother does not wish to make any changes at this time though, and wishes for him to remain a full code. Subjective/Events-last exam He is non-communicative. Focused Exam Lactate Level 12/31/20 11:55: Lactic Acid Level 0.93 Objective Exam Vital Signs Vital Signs Date Time Temp Pulse Resp B/P (MAP) Pulse Ox O2 Delivery O2 Flow Rate FiO2 01/03/21 09:00 71 13 98/59 (72) 95 Room Air 01/03/21 07:00 36.8 01/01/21 18:33 21 Capillary Refill : Less Than 3 Seconds General Appearance: No Apparent Distress, Chronically ill, Thin Respiratory: Lungs Clear, Normal Breath Sounds, No Respiratory Distress Cardiovascular: Regular Rate, Rhythm, No Edema, No Murmur Gastrointestinal: Normal Bowel Sounds, Non Tender, Soft Extremity: Normal Inspection, Non Tender, No Pedal Edema Neurologic/Psychiatric: Other (sleeping, awakens easily, non-communicative) Skin: Normal Color, Warm/Dry Results/Procedures Lab Laboratory Tests 01/03/21 03:10 Patient resulted labs reviewed. Imaging: Reviewed Imaging Report Assessment/Plan Assessment and Plan Assess & Plan/Chief Complaint Septic shock UTI Aspiration pneumonia Bradycardia Continue Dopamine UA consistent with UTI Urine culture with E coli, final ID and sensitivities pending CT chest with patchy bilateral infiltrates Blood cultures with no growth to date Continue Unasyn Pulmonology and TeleICU consulted Pancytopenia Chronic, monitor Hypernatremia PEG in place Chronic aspiration Cognitive impairment Resume tube feeds IV fluids DVT prophylaxis: Lovenox Diagnosis/Problems Diagnosis/Problems (1) Septic shock Status: Acute (2) UTI (urinary tract infection) Status: Acute (3) PNA (pneumonia) Status: Acute Qualifiers: Pneumonia type: aspiration pneumonia Aspiration pneumonia type: unspecified Laterality: bilateral Lung location: unspecified part of lung Qualified Codes: J69.0 - Pneumonitis due to inhalation of food and vomit (4) Hypernatremia (5) Cognitive impairment Status: Chronic (6) PEG (percutaneous endoscopic gastrostomy) status Status: Chronic (7) Pancytopenia Status: Chronic (8) Bradycardia Status: Acute ELYSSA ANTUNEZ MD Jan 03, 2021 09:43
[2021-01-03] MEDS: ENOXAPARIN 40 MG/0.4 ML (LOVENOX) SYR SC SCH (12:05)
--- NOTE | 2021-01-03 13:56 | NUR ---
Call placed to E-ICU to notify of low urine output, message left at this time.
--- NOTE | 2021-01-03 14:18 | NUR ---
Received call from E-ICU about low urine output, pt chart reviewed with E-ICU Dr. Salinas EMAR for new orders.
--- NOTE | 2021-01-03 14:29 | NUR ---
Note pt currently receiving TF of Jevity 1.5 via 120ml bolus feeds q4h, with 30ml free water flushes before/after each bolus feed. Continue to increase TF by 30ml q8h as medically able and as tolerated, toward goal of 175ml bolus feeds q4h. Will continue to follow and reassess as pt needs, intake, and status change. Malorie Brooks, MS RD LD [phone] cell
[2021-01-03] MEDS ORDERED: ALBUMIN 25% 25 GM/100 ML 50 ML IV PRN (14:30)
[2021-01-04] VITALS (7 sets, daily range): BP systolic 94–133; BP diastolic 57–74
[2021-01-04] MEDS: VASOPRESSIN INJECTION 20 UNIT in NS (IVPB) 100 ML IV SCH (01:12)
[2021-01-04] MEDS: D5 LR IV SOLUTION 1,000 ML IV SCH ×2 (01:12→05:33)
[2021-01-04] MEDS: NOREPINEPHRINE 4 MG/250 ML 250 ML IV SCH (01:12)
[2021-01-04 05:12] LABS: BASOPHILS % (AUTO) 0 % (0-10); EOSINOPHILS % (AUTO) 0 % (0-10)
[2021-01-04 05:14] LABS: LYMPHOCYTES # (AUTO) 0.6 10^3/uL (1.0-4.0); LYMPHOCYTES % (AUTO) 15 % (12-44); MEAN CORPUSCULAR HEMOGLOBIN 30 pg (25-34); MEAN CORPUSCULAR HGB CONC 31 g/dL (32-36); MEAN CORPUSCULAR VOLUME 96 fL (80-99); MONOCYTES # (AUTO) 0.3 10^3/uL (0.0-1.0); MONOCYTES % (AUTO) 8 % (0-12); NEUTROPHILS # (AUTO) 3.3 10^3/uL (1.8-7.8); NEUTROPHILS % (AUTO) 77 % (42-75); PLATELET COUNT 73 10^3/uL (130-400); WHITE BLOOD COUNT 4.3 10^3/uL (4.3-11.0)
[2021-01-04 05:22] LABS: CHLORIDE 114 MMOL/L (98-107); POTASSIUM 3.2 MMOL/L (3.6-5.0); SODIUM 146 MMOL/L (135-145)
[2021-01-04 05:23] LABS: CALCIUM 7.3 MG/DL (8.5-10.1)
[2021-01-04 05:24] LABS: GLUCOSE 127 MG/DL (70-105)
[2021-01-04 05:25] LABS: CARBON DIOXIDE 26 MMOL/L (21-32)
[2021-01-04 05:27] LABS: PHOSPHORUS 1.7 MG/DL (2.3-4.7)
[2021-01-04 05:28] LABS: CREATININE SERUM 0.67 MG/DL (0.60-1.30); GFR ESTIMATED > 60
[2021-01-04 05:29] LABS: BUN/CREATININE RATIO 49
[2021-01-04 05:30] LABS: MAGNESIUM 1.8 MG/DL (1.6-2.4)
[2021-01-04] MEDS ORDERED: POTASSIUM CL 10MEQ/50ML IVPB 200 ML IV ONE (05:44)
[2021-01-04 05:49] LABS: HEMATOCRIT 18 % (40-54); HEMOGLOBIN 5.5 g/dL (13.3-17.7)
[2021-01-04] MEDS: HYDROCORTISONE 100 MG/2 ML (Solu-CORTEF) VIAL IV SCH ×3 (05:51→21:10)
[2021-01-04] MEDS: AMPICILLIN/SULBACTAM INJECTION 3 GM in NS (IVPB) 100 ML IV SCH ×2 (05:52→11:28)
[2021-01-04] MEDS: POTASSIUM CL 10MEQ/50ML IVPB 50 ML IV SCH ×4 (05:54→07:34)
[2021-01-04] MEDS ORDERED: NS IV 500 ML 500 ML IV SCH ×2 (06:15→08:15)
[2021-01-04] MEDS ORDERED: SODIUM PHOSPHATE INJ 15 MM in D5W 100 ML IVPB 100 ML IV ONE (08:15)
--- NOTE | 2021-01-04 09:42 | Diagnostic Imaging Report ---
INDICATION: Left lower lobe pneumonia, check central line placement COMPARISON STUDY: Chest from yesterday. FINDINGS: Frontal view of the chest demonstrates a right jugular catheter remaining in place with its tip at the atrial caval junction. Heart size and vascularity are normal. Mild bilateral pulmonary infiltrates are present with some increase in the left base. IMPRESSION: There are mild bilateral pulmonary infiltrates with some increase of the infiltrates in the left lung base. Dictated by: Dictated on workstation # [id number]
--- NOTE | 2021-01-04 11:42 | Progress Note - Hospitalist ---
Subjective HPI/CC On Admission Date Seen by Provider: Jan 04, 2021 Time Seen by Provider: 09:00 Jd Neves is a 65-year-old male with past medical history of cognitive impairment, chronic aspiration with PEG tube in place, who presented with altered mental status. He is unable to provide any history. He was reportedly found to have a low blood pressure at his residence, [place]. He had not had any fevers. [place] and his brother is unable to make any changes to his medical plan without petitioning the court. His brother does not wish to make any changes at this time though, and wishes for him to remain a full code. Subjective/Events-last exam He is non-communicative but does awaken upon my arrival. Objective Exam Vital Signs Vital Signs Date Time Temp Pulse Resp B/P (MAP) Pulse Ox O2 Delivery O2 Flow Rate FiO2 01/04/21 11:31 75 18 105/64 97 Room Air 01/04/21 11:24 37.0 01/01/21 18:33 21 Capillary Refill : Less Than 3 Seconds General Appearance: No Apparent Distress, Chronically ill Respiratory: Lungs Clear, Normal Breath Sounds, No Respiratory Distress Cardiovascular: Regular Rate, Rhythm, No Edema, No Murmur Gastrointestinal: Normal Bowel Sounds, Non Tender, Soft Extremity: Normal Inspection, Non Tender, No Pedal Edema Neurologic/Psychiatric: Alert, Oriented x3, No Motor/Sensory Deficits, Normal Mood/Affect Skin: Normal Color, Warm/Dry Results/Procedures Lab Laboratory Tests 01/04/21 05:00 Patient resulted labs reviewed. Imaging: Reviewed Imaging Report Assessment/Plan Assessment and Plan Assess & Plan/Chief Complaint Pancytopenia Anemia Hgb 5.5 Transfuse 2 units PRBC Add on iron, B12, folate UTI Off Dopamine UA consistent with UTI Urine culture with E coli, multi-drug resistant Blood cultures with no growth to date Transition to Bactrim Hypokalemia Hypophosphatemia Monitor and replace as needed Hypernatremia PEG in place Chronic aspiration Cognitive impairment Continue tube feeds Stop IV fluids Increase free water boluses DVT prophylaxis: Lovenox Septic shock, resolved Bradycardia, resolved Diagnosis/Problems Diagnosis/Problems (1) Anemia Status: Acute (2) Septic shock Status: Resolved Resolution Date/Time: 01/04/21 @ 11:48 (3) UTI (urinary tract infection) Status: Acute (4) Chronic pulmonary aspiration Status: Chronic (5) Hypernatremia Status: Acute (6) Cognitive impairment Status: Chronic (7) PEG (percutaneous endoscopic gastrostomy) status Status: Chronic (8) Pancytopenia Status: Chronic (9) Bradycardia Status: Resolved Resolution Date/Time: 01/04/21 @ 11:48 ELYSSA ANTUNEZ MD Jan 04, 2021 11:42
--- NOTE | 2021-01-04 15:15 | NUR ---
REPORT RECEIVED FROM TUTU SOTO, RECEIVED FROM ICU TO ROOM 411, CLARKE PATENT WITH CLEAR YELLOW URINE, PEG TUBE INTACT , IV SITE RIGHT IJ WITHOUT REDNESS. BED ALARM ON. ICU INSTRUCTED TO DO JEVITY 1.5 TUBE FEEDING 175ML EVERY 4 HOUR WITH 100ML WATER AFTER JEVITY.
--- NOTE | 2021-01-04 15:31 | NUR ---
1505 PT TRANSFERRED TO ROOM 411 VIA BED ACCOMPANIED BY THIS RN, ALL PERSONAL BELONGINGS SENT DOWN AT TIME OF TRANSFER. REPORT GIVEN TO Minal LOPEZ RN PRIOR TO TRANSFER.
[2021-01-04] MEDS: SULFAMETHOXAZOLE/TRIMETHO SUSP 10 ML (BACTRIM) UDC GT SCH (21:10)
--- NOTE | 2021-01-04 21:30 | NUR ---
ANTIBIOTIC ADMINISTERED THROUGH PEG TUBE, FLUSHED WITH 30 MLS BEFORE AND AFTER MEDICATION. PT TOLERATED WELL. WILL CONTINUE TO MONITOR
--- NOTE | 2021-01-05 04:30 | NUR ---
CHECKED RESIDUAL PRIOR TO TUBE FEEDING, RESIDUAL MORE THAN 50 MLS. TUBE FEEDING HELD AT THIS TIME
[2021-01-05] MEDS: HYDROCORTISONE 100 MG/2 ML (Solu-CORTEF) VIAL IV SCH ×3 (05:23→18:18)
[2021-01-05 05:38] LABS: BASOPHILS % (AUTO) 0 % (0-10); EOSINOPHILS % (AUTO) 0 % (0-10); HEMATOCRIT 23 % (40-54); HEMOGLOBIN 7.4 g/dL (13.3-17.7); LYMPHOCYTES # (AUTO) 0.7 10^3/uL (1.0-4.0); LYMPHOCYTES % (AUTO) 17 % (12-44); MEAN CORPUSCULAR HEMOGLOBIN 30 pg (25-34); MEAN CORPUSCULAR HGB CONC 33 g/dL (32-36); MEAN CORPUSCULAR VOLUME 92 fL (80-99); MEAN PLATELET VOLUME 11.4 fL (9.0-12.2); MONOCYTES # (AUTO) 0.3 10^3/uL (0.0-1.0); MONOCYTES % (AUTO) 8 % (0-12); NEUTROPHILS % (AUTO) 73 % (42-75); PLATELET COUNT 72 10^3/uL (130-400); WHITE BLOOD COUNT 4.1 10^3/uL (4.3-11.0)
[2021-01-05 05:44] LABS: CHLORIDE 113 MMOL/L (98-107); POTASSIUM 3.4 MMOL/L (3.6-5.0); SODIUM 146 MMOL/L (135-145)
[2021-01-05 05:46] LABS: CALCIUM 7.7 MG/DL (8.5-10.1); GLUCOSE 110 MG/DL (70-105)
[2021-01-05 05:48] LABS: CARBON DIOXIDE 28 MMOL/L (21-32)
[2021-01-05 05:50] LABS: CREATININE SERUM 0.69 MG/DL (0.60-1.30); GFR ESTIMATED > 60; PHOSPHORUS 2.7 MG/DL (2.3-4.7)
[2021-01-05 05:51] LABS: BUN/CREATININE RATIO 51
[2021-01-05 05:52] LABS: MAGNESIUM 1.9 MG/DL (1.6-2.4)
[2021-01-05] MEDS ORDERED: LACTULOSE SYRUP 10GM/15ML (ENULOSE) 30ML UDC NG PRN (08:00)
[2021-01-05] MEDS ORDERED: ACETAMINOPHEN 325 MG TABLET NG PRN (08:00)
[2021-01-05] MEDS ORDERED: ONDANSETRON 4 MG/2 ML (SDV) Z0FRAN IV PRN (08:00)
[2021-01-05] MEDS ORDERED: polyethylene glycoL POWDER 17 GM (MIRALAX) PACK NG PRN (08:00)
[2021-01-05] MEDS: MAGNESIUM 1 GM/100 ML IVPB 100 ML IV SCH (09:11)
[2021-01-05] MEDS: KCL 20 MEQ TAB (K-DUR) PO SCH (09:13)
[2021-01-05] MEDS: FOLIC ACID 1 MG TAB NG SCH (09:27)
[2021-01-05] MEDS: SULFAMETHOXAZOLE/TRIMETHO SUSP 10 ML (BACTRIM) UDC GT SCH ×2 (09:28→21:03)
[2021-01-05] MEDS: POTASSIUM CL 10MEQ/50ML IVPB 50 ML IV SCH ×3 (09:30→10:55)
--- NOTE | 2021-01-05 10:00 | NUR ---
PEG TUBE INTACT, CHECKED FOR RESIDUAL 50ML DARK RETURN, JEVITY 1.5 GIVEN 175ML FOLLOWED WITH 100 ML WATER, MARITO WELL, DR ANTUNEZ NOTIFIED AND ORDERS GIVEN FOR PROTONIX 40MG IV BID, INSTRUCTED NURSE TO HOLD TUBE FEEDING FOR RESIDUAL OVER 100ML
--- NOTE | 2021-01-05 10:52 | Progress Note - Hospitalist ---
Subjective HPI/CC On Admission Date Seen by Provider: Jan 05, 2021 Time Seen by Provider: 10:10 Jd Neves is a 65-year-old male with past medical history of cognitive impairment, chronic aspiration with PEG tube in place, who presented with altered mental status. He is unable to provide any history. He was reportedly found to have a low blood pressure at his residence, [place]. He had not had any fevers. [place] and his brother is unable to make any changes to his medical plan without petitioning the court. His brother does not wish to make any changes at this time though, and wishes for him to remain a full code. Subjective/Events-last exam He is awake and alert. He is smiling and appears to be happy. He says "bye". Objective Exam Vital Signs Vital Signs Date Time Temp Pulse Resp B/P (MAP) Pulse Ox O2 Delivery O2 Flow Rate FiO2 01/05/21 08:00 98 Room Air 01/05/21 07:40 36.7 52 16 114/54 (74) 01/01/21 18:33 21 Capillary Refill : Less Than 3 Seconds General Appearance: No Apparent Distress, Chronically ill Respiratory: Lungs Clear, Normal Breath Sounds, No Respiratory Distress Cardiovascular: Regular Rate, Rhythm, No Edema, No Murmur Gastrointestinal: Normal Bowel Sounds, Non Tender, Soft Extremity: Normal Inspection, Non Tender, No Pedal Edema Neurologic/Psychiatric: Alert, Normal Mood/Affect Skin: Normal Color, Warm/Dry Results/Procedures Lab Laboratory Tests 01/05/21 05:25 Patient resulted labs reviewed. Imaging: Reviewed Imaging Report Assessment/Plan Assessment and Plan Assess & Plan/Chief Complaint Pancytopenia Anemia Folic acid deficiency Hgb 7.4 s/p 2 units PRBC Begin folate supplement UTI Continue Bactrim Hypokalemia Hypophosphatemia Monitor and replace as needed Hypernatremia PEG in place Chronic aspiration Cognitive impairment Continue tube feeds and free water boluses DVT prophylaxis: Lovenox Septic shock, resolved Bradycardia, resolved Diagnosis/Problems Diagnosis/Problems (1) Anemia Status: Acute (2) Septic shock Status: Resolved Resolution Date/Time: 01/04/21 @ 11:48 (3) UTI (urinary tract infection) Status: Acute (4) Chronic pulmonary aspiration Status: Chronic (5) Hypernatremia Status: Acute (6) Cognitive impairment Status: Chronic (7) PEG (percutaneous endoscopic gastrostomy) status Status: Chronic (8) Pancytopenia Status: Chronic (9) Bradycardia Status: Resolved Resolution Date/Time: 01/04/21 @ 11:48 ELYSSA ANTUNEZ MD Jan 05, 2021 10:52
[2021-01-05] MEDS: PANTOPRAZOLE 40 MG (PROTONIX) VIAL IV SCH ×2 (10:55→21:03)
[2021-01-05 16:00] VITALS: BP 104/56
--- NOTE | 2021-01-05 18:36 | NUR ---
Assumed care of patient at 1730, report received from Neli SOTO.
[2021-01-05 20:00] VITALS: BP 110/59
[2021-01-06 00:42] VITALS: BP 117/59
[2021-01-06] MEDS: HYDROCORTISONE 100 MG/2 ML (Solu-CORTEF) VIAL IV SCH ×2 (00:45→05:50)
[2021-01-06 04:00] VITALS: BP 107/58
[2021-01-06 04:42] LABS: BASOPHILS % (AUTO) 0 % (0-10); EOSINOPHILS % (AUTO) 0 % (0-10); LYMPHOCYTES % (AUTO) 24 % (12-44); MEAN CORPUSCULAR VOLUME 94 fL (80-99); MEAN PLATELET VOLUME 11.6 fL (9.0-12.2)
[2021-01-06 04:44] LABS: HEMATOCRIT 22 % (40-54); LYMPHOCYTES # (AUTO) 0.8 10^3/uL (1.0-4.0); MEAN CORPUSCULAR HEMOGLOBIN 30 pg (25-34); MEAN CORPUSCULAR HGB CONC 32 g/dL (32-36); MONOCYTES # (AUTO) 0.4 10^3/uL (0.0-1.0); MONOCYTES % (AUTO) 10 % (0-12); NEUTROPHILS # (AUTO) 2.2 10^3/uL (1.8-7.8); NEUTROPHILS % (AUTO) 65 % (42-75); PLATELET COUNT 66 10^3/uL (130-400); WHITE BLOOD COUNT 3.4 10^3/uL (4.3-11.0)
[2021-01-06 04:51] LABS: CHLORIDE 113 MMOL/L (98-107); POTASSIUM 3.5 MMOL/L (3.6-5.0); SODIUM 147 MMOL/L (135-145)
[2021-01-06 04:53] LABS: CALCIUM 7.7 MG/DL (8.5-10.1); GLUCOSE 135 MG/DL (70-105)
[2021-01-06 04:55] LABS: CARBON DIOXIDE 27 MMOL/L (21-32)
[2021-01-06 04:57] LABS: CREATININE SERUM 0.69 MG/DL (0.60-1.30); GFR ESTIMATED > 60; PHOSPHORUS 2.8 MG/DL (2.3-4.7)
[2021-01-06 04:58] LABS: BUN/CREATININE RATIO 48
[2021-01-06 04:59] LABS: MAGNESIUM 2.1 MG/DL (1.6-2.4)
--- NOTE | 2021-01-06 05:30 | NUR ---
CHECKED RESIDUAL PRIOR TO TUBE FEEDING, RESIDUAL 110MLS, HELD FEEDING PER ORDER. WILL CONTINUE TO MONITOR
[2021-01-06] MEDS: KCL 20 MEQ TAB (K-DUR) PO SCH (05:33)
[2021-01-06] MEDS: MAGNESIUM 1 GM/100 ML IVPB 100 ML IV SCH (05:33)
[2021-01-06] MEDS ORDERED: NS IV 500 ML 500 ML ONE (05:42)
--- NOTE | 2021-01-06 06:26 | Pulmonary Progress Note ---
Subjective Time Seen by a Provider: 06:22 Subjective/Events-last exam Pt is on RA currently Sepsis Event Evaluation Height, Weight, BMI Height: 5'6.00" Weight: 139lbs. 0.0oz. 63.324381gm; 17.10 BMI Method:Actual Exam Exam Vital Signs Date Time Temp Pulse Resp B/P (MAP) Pulse Ox O2 Delivery O2 Flow Rate FiO2 01/06/21 04:00 36.4 51 18 107/58 (74) 93 Room Air 01/06/21 00:42 36.6 50 18 117/59 (78) 95 Room Air 01/05/21 20:59 Room Air 01/05/21 20:00 36.8 50 18 110/59 (76) 97 Room Air 01/05/21 16:00 36.6 54 16 104/56 (72) 96 Room Air 01/05/21 11:10 36.5 55 16 104/55 (71) 98 Room Air 01/05/21 08:00 98 Room Air 01/05/21 07:40 36.7 52 16 114/54 (74) 96 Room Air I & O 01/06/21 07:00 Intake Total 275 ml Output Total 850 ml Balance -575 ml Height & Weight Height: 5'6.00" Weight: 139lbs. 0.0oz. 63.655915ho; 17.10 BMI Method:Actual General Appearance: No Apparent Distress, Chronically ill HEENT: PERRL/EOMI, Other (dry mucous membranes) Neck: Normal Inspection, Supple Respiratory: Lungs Clear, Normal Breath Sounds, No Respiratory Distress Cardiovascular: Regular Rate, Rhythm, No Edema, No Murmur Capillary Refill: Less Than 3 Seconds Gastrointestinal: non tender, soft, no organomegaly, other (gastrostomy tube) Extremity: Normal Inspection, Non Tender, No Pedal Edema Neurologic/Psychiatric: Alert, Normal Mood/Affect Skin: Normal Color, Warm/Dry Results Lab Laboratory Tests 01/05/21 05:25 01/06/21 04:30 Assessment/Plan Assessment/Plan LLL PNA with sepsis -S/p Zosyn and Vancomycin -Currently on BCTM -IVF -Start TF per dietary recommendations S/P Septic shock -D/C Solucortef Pancytopenia Hypernatremia - improving - LR Hypoglycemia - D5LR UTI Hx of MR from [facility] PEG tube -Hold TF today. CHRISTIANO DARLING DO Jan 06, 2021 06:26
[2021-01-06] MEDS: POTASSIUM CL 10MEQ/50ML IVPB 50 ML IV SCH ×3 (06:32→07:39)
[2021-01-06 08:00] VITALS: BP 146/74
--- NOTE | 2021-01-06 09:01 | Discharge Summary ---
Diagnosis/Chief Complaint Date of Admission Dec 31, 2020 at 14:31 Date of Discharge Admission Diagnosis Septic shock Primary Care Ben Dunbar DO Discharge Diagnosis (1) Anemia Status: Acute (2) Septic shock Status: Resolved (3) UTI (urinary tract infection) Status: Acute (4) Chronic pulmonary aspiration Status: Chronic (5) Hypernatremia Status: Acute (6) Cognitive impairment Status: Chronic (7) PEG (percutaneous endoscopic gastrostomy) status Status: Chronic (8) Pancytopenia Status: Chronic (9) Bradycardia Status: Resolved Discharge Summary Discharge Physical Exam Allergies: Coded Allergies: No Known Drug Allergies (Unverified , 08/08/13) Vitals & I&Os Vital Signs Date Time Temp Pulse Resp B/P (MAP) Pulse Ox O2 Delivery O2 Flow Rate FiO2 01/06/21 11:41 01/06/21 08:00 36.3 50 16 93 Room Air 01/01/21 18:33 21 General Appearance: No Apparent Distress, Chronically ill, Cachetic Respiratory: Lungs Clear, No Respiratory Distress Cardiovascular: Regular Rate, Rhythm, No Murmur Gastrointestinal: Normal Bowel Sounds Neurologic/Psychiatric: Alert, Disoriented Hospital Course Pt was admitted to the hospital with septic shock from urinary tract infection. He was admitted to the ICU and treated with IV antibiotics and vasopressors and responded well. He was titrated off pressors and his antibiotics were adjusted to match sensitivities. He was discussed back to his facility to complete his course of Bactrim and to follow up with Dr Dunbar. Labs (last 24 hrs) Microbiology 12/31/20 Blood Culture - Final, Complete No growth 12/31/20 Urine Culture - Final, Complete Escherichia coli Patient resulted labs reviewed. Pending Labs Imaging: Reviewed Imaging Report Discussion & Recommendations Discharge Planning: >30 minutes discharge planning Discharge Home Medications: Active Scripts Active Folic Acid 1 Mg Tablet 1 Mg NG DAILY Sulfatrim Pediatric Suspension (Sulfamethoxazole/Trimethoprim) 473 Ml Oral.susp 10 Ml GT BID Reported Robafen (Guaifenesin) 100 Mg/5 Ml Liquid 20 Ml PEG TID Potassium Chloride 40 Meq/15 Ml Liquid 7.5 Ml PEG DAILY Famotidine 20 Mg Tablet 20 Mg PEG DAILY Furosemide 40 Mg Tablet 40 Mg PEG DAILY CRUSH TAB AND GIVE PER GTUBE Ibuprofen 100 Mg/5 Ml Oral.susp 20 Ml PEG Q6H PRN Acetaminophen 160 Mg/5 Ml Liquid 20 Ml PEG Q6H PRN FLUSH WITH 30ML OF WATER AFTER GIVING A DOSE Ondansetron Odt (Ondansetron) 4 Mg Tab.rapdis 4 Mg PO Q8H PRN Melatonin 5 Mg Tablet 5 Mg PEG HS Tetrahydrozoline HCl 15 Ml Drops 2 Drop OU Q6H PRN Milk of Magnesia (Magnesium Hydroxide) 400 Mg/5 Ml Oral.susp 30 Ml PEG Q12H PRN Olanzapine 10 Mg Tablet 10 Mg PEG HS Miralax (Polyethylene Glycol 3350) 17 Gm Powd.pack 17 Gm PEG DAILY Instructions to patient/family Please see electronic discharge instructions given to patient. Copy Copies To 1: BEN DUNBAR KATELYN M MD Jan 06, 2021 09:01
[2021-01-06] MEDS ORDERED: FOLI1TAB33 NG (09:34)
[2021-01-06] MEDS ORDERED: SMXTMP10ML GT (09:34)
--- NOTE | 2021-01-06 09:35 | Discharge Inst-Simple/Standard ---
Discharge Inst-Standard Discharge Medications New, Converted or Re-Newed RX: Transmitted to Pharmacy Patient Instructions/Follow Up Plan of Care/Instructions/FU: Please continue to take your medications as written. Please follow up with your primary care doctor to follow up this hospital stay. Activity as Tolerated: Yes Discharge Diet: Other Diet (Continue home PEG feeds) Return to The Hospital For: Chest pain, shortness of breath, fever, confusion, lethargy, high or low heart rate, if you feel you are getting worse. BETH ELENA MD Jan 06, 2021 09:35
[2021-01-06] MEDS: PANTOPRAZOLE 40 MG (PROTONIX) VIAL IV SCH (09:48)
[2021-01-06] MEDS: FOLIC ACID 1 MG TAB NG SCH (09:48)
[2021-01-06] MEDS: SULFAMETHOXAZOLE/TRIMETHO SUSP 10 ML (BACTRIM) UDC GT SCH (09:48)
--- NOTE | 2021-01-06 10:06 | NUR ---
CM/SS: Telephone call to [facility] - [phone] - spoke with nurse Rubi. She is notified that pt to be discharged today and the information will be faxed to [phone]. They are able to filler picker pt between 11:00am and 11:30am. Rubi is given the RN assigned to pt's telephone number for report. RN is notified of the above information.
--- NOTE | 2021-01-06 10:48 | NUR ---
CM/SS: Telephone Call to Maile Neves, - brother of pt. He is notified that pt will be discharging back to [facility] today between 11:00am and 11:30am. Maile thanks this worker for the update on pt.
== END 2021-01-06 11:44 | disposition home or self-care (01) | DRG 871 ==
LOC: EDUNIT# 10:30 → ER 10:31 → ICU 14:31 → 4TH 01-04 15:33
PROVIDERS: ADMIT Internal Medicine; ATTEND Internal Medicine
PROC: 02HV33Z Insertion of Infusion Device into Superior Vena Cava, Percutaneous Approach (ICD-10-PCS; principal; 2020-12-31)
DX: A41.51 Sepsis due to Escherichia coli [E. coli] (principal); R65.21 Severe sepsis with septic shock; J69.0 Pneumonitis due to inhalation of food and vomit; N39.0 Urinary tract infection, site not specified; E87.0 Hyperosmolality and hypernatremia; D61.818 Other pancytopenia; I95.9 Hypotension, unspecified; E16.2 Hypoglycemia, unspecified; E87.6 Hypokalemia; E83.39 Other disorders of phosphorus metabolism; D64.9 Anemia, unspecified; R00.1 Bradycardia, unspecified; F79 Unspecified intellectual disabilities; G40.909 Epilepsy, unspecified, not intractable, without status epilepticus; K21.9 Gastro-esophageal reflux disease without esophagitis; F41.9 Anxiety disorder, unspecified; Z93.1 Gastrostomy status
CPT/HCPCS: 36415; 71045; 71260; 74177; 80048; 80053; 81000; 82607; 82728; 82746; 82962; 83540; 83605; 83735; 84100; 84145; 85007; 85025; 85027; 85610; 85730; 86141; 86850; 86900; 86901; 86920; 87040; 87077; 87088; 87184; 87186; 93005; 94640

== ENCOUNTER 2021-01-11 20:48 | Inpatient (IN) | payer MEDICARE, MEDICAID ==
[~2021-01-11] VITALS: Ht 165 cm; Wt 42.2 kg
[~2021-01-11 20:48] MED LIST changes: +ACET160L40 PEG; +FAMO20TA5 PEG; +FOLI1TAB33 NG; +FURO40TA4 PEG; +GUAI-981 PEG; +IBP100U5 PEG; +SMXTMP10ML GT
[2021-01-11] MEDS ORDERED: LACTATED RINGERS 1,000 ML IV ONE (21:00)
[2021-01-11] MEDS ORDERED: ONDANSETRON 4 MG/2 ML (SDV) Z0FRAN IVP ONE (21:00)
[2021-01-11] MEDS ORDERED: NS IV 1000 ML 1,000 ML IV SCH (21:15)
[2021-01-11 21:21] LABS: BILIRUBIN,URINE NEGATIVE (NEGATIVE); CLARITY,URINE CLEAR; COLOR,URINE YELLOW; GLUCOSE, URINE (UA) NEGATIVE (NEGATIVE); KETONES,URINE NEGATIVE (NEGATIVE); LEUKOCYTE ESTERASE ,URINE NEGATIVE (NEGATIVE); NITRITE,URINE NEGATIVE (NEGATIVE); PROTEIN,URINE NEGATIVE (NEGATIVE)
[2021-01-11 21:30] LABS: BASOPHILS % (AUTO) 0 % (0-10); EOSINOPHILS % (AUTO) 0 % (0-10); HEMATOCRIT 21 % (40-54); LYMPHOCYTES # (AUTO) 0.5 10^3/uL (1.0-4.0); LYMPHOCYTES % (AUTO) 4 % (12-44); MEAN CORPUSCULAR HEMOGLOBIN 31 pg (25-34); MEAN CORPUSCULAR HGB CONC 32 g/dL (32-36); MEAN CORPUSCULAR VOLUME 95 fL (80-99); MONOCYTES % (AUTO) 9 % (0-12); NEUTROPHILS % (AUTO) 87 % (42-75); PLATELET COUNT 278 10^3/uL (130-400); WHITE BLOOD COUNT 11.6 10^3/uL (4.3-11.0)
[2021-01-11 21:31] LABS: BACTERIA,URINE TRACE /HPF; RBC,URINE 0-2 /HPF; SQUAMOUS EPITHELIAL CELL,UR 0-2 /HPF
[2021-01-11 21:33] LABS: HEMOGLOBIN 6.8 g/dL (13.3-17.7)
[2021-01-11 21:40] LABS: ALBUMIN 2.3 GM/DL (3.2-4.5); POTASSIUM 5.2 MMOL/L (3.6-5.0)
[2021-01-11 21:42] LABS: CALCIUM 8.5 MG/DL (8.5-10.1)
[2021-01-11 21:43] LABS: TOTAL PROTEIN 5.3 GM/DL (6.4-8.2)
[2021-01-11 21:44] LABS: BILIRUBIN,TOTAL 0.4 MG/DL (0.1-1.0)
[2021-01-11 21:46] LABS: CREATININE SERUM 2.02 MG/DL (0.60-1.30)
[2021-01-11 21:49] LABS: MAGNESIUM 2.6 MG/DL (1.6-2.4)
[2021-01-11 21:59] LABS: ANISOCYTOSIS SLIGHT; LYMPHOCYTES % (MANUAL) 3 %; MONOCYTES % (MANUAL) 3 %; NEUTROPHILS % (MANUAL) 94 %; POLYCHROMASIA SLIGHT
[2021-01-11 22:00] VITALS: BP_SYST 49; BP_SYST 51; BP_DIAS 30; BP_DIAS 35
[2021-01-11] MEDS ORDERED: PROMETHAZINE INJ 25 MG/ML (PHENERGAN) AMP IVP PRN (22:15)
[2021-01-11] MEDS ORDERED: LORazepam INJ 2 MG/ML (ATIVAN) VIAL IVP PRN (22:15)
[2021-01-11] MEDS ORDERED: LORazepam ORAL CONCENTRATE 2 MG/ML 30 ML (ATIVAN) PO PRN (22:15)
[2021-01-11] MEDS ORDERED: RT-ALBUTEROL/IPRATROPIUM 3 ML (DUONEB) VIAL INH PRN (22:15)
[2021-01-11] MEDS ORDERED: ATROPINE 1% OPHTHALMIC SOLN 5 ML SL PRN (22:15)
[2021-01-11] MEDS ORDERED: ONDANSETRON 4 MG/2 ML (SDV) Z0FRAN IVP PRN (22:15)
[2021-01-11] MEDS ORDERED: BISACODYL 10 MG SUPP (DULCOLAX) PR PRN (22:15)
--- NOTE | 2021-01-11 22:24 | Diagnostic Imaging Report ---
Clinical indication: Patient with vomiting with past history of aspiration. Exam: Portable chest x-ray upright view. Comparison: Chest x-ray dated 01/04/2021. Findings: There is interval improved aeration in the left lung base. There is slight progression of patchy lung infiltrates involving the right midlung field and right lung base. There is no pleural effusion or pneumothorax. Pulmonary vasculature and cardiac silhouette within normal limits. Interval removal of the previously seen right IJ central line. Impression: 1: There is interval progression of patchy lung infiltrates involving right midlung field right lung base. 2: There is slight improved aeration of the left lung base with minimal infiltrate remaining. Dictated by: Dictated on workstation # [id number]
[2021-01-11] MEDS: GLYCOPYRROLATE 0.2 MG/ML (ROBINUL) 2 ML VIAL IV PRN (22:46)
[2021-01-11] MEDS: SCOPOLAMINE 1.5 MG (TRANSDERM-SCOP) PATCH TOP SCH (22:46)
--- NOTE | 2021-01-12 05:07 | ED GI ---
General Chief Complaint: Abdominal/GI Problems Stated Complaint: STEMI,SEVERE ANEMIA,SHOCK Nursing Triage Note: PT TO ED FOR C/O VOMITING ET UNRESPONSIVE. PER EMS, CALLED TO FACILITY FOR PT W/ LOW SPO2 ET VOMITING. PER EMS, PT NON VERBAL CHRONIC STATUS. PT PRESENTLY, NON VERBAL, RESPONSIVE TO PAINFUL STIMULI ONLY. PT RECENTLY DISCHARGED FROM THIS FACILITY FOR PNEUMONIA. Sepsis Screen: No Definite Risk Source of Information: EMS, Old Records Exam Limitations: Other (PT OBTUNDED AND WITH MR AND IS UNABLE TO GIVE ANY INFORMATION. NO REPORT FROM [facility]) History of Present Illness Date Seen by Provider: Jan 11, 2021 Time Seen by Provider: 20:50 Initial Comments PT ARRIVES VIA EMS FROM [facility] CALLED FOR PT WITH VOMITING AND "LOW O2 SAT" IN 60'S--EMS REPORT O2 SAT OF 91% ON THEIR ARRIVAL AT [facility] VERY FAMILIAR WITH PT AND REPORT THAT PT IS AT HIS NORMAL BASELINE EVERY TIME THEY HAVE TRANSPORTED THE PT PT ESSENTIALLY OBTUNDED, EYES CLOSED, NON-VERBAL, NOT FOLLOWING COMMANDS PT WITH DARK VOMITUS--COFFEE-GROUND EMESIS, IN AND AROUND MOUTH, ON CLOTHING AND WITH UPPER AIRWAY NOISE/GURGLING--SUCTIONED ON ARRIVAL. PT WITH PEG TUBE/FEEDING TUBE IN PLACE PT WITH MULTITUDE OF VISITS, MOST RECENTLY ADMITTED 12/31/20-01/06/21 FOR SEPTIC SHOCK, UTI, ACUTE ANEMIA, RECURRENT/CHRONIC ASPIRATION PNEUMONIA ADMITTED 11/07/20-12/03/20 FOR GI BLEED, ASPIRATION PNEUMONIA. AND PEG TUBE WAS PLACED AT THAT TIME PT IS CURRENTLY A FULL CODE. PT'S BROTHER IS LEGAL GUARDIAN. PCP: DR. DUNBAR Allergies and Home Medications Allergies Coded Allergies: No Known Drug Allergies (Unverified , 08/08/13) Home Medications Acetaminophen 160 Mg/5 Ml Liquid, 20 ML PEG Q6H PRN for PAIN-MILD (1-4) OR TEMPATURE, (Reported) FLUSH WITH 30ML OF WATER AFTER GIVING A DOSE Famotidine 20 Mg Tablet, 20 MG PEG DAILY, (Reported) Folic Acid 1 Mg Tablet, 1 MG NG DAILY Prescribed by: BETH ELENA on 01/06/21 0946 Furosemide 40 Mg Tablet, 40 MG PEG DAILY, (Reported) CRUSH TAB AND GIVE PER GTUBE Guaifenesin 100 Mg/5 Ml Liquid, 20 ML PEG TID, (Reported) Ibuprofen 100 Mg/5 Ml Oral.susp, 20 ML PEG Q6H PRN for RESTLESSNESS, (Reported) Magnesium Hydroxide 400 Mg/5 Ml Oral.susp, 30 ML PEG Q12H PRN for CONSTIPATION- 7TH LINE, (Reported) Melatonin 5 Mg Tablet, 5 MG PEG HS, (Reported) Olanzapine 10 Mg Tablet, 10 MG PEG HS, (Reported) Ondansetron 4 Mg Tab.rapdis, 4 MG PO Q8H PRN for NAUSEA/VOMITING-1ST LINE, (Reported) Polyethylene Glycol 3350 17 Gm Powd.pack, 17 GM PEG DAILY, (Reported) Potassium Chloride 40 Meq/15 Ml Liquid, 7.5 ML PEG DAILY, (Reported) Sulfamethoxazole/Trimethoprim 473 Ml Oral.susp, 10 ML GT BID Prescribed by: BETH ELENA on 01/06/21 0934 Tetrahydrozoline HCl 15 Ml Drops, 2 DROP OU Q6H PRN for REDNESS/IRRITATION, (Reported) Patient Home Medication List Home Medication List Reviewed: Yes Review of Systems Review of Systems Constitutional: other (UNABLE TO OBTAIN FROM PT. ) Past Wuvyhyd-Asmsht-Vrglgv Hx Past Med/Social Hx: Reviewed and Corrections made Patient Social History Alcohol Use: Denies Use Smoking Status: Never a Smoker 2nd Hand Smoke Exposure: No Recent Infectious Disease Expo: No Recent Hopitalizations: No Have you traveled recently?: No Alcohol Use?: No Immunizations Up To Date Tetanus Booster (TDap): Unknown PED Vaccines UTD: No Date of Pneumonia Vaccine: Aug 29, 2009 Date of Influenza Vaccine: Sep 29, 2020 Seasonal Allergies Seasonal Allergies: No Past Medical History Surgeries: Yes (CYST FROM CHEEK, PEG TUBE 10/2020) Abdominal Respiratory: Yes (CHRONIC ASPIRATION PNEUMONIA) Pneumonia Currently Using CPAP: No Currently Using BIPAP: No Cardiac: No Neurological: Yes (SEVERE MR/QTY-FVIYBX-TDS-COMMUNICATIVE) Developmental Disorder, Seizure Disorder Reproductive Disorders: No Sexually Transmitted Disease: No HIV/AIDS: No Genitourinary: No Gastrointestinal: Yes (DYSPHAGIA WITH CHRONIC ASPIRATION; PEG TUBE PLACED 10/2020) Gastroesophageal Reflux, Gastrointestinal Bleed, Chronic Constipation, Esophagitis, Ulcer, Gall Bladder Disease Musculoskeletal: Yes (FOOT DEFORMITIES) Endocrine: No HEENT: Yes Dysphagia Loss of Vision: Denies Cancer: No Psychosocial: Yes (SEVERE MR) Anxiety Integumentary: No Blood Disorders: No Family Medical History Patient reports no known family medical history. No Pertinent Family Hx Physical Exam Vital Signs Vital Signs - First Documented Capillary Refill : Greater Than 3 SecondsGreater Than 3 Seconds Height/Weight/BMI Height: 5'6.00" Weight: 139lbs. 0.0oz. 63.539080sc; 15.50 BMI Method:Actual General Appearance: cachetic, other (PT IS OBTUNDED, WITH DARK, COFFEE-GROUND VOMITUS AROUND AND IN MOUTH AND ON CLOTHING, WITH GURGLING /UPPER AIRWAY NOISE. PT HAVING PERIODS OF APNEA. ) Respiratory: decreased breath sounds (DECREASED AERATION IN ALL LUNG TELLEZ. ) Cardiovascular: regular rate, rhythm Gastrointestinal: other (EMACIATED, PEG TUBE IN UPPER ABDOMEN WITHOUT SIGNS OF INFECTION OR LEAKING. ) Extremities: slow capillary refill Neurologic/Psychiatric: other (OBTUNDED) Skin: cool, pallor Progress/Results/Core Measures Results/Orders Lab Results Laboratory Tests Test 01/11/21 21:10 01/11/21 21:22 Range/Units Urine Color YELLOW Urine Clarity CLEAR Urine pH 7.0 5-9 Urine Specific [place] 1.020 1.016-1.022 Urine Protein NEGATIVE NEGATIVE Urine Glucose (UA) NEGATIVE NEGATIVE Urine Ketones NEGATIVE NEGATIVE Urine Nitrite NEGATIVE NEGATIVE Urine Bilirubin NEGATIVE NEGATIVE Urine Urobilinogen 0.2 < = 1.0 MG/DL Urine Leukocyte Esterase NEGATIVE NEGATIVE Urine RBC (Auto) NEGATIVE NEGATIVE Urine RBC 0-2 /HPF Urine WBC 10-25 H /HPF Urine Squamous Epithelial Cells 0-2 /HPF Urine Crystals NONE /LPF Urine Bacteria TRACE /HPF Urine Casts NONE /LPF Urine Mucus NEGATIVE /LPF Urine Culture Indicated NO White Blood Count 11.6 H 4.3-11.0 10^3/uL Red Blood Count 2.21 L 4.30-5.52 10^6/uL Hemoglobin 6.8 *L 13.3-17.7 g/dL Hematocrit 21 L 40-54 % Mean Corpuscular Volume 95 80-99 fL Mean Corpuscular Hemoglobin 31 25-34 pg Mean Corpuscular Hemoglobin Concent 32 32-36 g/dL Red Cell Distribution Width 17.9 H 10.0-14.5 % Platelet Count 278 130-400 10^3/uL Mean Platelet Volume 12.0 9.0-12.2 fL Immature Granulocyte % (Auto) 1 % Neutrophils (%) (Auto) 87 H 42-75 % Lymphocytes (%) (Auto) 4 L 12-44 % Monocytes (%) (Auto) 9 0-12 % Eosinophils (%) (Auto) 0 0-10 % Basophils (%) (Auto) 0 0-10 % Neutrophils # (Auto) 10.0 H 1.8-7.8 10^3/uL Lymphocytes # (Auto) 0.5 L 1.0-4.0 10^3/uL Monocytes # (Auto) 1.0 0.0-1.0 10^3/uL Eosinophils # (Auto) 0.0 0.0-0.3 10^3/uL Basophils # (Auto) 0.0 0.0-0.1 10^3/uL Immature Granulocyte # (Auto) 0.1 0.0-0.1 10^3/uL Neutrophils % (Manual) 94 % Lymphocytes % (Manual) 3 % Monocytes % (Manual) 3 % Polychromasia SLIGHT Anisocytosis SLIGHT Blood Morphology Comment NA Sodium Level 142 135-145 MMOL/L Potassium Level 5.2 H 3.6-5.0 MMOL/L Chloride Level 96 L 98-107 MMOL/L Carbon Dioxide Level 32 21-32 MMOL/L Anion Gap 14 5-14 MMOL/L Blood Urea Nitrogen 56 H 7-18 MG/DL Creatinine 2.02 H 0.60-1.30 MG/DL Estimat Glomerular Filtration Rate 33 BUN/Creatinine Ratio 28 Glucose Level 113 H 70-105 MG/DL Calcium Level 8.5 8.5-10.1 MG/DL Corrected Calcium 9.9 8.5-10.1 MG/DL Magnesium Level 2.6 H 1.6-2.4 MG/DL Total Bilirubin 0.4 0.1-1.0 MG/DL Aspartate Amino Transf (AST/SGOT) 65 H 5-34 U/L Alanine Aminotransferase (ALT/SGPT) 75 H 0-55 U/L Alkaline Phosphatase 80 40-136 U/L Troponin I 0.031 H <0.028 NG/ML Total Protein 5.3 L 6.4-8.2 GM/DL Albumin 2.3 L 3.2-4.5 GM/DL Amylase Level 49 25-125 U/L Lipase 14 8-78 U/L My Orders Orders - MAU GREEN DO Ed Iv/Invasive Line Start (01/11/21 20:55) Ekg Tracing (01/11/21 20:55) O2 (01/11/21 20:55) Monitor-Rhythm Ecg Trace Only (01/11/21 20:55) Amylase (01/11/21 20:55) Cbc With Automated Diff (01/11/21 20:55) Comprehensive Metabolic Panel (01/11/21 20:55) Lipase (01/11/21 20:55) Magnesium (01/11/21 20:55) Ua Culture If Indicated (01/11/21 20:55) Ed Iv/Invasive Line Start (01/11/21 20:55) Lactated Ringers (Lr 1000 Ml Iv Solution (01/11/21 21:00) Ondansetron Injection (Zofran Injectio (01/11/21 21:00) Troponin I (01/11/21 20:55) Chest 1 View, Ap/Pa Only (01/11/21 20:55) Ed Iv/Invasive Line Start (01/11/21 21:08) Ns Iv 1000 Ml (Sodium Chloride 0.9%) (01/11/21 21:15) Catheter(Urinary) Insert & Ass 03,15 (01/11/21 21:08) Covid 19 Inhouse Test (01/11/21 21:11) Manual Differential (01/11/21:22) Medications Given in ED Current Medications Medications Dose Ordered Sig/Yoel Route Start Time Stop Time Status Last Admin Dose Admin Lactated Ringer's 1,000 ml @ 0 mls/hr Q0M ONCE IV 01/11/21 21:00 01/11/21 21:01 DC 01/11/21 21:15 0 MLS/HR Ondansetron HCl 8 mg ONCE ONCE IVP 01/11/21 21:00 01/11/21 21:01 DC 01/11/21 21:15 8 MG Vital Signs/I&O 01/11/21 01/11/21 20:50 20:50 Temp 36.7 Pulse 92 Resp 24 B/P (MAP) 50/28 (35) Pulse Ox 95 O2 Delivery Nasal Cannula Nasal Cannula O2 Flow Rate 2.00 Blood Pressure Mean: 36 Progress Progress Note : Progress Note ABOVE. SEE NURSING NOTES. Initial ECG Impression Date: Jan 11, 2021 Initial ECG Impression Time: 21:06 Initial ECG Rate: 88 Initial ECG Rhythm: Normal Sinus Initial ECG Impression: Acute FL (ACUTE INFERIOR STEMI. ) Diagnostic Imaging Comments CXR--PER RADIOLOGIST REPORT Findings: There is interval improved aeration in the left lung base. There is slight progression of patchy lung infiltrates involving the right midlung field and right lung base. There is no pleural effusion or pneumothorax. Pulmonary vasculature and cardiac silhouette within normal limits. Interval removal of the previously seen right IJ central line. Impression: 1: There is interval progression of patchy lung infiltrates involving right midlung field right lung base. 2: There is slight improved aeration of the left lung base with minimal infiltrate remaining. Reviewed: Reviewed by Me Critical Care Note Critical Care Start Time: 20:50 Total Time (minutes) 30 Progress ON ARRIVAL, AGGRESSIVE FLUID THERAPY, WITH [address] ON O2 PT WITH MULTIPLE EPISODES OF APNEA LASTING 15-30 SECONDS. COMPRESSIONS PERFORMED ONCE AND PT IMMEDIATELY BEGAN BREATHING AGAIN. BP 40'S/30'S ON ARRIVAL. O2 SAT 95% ON 2L/NC AFTER DISCUSSING WITH FAMILY AND DR. ELENA AND DR. DUNBAR, IT WAS DECIDED TO MAKE PT A DNR AND NO FURTHER AGGRESSIVE TREATMENTS WERE DONE IN ER. WILL PLACE PT ON COMFORT CARE. Departure Communication (Admissions) 2114--SPOKE WITH YUNG, PT'S BROTHER, AND LEGAL GUARDIAN. INFORMED HIM OF PT'S CONDITION, AND OFFERED AGGRESSIVE TREATMENT INCLUDING CARDIOLOGY INVOLVEMENT WITH POSSIBLE CARDIAC CATH, POSSIBLE TRANSFER TO ANOTHER FACILITY WITH HIGHER LEVEL OF CARE IF HE SHOULD NEED BYPASS SURGERY OR ANY OTHER AGGRESSIVE INTERVENTIONS. BROTHER STATES THAT HE WOULD LIKE COMFORT MEASURES ONLY TO BE DONE, AND WOULD LIKE PT TO BE DNR, AND STATES THAT HE HAS BEEN WANTING TO DO THIS "BUT NEVER GOT AROUND TO DOING IT--IT TAKES ALOT OF WORK". 2117--SPOKE WITH DR. ELENA, HOSPITALIST, SHE IS VERY FAMILIAR WITH PT AND HIS BROTHER, AND HAS ADVISED BROTHER ON PREVIOUS ADMITS THAT HE SHOULD CONSIDER MAKING PT A DNR, DUE TO HIS VERY POOR AND DECLINING HEALTH. SHE IS IN COMPLETE AGREEMENT WITH MAKING PT DNR STATUS AND PLACING ON COMFORT MEASURES, AND ACCEPTS PT FOR ADMIT. 2122--SPOKE WITH DR. DUNBAR, PT'S PCP. DISCUSSED PT'S CURRENT STATE, AND HE ALSO AGREES COMPLETELY WITH MAKING PT DNR STATUS AND PLACING ON COMFORT CARE. I AGREE WITH THE ABOVE WELL, PT IS IN CRITICAL CONDITION AT THIS TIME AND NOT A CANDIDATE FOR ANY CARDIAC INTERVENTION , AND IS VERY UNLIKELY TO SURVIVE THIS DUE TO OTHER CO-MORBIDITIES. Impression Primary Impression: STEMI (ST elevation myocardial infarction) Additional Impressions: Shock Severe anemia Renal failure Emaciation SUSPECTED RECURRENT ASPIRATION MULTIPLE EPISODES OF APNEA SHOCK LIKELY MULTIFACTORIAL--CARDIOGENIC, HYPOVOLEMIC, SEPTIC Severe mental handicap Severe malnutrition Disposition: ADMITTED INPATIENT Condition: Critical Admissions Decision to Admit Reason: Admit from ER (General) Decision to Admit/Date: Jan 11, 2021 Time/Decision to Admit Time: 21:25 Departure-Patient Inst. Referrals: JUSTIN DUNBAR DO (PCP/Family) Primary Care Physician MAU GREEN DO Jan 12, 2021 05:07
[2021-01-12] MEDS: GLYCOPYRROLATE 0.2 MG/ML (ROBINUL) 2 ML VIAL IV PRN ×2 (05:43→22:51)
[2021-01-12] MEDS: morphine INJ 4 MG/ML 1 ML (VIAL/SYRINGE) IV PRN ×2 (05:43→14:50)
--- NOTE | 2021-01-12 11:00 | History & Physical-Hospitalist ---
History of Present Illness HPI/Chief Complaint Pt is a 65yoCM well known to me from [facility] previous admission who presented to the ER due to vomiting. He is unable to provide any history at this time and all of his history is obtained from the chart. He was found to have STEMI and Dr Messina called his brother who is his guardian to discuss goals of care and consent for invasive treatment. His BP was 50/28 on arrival and in apparent cardiogenic shock. His brother elected no invasive procedures including no cardiac cath. He requested measures geared only towards his comfort. This morning Kirt is resting comfortably in his bed and opened his eyes briefly but w jenaro spoke to him. Source: patient Date Seen 01/12/21 Time Seen by a Provider: 08:50 Attending Physician Beth Gage MD PCP Ben Parker DO Referring Physician Date of Admission Jan 11, 2021 at 21:25 Home Medications & Allergies Home Medications Reviewed patient Home Medication Reconciliation performed by pharmacy medication reconciliations maintenance mechanic technician and/or nursing. Patients Allergies have been reviewed. Allergies Allergies Coded Allergies No Known Drug Allergies (Unverified08/08/13) Past Eydtxhe-Phewzp-Aqjwmd Hx Past Med/Social Hx: Reviewed Nursing Past Med/Soc Hx, Reviewed and Corrections made Patient Social History Employed/Student: unemployed Alcohol Use: Denies Use Recreational Drug Use: No Smoking Status: Never a Smoker 2nd Hand Smoke Exposure: No Recent Foreign Travel: No Contact w/other who traveled: No Recent Hopitalizations: No Recent Infectious Disease Expo: No Immunizations Up To Date Tetanus Booster (TDap): Unknown Pediatric: No Date of Pneumonia Vaccine: Aug 29, 2009 Date of Influenza Vaccine: Sep 29, 2020 Seasonal Allergies Seasonal Allergies: No Past Medical History Surgeries: Abdominal Currently Using CPAP: No Currently Using BIPAP: No Neurological: Developmental Disorder, Seizure Disorder Reproductive: No Sexually Transmitted Disease: No HIV/AIDS: No Gastrointestinal: Gastroesophageal Reflux, Gastrointestinal Bleed, Chronic Constipation, Esophagitis, Ulcer, Gall Bladder Disease HEENT: Dysphagia Loss of Vision: Denies Psychosocial: Anxiety History of Blood Disorders: No Family History Reviewed Nursing Family Hx Patient reports no known family medical history. No Pertinent Family Hx Review of Systems Constitutional: see HPI Physical Exam Physical Exam Vital Signs Vital Signs - First Documented Capillary Refill : Greater Than 3 SecondsGreater Than 3 Seconds Height, Weight, BMI Height: 5'6.00" Weight: 139lbs. 0.0oz. 63.460032rw; 15.50 BMI Method:Actual General Appearance: No Apparent Distress, Chronically ill, Cachetic HEENT: Moist Mucous Membranes Neck: Normal Inspection, Supple Respiratory: No Accessory Muscle Use; No Crackles; Decreased Breath Sounds Cardiovascular: Regular Rate, Rhythm, No Murmur Gastrointestinal: Normal Bowel Sounds, Non Tender, Soft, Other (PEG in place) Neurologic/Psychiatric: Other (sleeping, opened eyes briefly, answered no questions- only slightly diminished from his baseline) Results Results/Procedures Labs Laboratory Tests 01/11/21 21:22 Patient resulted labs reviewed. Imaging: Reviewed Imaging Report Imaging [facility] [place] NAME: KIRT [facility]OMPSON [facility] REC#: [id number] PT STATUS: ADM IN : 1955 PHYSICIAN: MAU MESSINA DO ADMIT DATE: 01/11/21 Signed Date of Exam:01/11/21 CHEST 1 VIEW, AP/PA ONLY Clinical indication: Patient with vomiting with past history of aspiration. Exam: Portable chest x-ray upright view. Comparison: Chest x-ray dated 01/04/2021. Findings: There is interval improved aeration in the left lung base. There is slight progression of patchy lung infiltrates involving the right midlung field and right lung base. There is no pleural effusion or pneumothorax. Pulmonary vasculature and cardiac silhouette within normal limits. Interval removal of the previously seen right IJ central line. Impression: 1: There is interval progression of patchy lung infiltrates involving right midlung field right lung base. 2: There is slight improved aeration of the left lung base with minimal infiltrate remaining. Dictated by: Dictated on workstation # [id number] Dict: 01/11/212217 Trans: 01/11/212225 [facility] [id number] Interpreted by: ERICA LIU MD Electronically signed by: ERICA LIU MD 01/11/212225 Assessment/Plan Admission Diagnosis Cardiogenic shock from STEMI Admission Status: Inpatient Order (span 2 midnights) Reason for Inpatient Admission: see below Assessment and Plan Cardiogenic shock from STEMI Brother who is guardian has elected comfort measures only I agree with Dr Messina and Dr Parker that this is in Kirt's best interest as he has been in a rapid decline in health for the last few months with multiple hospitalization that have progressed in severity each time, CPR would be futile care Comfort care orderset place Kirt prefers to have music on so discussed with nurse to play music for his comfort BETH GAGE MD Jan 12, 2021 11:00
[2021-01-13] MEDS: GLYCOPYRROLATE 0.2 MG/ML (ROBINUL) 2 ML VIAL IV PRN (06:02)
[2021-01-13] MEDS: morphine INJ 4 MG/ML 1 ML (VIAL/SYRINGE) IV PRN ×4 (06:02→17:31)
--- NOTE | 2021-01-13 14:54 | Progress Note - Hospitalist ---
Subjective HPI/CC On Admission Date Seen by Provider: Jan 13, 2021 Time Seen by Provider: 10:30 Pt is a 65yoCM well known to me from [facility] previous admission who presented to the ER due to vomiting. He is unable to provide any history at this time and all of his history is obtained from the chart. He was found to have STEMI and Dr Messina called his brother who is his guardian to discuss goals of care and consent for invasive treatment. His BP was 50/28 on arrival and in apparent cardiogenic shock. His brother elected no invasive procedures including no cardiac cath. He requested measures geared only towards his comfort. This morning Jd is resting comfortably in his bed and opened his eyes briefly but when spoke to him. Subjective/Events-last exam He is unresponsive. Objective Exam Vital Signs Vital Signs Date Time Temp Pulse Resp B/P (MAP) Pulse Ox O2 Delivery O2 Flow Rate FiO2 01/13/21 08:00 80 Room Air 0.00 01/11/21 22:00 82 20 51/35 01/11/21 22:00 36.4 Capillary Refill : Greater Than 3 SecondsGreater Than 3 Seconds General Appearance: Chronically ill, Thin Respiratory: Lungs Clear, Normal Breath Sounds, Other (Periods of apnea) Cardiovascular: Regular Rate, Rhythm, No Edema, No Murmur Gastrointestinal: Soft, Abnormal Bowel Sounds (hypoactive) Extremity: Normal Inspection, No Pedal Edema Neurologic/Psychiatric: Other (obtunded, withdraws from pain) Skin: Normal Color, Warm/Dry Results/Procedures Lab Patient resulted labs reviewed. Imaging: Reviewed Imaging Report Assessment/Plan Assessment and Plan Assess & Plan/Chief Complaint Cardiogenic shock STEMI Cognitive impairment Chronic aspiration with recurrent aspiration pneumonia PEG tube in place Low BMI Continue comfort measures Diagnosis/Problems Diagnosis/Problems (1) STEMI (ST elevation myocardial infarction) Status: Acute (2) Shock Status: Acute (3) Chronic pulmonary aspiration Status: Chronic (4) Cognitive impairment Status: Chronic (5) PEG (percutaneous endoscopic gastrostomy) status Status: Chronic ELYSSA ANTUNEZ MD Jan 13, 2021 14:54
[2021-01-14] MEDS: morphine INJ 4 MG/ML 1 ML (VIAL/SYRINGE) IV PRN ×2 (06:54→16:47)
--- NOTE | 2021-01-14 12:29 | Progress Note - Hospitalist ---
Subjective HPI/CC On Admission Date Seen by Provider: Jan 14, 2021 Time Seen by Provider: 09:50 Pt is a 65yoCM well known to me from [facility] previous admission who presented to the ER due to vomiting. He is unable to provide any history at this time and all of his history is obtained from the chart. He was found to have STEMI and Dr Messina called his brother who is his guardian to discuss goals of care and consent for invasive treatment. His BP was 50/28 on arrival and in apparent cardiogenic shock. His brother elected no invasive procedures including no cardiac cath. He requested measures geared only towards his comfort. This morning Jd is resting comfortably in his bed and opened his eyes briefly but when spoke to him. Subjective/Events-last exam He is unresponsive. Objective Exam Vital Signs Vital Signs Date Time Temp Pulse Resp B/P (MAP) Pulse Ox O2 Delivery O2 Flow Rate FiO2 01/14/21 08:00 80 Room Air 0.00 01/11/21 22:00 82 20 51/35 01/11/21 22:00 36.4 Capillary Refill : Greater Than 3 SecondsGreater Than 3 Seconds General Appearance: No Apparent Distress, Chronically ill, Cachetic Respiratory: No Respiratory Distress Cardiovascular: Regular Rate, Rhythm Gastrointestinal: Soft, Abnormal Bowel Sounds Extremity: Normal Inspection, No Pedal Edema Neurologic/Psychiatric: Other (unresponsive) Skin: Warm/Dry, Pallor Results/Procedures Lab Patient resulted labs reviewed. Imaging: Reviewed Imaging Report Assessment/Plan Assessment and Plan Assess & Plan/Chief Complaint Cardiogenic shock STEMI Cognitive impairment Chronic aspiration with recurrent aspiration pneumonia PEG tube in place Low BMI Continue comfort measures Diagnosis/Problems Diagnosis/Problems (1) STEMI (ST elevation myocardial infarction) Status: Acute (2) Shock Status: Acute (3) Chronic pulmonary aspiration Status: Chronic (4) Cognitive impairment Status: Chronic (5) PEG (percutaneous endoscopic gastrostomy) status Status: Chronic ELYSSA ANTUNEZ MD Jan 14, 2021 12:29
[2021-01-14] MEDS: SCOPOLAMINE 1.5 MG (TRANSDERM-SCOP) PATCH TOP SCH (22:01)
[2021-01-15] MEDS: morphine INJ 4 MG/ML 1 ML (VIAL/SYRINGE) IV PRN (05:04)
--- NOTE | 2021-01-15 11:09 | Progress Note - Hospitalist ---
Subjective HPI/CC On Admission Date Seen by Provider: Jan 15, 2021 Time Seen by Provider: 09:45 Pt is a 65yoCM well known to me from [facility] previous admission who presented to the ER due to vomiting. He is unable to provide any history at this time and all of his history is obtained from the chart. He was found to have STEMI and Dr Messina called his brother who is his guardian to discuss goals of care and consent for invasive treatment. His BP was 50/28 on arrival and in apparent cardiogenic shock. His brother elected no invasive procedures including no cardiac cath. He requested measures geared only towards his comfort. This morning Jd is resting comfortably in his bed and opened his eyes briefly but when spoke to him. Subjective/Events-last exam He is unresponsive. Objective Exam Vital Signs Vital Signs Date Time Temp Pulse Resp B/P (MAP) Pulse Ox O2 Delivery O2 Flow Rate FiO2 01/15/21 08:00 Room Air 01/14/21 08:00 80 0.00 01/11/21 22:00 82 20 51/35 01/11/21 22:00 36.4 Capillary Refill : Greater Than 3 SecondsGreater Than 3 Seconds General Appearance: No Apparent Distress, Chronically ill, Cachetic Respiratory: Lungs Clear, No Respiratory Distress Cardiovascular: No Edema, No Murmur, Bradycardia Gastrointestinal: Normal Bowel Sounds, Soft Extremity: Normal Inspection, No Pedal Edema Neurologic/Psychiatric: Other (unresponsive) Skin: Warm/Dry, Pallor Results/Procedures Lab Patient resulted labs reviewed. Assessment/Plan Assessment and Plan Assess & Plan/Chief Complaint Cardiogenic shock STEMI Cognitive impairment Chronic aspiration with recurrent aspiration pneumonia PEG tube in place Low BMI Four physicians in agreement that aggressive care is unwarranted and futile (Too Messina Gellender, Osito) Continue comfort measures Diagnosis/Problems Diagnosis/Problems (1) STEMI (ST elevation myocardial infarction) Status: Acute (2) Shock Status: Acute (3) Chronic pulmonary aspiration Status: Chronic (4) Cognitive impairment Status: Chronic (5) PEG (percutaneous endoscopic gastrostomy) status Status: Chronic ELYSSA ANTUNEZ MD Jan 15, 2021 11:09
[2021-01-16] MEDS: morphine INJ 4 MG/ML 1 ML (VIAL/SYRINGE) IV PRN ×2 (06:29→13:56)
[2021-01-16] MEDS: SALIVA STIMULANT MOUTH SPRAY (BIOTENE) 1.5 OZ MM PRN ×3 (07:54→13:05)
[2021-01-16] MEDS: ARTIFICAL TEARS 0.4 ML UNIT DOSE (REFRESH PLUS) OU PRN ×2 (07:58→13:05)
[2021-01-16] MEDS: ACETAMINOPHEN 650 MG SUPP (TYLENOL) PR PRN ×3 (08:08→18:09)
--- NOTE | 2021-01-16 12:06 | Progress Note - Hospitalist ---
Subjective HPI/CC On Admission Date Seen by Provider: Jan 16, 2021 Time Seen by Provider: 10:00 Pt is a 65yoCM well known to me from [facility] previous admission who presented to the ER due to vomiting. He is unable to provide any history at this time and all of his history is obtained from the chart. He was found to have STEMI and Dr Messina called his brother who is his guardian to discuss goals of care and consent for invasive treatment. His BP was 50/28 on arrival and in apparent cardiogenic shock. His brother elected no invasive procedures including no cardiac cath. He requested measures geared only towards his comfort. This morning Jd is resting comfortably in his bed and opened his eyes briefly but when spoke to him. Subjective/Events-last exam He remains unresponsive. Objective Exam Vital Signs Vital Signs Date Time Temp Pulse Resp B/P (MAP) Pulse Ox O2 Delivery O2 Flow Rate FiO2 01/16/21 09:44 38.5 01/16/21 08:00 Room Air 01/14/21 08:00 80 0.00 01/11/21 22:00 82 20 51/35 Capillary Refill : Greater Than 3 SecondsGreater Than 3 Seconds General Appearance: No Apparent Distress, Chronically ill, Cachetic Respiratory: No Respiratory Distress, Wheezing Cardiovascular: No Murmur, Bradycardia Gastrointestinal: Soft, Abnormal Bowel Sounds Extremity: Normal Inspection, No Pedal Edema Neurologic/Psychiatric: Other (unresponsive) Skin: Warm/Dry, Pallor Results/Procedures Lab Patient resulted labs reviewed. Assessment/Plan Assessment and Plan Assess & Plan/Chief Complaint Cardiogenic shock STEMI Cognitive impairment Chronic aspiration with recurrent aspiration pneumonia PEG tube in place Low BMI Four physicians in agreement that aggressive care is unwarranted and futile (Too Messina Gellender, Osito), and his brother is in agreement Continue comfort measures Diagnosis/Problems Diagnosis/Problems (1) Comfort measures only status Status: Acute (2) STEMI (ST elevation myocardial infarction) Status: Acute (3) Shock Status: Acute (4) Chronic pulmonary aspiration Status: Chronic (5) Cognitive impairment Status: Chronic (6) PEG (percutaneous endoscopic gastrostomy) status Status: Chronic ELYSSA ANTUNEZ MD Jan 16, 2021 12:06
[2021-01-17] MEDS: ACETAMINOPHEN 650 MG SUPP (TYLENOL) PR PRN (00:13)
--- NOTE | 2021-01-17 11:52 | Discharge Summary ---
Discharge Summary Hospital Course Was the Problem List Reviewed?: Yes Problems/Dx: (1) Comfort measures only status Status: Acute (2) STEMI (ST elevation myocardial infarction) Status: Acute (3) Shock Status: Acute (4) Chronic pulmonary aspiration Status: Chronic (5) Cognitive impairment Status: Chronic (6) PEG (percutaneous endoscopic gastrostomy) status Status: Chronic Hospital Course Date of Admission: Jan 11, 2021 at 21:25 Admission Diagnosis : Cardiogenic shock due to STEMI Family Physician/Provider: Ben Dunbar DO Date of Discharge: 01/17/21 Discharge Diagnosis: Cardiogenic shock due to STEMI Hospital Course: Jd Neves was a 66 year old male with past medical history of cognitive impairment, chronic aspiration, cachexia, PEG tube dependence, who was admitted with cardiogenic shock due to ST elevation CA. Due to his chronic illnesses and poor prognosis, his brother requested that he be made comfortable. The ER physician, Dr. Messina, and the admitting physician, Dr. Gage, were in agreement that aggressive care and resuscitation measures would be futile. His primary care physician, Dr. Dunbar, was contacted and was in agreement. He was placed on comfort measures only status. He on 01/17/2021 at 0451. Labs and Pending Lab Test: Home Meds Active Reported Robafen (Guaifenesin) 100 Mg/5 Ml Liquid 20 Ml PEG TID Potassium Chloride 40 Meq/15 Ml Liquid 7.5 Ml PEG DAILY Famotidine 20 Mg Tablet 20 Mg PEG DAILY Furosemide 40 Mg Tablet 40 Mg PEG DAILY CRUSH TAB AND GIVE PER GTUBE Ibuprofen 100 Mg/5 Ml Oral.susp 20 Ml PEG Q6H PRN Acetaminophen 160 Mg/5 Ml Liquid 20 Ml PEG Q6H PRN FLUSH WITH 30ML OF WATER AFTER GIVING A DOSE Ondansetron Odt (Ondansetron) 4 Mg Tab.rapdis 4 Mg PO Q8H PRN Melatonin 5 Mg Tablet 5 Mg PEG HS Tetrahydrozoline HCl 15 Ml Drops 2 Drop OU Q6H PRN Milk of Magnesia (Magnesium Hydroxide) 400 Mg/5 Ml Oral.susp 30 Ml PEG Q12H PRN Olanzapine 10 Mg Tablet 10 Mg PEG HS Miralax (Polyethylene Glycol 3350) 17 Gm Powd.pack 17 Gm PEG DAILY Assessment/Pt Instructions Patient Discharge Planning: <30 minutes discharge planning Discharge Physical Examination Vital Signs Vital Signs Date Time Temp Pulse Resp B/P (MAP) Pulse Ox O2 Delivery O2 Flow Rate FiO2 01/17/21 00:56 36.9 01/16/21 19:53 Room Air 01/16/21 19:33 18 01/14/21 08:00 80 0.00 01/11/21 22:00 82 51/35 Allergies: Coded Allergies: No Known Drug Allergies (Unverified , 08/08/13) Copy Copies To 1: BEN DUNBAR DO Discharge Summary Date of Admission Jan 11, 2021 at 21:25 Date of Discharge Discharge Date: Jan 17, 2021 Discharge Time: 04:51 Admission Diagnosis Cardiogenic shock from STEMI Comfort Measures/ End of Life Care: Comfort Measures Date of : Jan 17, 2021 Time of : 04:51 Discharge Diagnosis Cardiogenic shock STEMI Cognitive impairment Chronic aspiration with recurrent aspiration pneumonia PEG tube in place Low BMI (1) Comfort measures only status Status: Acute (2) STEMI (ST elevation myocardial infarction) Status: Acute (3) Shock Status: Acute (4) Chronic pulmonary aspiration Status: Chronic (5) Cognitive impairment Status: Chronic (6) PEG (percutaneous endoscopic gastrostomy) status Status: Chronic ELYSSA ANTUNEZ MD Jan 17, 2021 11:52
== END 2021-01-17 17:32 | disposition expired ==
LOC: EDUNIT# 20:48 → ER 20:49 → 4TH 21:25
PROVIDERS: ADMIT Family Medicine; ATTEND Internal Medicine
DX: I21.4 Non-ST elevation (NSTEMI) myocardial infarction (principal); J69.0 Pneumonitis due to inhalation of food and vomit; E43 Unspecified severe protein-calorie malnutrition; R64 Cachexia; Z68.1 Body mass index [BMI] 19.9 or less, adult; R57.0 Cardiogenic shock; Z66 Do not resuscitate; Z51.5 Encounter for palliative care; G31.84 Mild cognitive impairment of uncertain or unknown etiology; Z93.1 Gastrostomy status; Z20.822 Contact with and (suspected) exposure to COVID-19; G40.909 Epilepsy, unspecified, not intractable, without status epilepticus; F89 Unspecified disorder of psychological development; K21.9 Gastro-esophageal reflux disease without esophagitis; F41.9 Anxiety disorder, unspecified; N19 Unspecified kidney failure
CPT/HCPCS: 36415; 51702; 71045; 80053; 81000; 82150; 83690; 83735; 84484; 85007; 85027; 87635; 93005; 93041